=== PATIENT | female | born 1945 | race Caucasian/White ===

== ENCOUNTER → 2016-11-04 | Outpatient (REF) | payer OTHER, MEDICAID ==
[~2016-11-04] MED LIST: /ADVA50050; /GLYB5TA; /MOXI40TA; /TIOT18INH; ADV500INH INH; ALBU83IN; ALBU83IN INH; ALLO300T; ATOR40TA PO; CEFT250T; DIOV80TA3 PO; DOCU100C PO; DRISDOL; FERR324T5; FLAG500T PO; FLON0.05; FURO40TA2 PO; GABA-282 PO; GLIP5TAB PO; GLYBURIDE/METFORMIN; IMIP25TA2 PO; INCR1INH INH; INSUDET SC; INSULANT; LASI80TA; LASI80TA PO; LEVO500T32 PO; LIPI20TA; LORT5TAB PO; METF500T4; MILKSUS; MONT10TA2 PO; NYST50SS SS; NYSTATIN ORAL; OMEP40CA2 PO; PRED20TA; PRED5TAB; PRIL20CA; PROV90AE; SENN8.6T10 PO; SENO8.6T5; SING10TA31; SYNT125T; SYNT175T2 PO; TOFR50TA; TRIAMCINOLONE 0.1%; VALS80CA; VICT18IN SC; VITA50003 PO; VITAMIN D50000 UNT; XANA0.5T; XANA0.5T PO; ZOLO100T; ZYLO300T4 PO
== END ==
LOC: M SFHCPLAZ 08:24
PROVIDERS: ATTEND Internal Medicine
DX: N18.3 Chronic kidney disease, stage 3 (moderate) (principal); E78.00 Pure hypercholesterolemia, unspecified; E03.9 Hypothyroidism, unspecified; Z79.899 Other long term (current) drug therapy

== ENCOUNTER → 2017-03-02 | Outpatient (REF) | payer OTHER, MEDICAID ==
[~2017-03-02] MED LIST changes: -ATOR40TA PO; +ATOR40TA75 PO; -DOCU100C PO; +DOCU100C16 PO; -IMIP25TA2 PO; +IMIP25TA3 PO; +LEVO500T3 PO; -LEVO500T32 PO; +SENN1TAB10 PO; -SENN8.6T10 PO; +VITA1CAP40 PO; -VITA50003 PO
[2017-03-02 12:14] LABS: MEAN CORPUSCULAR HEMOGLOBIN 29.3 pg (27.0-33.0); MEAN CORPUSCULAR HGB CONC 32.3 g/dl (32.0-36.5); MEAN CORPUSCULAR VOLUME 90.8 fl (80.0-96.0); RED CELL DISTRIBUTION WIDTH 14.7 % (11.5-14.5); WHITE BLOOD COUNT 7.9 K/mm3 (4.0-10.0)
[2017-03-02 12:33] LABS: ALBUMIN/GLOBULIN RATIO 0.94 (1.00-1.93); BILIRUBIN,TOTAL 0.2 MG/DL (0.2-1.0); CALCIUM LEVEL 8.6 MG/DL (8.8-10.2); CREATININE FOR GFR 1.51 MG/DL (0.55-1.02); GLOMERULAR FILTRATION RATE 36.1 (>39); POTASSIUM SERUM 4.5 MEQ/L (3.5-5.1); TOTAL PROTEIN 6.2 GM/DL (6.4-8.2)
== END ==
LOC: M SFHCPLAZ 08:58
PROVIDERS: ATTEND Internal Medicine
DX: N18.3 Chronic kidney disease, stage 3 (moderate) (principal); D63.8 Anemia in other chronic diseases classified elsewhere; E11.21 Type 2 diabetes mellitus with diabetic nephropathy

== ENCOUNTER 2017-06-16 07:43 | Day surgery (SDC) | payer OTHER, MEDICAID ==
[~2017-06-16] VITALS: Ht 152.4 cm; Wt 105.6 kg
[~2017-06-16 07:43] MED LIST changes: +BSS with VANC/TOB/EPI for EYE CASES IR ONE; +CYCLOPENTOLATE 2% OPHTH SOLN 2ML BTL OS ONE; +LIDOCAINE 3.5 % 1ML OPHTH TOPICAL GEL OU ONE; +OFLOXACIN 0.3 % (OCUFLOX) OPTH SOL 5ML OS ONE; +PHENYLEPHRINE 2.5% OPHTH SOL 2ML OS ONE; +TROPICAMIDE 1% OPHTH SOLN 2ML OS ONE
[2017-06-16] MEDS ORDERED: POVIDONE-IODINE 5% OPHTH PREP SOL 30ML As Ordered ONE (10:03)
[2017-06-16] MEDS ORDERED: LIDOCAINE 1% SDV 5 ML VIAL As Ordered ONE (10:03)
[2017-06-16] MEDS ORDERED: TRIAMCINOLONE PRES FR 40 MG/ML 1ML(TRIESENCE)(OR EYE ONLY)(J3300 PER 1MG) As Ordered ONE (10:03)
[2017-06-16] MEDS ORDERED: HEALON DUET (HEALON 10MG/ML 0.55ML & HEALON ENDOCOAT 30MG/ML 0.85ML) As Ordered ONE (10:04)
[2017-06-16] MEDS ORDERED: MOXIFLOXACIN IN BSS 0.25MG/0.25ML INTRACAMERAL INJ (OR EYE ONLY)(J2280) As Ordered ONE (10:04)
[2017-06-16] MEDS ORDERED: MIDAZOLAM INJ 2 MG/2 ML VIAL (J2250) As Ordered ONE (10:23)
[2017-06-16] MEDS ORDERED: fentaNYL 100 MCG/2 ML INJECTION (J3010) As Ordered ONE (10:25)
[2017-06-16 11:00] VITALS: BP 119/59
--- NOTE | 2017-06-16 11:03 | RO ---
DATE OF PROCEDURE: 06/16/2017 PREPROCEDURE DIAGNOSES: Cataract left eye. Myosis left eye. POSTPROCEDURE DIAGNOSES: Cataract left eye. Myosis left eye. PROCEDURE: Phacoemulsification with intraocular lens implantation HOYA +2 24.5 and placement of Malyugin ring 7 mm. SURGEON: Dr. Gertrude Gold. CELLOPHANE WORKER: None. ANESTHESIA: COMPLICATION: None. DESCRIPTION OF PROCEDURE: The patient was brought to the operating room and laid in the supine position. The left eye was prepped and draped in a sterile fashion for ophthalmic surgery and a lid speculum was placed. A side-port incision was made and EndoCoat was injected into the anterior chamber. A temporal clear corneal incision was then made with a 2.5 mm keratome followed by capsulorrhexis. Prior to capsulorrhexis, a Malyugin ring 7 mm size was introduced into the anterior chamber to dilate the pupil. Hydrodissection was then carried out followed by phacoemulsification in a divide and conquer method within the capsular bag. This was followed by aspiration of the cortical material with irrigation and aspiration cannula. Healon was then placed into the capsular bag, intraocular lens inserted and Malyugin ring removed with the help of the introducer. Excess viscoelastic was aspirated. The wound hydrated and no leaks were noted. Intracameral moxifloxacin was given with triamcinolone. The lid speculum was removed. The patient returned to the recovery room in stable condition.
== END 2017-06-16 11:18 | disposition home or self-care (01) ==
LOC: M SDC 07:43
PROVIDERS: ATTEND Ophthalmology
DX: H25.012 Cortical age-related cataract, left eye (principal); H57.03 Miosis; I12.9 Hypertensive chronic kidney disease with stage 1 through stage 4 chronic kidney disease, or unspecified chronic kidney disease; N18.3 Chronic kidney disease, stage 3 (moderate); E78.00 Pure hypercholesterolemia, unspecified; E11.21 Type 2 diabetes mellitus with diabetic nephropathy; E03.9 Hypothyroidism, unspecified; K21.9 Gastro-esophageal reflux disease without esophagitis; D63.8 Anemia in other chronic diseases classified elsewhere; R06.02 Shortness of breath; M12.9 Arthropathy, unspecified; M10.9 Gout, unspecified; F34.1 Dysthymic disorder; M51.9 Unspecified thoracic, thoracolumbar and lumbosacral intervertebral disc disorder; J44.9 Chronic obstructive pulmonary disease, unspecified; R06.83 Snoring; G47.30 Sleep apnea, unspecified; Z88.0 Allergy status to penicillin; Z88.2 Allergy status to sulfonamides; Z88.8 Allergy status to other drugs, medicaments and biological substances; Z79.899 Other long term (current) drug therapy; Z79.4 Long term (current) use of insulin; Z90.710 Acquired absence of both cervix and uterus; Z78.0 Asymptomatic menopausal state; Z98.51 Tubal ligation status; Z96.612 Presence of left artificial shoulder joint; Z96.643 Presence of artificial hip joint, bilateral
CPT/HCPCS: 66982; J2250; J2280; J3010; J3300; V2632

== ENCOUNTER 2017-06-23 18:27 | Emergency (ER) | payer OTHER, MEDICAID ==
[~2017-06-23] VITALS: Ht 162.6 cm; Wt 104.5 kg
[~2017-06-23 18:27] MED LIST changes: -BSS with VANC/TOB/EPI for EYE CASES IR ONE; -CYCLOPENTOLATE 2% OPHTH SOLN 2ML BTL OS ONE; -LIDOCAINE 3.5 % 1ML OPHTH TOPICAL GEL OU ONE; -OFLOXACIN 0.3 % (OCUFLOX) OPTH SOL 5ML OS ONE; -PHENYLEPHRINE 2.5% OPHTH SOL 2ML OS ONE; -TROPICAMIDE 1% OPHTH SOLN 2ML OS ONE
[2017-06-23] MEDS ORDERED: ZOLO100T PO (18:43)
[2017-06-23] MEDS ORDERED: PERCOCET 5MG/325MG TAB PO ONE (19:30)
[2017-06-23] MEDS ORDERED: CYCLOBENZAPRINE 10 MG TAB PO ONE (19:30)
--- NOTE | 2017-06-23 20:17 | REP ---
Clinical: Neck pain. Technique: AP, lateral, flexion/extension, open-mouth, swimmer's and bilateral oblique views of the cervical spine. Comparison: 08/09/2001. Findings: Moderate to early advanced multilevel degenerative changes include osteophytosis, endplate sclerosis and disc space narrowing. Evidence for prior anterior fusion at the C5-6 level. Alignment is maintained. No acute fracture / compression injury or subluxation identified. Open mouth view demonstrates normal C1-C2 articulation and odontoid process. Oblique views demonstrate foraminal narrowing primarily at the C3-4 and C4-5 levels. Impression: Moderate/early advanced multilevel degenerative changes. Signed by Roland Graham MD 06/23/2017 08:09 P
[2017-06-23 20:55] VITALS: BP 138/67
[2017-06-23] MEDS ORDERED: PERC5TAB12 PO (21:04)
[2017-06-23] MEDS ORDERED: CYCL10TA PO (21:04)
== END 2017-06-23 21:40 | disposition home or self-care (01) ==
LOC: M ED 18:27
DX: M47.812 Spondylosis without myelopathy or radiculopathy, cervical region (principal); S13.4XXA Sprain of ligaments of cervical spine, initial encounter; X58.XXXA Exposure to other specified factors, initial encounter; Y92.89 Other specified places as the place of occurrence of the external cause; Y93.89 Activity, other specified; Y99.8 Other external cause status; E11.9 Type 2 diabetes mellitus without complications; I11.0 Hypertensive heart disease with heart failure; I50.9 Heart failure, unspecified; J45.909 Unspecified asthma, uncomplicated; G89.29 Other chronic pain; M54.9 Dorsalgia, unspecified; E78.5 Hyperlipidemia, unspecified; E03.9 Hypothyroidism, unspecified; F41.9 Anxiety disorder, unspecified; F33.9 Major depressive disorder, recurrent, unspecified; D64.9 Anemia, unspecified; G62.9 Polyneuropathy, unspecified; Z87.442 Personal history of urinary calculi; Z79.899 Other long term (current) drug therapy; Z79.4 Long term (current) use of insulin; Z79.51 Long term (current) use of inhaled steroids; Z88.0 Allergy status to penicillin; Z88.1 Allergy status to other antibiotic agents; Z88.2 Allergy status to sulfonamides; Z88.5 Allergy status to narcotic agent; Z88.8 Allergy status to other drugs, medicaments and biological substances; L23.1 Allergic contact dermatitis due to adhesives; Z87.891 Personal history of nicotine dependence

== ENCOUNTER → 2017-06-30 | Outpatient (CLI) | payer OTHER, MEDICAID ==
[~2017-06-30] MED LIST changes: +CYCL10TA PO; +PERC5TAB12 PO; +ZOLO100T PO
--- NOTE | 2017-06-30 10:49 | REPMRS ---
Patient History The patient states she had a clinical breast exam in 2016. Patient is postmenopausal. Family history of unknown cancer in son under age 50. Benign excisional biopsy of the left breast. Took unspecified hormones for 2 years. Digital Mammo Screening Bilat: June 30, 2017 - Exam #: [id number] Bilateral CC and MLO view(s) were taken. Technologist: Heidy Peter, Technologist Prior study comparison: June 29, 2016, bilateral digital mammo screening bilat performed at [facility]. June 15, 2014, bilateral bilat screen digital mammo, performed at [facility] ([facility]). FINDINGS: There are scattered fibroglandular densities. There has been no change in the appearance of the mammogram from the prior studies. There is a mild amount of scattered fibroglandular density which is fairly symmetric. There is no interval development of dominant mass, architectural distortion, or clustered microcalcification suggestive of malignancy. ASSESSMENT: BI-RADS/ACR category 1 mammogram. Negative. Recommendation Routine screening mammogram in 1 year (for women over age 40). This mammogram was interpreted with the aid of an FDA-approved computer-aided dectection system. Electronically Signed By: Froy Mohr MD 06/30/17 [id number]
== END ==
LOC: M RAD 10:11
PROVIDERS: ATTEND Obstetrics & Gynecology
DX: Z12.31 Encounter for screening mammogram for malignant neoplasm of breast (principal); Z78.0 Asymptomatic menopausal state; Z79.890 Hormone replacement therapy; Z80.9 Family history of malignant neoplasm, unspecified

== ENCOUNTER → 2017-08-13 | Outpatient (REF) | payer OTHER, MEDICAID ==
[2017-08-13 14:04] LABS: HEMATOCRIT 28.6 % (36.0-47.0); HEMOGLOBIN 8.9 g/dl (12.0-16.0); MEAN CORPUSCULAR HEMOGLOBIN 28.7 pg (27.0-33.0); MEAN CORPUSCULAR HGB CONC 31.1 g/dl (32.0-36.5); MEAN CORPUSCULAR VOLUME 92.3 fl (80.0-96.0); PLATELET COUNT, AUTOMATED 323 10^3/uL (150-450); RED CELL DISTRIBUTION WIDTH 15.1 % (11.5-14.5); WHITE BLOOD COUNT 11.8 10^3/uL (4.0-10.0)
[2017-08-13 14:40] LABS: ALBUMIN 3.5 GM/DL (3.2-5.2); ALBUMIN/GLOBULIN RATIO 1.06 (1.00-1.93); ALKALINE PHOSPHATASE 138 U/L (45-117); ALT/SGPT 15 U/L (12-78); ANION GAP 7 MEQ/L (8-16); AST/SGOT 15 U/L (7-37); BILIRUBIN,TOTAL 0.2 MG/DL (0.2-1.0); BLOOD UREA NITROGEN 39 MG/DL (7-18); CALCIUM LEVEL 8.9 MG/DL (8.8-10.2); CARBON DIOXIDE LEVEL 32 MEQ/L (21-32); CHLORIDE LEVEL 101 MEQ/L (98-107); CHOLESTEROL LEVEL 191 MG/DL (<200); CHOLESTEROL RISK RATIO 3.131 (<5); CREATININE FOR GFR 1.59 MG/DL (0.55-1.02); GLUCOSE, FASTING 146 MG/DL (83-110); HDL CHOLESTEROL 61 MG/DL (>40); LDL CHOLESTEROL 90.8 MG/DL (<100); NON-HDL-C 130 MG/DL; POTASSIUM SERUM 4.4 MEQ/L (3.5-5.1); SODIUM LEVEL 140 MEQ/L (136-145); TOTAL PROTEIN 6.8 GM/DL (6.4-8.2); TRIGLYCERIDES LEVEL 196 MG/DL (<150)
[2017-08-13 15:05] LABS: ESTIMATED AVERAGE GLUCOSE 148 MG/DL (60-110); HEMOGLOBIN A1c 6.8 %
[2017-08-13 16:39] LABS: TOTAL 25(OH) VITAMIN D 108.5 NG/ML (30.0-100.0)
[2017-08-13 16:40] LABS: PTH INTACT 157.2 PG/ML (14.0-72.0)
== END ==
LOC: M SFHCPLAZ 09:27
DX: N18.3 Chronic kidney disease, stage 3 (moderate) (principal); D63.1 Anemia in chronic kidney disease; E11.21 Type 2 diabetes mellitus with diabetic nephropathy; E78.00 Pure hypercholesterolemia, unspecified; E03.9 Hypothyroidism, unspecified; E55.9 Vitamin D deficiency, unspecified
CPT/HCPCS: 84443

== ENCOUNTER → 2017-11-01 | Outpatient (REF) | payer OTHER, MEDICAID ==
[2017-11-01 11:44] LABS: HEMATOCRIT 27.1 % (36.0-47.0); HEMOGLOBIN 8.3 g/dl (12.0-15.5); MEAN CORPUSCULAR HEMOGLOBIN 27.8 pg (27.0-33.0); MEAN CORPUSCULAR HGB CONC 30.6 g/dl (32.0-36.5); MEAN CORPUSCULAR VOLUME 90.6 fl (80.0-96.0); PLATELET COUNT, AUTOMATED 318 10^3/uL (150-450); RED BLOOD COUNT 2.99 10^6/uL (4.00-5.40); RED CELL DISTRIBUTION WIDTH 14.9 % (11.5-14.5); WHITE BLOOD COUNT 9.9 10^3/uL (4.0-10.0)
[2017-11-01 11:59] LABS: TOTAL 25(OH) VITAMIN D 74.4 NG/ML (30.0-100.0)
[2017-11-01 12:06] LABS: ESTIMATED AVERAGE GLUCOSE 174 MG/DL (60-110); HEMOGLOBIN A1c 7.7 %
[2017-11-01 12:59] LABS: ALBUMIN 2.8 GM/DL (3.2-5.2); ALBUMIN/GLOBULIN RATIO 0.82 (1.00-1.93); ALKALINE PHOSPHATASE 116 U/L (45-117); ALT/SGPT 11 U/L (12-78); ANION GAP 10 MEQ/L (8-16); AST/SGOT 10 U/L (7-37); BILIRUBIN,TOTAL 0.2 MG/DL (0.2-1.0); BLOOD UREA NITROGEN 23 MG/DL (7-18); CARBON DIOXIDE LEVEL 29 MEQ/L (21-32); CHLORIDE LEVEL 105 MEQ/L (98-107); CREATININE FOR GFR 1.23 MG/DL (0.55-1.30); GLOMERULAR FILTRATION RATE 45.6 (>39); GLUCOSE, FASTING 114 MG/DL (70-100); POTASSIUM SERUM 3.8 MEQ/L (3.5-5.1); SODIUM LEVEL 144 MEQ/L (136-145); THYROID STIMULATING HORMONE 0.167 uIU/ML (0.358-3.740); TOTAL PROTEIN 6.2 GM/DL (6.4-8.2); URIC ACID 5.4 MG/DL (2.6-6.0)
[2017-11-01 19:37] LABS: CREATININE, URINE 66.6 MG/DL; MALB URINE SIEMENS 99.4 MG/L; MAU/CREAT RATIO 149.2 MCG/MG (0.0-30.0)
== END ==
LOC: M SFHCPLAZ 09:04
DX: E03.9 Hypothyroidism, unspecified (principal); E11.21 Type 2 diabetes mellitus with diabetic nephropathy; N18.3 Chronic kidney disease, stage 3 (moderate); M10.9 Gout, unspecified; E55.9 Vitamin D deficiency, unspecified; D63.8 Anemia in other chronic diseases classified elsewhere
CPT/HCPCS: 84443

== ENCOUNTER 2018-02-20 12:21 | Emergency (ER) | payer OTHER, MEDICAID ==
[2018-02-20 16:02] LABS: HEMATOCRIT 29.8 % (36.0-47.0); HEMOGLOBIN 9.3 g/dl (12.0-15.5); MEAN CORPUSCULAR HEMOGLOBIN 27.4 pg (27.0-33.0); MEAN CORPUSCULAR HGB CONC 31.2 g/dl (32.0-36.5); MEAN CORPUSCULAR VOLUME 87.9 fl (80.0-96.0); PLATELET COUNT, AUTOMATED 327 10^3/uL (150-450); RED BLOOD COUNT 3.39 10^6/uL (4.00-5.40); RED CELL DISTRIBUTION WIDTH 16.1 % (11.5-14.5); WHITE BLOOD COUNT 10.9 10^3/uL (4.0-10.0)
[2018-02-20 16:20] LABS: ANION GAP 8 MEQ/L (8-16); BLOOD UREA NITROGEN 62 MG/DL (7-18); C REACTIVE PROTEIN QUANTITATIV 0.62 MG/DL (0.00-0.30); CARBON DIOXIDE LEVEL 32 MEQ/L (21-32); CHLORIDE LEVEL 101 MEQ/L (98-107); CREATININE FOR GFR 1.74 MG/DL (0.55-1.30); GLOMERULAR FILTRATION RATE 30.5 (>39); GLUCOSE, FASTING 75 MG/DL (70-100); POTASSIUM SERUM 3.9 MEQ/L (3.5-5.1); SODIUM LEVEL 141 MEQ/L (136-145)
[2018-02-20 16:21] LABS: ERYTHROCYTE SEDIMENTATION RATE 99 mm/hr (0-30)
== END 2018-02-20 17:04 | disposition home or self-care (01) ==
LOC: M ED 12:21
DX: L53.9 Erythematous condition, unspecified (principal); D50.9 Iron deficiency anemia, unspecified; E11.9 Type 2 diabetes mellitus without complications; J44.9 Chronic obstructive pulmonary disease, unspecified; E07.9 Disorder of thyroid, unspecified; M10.9 Gout, unspecified; F33.9 Major depressive disorder, recurrent, unspecified; F41.9 Anxiety disorder, unspecified; M51.9 Unspecified thoracic, thoracolumbar and lumbosacral intervertebral disc disorder; Z86.79 Personal history of other diseases of the circulatory system; Z86.39 Personal history of other endocrine, nutritional and metabolic disease; Z87.891 Personal history of nicotine dependence; Z79.899 Other long term (current) drug therapy; Z79.4 Long term (current) use of insulin; Z79.890 Hormone replacement therapy; Z86.19 Personal history of other infectious and parasitic diseases
CPT/HCPCS: 93970

== ENCOUNTER 2018-02-26 12:29 | Inpatient (IN) | payer OTHER, MEDICAID ==
[2018-02-26] MEDS: MORPHINE 2 MG/ML 1ML SYRINGE (J2270) IV ×2 (13:12→14:43)
[2018-02-26] MEDS: ONDANSETRON 4MG/2ML VIAL (J2405) IV (13:13)
[2018-02-26 13:18] LABS: BASO % 0.3 % (0.0-1.0); EOS # 0.2 10^3/uL (0.0-0.50); EOS % 1.2 % (0.0-3.0); HEMATOCRIT 30.7 % (36.0-47.0); HEMOGLOBIN 9.5 g/dl (12.0-15.5); IMMATURE GRANULOCYTE % 0.5 % (0-3.0); LYMPH # 1.8 10^3/uL (1.5-4.5); MEAN CORPUSCULAR HEMOGLOBIN 27.2 pg (27.0-33.0); MEAN CORPUSCULAR HGB CONC 30.9 g/dl (32.0-36.5); MONO # 0.8 10^3/uL (0.0-0.8); MONO % 5.3 % (0.0-5.0); NEUTROPHILS # 12.1 10^3/uL (1.8-7.7); NEUTROPHILS % 80.7 % (36.0-66.0); PLATELET COUNT, AUTOMATED 325 10^3/uL (150-450); RED BLOOD COUNT 3.49 10^6/uL (4.00-5.40); RED CELL DISTRIBUTION WIDTH 16.1 % (11.5-14.5)
[2018-02-26 13:55] LABS: ALBUMIN/GLOBULIN RATIO 0.86 (1.00-1.93); ALKALINE PHOSPHATASE 138 U/L (45-117); ALT/SGPT 13 U/L (12-78); ANION GAP 8 MEQ/L (8-16); AST/SGOT 11 U/L (7-37); BILIRUBIN,DIRECT < 0.1 MG/DL (0.0-0.2); BILIRUBIN,TOTAL 0.3 MG/DL (0.2-1.0); BLOOD UREA NITROGEN 55 MG/DL (7-18); C REACTIVE PROTEIN QUANTITATIV 2.44 MG/DL (0.00-0.30); CALCIUM LEVEL 8.9 MG/DL (8.8-10.2); CARBON DIOXIDE LEVEL 31 MEQ/L (21-32); CHLORIDE LEVEL 99 MEQ/L (98-107); CPK CREATINE PHOSPHOKINASE 33 U/L (26-192); CREATININE FOR GFR 1.77 MG/DL (0.55-1.30); FREE T4 1.23 NG/DL (0.76-1.46); GLOMERULAR FILTRATION RATE 29.9 (>39); GLUCOSE, FASTING 109 MG/DL (70-100); POTASSIUM SERUM 4.2 MEQ/L (3.5-5.1); SODIUM LEVEL 138 MEQ/L (136-145); THYROID STIMULATING HORMONE 0.361 uIU/ML (0.358-3.740); TOTAL PROTEIN 6.5 GM/DL (6.4-8.2)
[2018-02-26 14:02] LABS: ERYTHROCYTE SEDIMENTATION RATE 72 mm/hr (0-30)
[2018-02-26] MEDS ORDERED: IPRATROPIUM 0.5MG/ALBUTEROL 2.5MG INH SOL UD 3ML (DUONEB)(J7620) NEB (16:30)
[2018-02-26] MEDS ORDERED: GLUCOSE 4 GM CHEW TABLET PO (16:30)
[2018-02-26] MEDS ORDERED: ALBUTEROL SULFATE 2.5 MG/0.5 ML INH NEB SOLN INH (16:30)
[2018-02-26] MEDS ORDERED: GLUCAGON FOR INJ 1 MG VIAL (J1610) SC (16:30)
[2018-02-26] MEDS ORDERED: DEXTROSE 50% 50 ML SYRINGE IV (16:30)
[2018-02-26] MEDS ORDERED: ACETAMINOPHEN TAB 650MG DOSE (2X325MG) PO (16:45)
[2018-02-26 16:54] LABS: URIC ACID 4.2 MG/DL (2.6-6.0)
[2018-02-26] MEDS: MORPHINE 4 MG/ML 1ML VIAL/SYRINGE (J2270) IV ×2 (17:25→19:59)
[2018-02-26 17:40] LABS: BEDSIDE GLUCOSE 66 MG/DL (83-110)
[2018-02-26] MEDS: HumaLOG INSULIN (NovoLOG) PER UNIT SC ×2 (17:46→21:00)
[2018-02-26] MEDS ORDERED: LR 1,000 ML IV (18:00)
[2018-02-26] MEDS: LIDOCAINE 5% OINT 30 GM TOP (18:22)
[2018-02-26 18:32] LABS: BEDSIDE GLUCOSE 110 MG/DL (83-110)
[2018-02-26] MEDS: FEBUXOSTAT 40 MG TABLET (ULORIC) PO (18:45)
[2018-02-26] MEDS: NS 1,000 ML IV (19:10)
[2018-02-26] MEDS: PERCOCET 5MG/325MG TAB PO (19:25)
[2018-02-26] MEDS: ALPRAZolam 0.5 MG TAB PO (20:35)
[2018-02-26] MEDS: GABAPENTIN 300 MG CAP PO (20:35)
[2018-02-26] MEDS: OMEPRAZOLE 20 MG CAP PO (20:36)
[2018-02-26] MEDS: SENOKOT S TAB PO (20:36)
[2018-02-26] MEDS: ADVAIR HFA 230/21MCG INHALER INH (21:00)
[2018-02-26 21:50] LABS: BEDSIDE GLUCOSE 118 MG/DL (83-110)
[2018-02-26 21:57] LABS: SOURCE, BODY FLUID RT KNEE; SYNOVIAL FLUID COLOR PALE YELLOW (YELLOW)
[2018-02-26 21:58] LABS: APPEARANCE, BODY FLUID CLOUDY (CLEAR)
[2018-02-26 22:09] LABS: CRYSTALS, BODY FLUID CA PYROPHOSPHATE (NONE SEEN); SOURCE, BODY FLUID CRYSTALS RT KNEE
[2018-02-26 22:21] LABS: BF DIFF IF INDICATED? YES (NO); BF MONONUCLEAR CELL % 16.3 % (0-0); BF POLYMORPHONUCLEAR CELL % 83.7 % (0-0); RBC BODY FLUID < 2 10^3/uL (<2); WBC BODY FLUID 13430 /uL (0-10)
[2018-02-26 22:22] LABS: SOURCE, BODY FLUID GLUCOSE RT KNEE; SOURCE, BODY FLUID URIC ACID RT KNEE; URIC ACID, BODY FLUID 4.7 MG/DL (NOT ESTABLISHED)
[2018-02-26] MEDS: HEPARIN SOD (PORCINE) 5000 UNITS/ML VIAL SC (23:42)
[2018-02-26] MEDS: predniSONE 20 MG TAB PO (23:42)
[2018-02-27] MEDS: NYSTATIN 100,000 UNITS/GM TOPICAL PWD 15 GM TOP ×3 (00:16→21:54)
[2018-02-27] MEDS: BETAMETHASONE DIP 0.05% OINT 15 GM TOP ×2 (00:16→21:54)
[2018-02-27] MEDS: IMIPRAMINE 25 MG TAB PO ×3 (00:16→21:52)
[2018-02-27] MEDS: AQUAPHOR **100GM** OINT TOP ×2 (00:16→21:54)
[2018-02-27] MEDS: PERCOCET 5MG/325MG TAB PO ×3 (00:27→21:53)
[2018-02-27] MEDS: LEVOTHYROXINE 75MCG TABLET (0.075MG) PO (05:23)
[2018-02-27] MEDS: LEVOTHYROXINE 100MCG TABLET (0.1MG) PO (05:23)
[2018-02-27] MEDS: HEPARIN SOD (PORCINE) 5000 UNITS/ML VIAL SC ×3 (05:24→21:52)
[2018-02-27 06:27] LABS: HEMATOCRIT 27.5 % (36.0-47.0); HEMOGLOBIN 8.6 g/dl (12.0-15.5); MEAN CORPUSCULAR HEMOGLOBIN 27.7 pg (27.0-33.0); MEAN CORPUSCULAR HGB CONC 31.3 g/dl (32.0-36.5); MEAN CORPUSCULAR VOLUME 88.7 fl (80.0-96.0); PLATELET COUNT, AUTOMATED 247 10^3/uL (150-450); RED CELL DISTRIBUTION WIDTH 16.2 % (11.5-14.5); WHITE BLOOD COUNT 10.5 10^3/uL (4.0-10.0)
[2018-02-27 06:47] LABS: ANION GAP 7 MEQ/L (8-16); BLOOD UREA NITROGEN 52 MG/DL (7-18); C REACTIVE PROTEIN QUANTITATIV 4.69 MG/DL (0.00-0.30); CALCIUM LEVEL 8.5 MG/DL (8.8-10.2); CARBON DIOXIDE LEVEL 30 MEQ/L (21-32); CHLORIDE LEVEL 102 MEQ/L (98-107); CREATININE FOR GFR 1.82 MG/DL (0.55-1.30); GLUCOSE, FASTING 189 MG/DL (70-100); MAGNESIUM LEVEL 1.5 MG/DL (1.8-2.4); POTASSIUM SERUM 4.3 MEQ/L (3.5-5.1); SODIUM LEVEL 139 MEQ/L (136-145)
[2018-02-27] MEDS: HumaLOG INSULIN (NovoLOG) PER UNIT SC ×4 (07:30→21:00)
[2018-02-27] MEDS: ADVAIR HFA 230/21MCG INHALER INH ×2 (07:36→19:56)
[2018-02-27] MEDS: CALCITRIOL 0.25 MCG CAP (S0169) PO (08:15)
[2018-02-27] MEDS: ATORVASTATIN 20 MG TAB PO (08:15)
[2018-02-27] MEDS: MONTELUKAST 10 MG TAB PO (08:15)
[2018-02-27] MEDS: SERTRALINE HCL 25 MG TABLET PO (08:16)
[2018-02-27] MEDS: SERTRALINE HCL 50 MG TAB PO (08:16)
[2018-02-27] MEDS: predniSONE 20 MG TAB PO (08:16)
[2018-02-27] MEDS: GABAPENTIN 300 MG CAP PO ×3 (08:16→21:52)
[2018-02-27] MEDS: OMEPRAZOLE 20 MG CAP PO ×2 (08:16→21:53)
[2018-02-27] MEDS: SENOKOT S TAB PO ×2 (08:17→21:52)
[2018-02-27] MEDS: ALPRAZolam 0.5 MG TAB PO ×2 (08:17→21:52)
[2018-02-27] MEDS ORDERED: LEVEMIR (INSULIN DETEMIR) 1 UNITS/0.01ML SC (09:00)
[2018-02-27] MEDS: LIDOCAINE 5% OINT 30 GM TOP (09:00)
[2018-02-27] MEDS: NS 1,000 ML IV ×2 (10:35→22:50)
[2018-02-27] MEDS: MAG SULF 1GM/100ML (MAG RUN) 1 GM in APPROPRIATE DILUENT 1 EA IV (10:36)
[2018-02-27] MEDS: FEBUXOSTAT 40 MG TABLET (ULORIC) PO (10:38)
[2018-02-27 11:31] LABS: BEDSIDE GLUCOSE 324 MG/DL (83-110)
[2018-02-27 16:54] LABS: BEDSIDE GLUCOSE 202 MG/DL (83-110)
[2018-02-27 20:26] LABS: ANION GAP 8 MEQ/L (8-16); BLOOD UREA NITROGEN 61 MG/DL (7-18); CALCIUM LEVEL 8.1 MG/DL (8.8-10.2); CARBON DIOXIDE LEVEL 28 MEQ/L (21-32); CHLORIDE LEVEL 102 MEQ/L (98-107); CREATININE FOR GFR 2.08 MG/DL (0.55-1.30); GLOMERULAR FILTRATION RATE 24.8 (>39); GLUCOSE, FASTING 231 MG/DL (70-100); POTASSIUM SERUM 4.7 MEQ/L (3.5-5.1); SODIUM LEVEL 138 MEQ/L (136-145)
[2018-02-27 21:03] LABS: BEDSIDE GLUCOSE 186 MG/DL (83-110)
[2018-02-28 04:08] LABS: BODY FLUID RHEUMATOID SCREEN NEGATIVE (NEGATIVE)
[2018-02-28 04:09] LABS: MUCIN CLOT TEST 4+ (4+)
[2018-02-28] MEDS: LEVOTHYROXINE 75MCG TABLET (0.075MG) PO (05:29)
[2018-02-28] MEDS: HEPARIN SOD (PORCINE) 5000 UNITS/ML VIAL SC ×3 (05:29→22:12)
[2018-02-28] MEDS: LEVOTHYROXINE 100MCG TABLET (0.1MG) PO (05:29)
[2018-02-28 06:04] LABS: HEMATOCRIT 26.7 % (36.0-47.0); HEMOGLOBIN 8.3 g/dl (12.0-15.5); MEAN CORPUSCULAR HEMOGLOBIN 27.8 pg (27.0-33.0); MEAN CORPUSCULAR HGB CONC 31.1 g/dl (32.0-36.5); MEAN CORPUSCULAR VOLUME 89.3 fl (80.0-96.0); PLATELET COUNT, AUTOMATED 274 10^3/uL (150-450); RED BLOOD COUNT 2.99 10^6/uL (4.00-5.40); RED CELL DISTRIBUTION WIDTH 15.9 % (11.5-14.5)
[2018-02-28 06:18] LABS: ANION GAP 7 MEQ/L (8-16); BLOOD UREA NITROGEN 61 MG/DL (7-18); C REACTIVE PROTEIN QUANTITATIV 5.41 MG/DL (0.00-0.30); CALCIUM LEVEL 8.7 MG/DL (8.8-10.2); CARBON DIOXIDE LEVEL 30 MEQ/L (21-32); CHLORIDE LEVEL 102 MEQ/L (98-107); CREATININE FOR GFR 1.94 MG/DL (0.55-1.30); GLOMERULAR FILTRATION RATE 26.9 (>39); GLUCOSE, FASTING 160 MG/DL (70-100); MAGNESIUM LEVEL 1.8 MG/DL (1.8-2.4); POTASSIUM SERUM 4.4 MEQ/L (3.5-5.1); SODIUM LEVEL 139 MEQ/L (136-145)
[2018-02-28] MEDS: HumaLOG INSULIN (NovoLOG) PER UNIT SC ×4 (08:14→22:19)
[2018-02-28] MEDS: ADVAIR HFA 230/21MCG INHALER INH ×2 (08:36→21:13)
[2018-02-28] MEDS: INCRUSE ELLIPTA 62.5 MCG INH (09:00)
[2018-02-28] MEDS: LIDOCAINE 5% OINT 30 GM TOP (09:00)
[2018-02-28] MEDS: ALPRAZolam 0.5 MG TAB PO ×2 (11:09→22:12)
[2018-02-28] MEDS: MONTELUKAST 10 MG TAB PO (11:21)
[2018-02-28] MEDS: FEBUXOSTAT 40 MG TABLET (ULORIC) PO (11:21)
[2018-02-28] MEDS: CALCITRIOL 0.25 MCG CAP (S0169) PO (11:21)
[2018-02-28] MEDS: SENOKOT S TAB PO ×2 (11:22→22:12)
[2018-02-28] MEDS: IMIPRAMINE 25 MG TAB PO ×2 (11:22→22:12)
[2018-02-28] MEDS: ATORVASTATIN 20 MG TAB PO (11:22)
[2018-02-28] MEDS: SERTRALINE HCL 25 MG TABLET PO (11:22)
[2018-02-28] MEDS: GABAPENTIN 300 MG CAP PO ×3 (11:23→22:13)
[2018-02-28] MEDS: SERTRALINE HCL 50 MG TAB PO (11:23)
[2018-02-28] MEDS: OMEPRAZOLE 20 MG CAP PO ×2 (11:23→22:12)
[2018-02-28] MEDS: predniSONE 20 MG TAB PO (11:23)
[2018-02-28] MEDS: NYSTATIN 100,000 UNITS/GM TOPICAL PWD 15 GM TOP ×2 (11:24→22:14)
[2018-02-28 11:45] LABS: BEDSIDE GLUCOSE 149 MG/DL (83-110)
[2018-02-28] MEDS: NS 1,000 ML IV (13:09)
[2018-02-28] MEDS: PERCOCET 5MG/325MG TAB PO (15:19)
[2018-02-28 16:50] LABS: BEDSIDE GLUCOSE 274 MG/DL (83-110)
[2018-02-28 20:19] LABS: BEDSIDE GLUCOSE 350 MG/DL (83-110)
[2018-02-28] MEDS: BETAMETHASONE DIP 0.05% OINT 15 GM TOP (22:15)
[2018-02-28] MEDS: AQUAPHOR **100GM** OINT TOP (22:15)
[2018-02-28] MEDS: MIRALAX *UNIT DOSE* 17GM PACKET PO (22:56)
[2018-03-01] MEDS: LEVOTHYROXINE 75MCG TABLET (0.075MG) PO (05:17)
[2018-03-01] MEDS: HEPARIN SOD (PORCINE) 5000 UNITS/ML VIAL SC ×3 (05:17→22:00)
[2018-03-01] MEDS: LEVOTHYROXINE 100MCG TABLET (0.1MG) PO (05:17)
[2018-03-01 05:56] LABS: HEMATOCRIT 23.8 % (36.0-47.0); HEMOGLOBIN 7.6 g/dl (12.0-15.5); MEAN CORPUSCULAR HEMOGLOBIN 27.4 pg (27.0-33.0); MEAN CORPUSCULAR HGB CONC 31.9 g/dl (32.0-36.5); MEAN CORPUSCULAR VOLUME 85.9 fl (80.0-96.0); PLATELET COUNT, AUTOMATED 250 10^3/uL (150-450); RED BLOOD COUNT 2.77 10^6/uL (4.00-5.40); RED CELL DISTRIBUTION WIDTH 15.7 % (11.5-14.5); WHITE BLOOD COUNT 9.5 10^3/uL (4.0-10.0)
[2018-03-01 06:20] LABS: ANION GAP 8 MEQ/L (8-16); BLOOD UREA NITROGEN 53 MG/DL (7-18); C REACTIVE PROTEIN QUANTITATIV 2.42 MG/DL (0.00-0.30); CALCIUM LEVEL 8.4 MG/DL (8.8-10.2); CARBON DIOXIDE LEVEL 28 MEQ/L (21-32); CHLORIDE LEVEL 104 MEQ/L (98-107); CREATININE FOR GFR 1.54 MG/DL (0.55-1.30); GLOMERULAR FILTRATION RATE 35.2 (>39); GLUCOSE, FASTING 178 MG/DL (70-100); MAGNESIUM LEVEL 1.8 MG/DL (1.8-2.4); POTASSIUM SERUM 4.3 MEQ/L (3.5-5.1); SODIUM LEVEL 140 MEQ/L (136-145)
[2018-03-01] MEDS: ADVAIR HFA 230/21MCG INHALER INH ×2 (08:10→20:17)
[2018-03-01] MEDS: INCRUSE ELLIPTA 62.5 MCG INH (08:10)
[2018-03-01] MEDS: HumaLOG INSULIN (NovoLOG) PER UNIT SC ×4 (08:15→22:00)
[2018-03-01] MEDS: CALCITRIOL 0.25 MCG CAP (S0169) PO (08:16)
[2018-03-01] MEDS: ATORVASTATIN 20 MG TAB PO (08:16)
[2018-03-01] MEDS: ALPRAZolam 0.5 MG TAB PO ×2 (08:16→21:59)
[2018-03-01] MEDS: SENOKOT S TAB PO ×2 (08:16→21:59)
[2018-03-01] MEDS: GABAPENTIN 300 MG CAP PO ×3 (08:16→21:59)
[2018-03-01] MEDS: FEBUXOSTAT 40 MG TABLET (ULORIC) PO (08:16)
[2018-03-01] MEDS: IMIPRAMINE 25 MG TAB PO ×2 (08:16→21:59)
[2018-03-01] MEDS: OMEPRAZOLE 20 MG CAP PO ×2 (08:16→21:59)
[2018-03-01] MEDS: predniSONE 20 MG TAB PO (08:17)
[2018-03-01] MEDS: MONTELUKAST 10 MG TAB PO (08:17)
[2018-03-01] MEDS: SERTRALINE HCL 50 MG TAB PO (08:17)
[2018-03-01] MEDS: SERTRALINE HCL 25 MG TABLET PO (08:17)
[2018-03-01] MEDS: NYSTATIN 100,000 UNITS/GM TOPICAL PWD 15 GM TOP ×2 (08:18→22:01)
[2018-03-01] MEDS: LIDOCAINE 5% OINT 30 GM TOP (09:00)
[2018-03-01 11:38] LABS: BEDSIDE GLUCOSE 210 MG/DL (83-110)
[2018-03-01 15:13] LABS: HEMATOCRIT 24.4 % (36.0-47.0); HEMOGLOBIN 7.6 g/dl (12.0-15.5); MEAN CORPUSCULAR HGB CONC 31.1 g/dl (32.0-36.5); MEAN CORPUSCULAR VOLUME 86.8 fl (80.0-96.0); PLATELET COUNT, AUTOMATED 259 10^3/uL (150-450); RED BLOOD COUNT 2.81 10^6/uL (4.00-5.40); RED CELL DISTRIBUTION WIDTH 15.9 % (11.5-14.5); WHITE BLOOD COUNT 8.6 10^3/uL (4.0-10.0)
[2018-03-01 15:35] LABS: VITAMIN B12 LEVEL 285 PG/ML (247-911)
[2018-03-01 15:36] LABS: FOLATE 6.3 NG/ML (>5.4)
[2018-03-01 15:57] LABS: FERRITIN 63 NG/ML (8-252); IRON (FE) 45 UG/DL (50-170); PERCENT SATURATION 15.6 % (13.2-45.0); TOTAL IRON BINDING CAPACITY 289 UG/DL (250-450)
[2018-03-01 16:29] LABS: BEDSIDE GLUCOSE 307 MG/DL (83-110)
[2018-03-01 19:26] LABS: IMMEDIATE SPIN CROSSMATCH 1 1
[2018-03-01 21:14] LABS: BEDSIDE GLUCOSE 276 MG/DL (83-110)
[2018-03-01] MEDS: BETAMETHASONE DIP 0.05% OINT 15 GM TOP (22:01)
[2018-03-01] MEDS: AQUAPHOR **100GM** OINT TOP (22:01)
[2018-03-02 00:14] LABS: HERPES ZOSTER, VARICELLA IgG 1058 index (Immune >165)
[2018-03-02 00:14] LABS: HERPES ZOSTER, VARICELLA IgM <0.91 index (0.00-0.90)
[2018-03-02] MEDS: LEVOTHYROXINE 75MCG TABLET (0.075MG) PO (05:18)
[2018-03-02] MEDS: HEPARIN SOD (PORCINE) 5000 UNITS/ML VIAL SC ×2 (05:18→13:56)
[2018-03-02] MEDS: LEVOTHYROXINE 100MCG TABLET (0.1MG) PO (05:19)
[2018-03-02 06:27] LABS: HEMATOCRIT 28.1 % (36.0-47.0); HEMOGLOBIN 8.9 g/dl (12.0-15.5); MEAN CORPUSCULAR HGB CONC 31.7 g/dl (32.0-36.5); MEAN CORPUSCULAR VOLUME 88.4 fl (80.0-96.0); PLATELET COUNT, AUTOMATED 259 10^3/uL (150-450); RED BLOOD COUNT 3.18 10^6/uL (4.00-5.40); RED CELL DISTRIBUTION WIDTH 15.4 % (11.5-14.5); WHITE BLOOD COUNT 9.3 10^3/uL (4.0-10.0)
[2018-03-02 06:45] LABS: ANION GAP 6 MEQ/L (8-16); BLOOD UREA NITROGEN 42 MG/DL (7-18); C REACTIVE PROTEIN QUANTITATIV 1.11 MG/DL (0.00-0.30); CALCIUM LEVEL 8.7 MG/DL (8.8-10.2); CARBON DIOXIDE LEVEL 27 MEQ/L (21-32); CHLORIDE LEVEL 108 MEQ/L (98-107); CREATININE FOR GFR 1.36 MG/DL (0.55-1.30); GLOMERULAR FILTRATION RATE 40.6 (>39); GLUCOSE, FASTING 181 MG/DL (70-100); MAGNESIUM LEVEL 1.7 MG/DL (1.8-2.4); POTASSIUM SERUM 4.2 MEQ/L (3.5-5.1); SODIUM LEVEL 141 MEQ/L (136-145)
[2018-03-02] MEDS: INCRUSE ELLIPTA 62.5 MCG INH (07:07)
[2018-03-02] MEDS: ADVAIR HFA 230/21MCG INHALER INH (07:36)
[2018-03-02] MEDS: HumaLOG INSULIN (NovoLOG) PER UNIT SC ×2 (08:40→12:00)
[2018-03-02] MEDS: MAG SULF 1GM/100ML (MAG RUN) 1 GM in APPROPRIATE DILUENT 1 EA IV (08:40)
[2018-03-02] MEDS: IMIPRAMINE 25 MG TAB PO (08:41)
[2018-03-02] MEDS: CYANOCOBALAMIN 1,000 MCG/ML VIAL (J3420) IM (08:41)
[2018-03-02] MEDS: SERTRALINE HCL 50 MG TAB PO (08:41)
[2018-03-02] MEDS: FEBUXOSTAT 40 MG TABLET (ULORIC) PO (08:41)
[2018-03-02] MEDS: CALCITRIOL 0.25 MCG CAP (S0169) PO (08:41)
[2018-03-02] MEDS: OMEPRAZOLE 20 MG CAP PO (08:41)
[2018-03-02] MEDS: FOLIC ACID 1 MG TAB PO (08:42)
[2018-03-02] MEDS: SERTRALINE HCL 25 MG TABLET PO (08:42)
[2018-03-02] MEDS: FERROUS GLUCONATE 324 MG TAB PO (08:42)
[2018-03-02] MEDS: ATORVASTATIN 20 MG TAB PO (08:42)
[2018-03-02] MEDS: ALPRAZolam 0.5 MG TAB PO (08:43)
[2018-03-02] MEDS: MONTELUKAST 10 MG TAB PO (08:43)
[2018-03-02] MEDS: GABAPENTIN 300 MG CAP PO ×2 (08:43→16:00)
[2018-03-02] MEDS: SENOKOT S TAB PO (08:43)
[2018-03-02] MEDS: LIDOCAINE 5% OINT 30 GM TOP (09:00)
[2018-03-02] MEDS ORDERED: predniSONE 20 MG TAB PO (09:00)
[2018-03-02 11:20] LABS: BEDSIDE GLUCOSE 127 MG/DL (83-110)
[2018-03-02] MEDS: NYSTATIN 100,000 UNITS/GM TOPICAL PWD 15 GM TOP (12:01)
[2018-03-02 16:30] LABS: BEDSIDE GLUCOSE 188 MG/DL (83-110)
== END 2018-03-02 17:10 | disposition home or self-care (01) | DRG 552 ==
LOC: M ED 12:29 → M ED INP 17:47 → M MS5PR 22:50
PROC: 0S9C3ZX Drainage of Right Knee Joint, Percutaneous Approach, Diagnostic (ICD-10-PCS; principal; 2018-02-26)
PROC: 30233N1 Transfusion of Nonautologous Red Blood Cells into Peripheral Vein, Percutaneous Approach (ICD-10-PCS; 2018-03-01)
DX: M51.16 Intervertebral disc disorders with radiculopathy, lumbar region (principal); Z68.41 Body mass index [BMI] 40.0-44.9, adult; B02.29 Other postherpetic nervous system involvement; N17.9 Acute kidney failure, unspecified; M48.061 Spinal stenosis, lumbar region without neurogenic claudication; M11.261 Other chondrocalcinosis, right knee; E66.01 Morbid (severe) obesity due to excess calories; N18.3 Chronic kidney disease, stage 3 (moderate); E11.649 Type 2 diabetes mellitus with hypoglycemia without coma; E11.51 Type 2 diabetes mellitus with diabetic peripheral angiopathy without gangrene; I12.9 Hypertensive chronic kidney disease with stage 1 through stage 4 chronic kidney disease, or unspecified chronic kidney disease; F41.9 Anxiety disorder, unspecified; E11.22 Type 2 diabetes mellitus with diabetic chronic kidney disease; F32.9 Major depressive disorder, single episode, unspecified; E11.43 Type 2 diabetes mellitus with diabetic autonomic (poly)neuropathy; M17.11 Unilateral primary osteoarthritis, right knee; J44.9 Chronic obstructive pulmonary disease, unspecified; K21.9 Gastro-esophageal reflux disease without esophagitis; E78.5 Hyperlipidemia, unspecified; E03.9 Hypothyroidism, unspecified; D50.9 Iron deficiency anemia, unspecified; K59.09 Other constipation; E53.8 Deficiency of other specified B group vitamins; G47.33 Obstructive sleep apnea (adult) (pediatric); Z88.0 Allergy status to penicillin; Z88.2 Allergy status to sulfonamides; Z91.048 Other nonmedicinal substance allergy status; Z88.8 Allergy status to other drugs, medicaments and biological substances; Z88.5 Allergy status to narcotic agent; Z96.643 Presence of artificial hip joint, bilateral; Z98.51 Tubal ligation status; Z96.652 Presence of left artificial knee joint; Z90.710 Acquired absence of both cervix and uterus; Z90.49 Acquired absence of other specified parts of digestive tract; Z98.41 Cataract extraction status, right eye; Z98.42 Cataract extraction status, left eye; Z96.612 Presence of left artificial shoulder joint; Z87.891 Personal history of nicotine dependence; Z79.51 Long term (current) use of inhaled steroids; Z79.4 Long term (current) use of insulin; Z79.899 Other long term (current) drug therapy

== ENCOUNTER → 2018-04-06 | Outpatient (CLI) | payer OTHER, MEDICAID | LOC: M PAIN 10:15 | DX: M46.1 Sacroiliitis, not elsewhere classified (principal); G89.29 Other chronic pain; E11.21 Type 2 diabetes mellitus with diabetic nephropathy; E11.49 Type 2 diabetes mellitus with other diabetic neurological complication; E11.43 Type 2 diabetes mellitus with diabetic autonomic (poly)neuropathy; N18.3 Chronic kidney disease, stage 3 (moderate); E03.9 Hypothyroidism, unspecified; E78.00 Pure hypercholesterolemia, unspecified; D64.9 Anemia, unspecified; J44.9 Chronic obstructive pulmonary disease, unspecified; K21.9 Gastro-esophageal reflux disease without esophagitis; M19.041 Primary osteoarthritis, right hand; E53.8 Deficiency of other specified B group vitamins; E66.01 Morbid (severe) obesity due to excess calories; Z68.41 Body mass index [BMI] 40.0-44.9, adult; Z79.84 Long term (current) use of oral hypoglycemic drugs; Z79.51 Long term (current) use of inhaled steroids; Z88.0 Allergy status to penicillin; Z88.2 Allergy status to sulfonamides; Z88.5 Allergy status to narcotic agent; Z88.8 Allergy status to other drugs, medicaments and biological substances; Z96.652 Presence of left artificial knee joint; Z96.612 Presence of left artificial shoulder joint; Z87.39 Personal history of other diseases of the musculoskeletal system and connective tissue; Z87.891 Personal history of nicotine dependence | CPT/HCPCS: G0463 ==

== ENCOUNTER → 2018-05-17 | Outpatient (CLI) | payer OTHER, MEDICAID ==
[~2018-05-17] MED LIST changes: -/ADVA50050; -/GLYB5TA; -/MOXI40TA; -/TIOT18INH; -ADV500INH INH; -ALBU83IN; -ALBU83IN INH; -ALLO300T; -ATOR40TA75 PO; +BUPIVACAINE HCL 0.25% 30 ML VIAL As Ordered; -CEFT250T; -CYCL10TA PO; -DIOV80TA3 PO; -DOCU100C16 PO; -DRISDOL; -FERR324T5; -FLAG500T PO; -FLON0.05; -FURO40TA2 PO; -GABA-282 PO; -GLIP5TAB PO; -GLYBURIDE/METFORMIN; -IMIP25TA3 PO; -INCR1INH INH; -INSUDET SC; -INSULANT; +ISOVUE-M 300 61% 15ML VIAL (Q9967) As Ordered; -LASI80TA; -LASI80TA PO; -LEVO500T3 PO; +LIDOCAINE 1% SDV INJ 30 ML VIAL As Ordered; -LIPI20TA; -LORT5TAB PO; -METF500T4; -MILKSUS; -MONT10TA2 PO; -NYST50SS SS; -NYSTATIN ORAL; -OMEP40CA2 PO; -PERC5TAB12 PO; -PRED20TA; -PRED5TAB; -PRIL20CA; -PROV90AE; -SENN1TAB10 PO; -SENO8.6T5; -SING10TA31; -SYNT125T; -SYNT175T2 PO; -TOFR50TA; -TRIAMCINOLONE 0.1%; +TRIAMCINOLONE ACETONIDE SUSP 40 MG/ML VIAL (J3301) As Ordered; -VALS80CA; -VICT18IN SC; -VITA1CAP40 PO; -VITAMIN D50000 UNT; -XANA0.5T; -XANA0.5T PO; -ZOLO100T; -ZOLO100T PO; -ZYLO300T4 PO
== END ==
LOC: M PAIN 10:30
DX: M46.1 Sacroiliitis, not elsewhere classified (principal); E11.21 Type 2 diabetes mellitus with diabetic nephropathy; E11.22 Type 2 diabetes mellitus with diabetic chronic kidney disease; N18.3 Chronic kidney disease, stage 3 (moderate); E03.9 Hypothyroidism, unspecified; E78.00 Pure hypercholesterolemia, unspecified; D63.8 Anemia in other chronic diseases classified elsewhere; J44.9 Chronic obstructive pulmonary disease, unspecified; E11.43 Type 2 diabetes mellitus with diabetic autonomic (poly)neuropathy; R60.0 Localized edema; K21.9 Gastro-esophageal reflux disease without esophagitis; G47.30 Sleep apnea, unspecified; F34.1 Dysthymic disorder; M10.9 Gout, unspecified; E55.9 Vitamin D deficiency, unspecified; K31.84 Gastroparesis; M54.16 Radiculopathy, lumbar region; M19.042 Primary osteoarthritis, left hand; Z79.4 Long term (current) use of insulin; Z79.899 Other long term (current) drug therapy; Z87.891 Personal history of nicotine dependence; Z88.0 Allergy status to penicillin; Z88.5 Allergy status to narcotic agent; Z88.2 Allergy status to sulfonamides; Z88.8 Allergy status to other drugs, medicaments and biological substances
CPT/HCPCS: J3301

== ENCOUNTER → 2018-05-27 | Outpatient (CLI) | payer OTHER, MEDICAID | LOC: M RAD 10:08 | DX: M79.604 Pain in right leg (principal); M79.605 Pain in left leg; I77.1 Stricture of artery | CPT/HCPCS: 93925 ==

== ENCOUNTER → 2018-06-02 | Outpatient (CLI) | payer OTHER, MEDICAID | LOC: M PAIN 13:00 | DX: M46.1 Sacroiliitis, not elsewhere classified (principal); E11.22 Type 2 diabetes mellitus with diabetic chronic kidney disease; E11.43 Type 2 diabetes mellitus with diabetic autonomic (poly)neuropathy; N18.3 Chronic kidney disease, stage 3 (moderate); E03.9 Hypothyroidism, unspecified; E78.00 Pure hypercholesterolemia, unspecified; D63.8 Anemia in other chronic diseases classified elsewhere; J44.9 Chronic obstructive pulmonary disease, unspecified; K21.9 Gastro-esophageal reflux disease without esophagitis; G47.30 Sleep apnea, unspecified; F34.1 Dysthymic disorder; E55.9 Vitamin D deficiency, unspecified; M19.041 Primary osteoarthritis, right hand; M19.042 Primary osteoarthritis, left hand; Z79.51 Long term (current) use of inhaled steroids; Z79.84 Long term (current) use of oral hypoglycemic drugs; Z79.899 Other long term (current) drug therapy; Z88.0 Allergy status to penicillin; Z88.2 Allergy status to sulfonamides; Z88.5 Allergy status to narcotic agent; Z88.8 Allergy status to other drugs, medicaments and biological substances; Z87.39 Personal history of other diseases of the musculoskeletal system and connective tissue; Z96.652 Presence of left artificial knee joint; Z96.612 Presence of left artificial shoulder joint | CPT/HCPCS: G0463 ==

== ENCOUNTER → 2018-06-20 | Outpatient (REF) | payer OTHER, MEDICAID ==
[2018-06-20 12:17] LABS: HEMOGLOBIN 9.4 g/dl (12.0-15.5); MEAN CORPUSCULAR HEMOGLOBIN 29.5 pg (27.0-33.0); MEAN CORPUSCULAR HGB CONC 31.3 g/dl (32.0-36.5); PLATELET COUNT, AUTOMATED 322 10^3/uL (150-450); RED BLOOD COUNT 3.19 10^6/uL (4.00-5.40); RED CELL DISTRIBUTION WIDTH 14.2 % (11.5-14.5)
[2018-06-20 12:36] LABS: ALBUMIN 3.4 GM/DL (3.2-5.2); ALBUMIN/GLOBULIN RATIO 1.17 (1.00-1.93); ALKALINE PHOSPHATASE 114 U/L (45-117); ALT/SGPT 17 U/L (12-78); ANION GAP 8 MEQ/L (8-16); AST/SGOT 11 U/L (7-37); BILIRUBIN,TOTAL 0.2 MG/DL (0.2-1.0); BLOOD UREA NITROGEN 36 MG/DL (7-18); CALCIUM LEVEL 9.2 MG/DL (8.8-10.2); CARBON DIOXIDE LEVEL 32 MEQ/L (21-32); CHLORIDE LEVEL 101 MEQ/L (98-107); CHOLESTEROL LEVEL 186 MG/DL (<200); CREATININE FOR GFR 1.51 MG/DL (0.55-1.30); GLUCOSE, FASTING 88 MG/DL (70-100); HDL CHOLESTEROL 60 MG/DL (>40); LDL CHOLESTEROL 100 MG/DL (<100); NON-HDL-C 126 MG/DL; POTASSIUM SERUM 3.9 MEQ/L (3.5-5.1); PTH INTACT 69.7 PG/ML (18.5-88.0); SODIUM LEVEL 141 MEQ/L (136-145); TOTAL PROTEIN 6.3 GM/DL (6.4-8.2); TRIGLYCERIDES LEVEL 128 MG/DL (<150)
== END ==
LOC: M SFHCPLAZ 08:13
DX: N18.3 Chronic kidney disease, stage 3 (moderate) (principal); D63.8 Anemia in other chronic diseases classified elsewhere; E78.00 Pure hypercholesterolemia, unspecified; E03.9 Hypothyroidism, unspecified; B20 Human immunodeficiency virus [HIV] disease
CPT/HCPCS: 84443

== ENCOUNTER → 2018-06-27 | Outpatient (REF) | payer OTHER, MEDICAID ==
[2018-06-27 18:09] LABS: ESTIMATED AVERAGE GLUCOSE 137 MG/DL (60-110); HEMOGLOBIN A1c 6.4 %
== END ==
LOC: M SFHCPLAZ 14:58
DX: E11.21 Type 2 diabetes mellitus with diabetic nephropathy (principal); Z23 Encounter for immunization
CPT/HCPCS: 83036

== ENCOUNTER → 2018-10-13 | Outpatient (CLI) | payer MEDICARE, MEDICAID ==
[~2018-10-13] MED LIST changes: +/ADVA50050; +/GLYB5TA; +/MOXI40TA; +/TIOT18INH; +ADV500INH INH; +ALBU83IN; +ALBU83IN INH; +ALLO300T; +AQUAOIN2 TOP; +ATOR40TA75 PO; +BENA25CA4 PO; +BETA5OI TOP; -BUPIVACAINE HCL 0.25% 30 ML VIAL As Ordered; +CEFT250T; +CICL0.7739 TOP; +CYAN1000VL IM; +CYCL10TA PO; +DIOV80TA3 PO; +DOCU100C16 PO; +DRISDOL; +FERR324T5; +FERR32TA PO; +FLAG500T PO; +FLON0.05; +FOLI1TAB11 PO; +FURO40TA2 PO; +GABA-843 PO; +GLIP5TAB PO; +GLYBURIDE/METFORMIN; +IMIP25TA3 PO; +INCR1INH INH; +INSUDET SC; +INSULANT; -ISOVUE-M 300 61% 15ML VIAL (Q9967) As Ordered; +LASI80TA; +LASI80TA3 PO; +LEVO500T3 PO; +LIDO5OIN28 TOP; -LIDOCAINE 1% SDV INJ 30 ML VIAL As Ordered; +LIPI20TA; +LORT5TAB PO; +LOSA50TA88 PO; +METF500T4; +MILKSUS; +MONT10TA2 PO; +NYST1POW9 TOP; +NYST50SS SS; +NYSTATIN ORAL; +OMEP40CA2 PO; +PEG1POW PO; +PERC5TAB12 PO; +PERCOCET PO; +PRED20TA; +PRED5TAB; +PRIL20CA; +PROV90AE; +ROCA0.5C PO; +SENN-23 PO; +SENN1TAB10 PO; +SENO8.6T5; +SERT25TA88 PO; +SING10TA31; +SYNT125T; +SYNT175T2 PO; +TOFR50TA; +TRIAMCINOLONE 0.1%; -TRIAMCINOLONE ACETONIDE SUSP 40 MG/ML VIAL (J3301) As Ordered; +VALS80CA; +VICT18IN SC; +VITA50005 PO; +VITAMIN D50000 UNT; +XANA0.5T; +XANA0.5T PO; +ZOLO100T; +ZOLO100T PO; +ZYLO300T6 PO; +[UNRECOGNIZED DRUG - OTHER] PO
--- NOTE | 2018-10-13 15:04 | REPMRS ---
Patient History The patient states she had a clinical breast exam in 06/19 Patient is postmenopausal. Family history of unknown cancer under age 50 in son. Benign excisional biopsy of the left breast. Took unspecified hormones for 2 years. Digital Woman Screen Mammo: October 13, 2018 - Exam #: [id number] Bilateral MLO, CC, and XCCL view(s) were taken. Technologist: Shoshana Gray, Technologist Prior study comparison: June 30, 2017, bilateral digital mammo screening bilat, performed at [facility]. June 29, 2016, bilateral digital mammo screening bilat, performed at [facility]. FINDINGS: There are scattered fibroglandular densities. There has been no change in the appearance of the mammogram from the prior studies. There is a mild amount of residual fibroglandular tissue which is fairly symmetric. There is no interval development of dominant mass, architectural distortion, or clustered microcalcification suggestive of malignancy. There are benign arterial calcifications noted. Scattered lymph nodes are seen in the axillae. There are scattered, small, benign calcifications of doubtful clinical significance. There is a benign appearing intramammary node in the upper outer quadrant of the left breast. 3-D tomosynthesis shows no additional findings. No significant changes when compared with prior studies. Assessment: BI-RADS/ACR category 2 mammogram. Benign Findings. Recommendation Routine screening mammogram in 1 year (for women over age 40). This mammogram was interpreted with the aid of an FDA-approved computer-aided dectection system. A. Negative x-ray reports should not delay biopsy if a dominant or clinically suspicious mass is present. B. Four to eight percent of cancers are not identified by mammography. C. Adenosis and dense breast may obscure an underlying neoplasm. Electronically Signed By: Rohit Sharma MD 10/13/18 1824
== END ==
LOC: M WHC 10:19
PROVIDERS: ATTEND Obstetrics & Gynecology
DX: Z12.31 Encounter for screening mammogram for malignant neoplasm of breast (principal); Z78.0 Asymptomatic menopausal state; R59.0 Localized enlarged lymph nodes; R92.1 Mammographic calcification found on diagnostic imaging of breast; Z92.29 Personal history of other drug therapy; Z86.011 Personal history of benign neoplasm of the brain

== ENCOUNTER → 2018-10-13 | Outpatient (CLI) | payer MEDICARE, MEDICAID ==
--- NOTE | 2018-10-20 13:09 | DEXA ---
AP SPINE L1 - L4 1.391 1.6 3.3 LT RADIUS FOREARM 33% 0.874 -0.2 2.0 LT NECK RT FEMUR TOTAL RT NECK TOTAL BODY TOTAL OTHER COMMENTS: Normal bone densitometry of the spine. There is degenerative change in the spine which may artificially elevate the BMD. Normal bone densitometry of the left forearm The density of the spine is increased 18.0% since 05/24/2001. The increased density of the spine does represent a significant change since 05/24/2001. FOLLOW-UP: Recommendation for the next bone density exam: 5 years. MTDD
== END ==
LOC: M WHC 10:26
PROVIDERS: ATTEND Internal Medicine
DX: Z12.31 Encounter for screening mammogram for malignant neoplasm of breast (principal); Z78.0 Asymptomatic menopausal state; R59.0 Localized enlarged lymph nodes; R92.1 Mammographic calcification found on diagnostic imaging of breast; Z92.29 Personal history of other drug therapy; Z86.011 Personal history of benign neoplasm of the brain; Z13.820 Encounter for screening for osteoporosis

== ENCOUNTER → 2018-10-19 | Outpatient (REF) | payer MEDICARE, MEDICAID ==
[2018-10-19 10:22] LABS: HEMATOCRIT 29.2 % (36.0-47.0); HEMOGLOBIN 9.2 g/dl (12.0-15.5); MEAN CORPUSCULAR HEMOGLOBIN 28.5 pg (27.0-33.0); MEAN CORPUSCULAR HGB CONC 31.5 g/dl (32.0-36.5); MEAN CORPUSCULAR VOLUME 90.4 fl (80.0-96.0); PLATELET COUNT, AUTOMATED 336 10^3/uL (150-450); RED BLOOD COUNT 3.23 10^6/uL (4.00-5.40)
[2018-10-19 10:41] LABS: HEMOGLOBIN A1c 6.9 %
[2018-10-19 10:45] LABS: CREATININE, URINE 50.1 MG/DL; MAU/CREAT RATIO 159.6 MCG/MG (0.0-30.0)
[2018-10-19 10:49] LABS: ALBUMIN 3.3 GM/DL (3.2-5.2); BILIRUBIN,TOTAL 0.3 MG/DL (0.2-1.0); CALCIUM LEVEL 9.1 MG/DL (8.8-10.2); CREATININE FOR GFR 1.39 MG/DL (0.55-1.30); GLOMERULAR FILTRATION RATE 39.5 (>39); TOTAL PROTEIN 6.4 GM/DL (6.4-8.2)
[2018-10-19 10:53] LABS: PTH INTACT 35.3 PG/ML (18.5-88.0)
== END ==
LOC: M SFHCPLAZ 07:49
PROVIDERS: ATTEND Internal Medicine
DX: D64.9 Anemia, unspecified (principal); N18.3 Chronic kidney disease, stage 3 (moderate); E11.21 Type 2 diabetes mellitus with diabetic nephropathy

== ENCOUNTER → 2018-10-27 | Outpatient (CLI) | payer MEDICARE, MEDICAID ==
[~2018-10-27] MED LIST changes: -/ADVA50050; -/GLYB5TA; -/MOXI40TA; -/TIOT18INH; +ADVA1AER2; +AVEL1TAB2; +GLYB1TAB29; +SPIR1CAP
--- NOTE | 2018-11-09 01:59 | ECWPNPC ---
PATIENT NAME: YESICA JAKCSON : 1945 GENDER: FEMALE VISIT DATE: 10/27/2018 DISCHARGE DATE: 10/27/18 1402 VISIT LOCKED DATE TIME: PHYSICIAN: LCUAS LOZANO RESOURCE: LUCAS LOZANO REASON FOR APPOINTMENT 1. BACK HISTORY OF PRESENT ILLNESS HISTORY OF PRESENT ILLNESS: HERE FOR F/U OF CHRONIC LOW BACK PAIN.CHIEF AREA OF PAIN IS RIGHT LOW BACK.RATING PAIN VAS 6/10.HAS RESPONDED WELL TO SIJ INJECTIONS IN PAST. PAIN THE PATIENT DESCRIBES THE PAIN... FALL RISK SCREENING: SCREENING :NO FALLS REPORTED IN THE LAST YEAR CURRENT MEDICATIONS TAKING IMIPRAMINE HCL 25 MG TABLET 1 TABLET ORALLY DAILY TAPERING TO COME OFF OF 10/26/2018 TAKING XANAX 0.5 MG TABLET 1 TABLET ORALLY TWICE A DAY TAKING ZOLOFT 100 MG TABLET 1 AND 1/2 TABLET ORALLY ONCE A DAY WITH 1.5 TABS OF 100MG TO EQUAL 175MG TAKING CICLOPIROX OLAMINE 0.77 % CREAM 1 APPLICATION TO AFFECTED AREA EXTERNALLY TWICE A DAY NEEDED TAKING INCRUSE ELLIPTA 62.5 MCG/INH AEROSOL POWDER BREATH ACTIVATED 1 PUFF INHALATION ONCE A DAY TAKING LANCETS _ MISCELLANEOUS DIRECTED DX: E11.21 FOUR TIMES A DAY TAKING POISE PAD - PAD DIRECTED DX: N39.3 2-3 TIMES A DAY NEEDED TAKING ALBUTEROL SULFATE (2.5 MG/3ML) 0.083% NEBULIZATION SOLUTION 3 ML NEEDED INHALATION EVERY 4 HOURS NEEDED FOR SOB/COUGH/WHEEZE TAKING ADVAIR DISKUS 500-50 MCG/DOSE AEROSOL POWDER BREATH ACTIVATED 1 PUFF INHALATION TWICE A DAY TAKING LIDOCAINE HCL 5 % OINTMENT APPLY TO RIGHT KNEE AND THIGH EXTERNALLY 3-4 TIMES A DAY NEEDED FOR PAIN TAKING CYANOCOBALAMIN 1000 MCG TABLET 1 TABLET ORALLY ONCE A DAY TAKING FERROUS GLUCONATE 324 (38 FE) MG TABLET 1 TABLET ORALLY ONCE A DAY TAKING PEN NEEDLES 10/15" 31G X 5 MM MISCELLANEOUS BD ULTRA FINE SUBCUTANEOUSLY TWICE A DAY DX: E11.9 TAKING COLACE 100 MG CAPSULE 1 CAPSULE ORALLY ONCE A DAY TAKING CALCITRIOL 0.5 MCG CAPSULE 1 CAPSULE ORALLY ONCE A DAY TAKING CLINDAMYCIN HCL 300 MG CAPSULE DIRECTED ORALLY TAKE 1 CAPSULE TWICE A DAY FOR 5 DAYS AND ALSO TAKE 2 CAPS 1 HOUR PRIOR TO DENTAL WORK. TAKING VENTOLIN HFA 108 (90 BASE) MCG/ACT AEROSOL SOLUTION 2 PUFFS INHALATION EVERY 4 HOURS NEEDED FOR SOB, COUGH, WHEEZE TAKING SENNA S 8.6-50 MG TABLET 2 TABLET ORALLY TWICE A DAY TAKING LIPITOR 40 MG TABLET 1 TABLET ORALLY ONCE A DAY TAKING OMEPRAZOLE 40 MG CAPSULE DELAYED RELEASE 1 CAPSULE ORALLY TWICE A DAY TAKING ALLOPURINOL 300 MG TABLET 1 TABLET ORALLY ONCE A DAY TAKING BLOOD GLUCOSE TEST STRIP _ STRIP ONE TOUCH ULTRA 2 IN VITRO, DX: E11.21 FOUR TIMES A DAY TAKING GABAPENTIN 300 MG CAPSULE 1 CAPSULE ORALLY THREE TIMES DAILY TAKING NYSTATIN 295596 UNIT/GM POWDER 1 APPLICATION TO AREA UNDER BREAST EXTERNALLY TWICE A DAY TAKING MAY HAVE - - HAND RAIL BY TOILET _ DAILY. DX: M19.90 TAKING FOLIC ACID 1 MG TABLET 1 TABLET ORALLY ONCE A DAY TAKING LEVOTHYROXINE SODIUM 150 MCG TABLET 1 TABLET ON AN EMPTY STOMACH IN THE MORNING ORALLY ONCE A DAY TAKING SINGULAIR 10 MG TABLET 1 TABLET IN THE EVENING ORALLY ONCE A DAY TAKING LOSARTAN POTASSIUM 50 MG TABLET 1 TABLET ORALLY ONCE A DAY TAKING LASIX 40 MG TABLET 1 TAB ORALLY TWICE DAILY TAKING CLOTRIMAZOLE 10 MG LOZENGE 1 CLINT MOUTH/THROAT FIVE TIMES A DAY TAKING GLIPIZIDE-METFORMIN HCL 5-500 MG TABLET 1 TABLET WITH A MEAL ORALLY TWICE A DAY TAKING VICTOZA 18 MG/3ML SOLUTION PEN-INJECTOR 1.8MG SUBCUTANEOUS ONCE A DAY TAKING LEVEMIR FLEXTOUCH 100 UNIT/ML SOLUTION PEN-INJECTOR 18 UNITS SUBCUTANEOUS DAILY--TAKE IN THE AM NOT-TAKING POLYETHYLENE GLYCOL 3350 POWDER 1 PACKET ORALLY ONCE A DAY PRN CONSTIPATION MEDICATION LIST REVIEWED AND RECONCILED WITH THE PATIENT PAST MEDICAL HISTORY CONTROLLED 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 CHRONIC KIDNEY DISEASE, STAGE 3 (MODERATE) HYPOTHYROIDISM, UNSPECIFIED HYPERCHOLESTEROLEMIA ANEMIA IN OTHER CHRONIC DISEASES CLASSIFIED ELSEWHERE CHRONIC OBSTRUCTIVE PULMONARY DISEASE, UNSPECIFIED OTHER DIABETIC NEUROLOGICAL COMPLICATION ASSOCIATED WITH TYPE 2 DIABETES MELLITUS LOCALIZED EDEMA GASTRO-ESOPHAGEAL REFLUX DISEASE WITHOUT ESOPHAGITIS SLEEP APNEA, UNSPECIFIED DYSTHYMIC DISORDER GOUT, UNSPECIFIED VITAMIN D DEFICIENCY, UNSPECIFIED ESOPHAGEAL OBSTRUCTION GASTROPARESIS PSEUDOGOUT PRIMARY OSTEOARTHRITIS, RIGHT HAND B12 DEFICIENCY PRIMARY OSTEOARTHRITIS OF LEFT HAND RIGHT LUMBAR RADICULOPATHY ALLERGIES ACTOS: CHF - ALLERGY PENICILLIN (FOR ALLERGIES USE ONLY): RASH - ALLERGY BYETTA 10 MCG PEN: VERY SICK - ALLERGY TRAMADOL: ITCH - ALLERGY SULFA (FOR ALLERGY USE ONLY): ITCH - ALLERGY SURGICAL HISTORY BILATERAL HIP OPERATIONS ON SIX DIFFERENT OCCASIONS, INITIALLY STARTING AT AGE 10 WHEN SHE HAD SLIPPED CAPITAL FEMORAL EPIPHYSES AGE 10 TUBAL LIGATION IN THE 1969'S 06/22/1972 LEFT KNEE REPLACED 2000? C-SPINE DISCECTOMY AND DONOR GRAFT AT C5 2001 HYSTERECTOMY WITH BLADDER REPAIR FOR VAGINAL BLEEDING 2003 HERNIA REPAIR, REPAIR OF THREE DIFFERENT ABDOMINAL HERNIAS RIGHT CARPAL TUNNEL SURGERY AND RIGHT ULNAR NERVE TRANSPOSITION 2004 COLONOSCOPY 2008 LEFT NIPPLE BREAST BIOPSY 2008 COLONOSCOPY 2009 COLONOSCOPY 2012 LEFT SHOULDER REPLACEMENT 10/27/2013 LAPAROSCOPIC CHOLECYSTECTOMY 07/21/2016 BILATERAL CATARACT SURGERY-DR. GAMBOA 06/09 AND 06/16/2017 UPPER ENDOSCOPY WITH ESOPHAGEAL DILATION 10/2017 FAMILY HISTORY FATHER: 70 YRS MOTHER: 83 YRS FATHER OF CVA\\\\NMOTHER OF COMPLICATIONS OF DIABETES\\\\N4 SIBLINGS, AT LEAST 2 ARE DIABETIC. SOCIAL HISTORY GENERAL: TOBACCO USE ARE YOU A:FORMER SMOKER HOW LONG HAS IT BEEN SINCE YOU LAST SMOKED?> 10 YEARS LATEX QUESTIONNAIRE LATEX ALLERGY : HAVE YOU EVER DEVELOPED ANY TYPE OF REACTION AFTER HANDLING LATEX PRODUCTS SUCH RUBBER GLOVES, CONDOMS, DIAPHRAGMS, BALLOONS, SOCKS, OR UNDERWEAR?NO LATEX ALLERGY : HAVE YOU EVER DEVELOPED ANY TYPE OF REACTION DURING OR AFTER DENTAL APPOINTMENT, VAGINAL/RECTAL EXAMINATION, SURGICAL PROCEDURE, OR ANY OTHER EXPOSURE?NO LATEX RISK : HAVE YOU EVER HAD ANY DIFFICULTY BREATHING OR HIVES AFTER EATING OR HANDLING ANY FRUITS, OR VEGETABLES; SUCH KIWI, BANANAS, STONE FRUITS, OR CHESTNUTSNO LATEX RISK : DO YOU HAVE A PREVIOUS PERSONAL HISTORY OF MORE THAN NINE SURGERIES, SPINA BIFIDA, OR REPEATED CATHERTIZATIONS? NO LATEX RISK : ARE YOU FREQUENTLY EXPOSED TO LATEX PRODUCTS IN YOUR OCCUPATION?NO DATE ASKED : 10/27/2018 BMI CARE GOAL FOLLOW-UP ABOVE NORMAL BMI FOLLOW-UPDIETARY MANAGEMENT EDUCATION, GUIDANCE, AND COUNSELING ALCOHOL SCREENING DID YOU HAVE A DRINK CONTAINING ALCOHOL IN THE PAST YEAR?NO POINTS0 INTERPRETATIONNEGATIVE RECREATIONAL DRUG USE DRUG USE?NO CAFFEINE CAFFEINE USE?YES HOW OFTEN AND HOW MUCH? 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 DIET: REGULAR. EXERCISE: NO REGULAR EXERCISE. MARITAL STATUS: WITH 4 CHILDREN. PAIN CLINIC PFS, CLERGY, PUBLIC HEALTH REFERRALS WAS THE PROVIDER NOTIFIED OF ANY PERTINENT INFO?YES HAS THE PATIENT BEEN EDUCATED REGARDING HIS/HER PLAN OF CARE?YES HAS THE PATIENT BEEN EDUCATED REGARDING PAIN, THE RISK FOR PAIN, THE IMPORTANCE OF EFFECTIVE PAIN MANAGEMENT, AND THE PAIN ASSESSMENT PROCESS?YES HOUSING: RENTS APARTMENT. ADVANCE DIRECTIVE ADVANCE DIRECTIVE DISCUSSED WITH PATIENT:YES SPOUSE - LUIS JACKSON - [phone], SON - MAGUI JACKSON REVIEWED WITH PT -5-18 BV. HOSPITALIZATION/MAJOR DIAGNOSTIC PROCEDURE PANCREATITIS 12/12/2015 [facility] ER- CHOLECYSTITIS-CHRONIC 06/01/2016 CARE IN [place]-URI 07/2017 [facility] HOSPITAL-RIGHT LUMBAR RADICULOPATHY 02/26-03/02/2018 REVIEW OF SYSTEMS REVIEWED BY: PROVIDER: LUCAS BILLINGSLEY . CONSTITUTIONAL: ANY CHANGE IN YOUR MEDICAL CONDITION? NO . CHILLS NO . FEVER NO . INFECTION: DO YOU HAVE NEW INFECTIONS? NO . DO YOU HAVE HISTORY OF MRSA? NO . MUSCULOSKELETAL: ANY NEW PATTERNS OF PAIN OR NUMBNESS? NO . GASTROENTEROLOGY: ANY NEW CHANGE IN BOWEL CONTROL? NO . GENITOURINARY: ANY NEW CHANGE IN BLADDER CONTROL? NO . IS THERE A CHANCE YOU COULD BE ? NO . HEMATOLOGY/LYMPH: DO YOU TAKE ANY BLOOD THINNERS? (FOR EXAMPLE- COUMADIN, PLAVIX, AGGRENOX, PLATEL, PRADAXA, OR XARELTO) NO . WHEN WAS YOUR LAST DOSE? DATE: TIME: . NEUROLOGY: HAVE YOU FALLEN IN THE PAST 12 MONTHS? NO . ANY NEW EXTREMITY NUMBNESS OR WEAKNESS? NO . CARDIOLOGY: DO YOU HAVE A PACEMAKER OR DEFIBRILLATOR? NO . RESPIRATORY: HAVE YOU BEEN SICK IN THE PAST WEEK? NO . FEVER NO . FLU LIKE SYMPTOMS? NO . COUGH NO . INTEGUMENTARY: DO YOU HAVE ANY RASHES OR OPEN SORES? NO . ALLERGIC/IMMUNO: ARE YOU ALLERGIC TO IV DYE? NO . ANY NEW ALLERGIES? NO . PSYCHIATRIC: DO YOU HAVE THOUGHTS OF HURTING YOURSELF OR SOMEONE ELSE? NO . ARE YOU ABUSED, NEGLECTED, OR IN AN UNSAFE ENVIRONMENT? NO . ENDOCRINOLOGY: ARE YOU DIABETIC? YES, HBA1C 6.4 10/26/18 . OTHER: DO YOU NEED ANY PRESCRIPTIONS? NO . IF YES, PLEASE LIST: ____ . ANY NEW PROBLEMS WITH YOUR MEDICATIONS? NO . WHEN DID YOU LAST EAT? ____ . WHEN DID YOU LAST DRINK? ____ . WHAT DID YOU LAST DRINK? ____ . NAME OF PERSON DRIVING YOU HOME? ____ . DO YOU HAVE ANY OTHER QUESTIONS OR CONCERNS NO . VITAL SIGNS WT 216 LBS, HT 62 IN, BMI 39.50 INDEX, BP 117/59 MM HG, HR 100 /MIN, RR 18 /MIN, TEMP 95.1 F, OXYGEN SAT % 95%, SAFE IN ENV? (Y/N) Y, NA INITIALS AW 1314, REVIEWED BY: MARIAM. EXAMINATION GENERAL EXAMINATION: GENERAL APPEARANCE: ALERT,NO DISTRESS . PSYCH AFFECT NORMAL . LUNGS: LUNG SOUNDS ARE CLEAR . HEART: HEART RATE REGULAR . MUSCULOSKELETAL: MST 5/5 BILAT. LOWER EXTREMITIES . LUMBAR SACRAL SPINE TENDERNESS OVER RIGHT SIJ . DIAGNOSTIC TESTS REVIEWED CT L/S [id number] . 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 PROCEDURE CODES FA211 ESTABILISHED PATIENT [facility] CHARGE DISPOSITION & COMMUNICATION FOLLOW UP POST (REASON: RIGHT SIJ) ELECTRONICALLY SIGNED BY ANALILIA APONTE ON 11/07/2018 AT 02:36 PM EDT DISCLAIMER : THIS IS A VISIT SUMMARY EXTRACTED FROM THE [employer] CHART. IT IS NOT A COPY OF THE [employer] PROGRESS NOTE. MATHEW
== END ==
LOC: M PAIN 13:15
PROVIDERS: ATTEND Nurse Practitioner Family
DX: M46.1 Sacroiliitis, not elsewhere classified (principal); E11.21 Type 2 diabetes mellitus with diabetic nephropathy; E11.22 Type 2 diabetes mellitus with diabetic chronic kidney disease; N18.3 Chronic kidney disease, stage 3 (moderate); E03.9 Hypothyroidism, unspecified; E78.00 Pure hypercholesterolemia, unspecified; D63.8 Anemia in other chronic diseases classified elsewhere; J44.9 Chronic obstructive pulmonary disease, unspecified; E11.43 Type 2 diabetes mellitus with diabetic autonomic (poly)neuropathy; K21.9 Gastro-esophageal reflux disease without esophagitis; R60.0 Localized edema; G47.30 Sleep apnea, unspecified; F34.1 Dysthymic disorder; E55.9 Vitamin D deficiency, unspecified; K31.84 Gastroparesis; M19.041 Primary osteoarthritis, right hand; M19.042 Primary osteoarthritis, left hand; E53.8 Deficiency of other specified B group vitamins; Z96.652 Presence of left artificial knee joint; Z90.710 Acquired absence of both cervix and uterus; Z98.41 Cataract extraction status, right eye; Z98.42 Cataract extraction status, left eye; Z79.4 Long term (current) use of insulin; Z79.899 Other long term (current) drug therapy; Z87.891 Personal history of nicotine dependence; Z88.0 Allergy status to penicillin; Z88.2 Allergy status to sulfonamides; Z88.8 Allergy status to other drugs, medicaments and biological substances; Z88.5 Allergy status to narcotic agent

== ENCOUNTER → 2018-11-30 | Outpatient (CLI) | payer MEDICARE, MEDICAID ==
[~2018-11-30] MED LIST changes: +BUPIVACAINE HCL 0.25% 30 ML VIAL As Ordered ONE; +ISOVUE-M 300 61% 15ML VIAL (Q9967) As Ordered ONE; +LIDOCAINE 1% SDV INJ 30 ML VIAL As Ordered ONE; +TRIAMCINOLONE ACETONIDE SUSP 40 MG/ML VIAL (J3301) As Ordered ONE
--- NOTE | 2018-12-02 11:05 | REP ---
Fluoro guidance Images were reviewed with Dr. Baker. The portable C-arm was provided in the OR for Dr. Caden Donald for fluoroscopic guidance. Three intraoperative last image hold fluoro spot films were obtained for needle placement verification for right SI joint injection. The films are on the PACS system and are available for review. 19 seconds of fluoroscopy time was utilized for this procedure. Reviewed by ADRIANA Hill 11/30/2018 04:44 P Electronically Signed by Fahad Baker MD 12/02/2018 10:57 A
--- NOTE | 2018-12-18 23:38 | ECWPNPC ---
PATIENT NAME: YESICA JACKSON : 1945 GENDER: FEMALE VISIT DATE: 11/30/2018 DISCHARGE DATE: 11/30/18 1442 VISIT LOCKED DATE TIME: PHYSICIAN: DEAN DODSON MD RESOURCE: DEAN DODSON MD REASON FOR APPOINTMENT 1. RIGHT SIJ HISTORY OF PRESENT ILLNESS HISTORY OF PRESENT ILLNESS: PAIN THE PATIENT DESCRIBES THE PAIN... FALL RISK SCREENING: SCREENING :NO FALLS REPORTED IN THE LAST YEAR CURRENT MEDICATIONS TAKING XANAX 0.5 MG TABLET 1 TABLET ORALLY TWICE A DAY, NOTES: 11/30/18899 TAKING ZOLOFT 100 MG TABLET 1 AND 1/2 TABLET ORALLY ONCE A DAY WITH 1.5 TABS OF 100MG TO EQUAL 175MG, NOTES: 11/30/18899 TAKING CICLOPIROX OLAMINE 0.77 % CREAM 1 APPLICATION TO AFFECTED AREA EXTERNALLY TWICE A DAY NEEDED, NOTES: 11/30/18699 TAKING LANCETS _ MISCELLANEOUS DIRECTED DX: E11.21 FOUR TIMES A DAY TAKING POISE PAD - PAD DIRECTED DX: N39.3 2-3 TIMES A DAY NEEDED TAKING LIDOCAINE HCL 5 % OINTMENT APPLY TO RIGHT KNEE AND THIGH EXTERNALLY 3-4 TIMES A DAY NEEDED FOR PAIN, NOTES: > 4 MONTHS TAKING CYANOCOBALAMIN 1000 MCG TABLET 1 TABLET ORALLY ONCE A DAY, NOTES: 11/30/18899 TAKING FERROUS GLUCONATE 324 (38 FE) MG TABLET 1 TABLET ORALLY ONCE A DAY, NOTES: 11/30/18899 TAKING PEN NEEDLES 3/16" 31G X 5 MM MISCELLANEOUS BD ULTRA FINE SUBCUTANEOUSLY TWICE A DAY DX: E11.9 TAKING COLACE 100 MG CAPSULE 1 CAPSULE ORALLY ONCE A DAY, NOTES: 11/30/18899 TAKING CALCITRIOL 0.5 MCG CAPSULE 1 CAPSULE ORALLY ONCE A DAY, NOTES: 11/30/18899 TAKING VENTOLIN HFA 108 (90 BASE) MCG/ACT AEROSOL SOLUTION 2 PUFFS INHALATION EVERY 4 HOURS NEEDED FOR SOB, COUGH, WHEEZE, NOTES: > 1 WEEK TAKING SENNA S 8.6-50 MG TABLET 2 TABLET ORALLY TWICE A DAY, NOTES: 11/30/18899 TAKING LIPITOR 40 MG TABLET 1 TABLET ORALLY ONCE A DAY, NOTES: 11/29/18 2100 TAKING OMEPRAZOLE 40 MG CAPSULE DELAYED RELEASE 1 CAPSULE ORALLY TWICE A DAY, NOTES: 11/30/18899 TAKING ALLOPURINOL 300 MG TABLET 1 TABLET ORALLY ONCE A DAY, NOTES: 11/26/18899 TAKING BLOOD GLUCOSE TEST STRIP _ STRIP ONE TOUCH ULTRA 2 IN VITRO, DX: E11.21 FOUR TIMES A DAY TAKING GABAPENTIN 300 MG CAPSULE 1 CAPSULE ORALLY THREE TIMES DAILY, NOTES: 11/30/18899 TAKING NYSTATIN 800808 UNIT/GM POWDER 1 APPLICATION TO AREA UNDER BREAST EXTERNALLY TWICE A DAY, NOTES: 11/30/18799 TAKING MAY HAVE - - HAND RAIL BY TOILET _ DAILY. DX: M19.90 TAKING FOLIC ACID 1 MG TABLET 1 TABLET ORALLY ONCE A DAY, NOTES: 11/29/181699 TAKING LEVOTHYROXINE SODIUM 150 MCG TABLET 1 TABLET ON AN EMPTY STOMACH IN THE MORNING ORALLY ONCE A DAY, NOTES: 11/29/181699 TAKING SINGULAIR 10 MG TABLET 1 TABLET IN THE EVENING ORALLY ONCE A DAY, NOTES: 11/30/18899 TAKING LOSARTAN POTASSIUM 50 MG TABLET 1 TABLET ORALLY ONCE A DAY, NOTES: 11/30/18899 TAKING LASIX 40 MG TABLET 1 TAB ORALLY TWICE DAILY, NOTES: 11/30/18899 TAKING CLOTRIMAZOLE 10 MG LOZENGE 1 CLINT MOUTH/THROAT FIVE TIMES A DAY, NOTES: > 1 MONTH TAKING GLIPIZIDE-METFORMIN HCL 5-500 MG TABLET 1 TABLET WITH A MEAL ORALLY TWICE A DAY, NOTES: 11/29/181699 TAKING VICTOZA 18 MG/3ML SOLUTION PEN-INJECTOR 1.8MG SUBCUTANEOUS ONCE A DAY, NOTES: 11/29/182099 TAKING LEVEMIR FLEXTOUCH 100 UNIT/ML SOLUTION PEN-INJECTOR 18 UNITS SUBCUTANEOUS DAILY--TAKE IN THE AM, NOTES: 11/29/18799 TAKING DOXYCYCLINE MONOHYDRATE 100 MG CAPSULE 1 CAPSULE ORALLY EVERY 12 HRS TAKING INCRUSE ELLIPTA 62.5 MCG/INH AEROSOL POWDER BREATH ACTIVATED 1 PUFF INHALATION ONCE A DAY, NOTES: 11/30/18799 TAKING ALBUTEROL SULFATE (2.5 MG/3ML) 0.083% NEBULIZATION SOLUTION 3 ML NEEDED INHALATION EVERY 4 HOURS NEEDED FOR SOB/COUGH/WHEEZE, NOTES: > 4 MONTHS AGO TAKING ADVAIR DISKUS 500-50 MCG/DOSE AEROSOL POWDER BREATH ACTIVATED 1 PUFF INHALATION TWICE A DAY, NOTES: 5/1/19 0800 TAKING BUSPIRONE HCL 10 MG TABLET 1 TABLET ORALLY TWICE A DAY, NOTES: 11/29/18 2100 NOT-TAKING CLINDAMYCIN HCL 300 MG CAPSULE DIRECTED ORALLY TAKE 1 CAPSULE TWICE A DAY FOR 5 DAYS AND ALSO TAKE 2 CAPS 1 HOUR PRIOR TO DENTAL WORK. 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 CHRONIC KIDNEY DISEASE, STAGE 3 (MODERATE) HYPOTHYROIDISM, UNSPECIFIED HYPERCHOLESTEROLEMIA ANEMIA IN OTHER CHRONIC DISEASES CLASSIFIED ELSEWHERE CHRONIC OBSTRUCTIVE PULMONARY DISEASE, UNSPECIFIED OTHER DIABETIC NEUROLOGICAL COMPLICATION ASSOCIATED WITH TYPE 2 DIABETES MELLITUS LOCALIZED EDEMA GASTRO-ESOPHAGEAL REFLUX DISEASE WITHOUT ESOPHAGITIS SLEEP APNEA, UNSPECIFIED DYSTHYMIC DISORDER GOUT, UNSPECIFIED VITAMIN D DEFICIENCY, UNSPECIFIED ESOPHAGEAL OBSTRUCTION GASTROPARESIS PSEUDOGOUT PRIMARY OSTEOARTHRITIS, RIGHT HAND B12 DEFICIENCY PRIMARY OSTEOARTHRITIS OF LEFT HAND RIGHT LUMBAR RADICULOPATHY ALLERGIES ACTOS: CHF - ALLERGY PENICILLIN (FOR ALLERGIES USE ONLY): RASH - ALLERGY BYETTA 10 MCG PEN: VERY SICK - ALLERGY TRAMADOL: ITCH - ALLERGY SULFA (FOR ALLERGY USE ONLY): ITCH - ALLERGY SURGICAL HISTORY BILATERAL HIP OPERATIONS ON SIX DIFFERENT OCCASIONS, INITIALLY STARTING AT AGE 10 WHEN SHE HAD SLIPPED CAPITAL FEMORAL EPIPHYSES AGE 10 TUBAL LIGATION IN THE 1969'S 06/22/1972 LEFT KNEE REPLACED 2000? C-SPINE DISCECTOMY AND DONOR GRAFT AT C5 2001 HYSTERECTOMY WITH BLADDER REPAIR FOR VAGINAL BLEEDING 2004 HERNIA REPAIR, REPAIR OF THREE DIFFERENT ABDOMINAL HERNIAS RIGHT CARPAL TUNNEL SURGERY AND RIGHT ULNAR NERVE TRANSPOSITION 2004 COLONOSCOPY 2008 LEFT NIPPLE BREAST BIOPSY 2008 COLONOSCOPY 2009 COLONOSCOPY 2012 LEFT SHOULDER REPLACEMENT 10/27/2013 LAPAROSCOPIC CHOLECYSTECTOMY 07/21/2016 BILATERAL CATARACT SURGERY-DR. GAMBOA 06/09 AND 06/16/2017 UPPER ENDOSCOPY WITH ESOPHAGEAL DILATION 10/2017 FAMILY HISTORY FATHER: 70 YRS MOTHER: 83 YRS FATHER OF CVA\\\\\\\\\\\\\\\\NMOTHER OF COMPLICATIONS OF DIABETES\\\\\\\\\\\\\\\\N4 SIBLINGS, AT LEAST 2 ARE DIABETIC. SOCIAL HISTORY GENERAL: TOBACCO USE ARE YOU A:FORMER SMOKER HOW LONG HAS IT BEEN SINCE YOU LAST SMOKED?> 10 YEARS HIV / HEP-C SCREENING HIV TEST OFFERED TO PATIENT:YES DATE OFFERED:11/01/2017 TEST ACCEPTED:NO HEP-C TEST OFFERED TO PATIENT:YES DATE OFFERED:11/01/2017 REASON:PATIENT DECLINED TEST ACCEPTED:NO REASON:PATIENT DECLINED BROCHURE PROVIDED TO PATIENTYES HOUSING: RENTS APARTMENT. EDUCATION LEVEL OF EDUCATION:FINISHED HIGH SCHOOL DIET: REGULAR. LANGUAGE LANGUAGES SPOKEN:[place]HAL[place] DOMESTIC VIOLENCE DO YOU FEEL SAFE IN YOUR ENVIRONMENT?YES BMI CARE GOAL FOLLOW-UP ABOVE NORMAL BMI FOLLOW-UPDIETARY MANAGEMENT EDUCATION, GUIDANCE, AND COUNSELING RECREATIONAL DRUG USE DRUG USE?NO EXERCISE: NO REGULAR EXERCISE. 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 NEEDED?NO PAIN CLINIC PFS, CLERGY, PUBLIC HEALTH REFERRALS WAS THE PROVIDER NOTIFIED OF ANY PERTINENT INFO?YES HAS THE PATIENT BEEN EDUCATED REGARDING HIS/HER PLAN OF CARE?YES HAS THE PATIENT BEEN EDUCATED REGARDING PAIN, THE RISK FOR PAIN, THE IMPORTANCE OF EFFECTIVE PAIN MANAGEMENT, AND THE PAIN ASSESSMENT PROCESS?YES LATEX QUESTIONNAIRE LATEX ALLERGY : HAVE YOU EVER DEVELOPED ANY TYPE OF REACTION AFTER HANDLING LATEX PRODUCTS SUCH RUBBER GLOVES, CONDOMS, DIAPHRAGMS, BALLOONS, SOCKS, OR UNDERWEAR?NO LATEX ALLERGY : HAVE YOU EVER DEVELOPED ANY TYPE OF REACTION DURING OR AFTER DENTAL APPOINTMENT, VAGINAL/RECTAL EXAMINATION, SURGICAL PROCEDURE, OR ANY OTHER EXPOSURE?NO LATEX RISK : HAVE YOU EVER HAD ANY DIFFICULTY BREATHING OR HIVES AFTER EATING OR HANDLING ANY FRUITS, OR VEGETABLES; SUCH KIWI, BANANAS, STONE FRUITS, OR CHESTNUTSNO LATEX RISK : DO YOU HAVE A PREVIOUS PERSONAL HISTORY OF MORE THAN NINE SURGERIES, SPINA BIFIDA, OR REPEATED CATHERTIZATIONS? YES - PLEASE INDICATE : > 9 SURGERIES LATEX RISK : ARE YOU FREQUENTLY EXPOSED TO LATEX PRODUCTS IN YOUR OCCUPATION?NO DATE ASKED : 10/27/2018 CAFFEINE CAFFEINE USE?YES HOW OFTEN AND HOW MUCH? COFFEE ADVANCE DIRECTIVE ADVANCE DIRECTIVE DISCUSSED WITH PATIENT:YES SPOUSE - LUIS JACKSON - [phone], SON - MAGUI JACKSON MORAVIAN MORAVIAN NO SAMARITAN BELIEFS THAT WOULD IMPACT HEALTH CARE. MARITAL STATUS: WITH 4 CHILDREN. 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 SEXUAL HX HAD SEX IN THE LAST 12 MONTHS (VAGINAL, ORAL, OR ANAL)?NO HAVE YOU EVER HAD AN STD?NO REVIEWED WITH PT -5-18 BVREVIEWED WITH PT 11/30/18 1315 LAS. HOSPITALIZATION/MAJOR DIAGNOSTIC PROCEDURE PANCREATITIS 12/12/2015 [facility] ER- CHOLECYSTITIS-CHRONIC 06/01/2016 [facility] [place]-[facility] 07/2017 [facility] HOSPITAL-RIGHT LUMBAR RADICULOPATHY 02/26-03/02/2018 REVIEW OF SYSTEMS REVIEWED BY: PROVIDER: . CONSTITUTIONAL: ANY CHANGE IN YOUR MEDICAL CONDITION? NO . CHILLS NO . FEVER NO . INFECTION: DO YOU HAVE NEW INFECTIONS? NO . DO YOU HAVE HISTORY OF MRSA? NO . MUSCULOSKELETAL: ANY NEW PATTERNS OF PAIN OR NUMBNESS? NO . GASTROENTEROLOGY: ANY NEW CHANGE IN BOWEL CONTROL? NO . GENITOURINARY: ANY NEW CHANGE IN BLADDER CONTROL? NO . IS THERE A CHANCE YOU COULD BE ? NO . HEMATOLOGY/LYMPH: DO YOU TAKE ANY BLOOD THINNERS? (FOR EXAMPLE- COUMADIN, PLAVIX, AGGRENOX, PLATEL, PRADAXA, OR XARELTO) NO . WHEN WAS YOUR LAST DOSE? DATE: TIME: . NEUROLOGY: HAVE YOU FALLEN IN THE PAST 12 MONTHS? NO . ANY NEW EXTREMITY NUMBNESS OR WEAKNESS? NO . CARDIOLOGY: DO YOU HAVE A PACEMAKER OR DEFIBRILLATOR? NO . RESPIRATORY: HAVE YOU BEEN SICK IN THE PAST WEEK? NO . FEVER NO . FLU LIKE SYMPTOMS? NO . COUGH NO . INTEGUMENTARY: DO YOU HAVE ANY RASHES OR OPEN SORES? NO . ALLERGIC/IMMUNO: ARE YOU ALLERGIC TO IV DYE? NO . ANY NEW ALLERGIES? NO . PSYCHIATRIC: DO YOU HAVE THOUGHTS OF HURTING YOURSELF OR SOMEONE ELSE? NO . ARE YOU ABUSED, NEGLECTED, OR IN AN UNSAFE ENVIRONMENT? NO . ENDOCRINOLOGY: ARE YOU DIABETIC? YES . OTHER: DO YOU NEED ANY PRESCRIPTIONS? NO . IF YES, PLEASE LIST: ____ . ANY NEW PROBLEMS WITH YOUR MEDICATIONS? NO . WHEN DID YOU LAST EAT? ____11/29/18 1900 . WHEN DID YOU LAST DRINK? ____11/30/18 0900 . WHAT DID YOU LAST DRINK? ____WATER . NAME OF PERSON DRIVING YOU HOME? CHARLES____ . DO YOU HAVE ANY OTHER QUESTIONS OR CONCERNS NO . VITAL SIGNS WT 218 LBS, HT 62 IN, BMI 39.87 INDEX, BP 143/67 MM HG, HR 98 /MIN, RR 18 /MIN, TEMP 96.5 F, OXYGEN SAT % 95%, BLOOD GLUCOSE LEVEL FINGERSTICK 165 PER PT, SAFE IN ENV? (Y/N) YES, NA INITIALS AW 1203, REVIEWED BY: LAS. EDEN SACROILIITIS, NOT ELSEWHERE CLASSIFIED - M46.1 (PRIMARY) PROCEDURES PN SI PRE PROCEDURE DIAGNOSIS SACROILIITIS, SACROILIAC JOINT DYSFUNCTION POST PROCEDURE DIAGNOSIS SACROILIITIS, SACROILIAC JOINT DYSFUNCTION PROCEDURE RIGHT SACROILIAC JOINT BLOCK SURGEON DR. DEAN DODSON ROLLS MILL OPERATOR NONE ANESTHESIA LOCAL PRE PROCEDURE NOTE PATIENT WITH HISTORY OF CHRONIC LOW BACK PAIN. I EVALUATED THE PATIENT AND REVIEWED THE CHART. I WENT OVER THE RISKS, ALTERNATIVES, AND BENEFITS ASSOCIATED WITH THIS PROCEDURE. THE PATIENT WOULD LIKE TO PROCEED AND GAVE CONSENT TO PERFORM THE PROCEDURE. THE PATIENT DENIES UNEXPLAINABLE WEIGHT LOSS, FEVER, CHILLS, OR NEW CHANGES IN URINARY OR BOWEL CONTROL DESCRIPTION OF PROCEDURE THE PATIENT WAS BROUGHT TO THE PROCEDURE ROOM AND PLACED IN THE PRONE POSITION. THE LUMBOSACRAL AREA WAS CLEANED WITH CHLORAPREP SOLUTION AND DRAPED ASEPTICALLY. THE PROCEDURE WAS DONE UNDER STERILE CONDITIONS. I CHECKED LATERALITY AND THE LEVEL WHERE THE PROCEDURE WAS GOING TO BE PERFORMED WITH THE PATIENT AND THE SUPPORTING STAFF AT THE MOMENT OF THE TIME OUT IN THE PROCEDURE ROOM. UNDER FLUOROSCOPIC GUIDANCE, TARGET POINT WAS SELECTED AT THE LOWER BORDER OF THE RIGHT SACROILIAC JOINT. TARGET POINT WAS SELECTED AFTER MEDIAL ROTATION AND TILT OF THE MAGNIFIER OF THE C-ARM. LIDOCAINE WAS USED TO NUMB THE SKIN AND SUBCUTANEOUS TISSUE BELOW IT. A SPINAL NEEDLE, 22-GAUGE, WAS ADVANCED UNDER FLUOROSCOPIC GUIDANCE AND FOLLOWING PATIENT FEEDBACK UNTIL THE TARGET AREA WAS TOUCHED. THE POSITION OF THE NEEDLE WAS VERIFIED WITH AP AND LATERAL VIEWS. AFTER PROPER POSITION OF THE NEEDLE WAS ACHIEVED, ISOVUE M DYE 30%, 0.25 ML, WAS INJECTED SHOWING SPREAD OF THE DYE. THEN, A SOLUTION OF 20 MG OF KENALOG WAS INJECTED IN RIGHT JOINT WITH 3 ML OF BUPIVACAINE 0.125%. THERE WAS NO EVIDENCE OF BLOOD, PARESTHESIA OR CEREBROSPINAL FLUID DURING THE PROCEDURE. THE PATIENT WAS SENT TO THE RECOVERY ROOM. THE PATIENT WAS MOVING THE EXTREMITIES AND DOING WELL. THERE WAS NO COMPLICATION DURING THE PROCEDURE. FLUOROSCOPY TIME WAS 19 SECONDS POST PROCEDURE NOTE THE PATIENT WILL BE SEEN IN A FOLLOW UP IN THE NEXT FEW WEEKS. INSTRUCTIONS WERE GIVEN, QUESTIONS WERE ANSWERED, AND THE PATIENT EXPRESSED UNDERSTANDING AND AGREED WITH THE PLAN. I, KIT PEREZ, DOCUMENTED THE ABOVE INFORMATION ACTING A SCRIBE FOR DR. DODSON. I HAVE REVIEWED THE ABOVE DOCUMENT, WRITTEN BY KIT KAPOORIBQuique AND I VERIFY THAT IT IS ACCURATE. DIAGNOSTIC IMAGING [facility] FLUORO GUIDANCE (PAIN)[id number] PROCEDURE CODES 50007 INJECT SACROILIAC JOINT, MODIFIERS: RT 6045F RADXPS IN END [id number] PXD DISPOSITION & COMMUNICATION FOLLOW UP 3 WEEKS ELECTRONICALLY SIGNED BY DEAN DODSON MD, MD ON 12/18/2018 AT 07:20 PM EDT DISCLAIMER : THIS IS A VISIT SUMMARY EXTRACTED FROM THE [employer] CHART. IT IS NOT A COPY OF THE [employer] PROGRESS NOTE. MTDD
== END ==
LOC: M PAIN 11:45
PROVIDERS: ATTEND Anesthesiology
DX: G89.29 Other chronic pain (principal); M46.1 Sacroiliitis, not elsewhere classified; M53.88 Other specified dorsopathies, sacral and sacrococcygeal region; E11.21 Type 2 diabetes mellitus with diabetic nephropathy; E11.22 Type 2 diabetes mellitus with diabetic chronic kidney disease; N18.3 Chronic kidney disease, stage 3 (moderate); E03.9 Hypothyroidism, unspecified; E78.00 Pure hypercholesterolemia, unspecified; D63.8 Anemia in other chronic diseases classified elsewhere; K21.9 Gastro-esophageal reflux disease without esophagitis; G47.30 Sleep apnea, unspecified; E55.9 Vitamin D deficiency, unspecified; K31.84 Gastroparesis; M19.041 Primary osteoarthritis, right hand; M19.042 Primary osteoarthritis, left hand; Z79.899 Other long term (current) drug therapy; Z88.0 Allergy status to penicillin; Z88.2 Allergy status to sulfonamides; Z88.5 Allergy status to narcotic agent; Z88.8 Allergy status to other drugs, medicaments and biological substances; Z87.891 Personal history of nicotine dependence; Z87.39 Personal history of other diseases of the musculoskeletal system and connective tissue; Z96.652 Presence of left artificial knee joint; Z96.612 Presence of left artificial shoulder joint
CPT/HCPCS: G0260; J3301; Q9967

== ENCOUNTER → 2018-12-02 | Outpatient (CLI) | payer MEDICARE, MEDICAID ==
[~2018-12-02] MED LIST changes: -BUPIVACAINE HCL 0.25% 30 ML VIAL As Ordered ONE; -ISOVUE-M 300 61% 15ML VIAL (Q9967) As Ordered ONE; -LIDOCAINE 1% SDV INJ 30 ML VIAL As Ordered ONE; -TRIAMCINOLONE ACETONIDE SUSP 40 MG/ML VIAL (J3301) As Ordered ONE
--- NOTE | 2018-12-02 19:53 | REP ---
BILATERAL LOWER EXTREMITY DUPLEX DOPPLER ARTERIAL ULTRASOUND: Real-time ultrasound evaluation and duplex Doppler interrogation of the bilateral lower extremity arterial systems is performed. HUANG right is 1.14 and left 1.15. Mild to moderate plaquing and narrowing is seen diffusely bilaterally. Biphasic and triphasic waveforms are seen throughout both lower extremities. There appears to be stenosis of the proximal right anterior tibial artery. Right PSV Left PSV Common femoral artery 112.5 cm/s 94.3 cm/s Profunda 80.1 cm/s 89.6 cm/s Proximal SFA 68.2 cm/s 84.1 cm/s Mid SFA 91.4 cm/s 74.4 cm/s Distal SFA 65.2 cm/s 67.6 cm/s Popliteal 58.4 cm/s 58.2 cm/s Proximal MASHA 22.9 cm/s 60.1 cm/s Tibial peroneal trunk 53.2 cm/s 37.3 cm/s Proximal EXTRUDER 58.5 cm/s 36.3 cm/s Distal EXTRUDER 60.7 cm/s 87.6 cm/s Distal MASHA 33.5 cm/s 74.1 cm/s IMPRESSION: No change since prior study of 05/27/2018. There appears to be stenosis of the proximal right MASHA without other significant stenosis identified sonographically. Electronically Signed by Fahad Baker MD 12/03/2018 03:08 P
== END ==
LOC: M RAD 11:43
PROVIDERS: ATTEND Surgery Vascular Surgery
DX: I70.213 Atherosclerosis of native arteries of extremities with intermittent claudication, bilateral legs (principal)

== ENCOUNTER 2019-03-19 11:45 | Emergency (ER) | payer MEDICARE, MEDICAID ==
[~2019-03-19] VITALS: Ht 152.4 cm; Wt 97.7 kg
[~2019-03-19 11:45] MED LIST changes: -OMEP40CA2 PO; +OMEP40CA97 PO; +SERT25TA21 PO; -SERT25TA88 PO
[2019-03-19] MEDS ORDERED: RABIES VACCINE HUMAN 2.5 INTERNATIONAL UNITS/ML VIAL (90675) IM ONE (12:15)
[2019-03-19] MEDS ORDERED: CLOT10TR PO (12:26)
[2019-03-19] MEDS ORDERED: DOXY100C37 (12:26)
[2019-03-19] MEDS ORDERED: CLIN300C5 (12:26)
[2019-03-19] MEDS ORDERED: BUSP10TA PO (12:26)
[2019-03-19] MEDS ORDERED: LEVA1TAB2 PO (13:09)
[2019-03-19] MEDS ORDERED: LevoFLOXacin IV 500 MG in IV 1 EA IV ONE (13:15)
[2019-03-19] MEDS ORDERED: ACETAMINOPH W/CODEINE #3 TAB UD PO ONE (13:15)
[2019-03-19 13:25] LABS: BASO % 0.3 % (0.0-1.0); EOS # 0.2 10^3/uL (0.0-0.50); EOS % 1.5 % (0.0-3.0); HEMATOCRIT 26.7 % (36.0-47.0); HEMOGLOBIN 8.5 g/dl (12.0-15.5); LYMPH # 1.4 10^3/uL (1.5-4.5); LYMPH % 13.3 % (24.0-44.0); MEAN CORPUSCULAR HEMOGLOBIN 29.6 pg (27.0-33.0); MEAN CORPUSCULAR HGB CONC 31.8 g/dl (32.0-36.5); MONO % 8.8 % (0.0-5.0); NEUTROPHILS # 8.2 10^3/uL (1.8-7.7); NEUTROPHILS % 75.7 % (36.0-66.0); PLATELET COUNT, AUTOMATED 307 10^3/uL (150-450); RED BLOOD COUNT 2.87 10^6/uL (4.00-5.40); WHITE BLOOD COUNT 10.8 10^3/uL (4.0-10.0)
[2019-03-19 13:43] LABS: ERYTHROCYTE SEDIMENTATION RATE 107 mm/hr (0-30)
[2019-03-19 13:55] LABS: ALBUMIN 2.7 GM/DL (3.2-5.2); BILIRUBIN,TOTAL 0.4 MG/DL (0.2-1.0); C REACTIVE PROTEIN QUANTITATIV 7.04 MG/DL (0.00-0.30); CALCIUM LEVEL 9.1 MG/DL (8.8-10.2); CREATININE FOR GFR 1.38 MG/DL (0.55-1.30); GLOMERULAR FILTRATION RATE 39.8 (>39); POTASSIUM SERUM 3.8 MEQ/L (3.5-5.1); TOTAL PROTEIN 6.1 GM/DL (6.4-8.2)
[2019-03-19] MEDS ORDERED: TYLETAB14 PO (14:36)
[2019-03-19 14:40] VITALS: BP 135/60
== END 2019-03-19 14:47 | disposition home or self-care (01) ==
LOC: M ED 11:45
DX: L03.113 Cellulitis of right upper limb (principal); W55.01XA Bitten by cat, initial encounter; Y92.018 Other place in single-family (private) house as the place of occurrence of the external cause; I12.9 Hypertensive chronic kidney disease with stage 1 through stage 4 chronic kidney disease, or unspecified chronic kidney disease; N18.3 Chronic kidney disease, stage 3 (moderate); J44.9 Chronic obstructive pulmonary disease, unspecified; E11.9 Type 2 diabetes mellitus without complications; J45.909 Unspecified asthma, uncomplicated; E03.9 Hypothyroidism, unspecified; G62.9 Polyneuropathy, unspecified; K21.9 Gastro-esophageal reflux disease without esophagitis; F33.9 Major depressive disorder, recurrent, unspecified; F41.9 Anxiety disorder, unspecified; E78.00 Pure hypercholesterolemia, unspecified; Z88.0 Allergy status to penicillin; Z88.1 Allergy status to other antibiotic agents; Z88.2 Allergy status to sulfonamides; Z88.5 Allergy status to narcotic agent; Z88.8 Allergy status to other drugs, medicaments and biological substances; Z91.048 Other nonmedicinal substance allergy status
CPT/HCPCS: 36415; 80053; 85025; 85652; 86140; 87040; 96365; 99284; J1956

== ENCOUNTER → 2019-04-12 | Outpatient (CLI) | payer MEDICARE, MEDICAID ==
[~2019-04-12] MED LIST changes: +BACITAB PO; +BUPIVACAINE HCL 0.25% 30 ML VIAL As Ordered ONE; +BUSP10TA PO; +CLIN300C5; +CLOT10TR PO; +DOXY100C37; +FLON1SPR; +ISOVUE-M 300 61% 15ML VIAL (Q9967) As Ordered ONE; +LEVA1TAB2 PO; +LEVA750T7 PO; +LEVO150T42 PO; +LIDOCAINE 1% SDV INJ 30 ML VIAL As Ordered ONE; +PRED10TA2 PO; +TRIAMCINOLONE ACETONIDE SUSP 40 MG/ML VIAL (J3301) As Ordered ONE; +TYLETAB14 PO
--- NOTE | 2019-04-12 14:58 | REP ---
C-ARM VIEWS SACROILIAC JOINTS: CLINICAL HISTORY: Pain. Six views of bilateral sacroiliac joints performed during sacroiliac joint injection by Dr. Good. A needle is seen overlying each SI joint. 17 seconds of fluoroscopy time utilized. Electronically Signed by Fahad Baker MD 04/13/2019 10:45 A
--- NOTE | 2019-04-22 01:18 | ECWPNPC ---
PATIENT NAME: YESICA JACKSON : 1945 GENDER: FEMALE VISIT DATE: 04/12/2019 DISCHARGE DATE: 04/12/19 1402 VISIT LOCKED DATE TIME: PHYSICIAN: DEAN DODSON MD RESOURCE: DEAN DODSON MD REASON FOR APPOINTMENT 1. LAKHWINDER VALLES HISTORY OF PRESENT ILLNESS HISTORY OF PRESENT ILLNESS: PAIN THE PATIENT DESCRIBES THE PAIN... FALL RISK SCREENING: SCREENING :NO FALLS REPORTED IN THE LAST YEAR CURRENT MEDICATIONS TAKING XANAX 0.5 MG TABLET 1 TABLET ORALLY TWICE A DAY TAKING ZOLOFT 100 MG TABLET 1 AND 1/2 TABLET ORALLY ONCE A DAY TAKING CICLOPIROX OLAMINE 0.77 % CREAM 1 APPLICATION TO AFFECTED AREA EXTERNALLY TWICE A DAY NEEDED TAKING LIDOCAINE HCL 5 % OINTMENT APPLY TO RIGHT KNEE AND THIGH EXTERNALLY 3-4 TIMES A DAY NEEDED FOR PAIN TAKING CYANOCOBALAMIN 1000 MCG TABLET 1 TABLET ORALLY ONCE A DAY TAKING COLACE 100 MG CAPSULE 1 CAPSULE ORALLY ONCE A DAY TAKING CALCITRIOL 0.5 MCG CAPSULE 1 CAPSULE ORALLY ONCE A DAY TAKING VENTOLIN HFA 108 (90 BASE) MCG/ACT AEROSOL SOLUTION 2 PUFFS INHALATION EVERY 4 HOURS NEEDED FOR SOB, COUGH, WHEEZE TAKING LIPITOR 40 MG TABLET 1 TABLET ORALLY ONCE A DAY TAKING OMEPRAZOLE 40 MG CAPSULE DELAYED RELEASE 1 CAPSULE ORALLY TWICE A DAY TAKING ALLOPURINOL 300 MG TABLET 1 TABLET ORALLY ONCE A DAY, NOTES: 04/09/19 TAKING GABAPENTIN 300 MG CAPSULE 1 CAPSULE ORALLY THREE TIMES DAILY TAKING NYSTATIN [id number] UNIT/GM POWDER 1 APPLICATION TO AREA UNDER BREAST EXTERNALLY TWICE A DAY TAKING MAY HAVE - - HAND RAIL BY TOILET _ DAILY. DX: M19.90 TAKING FOLIC ACID 1 MG TABLET 1 TABLET ORALLY ONCE A DAY TAKING LEVOTHYROXINE SODIUM 150 MCG TABLET 1 TABLET ON AN EMPTY STOMACH IN THE MORNING ORALLY ONCE A DAY TAKING LASIX 40 MG TABLET 1 TAB ORALLY TWICE DAILY TAKING CLOTRIMAZOLE 10 MG LOZENGE 1 CLINT MOUTH/THROAT FIVE TIMES A DAY NEEDED TAKING VICTOZA 18 MG/3ML SOLUTION PEN-INJECTOR 1.8MG SUBCUTANEOUS ONCE A DAY, NOTES: 04/11 2100 TAKING LEVEMIR FLEXTOUCH 100 UNIT/ML SOLUTION PEN-INJECTOR 18 UNITS SUBCUTANEOUS DAILY--TAKE IN THE AM, NOTES: 04/11 0900 TAKING INCRUSE ELLIPTA 62.5 MCG/INH AEROSOL POWDER BREATH ACTIVATED 1 PUFF INHALATION ONCE A DAY TAKING ALBUTEROL SULFATE (2.5 MG/3ML) 0.083% NEBULIZATION SOLUTION 3 ML NEEDED INHALATION EVERY 4 HOURS NEEDED FOR SOB/COUGH/WHEEZE TAKING BUSPIRONE HCL 10 MG TABLET 1 TABLET ORALLY TWICE A DAY TAKING SINGULAIR 10 MG TABLET 1 TABLET IN THE EVENING ORALLY ONCE A DAY TAKING CLINDAMYCIN HCL 300 MG CAPSULE 2 CAPSULES ORALLY ONE HOUR PRIOR TO DENTAL WORK TAKING LOSARTAN POTASSIUM 50 MG TABLET 1 TABLET ORALLY ONCE A DAY TAKING LANCETS _ MISCELLANEOUS DIRECTED DX: E11.21 FOUR TIMES A DAY TAKING BLOOD GLUCOSE TEST STRIP _ STRIP ONE TOUCH ULTRA 2 IN VITRO, DX: E11.21 FOUR TIMES A DAY TAKING GLIPIZIDE-METFORMIN HCL 5-500 MG TABLET 1 TABLET ORALLY DAILY AT SUPPER TAKING FERROUS GLUCONATE 324 (38 FE) MG TABLET 1 TABLET ORALLY EVERY OTHER DAY TAKING SENNA S 8.6-50 MG TABLET 2 TABLET ORALLY TWICE A DAY TAKING PEN NEEDLES 10/15" 31G X 5 MM MISCELLANEOUS BD ULTRA FINE SUBCUTANEOUSLY TWICE A DAY DX: E11.9 TAKING ADVAIR DISKUS 500-50 MCG/DOSE AEROSOL POWDER BREATH ACTIVATED 1 PUFF INHALATION TWICE A DAY TAKING DEPEND PANT EXTRA LARGE 1 EA UNDERGARMENTS EXTRA LARGE. 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 CHRONIC KIDNEY DISEASE, STAGE 3 (MODERATE) HYPOTHYROIDISM, UNSPECIFIED HYPERCHOLESTEROLEMIA ANEMIA IN OTHER CHRONIC DISEASES CLASSIFIED ELSEWHERE CHRONIC OBSTRUCTIVE PULMONARY DISEASE, UNSPECIFIED OTHER DIABETIC NEUROLOGICAL COMPLICATION ASSOCIATED WITH TYPE 2 DIABETES MELLITUS LOCALIZED EDEMA GASTRO-ESOPHAGEAL REFLUX DISEASE WITHOUT ESOPHAGITIS SLEEP APNEA, UNSPECIFIED DYSTHYMIC DISORDER GOUT, UNSPECIFIED VITAMIN D DEFICIENCY, UNSPECIFIED ESOPHAGEAL OBSTRUCTION GASTROPARESIS PSEUDOGOUT PRIMARY OSTEOARTHRITIS, RIGHT HAND B12 DEFICIENCY PRIMARY OSTEOARTHRITIS OF LEFT HAND RIGHT LUMBAR RADICULOPATHY INFECTION RIGHT HAND FROM CAT BITE ALLERGIES ACTOS: CHF - ALLERGY PENICILLIN (FOR ALLERGIES USE ONLY): RASH - ALLERGY BYETTA 10 MCG PEN: VERY SICK - ALLERGY TRAMADOL: ITCH - ALLERGY SULFA (FOR ALLERGY USE ONLY): ITCH - ALLERGY SURGICAL HISTORY BILATERAL HIP OPERATIONS ON SIX DIFFERENT OCCASIONS, INITIALLY STARTING AT AGE 10 WHEN SHE HAD SLIPPED CAPITAL FEMORAL EPIPHYSES AGE 10 TUBAL LIGATION IN THE 1969'S 06/22/1972 LEFT KNEE REPLACED 2000? C-SPINE DISCECTOMY AND DONOR GRAFT AT C5 2001 HYSTERECTOMY WITH BLADDER REPAIR FOR VAGINAL BLEEDING 2003 HERNIA REPAIR, REPAIR OF THREE DIFFERENT ABDOMINAL HERNIAS RIGHT CARPAL TUNNEL SURGERY AND RIGHT ULNAR NERVE TRANSPOSITION 2004 COLONOSCOPY 2008 LEFT NIPPLE BREAST BIOPSY 2008 COLONOSCOPY 2009 COLONOSCOPY 2012 LEFT SHOULDER REPLACEMENT 10/27/2013 LAPAROSCOPIC CHOLECYSTECTOMY 07/21/2016 BILATERAL CATARACT SURGERY-DR. GAMBOA 06/09 AND 06/16/2017 UPPER ENDOSCOPY WITH ESOPHAGEAL DILATION 10/2017 FAMILY HISTORY FATHER: 70 YRS MOTHER: 83 YRS 3 SON(S) , 1 DAUGHTER(S) . FATHER OF CVA\\\\\\\\\\\\\\\\NMOTHER OF COMPLICATIONS OF DIABETES\\\\\\\\\\\\\\\\N4 SIBLINGS, AT LEAST 2 ARE DIABETIC1 SON ARTHRITIS, PACEMAKER1 SON LEUKEMIA THAT IS IN REMISSION1 SON BACK PROBLEMSDAUGHTER-NOT SURE OF HISTORY. SOCIAL HISTORY GENERAL: TOBACCO USE ARE YOU A:FORMER SMOKER ARE YOU A:FORMER SMOKER HOW LONG HAS IT BEEN SINCE YOU LAST SMOKED?> 10 YEARS HOW LONG HAS IT BEEN SINCE YOU LAST SMOKED?> 10 YEARS HIV / HEP-C SCREENING HIV TEST OFFERED TO PATIENT:YES HIV TEST OFFERED TO PATIENT:YES DATE OFFERED:11/01/2017 DATE OFFERED:11/01/2017 TEST ACCEPTED:NO TEST ACCEPTED:NO HEP-C TEST OFFERED TO PATIENT:YES HEP-C TEST OFFERED TO PATIENT:YES DATE OFFERED:11/01/2017 DATE OFFERED:11/01/2017 REASON:PATIENT DECLINED REASON:PATIENT DECLINED TEST ACCEPTED:NO TEST ACCEPTED:NO REASON:PATIENT DECLINED REASON:PATIENT DECLINED BROCHURE PROVIDED TO PATIENTYES BROCHURE PROVIDED TO PATIENTYES HOUSING: RENTS APARTMENT. EDUCATION LEVEL OF EDUCATION:FINISHED HIGH SCHOOL LEVEL OF EDUCATION:FINISHED HIGH SCHOOL DIET: REGULAR. LANGUAGE LANGUAGES SPOKEN:FAROESE LANGUAGES SPOKEN:FAROESE DOMESTIC VIOLENCE DO YOU FEEL SAFE IN YOUR ENVIRONMENT?YES DO YOU FEEL SAFE IN YOUR ENVIRONMENT?YES BMI CARE GOAL FOLLOW-UP ABOVE NORMAL BMI FOLLOW-UPDIETARY MANAGEMENT EDUCATION, GUIDANCE, AND COUNSELING ABOVE NORMAL BMI FOLLOW-UPDIETARY MANAGEMENT EDUCATION, GUIDANCE, AND COUNSELING RECREATIONAL DRUG USE DRUG USE?NO DRUG USE?NO EXERCISE: NO REGULAR EXERCISE. 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 NEEDED?NO PAIN CLINIC PFS, CLERGY, PUBLIC HEALTH REFERRALS HAS THE PATIENT BEEN EDUCATED REGARDING HIS/HER PLAN OF CARE?YES HAS THE PATIENT BEEN EDUCATED REGARDING PAIN, THE RISK FOR PAIN, THE IMPORTANCE OF EFFECTIVE PAIN MANAGEMENT, AND THE PAIN ASSESSMENT PROCESS?YES LATEX QUESTIONNAIRE LATEX ALLERGY : HAVE YOU EVER DEVELOPED ANY TYPE OF REACTION AFTER HANDLING LATEX PRODUCTS SUCH RUBBER GLOVES, CONDOMS, DIAPHRAGMS, BALLOONS, SOCKS, OR UNDERWEAR?NO LATEX ALLERGY : HAVE YOU EVER DEVELOPED ANY TYPE OF REACTION DURING OR AFTER DENTAL APPOINTMENT, VAGINAL/RECTAL EXAMINATION, SURGICAL PROCEDURE, OR ANY OTHER EXPOSURE?NO LATEX RISK : HAVE YOU EVER HAD ANY DIFFICULTY BREATHING OR HIVES AFTER EATING OR HANDLING ANY FRUITS, OR VEGETABLES; SUCH KIWI, BANANAS, STONE FRUITS, OR CHESTNUTSNO LATEX RISK : DO YOU HAVE A PREVIOUS PERSONAL HISTORY OF MORE THAN NINE SURGERIES, SPINA BIFIDA, OR REPEATED CATHERIZATIONS? YES - PLEASE INDICATE : > 9 SURGERIES LATEX RISK : ARE YOU FREQUENTLY EXPOSED TO LATEX PRODUCTS IN YOUR OCCUPATION?NO DATE ASKED : 04/12/2019 CAFFEINE CAFFEINE USE?YES CAFFEINE USE?YES HOW OFTEN AND HOW MUCH? COFFEE HOW OFTEN AND HOW MUCH? COFFEE ADVANCE DIRECTIVE ADVANCE DIRECTIVE DISCUSSED WITH PATIENT:YES HAS HCP-SPOUSE - LUIS RENETTA - [phone], SON - MAGUI JACKSON ALEVISM ALEVISM NO YARSANISM BELIEFS THAT WOULD IMPACT HEALTH CARE. ALEVISM NO YARSANISM BELIEFS THAT WOULD IMPACT HEALTH CARE. MARITAL STATUS: WITH 4 CHILDREN. 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 SEXUAL HX HAD SEX IN THE LAST 12 MONTHS (VAGINAL, ORAL, OR ANAL)?NO HAD SEX IN THE LAST 12 MONTHS (VAGINAL, ORAL, OR ANAL)?NO HAVE YOU EVER HAD AN STD?NO HAVE YOU EVER HAD AN STD?NO REVIEWED WITH PT -5-18 BVREVIEWED WITH PT 11/30/18 1315 LAS04/12/19 REVIEWED WITH PT. AD. HOSPITALIZATION/MAJOR DIAGNOSTIC PROCEDURE PANCREATITIS 12/12/2015 [facility] ER- CHOLECYSTITIS-CHRONIC 06/01/2016 [facility]ARE [facility]-URI 07/2017 [facility]-RIGHT LUMBAR RADICULOPATHY 02/26-03/02/2018 REVIEW OF SYSTEMS REVIEWED BY: PROVIDER: . CONSTITUTIONAL: ANY CHANGE IN YOUR MEDICAL CONDITION? NO . CHILLS NO . FEVER NO . INFECTION: DO YOU HAVE NEW INFECTIONS? YES, LAST MONTH HAD INFECTION RIGHT HAND FROM CAT BITE. TREATED WITH ANTIBIOTIC. . DO YOU HAVE HISTORY OF MRSA? NO . MUSCULOSKELETAL: ANY NEW PATTERNS OF PAIN OR NUMBNESS? NO . GASTROENTEROLOGY: ANY NEW CHANGE IN BOWEL CONTROL? NO . GENITOURINARY: ANY NEW CHANGE IN BLADDER CONTROL? NO . IS THERE A CHANCE YOU COULD BE ? NO . HEMATOLOGY/LYMPH: DO YOU TAKE ANY BLOOD THINNERS? (FOR EXAMPLE- COUMADIN, PLAVIX, AGGRENOX, PLATEL, PRADAXA, OR XARELTO) NO . WHEN WAS YOUR LAST DOSE? DATE: TIME: . NEUROLOGY: HAVE YOU FALLEN IN THE PAST 12 MONTHS? NO . ANY NEW EXTREMITY NUMBNESS OR WEAKNESS? YES, WEAKNESS RIGHT ARM AND LEG OVER PAST 3 MONTHS . CARDIOLOGY: DO YOU HAVE A PACEMAKER OR DEFIBRILLATOR? NO . RESPIRATORY: HAVE YOU BEEN SICK IN THE PAST WEEK? NO . FEVER NO . FLU LIKE SYMPTOMS? NO . COUGH NO . INTEGUMENTARY: DO YOU HAVE ANY RASHES OR OPEN SORES? NO . ALLERGIC/IMMUNO: ARE YOU ALLERGIC TO IV DYE? NO . ANY NEW ALLERGIES? NO . PSYCHIATRIC: DO YOU HAVE THOUGHTS OF HURTING YOURSELF OR SOMEONE ELSE? NO . ARE YOU ABUSED, NEGLECTED, OR IN AN UNSAFE ENVIRONMENT? NO . ENDOCRINOLOGY: ARE YOU DIABETIC? YES FSBS 160 AT HOME AT 0900 . OTHER: DO YOU NEED ANY PRESCRIPTIONS? NO . IF YES, PLEASE LIST: ____ . ANY NEW PROBLEMS WITH YOUR MEDICATIONS? NO . WHEN DID YOU LAST EAT? 04/11 2000 . WHEN DID YOU LAST DRINK? 04/11 12 MIDNIGHT . WHAT DID YOU LAST DRINK? GINGERALE . NAME OF PERSON DRIVING YOU HOME? LUIS JACKSON . DO YOU HAVE ANY OTHER QUESTIONS OR CONCERNS NO HAD TETANUS VACCINE APPROX 03/09/19 DUE TO CAT BITE. AD . VITAL SIGNS WT 220.2 LBS, HT 62 IN, BMI 40.27 INDEX, BP 137/65 MM HG, HR 90 /MIN, RR 16 /MIN, TEMP 97.7 F, OXYGEN SAT % 95%, SAFE IN ENV? (Y/N) Y, NA INITIALS AW 1110, REVIEWED BY: AD. ASSESSMENTS SACROILIITIS, NOT ELSEWHERE CLASSIFIED - M46.1 (PRIMARY) TREATMENT SACROILIITIS, NOT ELSEWHERE CLASSIFIED [facility] FLUORO GUIDANCE (PAIN)[id number] PROCEDURES PN SI PRE PROCEDURE DIAGNOSIS SACROILIITIS, SACROILIAC JOINT DYSFUNCTION POST PROCEDURE DIAGNOSIS SACROILIITIS, SACROILIAC JOINT DYSFUNCTION PROCEDURE BILATERAL SACROILIAC JOINT BLOCK SURGEON DR. DEAN DODSON WHITE SIDEWALL TIRE BUFFER NONE ANESTHESIA LOCAL PRE PROCEDURE NOTE PATIENT WITH HISTORY OF CHRONIC LOW BACK PAIN. I EVALUATED THE PATIENT AND REVIEWED THE CHART. I WENT OVER THE RISKS, ALTERNATIVES, AND BENEFITS ASSOCIATED WITH THIS PROCEDURE. THE PATIENT WOULD LIKE TO PROCEED AND GAVE CONSENT TO PERFORM THE PROCEDURE. THE PATIENT DENIES UNEXPLAINABLE WEIGHT LOSS, FEVER, CHILLS, OR NEW CHANGES IN URINARY OR BOWEL CONTROL DESCRIPTION OF PROCEDURE THE PATIENT WAS BROUGHT TO THE PROCEDURE ROOM AND PLACED IN THE PRONE POSITION. THE LUMBOSACRAL AREA WAS CLEANED WITH CHLORAPREP SOLUTION AND DRAPED ASEPTICALLY. THE PROCEDURE WAS DONE UNDER STERILE CONDITIONS. I CHECKED LATERALITY AND THE LEVEL WHERE THE PROCEDURE WAS GOING TO BE PERFORMED WITH THE PATIENT AND THE SUPPORTING STAFF AT THE MOMENT OF THE TIME OUT IN THE PROCEDURE ROOM. UNDER FLUOROSCOPIC GUIDANCE, TARGET POINT WAS SELECTED AT THE LOWER BORDER OF THE RIGHT AND LEFT SACROILIAC JOINT. TARGET POINT WAS SELECTED AFTER MEDIAL ROTATION AND TILT OF THE MAGNIFIER OF THE C-ARM. LIDOCAINE WAS USED TO NUMB THE SKIN AND SUBCUTANEOUS TISSUE BELOW IT. A SPINAL NEEDLE, 22-GAUGE, WAS ADVANCED UNDER FLUOROSCOPIC GUIDANCE AND FOLLOWING PATIENT FEEDBACK UNTIL THE TARGET AREA WAS TOUCHED. THE POSITION OF THE NEEDLE WAS VERIFIED WITH AP AND LATERAL VIEWS. AFTER PROPER POSITION OF THE NEEDLE WAS ACHIEVED, ISOVUE M DYE 30%, 0.25 ML, WAS INJECTED SHOWING SPREAD OF THE DYE. THEN, A SOLUTION OF 30 MG OF KENALOG WAS INJECTED IN RIGHT AND LEFT JOINT WITH 3 ML OF BUPIVACAINE 0.125%. THERE WAS NO EVIDENCE OF BLOOD, PARESTHESIA OR CEREBROSPINAL FLUID DURING THE PROCEDURE. THE PATIENT WAS SENT TO THE RECOVERY ROOM. THE PATIENT WAS MOVING THE EXTREMITIES AND DOING WELL. THERE WAS NO COMPLICATION DURING THE PROCEDURE. FLUOROSCOPY TIME WAS 13 SECONDS POST PROCEDURE NOTE THE PATIENT WILL BE SEEN IN A FOLLOW UP IN THE NEXT FEW WEEKS. INSTRUCTIONS WERE GIVEN, QUESTIONS WERE ANSWERED, AND THE PATIENT EXPRESSED UNDERSTANDING AND AGREED WITH THE PLAN. I, DEEPTHI COATS, DOCUMENTED THE ABOVE INFORMATION ACTING A SCRIBE FOR DR. DODSON. I HAVE REVIEWED THE ABOVE DOCUMENT, WRITTEN BY DEEPTHI KAPOORIBQuique AND I VERIFY THAT IT IS ACCURATE. PROCEDURE CODES 78476 INJECT SACROILIAC JOINT, MODIFIERS: 50 [id number] RADXPS IN END [id number] PXD DISPOSITION & COMMUNICATION FOLLOW UP 3 WEEKS ELECTRONICALLY SIGNED BY DEAN DODSON MD, MD ON 04/21/2019 AT 11:59 AM EDT DISCLAIMER : THIS IS A VISIT SUMMARY EXTRACTED FROM THE [employer] CHART. IT IS NOT A COPY OF THE [employer] PROGRESS NOTE. MTDD
== END ==
LOC: M PAIN 11:30
PROVIDERS: ATTEND Anesthesiology
DX: M46.1 Sacroiliitis, not elsewhere classified (principal); E11.21 Type 2 diabetes mellitus with diabetic nephropathy; E11.22 Type 2 diabetes mellitus with diabetic chronic kidney disease; N18.3 Chronic kidney disease, stage 3 (moderate); E03.9 Hypothyroidism, unspecified; E78.00 Pure hypercholesterolemia, unspecified; D63.8 Anemia in other chronic diseases classified elsewhere; J44.9 Chronic obstructive pulmonary disease, unspecified; E11.49 Type 2 diabetes mellitus with other diabetic neurological complication; R60.0 Localized edema; K21.9 Gastro-esophageal reflux disease without esophagitis; G47.30 Sleep apnea, unspecified; F34.1 Dysthymic disorder; M10.9 Gout, unspecified; E55.9 Vitamin D deficiency, unspecified; E11.43 Type 2 diabetes mellitus with diabetic autonomic (poly)neuropathy; K31.84 Gastroparesis; M19.041 Primary osteoarthritis, right hand; M19.042 Primary osteoarthritis, left hand; E53.8 Deficiency of other specified B group vitamins; M54.16 Radiculopathy, lumbar region; Z96.652 Presence of left artificial knee joint; Z96.612 Presence of left artificial shoulder joint; Z90.49 Acquired absence of other specified parts of digestive tract; Z98.41 Cataract extraction status, right eye; Z98.42 Cataract extraction status, left eye; Z87.891 Personal history of nicotine dependence; Z79.4 Long term (current) use of insulin; Z79.899 Other long term (current) drug therapy; Z88.0 Allergy status to penicillin; Z88.2 Allergy status to sulfonamides; Z88.5 Allergy status to narcotic agent; Z88.8 Allergy status to other drugs, medicaments and biological substances
CPT/HCPCS: G0260; J3301; Q9967

== ENCOUNTER → 2019-05-03 | Outpatient (CLI) | payer MEDICARE, MEDICAID ==
[~2019-05-03] MED LIST changes: -BACITAB PO; -BUPIVACAINE HCL 0.25% 30 ML VIAL As Ordered ONE; +BUSP10TA; -BUSP10TA PO; +CLOT10TR; -CLOT10TR PO; -FLON1SPR; -ISOVUE-M 300 61% 15ML VIAL (Q9967) As Ordered ONE; -LEVA750T7 PO; -LEVO150T42 PO; -LIDOCAINE 1% SDV INJ 30 ML VIAL As Ordered ONE; +OMEP40CA2 PO; -OMEP40CA97 PO; -PRED10TA2 PO; -SERT25TA21 PO; +SERT25TA88 PO; -TRIAMCINOLONE ACETONIDE SUSP 40 MG/ML VIAL (J3301) As Ordered ONE
== END ==
LOC: M PAIN 11:00
PROVIDERS: ATTEND Nurse Practitioner Family
DX: M46.1 Sacroiliitis, not elsewhere classified (principal); E11.21 Type 2 diabetes mellitus with diabetic nephropathy; E11.22 Type 2 diabetes mellitus with diabetic chronic kidney disease; N18.3 Chronic kidney disease, stage 3 (moderate); E03.9 Hypothyroidism, unspecified; E78.00 Pure hypercholesterolemia, unspecified; D63.8 Anemia in other chronic diseases classified elsewhere; J44.9 Chronic obstructive pulmonary disease, unspecified; E11.43 Type 2 diabetes mellitus with diabetic autonomic (poly)neuropathy; R60.0 Localized edema; K21.9 Gastro-esophageal reflux disease without esophagitis; G47.30 Sleep apnea, unspecified; F34.1 Dysthymic disorder; M10.9 Gout, unspecified; E55.9 Vitamin D deficiency, unspecified; K31.84 Gastroparesis; M19.041 Primary osteoarthritis, right hand; M19.042 Primary osteoarthritis, left hand; M54.16 Radiculopathy, lumbar region; E53.8 Deficiency of other specified B group vitamins; Z87.891 Personal history of nicotine dependence; Z96.612 Presence of left artificial shoulder joint; Z90.49 Acquired absence of other specified parts of digestive tract; Z98.41 Cataract extraction status, right eye; Z98.42 Cataract extraction status, left eye; Z79.84 Long term (current) use of oral hypoglycemic drugs; Z79.899 Other long term (current) drug therapy; Z88.0 Allergy status to penicillin; Z88.2 Allergy status to sulfonamides; Z88.5 Allergy status to narcotic agent; Z88.8 Allergy status to other drugs, medicaments and biological substances

== ENCOUNTER 2019-06-13 12:58 | Emergency (ER) | payer MEDICARE, MEDICAID ==
[~2019-06-13] VITALS: Ht 152.4 cm; Wt 99.5 kg
[~2019-06-13 12:58] MED LIST changes: -OMEP40CA2 PO; +OMEP40CA97 PO; +SERT25TA21 PO; -SERT25TA88 PO
[2019-06-13] MEDS ORDERED: NS 1,000 ML IV SCH (13:41)
--- NOTE | 2019-06-13 13:44 | REP ---
Two-view chest: 06/13/2019. Indication: Dyspnea. Comparison: 05/25/2016. Findings: The lungs are clear. There is no pleural effusion or pneumothorax. The cardiomediastinal silhouette is unremarkable. Postoperative sequelae of the lower cervical spine and left glenohumeral joint are noted. Impression: No acute cardiopulmonary process. Electronically Signed by Santosh Reese DO 06/13/2019 01:36 P
[2019-06-13] MEDS ORDERED: methylPREDNISolone INJ 125 MG/2 ML VIAL (J2930) IV ONE (13:45)
[2019-06-13 14:25] LABS: BASO # 0.1 10^3/uL (0.0-0.2); BASO % 0.6 % (0.0-1.0); EOS # 0.2 10^3/uL (0.0-0.5); HEMATOCRIT 31.4 % (36.0-47.0); HEMOGLOBIN 9.5 g/dl (12.0-15.5); LYMPH # 2.2 10^3/uL (1.5-5.0); MEAN CORPUSCULAR HGB CONC 30.3 g/dl (32.0-36.5); MEAN CORPUSCULAR VOLUME 92.6 fl (80.0-96.0); MONO # 0.7 10^3/uL (0.0-0.8); NEUTROPHILS # 5.8 10^3/uL (1.5-8.5); NEUTROPHILS % 65.2 % (36.0-66.0); PLATELET COUNT, AUTOMATED 284 10^3/uL (150-450); RED BLOOD COUNT 3.39 10^6/uL (4.00-5.40)
[2019-06-13 14:41] LABS: ALBUMIN 2.8 GM/DL (3.2-5.2); ALT/SGPT 12 U/L (12-78); BILIRUBIN,DIRECT < 0.1 MG/DL (0.0-0.2); BILIRUBIN,TOTAL 0.4 MG/DL (0.2-1.0); BLOOD UREA NITROGEN 33 MG/DL (7-18); CALCIUM LEVEL 8.4 MG/DL (8.8-10.2); CARBON DIOXIDE LEVEL 33 MEQ/L (21-32); CHLORIDE LEVEL 107 MEQ/L (98-107); CK-MB VALUE MASS 1.1 NG/ML (<3.6); CPK CREATINE PHOSPHOKINASE 55 U/L (26-192); GLOMERULAR FILTRATION RATE 36.1 (>39); GLUCOSE, FASTING 58 MG/DL (70-100); NT-PRO BNP 285 PG/ML (<125); POTASSIUM SERUM 3.3 MEQ/L (3.5-5.1); SODIUM LEVEL 145 MEQ/L (136-145); TOTAL PROTEIN 6.3 GM/DL (6.4-8.2); TROPONIN I < 0.02 NG/ML (< 0.10)
[2019-06-13 14:43] LABS: INR 1.11
[2019-06-13 14:53] LABS: INFLUENZA A AMPLIFICATION NEGATIVE (NEGATIVE); INFLUENZA B AMPLIFICATION NEGATIVE (NEGATIVE)
[2019-06-13] MEDS: IPRATROPIUM 0.5MG/ALBUTEROL 2.5MG INH SOL UD 3ML (DUONEB)(J7620) NEB PRN ×2 (14:57→15:10)
[2019-06-13 14:58] LABS: ABG BASE EXCESS 5.1 (-2.0-2.0); ABG HCO3 29.8 MEQ/L (22.0-26.0); ABG O2 SATURATION 92.1 % (95.0-99.0); ABG PARTIAL PRESSURE CO2 44.6 mmHg (35.0-45.0); ABG TOTAL CO2 31.2 MEQ/L (23.0-31.0); ABG pH (ARTERIAL) 7.443 UNITS (7.350-7.450)
[2019-06-13] MEDS ORDERED: PRED10TA2 PO (15:56)
[2019-06-13 16:59] VITALS: BP 170/81
--- NOTE | 2019-06-13 23:23 | ECGEPIP ---
[facility] - ED Test Date: 2019-06-13 Pat Name: YESICA JACKSON Department: Room: - Gender: Female Tractor Technician: ANNALEE : 1945 Requested By: ARDEN BILLINGSLEY Order Number: [id number] Reading MD: Porter Horton Measurements Intervals Ferdinand Rate: 81 P: 70 MD: 251 QRS: -90 QRSD: 144 T: 38 QT: 431 QTc: 502 Interpretive Statements SINUS RHYTHM WITH FIRST DEGREE AV BLOCK MARKED LEFT AXIS DEVIATION RIGHT BUNDLE BRANCH BLOCK SIMILAR TO SIMILAR TO 05/23/16 Electronically Signed on 06-13-2019 23:23:22 EST by Porter Horton
== END 2019-06-13 17:09 | disposition home or self-care (01) ==
LOC: M ED 12:58
DX: J45.901 Unspecified asthma with (acute) exacerbation (principal); I44.0 Atrioventricular block, first degree; I45.10 Unspecified right bundle-branch block; I51.9 Heart disease, unspecified; I10 Essential (primary) hypertension; E78.5 Hyperlipidemia, unspecified; N18.9 Chronic kidney disease, unspecified; Z82.49 Family history of ischemic heart disease and other diseases of the circulatory system; Z79.4 Long term (current) use of insulin; Z79.899 Other long term (current) drug therapy; Z88.0 Allergy status to penicillin; Z88.2 Allergy status to sulfonamides; Z88.8 Allergy status to other drugs, medicaments and biological substances; Z88.5 Allergy status to narcotic agent; Z91.89 Other specified personal risk factors, not elsewhere classified
CPT/HCPCS: 36600; 71046; 80048; 80076; 82550; 82553; 82803; 83605; 83880; 84484; 85025; 85610; 87040; 87502; 93005; 93041; 94640; 96374; 99284; J2930

== ENCOUNTER 2019-06-26 11:19 | Inpatient (IN) | payer MEDICARE, MEDICAID ==
[~2019-06-26] VITALS: Ht 152.4 cm; Wt 97.5 kg
[~2019-06-26 11:19] MED LIST changes: -BUSP10TA; +BUSP10TA PO; -CLOT10TR; +CLOT10TR PO; +PRED10TA2 PO
[2019-06-26 12:12] LABS: BASO % 0.1 % (0.0-1.0); EOS # 0.1 10^3/uL (0.0-0.5); EOS % 1.1 % (0.0-3.0); HEMATOCRIT 28.8 % (36.0-47.0); HEMOGLOBIN 8.9 g/dl (12.0-15.5); LYMPH # 1.2 10^3/uL (1.5-5.0); LYMPH % 11.5 % (24.0-44.0); MEAN CORPUSCULAR HEMOGLOBIN 28.5 pg (27.0-33.0); MEAN CORPUSCULAR HGB CONC 30.9 g/dl (32.0-36.5); MEAN CORPUSCULAR VOLUME 92.3 fl (80.0-96.0); MONO # 0.6 10^3/uL (0.0-0.8); MONO % 5.6 % (0.0-5.0); NEUTROPHILS # 8.7 10^3/uL (1.5-8.5); PLATELET COUNT, AUTOMATED 177 10^3/uL (150-450); RED BLOOD COUNT 3.12 10^6/uL (4.00-5.40); WHITE BLOOD COUNT 10.7 10^3/uL (4.0-10.0)
[2019-06-26 12:47] LABS: ALBUMIN 2.7 GM/DL (3.2-5.2); ALT/SGPT 17 U/L (12-78); BILIRUBIN,DIRECT < 0.1 MG/DL (0.0-0.2); BILIRUBIN,TOTAL 0.3 MG/DL (0.2-1.0); BLOOD UREA NITROGEN 23 MG/DL (7-18); CALCIUM LEVEL 8.2 MG/DL (8.8-10.2); CARBON DIOXIDE LEVEL 32 MEQ/L (21-32); CHLORIDE LEVEL 102 MEQ/L (98-107); CK-MB VALUE MASS 1.2 NG/ML (<3.6); CPK CREATINE PHOSPHOKINASE 52 U/L (26-192); CREATININE FOR GFR 1.34 MG/DL (0.55-1.30); GLOMERULAR FILTRATION RATE 41.2 (>39); GLUCOSE, FASTING 259 MG/DL (70-100); MB/CK RELATIVE INDEX 2.31 (< OR =4); SODIUM LEVEL 142 MEQ/L (136-145); THYROID STIMULATING HORMONE 0.819 uIU/ML (0.358-3.740); THYROXINE (T4) 6.7 UG/DL (4.5-12.0); TOTAL PROTEIN 5.7 GM/DL (6.4-8.2); TROPONIN I 0.02 NG/ML (< 0.10)
--- NOTE | 2019-06-26 13:15 | REP ---
Clinical: Cough and dyspnea. Technique: PA and lateral. Comparison: 06/13/2019. Findings: Subtle right basilar atelectasis/early infiltrate suggested. Remainder of lung marshall are clear. Mediastinum and cardiac silhouette are stable. Skeletal structures stable. Impression: Subtle right basilar atelectasis/early infiltrate. Electronically Signed by Roland Grahma MD 06/26/2019 01:06 P
[2019-06-26 13:47] LABS: NT-PRO BNP 645 PG/ML (<125)
[2019-06-26] MEDS ORDERED: FUROSEMIDE 40 MG/4 ML VIAL (J1940) IV ONE (14:15)
--- NOTE | 2019-06-26 15:10 | HPEPDOC ---
[facility] Medical History & Physical Date of Admission Jun 26, 2019 Date of Service: Jun 26, 2019 History and Physical CHIEF COMPLAINT: SOB HISTORY OF PRESENT ILLNESS: Patient is a 73-year-old female with past history of COPD, not dependent on oxygen, SAMUEL, not tolerating CPAP, morbid obesity with a BMI of 42.9, peripheral vascular disease, hyperlipidemia, DJD, OA, gout, diabetes type 2, dependent on insulin, iron deficiency anemia, hypothyroidism, anxiety, depression setting with worsening shortness of breath. She was recently treated for COPD on steroid taper on 06/13/2019, today is her last steroid dose state. She reports using her home inhalers with some relief initially, however 3 days ago, she reports worsening shortness of breath which was not alleviated with her inhalers. She reports walking to her bathroom approximately 10 feet with worsening shortness of breath. She lives at home with her and son, she does have a hospital bed at home. She denies any fevers, chills, cough, diaphoresis, chest pain, nausea, vomiting, abdominal pain, issues with voiding or stooling, any new rashes, myalgias or arthralgias. Review of echocardiogram in 2016, report is limited, reveals an EF of 70%, with mildly dilated left atrium, unable to determine diastolic dysfunction, first- degree heart block, rapid resting heart rate, elevated pulmonary vascular resistance. In the last year and a half, patient reports diagnosis of COPD exacerbation requiring steroid taper. In the emergency department, patients blood pressure was slightly elevated at 164/71, she was saturating well on room air, afebrile. Labs include white elevation in WBCs of 10.7, anemia, hemoglobin of 8.9, which is her baseline, pot assium of 3.0, creatinine of 1.34, which is also her baseline, CKD stage III, lactic acid of 2.4, proBNP of 645, TSH within normal limits of 0.819. Chest x- ray reveals subtle right basilar atelectasis versus early infiltrate. She was given lasix 40 mg IV 1 in the ED. I personally reviewed her EKG, sinus rhythm with a heart rate of 82, first-degree heart block with a NE interval of 226, no axis deviation, nonspecific ST changes, QTC of 462. ROS: see above PMH: See above. PSH: 30+ surgeries including but not limited to: Lateral hip replacement, tubal ligation, right knee replacement, cervical spine discectomy with graft, hysterectomy, bladder repair, hernia repair 3, right carpal tunnel repair, right ulnar nerve transposition, left breast biopsy, left shoulder replacement, cholecystectomy, bilateral cataracts Family history: heart disease and diabetes Social history: Quit smoking over 35 years ago, previously smoked 1.5 packs per day for 20 years, no alcohol Allergies: Penicillin, sulfa, exenatide, pioglitazone, tramadol, tape HOME MEDICATIONS: Please see below. PHYSICAL EXAMINATION: VITAL SIGNS: Please see below. GENERAL: Morbidly obese female in no acute distress, able to speak in full sentences, not tripoding HEENT: Normocephalic, atraumatic, moist mucous membranes NECK: Supple CARDIOVASCULAR EXAMINATION: S1, S2 RESPIRATORY EXAMINATION: CTAB , but diminished, difficult to auscultate due to body habitus ABDOMINAL EXAMINATION: Soft, nontender, nondistended, positive bowel sounds, + reducible ventral hernia EXTREMITIES: Trace edema SKIN: No rash, thin skin, positive bruising NEUROLOGICAL EXAMINATION: Alert and oriented 3, no focal deficits PSYCHIATRIC EXAMINATION: Calm and cooperative, appropriate affect, has capacity LABORATORY DATA: See below. IMAGING:. See above MICROBIOLOGY: Please see below. ASSESSMENT: Patient is a 73-year-old female with past history of COPD, not dependent on oxygen, SAMUEL, not tolerating CPAP, morbid obesity with a BMI of 42.9, peripheral vascular disease, hyperlipidemia, DJD, OA, gout, diabetes type 2, dependent on insulin, iron deficiency anemia, hypothyroidism, anxiety, d epression setting with worsening shortness of breath. #. Acute on chronic respiratory syndrome secondary to CHF exacerbation with underlying SAMUEL, obesity hypoventilation syndrome. Will continue home diuretic, was given IV Lasix in the ED, replace electrolyte abnormalities. PT eval. Order echo. Increase home dose of Lasix, monitor creatinine. Follow-up with pro-Kiran due to elevated lactic acid. #COPD: Will hold additional steroids at this time, Continue home montelukast, and Advair 500-50 twice a day, incruse ellipta daily. Obtain Mg. #SAMUEL: Is not able to tolerate CPAP, patient inquires about home oxygen at night, will perform nocturnal pulse oximetry #Morbid obesity with a BMI of 42.9: Patient will require weight loss, lifestyle changes #HLD: Continue home med. Atorvastatin #HTN: Continue home losartan #. Gout: Continue home med. Allopurinol #Diabetes type 2, dependent on insulin: Continue home insulin, hold by mouth medications, insulin sliding scale, and diabetes management #Hypothyroidism: Continue home medication #GERD: Continue home omeprazole #. Constipation: Continue home regimen #Anxiety and Depression: Continue home alprazolam home. Buspirone DVT prophylaxis: Heparin Code: full Dispo: dc home on increase diuretic dose 06/27 Vital Signs Vital Signs Date Time Temp Pulse Resp B/P (MAP) Pulse Ox O2 Delivery O2 Flow Rate FiO2 06/26/19 12:01 Room Air 06/26/19 12:01 06/26/19 11:19 97.0 88 18 96 Laboratory Data Labs 24H Laboratory Tests 2 06/26/19 11:59: Immature Granulocyte % (Auto) 0.7, Neutrophils (%) (Auto) 81.0H, Lymphocytes (%) (Auto) 11.5L, Monocytes (%) (Auto) 5.6H, Eosinophils (%) (Auto) 1.1, Basophils (%) (Auto) 0.1, Neutrophils # (Auto) 8.7H, Lymphocytes # (Auto) 1.2L, Monocytes # (Auto) 0.6, Eosinophils # (Auto) 0.1, Basophils # (Auto) 0.0, Nucleated Red Blood Cells % (auto) 0.0, Anion Gap 8, Glomerular Filtration Rate 41.2, Lactic Acid Level 2.4*H, Calcium Level 8.2L, Total Bilirubin 0.3, Direct Bilirubin < 0.1, Aspartate Amino Transf (AST/SGOT) 7, Alanine Aminotransferase (ALT/SGPT) 17, Alkaline Phosphatase 94, Total Creatine Kinase 52, Creatine Kinase MB 1.2, Creatine Kinase MB Relative Index 2.31, Troponin I 0.02, WW-Gyo-D-Type Natriuretic Peptide 645H, Total Protein 5.7L, Albumin 2.7L, Albumin/Globulin Ratio 0.90L, Thyroid Stimulating Hormone (TSH) 0.819, Thyroxine (T4) 6.7 CBC/BMP Laboratory Tests 06/26/19 11:59 Microbiology Microbiology 06/26/19 Blood Culture, Received Pending Home Medications Scheduled Allopurinol (Zyloprim) 300 Mg Tab, 300 MG PO QPM Alprazolam (Xanax) 0.5 Mg Tab, 0.5 MG PO BID PATIENT IS TO BEGIN TAPERING DOWN. USING UP THE REST OF THE 0.5MG SCRIPT, THEN IS GOING DOWN TO 0.25MG BID Atorvastatin Calcium (Atorvastatin Calcium) 40 Mg Tab, 40 MG PO QPM Buspirone HCl (Buspirone HCl) 10 Mg Tablet, 10 MG PO BID TAKES NOON AND BEDTIME Calcitriol (Rocaltrol) 0.5 Mcg Cap, 0.5 MCG PO DAILY Ciclopirox Olamine (Ciclopirox) 0.77 % Cre, 1 DOSE TOP BID APPLY TO FEET Docusate Sodium (Docusate Sodium) 100 Mg Cap, 100 MG PO DAILY Ferrous Gluconate (Ferrous Gluconate) 324 Mg Tablet, 324 MG PO DAILY Fluticasone Propionate (Flonase Allergy Relief) 9.9 Ml Kopperl.susp, 2 SPRAY NA DAILY Folic Acid (Folic Acid) 1 Mg Tablet, 1 MG PO QPM Furosemide (Furosemide) 40 Mg Tablet, 40 MG PO BID Gabapentin (Gabapentin) 300 Mg Capsule, 300 MG PO TID Glipizide/Metformin HCl (Glipizide-Metformin 5-500 mg) 1 Tab Tab, 1 TAB PO QPM Insulin Detemir (Levemir) 1 Units/0.01 Ml Susp, 18 UNITS SC DAILY Levothyroxine Sodium (Levoxyl) 150 Mcg Tablet, 150 MCG PO DAILY TAKES AT DINNERTIME Liraglutide (Victoza 2-Neel) 18 Mg/3 Ml Inj, 1.8 MG SC QHS Losartan Potassium (Losartan Potassium) 50 Mg Tab, 50 MG PO DAILY Montelukast Sodium (Montelukast Sodium) 10 Mg Tab, 10 MG PO DAILY Nystatin (Nystatin Powder) 15 Gm Powder, 1 DOSE TOP BID APPLY UNDER BREASTS AND FOLDS Omeprazole (Omeprazole) 40 Mg Cap, 40 MG PO BID Salmeterol/Fluticasone (Advair 500-50 Diskus) 28 Puff/Inhaler Aerp, 1 PUFF INH BID Sennosides/Docusate Sodium (Senna-S Tablet) 1 Tab Tab, 1 TAB PO BID Sertraline Hcl (Zoloft) 100 Mg Tab, 150 MG PO DAILY Umeclidinium Roy (Incruse Ellipta) 62.5 Mcg/Inh Inh, 62.5 MCG INH DAILY Scheduled PRN Albuterol Sulf (Albuterol Sulfate) 2.5 Mg/3 Ml Nebu, 2.5 MG INH QID PRN for SHORTNESS OF BREATH Clotrimazole (Clotrimazole) 10 Mg Taylor, 10 MG PO 5XD PRN for THRUSH Allergies Coded Allergies: Penicillins (Verified Allergy, Intermediate, rash/swelling, 03/19/19) Sulfa (Sulfonamide Antibiotics) (Verified Allergy, Mild, rash, 03/19/19) TAPE (Verified Allergy, Mild, rash/itching, 03/19/19) tramadol (Verified Allergy, Mild, rash, 03/19/19) pioglitazone (Verified Adverse Reaction, Severe, CHF, 03/19/19) exenatide (Verified Adverse Reaction, Mild, vomit, 03/19/19) A-FIB/CHADSVASC A-FIB History Current/History of A-Fib/PAF?: No BERNICE MERINO MD Jun 26, 2019 15:10
[2019-06-26] MEDS ORDERED: DOCUSATE SODIUM 100 MG CAP PO PRN (15:30)
[2019-06-26] MEDS ORDERED: MAG SULF 1GM/100ML (MAG RUN) 1 GM in IV 1 EA IV PRN ×2 (15:30→16:30)
[2019-06-26] MEDS ORDERED: MAALOX 30 ML SUSP *UDC PO PRN (15:30)
[2019-06-26] MEDS ORDERED: MOM 30ML SUSPENSION UDC PO PRN (15:30)
[2019-06-26] MEDS ORDERED: ACETAMINOPHEN TAB 650MG DOSE (2X325MG) PO PRN (15:30)
[2019-06-26] MEDS ORDERED: GABA-843 PO (15:43)
[2019-06-26] MEDS ORDERED: FURO40TA2 PO (15:43)
[2019-06-26] MEDS ORDERED: LEVO150T42 PO (15:43)
[2019-06-26] MEDS ORDERED: FOLI1TAB11 PO (15:43)
[2019-06-26] MEDS ORDERED: FERR32TA PO (15:43)
[2019-06-26] MEDS ORDERED: POTASSIUM CHLORIDE 10 MEQ SR TABLET PO ONE ×3 (16:00→18:00)
[2019-06-26] MEDS ORDERED: NYST1POW9 TOP (16:00)
[2019-06-26] MEDS ORDERED: GLUCAGON FOR INJ 1 MG VIAL (J1610) SC PRN (16:00)
[2019-06-26] MEDS ORDERED: FLON1SPR (16:00)
[2019-06-26] MEDS ORDERED: GLUCOSE 4 GM CHEW TABLET PO PRN (16:00)
[2019-06-26] MEDS ORDERED: DEXTROSE 50% 50 ML SYRINGE IV PRN (16:00)
[2019-06-26 16:44] VITALS: BP 143/61
[2019-06-26] MEDS: FUROSEMIDE 20 MG TAB PO SCH (17:57)
[2019-06-26] MEDS: HumaLOG INSULIN (NovoLOG) PER UNIT SC SCH (17:57)
--- NOTE | 2019-06-26 19:40 | ECGEPIP ---
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
[2019-06-26 19:43] LABS: MAGNESIUM LEVEL 1.3 MG/DL (1.8-2.4)
[2019-06-26] MEDS: ADVAIR HFA 230/21MCG INHALER INH SCH (20:00)
[2019-06-26] MEDS: ENOXAPARIN 40 MG/0.4 ML SYRINGE (J1650) SC SCH (20:42)
[2019-06-26] MEDS: FLUTICASONE PROP 0.05% NASAL SPRAY 16 GM (FLONASE) SCH (20:43)
[2019-06-26] MEDS: NYSTATIN 100,000 UNITS/GM TOPICAL PWD 15 GM TOP SCH (20:43)
[2019-06-26] MEDS: SENOKOT S TAB PO SCH (20:43)
[2019-06-26] MEDS: OMEPRAZOLE 20 MG CAP PO SCH (20:44)
[2019-06-26] MEDS: ALPRAZolam 0.5 MG TAB PO SCH (20:44)
[2019-06-26] MEDS: ALLOPURINOL 300 MG TAB PO SCH (20:44)
[2019-06-26] MEDS: busPIRone 10 MG TAB PO SCH (20:44)
[2019-06-26] MEDS: FOLIC ACID 1 MG TAB PO SCH (20:44)
[2019-06-26] MEDS: ATORVASTATIN 20 MG TAB PO SCH (20:44)
[2019-06-26 22:00] VITALS: BP 163/69
[2019-06-27] MEDS: ALBUTEROL SULFATE 2.5 MG/0.5 ML INH NEB SOLN INH PRN (00:04)
[2019-06-27 06:00] VITALS: BP 138/60
[2019-06-27] MEDS: LEVOTHYROXINE 150MCG TABLET (0.15MG) PO SCH (06:06)
[2019-06-27 06:27] LABS: HEMATOCRIT 28.5 % (36.0-47.0); HEMOGLOBIN 8.6 g/dl (12.0-15.5); MEAN CORPUSCULAR HEMOGLOBIN 27.8 pg (27.0-33.0); MEAN CORPUSCULAR HGB CONC 30.2 g/dl (32.0-36.5); MEAN CORPUSCULAR VOLUME 92.2 fl (80.0-96.0); PLATELET COUNT, AUTOMATED 182 10^3/uL (150-450); RED BLOOD COUNT 3.09 10^6/uL (4.00-5.40); WHITE BLOOD COUNT 11.4 10^3/uL (4.0-10.0)
[2019-06-27 06:45] LABS: CALCIUM LEVEL 8.8 MG/DL (8.8-10.2); CREATININE FOR GFR 1.31 MG/DL (0.55-1.30); GLOMERULAR FILTRATION RATE 42.3 (>39); POTASSIUM SERUM 3.4 MEQ/L (3.5-5.1)
[2019-06-27] MEDS: FUROSEMIDE 20 MG TAB PO SCH ×2 (08:30→17:09)
[2019-06-27] MEDS: FLUTICASONE PROP 0.05% NASAL SPRAY 16 GM (FLONASE) SCH (08:30)
[2019-06-27 08:31] VITALS: BP 167/74
[2019-06-27] MEDS: DOCUSATE SODIUM 100 MG CAP PO SCH (08:31)
[2019-06-27] MEDS: CALCITRIOL 0.25 MCG CAP (S0169) PO SCH (08:31)
[2019-06-27] MEDS: FERROUS GLUCONATE 324 MG TAB PO SCH (08:31)
[2019-06-27] MEDS: SENOKOT S TAB PO SCH ×2 (08:31→20:53)
[2019-06-27] MEDS: MONTELUKAST 10 MG TAB PO SCH (08:31)
[2019-06-27] MEDS: LOSARTAN 50 MG TAB PO SCH (08:31)
[2019-06-27] MEDS: SERTRALINE HCL 50 MG TAB PO SCH (08:31)
[2019-06-27] MEDS: ALPRAZolam 0.5 MG TAB PO SCH ×2 (08:31→20:54)
[2019-06-27] MEDS: busPIRone 10 MG TAB PO SCH ×2 (08:31→20:54)
[2019-06-27] MEDS: HumaLOG INSULIN (NovoLOG) PER UNIT SC SCH ×3 (08:32→17:09)
[2019-06-27] MEDS: GABAPENTIN 300 MG CAP PO SCH (08:32)
[2019-06-27] MEDS: OMEPRAZOLE 20 MG CAP PO SCH ×2 (08:32→20:54)
[2019-06-27] MEDS: LEVEMIR (INSULIN DETEMIR) 1 UNITS/0.01ML SC SCH (08:32)
[2019-06-27] MEDS: NYSTATIN 100,000 UNITS/GM TOPICAL PWD 15 GM TOP SCH ×2 (08:33→20:55)
[2019-06-27] MEDS ORDERED: LEVEMIR (INSULIN DETEMIR) 1 UNITS/0.01ML SC SCH (09:00)
[2019-06-27] MEDS ORDERED: POTASSIUM CHLORIDE 10 MEQ SR TABLET PO ONE (10:30)
[2019-06-27] MEDS ORDERED: MOXIFLOXACIN 400 MG TAB PO ONE (10:30)
[2019-06-27] MEDS: ADVAIR HFA 230/21MCG INHALER INH SCH ×2 (10:53→20:00)
[2019-06-27 14:00] VITALS: BP 139/53
[2019-06-27] MEDS: ALLOPURINOL 300 MG TAB PO SCH (20:53)
[2019-06-27] MEDS: FOLIC ACID 1 MG TAB PO SCH (20:53)
[2019-06-27] MEDS: ATORVASTATIN 20 MG TAB PO SCH (20:54)
[2019-06-27] MEDS: ENOXAPARIN 40 MG/0.4 ML SYRINGE (J1650) SC SCH (20:54)
[2019-06-27 22:00] VITALS: BP 137/74
--- NOTE | 2019-06-27 22:46 | IPN ---
DATE: 06/27/2019 The patient complains of dysphagia to solids and is often dilated by Dr. Triston Messer gastroenterology with history of aspiration. She was eating rice the other day and she choked on it and then developed some discomfort when she was trying to swallow it. The patient says that shortness of breath has subsequently occurred. She otherwise has had coughing fits. No fever or chills. Shortness of breath also ensued. The patient otherwise denies any weight gain. Denies any worsening lower extremity edema, paroxysmal nocturnal dyspnea or two-pillow orthopnea. The patient was being treated for congestive heart failure. Chest x-ray, however, dated 06/13, shows subtle right basilar atelectasis and early infiltrate. The patient has been started on Avelox, awaiting swallow evaluation to rule out recurrent aspiration due to history of dysphagia. Per the patient, she has not had any weight loss. Denies any hematemesis, bright red blood per rectum, melena or black tarry stools. She says that she can wait to make an appointment with Dr. Messer should dilation be required. She had been doing fairly decently at home despite choking on some rice. She remains afebrile and no complaints of chills. Complains of some chest discomfort when she eats, otherwise no sense of feeling of impending doom. VITAL SIGNS: Temperature 98, pulse 90, recovery room 19, blood pressure 138/60, 92% on room air. Generally, the patient is sitting at the bedside. Appears to be comfortable and no use of respiratory accessory muscles. Anicteric. No jaundice. No jugular venous distension or thyromegaly. No use of respiratory accessory muscles. Able to complete her sentences without conversational dyspnea. Lungs are clear to auscultation. Heart: S1, S2. Sinus rhythm. Abdomen is obese, soft, nontender, nondistended. Extremities: No cyanosis or clubbing with trace bilateral lower extremity edema. LABORATORY DATA: White count 11.4, hemoglobin 8.6, hematocrit 28.5, platelet count 182. Sodium 144, potassium 3.4, [id number], bicarbonate 34, BUN 22, creatinine 1.31, glucose of 160. Chest x-ray: Early infiltrates versus atelectasis in the right lower lobe. ASSESSMENT AND PLAN: This is a 73-year-old female with a history of chronic kidney disease, baseline creatinine of 1.5 to 1.8, congestive heart failure, diastolic dysfunction with preserved ejection fraction, chronic obstructive pulmonary disease (COPD) not on home oxygen, obstructive sleep apnea, refused CPAP, morbid obesity, peripheral arterial disease, dyslipidemia, gout, type 2 diabetes, iron deficiency anemia, hypothyroidism, anxiety and depression, osteoarthritis, gout, degenerative joint disease was treated for chronic obstructive pulmonary disease (COPD) exacerbation with tapering dose of steroids as outpatient and two cycles of antibiotics per the patient, presented with worsening shortness of breath. She also complains of dysphagia. Had previously been dilated in the past by Dr. Triston Messer and complains of choking on rice when she was eating and epigastric abdominal pain and feeling that she had choked on something. IMPRESSION: 1. Dysphagia, previous dilation by Dr. Messer. Obtain records from gastroenterology. The patient states that she has not had any weight loss. Denies any coffee ground emesis, hematemesis. Dysphagia is intermittent and usually to solid food. She would prefer outpatient followup. For now, we will obtain swallow evaluation rule out aspiration. 2. Right lower lobe pneumonia versus atelectasis. The patient does complain of cough without fever or chills. The patient had been started on Avelox, swallow evaluation to rule out aspiration. 3. Congestive heart failure with preserved ejection fraction. She does not appear to be volume overloaded. Appears to be euvolemic. She is currently on Lasix 60 mg twice a day. Hypertension on losartan. 4. Chronic iron deficiency anemia. Denies any overt gastrointestinal (GI) bleed, hematemesis, coffee ground emesis or bright red blood per rectum, melena or black tarry stools. Continue on ferrous gluconate. 5. Depression on chronic Zoloft. 6. Type 2 diabetes on Levemir insulin, sliding scale with coverage and consistent carbohydrate diet. 7. Hypothyroidism on chronic Synthroid. 8. Gout on allopurinol. 9. Anxiety on Xanax. 10. Dyslipidemia on chronic Lipitor. 11. Chronic constipation. Has a bowel regimen. 12. Chronic obstructive pulmonary disease (COPD), currently with clear lungs on as needed albuterol. 13. Allergic rhinitis, DISPOSITION: Await swallow evaluation and discharge in the morning if stable. [facility]
[2019-06-27 23:34] VITALS: O2SAT 89
[2019-06-28] MEDS: ALBUTEROL SULFATE 2.5 MG/0.5 ML INH NEB SOLN INH PRN (04:21)
[2019-06-28] MEDS: LEVOTHYROXINE 150MCG TABLET (0.15MG) PO SCH (05:39)
[2019-06-28 05:40] LABS: BASO % 0.1 % (0.0-1.0); EOS # 0.1 10^3/uL (0.0-0.5); HEMATOCRIT 27.7 % (36.0-47.0); HEMOGLOBIN 8.6 g/dl (12.0-15.5); LYMPH # 2.2 10^3/uL (1.5-5.0); MEAN CORPUSCULAR HEMOGLOBIN 28.5 pg (27.0-33.0); MEAN CORPUSCULAR VOLUME 91.7 fl (80.0-96.0); MONO # 0.8 10^3/uL (0.0-0.8); MONO % 7.7 % (0.0-5.0); NEUTROPHILS # 7.2 10^3/uL (1.5-8.5); NEUTROPHILS % 69.7 % (36.0-66.0); PLATELET COUNT, AUTOMATED 157 10^3/uL (150-450); RED BLOOD COUNT 3.02 10^6/uL (4.00-5.40); WHITE BLOOD COUNT 10.3 10^3/uL (4.0-10.0)
[2019-06-28 06:00] VITALS: BP 136/76
[2019-06-28] MEDS ORDERED: MOXIFLOXACIN 400 MG TAB PO SCH (06:00)
[2019-06-28 06:01] LABS: BLOOD UREA NITROGEN 25 MG/DL (7-18); CALCIUM LEVEL 8.7 MG/DL (8.8-10.2); CARBON DIOXIDE LEVEL 32 MEQ/L (21-32); CHLORIDE LEVEL 104 MEQ/L (98-107); CREATININE FOR GFR 1.43 MG/DL (0.55-1.30); GLOMERULAR FILTRATION RATE 38.2 (>39); GLUCOSE, FASTING 166 MG/DL (70-100); POTASSIUM SERUM 3.3 MEQ/L (3.5-5.1); SODIUM LEVEL 142 MEQ/L (136-145)
[2019-06-28] MEDS: HumaLOG INSULIN (NovoLOG) PER UNIT SC SCH ×2 (07:30→12:16)
[2019-06-28] MEDS: ADVAIR HFA 230/21MCG INHALER INH SCH (07:32)
[2019-06-28] MEDS: SENOKOT S TAB PO SCH (08:51)
[2019-06-28] MEDS: MONTELUKAST 10 MG TAB PO SCH (08:51)
[2019-06-28] MEDS: CALCITRIOL 0.25 MCG CAP (S0169) PO SCH (08:51)
[2019-06-28] MEDS: ALPRAZolam 0.5 MG TAB PO SCH (08:51)
[2019-06-28] MEDS: OMEPRAZOLE 20 MG CAP PO SCH (08:51)
[2019-06-28] MEDS: DOCUSATE SODIUM 100 MG CAP PO SCH (08:51)
[2019-06-28] MEDS: SERTRALINE HCL 50 MG TAB PO SCH (08:51)
[2019-06-28] MEDS: busPIRone 10 MG TAB PO SCH (08:52)
[2019-06-28] MEDS: LOSARTAN 50 MG TAB PO SCH (08:52)
[2019-06-28] MEDS: FERROUS GLUCONATE 324 MG TAB PO SCH (08:52)
[2019-06-28] MEDS: LEVEMIR (INSULIN DETEMIR) 1 UNITS/0.01ML SC SCH (08:53)
[2019-06-28] MEDS: NYSTATIN 100,000 UNITS/GM TOPICAL PWD 15 GM TOP SCH (08:53)
[2019-06-28] MEDS: FLUTICASONE PROP 0.05% NASAL SPRAY 16 GM (FLONASE) SCH (08:53)
[2019-06-28] MEDS: GABAPENTIN 300 MG CAP PO SCH (08:55)
[2019-06-28] MEDS: FUROSEMIDE 20 MG TAB PO SCH (08:56)
[2019-06-28 09:00] VITALS: O2SAT 94
[2019-06-28] MEDS ORDERED: POTASSIUM CHLORIDE 10 MEQ SR TABLET PO ONE (09:00)
--- NOTE | 2019-06-28 09:43 | NOCOX ---
DATE OF PROCEDURE: 06/26/2019 Study was performed on room air. Total valid sampling time was 9 hours and 5 minutes. The highest oxygen saturation was 100%. The lowest was 81%. The heart rate varied from a pulse of 105 to 74. The total time spent with oxygen saturation less than 88% was 5 minutes and 52 seconds. Graphically, there appeared to be mild heart rate variability with some few episodes of oxygen saturation variability. IMPRESSION: Abnormal nocturnal oximetry study. The patient qualifies for nocturnal supplemental oxygen. There were a few episodes of oxygen saturation variability. If there is clinical suspicion of sleep apnea, would refer patient for more formal sleep testing.
[2019-06-28] MEDS ORDERED: E-Z-PAQUE 96% w/w SUSP 176GM BTL As Ordered ONE (09:45)
[2019-06-28] MEDS ORDERED: E-Z-GAS II EFFERVESCENT PACKET (SODIUM BICARB./CITRIC ACID/SIMETHICONE) As Ordered ONE (09:45)
[2019-06-28] MEDS ORDERED: E-Z-HD 98% w/w 340GM SUSP BTL As Ordered ONE (09:45)
--- NOTE | 2019-06-28 09:48 | NOCOX ---
DATE OF PROCEDURE: 06/28/2019 Study was performed initially on room air. The patient was later placed on 1 liter nasal cannula towards the end of the study. The total valid sampling time was 4 hours and 44 minutes. The oxygen saturations ranged from a high of 100 to a low of 78%. The heart rate ranged from 113 to 82. Total time spent with an oxygen saturation less than 88% was 55 minutes. There was a desaturation event index of 15.9. Graphically, she was noted to have periods of oxygen saturation variability later on in the evening as well as some mild heart rate variability. IMPRESSION: Abnormal nocturnal oximetry study. The patient qualifies for supplemental oxygen at night. She did have increased oxygen saturation variability later on in the evening with some episodes of periodic desaturations. If there is a clinical suspicion for sleep apnea, would refer patient for more formal sleep testing.
[2019-06-28 09:50] LABS: CK-MB VALUE MASS < 1.0 NG/ML (<3.6); CPK CREATINE PHOSPHOKINASE 33 U/L (26-192); MB/CK RELATIVE INDEX 3.03 (< OR =4); NT-PRO BNP 372 PG/ML (<125); TROPONIN I < 0.02 NG/ML (< 0.10)
--- NOTE | 2019-06-28 12:16 | REP ---
Clinical: Shortness of breath. Technique: PA and lateral. Comparison: 06/26/2019. Findings: Right basilar atelectasis and small right pleural reaction may be slightly increased from prior examination. Remainder of lung marshall are well-aerated and clear. Mediastinum and cardiac silhouette within normal limits. Skeletal structures stable. Impression: Subtle right basilar atelectasis and small pleural reaction slightly increased from prior examination. Electronically Signed by Roland Graham MD 06/28/2019 10:00 A
[2019-06-28] MEDS ORDERED: LEVA750T7 PO (13:29)
[2019-06-28] MEDS ORDERED: BACITAB PO (13:29)
[2019-06-28 14:00] VITALS: BP 130/60
--- NOTE | 2019-06-28 22:23 | ECHO ---
DATE OF PROCEDURE: 06/28/2019 Date of : 1945 Age: 73 REFERRING PHYSICIAN: Jany Leigh MD PATIENT LOCATION: Room 4234 REASON FOR ECHOCARDIOGRAM: Shortness of breath. 2D MEASUREMENTS: IVS: 1.1 cm LV: 4.0 cm LVPW: 1.3 cm LA: 3.8 cm Aorta: 2.9 cm IVC: 1.8 cm DOPPLER MEASUREMENTS: Peak velocity across the aortic valve: 2.1 m/s Peak velocity across the LVOT: 0.9 m/s Mitral E: 1.0, Mitral A: 1.4, with a ratio of 0.8 Maximum tricuspid valve velocity: 3.0 m/s 2D COMMENTS: 1. Subjectively, mildly increased left ventricular wall thickness with normal left ventricular size and normal global left ventricular systolic function. The estimated left ventricular systolic ejection fraction is 60-65%. 2. Normal left atrium. Normal right atrium and right ventricle. 3. The atrial septum appeared to be normal without evidence of defect or shunt. 4. Normal aortic root. 5. No pericardial effusion seen. 6. Mildly to moderately calcified aortic valve with minimally restricted leaflet motion. There was an echogenic structure of about 0.8 x 0.5 cm on the aortic valve on the left ventricular side from unclear etiology. Mildly calcified mitral annulus and the tip of the anterior mitral valve leaflet is also calcified, but mobile. Normal tricuspid valve. The pulmonic valve and proximal pulmonary artery branches were not well visualized. 7. The inferior vena cava was normal in size, central venous pressure is most likely normal. DOPPLER: It detects mild mitral regurgitation and mild to moderate tricuspid regurgitation. The calculated pulmonary artery systolic pressure varies between 40-50 mmHg. Abnormal relaxation pattern was noted across the mitral valve leaflets as well as the mitral valve annulus consistent with features of grade 1 left ventricular diastolic dysfunction. IMPRESSION 1. Normal global left ventricular systolic function with probably mild concentric left ventricle hypertrophy. There is some features of grade 1 left ventricular diastolic dysfunction manifested by abnormal relaxation. 2. Aortic valve sclerosis with mild aortic stenosis but no aortic regurgitation. 3. Mitral annulus calcification with mild mitral regurgitation, but no mitral stenosis. The left atrium appeared to be normal in size. 4. Mild to moderate tricuspid regurgitation with probably moderate pulmonary hypertension. 5. Echogenic structure was noted on the left ventricular side of the aortic valve for unclear etiology. The patient might benefit from a transesophageal echocardiogram.
--- NOTE | 2019-06-29 20:24 | DSES ---
DATE OF ADMISSION: 06/27/2019 DATE OF DISCHARGE: 06/28/2019 PRIMARY DISCHARGE DIAGNOSES: 1. Right lower lobe pneumonia. 2. Persistent dysphagia to solids, currently on mechanical soft diet, level 3 with thin liquids. 3 Obstructive sleep apnea. 4. Chronic iron deficiency anemia. 5. Congestive heart failure with preserved ejection fraction. 6. Depression. 7. Type 2 diabetes. 8. Hypothyroidism. 9. Gout. 10. Anxiety. 11. Dyslipidemia. 12. Chronic constipation. 13. Chronic obstructive pulmonary disease. 14. Congestive heart failure exacerbation. 15. Diastolic dysfunction. 16. Chronic kidney disease, stage 3. DISCHARGE MEDICATIONS: - Levaquin 750 mg daily for 4 days - Bacid one tablet by mouth twice a day with meals for 4 days Patient may be resumed on all her home medications. - albuterol four times a day as needed - allopurinol 300 daily - Xanax 0.5 twice a day - atorvastatin 40 every evening - buspirone 10 mg twice a day - calcitriol 0.5 mcg daily - ciclopirox one dose topically twice a day - clotrimazole 10 mg 5 days as needed for thrush - Colace 100 daily - ferrous gluconate 324 daily - fluticasone two sprays daily - folic acid 1 mg daily - Lasix 40 mg twice a day - gabapentin 300 mg three times a day - glipizide/metformin one tablet every evening - Levemir insulin 18 units subcutaneous daily - Levoxyl 150 mcg daily - Victoza 1.8 mg at bedtime - losartan 50 daily - montelukast 10 mg daily - nystatin topically twice a day - Prilosec 40 twice a day - Advair one puff inhaled twice a day - Senokot one tablet twice a day - Zoloft 150 daily - Incruse Ellipta 62.5 mcg inhaled daily FOLLOWUP INSTRUCTIONS: 1. Patient is to have home oxygen at bedtime due to obstructive sleep apnea. 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 2. For dysphagia which is persistent, she is to call Dr. Messer for dilation and further evaluation with monometry as needed. 3. Congestive heart failure (CHF)/diastolic dysfunction. Fluid restriction, 2 liters daily, and daily weights. Call your doctor for more than 2 pounds weight gain at home. HOSPITAL COURSE: This is a 73-year-old female who presented to the emergency room with worsening shortness of breath and dysphagia. She was felt to have congestive heart failure exacerbation. Was given intravenous Lasix in the emergency room and increase in her dose of Lasix. Patient's admission weight was 99.55 kg. Discharge weight of 97.5 kg. Patient was diuresed. Chest x-ray on admission 06/26/2019 showed subtle right basilar atelectasis or early infiltrate, and she was started on Avelox 400 daily. Remained afebrile with improvement int he cough. White count was 11.4 and decreased to 10.3 on the day of discharge. She was also found to have anemic with low potassium level, which was further evaluated. She did receive potassium prior to discharge. Her anemia was chronic and did not require blood transfusion. Remained stable at 8.6 hemoglobin and hematocrit of 27-28.5. Patient complained of dysphagia. Evaluated with swallow therapist at the bedside, recommending mechanical soft diet, level 3, with thin liquids. Modified barium swallow was ordered prior to discharge. Patient says that she had dilation done by Dr. Messer in 2018 but had a negative esophagogastroduodenoscopy (EGD). Due to complaints of increased sleepiness, nocturnal oximetry was performed, which showed that the patient is eligible for nighttime oxygen. Patient did not want to be treated with CPAP previously with Dr. Barron's recommendations, and at that time she recalls having a conversation that untreated she will have more problems in the future. Patient is now open to oxygen at night. PHYSICAL EXAMINATION ON DISCHARGE: Temperature 98.5, pulse 94, respiratory rate 18, blood pressure 136/76, 93% on 0.5 liters of oxygen, 89% on room air. GENERAL: Awake, alert, oriented times three. No conversational dyspnea. She has faint expiratory wheezing. HEART: S1, S2, sinus rhythm. ABDOMEN: Soft, nontender, nondistended. EXTREMITIES: No cyanosis, clubbing. Trace bilateral lower extremity edema. LABORATORY DATA: White count 10.3, hemoglobin 8.6, hematocrit 27.7, platelets 157. Sodium 142, potassium 3.3, chloride 104, bicarbonate 32, BUN 25, creatinine 1.43, glucose 166. BNP is 372. Chest x-ray on 06/28/2019: Right basilar atelectasis. Remainder of the lung marshall are well aerated and clear. Mediastinum and cardiac silhouette within normal limits. Skeletal structures are stable. TIME SPENT ON HOSPITAL DISCHARGE: 30 minutes.
--- NOTE | 2019-06-30 08:44 | REP ---
Examination Requested: Esophagram Barium Swallow Reason For Exam/Comment: Dysphasia to solids Esophagram: The procedure was performed ADRIANA Goodwni, under the direct supervision of Dr. Graham. The images were reviewed with Dr. Graham. The two-view chest x-ray done directly prior to the exam was used as the refrigerating engineer film. Liquid barium and gas producing granules were given in the erect position as well as liquid barium in the prone oblique position, in order to perform a double contrast esophagram examination. Oral and pharyngeal stages of the examination demonstrated aspiration without a cough response. The exam was immediately aborted. Impression: 1. Aspiration with no cough response. 0.0 minutes of fluoroscopy time was utilized for this procedure. Some fluoroscopic images are performed with last image hold technology. These images require no additional radiation. Reviewed by ADRIANA Yuan 06/28/2019 11:37 A Electronically Signed by Roland Graham MD 06/30/2019 08:34 A
== END 2019-06-28 14:12 | disposition home or self-care (01) | DRG 291 ==
LOC: M ED 11:19 → M ED INP 11:20 → M MSPAV 16:44 → OBSVTOIN 06-27 10:23
PROVIDERS: ADMIT Family Medicine; ATTEND General Practice
DX: I13.0 Hypertensive heart and chronic kidney disease with heart failure and stage 1 through stage 4 chronic kidney disease, or unspecified chronic kidney disease (principal); J18.9 Pneumonia, unspecified organism; I50.33 Acute on chronic diastolic (congestive) heart failure; Z68.41 Body mass index [BMI] 40.0-44.9, adult; R13.10 Dysphagia, unspecified; G47.33 Obstructive sleep apnea (adult) (pediatric); D50.9 Iron deficiency anemia, unspecified; F32.9 Major depressive disorder, single episode, unspecified; E11.22 Type 2 diabetes mellitus with diabetic chronic kidney disease; E03.9 Hypothyroidism, unspecified; M10.9 Gout, unspecified; F41.9 Anxiety disorder, unspecified; E78.5 Hyperlipidemia, unspecified; K59.09 Other constipation; J44.9 Chronic obstructive pulmonary disease, unspecified; N18.3 Chronic kidney disease, stage 3 (moderate); E66.01 Morbid (severe) obesity due to excess calories; I73.9 Peripheral vascular disease, unspecified; M19.90 Unspecified osteoarthritis, unspecified site; J30.9 Allergic rhinitis, unspecified

== ENCOUNTER → 2019-07-10 | Outpatient (CLI) | payer MEDICARE, MEDICAID ==
[~2019-07-10] MED LIST changes: +BACITAB PO; +FLON1SPR; +LEVA750T7 PO; +LEVO150T42 PO
--- NOTE | 2019-07-10 14:30 | REP ---
BILATERAL LOWER EXTREMITY DUPLEX DOPPLER ARTERIAL ULTRASOUND: Real-time ultrasound evaluation and duplex Doppler interrogation of bilateral lower extremity arterial systems is performed and compared to prior study 12/02/2018. Moderate scattered plaquing is again seen bilaterally diffusely. There is again evidence of significant stenosis of the proximal right anterior tibial artery with elevated peak systolic velocity. There is elevated peak systolic velocity in the proximal left anterior tibial artery and stenosis at that location cannot be excluded. Diffuse biphasic and triphasic waveforms are seen bilaterally. PEAK SYSTOLIC VELOCITY RIGHT LEFT Common femoral artery 179.3 cm/s 174.2 cm/s Profunda 126.8 162.0 Proximal SFA 146.2 167.4 Superficial femoral artery mid 103.4 124.4 Superficial femoral artery distal 77.9 90.3 Popliteal 86.8 116.4 Proximal anterior tibial artery over 400.0 203.4 Tibioperoneal trunk 129.6 63.9 Proximal posterior tibial artery 84.8 68.3 Distal posterior tibial artery 128.8 93.1 Distal anterior tibial artery 215.0 153.4 IMPRESSION: Similar findings to prior exam. Moderate diffuse plaquing and narrowing. There is again evidence of stenosis proximal right MASHA. There is possible stenosis of the proximal left MASHA. Electronically Signed by Fahad Baker MD 07/10/2019 03:55 P
== END ==
LOC: M RAD 12:20
PROVIDERS: ATTEND Physician Assistant
DX: I70.213 Atherosclerosis of native arteries of extremities with intermittent claudication, bilateral legs (principal)

== ENCOUNTER → 2019-07-12 | Outpatient (CLI) | payer MEDICARE, MEDICAID ==
--- NOTE | 2019-07-28 02:22 | ECWPNPC ---
PATIENT NAME: YESICA JACKSON : 1945 GENDER: FEMALE VISIT DATE: 07/12/2019 DISCHARGE DATE: 07/12/19 1508 VISIT LOCKED DATE TIME: PHYSICIAN: LUCAS LOZANO RESOURCE: LUCAS LOZANO REASON FOR APPOINTMENT 1. 2 MONTHS HISTORY OF PRESENT ILLNESS HISTORY OF PRESENT ILLNESS: HERE FOR F/U OF CHRONIC LOW BACK PAIN.RATING PAIN VAS 0-6/10.RECENT HOSPITALIZATION FOR CHF /PNEUMONIA.WILL BE SEEING DR LOUIS Q6 MONTHS.DISCUSSED CONSERVATIVE TREATMENT FOR CHRONIC LOW BACK PAIN. PAIN THE PATIENT DESCRIBES THE PAIN... FALL RISK SCREENING: SCREENING :NO FALLS REPORTED IN THE LAST YEAR CURRENT MEDICATIONS TAKING XANAX 0.5 MG TABLET 1 TABLET ORALLY TWICE A DAY TAKING ZOLOFT 100 MG TABLET 1 AND 1/2 TABLET ORALLY ONCE A DAY TAKING CICLOPIROX OLAMINE 0.77 % CREAM 1 APPLICATION TO AFFECTED AREA EXTERNALLY TWICE A DAY NEEDED TAKING LIDOCAINE HCL 5 % OINTMENT APPLY TO RIGHT KNEE AND THIGH EXTERNALLY 3-4 TIMES A DAY NEEDED FOR PAIN TAKING CYANOCOBALAMIN 1000 MCG TABLET 1 TABLET ORALLY ONCE A DAY TAKING VENTOLIN HFA 108 (90 BASE) MCG/ACT AEROSOL SOLUTION 2 PUFFS INHALATION EVERY 4 HOURS NEEDED FOR SOB, COUGH, WHEEZE TAKING GABAPENTIN 300 MG CAPSULE 1 CAPSULE ORALLY THREE TIMES DAILY TAKING NYSTATIN 404151 UNIT/GM POWDER 1 APPLICATION TO AREA UNDER BREAST EXTERNALLY TWICE A DAY TAKING MAY HAVE - - HAND RAIL BY TOILET _ DAILY. DX: M19.90 TAKING LEVOTHYROXINE SODIUM 150 MCG TABLET 1 TABLET ON AN EMPTY STOMACH IN THE MORNING ORALLY ONCE A DAY TAKING LASIX 40 MG TABLET 1 TAB ORALLY TWICE DAILY TAKING CLOTRIMAZOLE 10 MG LOZENGE 1 CLINT MOUTH/THROAT FIVE TIMES A DAY NEEDED TAKING VICTOZA 18 MG/3ML SOLUTION PEN-INJECTOR 1.8MG SUBCUTANEOUS ONCE A DAY, NOTES: 04/11 2100 TAKING LEVEMIR FLEXTOUCH 100 UNIT/ML SOLUTION PEN-INJECTOR 18 UNITS SUBCUTANEOUS DAILY--TAKE IN THE AM, NOTES: 04/11 0900 TAKING INCRUSE ELLIPTA 62.5 MCG/INH AEROSOL POWDER BREATH ACTIVATED 1 PUFF INHALATION ONCE A DAY TAKING ALBUTEROL SULFATE (2.5 MG/3ML) 0.083% NEBULIZATION SOLUTION 3 ML NEEDED INHALATION EVERY 4 HOURS NEEDED FOR SOB/COUGH/WHEEZE TAKING BUSPIRONE HCL 10 MG TABLET 1 TABLET ORALLY TWICE A DAY TAKING SINGULAIR 10 MG TABLET 1 TABLET IN THE EVENING ORALLY ONCE A DAY TAKING LOSARTAN POTASSIUM 50 MG TABLET 1 TABLET ORALLY ONCE A DAY TAKING LANCETS _ MISCELLANEOUS DIRECTED DX: E11.21 FOUR TIMES A DAY TAKING BLOOD GLUCOSE TEST STRIP _ STRIP ONE TOUCH ULTRA 2 IN VITRO, DX: E11.21 FOUR TIMES A DAY TAKING GLIPIZIDE-METFORMIN HCL 5-500 MG TABLET 1 TABLET ORALLY DAILY AT SUPPER TAKING FERROUS GLUCONATE 324 (38 FE) MG TABLET 1 TABLET ORALLY EVERY OTHER DAY TAKING ADVAIR DISKUS 500-50 MCG/DOSE AEROSOL POWDER BREATH ACTIVATED 1 PUFF INHALATION TWICE A DAY TAKING COLACE 100 MG CAPSULE 1 CAPSULE ORALLY ONCE A DAY TAKING DEPEND PANT EXTRA LARGE 1 EA UNDERGARMENTS EXTRA LARGE. WEIGHT-217 POUNDS, HEIGHT 62 INCHES DX: R32 DAILY TAKING PEN NEEDLES 3/16" 31G X 5 MM MISCELLANEOUS BD ULTRA FINE SUBCUTANEOUSLY TWICE A DAY DX: E11.9 TAKING FLONASE 50 MCG/ACT SUSPENSION 2 SPRAYS IN EACH NOSTRIL NASALLY ONCE A DAY TAKING FOLIC ACID 1 MG TABLET 1 TABLET ORALLY ONCE A DAY TAKING ALLOPURINOL 300 MG TABLET 1 TABLET ORALLY ONCE A DAY, NOTES: 04/09/19 TAKING OMEPRAZOLE 40 MG CAPSULE DELAYED RELEASE 1 CAPSULE ORALLY TWICE A DAY TAKING LIPITOR 40 MG TABLET 1 TABLET ORALLY ONCE A DAY TAKING CALCITRIOL 0.5 MCG CAPSULE 1 CAPSULE ORALLY ONCE A DAY TAKING SENNA S 8.6-50 MG TABLET 2 TABLET ORALLY TWICE A DAY MEDICATION LIST REVIEWED AND RECONCILED WITH THE PATIENT PAST MEDICAL HISTORY CONTROLLED 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 CHRONIC KIDNEY DISEASE, STAGE 3 (MODERATE) HYPOTHYROIDISM, UNSPECIFIED HYPERCHOLESTEROLEMIA ANEMIA IN OTHER CHRONIC DISEASES CLASSIFIED ELSEWHERE CHRONIC OBSTRUCTIVE PULMONARY DISEASE, UNSPECIFIED OTHER DIABETIC NEUROLOGICAL COMPLICATION ASSOCIATED WITH TYPE 2 DIABETES MELLITUS LOCALIZED EDEMA GASTRO-ESOPHAGEAL REFLUX DISEASE WITHOUT ESOPHAGITIS SLEEP APNEA, UNSPECIFIED DYSTHYMIC DISORDER GOUT, UNSPECIFIED VITAMIN D DEFICIENCY, UNSPECIFIED ESOPHAGEAL OBSTRUCTION GASTROPARESIS PSEUDOGOUT PRIMARY OSTEOARTHRITIS, RIGHT HAND B12 DEFICIENCY PRIMARY OSTEOARTHRITIS OF LEFT HAND RIGHT LUMBAR RADICULOPATHY INFECTION RIGHT HAND FROM CAT BITE ALLERGIES ACTOS: CHF - ALLERGY PENICILLIN (FOR ALLERGIES USE ONLY): RASH - ALLERGY BYETTA 10 MCG PEN: VERY SICK - ALLERGY TRAMADOL: ITCH - ALLERGY SULFA (FOR ALLERGY USE ONLY): ITCH - ALLERGY SURGICAL HISTORY BILATERAL HIP OPERATIONS ON SIX DIFFERENT OCCASIONS, INITIALLY STARTING AT AGE 10 WHEN SHE HAD SLIPPED CAPITAL FEMORAL EPIPHYSES AGE 10 TUBAL LIGATION IN THE 1969'S 06/22/1972 LEFT KNEE REPLACED 2000? C-SPINE DISCECTOMY AND DONOR GRAFT AT C5 2001 HYSTERECTOMY WITH BLADDER REPAIR FOR VAGINAL BLEEDING 2003 HERNIA REPAIR, REPAIR OF THREE DIFFERENT ABDOMINAL HERNIAS RIGHT CARPAL TUNNEL SURGERY AND RIGHT ULNAR NERVE TRANSPOSITION 2004 COLONOSCOPY 2008 LEFT NIPPLE BREAST BIOPSY 2008 COLONOSCOPY 2009 COLONOSCOPY 2012 LEFT SHOULDER REPLACEMENT 10/27/2013 LAPAROSCOPIC CHOLECYSTECTOMY 07/21/2016 BILATERAL CATARACT SURGERY-DR. GAMBOA 06/09 AND 06/16/2017 UPPER ENDOSCOPY WITH ESOPHAGEAL DILATION 10/2017 FAMILY HISTORY FATHER: 70 YRS MOTHER: 83 YRS 3 SON(S) , 1 DAUGHTER(S) . FATHER OF CVA\\\\\\\\\\\\\\\\NMOTHER OF COMPLICATIONS OF DIABETES\\\\\\\\\\\\\\\\N4 SIBLINGS, AT LEAST 2 ARE DIABETIC1 SON ARTHRITIS, PACEMAKER1 SON LEUKEMIA THAT IS IN REMISSION1 SON BACK PROBLEMSDAUGHTER-NOT SURE OF HISTORY. SOCIAL HISTORY GENERAL: TOBACCO USE ARE YOU A:FORMER SMOKER HOW LONG HAS IT BEEN SINCE YOU LAST SMOKED?> 10 YEARS HIV / HEP-C SCREENING HIV TEST OFFERED TO PATIENT:YES DATE OFFERED:11/01/2017 TEST ACCEPTED:NO HEP-C TEST OFFERED TO PATIENT:YES DATE OFFERED:11/01/2017 REASON:PATIENT DECLINED TEST ACCEPTED:NO REASON:PATIENT DECLINED BROCHURE PROVIDED TO PATIENTYES HOUSING: RENTS APARTMENT. EDUCATION LEVEL OF EDUCATION:FINISHED HIGH SCHOOL DIET: REGULAR. LANGUAGE LANGUAGES SPOKEN:TAIWANESE DOMESTIC VIOLENCE DO YOU FEEL SAFE IN YOUR ENVIRONMENT?YES BMI CARE GOAL FOLLOW-UP ABOVE NORMAL BMI FOLLOW-UPDIETARY MANAGEMENT EDUCATION, GUIDANCE, AND COUNSELING RECREATIONAL DRUG USE DRUG USE?NO EXERCISE: NO REGULAR EXERCISE. LEARNING BARRIERS / SPECIAL NEEDS CHANGE FROM LAST VISIT?NO BARRIERS TO LEARNING?NO HEARING IMPAIRED?NO VISION IMPAIRED?YES COGNITIVELY IMPAIRED?NO :CORRECTIVE LENSES READINESS TO LEARN?YES LEARNING PREFERENCES?NO LEARNING CAPABILITIES PRESENT?YES EMOTIONAL BARRIERS?NO SPECIAL DEVICES?YES :CANE, WALKER, WHEELCHAIR TEAROOM HOST/HOSTESS NEEDED?NO PAIN CLINIC PFS, CLERGY, PUBLIC HEALTH REFERRALS WAS THE PROVIDER NOTIFIED OF ANY PERTINENT INFO?YES HAS THE PATIENT BEEN EDUCATED REGARDING HIS/HER PLAN OF CARE?YES HAS THE PATIENT BEEN EDUCATED REGARDING PAIN, THE RISK FOR PAIN, THE IMPORTANCE OF EFFECTIVE PAIN MANAGEMENT, AND THE PAIN ASSESSMENT PROCESS?YES LATEX QUESTIONNAIRE LATEX ALLERGY : HAVE YOU EVER DEVELOPED ANY TYPE OF REACTION AFTER HANDLING LATEX PRODUCTS SUCH RUBBER GLOVES, CONDOMS, DIAPHRAGMS, BALLOONS, SOCKS, OR UNDERWEAR?NO LATEX ALLERGY : HAVE YOU EVER DEVELOPED ANY TYPE OF REACTION DURING OR AFTER DENTAL APPOINTMENT, VAGINAL/RECTAL EXAMINATION, SURGICAL PROCEDURE, OR ANY OTHER EXPOSURE?NO LATEX RISK : HAVE YOU EVER HAD ANY DIFFICULTY BREATHING OR HIVES AFTER EATING OR HANDLING ANY FRUITS, OR VEGETABLES; SUCH KIWI, BANANAS, STONE FRUITS, OR CHESTNUTSNO LATEX RISK : DO YOU HAVE A PREVIOUS PERSONAL HISTORY OF MORE THAN NINE SURGERIES, SPINA BIFIDA, OR REPEATED CATHERIZATIONS? YES - PLEASE INDICATE : > 9 SURGERIES LATEX RISK : ARE YOU FREQUENTLY EXPOSED TO LATEX PRODUCTS IN YOUR OCCUPATION?NO DATE ASKED : 07/12/2019 CAFFEINE CAFFEINE USE?YES HOW OFTEN AND HOW MUCH? COFFEE ADVANCE DIRECTIVE ADVANCE DIRECTIVE DISCUSSED WITH PATIENT:YES HAS HCP-SPOUSE - LUIS YOUSSEFRATH - [phone], SON - MAGUI JACKSON RELIGIOUS RELIGIOUS NO CATHOLIC BELIEFS THAT WOULD IMPACT HEALTH CARE. MARITAL STATUS: WITH 4 CHILDREN. 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 SEXUAL HX HAD SEX IN THE LAST 12 MONTHS (VAGINAL, ORAL, OR ANAL)?NO HAVE YOU EVER HAD AN STD?NO REVIEWED WITH PT -- BVREVIEWED WITH PT 11/30/18 1315 LAS04/12/19 REVIEWED WITH PT. ADREVIEWED WITH PT 05/03/19 1129 NLJREVIEWED WITH PATIENT 07-12-19 DS. HOSPITALIZATION/MAJOR DIAGNOSTIC PROCEDURE PANCREATITIS 12/12/2015 [facility] ER- CHOLECYSTITIS-CHRONIC 06/01/2016 CARE IN [place]-URI 07/2017 [facility] HOSPITAL-RIGHT LUMBAR RADICULOPATHY 02/26-03/02/2018 [facility]-RLL PNEUMONIA, COPD 06/27-06/28/2019 REVIEW OF SYSTEMS REVIEWED BY: PROVIDER: LUCAS BILLINGSLEY . CONSTITUTIONAL: ANY CHANGE IN YOUR MEDICAL CONDITION? YES, PT WAS HOSPITALIZED AT [facility] FOR CHF AND PNEUMONIA, PT WAS DISCHARGED AFTER 3 DAYS, PT HAS AN APPT WITH CARDIOLOGY MD TO EVALUATE HEART STATUS. DS . CHILLS NO . FEVER NO . INFECTION: DO YOU HAVE NEW INFECTIONS? YES . DO YOU HAVE HISTORY OF MRSA? NO . MUSCULOSKELETAL: ANY NEW PATTERNS OF PAIN OR NUMBNESS? NO . GASTROENTEROLOGY: ANY NEW CHANGE IN BOWEL CONTROL? NO . GENITOURINARY: ANY NEW CHANGE IN BLADDER CONTROL? NO . IS THERE A CHANCE YOU COULD BE ? NO . HEMATOLOGY/LYMPH: DO YOU TAKE ANY BLOOD THINNERS? (FOR EXAMPLE- COUMADIN, PLAVIX, AGGRENOX, PLATEL, PRADAXA, OR XARELTO) NO . WHEN WAS YOUR LAST DOSE? DATE: TIME: . NEUROLOGY: HAVE YOU FALLEN IN THE PAST 12 MONTHS? NO . ANY NEW EXTREMITY NUMBNESS OR WEAKNESS? NO . CARDIOLOGY: DO YOU HAVE A PACEMAKER OR DEFIBRILLATOR? NO . RESPIRATORY: HAVE YOU BEEN SICK IN THE PAST WEEK? NO . FEVER NO . FLU LIKE SYMPTOMS? NO . COUGH NO . INTEGUMENTARY: DO YOU HAVE ANY RASHES OR OPEN SORES? NO . ALLERGIC/IMMUNO: ARE YOU ALLERGIC TO IV DYE? NO . ANY NEW ALLERGIES? NO . PSYCHIATRIC: DO YOU HAVE THOUGHTS OF HURTING YOURSELF OR SOMEONE ELSE? NO . ARE YOU ABUSED, NEGLECTED, OR IN AN UNSAFE ENVIRONMENT? NO . ENDOCRINOLOGY: ARE YOU DIABETIC? YES, FSBS 07/12 129 . OTHER: DO YOU NEED ANY PRESCRIPTIONS? NO . IF YES, PLEASE LIST: ____ . ANY NEW PROBLEMS WITH YOUR MEDICATIONS? NO . WHEN DID YOU LAST EAT? ____ . WHEN DID YOU LAST DRINK? ____ . WHAT DID YOU LAST DRINK? ____ . NAME OF PERSON DRIVING YOU HOME? ____ . DO YOU HAVE ANY OTHER QUESTIONS OR CONCERNS NO . VITAL SIGNS WT 222.6 LBS, HT 62 IN, BMI 40.71 INDEX, BP 147/67 MM HG, HR 88 /MIN, RR 18 /MIN, TEMP 96.6 F, OXYGEN SAT % 98%, BLOOD GLUCOSE LEVEL 126, SAFE IN ENV? (Y/N) Y, NA INITIALS AW 1425, REVIEWED BY: MARIAM. EXAMINATION GENERAL EXAMINATION: GENERALAWAKE,ALERT ,PLEAASANT . PSYCHAFFECT NORMAL . LUNGS:LUNG QUESADA ARE CLEAR TO AUSCULTATION BILATERALLY. GOOD MOVEMENT OF AIR . HEART:S1, S2 IN A REGULAR RATE AND RHYTHM. NO SIGNIFICANT MURMURS, RUBS OR GALLOPS NOTED . ASSESSMENTS SACROILIITIS, NOT ELSEWHERE CLASSIFIED - M46.1 (PRIMARY) TREATMENT SACROILIITIS, NOT ELSEWHERE CLASSIFIED NOTES: RECOMMEND TYLENOL 650MG 2 TAB AM AND PMWILL REEVALUATE FOR INJECTION THERAPY ONCE MEDICALLY STABILIZED. PREVENTIVE MEDICINE PAIN CLINIC TEACHING: MEDICATIONS DISCUSSED TYLENOL WITH PT AND DISTRIBUTED WRITTEN EDUCATION MATERIAL WITH, PT ACKNOWLEDGED UNDERSTANDING. DS. PROCEDURE CODES FA211 ESTABILISHED PATIENT [facility] CHARGE DISPOSITION & COMMUNICATION FOLLOW UP 2 MONTHS ELECTRONICALLY SIGNED BY ANALILIA APONTE ON 07/27/2019 AT 10:42 AM EST DISCLAIMER : THIS IS A VISIT SUMMARY EXTRACTED FROM THE [employer] CHART. IT IS NOT A COPY OF THE [employer] PROGRESS NOTE. MATHEW
== END ==
LOC: M PAIN 14:15
PROVIDERS: ATTEND Nurse Practitioner Family
DX: M46.1 Sacroiliitis, not elsewhere classified (principal); G89.29 Other chronic pain; E11.21 Type 2 diabetes mellitus with diabetic nephropathy; E03.9 Hypothyroidism, unspecified; E78.00 Pure hypercholesterolemia, unspecified; D50.9 Iron deficiency anemia, unspecified; K21.9 Gastro-esophageal reflux disease without esophagitis; G47.30 Sleep apnea, unspecified; Z96.652 Presence of left artificial knee joint; Z96.612 Presence of left artificial shoulder joint; Z87.891 Personal history of nicotine dependence; Z88.0 Allergy status to penicillin; Z88.2 Allergy status to sulfonamides; Z88.5 Allergy status to narcotic agent; Z88.8 Allergy status to other drugs, medicaments and biological substances; E66.01 Morbid (severe) obesity due to excess calories; Z68.41 Body mass index [BMI] 40.0-44.9, adult; Z79.51 Long term (current) use of inhaled steroids; Z79.84 Long term (current) use of oral hypoglycemic drugs; Z79.899 Other long term (current) drug therapy

== ENCOUNTER → 2019-07-19 | Outpatient (CLI) | payer MEDICARE, MEDICAID ==
[2019-07-19 11:37] LABS: HEMATOCRIT 29.1 % (36.0-47.0); HEMOGLOBIN 8.7 g/dl (12.0-15.5); MEAN CORPUSCULAR HEMOGLOBIN 28.1 pg (27.0-33.0); MEAN CORPUSCULAR HGB CONC 29.9 g/dl (32.0-36.5); MEAN CORPUSCULAR VOLUME 93.9 fl (80.0-96.0); PLATELET COUNT, AUTOMATED 292 10^3/uL (150-450); WHITE BLOOD COUNT 8.2 10^3/uL (4.0-10.0)
[2019-07-19 12:07] LABS: CALCIUM LEVEL 8.1 MG/DL (8.8-10.2); CREATININE FOR GFR 1.47 MG/DL (0.55-1.30); POTASSIUM SERUM 4.1 MEQ/L (3.5-5.1)
== END ==
LOC: M LAB 10:45
PROVIDERS: ATTEND Physician Assistant
DX: Z01.818 Encounter for other preprocedural examination (principal)

== ENCOUNTER → 2019-08-15 | Outpatient (CLI) | payer MEDICARE, MEDICAID ==
[~2019-08-15] MED LIST changes: +HEPARIN 1,000 UNITS/ML 10ML VIAL (FOR RADIOLOGY& DIALYSIS ONLY) As Ordered ONE; +ISOVUE-300 61% 50ML VIAL (Q9967) As Ordered ONE; +LIDOCAINE 1% MDV 20ML VIAL As Ordered ONE; +MIDAZOLAM INJ 2 MG/2 ML VIAL (J2250) As Ordered ONE; +ONDANSETRON 4MG/2ML VIAL (J2405) As Ordered ONE; +fentaNYL 100 MCG/2 ML INJECTION (J3010) As Ordered ONE
[2019-08-15 06:59] LABS: HEMATOCRIT 30.3 % (36.0-47.0); HEMOGLOBIN 9.3 g/dl (12.0-15.5); MEAN CORPUSCULAR HEMOGLOBIN 28.4 pg (27.0-33.0); MEAN CORPUSCULAR HGB CONC 30.7 g/dl (32.0-36.5); MEAN CORPUSCULAR VOLUME 92.4 fl (80.0-96.0); PLATELET COUNT, AUTOMATED 239 10^3/uL (150-450); RED BLOOD COUNT 3.28 10^6/uL (4.00-5.40)
[2019-08-15 07:31] LABS: ALBUMIN 3.1 GM/DL (3.2-5.2); BILIRUBIN,TOTAL 0.3 MG/DL (0.2-1.0); CREATININE FOR GFR 1.35 MG/DL (0.55-1.30); GLOMERULAR FILTRATION RATE 40.8 (>39); POTASSIUM SERUM 3.8 MEQ/L (3.5-5.1)
--- NOTE | 2019-08-15 09:24 | ROOPDOC ---
[facility] Report Of Operation Report of Operation DATE OF PROCEDURE: 08/15/19 PREPROCEDURE DIAGNOSES: 1. Atherosclerosis prairie band vessels with claudication. 2. Venous insufficiency POSTPROCEDURE DIAGNOSES: Same. PROCEDURE: 1. Ultrasound-guided access left common femoral artery 2. Aortoiliofemoral arteriogram and right lower extremity runoff from selection of right common femoral artery, right superficial femoral artery and right popliteal artery 3. Angioplasty right anterior tibial artery with 2.5 x 220 Mazin balloon and 3 x 100 Mazin balloon 4. Angioplasty right posterior tibial artery with 2.5 x 220 Mazin balloon 5. Completion arteriograms right lower extremity 6. Mynx closure left common femoral artery SURGEON: Mis Servin MD ANESTHESIA: Local anesthesia 8 mL lidocaine. Moderate intravenous conscious sedation was supervised by Dr. Servin. The patient was independently monitored by registered nurse assigned to the Department of radiology using automated blood pressure, EKG, and pulse oximetry. The detail sedation record is permanently stored in the hospital information system. The brief sedation record is as follows: Start time 07:49, stop time 08:57, heparin 6000 units IV, Versed 1.5 mg IV, fentanyl 75 g IV, Zofran 4 mg IV. CONTRAST: 46 mL Isovue-300 INDICATION FOR PROCEDURE: Ms. Paula is a very pleasant 73-year-old patient with peripheral vascular disease and venous insufficiency, and recent noninvasive arterial study reveals bilateral lower extremity tibial disease. The patient needs to be in compression for her venous insufficiency, but she cannot tolerate it due to arterial insufficiency. She also has claudication. Risks benefits and alternatives to an arteriogram of the right lower extremity with potential intervention were explained to the patient and she is agreeable to proceed. Informed consent was obtained. INTERPRETATION: 1. There is some tortuosity to her distal aorta proximal iliac segments, but the aortoiliac segments are widely patent including the common iliac artery, hypogastric, and external iliac arteries bilaterally. 2. The right common femoral artery profunda and superficial femoral artery are widely patent. The popliteal arteries widely patent on the right also. 3. The origin of all 3 tibial basals are widely patent, but the main runoff to the foot is through the peroneal artery which does not show any significant stenosis although it is mildly ectatic. The posterior tibial artery is patent in the proximal third of the calf and then nearly occludes in the mid calf, occludes near the ankle and reconstitutes at the ankle through collaterals. The anterior tibial artery is patent for a few centimeters proximally than has a near occlusion and several focal heavy stenoses in its midportion with thready runoff into the dorsal pedis artery. 4. After angioplasty of the anterior tibial artery, there is widely patent flow with less than 20% residual stenosis and no flow limitation. No dissection embolization or extravasation is noted. After angioplasty the posterior tibial artery, there is widely patent flow with no significant residual stenosis and no flow limitation. There is no dissection embolization or extravasation. Both vessels runoff into the pedal vessels with good rapid filling of the foot. REPORT OF OPERATION: The patient was brought to the angiographic suite in stable condition and placed supine on the fluoroscopic table. Her bilateral groins were prepped and draped in a sterile fashion. A timeout was performed. Sedation was administered without complication. Local anesthesia was administered to skin and subcutaneous tissue over the left common femoral artery and a microneedle was used to access the artery under ultrasound guidance. The wire was passed through this access under fluoroscopic guidance needle was removed and a micro-sheath was placed under fluoroscopic guidance. The inner cannula and wire was removed and a Glidewire was advanced through the sheath into the aorta under fluoroscopic guidance. The sheath was exchanged for 6 Beninese sheath and flushed with saline. Infusion catheter was placed over the wire into the distal aorta and the wire was removed. An aortoiliofemoral arteriogram was performed. Please see interpretation above. We went up and over the bifurcation with the infusion catheter and the Glidewire and selected the right common femoral artery. Arteriograms of the right femoral and popliteal system were performed. Please see interpretation above. We then selected the right superficial femoral artery with the Glidewire and advance the catheter into the mid superficial femoral artery and performed a runoff through the calf and foot. We then exchanged the sheath over the wire for a 90 cm 6 Beninese sheath which was advanced to select the distal popliteal artery just proximal to the tibials and we then flushed the sheath was saline. We exchange the wire for an O18 Glidewire advantage and utilizes wire in a glide cath to select the anterior tibial artery. We were able to navigate the Glidewire through the near occlusions in the anterior tibial artery to the dorsal pedis artery and advanced a 2.5 x 220 Mazin balloon over the wire and a three-minute inflation was done proximally and distally. There was still some mild flow limiting stenosis noted in the proximal and mid anteri or tibial artery on completion arteriograms, and we therefore exchange the balloon for 3 x 100 Mazin balloon and three-minute inflations were performed. Following this, there was widely patent inflow through the anterior tibial artery. Please see interpretation above. We then selected the posterior tibial artery and were able to navigate by mouth 18 wire down to the distal posterior tibial artery in the plantar vessel in the foot. We angioplasty with a 2.5 x 220 Mazin balloon for three-minute inflations along the length of the vessel and following this there is widely patent flow to the foot. Please see interpretation above. We then exchanged the wire for the O35 Glidewire and exchange the sheath for the short 6 Beninese sheath over the wire. The sheath was flushed with saline. We deployed a Mynx closure device in the left common femoral artery with good hemostasis. The patient was then taken to recovery in stable condition. She tolerated the procedure and the sedation well. ESTIMATED BLOOD LOSS: Approximately 5 mL. COMPLICATIONS: None. PLAN: Our plan is to see the patient back in a week to check her groin access and see how she is doing. We will discuss options for the left lower extremity as needed for tibial disease. Continue hydration on her bedrest due to mild renal insufficiency. We used minimal contrast today, but hydration is helpful. Okay to resume all home medications. MIS SERVIN MD Aug 15, 2019 09:24
[2019-08-15 14:30] VITALS: BP 182/82
== END ==
LOC: M IRPRO 06:20
PROVIDERS: ATTEND Surgery Vascular Surgery
DX: I70.211 Atherosclerosis of native arteries of extremities with intermittent claudication, right leg (principal); I87.2 Venous insufficiency (chronic) (peripheral)
CPT/HCPCS: 37228; 37232; 75710; 75774; 80053; 85027; 99152; 99153; C1725; C1729; C1760; C1769; C1887; C1894; J2250; J2405; J3010; Q9967

== ENCOUNTER → 2019-09-18 | Outpatient (REF) | payer MEDICARE, MEDICAID ==
[~2019-09-18] MED LIST changes: -HEPARIN 1,000 UNITS/ML 10ML VIAL (FOR RADIOLOGY& DIALYSIS ONLY) As Ordered ONE; -ISOVUE-300 61% 50ML VIAL (Q9967) As Ordered ONE; -LIDOCAINE 1% MDV 20ML VIAL As Ordered ONE; -MIDAZOLAM INJ 2 MG/2 ML VIAL (J2250) As Ordered ONE; -MONT10TA2 PO; +MONT10TA4 PO; -ONDANSETRON 4MG/2ML VIAL (J2405) As Ordered ONE; -fentaNYL 100 MCG/2 ML INJECTION (J3010) As Ordered ONE
[2019-09-18 12:13] LABS: HEMATOCRIT 28.8 % (36.0-47.0); HEMOGLOBIN 9.1 g/dl (12.0-15.5); MEAN CORPUSCULAR HGB CONC 31.6 g/dl (32.0-36.5); MEAN CORPUSCULAR VOLUME 91.7 fl (80.0-96.0); PLATELET COUNT, AUTOMATED 228 10^3/uL (150-450); RED BLOOD COUNT 3.14 10^6/uL (4.00-5.40); WHITE BLOOD COUNT 7.6 10^3/uL (4.0-10.0)
[2019-09-18 12:14] LABS: ALBUMIN 3.1 GM/DL (3.2-5.2); BILIRUBIN,TOTAL 0.3 MG/DL (0.2-1.0); CALCIUM LEVEL 8.9 MG/DL (8.8-10.2); CHOLESTEROL RISK RATIO 3.41 (<5); CREATININE FOR GFR 1.47 MG/DL (0.55-1.30); GLOMERULAR FILTRATION RATE 36.9 (>39); MAGNESIUM LEVEL 1.6 MG/DL (1.8-2.4); POTASSIUM SERUM 3.9 MEQ/L (3.5-5.1); TOTAL PROTEIN 6.1 GM/DL (6.4-8.2)
[2019-09-18 12:21] LABS: PTH INTACT 50.7 PG/ML (18.5-88.0)
[2019-09-18 12:23] LABS: HEMOGLOBIN A1c 5.2 %
[2019-09-18 12:43] LABS: MAU/CREAT RATIO 103.6 MCG/MG (0.0-30.0)
== END ==
LOC: M PLALAB 09:30 → M SFHCPLAZ 09:30
PROVIDERS: ATTEND Internal Medicine
DX: N18.3 Chronic kidney disease, stage 3 (moderate) (principal); E11.22 Type 2 diabetes mellitus with diabetic chronic kidney disease

== ENCOUNTER → 2019-09-20 | Outpatient (CLI) | payer MEDICARE, MEDICAID ==
--- NOTE | 2019-09-20 14:12 | REP ---
Bilateral lower extremity arterial Doppler ultrasound: History: Atherosclerosis of the lyt[place] arteries. Intermittent claudication bilateral legs. Findings: The ankle brachial indices could not be obtained on either side due to noncompressible vessels. Moderate plaquing is seen diffusely and bilaterally. Relatively normal triphasic and biphasic waveforms are observed bilaterally. No high-grade stenosis is seen. Mildly stenotic flow velocities are observed in the profunda femoral artery on the left. Right lower extremity arterial Doppler velocity chart: CF A 119 cm/S Profunda 116 Proximal SFA 115 Mid SFA 118 Distal SFA 65 Popliteal 66 Proximal AT A 66 Tibioperoneal trunk 50 Proximal LAMP SHADE MAKER 18 Distal LAMP SHADE MAKER 60 Distal AT A 68 Left lower extremity arterial Doppler velocity chart: CF A 115 cm/S Profunda 185 Proximal SFA 158 Mid SFA 114 Distal SFA 68 Popliteal 82 Proximal AT A 83 Tibioperoneal trunk 58 Proximal LAMP SHADE MAKER 53 Distal LAMP SHADE MAKER 43 Distal AT A 106 Electronically Signed by Daryl Mohr MD 09/20/2019 02:03 P
== END ==
LOC: M RAD 12:33
PROVIDERS: ATTEND Physician Assistant
DX: I70.213 Atherosclerosis of native arteries of extremities with intermittent claudication, bilateral legs (principal); I87.393 Chronic venous hypertension (idiopathic) with other complications of bilateral lower extremity

== ENCOUNTER → 2019-12-15 | Outpatient (CLI) | payer MEDICARE, MEDICAID ==
[~2019-12-15] MED LIST changes: +CYCL-707 PO; -CYCL10TA PO
--- NOTE | 2019-12-20 00:46 | ECWPNPC ---
PATIENT NAME: YESICA JACKSON : 1945 GENDER: FEMALE VISIT DATE: 12/15/2019 DISCHARGE DATE: 12/15/19 1152 VISIT LOCKED DATE TIME: PHYSICIAN: LUCAS LOZANO RESOURCE: LUCAS LOZANO REASON FOR APPOINTMENT 1. INCREASED BACK PAIN PAT DONE HISTORY OF PRESENT ILLNESS HISTORY OF PRESENT ILLNESS: HERE FOR FOLLOW-UP OF CHRONIC LOW BACK PAIN. PAIN HAS INCREASED OVER THE PAST FEW MONTHS. PAIN IS AGGRAVATED BY INCREASED ACTIVITY OR LAYING ON HER RIGHT SIDE. PAIN IS LOCATED ACROSS LOWER BACK. HAS RESPONDED WELL TO SIJ INJECTIONS IN THE PAST. REVIEWED MRI OF THE LS-SPINE AND DISCUSS TREATMENT OPTIONS. PAIN THE PATIENT DESCRIBES THE PAIN... FALL RISK SCREENING: SCREENING :NO FALLS REPORTED IN THE LAST YEAR CURRENT MEDICATIONS TAKING XANAX 0.25 MG TABLET 1 TABLET ORALLY TWICE A DAY TAKING ZOLOFT 100 MG TABLET 1 AND 1/2 TABLET ORALLY ONCE A DAY TAKING CYANOCOBALAMIN 1000 MCG TABLET 1 TABLET ORALLY ONCE A DAY TAKING MAY HAVE - - HAND RAIL BY TOILET _ DAILY. DX: M19.90 TAKING CLOTRIMAZOLE 10 MG LOZENGE 1 CLINT MOUTH/THROAT FIVE TIMES A DAY NEEDED TAKING INCRUSE ELLIPTA 62.5 MCG/INH AEROSOL POWDER BREATH ACTIVATED 1 PUFF INHALATION ONCE A DAY TAKING ALBUTEROL SULFATE (2.5 MG/3ML) 0.083% NEBULIZATION SOLUTION 3 ML NEEDED INHALATION EVERY 4 HOURS NEEDED FOR SOB/COUGH/WHEEZE TAKING BUSPIRONE HCL 15 MG TABLET 1 TABLET ORALLY TWICE A DAY TAKING SINGULAIR 10 MG TABLET 1 TABLET IN THE EVENING ORALLY ONCE A DAY TAKING LOSARTAN POTASSIUM 50 MG TABLET 1 TABLET ORALLY ONCE A DAY TAKING LANCETS _ MISCELLANEOUS DIRECTED DX: E11.21 FOUR TIMES A DAY TAKING BLOOD GLUCOSE TEST STRIP _ STRIP ONE TOUCH ULTRA 2 IN VITRO, DX: E11.21 FOUR TIMES A DAY TAKING ADVAIR DISKUS 500-50 MCG/DOSE AEROSOL POWDER BREATH ACTIVATED 1 PUFF INHALATION TWICE A DAY TAKING COLACE 100 MG CAPSULE 1 CAPSULE ORALLY ONCE A DAY TAKING DEPEND PANT EXTRA LARGE 1 EA UNDERGARMENTS EXTRA LARGE. WEIGHT-217 POUNDS, HEIGHT 62 INCHES DX: R32 DAILY TAKING PEN NEEDLES 10/15" 31G X 5 MM MISCELLANEOUS BD ULTRA FINE SUBCUTANEOUSLY TWICE A DAY DX: E11.9 TAKING FLONASE 50 MCG/ACT SUSPENSION 2 SPRAYS IN EACH NOSTRIL NASALLY ONCE A DAY TAKING CALCITRIOL 0.5 MCG CAPSULE 1 CAPSULE ORALLY ONCE A DAY TAKING SENNA S 8.6-50 MG TABLET 2 TABLET ORALLY TWICE A DAY TAKING LIPITOR 40 MG TABLET 1 TABLET ORALLY ONCE A DAY TAKING HOSPITAL BED DIRECTED WITH MATTRESS M54.16 TAKING VENTOLIN HFA 108 (90 BASE) MCG/ACT AEROSOL SOLUTION 2 PUFFS INHALATION EVERY 4 HOURS NEEDED FOR SOB, COUGH, WHEEZE TAKING NYSTATIN 164879 UNIT/GM POWDER 1 APPLICATION TO AREA UNDER BREAST EXTERNALLY TWICE A DAY TAKING LASIX 40 MG TABLET 1 TAB ORALLY TWICE DAILY TAKING ALLOPURINOL 300 MG TABLET 1 TABLET ORALLY ONCE A DAY, NOTES: 04/09/19 TAKING OMEPRAZOLE 40 MG CAPSULE DELAYED RELEASE 1 CAPSULE ORALLY TWICE A DAY TAKING FERROUS GLUCONATE 324 (38 FE) MG TABLET 1 TABLET ORALLY EVERY OTHER DAY TAKING GLIPIZIDE-METFORMIN HCL 5-500 MG TABLET 1 TABLET ORALLY DAILY AT SUPPER TAKING GABAPENTIN 300 MG CAPSULE 1 CAPSULE ORALLY THREE TIMES DAILY TAKING VICTOZA 18 MG/3ML SOLUTION PEN-INJECTOR 1.8MG SUBCUTANEOUS ONCE A DAY TAKING LEVEMIR FLEXTOUCH 100 UNIT/ML SOLUTION PEN-INJECTOR 14 UNITS SUBCUTANEOUS DAILY--TAKE IN THE AM TAKING LEVOTHYROXINE SODIUM 150 MCG TABLET 1 TABLET ON AN EMPTY STOMACH IN THE MORNING ORALLY ONCE A DAY TAKING FOLIC ACID 1 MG TABLET 1 TABLET ORALLY ONCE A DAY NOT-TAKING TOBRADEX 0.3-0.1 % SUSPENSION 1 DROP INTO LEFT EYE OPHTHALMIC TID MEDICATION LIST REVIEWED AND RECONCILED WITH THE PATIENT PAST MEDICAL HISTORY CONTROLLED 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 CHRONIC KIDNEY DISEASE, STAGE 3 (MODERATE) HYPOTHYROIDISM, UNSPECIFIED HYPERCHOLESTEROLEMIA ANEMIA IN OTHER CHRONIC DISEASES CLASSIFIED ELSEWHERE CHRONIC OBSTRUCTIVE PULMONARY DISEASE, UNSPECIFIED OTHER DIABETIC NEUROLOGICAL COMPLICATION ASSOCIATED WITH TYPE 2 DIABETES MELLITUS LOCALIZED EDEMA GASTRO-ESOPHAGEAL REFLUX DISEASE WITHOUT ESOPHAGITIS SLEEP APNEA, UNSPECIFIED DYSTHYMIC DISORDER GOUT, UNSPECIFIED VITAMIN D DEFICIENCY, UNSPECIFIED ESOPHAGEAL OBSTRUCTION GASTROPARESIS PSEUDOGOUT PRIMARY OSTEOARTHRITIS, RIGHT HAND B12 DEFICIENCY PRIMARY OSTEOARTHRITIS OF LEFT HAND RIGHT LUMBAR RADICULOPATHY INFECTION RIGHT HAND FROM CAT BITE ALLERGIES ACTOS: CHF - ALLERGY PENICILLIN (FOR ALLERGIES USE ONLY): RASH - ALLERGY BYETTA 10 MCG PEN: VERY SICK - ALLERGY TRAMADOL: ITCH - ALLERGY SULFA (FOR ALLERGY USE ONLY): ITCH - ALLERGY SURGICAL HISTORY BILATERAL HIP OPERATIONS ON SIX DIFFERENT OCCASIONS, INITIALLY STARTING AT AGE 10 WHEN SHE HAD SLIPPED CAPITAL FEMORAL EPIPHYSES AGE 10 TUBAL LIGATION IN THE 1970'S 06/22/1972 LEFT KNEE REPLACED 2000? C-SPINE DISCECTOMY AND DONOR GRAFT AT C5 2001 HYSTERECTOMY WITH BLADDER REPAIR FOR VAGINAL BLEEDING 2003 HERNIA REPAIR, REPAIR OF THREE DIFFERENT ABDOMINAL HERNIAS RIGHT CARPAL TUNNEL SURGERY AND RIGHT ULNAR NERVE TRANSPOSITION 2004 COLONOSCOPY 2008 LEFT NIPPLE BREAST BIOPSY 2008 COLONOSCOPY 2009 COLONOSCOPY 2012 LEFT SHOULDER REPLACEMENT 10/27/2013 LAPAROSCOPIC CHOLECYSTECTOMY 07/21/2016 BILATERAL CATARACT SURGERY-DR. GAMBOA 06/09 AND 06/16/2017 UPPER ENDOSCOPY WITH ESOPHAGEAL DILATION 10/2017 GALLBLADDER REMOVED 2017 FAMILY HISTORY FATHER: 70 YRS MOTHER: 83 YRS 3 SON(S) , 1 DAUGHTER(S) . FATHER OF CVA\\\\\\\\\\\\\\\\NMOTHER OF COMPLICATIONS OF DIABETES\\\\\\\\\\\\\\\\N4 SIBLINGS, AT LEAST 2 ARE DIABETIC1 SON ARTHRITIS, PACEMAKER1 SON LEUKEMIA THAT IS IN REMISSION1 SON BACK PROBLEMSDAUGHTER-NOT SURE OF HISTORY. SOCIAL HISTORY GENERAL: TOBACCO USE ARE YOU A:FORMER SMOKER HOW LONG HAS IT BEEN SINCE YOU LAST SMOKED?> 10 YEARS MALES, AGE 65-75 WITH 5 PACK SMOKING HISTORY (100 CIGARETTES LIFETIME) QUIT 40 YRS AGO LATEX QUESTIONNAIRE LATEX ALLERGY : HAVE YOU EVER DEVELOPED ANY TYPE OF REACTION AFTER HANDLING LATEX PRODUCTS SUCH RUBBER GLOVES, CONDOMS, DIAPHRAGMS, BALLOONS, SOCKS, OR UNDERWEAR?NO LATEX ALLERGY : HAVE YOU EVER DEVELOPED ANY TYPE OF REACTION DURING OR AFTER DENTAL APPOINTMENT, VAGINAL/RECTAL EXAMINATION, SURGICAL PROCEDURE, OR ANY OTHER EXPOSURE?NO LATEX RISK : HAVE YOU EVER HAD ANY DIFFICULTY BREATHING OR HIVES AFTER EATING OR HANDLING ANY FRUITS, OR VEGETABLES; SUCH KIWI, BANANAS, STONE FRUITS, OR CHESTNUTSNO LATEX RISK : DO YOU HAVE A PREVIOUS PERSONAL HISTORY OF MORE THAN NINE SURGERIES, SPINA BIFIDA, OR REPEATED CATHERIZATIONS? YES - PLEASE INDICATE : > 9 SURGERIES LATEX RISK : ARE YOU FREQUENTLY EXPOSED TO LATEX PRODUCTS IN YOUR OCCUPATION?NO DATE ASKED : 12/14/2019 BMI CARE GOAL FOLLOW-UP ABOVE NORMAL BMI FOLLOW-UPDIETARY MANAGEMENT EDUCATION, GUIDANCE, AND COUNSELING ALCOHOL SCREENING DID YOU HAVE A DRINK CONTAINING ALCOHOL IN THE PAST YEAR?NO POINTS0 INTERPRETATIONNEGATIVE RECREATIONAL DRUG USE DRUG USE?NO CAFFEINE CAFFEINE USE?YES HOW OFTEN AND HOW MUCH? COFFEE SEXUAL HX HAD SEX IN THE LAST 12 MONTHS (VAGINAL, ORAL, OR ANAL)?NO HAVE YOU EVER HAD AN STD?NO HIV / HEP-C SCREENING HIV TEST OFFERED TO PATIENT:YES DATE OFFERED:11/01/2017 TEST ACCEPTED:NO HEP-C TEST OFFERED TO PATIENT:YES DATE OFFERED:11/01/2017 REASON:PATIENT DECLINED TEST ACCEPTED:NO REASON:PATIENT DECLINED BROCHURE PROVIDED TO PATIENTYES YAZIDI YAZIDI NO SABIANISM BELIEFS THAT WOULD IMPACT HEALTH CARE. 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 DIET: REGULAR. EXERCISE: NO REGULAR EXERCISE. MARITAL STATUS: WITH 4 CHILDREN. NEW PATIENT PAIN DIARY TODAY'S VISIT 12/15/19 PATIENT DESCRIBES PAIN :ACHING, HAVE IT ALL THE TIME, IT COMES AND GOES FROM 0-10, WHAT LEVEL IS YOUR PAIN TODAY?7 PRECIPITATING FACTORS INCREASED ACTIVITY, LAYING DOWN ON RIGHT SIDE ALLEVIATING FACTORS TYLENOL, NIGEL IMPACT ON FUNCTION YES PAIN CLINIC PFS, CLERGY, PUBLIC HEALTH REFERRALS WAS THE PROVIDER NOTIFIED OF ANY PERTINENT INFO?YES HAS THE PATIENT BEEN EDUCATED REGARDING HIS/HER PLAN OF CARE?YES HAS THE PATIENT BEEN EDUCATED REGARDING PAIN, THE RISK FOR PAIN, THE IMPORTANCE OF EFFECTIVE PAIN MANAGEMENT, AND THE PAIN ASSESSMENT PROCESS?YES HOUSING: RENTS APARTMENT. ADVANCE DIRECTIVE ADVANCE DIRECTIVE DISCUSSED WITH PATIENT:YES HAS HCP-SPOUSE - LUIS YOUSSEFRATH - [phone], SON - MAGUI JACKSON REVIEWED WITH PT -12-17 BVREVIEWED WITH PT 11/30/18 1315 LAS04/12/19 REVIEWED WITH PT. ADREVIEWED WITH PT 05/03/19 1129 NLJREVIEWED WITH PATIENT 07-12-19 DS. HOSPITALIZATION/MAJOR DIAGNOSTIC PROCEDURE PANCREATITIS 12/12/2015 [facility] ER- CHOLECYSTITIS-CHRONIC 06/01/2016 CARE IN [place]-URI 07/2017 [facility]-RIGHT LUMBAR RADICULOPATHY 02/26-03/02/2018 [facility] PNEUMONIA, COPD 06/27-06/28/2019 PNEUMONIA, CHF 2020 RIGHT LEG ANGIO /2020 REVIEW OF SYSTEMS REVIEWED BY: PROVIDER: LUCAS BILLINGSLEY . CONSTITUTIONAL: ANY CHANGE IN YOUR MEDICAL CONDITION? NO . CHILLS NO . FEVER NO . INFECTION: DO YOU HAVE NEW INFECTIONS? NO . DO YOU HAVE HISTORY OF MRSA? NO . MUSCULOSKELETAL: ANY NEW PATTERNS OF PAIN OR NUMBNESS? NO . GASTROENTEROLOGY: ANY NEW CHANGE IN BOWEL CONTROL? NO . GENITOURINARY: ANY NEW CHANGE IN BLADDER CONTROL? NO . IS THERE A CHANCE YOU COULD BE ? NO . HEMATOLOGY/LYMPH: DO YOU TAKE ANY BLOOD THINNERS? (FOR EXAMPLE- COUMADIN, PLAVIX, AGGRENOX, PLATEL, PRADAXA, OR XARELTO) NO . WHEN WAS YOUR LAST DOSE? DATE: TIME: . NEUROLOGY: HAVE YOU FALLEN IN THE PAST 12 MONTHS? NO . ANY NEW EXTREMITY NUMBNESS OR WEAKNESS? NO . CARDIOLOGY: DO YOU HAVE A PACEMAKER OR DEFIBRILLATOR? NO . RESPIRATORY: HAVE YOU BEEN SICK IN THE PAST WEEK? NO . FEVER NO . FLU LIKE SYMPTOMS? NO . COUGH NO . INTEGUMENTARY: DO YOU HAVE ANY RASHES OR OPEN SORES? NO . ALLERGIC/IMMUNO: ARE YOU ALLERGIC TO IV DYE? NO . ANY NEW ALLERGIES? NO . PSYCHIATRIC: DO YOU HAVE THOUGHTS OF HURTING YOURSELF OR SOMEONE ELSE? NO . ARE YOU ABUSED, NEGLECTED, OR IN AN UNSAFE ENVIRONMENT? NO . ENDOCRINOLOGY: ARE YOU DIABETIC? YES . OTHER: DO YOU NEED ANY PRESCRIPTIONS? NO . IF YES, PLEASE LIST: ____ . ANY NEW PROBLEMS WITH YOUR MEDICATIONS? NO . WHEN DID YOU LAST EAT? ____ . WHEN DID YOU LAST DRINK? ____ . WHAT DID YOU LAST DRINK? ____ . NAME OF PERSON DRIVING YOU HOME? ____ . DO YOU HAVE ANY OTHER QUESTIONS OR CONCERNS NO . VITAL SIGNS WT 220.6 LBS, HT 62 IN, BMI 40.34 INDEX, BP 143/60 MM HG, HR 92 /MIN, RR 18 /MIN, TEMP 96.5 F, OXYGEN SAT % 96%, NA INITIALS AW 1108, REVIEWED BY: WILLIS. EXAMINATION GENERAL EXAMINATION: GENERAL ALERT,NO DISTRESS . PSYCH AFFECT NORMAL . LUNGS: LUNG SOUNDS ARE CLEAR . HEART: HEART RATE REGULAR . MUSCULOSKELETAL: MST 5/5 BILAT. LOWER EXTREMITIES . LUMBAR: TENDERNESS OVER BILATERAL SIJ . POSITIVE TIKI'S TESTING BILATERAL LOWER EXTREMITIES.. DIAGNOSTIC TESTS REVIEWED CT L/S [id number] . ASSESSMENTS SACROILIITIS, NOT ELSEWHERE CLASSIFIED - M46.1 (PRIMARY) TREATMENT SACROILIITIS, NOT ELSEWHERE CLASSIFIED NOTES: BILATERAL SIJ. PREVENTIVE MEDICINE PAIN CLINIC TEACHING: PROCEDURE TEACHING PRE-PROCEDURE INSTRUCTIONS REVIEWED WITH PT. VERBALIZED UNDERSTANDING.. PROCEDURE CODES FA211 ESTABILISHED PATIENT [facility] CHARGE DISPOSITION & COMMUNICATION FOLLOW UP POST (REASON: BILATERAL SIJ) ELECTRONICALLY SIGNED BY ANALILIA APONTE ON 12/19/2019 AT 03:22 PM EDT DISCLAIMER : THIS IS A VISIT SUMMARY EXTRACTED FROM THE [employer] CHART. IT IS NOT A COPY OF THE [employer] PROGRESS NOTE. MATHEW
== END ==
LOC: M PAIN 11:15
PROVIDERS: ATTEND Nurse Practitioner Family
DX: M46.1 Sacroiliitis, not elsewhere classified (principal); E11.9 Type 2 diabetes mellitus without complications; Z79.84 Long term (current) use of oral hypoglycemic drugs; Z79.899 Other long term (current) drug therapy

== ENCOUNTER → 2020-01-05 | Outpatient (CLI) | payer MEDICARE, MEDICAID | LOC: M LABSMTC 11:35 | PROVIDERS: ATTEND Anesthesiology | DX: Z01.818 Encounter for other preprocedural examination (principal); Z11.59 Encounter for screening for other viral diseases | CPT/HCPCS: C9803; U0003 ==

== ENCOUNTER → 2020-01-08 | Outpatient (CLI) | payer MEDICARE, MEDICAID ==
[~2020-01-08] MED LIST changes: +BUPIVACAINE HCL 0.25% 30ML VIAL As Ordered ONE; +ISOVUE-M 300 61% 15ML VIAL As Ordered ONE; +LIDOCAINE 1% SDV 30ML VIAL As Ordered ONE; +dexameTHASONE 10MG/1ML VIAL PRES.FREE (J1100 PER 1MG) As Ordered ONE
--- NOTE | 2020-01-09 01:20 | ECWPNPC ---
PATIENT NAME: YESICA JACKSON : 1945 GENDER: FEMALE VISIT DATE: 01/08/2020 DISCHARGE DATE: 01/08/20 1212 VISIT LOCKED DATE TIME: PHYSICIAN: DEAN DODSON MD RESOURCE: DEAN DODSON MD REASON FOR APPOINTMENT 1. LAKHWINDER VALLES HISTORY OF PRESENT ILLNESS PAIN CENTER INTAKE QUESTIONS: DO YOU HAVE A HISTORY OF MRSA? :NO DO YOU TAKE A BLOOD THINNERS? :NO DO YOU HAVE ANY BLEEDING DISORDERS? :NO ANY NEW NUMBNESS OR WEAKNESS IN YOUR LEGS OR ARMS? :NO ANY PACEMAKER,DEFIBRILLATOR, OR DORSAL COLUMN STIMULATOR? :NO DO YOU HAVE ANY RASHES OR OPEN SORES? :NO ARE YOU ALLERGIC TO IV DYE? :NO ARE YOU DIABETIC? :NO ANY NEW PROBLEMS WITH YOUR MEDICATIONS? :NO HAVE YOU RECEIVED A VACCINE IN THE PAST 30 DAYS? :NO DO YOU PLAN TO RECEIVE A VACCINE IN THE NEXT 21 DAYS? :NO ANY HISTORY OF SEIZURES? :NO ANY HISTORY OF CARDIAC ISSUES OR EVENTS? :NO DO YOU HAVE SLEEP APNEA? : NO. ANY RECENT HEAD INJURY? :NO DO YOU HAVE ANY NEW INFECTIONS? :NO WHEN DID YOU LAST EAT? : - WHEN DID YOU LAST DRINK? : - WHAT DID YOU LAST DRINK? : - NAME OF PERSON DRIVING YOU HOME? : - DO YOU HAVE ANY OTHER QUESTIONS OR CONCERNS? : - GENERAL: -. FALL RISK SCREENING: SCREENING :NO FALLS REPORTED IN THE LAST YEAR PAIN SCREENING: PATIENT HAS A COMPLAINT OF ACUTE OR CHRONIC PAIN :NO NURSING NOTE: -. CURRENT MEDICATIONS TAKING XANAX 0.25 MG TABLET 1 TABLET ORALLY TWICE A DAY, NOTES: 01-08-20699 TAKING ZOLOFT 100 MG TABLET 1 AND 1/2 TABLET ORALLY ONCE A DAY, NOTES: 01-08-20699 TAKING CYANOCOBALAMIN 1000 MCG TABLET 1 TABLET ORALLY ONCE A DAY, NOTES: 01-08-20799 TAKING MAY HAVE - - HAND RAIL BY TOILET _ DAILY. DX: M19.90 TAKING CLOTRIMAZOLE 10 MG LOZENGE 1 CLINT MOUTH/THROAT FIVE TIMES A DAY NEEDED, NOTES: NOT LATELY TAKING INCRUSE ELLIPTA 62.5 MCG/INH AEROSOL POWDER BREATH ACTIVATED 1 PUFF INHALATION ONCE A DAY, NOTES: 01-08-20699 TAKING ALBUTEROL SULFATE (2.5 MG/3ML) 0.083% NEBULIZATION SOLUTION 3 ML NEEDED INHALATION EVERY 4 HOURS NEEDED FOR SOB/COUGH/WHEEZE, NOTES: JUST NEEDED TAKING BUSPIRONE HCL 15 MG TABLET 1 TABLET ORALLY TWICE A DAY, NOTES: 01-07-202099 TAKING LOSARTAN POTASSIUM 50 MG TABLET 1 TABLET ORALLY ONCE A DAY, NOTES: 01-07-202099 TAKING LANCETS _ MISCELLANEOUS DIRECTED DX: E11.21 FOUR TIMES A DAY TAKING BLOOD GLUCOSE TEST STRIP _ STRIP ONE TOUCH ULTRA 2 IN VITRO, DX: E11.21 FOUR TIMES A DAY TAKING ADVAIR DISKUS 500-50 MCG/DOSE AEROSOL POWDER BREATH ACTIVATED 1 PUFF INHALATION TWICE A DAY, NOTES: 01-08-20699 TAKING COLACE 100 MG CAPSULE 1 CAPSULE ORALLY ONCE A DAY, NOTES: 01-08-20799 TAKING PEN NEEDLES 3/16" 31G X 5 MM MISCELLANEOUS BD ULTRA FINE SUBCUTANEOUSLY TWICE A DAY DX: E11.9 TAKING FLONASE 50 MCG/ACT SUSPENSION 2 SPRAYS IN EACH NOSTRIL NASALLY ONCE A DAY, NOTES: 01-07-202099 TAKING CALCITRIOL 0.5 MCG CAPSULE 1 CAPSULE ORALLY ONCE A DAY, NOTES: 01-08-20699 TAKING SENNA S 8.6-50 MG TABLET 2 TABLET ORALLY TWICE A DAY, NOTES: 01-08-20699 TAKING LIPITOR 40 MG TABLET 1 TABLET ORALLY ONCE A DAY, NOTES: 01-07-202099 TAKING HOSPITAL BED DIRECTED WITH MATTRESS M54.16 TAKING VENTOLIN HFA 108 (90 BASE) MCG/ACT AEROSOL SOLUTION 2 PUFFS INHALATION EVERY 4 HOURS NEEDED FOR SOB, COUGH, WHEEZE, NOTES: JUST NEEDED TAKING NYSTATIN 279228 UNIT/GM POWDER 1 APPLICATION TO AREA UNDER BREAST EXTERNALLY TWICE A DAY, NOTES: 01-08-20699 TAKING LASIX 40 MG TABLET 1 TAB ORALLY TWICE DAILY, NOTES: 01-08-20599 TAKING ALLOPURINOL 300 MG TABLET 1 TABLET ORALLY ONCE A DAY, NOTES: 01-05-20799 TAKING OMEPRAZOLE 40 MG CAPSULE DELAYED RELEASE 1 CAPSULE ORALLY TWICE A DAY, NOTES: 01-08-20699 TAKING FERROUS GLUCONATE 324 (38 FE) MG TABLET 1 TABLET ORALLY EVERY OTHER DAY, NOTES: 01-08-20699 TAKING GABAPENTIN 300 MG CAPSULE 1 CAPSULE ORALLY THREE TIMES DAILY, NOTES: 699 TAKING VICTOZA 18 MG/3ML SOLUTION PEN-INJECTOR 1.8MG SUBCUTANEOUS ONCE A DAY, NOTES: 01-07-20799 TAKING LEVEMIR FLEXTOUCH 100 UNIT/ML SOLUTION PEN-INJECTOR 14 UNITS SUBCUTANEOUS DAILY--TAKE IN THE AM, NOTES: 01-07-20699 TAKING LEVOTHYROXINE SODIUM 150 MCG TABLET 1 TABLET ON AN EMPTY STOMACH IN THE MORNING ORALLY ONCE A DAY, NOTES: 01-08-20699 TAKING FOLIC ACID 1 MG TABLET 1 TABLET ORALLY ONCE A DAY, NOTES: 01-07-20 1400 TAKING SINGULAIR 10 MG TABLET 1 TABLET IN THE EVENING ORALLY ONCE A DAY, NOTES: 01-08-20699 TAKING GLIPIZIDE-METFORMIN HCL 5-500 MG TABLET 1 TABLET ORALLY DAILY AT SUPPER, NOTES: 01-07-20899 TAKING DEPEND PANT EXTRA LARGE 1 EA UNDERGARMENTS EXTRA LARGE. 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 CHRONIC KIDNEY DISEASE, STAGE 3 (MODERATE) HYPOTHYROIDISM, UNSPECIFIED HYPERCHOLESTEROLEMIA ANEMIA IN OTHER CHRONIC DISEASES CLASSIFIED ELSEWHERE CHRONIC OBSTRUCTIVE PULMONARY DISEASE, UNSPECIFIED OTHER DIABETIC NEUROLOGICAL COMPLICATION ASSOCIATED WITH TYPE 2 DIABETES MELLITUS LOCALIZED EDEMA GASTRO-ESOPHAGEAL REFLUX DISEASE WITHOUT ESOPHAGITIS SLEEP APNEA, UNSPECIFIED DYSTHYMIC DISORDER GOUT, UNSPECIFIED VITAMIN D DEFICIENCY, UNSPECIFIED ESOPHAGEAL OBSTRUCTION GASTROPARESIS PSEUDOGOUT PRIMARY OSTEOARTHRITIS, RIGHT HAND B12 DEFICIENCY PRIMARY OSTEOARTHRITIS OF LEFT HAND RIGHT LUMBAR RADICULOPATHY INFECTION RIGHT HAND FROM CAT BITE ALLERGIES ACTOS: CHF - ALLERGY PENICILLIN (FOR ALLERGIES USE ONLY): RASH - ALLERGY BYETTA 10 MCG PEN: VERY SICK - ALLERGY TRAMADOL: ITCH - ALLERGY SULFA (FOR ALLERGY USE ONLY): ITCH - ALLERGY SURGICAL HISTORY BILATERAL HIP OPERATIONS ON SIX DIFFERENT OCCASIONS, INITIALLY STARTING AT AGE 10 WHEN SHE HAD SLIPPED CAPITAL FEMORAL EPIPHYSES AGE 10 TUBAL LIGATION IN THE 1970'S 06/22/1972 LEFT KNEE REPLACED 2000? C-SPINE DISCECTOMY AND DONOR GRAFT AT C5 2001 HYSTERECTOMY WITH BLADDER REPAIR FOR VAGINAL BLEEDING 2004 HERNIA REPAIR, REPAIR OF THREE DIFFERENT ABDOMINAL HERNIAS RIGHT CARPAL TUNNEL SURGERY AND RIGHT ULNAR NERVE TRANSPOSITION 2004 COLONOSCOPY 2008 LEFT NIPPLE BREAST BIOPSY 2009 COLONOSCOPY 2009 COLONOSCOPY 2012 LEFT SHOULDER REPLACEMENT 10/27/2013 LAPAROSCOPIC CHOLECYSTECTOMY 07/21/2016 BILATERAL CATARACT SURGERY-DR. GAMBOA 06/09 AND 06/16/2017 UPPER ENDOSCOPY WITH ESOPHAGEAL DILATION 10/2017 GALLBLADDER REMOVED 2017 FAMILY HISTORY FATHER: 70 YRS MOTHER: 83 YRS 3 SON(S) , 1 DAUGHTER(S) . FATHER OF CVA\\\\\\\\\\\\\\\\NMOTHER OF COMPLICATIONS OF DIABETES\\\\\\\\\\\\\\\\N4 SIBLINGS, AT LEAST 2 ARE DIABETIC1 SON ARTHRITIS, PACEMAKER1 SON LEUKEMIA THAT IS IN REMISSION1 SON BACK PROBLEMSDAUGHTER-NOT SURE OF HISTORY. SOCIAL HISTORY GENERAL: TOBACCO USE ARE YOU A:FORMER SMOKER HOW LONG HAS IT BEEN SINCE YOU LAST SMOKED?> 10 YEARS MALES, AGE 65-75 WITH 5 PACK SMOKING HISTORY (100 CIGARETTES LIFETIME) QUIT 40 YRS AGO LATEX QUESTIONNAIRE LATEX ALLERGY : HAVE YOU EVER DEVELOPED ANY TYPE OF REACTION AFTER HANDLING LATEX PRODUCTS SUCH RUBBER GLOVES, CONDOMS, DIAPHRAGMS, BALLOONS, SOCKS, OR UNDERWEAR?NO LATEX ALLERGY : HAVE YOU EVER DEVELOPED ANY TYPE OF REACTION DURING OR AFTER DENTAL APPOINTMENT, VAGINAL/RECTAL EXAMINATION, SURGICAL PROCEDURE, OR ANY OTHER EXPOSURE?NO LATEX RISK : HAVE YOU EVER HAD ANY DIFFICULTY BREATHING OR HIVES AFTER EATING OR HANDLING ANY FRUITS, OR VEGETABLES; SUCH KIWI, BANANAS, STONE FRUITS, OR CHESTNUTSNO LATEX RISK : DO YOU HAVE A PREVIOUS PERSONAL HISTORY OF MORE THAN NINE SURGERIES, SPINA BIFIDA, OR REPEATED CATHERIZATIONS? YES - PLEASE INDICATE : > 9 SURGERIES LATEX RISK : ARE YOU FREQUENTLY EXPOSED TO LATEX PRODUCTS IN YOUR OCCUPATION?NO DATE ASKED : 12/21/2019 BMI CARE GOAL FOLLOW-UP ABOVE NORMAL BMI FOLLOW-UPDIETARY MANAGEMENT EDUCATION, GUIDANCE, AND COUNSELING ALCOHOL SCREENING DID YOU HAVE A DRINK CONTAINING ALCOHOL IN THE PAST YEAR?NO POINTS0 INTERPRETATIONNEGATIVE RECREATIONAL DRUG USE DRUG USE?NO CAFFEINE CAFFEINE USE?YES HOW OFTEN AND HOW MUCH? COFFEE SEXUAL HX HAD SEX IN THE LAST 12 MONTHS (VAGINAL, ORAL, OR ANAL)?NO HAVE YOU EVER HAD AN STD?NO HIV / HEP-C SCREENING HIV TEST OFFERED TO PATIENT:YES DATE OFFERED:11/01/2017 TEST ACCEPTED:NO HEP-C TEST OFFERED TO PATIENT:YES DATE OFFERED:11/01/2017 REASON:PATIENT DECLINED TEST ACCEPTED:NO REASON:PATIENT DECLINED BROCHURE PROVIDED TO PATIENTYES NONDENOMINATIONAL NONDENOMINATIONAL NO HOLINESS BELIEFS THAT WOULD IMPACT HEALTH CARE. 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 DIET: REGULAR. EXERCISE: NO REGULAR EXERCISE. MARITAL STATUS: WITH 4 CHILDREN. NEW PATIENT PAIN DIARY TODAY'S VISIT 12/15/19 PATIENT DESCRIBES PAIN :ACHING, HAVE IT ALL THE TIME, IT COMES AND GOES FROM 0-10, WHAT LEVEL IS YOUR PAIN TODAY?7 PRECIPITATING FACTORS INCREASED ACTIVITY, LAYING DOWN ON RIGHT SIDE ALLEVIATING FACTORS TYLENOL, NIGEL IMPACT ON FUNCTION YES PAIN CLINIC PFS, CLERGY, PUBLIC HEALTH REFERRALS WAS THE PROVIDER NOTIFIED OF ANY PERTINENT INFO?YES HAS THE PATIENT BEEN EDUCATED REGARDING HIS/HER PLAN OF CARE?YES HAS THE PATIENT BEEN EDUCATED REGARDING PAIN, THE RISK FOR PAIN, THE IMPORTANCE OF EFFECTIVE PAIN MANAGEMENT, AND THE PAIN ASSESSMENT PROCESS?YES HOUSING: RENTS APARTMENT. ADVANCE DIRECTIVE ADVANCE DIRECTIVE DISCUSSED WITH PATIENT:YES HAS HCP-SPOUSE - LUIS JACKSON - [phone], SON - MAGUI JACKSON REVIEWED WITH PT -12-17 BVREVIEWED WITH PT 11/30/18 1315 LAS04/12/19 REVIEWED WITH PT. ADREVIEWED WITH PT 05/03/19 1129 NLJREVIEWED WITH PATIENT 07-12-19 DS. HOSPITALIZATION/MAJOR DIAGNOSTIC PROCEDURE PANCREATITIS 12/12/2015 [facility] ER- CHOLECYSTITIS-CHRONIC 06/01/2016 [facility]ARE [facility]-URI 07/2017 [facility] HOSPITAL-RIGHT LUMBAR RADICULOPATHY 02/26-03/02/2018 [facility]-RLL PNEUMONIA, COPD 06/27-06/28/2019 PNEUMONIA, CHF 2019 RIGHT LEG ANGIO /2019 VITAL SIGNS WT 218.6 LBS, HT 62 IN, BMI 39.98 INDEX, BP 165/72 MM HG, HR 82 /MIN, RR 18 /MIN, TEMP 97.4 F, OXYGEN SAT % 97%, SAFE IN ENV? (Y/N) Y, NA INITIALS SC 10:49. EXAMINATION GENERAL EXAMINATION: THE PATIENT IS ALERT, ORIENTED TIMES THREE AND COOPERATIVE. HEART SHOWS REGULAR RHYTHM, NO MURMURS AND NO GALLOPS. LUNGS ARE CLEAR TO AUSCULTATION. ASSESSMENTS SACROILIITIS, NOT ELSEWHERE CLASSIFIED - M46.1 (PRIMARY) SACROILIAC JOINT DYSFUNCTION - M53.3 TREATMENT SACROILIITIS, NOT ELSEWHERE CLASSIFIED [facility] FLUORO GUIDANCE (PAIN)[id number] PROCEDURES PAIN NURSING RECORD PRE-PROCEDURE IV SITE N/A, PRE-PROCEDURE ORAL MEDICATIONS NONE PROCEDURE IN ROOM 1135, PHYSICIAN IN ROOM 1147, START 1150, FINISH 1153, PHYSICIAN OUT OF ROOM 1156, OUT OF ROOM 1200, STEROID YES DEXOMETHASONE, O2 ROOM AIR, ECG NORMAL SINUS, PATIENT SHIELDED YES, SAFETY STRAP YES, PREP RNADA RN, DRESSING DR DODSON LOC: 1. ALERT, ORIENTED RESP: 1. REGULAR, NO DYSPNEA COLOR: 1. PINK SKIN: 3. OTHER POSITION: 2. SUPINE VITALS: 1135 168/76 80 18 99 % KGULLO RN 1150 170/81 84 18 99 % KGLADIO RN 1210 POST PROCEDURE VS 155/58 76 18 98 % KGULLO MARINE STRUCTURAL DESIGNER: POST PAIN 4, DRESSING SITE DRY AND INTACT, IV NA, GAIT WHEEL CHAIR, TEACHING COMPLETED, PATIENT ACKNOWLEDGES UNDERSTANDING WENT OVER ENTIRE DC, PATIENT DISCHARGED AT 1213 : 1.REGULAR, NO DYSPNEA PN SI PRE PROCEDURE DIAGNOSIS SACROILIITIS, SACROILIAC JOINT DYSFUNCTION POST PROCEDURE DIAGNOSIS SACROILIITIS, SACROILIAC JOINT DYSFUNCTION PROCEDURE BILATERAL SACROILIAC JOINT BLOCK SURGEON DR. DEAN DODSON SOLAR INSTALLATION CREW SUPERVISOR NONE ANESTHESIA LOCAL PRE PROCEDURE NOTE THE PATIENT WITH HISTORY OF CHRONIC LOW BACK PAIN. I EVALUATED THE PATIENT AND REVIEWED THE CHART. I WENT OVER THE RISKS, ALTERNATIVES, AND BENEFITS ASSOCIATED WITH THIS PROCEDURE. I DISCUSSED THAT THE USE OF STEROIDS MAY CONTRIBUTE TO IMMUNOSUPPRESSION OF THE PATIENT'S BODY AGAINST INFECTIONS SUCH THE PAREKH VIRUS, COVID-19. THE PATIENT IS AWARE OF THE POTENTIAL COMPLICATIONS ASSOCIATED WITH AN INFECTION OF THIS VIRUS INCLUDING . THE PATIENT WOULD LIKE TO PROCEED AND GAVE CONSENT TO PERFORM THE PROCEDURE. THE PATIENT DENIES UNEXPLAINABLE WEIGHT LOSS, FEVER, CHILLS, OR NEW CHANGES IN URINARY OR BOWEL CONTROL. THE PATIENT IS COVID-19 NEGATIVE DESCRIPTION OF PROCEDURE THE PATIENT WAS BROUGHT TO THE PROCEDURE ROOM AND PLACED IN THE PRONE POSITION. THE LUMBOSACRAL AREA WAS CLEANED WITH CHLORAPREP SOLUTION AND DRAPED ASEPTICALLY. THE PROCEDURE WAS DONE UNDER STERILE CONDITIONS. I CHECKED LATERALITY AND THE LEVEL WHERE THE PROCEDURE WAS GOING TO BE PERFORMED WITH THE PATIENT AND THE SUPPORTING STAFF AT THE MOMENT OF THE TIME OUT IN THE PROCEDURE ROOM. UNDER FLUOROSCOPIC GUIDANCE, TARGET POINT WAS SELECTED AT THE LOWER BORDER OF THE LEFT AND RIGHT SACROILIAC JOINT. TARGET POINT WAS SELECTED AFTER MEDIAL ROTATION AND TILT OF THE MAGNIFIER OF THE C-ARM. LIDOCAINE WAS USED TO NUMB THE SKIN AND SUBCUTANEOUS TISSUE BELOW IT. A SPINAL NEEDLE, 22-GAUGE, WAS ADVANCED UNDER FLUOROSCOPIC GUIDANCE AND FOLLOWING PATIENT FEEDBACK UNTIL THE TARGET AREA WAS TOUCHED. THE POSITION OF THE NEEDLE WAS VERIFIED WITH AP AND LATERAL VIEWS. AFTER PROPER POSITION OF THE NEEDLE WAS ACHIEVED, ISOVUE M DYE 30%, 0.25 ML, WAS INJECTED SHOWING SPREAD OF THE DYE. THEN, A SOLUTION OF 10 MG OF DEXAMETHASONE WAS INJECTED IN EACH JOINT WITH 3 ML OF BUPIVACAINE 0.125%. THERE WAS NO EVIDENCE OF BLOOD, PARESTHESIA OR CEREBROSPINAL FLUID DURING THE PROCEDURE. THE PATIENT WAS SENT TO THE RECOVERY ROOM. THE PATIENT WAS MOVING THE EXTREMITIES AND DOING WELL. THERE WAS NO COMPLICATION DURING THE PROCEDURE. EBL LESS THAN 5 ML. FLUOROSCOPY TIME WAS 13 SECONDS POST PROCEDURE NOTE THE PROCEDURE DONE WAS DISCUSSED WITH THE PATIENT. THE PATIENT WILL BE SEEN IN A FOLLOW UP IN THE NEXT FEW WEEKS. I AM LOOKING FOR LONG LASTING PAIN RELIEF FOR THE PATIENT WITH THIS INTERVENTION. INSTRUCTIONS WERE GIVEN, QUESTIONS WERE ANSWERED, AND THE PATIENT EXPRESSED UNDERSTANDING AND AGREES WITH THE PLAN. THE PATIENT IS AWARE TO STAY HOME FOR THE NET WEEK, IF POSSIBLE, DUE TO COVID-19. I, DARLIN HOFFMAN, DOCUMENTED THE ABOVE INFORMATION ACTING A SCRIBE FOR DR. DODSON. I HAVE REVIEWED THE ABOVE DOCUMENT, WRITTEN BY DARLIN HOFFMAN, WATER TAXI OPERATOR, AND I VERIFY THAT IT IS ACCURATE DR DODSON HAS REQUESTED A CLEARANCE FROM [facility] IN REGARDS TO BLEEDING. PT HAS NUMEROUS BRUISES ON HER ARMS. PROCEDURE CODES 23713 INJECT SACROILIAC JOINT, MODIFIERS: 50 DISPOSITION & COMMUNICATION FOLLOW UP F/UP WITH BUSINESS OFFICE TECHNICIAN (REASON: POST DESHAWN SIJ) ELECTRONICALLY SIGNED BY DEAN DODSON MD, MD ON 01/08/2020 AT 05:13 PM EDT DISCLAIMER : THIS IS A VISIT SUMMARY EXTRACTED FROM THE [facility] CHART. IT IS NOT A COPY OF THE [facility] PROGRESS NOTE. MTDD
--- NOTE | 2020-01-09 15:27 | REP ---
C-ARM VIEWS SACROILIAC JOINTS: Two C-arm views bilateral sacroiliac joints performed during injection by Dr. Good. A needle overlies each sacroiliac joint. 13 seconds of fluoroscopy time utilized. Electronically Signed by Fahad Baker MD 01/11/2020 12:44 A
== END ==
LOC: M PAIN 10:45
PROVIDERS: ATTEND Anesthesiology
DX: M46.1 Sacroiliitis, not elsewhere classified (principal); M53.3 Sacrococcygeal disorders, not elsewhere classified
CPT/HCPCS: G0260; J1100; Q9967

== ENCOUNTER → 2020-01-23 | Outpatient (CLI) | payer MEDICARE, MEDICAID ==
[~2020-01-23] MED LIST changes: -BUPIVACAINE HCL 0.25% 30ML VIAL As Ordered ONE; -ISOVUE-M 300 61% 15ML VIAL As Ordered ONE; -LIDOCAINE 1% SDV 30ML VIAL As Ordered ONE; -dexameTHASONE 10MG/1ML VIAL PRES.FREE (J1100 PER 1MG) As Ordered ONE
--- NOTE | 2020-01-27 02:36 | ECWPNPC ---
PATIENT NAME: YESICA JACKSON : 1945 GENDER: FEMALE VISIT DATE: 01/23/2020 DISCHARGE DATE: 01/23/20 1024 VISIT LOCKED DATE TIME: PHYSICIAN: LUCAS LOZANO RESOURCE: LUCAS LOZANO REASON FOR APPOINTMENT 1. POST [facility] HISTORY OF PRESENT ILLNESS GENERAL: -. FALL RISK SCREENING: SCREENING :NO FALLS REPORTED IN THE LAST YEAR PAIN SCREENING: PATIENT HAS A COMPLAINT OF ACUTE OR CHRONIC PAIN :YES LOCATION OF PAIN:LOW BACK INTENSITY OF PAIN (SCALE OF 1 TO 10):2 WHAT DOES YOUR PAIN FEEL LIKE:CONTINOUS, TENDER NURSING NOTE: -. PAIN CENTER INTAKE QUESTIONS: DO YOU HAVE A HISTORY OF MRSA? :NO DO YOU TAKE A BLOOD THINNERS? :NO DO YOU HAVE ANY BLEEDING DISORDERS? :NO ANY NEW NUMBNESS OR WEAKNESS IN YOUR LEGS OR ARMS? :NO ANY PACEMAKER,DEFIBRILLATOR, OR DORSAL COLUMN STIMULATOR? :NO DO YOU HAVE ANY RASHES OR OPEN SORES? :NO ARE YOU ALLERGIC TO IV DYE? :NO ARE YOU DIABETIC? :YES MANAGED WITH ORAL AND SUBQ MEDS ANY NEW PROBLEMS WITH YOUR MEDICATIONS? :NO HAVE YOU RECEIVED A VACCINE IN THE PAST 30 DAYS? :NO DO YOU PLAN TO RECEIVE A VACCINE IN THE NEXT 21 DAYS? :NO DO YOU NEED ANY PRESCRIPTION? :NO DO YOU TAKE ANY IMMUNOSUPPRESSIVE MEDICATIONS? :NO IS THERE A CHANCE YOU COULD BE ? :NO ARE YOU BREAST FEEDING? :NO HISTORY OF PRESENT ILLNESS: HERE FOR POST PROCEDURE F/U.HAD BILAT. [facility] ON 01/08/20.REPORTING >80% IMPROVEMENT IN PAIN THAT CONTINUES TODAY.RATING PAIN VAS 2/10. WORST AREA OF PAIN IS RIGHT UPPER LUMBAR PARASPINAL REGION. THIS BEGAN A FEW MONTHS AGO. DENIES PRECIPITATING EVENT. STATES PAIN IS AGGRAVATED WHEN SHE SITS DOWN INTO A CHAIR. WILL BE SEEING HER PRIMARY CARE PROVIDER TOMORROW. DISCUSSED THE POSSIBILITY THAT THIS COULD BE A TRIGGER POINT AREA THAT WE COULD INJECT AFTER PRIMARY CARE EVALUATES THIS. PAIN THE PATIENT DESCRIBES THE PAIN... CURRENT MEDICATIONS TAKING XANAX 0.25 MG TABLET 1 TABLET ORALLY TWICE A DAY TAKING ZOLOFT 100 MG TABLET 1 AND 1/2 TABLET ORALLY ONCE A DAY TAKING CYANOCOBALAMIN 1000 MCG TABLET 1 TABLET ORALLY ONCE A DAY TAKING MAY HAVE - - HAND RAIL BY TOILET _ DAILY. DX: M19.90 TAKING CLOTRIMAZOLE 10 MG LOZENGE 1 CLINT MOUTH/THROAT FIVE TIMES A DAY NEEDED TAKING INCRUSE ELLIPTA 62.5 MCG/INH AEROSOL POWDER BREATH ACTIVATED 1 PUFF INHALATION ONCE A DAY TAKING ALBUTEROL SULFATE (2.5 MG/3ML) 0.083% NEBULIZATION SOLUTION 3 ML NEEDED INHALATION EVERY 4 HOURS NEEDED FOR SOB/COUGH/WHEEZE TAKING BUSPIRONE HCL 15 MG TABLET 1 TABLET ORALLY TWICE A DAY TAKING LOSARTAN POTASSIUM 50 MG TABLET 1 TABLET ORALLY ONCE A DAY TAKING LANCETS MISC _ MISCELLANEOUS DIRECTED DX: E11.21 FOUR TIMES A DAY TAKING BLOOD GLUCOSE TEST STRIP _ STRIP ONE TOUCH ULTRA 2 IN VITRO, DX: E11.21 FOUR TIMES A DAY TAKING ADVAIR DISKUS 500-50 MCG/DOSE AEROSOL POWDER BREATH ACTIVATED 1 PUFF INHALATION TWICE A DAY TAKING PEN NEEDLES 10/15" 31G X 5 MM MISCELLANEOUS BD ULTRA FINE SUBCUTANEOUSLY TWICE A DAY DX: E11.9 TAKING FLONASE 50 MCG/ACT SUSPENSION 2 SPRAYS IN EACH NOSTRIL NASALLY ONCE A DAY TAKING CALCITRIOL 0.5 MCG CAPSULE 1 CAPSULE ORALLY ONCE A DAY TAKING SENNA S 8.6-50 MG TABLET 2 TABLET ORALLY TWICE A DAY TAKING LIPITOR 40 MG TABLET 1 TABLET ORALLY ONCE A DAY TAKING HOSPITAL BED DIRECTED WITH MATTRESS M54.16 TAKING VENTOLIN HFA 108 (90 BASE) MCG/ACT AEROSOL SOLUTION 2 PUFFS INHALATION EVERY 4 HOURS NEEDED FOR SOB, COUGH, WHEEZE TAKING NYSTATIN [id number] UNIT/GM POWDER 1 APPLICATION TO AREA UNDER BREAST EXTERNALLY TWICE A DAY TAKING LASIX 40 MG TABLET 1 TAB ORALLY TWICE DAILY TAKING ALLOPURINOL 300 MG TABLET 1 TABLET ORALLY ONCE A DAY TAKING OMEPRAZOLE 40 MG CAPSULE DELAYED RELEASE 1 CAPSULE ORALLY TWICE A DAY TAKING FERROUS GLUCONATE 324 (38 FE) MG TABLET 1 TABLET ORALLY EVERY OTHER DAY TAKING GABAPENTIN 300 MG CAPSULE 1 CAPSULE ORALLY THREE TIMES DAILY TAKING VICTOZA 18 MG/3ML SOLUTION PEN-INJECTOR 1.8MG SUBCUTANEOUS ONCE A DAY TAKING LEVEMIR FLEXTOUCH 100 UNIT/ML SOLUTION PEN-INJECTOR 14 UNITS SUBCUTANEOUS DAILY--TAKE IN THE AM TAKING LEVOTHYROXINE SODIUM 150 MCG TABLET 1 TABLET ON AN EMPTY STOMACH IN THE MORNING ORALLY ONCE A DAY TAKING FOLIC ACID 1 MG TABLET 1 TABLET ORALLY ONCE A DAY TAKING SINGULAIR 10 MG TABLET 1 TABLET IN THE EVENING ORALLY ONCE A DAY TAKING GLIPIZIDE-METFORMIN HCL 5-500 MG TABLET 1 TABLET ORALLY DAILY AT SUPPER TAKING DEPEND PANT EXTRA LARGE 1 EA UNDERGARMENTS EXTRA LARGE. 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 CHRONIC KIDNEY DISEASE, STAGE 3 (MODERATE) HYPOTHYROIDISM, UNSPECIFIED HYPERCHOLESTEROLEMIA ANEMIA IN OTHER CHRONIC DISEASES CLASSIFIED ELSEWHERE CHRONIC OBSTRUCTIVE PULMONARY DISEASE, UNSPECIFIED OTHER DIABETIC NEUROLOGICAL COMPLICATION ASSOCIATED WITH TYPE 2 DIABETES MELLITUS LOCALIZED EDEMA GASTRO-ESOPHAGEAL REFLUX DISEASE WITHOUT ESOPHAGITIS SLEEP APNEA, UNSPECIFIED DYSTHYMIC DISORDER GOUT, UNSPECIFIED VITAMIN D DEFICIENCY, UNSPECIFIED ESOPHAGEAL OBSTRUCTION GASTROPARESIS PSEUDOGOUT PRIMARY OSTEOARTHRITIS, RIGHT HAND B12 DEFICIENCY PRIMARY OSTEOARTHRITIS OF LEFT HAND RIGHT LUMBAR RADICULOPATHY INFECTION RIGHT HAND FROM CAT BITE ALLERGIES ACTOS: CHF - ALLERGY PENICILLIN (FOR ALLERGIES USE ONLY): RASH - ALLERGY BYETTA 10 MCG PEN: VERY SICK - ALLERGY TRAMADOL: ITCH - ALLERGY SULFA (FOR ALLERGY USE ONLY): ITCH - ALLERGY SURGICAL HISTORY BILATERAL HIP OPERATIONS ON SIX DIFFERENT OCCASIONS, INITIALLY STARTING AT AGE 10 WHEN SHE HAD SLIPPED CAPITAL FEMORAL EPIPHYSES AGE 10 TUBAL LIGATION IN THE 1969'S 06/22/1972 LEFT KNEE REPLACED 2000? C-SPINE DISCECTOMY AND DONOR GRAFT AT C5 2002 HYSTERECTOMY WITH BLADDER REPAIR FOR VAGINAL BLEEDING 2004 HERNIA REPAIR, REPAIR OF THREE DIFFERENT ABDOMINAL HERNIAS RIGHT CARPAL TUNNEL SURGERY AND RIGHT ULNAR NERVE TRANSPOSITION 2004 COLONOSCOPY 2008 LEFT NIPPLE BREAST BIOPSY 2008 COLONOSCOPY 2009 COLONOSCOPY 2012 LEFT SHOULDER REPLACEMENT 10/27/2013 LAPAROSCOPIC CHOLECYSTECTOMY 07/21/2016 BILATERAL CATARACT SURGERY-DR. GAMBOA 06/09 AND 06/16/2017 UPPER ENDOSCOPY WITH ESOPHAGEAL DILATION 10/2017 GALLBLADDER REMOVED 2018 FAMILY HISTORY FATHER: 70 YRS MOTHER: 83 YRS 3 SON(S) , 1 DAUGHTER(S) . FATHER OF CVA\\\\\\\\\\\\\\\\NMOTHER OF COMPLICATIONS OF DIABETES\\\\\\\\\\\\\\\\N4 SIBLINGS, AT LEAST 2 ARE DIABETIC1 SON ARTHRITIS, PACEMAKER1 SON LEUKEMIA THAT IS IN REMISSION1 SON BACK PROBLEMSDAUGHTER-NOT SURE OF HISTORY. SOCIAL HISTORY GENERAL: TOBACCO USE ARE YOU A:FORMER SMOKER HOW LONG HAS IT BEEN SINCE YOU LAST SMOKED?> 10 YEARS MALES, AGE 65-75 WITH 5 PACK SMOKING HISTORY (100 CIGARETTES LIFETIME) QUIT 40 YRS AGO LATEX QUESTIONNAIRE LATEX ALLERGY : HAVE YOU EVER DEVELOPED ANY TYPE OF REACTION AFTER HANDLING LATEX PRODUCTS SUCH RUBBER GLOVES, CONDOMS, DIAPHRAGMS, BALLOONS, SOCKS, OR UNDERWEAR?NO LATEX ALLERGY : HAVE YOU EVER DEVELOPED ANY TYPE OF REACTION DURING OR AFTER DENTAL APPOINTMENT, VAGINAL/RECTAL EXAMINATION, SURGICAL PROCEDURE, OR ANY OTHER EXPOSURE?NO LATEX RISK : HAVE YOU EVER HAD ANY DIFFICULTY BREATHING OR HIVES AFTER EATING OR HANDLING ANY FRUITS, OR VEGETABLES; SUCH KIWI, BANANAS, STONE FRUITS, OR CHESTNUTSNO LATEX RISK : DO YOU HAVE A PREVIOUS PERSONAL HISTORY OF MORE THAN NINE SURGERIES, SPINA BIFIDA, OR REPEATED CATHERIZATIONS? YES - PLEASE INDICATE : > 9 SURGERIES LATEX RISK : ARE YOU FREQUENTLY EXPOSED TO LATEX PRODUCTS IN YOUR OCCUPATION?NO DATE ASKED : 01/23/2020 BMI CARE GOAL FOLLOW-UP ABOVE NORMAL BMI FOLLOW-UPDIETARY MANAGEMENT EDUCATION, GUIDANCE, AND COUNSELING ALCOHOL SCREENING DID YOU HAVE A DRINK CONTAINING ALCOHOL IN THE PAST YEAR?NO POINTS0 INTERPRETATIONNEGATIVE RECREATIONAL DRUG USE DRUG USE?NO CAFFEINE CAFFEINE USE?YES HOW OFTEN AND HOW MUCH? COFFEE SEXUAL HX HAD SEX IN THE LAST 12 MONTHS (VAGINAL, ORAL, OR ANAL)?NO HAVE YOU EVER HAD AN STD?NO HIV / HEP-C SCREENING HIV TEST OFFERED TO PATIENT:YES DATE OFFERED:11/01/2017 TEST ACCEPTED:NO HEP-C TEST OFFERED TO PATIENT:YES DATE OFFERED:11/01/2017 REASON:PATIENT DECLINED TEST ACCEPTED:NO REASON:PATIENT DECLINED BROCHURE PROVIDED TO PATIENTYES ANGLICAN ANGLICAN NO RESTORATION BELIEFS THAT WOULD IMPACT HEALTH CARE. 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 DIET: REGULAR. EXERCISE: NO REGULAR EXERCISE. MARITAL STATUS: WITH 4 CHILDREN. PAIN CLINIC PFS, CLERGY, PUBLIC HEALTH REFERRALS WAS THE PROVIDER NOTIFIED OF ANY PERTINENT INFO?YES HAS THE PATIENT BEEN EDUCATED REGARDING HIS/HER PLAN OF CARE?YES HAS THE PATIENT BEEN EDUCATED REGARDING PAIN, THE RISK FOR PAIN, THE IMPORTANCE OF EFFECTIVE PAIN MANAGEMENT, AND THE PAIN ASSESSMENT PROCESS?YES HOUSING: RENTS APARTMENT. ADVANCE DIRECTIVE ADVANCE DIRECTIVE DISCUSSED WITH PATIENT:YES HAS HCP-SPOUSE - LUIS JACKSON - [phone], SON - MAGUI JACKSON HOSPITALIZATION/MAJOR DIAGNOSTIC PROCEDURE PANCREATITIS 12/12/2015 [facility] ER- CHOLECYSTITIS-CHRONIC 06/01/2016 CARE IN [place]-URI 07/2017 [facility] HOSPITAL-RIGHT LUMBAR RADICULOPATHY 02/26-03/02/2018 [facility] PNEUMONIA, COPD 06/27-06/28/2019 PNEUMONIA, CHF 2019 RIGHT LEG ANGIO /2019 REVIEW OF SYSTEMS CONSTITUTIONAL: ANY RECENT FEVER NO . CHILLS NO . WEIGHT CHANGE OF UNKNOWN REASONS NO . GASTROENTEROLOGY: NEW UNEXPLAINABLE CHANGES IN BOWEL CONTROL NO . CONSTIPATION NO . GENITOURINARY: ANY NEW CHANGE IN BLADDER CONTROL? NO . NEUROLOGY: NEW ONSET DIZZINESS OR NEUROLOGICAL CHANGES NOT MENTIONED NO . NEW NUMBNESS OR PAIN PATTERNS NOT MENTIONED AND PERTINENT TO TODAY'S VISIT NO . CARDIOLOGY: NEW CHEST PRESSURE NO . NEW CHEST PAIN NO . RESPIRATORY: UNEXPLAINABLE COUGH NO . NEW SHORTNESS OF BREATH NO . VITAL SIGNS WT 214.6 LBS, HT 62 IN, BMI 39.25 INDEX, BP 158/69 MM HG, HR 83 /MIN, RR 18 /MIN, TEMP 97.6 F, OXYGEN SAT % 96%, SAFE IN ENV? (Y/N) Y, NA INITIALS SC 10:05, REVIEWED BY: MARIAM. EXAMINATION GENERAL EXAMINATION: GENERAL AWAKE,ALERT ,PLEAASANT . PSYCH AFFECT NORMAL . LUNGS: LUNG QUESADA ARE CLEAR TO AUSCULTATION BILATERALLY. GOOD MOVEMENT OF AIR . HEART: S1, S2 IN A REGULAR RATE AND RHYTHM. NO SIGNIFICANT MURMURS, RUBS OR GALLOPS NOTED . MUSCULOSKELETAL: MUSCLE STRENGTH TESTING 4/5 BILATERAL LOWER EXTREMITIES. LUMBAR: TRIGGER POINTS:, ELICITED WITH PALPATION OVER RIGHT UPPER LUMBAR PARAVERTEBRAL MUSCLES.. ASSESSMENTS SACROILIITIS, NOT ELSEWHERE CLASSIFIED - M46.1 (PRIMARY) MYALGIA, OTHER SITE - M79.18 TREATMENT SACROILIITIS, NOT ELSEWHERE CLASSIFIED NOTES: PATIENT WILL HAVE RIGHT LUMBAR PARASPINAL TENDERNESS EVALUATED BY PRIMARY CARE TOMORROW. I WILL SEE HER BACK AT CLINIC IN 6-8 WEEKS TO EVALUATE AND POSSIBLY SCHEDULE TRIGGER POINT INJECTIONS. PREVENTIVE MEDICINE PAIN CLINIC TEACHING: THE PATIENT HAS BEEN EDUCATED REGARDING PAIN, THE RISK FOR PAIN, THE IMPORTANCE OF EFFECTIVE PAIN MANAGEMENT, AND THE PAIN ASSESSMENT PROCESS. : REVIEWED VERBAL DISCHARGE INSTRUCTIONS WITH PATIENT, PT ACKNOWLEDGED UNDERSTANDING,. DS PROCEDURE CODES FA211 ESTABILISHED PATIENT [facility] CHARGE DISPOSITION & COMMUNICATION FOLLOW UP 6-8 WEEKS (REASON: LOW BACK PAIN) ELECTRONICALLY SIGNED BY ANALILIA APONTE ON 01/26/2020 AT 09:02 AM EDT DISCLAIMER : THIS IS A VISIT SUMMARY EXTRACTED FROM THE ECLINICALWORKS CHART. IT IS NOT A COPY OF THE ECLINICALWORKS PROGRESS NOTE. MATHEW
== END ==
LOC: M PAIN 10:15
PROVIDERS: ATTEND Nurse Practitioner Family
DX: M46.1 Sacroiliitis, not elsewhere classified (principal); M79.18 Myalgia, other site

== ENCOUNTER → 2020-01-24 | Outpatient (REF) | payer MEDICARE, MEDICAID ==
[2020-01-24 18:03] LABS: APPEARANCE, URINE CLEAR (CLEAR); BACTERIA, URINE AUTO NEGATIVE (NEGATIVE); BILIRUBIN, URINE AUTO NEGATIVE (NEGATIVE); BLOOD, URINE BLOOD NEGATIVE (NEGATIVE); COLOR, URINE YELLOW (YELLOW); GLUCOSE, URINE (UA) AUTO NEGATIVE (NEGATIVE); KETONE, URINE AUTO NEGATIVE (NEGATIVE); LEUKOCYTE ESTERASE, URINE AUTO NEGATIVE (NEGATIVE); NITRITE, URINE AUTO NEGATIVE (NEGATIVE); PROTEIN, URINE AUTO NEGATIVE (NEGATIVE); RBC, URINE AUTO 0 /HPF (0-3); SQUAMOUS EPITHELIAL CELL UR AU 1 /HPF (0-6); UROBILINOGEN, URINE AUTO 0.2 mg/dL (0.0-2.0); WBC, URINE AUTO 0 /HPF (0-3)
== END ==
LOC: M LAB REF 16:51
PROVIDERS: ATTEND Internal Medicine
DX: R10.9 Unspecified abdominal pain (principal)
CPT/HCPCS: 81001; 87086; G0463

== ENCOUNTER → 2020-01-29 | Outpatient (CLI) | payer MEDICARE, MEDICAID ==
--- NOTE | 2020-01-29 15:03 | REP ---
Clinical: Right flank pain. Technique: Real time vaz scale and color evaluation using curved array transducer. Findings: The kidneys demonstrate increased parenchymal echotexture and increased central sinus fat consistent with chronic age-related renal disease. The right kidney measures 11.1 x 6.0 x 5.1 cm and includes multiple cysts including 1.2 cm upper pole, 1.1 cm mid pole, and 3.5 cm lower pole cysts. A 6 mm nonobstructing intrarenal calculus is suggested. No hydronephrosis. The left kidney measures 12.0 x 6.2 x 4.6 cm and includes 2.3 cm upper pole and lower pole cysts. No nephrolithiasis or hydronephrosis noted. Impression: 1. Age-related medical renal disease and bilateral renal cysts. 2. 6 mm nonobstructing right renal calculus. 3. No evidence for hydronephrosis.
== END ==
LOC: M WHC 12:55
PROVIDERS: ATTEND Internal Medicine
DX: N20.0 Calculus of kidney (principal); N18.9 Chronic kidney disease, unspecified; R10.9 Unspecified abdominal pain

== ENCOUNTER → 2020-01-29 | Outpatient (CLI) | payer MEDICARE, MEDICAID ==
--- NOTE | 2020-01-29 13:40 | REPMRS ---
Patient History The patient states she had a clinical breast exam in June 2019. Family history of unknown cancer under age 50 in son. Benign excisional biopsy of the left breast. Took unspecified hormones for 2 years. Diagnostic Bilateral Mammo: January 29, 2020 - Exam #: [id number] Bilateral CC and MLO view(s) were taken. Technologist: Heidy Peter, Technologist Prior study comparison: October 13, 2018, bilateral digital woman screen mammo performed at [facility]. June 30, 2017, bilateral digital mammo screening bilat, performed at [facility]. June 29, 2016, bilateral digital mammo screening bilat, performed at [facility]. FINDINGS: There are scattered fibroglandular densities. The Volpara volumetric breast density category is:B. There has been no change in the appearance of the mammogram from the prior studies. There is a mild amount of scattered fibroglandular density which is fairly symmetric. There is no interval development of dominant mass, architectural distortion, or grouped microcalcification suggestive of malignancy. 3-D tomosynthesis shows no additional findings. Assessment: BI-RADS/ACR category 1 mammogram. Negative Mammogram. Recommendation Routine screening mammogram of both breasts in 1 year (for women over age 40). This patient's Lifetime Breast Cancer Risk is estimated at 3.7 %. This mammogram was interpreted with the aid of an FDA-approved computer-aided dectection system. Electronically Signed By: Froy Mohr MD 01/29/20 2097
== END ==
LOC: M WHC 12:46
PROVIDERS: ATTEND Obstetrics & Gynecology
DX: N64.4 Mastodynia (principal)
CPT/HCPCS: 76775; 77066; G0279

== ENCOUNTER → 2020-03-14 | Outpatient (REF) | payer MEDICARE, MEDICAID ==
[2020-04-18 07:07] LABS: HEMATOCRIT 30.9 % (36.0-47.0); HEMOGLOBIN 9.5 g/dl (12.0-15.5); MEAN CORPUSCULAR HEMOGLOBIN 28.6 pg (27.0-33.0); MEAN CORPUSCULAR HGB CONC 30.7 g/dl (32.0-36.5); MEAN CORPUSCULAR VOLUME 93.1 fl (80.0-96.0); PLATELET COUNT, AUTOMATED 221 10^3/uL (150-450); RED BLOOD COUNT 3.32 10^6/uL (4.00-5.40); WHITE BLOOD COUNT 7.8 10^3/uL (4.0-10.0)
[2020-04-29 10:58] LABS: BILIRUBIN,TOTAL 0.2 MG/DL (0.2-1.0); CALCIUM LEVEL 9.3 MG/DL (8.8-10.2); CHOLESTEROL RISK RATIO 3.294 (<5); CREATININE FOR GFR 1.52 MG/DL (0.55-1.30); GLOMERULAR FILTRATION RATE 35.5 (>39); POTASSIUM SERUM 3.9 MEQ/L (3.5-5.1); PTH INTACT 24.9 PG/ML (18.5-88.0); THYROID STIMULATING HORMONE 0.454 uIU/ML (0.358-3.740); TOTAL PROTEIN 5.9 GM/DL (6.4-8.2); URIC ACID 4.9 MG/DL (2.6-6.0)
[2020-04-29 10:59] LABS: HEMOGLOBIN A1c 6.2 %; MALB URINE SIEMENS 52.6 MG/L
== END ==
LOC: M SFHCPLAZ 12:11
PROVIDERS: ATTEND Internal Medicine
DX: Z00.00 Encounter for general adult medical examination without abnormal findings (principal); E11.21 Type 2 diabetes mellitus with diabetic nephropathy; N18.3 Chronic kidney disease, stage 3 (moderate); D63.8 Anemia in other chronic diseases classified elsewhere; E03.9 Hypothyroidism, unspecified; M10.9 Gout, unspecified; E78.00 Pure hypercholesterolemia, unspecified

== ENCOUNTER → 2020-03-18 | Outpatient (CLI) | payer MEDICARE, MEDICAID ==
--- NOTE | 2020-04-25 11:35 | REP ---
BILATERAL ARTERIAL DOPPLER ULTRASOUND LOWER EXTREMITIES HISTORY: Claudication. FINDINGS: Ankle brachial indices could not be accomplished on either side due to noncompressible vessels. There is [id number] plaquing seen throughout the lower extremity arteries. Relatively normal biphasic and triphasic waveforms are noted throughout. No high-grade stenosis is seen. No evidence of occlusion. BILATERAL LOWER EXTREMITY ATERIAL DOPPLER VELOCITY CHART PSV RIGHT (cm/s) PSV LEFT (cm/s) CVA 110 113 Profunda 87 127 Proximal SFA 106 95 Mid-SFA 105 70 Distal SFA 64 46 Popliteal 84 71 Proximal MASHA 31 69 Tibioperoneal trunk 65 71 Proximal PLAN MANAGER 56 44 Distal PLAN MANAGER 108 42 Distal MASHA 18 65 MTDD
== END ==
LOC: M RAD 12:34
PROVIDERS: ATTEND Physician Assistant
DX: I70.213 Atherosclerosis of native arteries of extremities with intermittent claudication, bilateral legs (principal)

== ENCOUNTER → 2020-03-25 | Outpatient (CLI) | payer MEDICARE, MEDICAID | LOC: M PAIN 14:31 | PROVIDERS: ATTEND Nurse Practitioner Family | DX: M46.1 Sacroiliitis, not elsewhere classified (principal) ==

== ENCOUNTER → 2020-04-17 | Outpatient (CLI) | payer MEDICARE, MEDICAID | LOC: M LABSMTC 11:15 | PROVIDERS: ATTEND Anesthesiology | DX: Z20.828 Contact with and (suspected) exposure to other viral communicable diseases (principal) | CPT/HCPCS: C9803; U0003 ==

== ENCOUNTER → 2020-04-22 | Outpatient (CLI) | payer MEDICARE, MEDICAID ==
[~2020-04-22] MED LIST changes: +BUPIVACAINE HCL 0.25% 30ML VIAL As Ordered ONE; +ISOVUE-M 300 61% 15ML VIAL As Ordered ONE; +LIDOCAINE 1% SDV 30ML VIAL As Ordered ONE; +TRIAMCINOLONE ACETONIDE SUSP 40 MG/ML VIAL (J3301) As Ordered ONE
--- NOTE | 2020-05-02 09:43 | REP ---
FLUORO-GUIDED STUDY CLINICAL: Sacroiliac joint injection. TECHNIQUE: Intraoperative fluoroscopic imaging using portable C-arm technique. FINDINGS: Images demonstrate catheters overlying the bilateral sacroiliac joints. Total fluoroscopic time 43 seconds. IMPRESSION: Catheters overlying the bilateral sacroiliac joints in seemingly appropriate position. MTDD
== END ==
LOC: M PAIN 10:30
PROVIDERS: ATTEND Anesthesiology
DX: M46.1 Sacroiliitis, not elsewhere classified (principal)
CPT/HCPCS: 76000; G0260; G0463; J3301; Q9967

== ENCOUNTER → 2020-05-08 | Outpatient (CLI) | payer MEDICARE, MEDICAID ==
[~2020-05-08] MED LIST changes: -BUPIVACAINE HCL 0.25% 30ML VIAL As Ordered ONE; -ISOVUE-M 300 61% 15ML VIAL As Ordered ONE; -LIDOCAINE 1% SDV 30ML VIAL As Ordered ONE; -TRIAMCINOLONE ACETONIDE SUSP 40 MG/ML VIAL (J3301) As Ordered ONE
--- NOTE | 2020-05-14 14:04 | ECWPNPC ---
PATIENT NAME: YESICA JACKSON : 1945 GENDER: FEMALE VISIT DATE: 05/08/2020 DISCHARGE DATE: 05/08/20 1439 VISIT LOCKED DATE TIME: PHYSICIAN: LUCAS LOZANO PHYSICIAN PAGER NO: ACTIVE RESOURCE: LUCAS LOZANO REASON FOR APPOINTMENT 1. POST PROCEDURE HISTORY OF PRESENT ILLNESS PAIN CENTER INTAKE QUESTIONS: HERE FOR POST PROCEDURE FOLLOW-UP. HAD BILATERAL SIJ ON 04/03/2020. REPORTS 2 DAYS OF IMPROVEMENT AND THEN PAIN RETURNED TO BASELINE. PAIN HAS BEEN SEVERE LATELY. REPORTING NEW ONSET OF LEG WEAKNESS AND URINARY INCONTINENCE. RATING PAIN LEVEL /X VAS. REVIEWED MRI OF THE LS-SPINE AND DISCUSS TREATMENT OPTIONS. GENERAL: -. FALL RISK SCREENING: SCREENING :NO FALLS REPORTED IN THE LAST YEAR PAIN SCREENING: PATIENT HAS A COMPLAINT OF ACUTE OR CHRONIC PAIN :YES LOCATION OF PAIN:LOW BACK INTENSITY OF PAIN (SCALE OF 1 TO 10):6 WHAT DOES YOUR PAIN FEEL LIKE:SHARP, SHOOTING NURSING NOTE: -. CURRENT MEDICATIONS TAKING XANAX 0.25 MG TABLET 1 TABLET ORALLY DAILY TAKING ZOLOFT 100 MG TABLET 1 AND 1/2 TABLET ORALLY ONCE A DAY TAKING CYANOCOBALAMIN 1000 MCG TABLET 1 TABLET ORALLY ONCE A DAY TAKING MAY HAVE - - HAND RAIL BY TOILET _ DAILY. DX: M19.90 TAKING CLOTRIMAZOLE 10 MG LOZENGE 1 CLINT MOUTH/THROAT FIVE TIMES A DAY NEEDED TAKING INCRUSE ELLIPTA 62.5 MCG/INH AEROSOL POWDER BREATH ACTIVATED 1 PUFF INHALATION ONCE A DAY TAKING ALBUTEROL SULFATE (2.5 MG/3ML) 0.083% NEBULIZATION SOLUTION 3 ML NEEDED INHALATION EVERY 4 HOURS NEEDED FOR SOB/COUGH/WHEEZE TAKING BUSPIRONE HCL 15 MG TABLET 1 TABLET ORALLY TWICE A DAY TAKING LOSARTAN POTASSIUM 50 MG TABLET 1 TABLET ORALLY ONCE A DAY TAKING LANCETS _ MISCELLANEOUS DIRECTED DX: E11.21 FOUR TIMES A DAY TAKING BLOOD GLUCOSE TEST STRIP _ STRIP ONE TOUCH ULTRA 2 IN VITRO, DX: E11.21 FOUR TIMES A DAY TAKING ADVAIR DISKUS 500-50 MCG/DOSE AEROSOL POWDER BREATH ACTIVATED 1 PUFF INHALATION TWICE A DAY TAKING PEN NEEDLES 316" 31G X 5 MM MISCELLANEOUS BD ULTRA FINE SUBCUTANEOUSLY TWICE A DAY DX: E11.9 TAKING FLONASE 50 MCG/ACT SUSPENSION 2 SPRAYS IN EACH NOSTRIL NASALLY ONCE A DAY TAKING CALCITRIOL 0.5 MCG CAPSULE 1 CAPSULE ORALLY ONCE A DAY TAKING LIPITOR 40 MG TABLET 1 TABLET ORALLY ONCE A DAY TAKING HOSPITAL BED DIRECTED WITH MATTRECAROL M54.16 TAKING VENTOLIN HFA 108 (90 BASE) MCG/ACT AEROSOL SOLUTION 2 PUFFS INHALATION EVERY 4 HOURS NEEDED FOR SOB, COUGH, WHEEZE TAKING NYSTATIN 188577 UNIT/GM POWDER 1 APPLICATION TO AREA UNDER BREAST EXTERNALLY TWICE A DAY TAKING LASIX 40 MG TABLET 1 TAB ORALLY TWICE DAILY TAKING ALLOPURINOL 300 MG TABLET 1 TABLET ORALLY ONCE A DAY TAKING OMEPRAZOLE 40 MG CAPSULE DELAYED RELEASE 1 CAPSULE ORALLY TWICE A DAY TAKING FERROUS GLUCONATE 324 (38 FE) MG TABLET 1 TABLET ORALLY EVERY OTHER DAY TAKING GABAPENTIN 300 MG CAPSULE 1 CAPSULE ORALLY THREE TIMES DAILY TAKING LEVEMIR FLEXTOUCH 100 UNIT/ML SOLUTION PEN-INJECTOR 14 UNITS SUBCUTANEOUS DAILY--TAKE IN THE AM TAKING LEVOTHYROXINE SODIUM 150 MCG TABLET 1 TABLET ON AN EMPTY STOMACH IN THE MORNING ORALLY ONCE A DAY TAKING FOLIC ACID 1 MG TABLET 1 TABLET ORALLY ONCE A DAY TAKING SINGULAIR 10 MG TABLET 1 TABLET IN THE EVENING ORALLY ONCE A DAY TAKING GLIPIZIDE-METFORMIN HCL 5-500 MG TABLET 1 TABLET ORALLY DAILY AT SUPPER TAKING DEPEND PANT EXTRA LARGE 1 EA UNDERGARMENTS EXTRA LARGE. 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 CHRONIC KIDNEY DISEASE, STAGE 3 (MODERATE) HYPOTHYROIDISM, UNSPECIFIED HYPERCHOLESTEROLEMIA ANEMIA IN OTHER CHRONIC DISEASES CLASSIFIED ELSEWHERE CHRONIC OBSTRUCTIVE PULMONARY DISEASE, UNSPECIFIED OTHER DIABETIC NEUROLOGICAL COMPLICATION ASSOCIATED WITH TYPE 2 DIABETES MELLITUS LOCALIZED EDEMA GASTRO-ESOPHAGEAL REFLUX DISEASE WITHOUT ESOPHAGITIS SLEEP APNEA, UNSPECIFIED DYSTHYMIC DISORDER GOUT, UNSPECIFIED VITAMIN D DEFICIENCY, UNSPECIFIED ESOPHAGEAL OBSTRUCTION GASTROPARESIS PSEUDOGOUT PRIMARY OSTEOARTHRITIS, RIGHT HAND B12 DEFICIENCY PRIMARY OSTEOARTHRITIS OF LEFT HAND RIGHT LUMBAR RADICULOPATHY INFECTION RIGHT HAND FROM CAT BITE ALLERGIES ACTOS: CHF - ALLERGY PENICILLIN (FOR ALLERGIES USE ONLY): RASH - ALLERGY BYETTA 10 MCG PEN: VERY SICK - ALLERGY TRAMADOL: ITCH - ALLERGY SULFA (FOR ALLERGY USE ONLY): ITCH - ALLERGY SURGICAL HISTORY BILATERAL HIP OPERATIONS ON SIX DIFFERENT OCCASIONS, INITIALLY STARTING AT AGE 10 WHEN SHE HAD SLIPPED CAPITAL FEMORAL EPIPHYSES AGE 10 TUBAL LIGATION IN THE 1969'S 06/22/1972 LEFT KNEE REPLACED 2000? C-SPINE DISCECTOMY AND DONOR GRAFT AT C5 2001 HYSTERECTOMY WITH BLADDER REPAIR FOR VAGINAL BLEEDING 2004 HERNIA REPAIR, REPAIR OF THREE DIFFERENT ABDOMINAL HERNIAS RIGHT CARPAL TUNNEL SURGERY AND RIGHT ULNAR NERVE TRANSPOSITION 2004 COLONOSCOPY 2008 LEFT NIPPLE BREAST BIOPSY 2008 COLONOSCOPY 2009 COLONOSCOPY 2013 LEFT SHOULDER REPLACEMENT 10/27/2013 LAPAROSCOPIC CHOLECYSTECTOMY 07/21/2016 BILATERAL CATARACT SURGERY-DR. GAMBOA 06/09 AND 06/16/2017 UPPER ENDOSCOPY WITH ESOPHAGEAL DILATION 10/2017 GALLBLADDER REMOVED 2018 FAMILY HISTORY FATHER: 70 YRS MOTHER: 83 YRS 3 SON(S) , 1 DAUGHTER(S) . FATHER OF CVA\\\\\\\\\\\\\\\\NMOTHER OF COMPLICATIONS OF DIABETES\\\\\\\\\\\\\\\\N4 SIBLINGS, AT LEAST 2 ARE DIABETIC1 SON ARTHRITIS, PACEMAKER1 SON LEUKEMIA THAT IS IN REMISSION1 SON BACK PROBLEMSDAUGHTER-NOT SURE OF HISTORY. SOCIAL HISTORY GENERAL: TOBACCO USE ARE YOU A:FORMER SMOKER HOW LONG HAS IT BEEN SINCE YOU LAST SMOKED?> 10 YEARS MALES, AGE 65-75 WITH 5 PACK SMOKING HISTORY (100 CIGARETTES LIFETIME) QUIT 40 YRS AGO LATEX QUESTIONNAIRE LATEX ALLERGY : HAVE YOU EVER DEVELOPED ANY TYPE OF REACTION AFTER HANDLING LATEX PRODUCTS SUCH RUBBER GLOVES, CONDOMS, DIAPHRAGMS, BALLOONS, SOCKS, OR UNDERWEAR?NO LATEX ALLERGY : HAVE YOU EVER DEVELOPED ANY TYPE OF REACTION DURING OR AFTER DENTAL APPOINTMENT, VAGINAL/RECTAL EXAMINATION, SURGICAL PROCEDURE, OR ANY OTHER EXPOSURE?NO DATE ASKED : 01/23/2020 LATEX RISK : HAVE YOU EVER HAD ANY DIFFICULTY BREATHING OR HIVES AFTER EATING OR HANDLING ANY FRUITS, OR VEGETABLES; SUCH KIWI, BANANAS, STONE FRUITS, OR CHESTNUTSNO LATEX RISK : DO YOU HAVE A PREVIOUS PERSONAL HISTORY OF MORE THAN NINE SURGERIES, SPINA BIFIDA, OR REPEATED CATHERIZATIONS? YES - PLEASE INDICATE : > 9 SURGERIES LATEX RISK : ARE YOU FREQUENTLY EXPOSED TO LATEX PRODUCTS IN YOUR OCCUPATION?NO BMI CARE GOAL FOLLOW-UP ABOVE NORMAL BMI FOLLOW-UPDIETARY MANAGEMENT EDUCATION, GUIDANCE, AND COUNSELING ALCOHOL SCREENING DID YOU HAVE A DRINK CONTAINING ALCOHOL IN THE PAST YEAR?NO POINTS0 INTERPRETATIONNEGATIVE RECREATIONAL DRUG USE DRUG USE?NO CAFFEINE CAFFEINE USE?YES HOW OFTEN AND HOW MUCH? COFFEE SEXUAL HX HAD SEX IN THE LAST 12 MONTHS (VAGINAL, ORAL, OR ANAL)?NO HAVE YOU EVER HAD AN STD?NO HIV / HEP-C SCREENING HIV TEST OFFERED TO PATIENT:YES DATE OFFERED:11/01/2017 TEST ACCEPTED:NO HEP-C TEST OFFERED TO PATIENT:YES DATE OFFERED:11/01/2017 REASON:PATIENT DECLINED TEST ACCEPTED:NO REASON:PATIENT DECLINED BROCHURE PROVIDED TO PATIENTYES YARSANISM YARSANISM NO PRESYBETERIAN BELIEFS THAT WOULD IMPACT HEALTH CARE. 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 DIET: REGULAR. EXERCISE: NO REGULAR EXERCISE. MARITAL STATUS: WITH 4 CHILDREN. PAIN CLINIC PFS, CLERGY, PUBLIC HEALTH REFERRALS WAS THE PROVIDER NOTIFIED OF ANY PERTINENT INFO?YES HAS THE PATIENT BEEN EDUCATED REGARDING HIS/HER PLAN OF CARE?YES HAS THE PATIENT BEEN EDUCATED REGARDING PAIN, THE RISK FOR PAIN, THE IMPORTANCE OF EFFECTIVE PAIN MANAGEMENT, AND THE PAIN ASSESSMENT PROCESS?YES HOUSING: RENTS APARTMENT. ADVANCE DIRECTIVE ADVANCE DIRECTIVE DISCUSSED WITH PATIENT:YES HAS HCP-SPOUSE - LUIS YOUSSEFRATH - [phone], SON - MAGUI JACKSON HOSPITALIZATION/MAJOR DIAGNOSTIC PROCEDURE PANCREATITIS 12/12/2015 [facility]- CHOLECYSTITIS-CHRONIC 06/01/2016 [facility] [place] 07/2017 [facility]-RIGHT LUMBAR RADICULOPATHY 02/26-03/02/2018 [facility] PNEUMONIA, COPD 06/27-06/28/2019 PNEUMONIA, CHF 2019 RIGHT LEG ANGIO /2020 REVIEW OF SYSTEMS CONSTITUTIONAL: ANY RECENT FEVER NO . CHILLS NO . WEIGHT CHANGE OF UNKNOWN REASONS NO . GASTROENTEROLOGY: NEW UNEXPLAINABLE CHANGES IN BOWEL CONTROL NO . CONSTIPATION NO . GENITOURINARY: ANY NEW CHANGE IN BLADDER CONTROL? NEW-ONSET URINARY INCONTINENCE . NEUROLOGY: NEW ONSET DIZZINESS OR NEUROLOGICAL CHANGES NOT MENTIONED NO . NEW NUMBNESS OR PAIN PATTERNS NOT MENTIONED AND PERTINENT TO TODAY'S VISIT INCREASE IN LEG WEAKNESS . CARDIOLOGY: NEW CHEST PRESSURE NO . NEW CHEST PAIN NO . RESPIRATORY: UNEXPLAINABLE COUGH NO . NEW SHORTNESS OF BREATH NO . VITAL SIGNS WT 209.8 LBS, HT 62 IN, BMI 38.37 INDEX, BP 152/65 MM HG, HR 102 /MIN, RR 18 /MIN, TEMP 97.1 F, OXYGEN SAT % 97%, NA INITIALS AW 1350. EXAMINATION GENERAL EXAMINATION: GENERAL AWAKE,ALERT ,PLEAASANT . PSYCH AFFECT NORMAL . LUNGS: LUNG QUESADA ARE CLEAR TO AUSCULTATION BILATERALLY. GOOD MOVEMENT OF AIR . HEART: S1, S2 IN A REGULAR RATE AND RHYTHM. NO SIGNIFICANT MURMURS, RUBS OR GALLOPS NOTED . MUSCULOSKELETAL: MUSCLE STRENGTH TESTING 4/5 BILATERAL LOWER EXTREMITIES. LUMBAR: TRIGGER POINTS:, ELICITED WITH PALPATION OVER RIGHT UPPER LUMBAR PARAVERTEBRAL MUSCLES.. ASSESSMENTS DEGENERATIVE LUMBAR SPINAL STENOSIS - M48.061 (PRIMARY) LUMBOSACRAL RADICULOPATHY - M54.17 TREATMENT DEGENERATIVE LUMBAR SPINAL STENOSIS [facility] MRI LUMBAR W/O CONTRAST (CPT 21815)[id number] REFERRAL TO:[facility] REASON:SEVERE L/S SPINAL STENOSIS.NEW ONSET OF URINARY INCONTINENECE AND INCREASE IN LEFT LEG WEAKNESS LUMBOSACRAL RADICULOPATHY [facility] MRI LUMBAR W/O CONTRAST (CPT 91891)[id number] PROCEDURE CODES FA211 ESTABILISHED PATIENT [facility] FACILITY CHARGE DISPOSITION & COMMUNICATION FOLLOW UP 2 MONTHS (REASON: MRI EVAL/POST DELORIS BARRIOS) ELECTRONICALLY SIGNED BY ANALILIA APONTE ON 05/14/2020 AT 01:33 PM EDT DISCLAIMER : THIS IS A VISIT SUMMARY EXTRACTED FROM THE [employer] CHART. IT IS NOT A COPY OF THE [employer] PROGRESS NOTE. MATHEW
== END ==
LOC: M PAIN 13:45
PROVIDERS: ATTEND Nurse Practitioner Family
DX: M48.061 Spinal stenosis, lumbar region without neurogenic claudication (principal); M54.17 Radiculopathy, lumbosacral region; E11.22 Type 2 diabetes mellitus with diabetic chronic kidney disease; N18.30 Chronic kidney disease, stage 3 unspecified; E03.9 Hypothyroidism, unspecified; E78.00 Pure hypercholesterolemia, unspecified; J44.9 Chronic obstructive pulmonary disease, unspecified; K21.9 Gastro-esophageal reflux disease without esophagitis; G47.33 Obstructive sleep apnea (adult) (pediatric); F34.1 Dysthymic disorder; M10.9 Gout, unspecified; E55.9 Vitamin D deficiency, unspecified; M19.041 Primary osteoarthritis, right hand; Z87.891 Personal history of nicotine dependence; Z79.4 Long term (current) use of insulin; Z79.899 Other long term (current) drug therapy; Z88.0 Allergy status to penicillin; Z88.2 Allergy status to sulfonamides; Z88.5 Allergy status to narcotic agent; Z88.8 Allergy status to other drugs, medicaments and biological substances

== ENCOUNTER → 2020-05-22 | Outpatient (CLI) | payer MEDICARE, MEDICAID ==
--- NOTE | 2020-05-22 16:43 | REPVR ---
PROCEDURE INFORMATION: Exam: MR Lumbar Spine Without Contrast. Exam date and time: 05/22/2020 3:30 PM Age: 74 years old Clinical indication: Low back pain; Patient HX: Lbp; Additional info: Stenosis TECHNIQUE: Imaging protocol: Multiplanar magnetic resonance images of the lumbar spine without intravenous contrast. COMPARISON: MRI-Spine, L.S. without con 02/27/2018 3:36 PM FINDINGS: Vertebrae: No acute compression fracture is seen. There is straightening of the normal lumbar lordosis. 4 mm of anterolisthesis of L3 on L4 is present due to severe facet arthropathy. Spinal cord: The conus medullaris terminates at the L1-L2 level. L1-L2: There is disc dehydration, severe disc space narrowing, moderate diffuse circumferential disc bulging, and mild facet arthropathy. This is causing mild spinal canal stenosis, moderate right neural foraminal narrowing, and minimal left neural foraminal narrowing. L2-L3: There is minimal diffuse circumferential disc bulging, thickening of the ligamentum flavum, and mild facet arthropathy. There is no significant spinal canal or right neural foraminal stenosis. Minimal left neural foraminal narrowing is present. L3-L4: There is marked diffuse circumferential disc bulging, prominent posterior epidural fat, thickening of the ligamentum flavum, and severe facet arthropathy. This is causing severe spinal canal stenosis and mild bilateral neural foraminal narrowing. Spinal canal stenosis has increased since the prior exam. L4-L5: There is disc dehydration, moderate disc space narrowing, marked diffuse circumferential disc bulging, a central annular fissure, and a superimposed shallow central disc protrusion. Moderate facet arthropathy and thickening of the ligamentum flavum is also present. This is causing severe spinal canal stenosis and moderate bilateral neural foraminal narrowing. L5-S1: There is obliteration of the disc space with fusion across the disc. Circumferential osteophytic ridging and moderate facet arthropathy is noted. There is no significant spinal canal stenosis. Moderate bilateral neural foraminal narrowing is present. This is unchanged from the prior exam. Soft tissues: Subcutaneous edema is present in the lower back. IMPRESSION: Marked degenerative changes of the lumbar spine as discussed above. Electronically signed by: Ezio Ruth On 05/22/2020 16:43:37 PM
== END ==
LOC: M RAD 14:47
PROVIDERS: ATTEND Nurse Practitioner Family
DX: M48.061 Spinal stenosis, lumbar region without neurogenic claudication (principal); M54.17 Radiculopathy, lumbosacral region; M51.26 Other intervertebral disc displacement, lumbar region; M51.36 Other intervertebral disc degeneration, lumbar region; M25.78 Osteophyte, vertebrae

== ENCOUNTER 2020-09-15 12:58 | Emergency (ER) | payer MEDICARE, MEDICAID ==
[~2020-09-15] VITALS: Ht 152.4 cm; Wt 92.9 kg
[~2020-09-15 12:58] MED LIST changes: -CLIN300C5; +CLIN300C6; +GABA-282 PO; -GABA-843 PO; +MONT10TA10 PO; -MONT10TA4 PO
[2020-09-15] MEDS ORDERED: DOXY100T27 PO (13:25)
[2020-09-15] MEDS ORDERED: PRED20TA PO (13:25)
--- NOTE | 2020-09-15 13:55 | REP ---
INDICATION: nausea. COMPARISON: June 28, 2019.. TECHNIQUE: Semi-erect AP portable exam. FINDINGS: Monitoring electrodes are seen. The patient is status post lower cervical spine discectomy and fusion plating. A prosthetic left shoulder joint is seen. The lungs are well inflated and free of infiltrate. Pleural angles are sharp. Heart size is borderline. Pulmonary vasculature is not increased. No acute bony abnormality is seen. IMPRESSION: No active cardiopulmonary disease seen. Prosthetic left shoulder and cervical spine fusion hardware noted. <Electronically signed by Froy Mohr > 09/15/20 [id number]
[2020-09-15 14:08] LABS: BASO % 0.3 % (0.0-1.0); EOS # 0.2 10^3/uL (0.0-0.5); HEMATOCRIT 30.2 % (36.0-47.0); HEMOGLOBIN 9.4 g/dl (12.0-15.5); LYMPH # 1.9 10^3/uL (1.5-5.0); LYMPH % 18.2 % (24.0-44.0); MEAN CORPUSCULAR HEMOGLOBIN 28.6 pg (27.0-33.0); MEAN CORPUSCULAR HGB CONC 31.1 g/dl (32.0-36.5); MEAN CORPUSCULAR VOLUME 91.8 fl (80.0-96.0); MONO # 0.7 10^3/uL (0.0-0.8); MONO % 7.2 % (2.0-8.0); NEUTROPHILS # 7.3 10^3/uL (1.5-8.5); NEUTROPHILS % 71.9 % (36.0-66.0); PLATELET COUNT, AUTOMATED 231 10^3/uL (150-450); RED BLOOD COUNT 3.29 10^6/uL (4.00-5.40); WHITE BLOOD COUNT 10.2 10^3/uL (4.0-10.0)
--- OUTSIDE RECORDS SUMMARY | 2020-09-15 14:18 | CCD ---
Author Author [facility] Organization [facility] Address Unknown Phone Unavailable Care Team Providers Care Machine Clipper Name Role Phone Morteza Lopez Unavailable PROBLEMS Type Condition ICD9-CM Code YAZ00-IS Code Onset Dates Condition S tatus W/U Status Risk SNOMED Code Notes Problem Chronic heart failure with preserved ejection fraction I50.32 Active confirmed [id number] There was the castaneda spicion that she had decompensated CHF during her June 2019 hospital stay. She had an echocardiogram which showed a left ventricular ejection fraction of 60-65% in her IVC was normal but she had evidence for elevated pulmonary pressures. Her BNP level was only modestly elevated at 645 during the hospital stay. She remains on Lasix. She had a follow-up echocardiogram in September 2019. Problem Hypercholesterolemia E78.00 Active confirmed 19753453 Her lipids are borderline controlled as of 03/2020 on Lipitor 40 mg daily; TGs were elevated. Problem Gastroparesis K31.84 Active confirmed 575677 [id number] Gastroparesis was identified on upper endoscopy in April 2012. There is little therapy to offer because Reglan which causes parkinsonism. She declines this. Her condenser setter is assisting with this. He has recommended high-dose MiraLax therapy to her, and advises chronic PPI therapy (Dr. Messer). Problem Gout, unspecified M10.9 Active confirmed 90 329900 Uric acid controlled on medication (last uric acid level was 5.1 in 01/2019). Takes allopurinol since about April 2007. Problem Primary osteoarthritis of left hand M19.042 Acti ve confirmed [id number] Try Voltaren gel. 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 She sees a assembler 1st shift regularly. Problem Dysthymic disorder F34.1 Active confirmed 7 8241084 On Buspar instead of imipramine), Zoloft and Xanax (dose reduced in August 2019). Sees a mental health provider monthly and her Zoloft was increased to 100 mg daily in October 2011. TSH was normal in 01/2019. Problem Sleep apnea, unspecified G47.30 Active confirmed 48129688 Had sleep study in Summer 2012. She has been prescribed BiPAP but does not tolerate it. Her maths tutor is aware. Problem Hypothyroidism, unspecified E03.9 Active confirmed 40592305 Her current thyroid replacement dose is 175 mcg daily, skipping 1 dose a week. Her most recent TSH was 0.454 in 03/2020. Problem Vitamin D deficiency, unspecified E55.9 Active con firmed 25028149 Discovered 12/07. Last Vitamin D level was greater than 100 in August 2017. I stopped her weekly Drisdol and placed her on calcitriol because of an elevated PTH then. A follow-up vitamin D level in September 2018 was 37. Problem Localized edema R60.0 Active confirmed 4327 54869 Lasix 40 mg twice daily is now controlling edema. There has been a dose increase somehow over the course of Fall 2017 She was on 80 mg twice daily until her hospitalization in 05/2016. Support stockings encouraged, along with leg elevation. I increased her Lasix to 80 mg in the AM on Wed/Wed/Wed, 40 mg in the AM //Sat Sun, and maintained 40 mg in the afternoon, as of 11/01/2017; she had since been hospitalized in January 2018 and is now on 40 mg twice daily although her discharge summary indicates that she was only on 40 mg daily at discharge. Problem Anemia in other chronic diseases classified elsewhere D63.8 Active confirmed 513232711 Patient's anemia is chronic and likely relates to chronic disease, and she also has a prior history of iron deficiency. CBC had been stable, and most recently her hemoglobin was 9.1 in September 2019, 9.2 in September 2018, 8.1 in January 2019. She does not tolerate oral iron well but it was restarted in the hospital March 2018, and continues that every other day, although I did not find the serologies to be terribly impressive. She required a transfusion when she was ill in December 2015 and again in March 2018, in hospital. Colonoscopy was done May 2016. Because of a drop in hemoglobin she received IV iron therapy in November 2013. She is apparently tolerating her oral iron at present. 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 Most recent hemoglobin A1c was 6.2% in 03/2020, at 5.2% in September 2019, 5.9% in 01/2019, 6.9% in September 2018, 6.4% in June 2018, versus 7.7% in October 2017, 6.8% in August 2017, 6.9% in March 2017. Urine microalbumin was recently stable at 10 4 mcg/mg of creatinine in September 2019, versus 54 mcg/mg of creatinine in January 2019, 159 mcg/mg of creatinine in September 2018. She is on an ARB. She is seen about every 8 weeks by her assembler 1st shift. She sees an eye doctor regularly and had bilateral cataract extractions in June 2017, has nonproliferative retinopathy and some macular edema. I increased her Levemir from 15 up to 18 units daily as of September 2018, and I have reduced her glipizide and metformin therapy to 1 pill daily at suppertime as of January 2019 because of her low hemoglobin A1c; as of September 21 further reduced her basal insulin to 14 units daily. Problem Chronic kidney disease, stage 3 (moderate) N18.3 Active confirmed [id number] Baseline GFR has been declining over the years. Most recent GFRs were 34 in August 2017, 46 in October 2017, 36 in June 2018, 39 in September 2018, 36 in January 2019 with a creatinine of 1.5, and during her hospital stay in June 2019 her creatinine was in the 1.3 to 1.4 range; most recently her creatinine was 1.47 with a GFR 37 in September 2019. Intact PTH level was higher at 157 in August 2017 with a vitamin D level of 109. I stopped her Drisdol and started her on calcitriol 0.5 mcg daily in August 2017. Her repeat PTH level has been controlled, most recently 51 in September 2019. Problem Primary osteoarthritis, right hand M19.041 Activ e confirmed 420047527 Problem B12 deficiency E53.8 Active confirmed 13672 4004 A borderline low vitamin B12 level of 285 was identified when she was hospitalized in late January 2018. She was started on parenteral therapy at discharge but I switched her to oral therapy (this is actually standard of care) in March 2018. Her vitamin B- 12 level was 1800+ in January 2019. Problem Right lumbar radiculopathy M54.16 Active confirmed 243752030 Has been evaluated by orthopedics and had MRI in 10/2015. She I believe has had some physical therapy. She has ongoing discomforts. She was admitted with right leg pain consistent with a lumbar radiculopathy in January-March 2018, had another MRI which demonstrated progression of her spinal stenosis at L4-5 with a disc extrusion at that level. She has pain clinic follow-up periodically. She would benefit from a hospital bed due to poor mobility and need for chronic repositioning which she finds difficult due to her orthopedic complaints and multiple medical problems. Problem Peripheral vascular disease I73.9 Active confirmed 463945601 She had a vascular procedure on her right leg in August 2019 and will be undergoing a left leg procedure in the future. Problem Gastro-esophageal reflux disease without esophagitis K21.9 Active confirmed 858586020 On omeprazole 40 mg twice daily. The dose was increased by condenser setter from once daily apparently in early 2017. Her last EGD was October 2017 and she underwent esophageal dilation despite fairly unremarkable findings. Problem COPD with exacerbation J44.1 Active confirmed 679715580 Problem Esophageal obstruction K22.2 Active confirmed 03845292 She has had symptoms of an esophageal stricture in that she choked easily and sometimes vomited after meals. Upper endoscopy with dilation was done March 18, 2012 with improvement. PPI chronically advised by condenser setter in late 2011 (Dr. Messer). She was on chronic Dexilant therapy but this was switched to omeprazole again for insurance reasons in 2013. Her last EGD was October 2017 was unremark able but she underwent a dilation anyway. Sees Dr. Messer, who increased her omeprazole to twice daily in September 2017. She may have aspirated causing her admission in June 2019. Modified barium swallow during that hospital stay didn't demonstrate evidence for aspiration with no cough reflex. She may need follow-up with her condenser setter. Problem Chronic obstructive pulmonary disease, unspecified J44.9 Active confirmed 42747044 Her symptoms are gen erally controlled at present. Her maths tutor had her on Tudorza and this was stopped due to a dry mouth, although more likely this is from imipramine. No change in medications needed. She sees a maths tutor, most recently in every 2018. In May 2018 her FEV1 was 1.37 L with a ratio of 83%, consistent with restrictive physiology. She is on Advair, Incruse Ellipta and when necessary albuterol. She probably has a component of cor pulmonale. She is on Lasix, currently apparently 40 mg twice daily. Problem Pseudogout M11.20 Active confirmed 954357424 She had right knee arthropathy during her hospital stay in January-March 2018, and calcium pyrophosphate crystals were identified on aspiration. Because of ongoing discomfort, she had her right knee injected with Kenalog by ks 03/07/2018, and she has had 3 Euflexxa injections in Summer 2018. Problem Sacroiliac joint dysfunction M53.3 Active confirme d 991715913 Problem Sacroiliac inflammation M46.1 Active confirmed 474801640 Problem Sacroiliitis, not elsewhere classified M46.1 A ctive confirmed 93657994 ALLERGIES Allergen (clinical drug ingredient) Drug/Non Drug Allergy do cumented on EMR Reaction Allergy Type Onset Date Status Sulfa (for allergy use only) Itch Drug Allergy Active tramadol Tramadol(NDC Code:[address]-78) Itch Drug Allergy Active Penicillin (For Allergies Use Only) Rash Drug Allerg y Active exenatide Byetta 10 MCG Pen(NDC Code:[address]-90) Very sick Drug Allergy Active pioglitazone Actos(NDC Code:[address]-72) CHF Drug Allergy Active ENCOUNTERS from 1945 to 2020-09-02 Encounter Location Date Provider Diagnosis [address] [place] [address] Sep, Morteza John Gout, unspecified M10.9 and Hypercholest erolemia E78.00 IMMUNIZATIONS Vaccine Route Administration Date Status Influenza (High Dose 65 & up) IM Intramuscular May 06, 2017 A dministered Influenza (18 yrs & older) Flublok IM Intramuscular Jun 27, 2018 Administered Influenza (18 yrs & older) Flublok IM Intramuscular May 31, 2019 Administered Influenza (18 yrs & older) Flublok IM Intramuscular Jun 06, 2020 Administered Influenza (High Dose 65 & up) Unknown Apr 23, 2014 Ad ministered Influenza (High Dose 65 & up) IM Intramuscular May 10, 2015 A dministered Influenza (High Dose 65 & up) IM Intramuscular May 12, 2016 A dministered TD Adult 0.5mL (Tetanus) Unknown Aug 02, 2002 Adminis tered Influenza (High Dose 65 & up) Unknown Jun 08, 2013 Ad ministered Influenza (High Dose 65 & up) Unknown Apr 21, 2012 Ad ministered Influenza (High Dose 65 & up) Unknown Jun 22, 2011 Ad ministered Influenza (High Dose 65 & up) Unknown Apr 21, 2010 Ad ministered Zoster 0.65mL (Zostavax) Unknown Jun 02, 2012 Adminis tered Pneumococcal Adult 0.5mL (Pneumovax 23) Unknown Mar 10, 2005 Administered TDAP Unknown Jul 20, 2013 Administered Pneumococcal 0.5mL (Prevnar 13) IM Intramuscular May 10, 2015 Administered SOCIAL HISTORY Tobacco Use: Social History Observation Description Date Details (start date - stop date) Former Smoker Sex Assigned At : Social History Observation Description Sex Assigned At Unknown Education: Question Answer Notes Level of Education: Finished High School Audit Question Answer Notes Total Score: 0 Interpretation: Alcohol Education Language: Question Answer Notes Languages spoken: Wolof Jehovah'S Witness: Question Answer Notes Jehovah'S Witness No shinto beliefs that would impact health care. Sexual Hx: Question Answer Notes Had sex in the last 12 months (vaginal, oral, or anal)? No Have you ever had an STD? No Drug and Alcohol Question Answer Notes Total Score: 0 Interpretation: No problems reported Alcohol Screening: Question Answer Notes Did you have a drink containing alcohol in the past year? No Points 0 Interpretation Negative BMI Care Goal Follow-Up Question Answer Notes Above Normal BMI Follow-Up Dietary management educatio n, guidance, and counseling Tobacco Use: Question Answer Notes Are you a: former smoker How long has it been since you last smoked? > 10 years REASON FOR REFERRAL No Information VITAL SIGNS No information MEDICATIONS Medication SIG (Take, Route, Frequency, Duration) Notes Start Da te End Date Status Lasix 40 MG 1 tab Orally twice daily for 90 day(s) Active Advair Diskus 500-50 MCG/DOSE 1 puff Inhalation Twice a day for 90 Active Levothyroxine Sodium 150 MCG 1 tablet on an empty stom ach in the morning Orally Once a day for 90 days Active TobraDex 0.3-0.1 % 1 drop into left eye Ophthalmic tid Oct, Not-Taking Clotrimazole 10 MG 1 willy Mouth/Throat Five t imes a day as needed for 90 day(s) Sep, Active Blood Glucose Test Strip _ One Touch Ultra 2 In Vitro, DX: E11.21 Four times a day for 90 day(s) May, Active Ventolin HFA 108 (90 Base) MCG/ACT 2 puffs Inhalation Every 4 hours as needed for SOB, Cough, Wheeze for 90 day(s) Aug, Active Pen [place] 3/16" 31G X 5 MM BD ultra fine subcutaneou sly twice a day DX: E11.9 for 90 day(s) Active Singulair 10 MG 1 tablet in the evening Orally Once a day for 90 Active Calcitriol 0.5 MCG 1 capsule Orally Once a day for 90 days Aug, Active Senna 8.6 MG 2 tablets Orally twice daily for 90 day(s) Jan, Active Allopurinol 300 MG 1 tablet Orally Once a day for 90 days Active GlipiZIDE-Metformin HCl 5-500 MG 1 tablet Orally Daily at [facility] for 90 day(s) Active Colace 100 MG 1 capsule Orally Once a day for 90 day(s) Active PredniSONE 10 MG 3 tablets Orally Once a day for 5 days Jun, Active Lipitor 40 MG 1 tablet Orally Once a day for 90 days 2014 Active Victoza 18 MG/3ML 1.8mg Subcutaneous Once a day for 90 days November, Active Folic Acid 1 MG 1 tablet Orally Once a day for 90 day(s) Active Zofran ODT 4 MG 1 tablet on the tongue and a llow to dissolve Orally before meals and at bedtime (four times a day) for 14 days Dec, Active Losartan Potassium 50 MG 1 tablet Orally Once a day for 90 day(s ) Jan, Active BusPIRone HCl 15 MG 1 tablet Orally Twice a day Active November Have - hand rail by toilet _ Daily. Dx: M19.90 for 90 day(s) Sep, Active Hospital bed as directed With [facility] m54.16 for 2000 days Sep, Active Lancets _ as directed DX: E11.21 Four times a day for 90 day(s) Mar, Active Levemir FlexTouch 100 UNIT/ML 14 units Subcutaneous daily--take in th e AM Active Omeprazole 40 MG 1 capsule Orally Twice a day for 90 days Active Nystatin 930828 UNIT/GM 1 application to area under breast Externally Twice a day for 90 day(s) Active Ferrous Gluconate 324 (38 Fe) MG 1 tablet Orally Every other day for 90 days Active Depend Pant Extra Large 1 ea Extra Large. Weight-220.6 pounds, Height 62 inches DX: R32 Daily for 90 days Jan, Active Gabapentin 300 MG 1 capsule Orally three times daily Active Flonase 50 MCG/ACT 2 sprays in each nostril Nasally Once a day f or 30 day(s) Jun, Active Doxycycline Hyclate 100 MG 1 capsule Orally Twice a day for 7 da y(s) Jun, Active Albuterol Sulfate (2.5 MG/3ML) 0.083% 3 ml as needed I nhalation every 4 hours as needed for SOB/Cough/Wheeze Aug, Acti ve Xanax 0.25 MG 1 tablet Orally DAILY Active Incruse Ellipta 62.5 MCG/INH 1 puff Inhalation Once a day Jun, Active Cyanocobalamin 1000 MCG 1 tablet Orally Once a day for 100 day(s ) Mar, Active Zoloft 100 MG 1 and 1/2 tablet Orally Once a day Active PROCEDURES No Information RESULTS No Results REASON FOR VISIT refill-allopurinol, lipitor, folic acid MEDICAL (GENERAL) HISTORY Type Description Date Medical History Controlled type 2 diabetes m ellitus with microalbuminuric diabetic nephropathy Medical History Chronic kidney disease, stage 3 (moderat e) Medical History Hypothyroidism, unspecified Medical History Hypercholesterolemia Medical History Anemia in other chronic diseases classif ied elsewhere Medical History Chronic obstructive pulmonary disease, u nspecified Medical History Other diabetic neurological complication associated with type 2 diabetes mellitus Medical History Localized edema Medical History Gastro-esophageal reflux disease without esophagitis Medical History Sleep apnea, unspecified Medical History Dysthymic disorder Medical History Gout, unspecified Medical History Vitamin D deficiency, unspecified Medical History Esophageal obstruction Medical History Gastroparesis Medical History Pseudogout Medical History Primary osteoarthritis, right hand Medical History B12 deficiency Medical History Primary osteoarthritis of left hand Medical History Right lumbar radiculopathy Medical History Infection right hand from cat bite Surgical History bilateral hip operations on six different occasions, initially starting at age 10 when she had slipped capital femoral epiphyses age 10 Surgical History tubal ligation in the 1969's 06/22/1972 Surgical History Left knee replaced 2000? Surgical History C-spine discectomy and donor graft at C5 2001 Surgical History Hysterectomy with bladder repair for vag inal bleeding 2003 Surgical History Hernia repair, repair of three different abdominal hernias Surgical History Right carpal tunnel surgery and right ulnar nerve transposition 2004 Surgical History Colonoscopy 2008 Surgical History Left nipple breast biopsy 2008 Surgical History Colonoscopy 2009 Surgical History Colonoscopy 2012 Surgical History Left shoulder replacement 10/27/2013 Surgical History Laparoscopic cholecystectomy 07/21/2016 Surgical History Bilateral cataract surgery-Dr. Gold 06/09 and 06/16/2017 Surgical History Upper endoscopy with esophageal dilation 10/2017 Surgical History gallbladder removed 2017 Hospitalization History Pancreatitis 12/12/2015 Hospitalization History [facility] ER- Cholecystitis-Chronic 2015 Hospitalization History [facility] in [place]-URI Hospitalization History [facility] hospital-right lumbar radiculopa thy 02/26-03/02/2018 Hospitalization History [facility] Pneumonia, COPD 06/27-2018 Hospitalization History pneumonia, CHF 2019 Hospitalization History RIGHT LEG ANGIO Goals Section No Information Health Concerns No Information MEDICAL EQUIPMENT No Information MENTAL STATUS No Information FUNCTIONAL STATUS No Information ASSESSMENTS Encounter Date Diagnosis Assessment Notes Treatment Notes Treatm ent Clinical Notes Sep, Gout, unspecified (ICD-10 - M10.9) Sep, Hypercholesterolemia (ICD-10 - E78.00) PLAN OF TREATMENT Medication Medication Name Sig Start Date Stop Date Calcitriol 0.5 MCG 1 capsule Orally Once a day for 90 days 2017 Doxycycline Hyclate 100 MG 1 capsule Orally Twice a day for 7 day(s) Jun, Nystatin 008402 UNIT/GM 1 application to area under breast Externally Twice a day for 90 day(s) PredniSONE 10 MG 3 tablets Orally Once a day for 5 days Jun, Allopurinol 300 MG 1 tablet Orally Once a day for 90 days Lipitor 40 MG 1 tablet Orally Once a day for 90 days Oct, 015 Clotrimazole 10 MG 1 willy Mouth/Throat Five t imes a day as needed for 90 day(s) Sep, Blood Glucose Test Strip _ One Touch Ultra 2 In Vitro, DX: E11.21 Four times a day for 90 day(s) May, Folic Acid 1 MG 1 tablet Orally Once a day for 90 day(s) Next Appt Details Provider Name:Morteza Lopez, 2020-09-25 03 :30:00 PM, [address] [place], [address], Insurance Providers Payer Name Payer Address Payer Phone Insured Name Patient Relati onship to Insured Coverage Start Date Coverage End Date MEDICAID [employer] [address] [facility] [id number] YESICA JACKSON [facility] [address] [address] [facility] [id number] YESICA JACKSON self
--- OUTSIDE RECORDS SUMMARY | 2020-09-15 14:18 | CCD | Continuity of Care Document ---
Author Author Riya [facility]EL [facility]NAGER Organization Unknown Address [address] [place] [address] [place] [address] Phone [phone] Care Team Providers Care Radiochemical Technician Name Role Phone Morteza Lopez MD AUTM [phone] Problems Active Problems Provider Date Type 2 diabetes mellitus Onset: 02/20/20 15 Social History Type Date Description Comments Sex Unknown Tobacco Use Start: Unknown End: Unknown Quit 2 pp d x 25 years quit age 39 Smoking Status Reviewed: 03/16/19 Quit 2 ppd x 25 ye ars quit age 39 ETOH Use Denies alcohol use Allergies, Adverse Reactions, Alerts Active Allergies Reaction Severity Comments Date Penicillin 02/19/2015 Byetta 02/19/2015 Sulfa 02/19/2015 Actos 02/19/2015 Tramadol 02/19/2015 Medications Active Medications SIG Qnty Indications Ordering Provide r Date Doxycycline Monohydrate 100mg Tabl ets 1 tab by mouth twice a day x10 days 20tabs J44.1 Darrick silva JR., M.D. 09/05/2020 Prednisone 20mg Tablets 1 tab twice a day for 5 days 10tabs J44.1 Darrick Bloom JR., M.D. 10/2020 Buspirone HCL 10mg Tablets Unknown Losartan Potassium 50mg Tablets Unknown Incruse Ellipta 62.5mcg/Inh Aerosol Unknown Vitamin B 12 Unknown Ciclopirox Olamine 0.77% Cream Unknown Singulair 10mg Tablets 1hs - take one tablet by mouth at bedtime Unknown Senokot S 8.6-50mg Tablets Unknown Omeprazole 40mg Capsules DR 1 by mouth every day Unknown Gabapentin 300mg Capsules Unknown Glipizide-Metformin HCL 5-500mg Tablets Unknown Victoza 18mg/3ML Solution Pen-Inject Unknown Albuterol Sulfate Nebulizer Unknown Allopurinol 300mg Tablets 1 by mouth every day Unknown Tudorza Pressair 400mcg/Act Aerosol Unknown Diovan Tablets Unknown Lasix 80mg Tablets Unknown Imipramine HCL 25mg Tablets Unknown Zoloft 100mg Tablets 1 1\\2 by mouth every day Unknown Synthroid 175mcg Tablets take one (1) tab daily Unknown Levemir 100Unit/ML Solution Unknown Atorvastatin Calcium 40mg Tablets Unknown Advair Diskus 500-50mcg/Dose Aerosol Unknown Immunizations CPT Code Status Date Vaccine Reaction Lot # [id number] Given 03/16/2019 Tetanus (Td) Vaccine 7 Yrs> Pt tolerated well no reaction. [id number] Vital Signs Date Vital Result Comment 09/05/2020 3:23pm BP Systolic 130 mmHg BP Diastolic 78 mmHg Heart Rate 66 /min Respiratory Rate 16 /min O2 % BldC Oximetry 98 % Body Temperature 98.5 F Weight 205.00 lb Height 61 inches 5'1" BMI (Body Mass Index) 38.7 kg/m2 Pain Level 2 03/16/2019 6:56pm BP Systolic 122 mmHg BP Diastolic 70 mmHg Heart Rate 88 /min Respiratory Rate 17 /min O2 % BldC Oximetry 93 % Body Temperature 98.3 F Weight 230.00 lb Height 61 inches 5'1" BMI (Body Mass Index) 43.5 kg/m2 Pain Level 4 Results Description No Information Available Procedures Description No Information Available Medical Devices Description No Information Available Encounters Type Date Location Provider Dx Diagnosis Office Visit 09/05/2020 3:15p [facility] Noelle Kendall J44.1 Chronic obstructive pulmonary disease w (acute) exacerbation Z20.828 Contact w and exposure to ot h viral communicable diseases Assessments Date Code Description Provider 09/05/2020 J44.1 Chronic obstructive pulmonary disease with (acute) exacerbation Laurie Pepe NP 09/05/2020 Z20.828 Contact with and (castaneda spected) exposure to other viral communicable diseases Laurie Pepe NP Plan of Treatment No Information Available Functional Status Description No Information Available Mental Status Description No Information Available Referrals Description No Information Available
--- OUTSIDE RECORDS SUMMARY | 2020-09-15 14:19 | CCD ---
Author Author [facility] [employer] [facility] Organization [facility] ems Address Unknown Phone Unavailable Care Team Providers Care Vice Chancellor Name Role Phone Jessica Nguyen Unavailable PROBLEMS Type Condition ICD9-CM Code [id number] Code Onset Dates Condition S tatus SNOMED Code Notes Problem Chronic heart failure with preserved ejection fraction I50.32 Active [id number] There was the suspicion that she had decompensated CHF during her [...] in September 2019. Problem Hypercholesterolemia E78.00 Active 61309162 He r lipids are borderline controlled as of September 2019 on Lipitor 40 mg daily. Problem Gastroparesis K31.84 Active 329633701 Gastropa resis was identified on upper endoscopy in April 2012. There is little therapy to offer because Reglan which causes parkinsonism. She declines this. Her manpower development specialist is assisting with this. He has recommended high-dose MiraLax therapy to her, and advises chronic PPI therapy (Dr. Messer). Problem Gout, unspecified M10.9 Active 25958037 Uric acid controlled on medication (last uric acid level was 5.1 in 01/2019). Takes allopurinol since about April 2007. Problem Primary osteoarthritis of left hand M19.042 Acti ve 19898076 Try Voltaren gel. 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 She sees a environmental research scientist regularly. Problem Dysthymic disorder F34.1 Active 35695145 On B uspar instead of imipramine), Zoloft and Xanax (dose reduced in August 2019). Sees a mental health provider monthly and her Zoloft was increased to 100 mg daily in October 2011. TSH was normal in 01/2019. Problem Sleep apnea, unspecified G47.30 Active 8858266 6 Had sleep study in Summer 2012. She has been prescribed BiPAP but does not tolerate it. Her medical assembler is aware. Problem Hypothyroidism, unspecified E03.9 Active 9563 0008 Her current thyroid replacement dose is 175 mcg daily, skipping 1 dose a week. Her most recent TSH was 1.38 in 01/2019. Problem Vitamin D deficiency, unspecified E55.9 Active 48627766 Discovered 12/07. Last Vitamin D level was greater than 100 in August 2017. I stopped her weekly Drisdol and placed her on calcitriol because of an elevated PTH then. A follow-up vitamin D level in September 2018 was 37. 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 Most recent hemoglobin A1c was too low at 5.2% in September 2019, 5.9% in [...] seen about every 8 weeks by her environmental research scientist. She sees an eye doctor regularly and [...] kidney disease, stage 3 (moderate) N18.3 Active 040458557 Baseline GFR has been declining over the [...] Primary osteoarthritis, right hand M19.041 Activ e 352634243 Problem B12 deficiency E53.8 Active 475329768 A yo leggett low vitamin B12 level of 285 was identified when she was hospitalized in late January 2018. She was started on parenteral therapy at discharge but I switched her to oral therapy (this is actually standard of care) in March 2018. Her vitamin B-12 level was 1800+ in January 2019. Problem Right lumbar radiculopathy M54.16 Active 78651 6099 Has been evaluated by orthopedics and had [...] problems. Problem Peripheral vascular disease I73.9 Active 1919 50869 She had a vascular procedure on her right leg in August 2019 and will be undergoing a left leg procedure in the future. Problem Gastro-esophageal reflux disease without esophagitis K21.9 Active 569230953 On omeprazole 40 mg twice daily. The dos e was increased by manpower development specialist from once daily apparently in early 2017. Her last EGD was October 2017 and she underwent esophageal dilation despite fairly unremarkable findings. Problem COPD with exacerbation J44.1 Active 939351000 Problem Esophageal obstruction K22.2 Active 51330871 She has had symptoms of an esophageal stricture in that she choked easily and sometimes vomited after meals. Upper endoscopy with dilation was done March 18, 2012 with improvement. PPI chronically advised by manpower development specialist in late 2011 (Dr. Messer). She was on chronic Dexilant therapy but this was switched to omeprazole again for insurance reasons in 2013. Her last EGD was October 2017 was unremarkable but she underwent a dilation anyway. Sees Dr. Messer, who increased her omeprazole to twice daily in September 2017. She may have aspirated causing her admission in June 2019. Modified barium swallow during that hospital stay didn't demonstrate evidence for aspiration with no cough reflex. She may need follow-up with her manpower development specialist. Problem Chronic obstructive pulmonary disease, unspecified J44.9 Active 12030149 Her symptoms are generally controlled at present. Her medical assembler had her on Tudorza and this was stopped due to a dry mouth, although more likely this is from imipramine. No change in medications needed. She sees a medical assembler, most recently in every 2018. In May 2018 her FEV1 was 1.37 L with a ratio of 83%, consistent with restrictive physiology. She is on Advair, Incruse Ellipta and when necessary albuterol. She probably has a component of cor pulmonale. She is on Lasix, currently apparently 40 mg twice daily. Problem Pseudogout M11.20 Active 335203778 She had rig ht knee arthropathy during her hospital stay in January-March 2018, and calcium pyrophosphate crystals were identified on aspiration. Because of ongoing discomfort, she had her right knee injected with Kenalog by in 03/07/2018, and she has had 3 Euflexxa injections in Summer 2018. Problem Sacroiliac joint dysfunction M53.3 Active 202 033899 Problem Sacroiliac inflammation M46.1 Active 54410558 7 Problem Sacroiliitis, not elsewhere classified M46.1 A ctive 65375137 ALLERGIES Allergen (clinical drug ingredient) Drug/Non Drug Allergy do cumented on EMR Reaction Allergy Type Onset Date Status Sulfa (for allergy use only) Itch Drug Allergy Active tramadol Tramadol(NDC Code:[address]-77) Itch Drug Allergy Active Penicillin (For Allergies Use Only) Rash Drug Allerg y Active exenatide Byetta 10 MCG Pen(NDC Code:[address]-75) Very sick Drug Allergy Active pioglitazone Actos(NDC Code:[address]-95) CHF Drug Allergy Active ENCOUNTERS from 1945 to 2020-06-18 Encounter Location Date Provider Diagnosis [address] [address] Jun, Jessica Nguyen IMMUNIZATIONS Vaccine Route Administration Date Status Influenza [...] Education Language: Question Answer Notes Languages spoken: Malagasy Quaker: Question Answer Notes Quaker No amish beliefs that would impact health care. Sexual [...] Notes Start Da te End Date Status Flonase 50 MCG/ACT 2 sprays in each nostril Nasally Once a day f or 30 day(s) Jun, Active PredniSONE 10 MG 3 tablets Orally Once a day for 5 days Jun, Active Depend Pant Extra Large 1 ea Extra Large. Weight-220.6 pounds, Height 62 inches DX: R32 Daily for 90 days Jan, Active Hospital bed as directed With mattress m54.16 for 2000 days Sep, Active Nystatin 761799 UNIT/GM 1 application to area under breast Externally Twice a day for 90 Active GlipiZIDE-Metformin HCl 5-500 MG 1 tablet Orally Daily at castaneda pper for 90 day(s) Active Calcitriol 0.5 MCG 1 capsule Orally Once a day for 90 days Aug, Active Ferrous Gluconate 324 (38 Fe) MG 1 tablet Orally Every other day for 90 days Active Singulair 10 MG 1 tablet in the evening Orally Once a day for 90 Active Folic Acid 1 MG 1 tablet Orally Once a day for 90 day(s) Active Lancets _ as directed DX: E11.21 Four times a day for 90 day(s) Mar, Active Levothyroxine Sodium 150 MCG 1 tablet on an empty stom ach in the morning Orally Once a day for 90 days Active Advair Diskus 500-50 MCG/DOSE 1 puff Inhalation Twice a day for 90 Active Colace 100 MG 1 capsule Orally Once a day for 90 day(s) Active TobraDex 0.3-0.1 % 1 drop into left eye Ophthalmic tid Oct, Not-Taking Blood Glucose Test Strip _ One Touch Ultra 2 In Vitro, DX: E11.21 Four times a day for 90 day(s) May, Active Victoza 18 MG/3ML 1.8mg Subcutaneous Once a day for 90 days November, Active Senna 8.6 MG 2 tablets Orally twice daily for 90 day(s) Jan, Active Zofran ODT 4 MG 1 tablet on the tongue and a llow to dissolve Orally before meals and at bedtime (four times a day) for 14 days Dec, Active BusPIRone HCl 15 MG 1 tablet Orally Twice a day Active Doxycycline Hyclate 100 MG 1 capsule Orally Twice a day for 7 da y(s) Jun, Active November Have - hand rail by toilet _ Daily. Dx: M19.90 for 90 day(s) Sep, Active Omeprazole 40 MG 1 capsule Orally Twice a day for 90 days Active Allopurinol 300 MG 1 tablet Orally Once a day for 90 days Active Gabapentin 300 MG 1 capsule Orally three times daily Active Losartan Potassium 50 MG 1 tablet Orally Once a day for 90 day(s ) Jan, Active Lasix 40 MG 1 tab Orally twice daily for 90 day(s) Active Ventolin HFA 108 (90 Base) MCG/ACT 2 puffs Inhalation Every 4 hours as needed for SOB, Cough, Wheeze for 90 day(s) Aug, Active Pen Hamer /" 31G X 5 MM BD ultra fine subcutaneou sly twice a day DX: E11.9 for 90 day(s) Active Clotrimazole 10 MG 1 wlily Mouth/Throat Five times a day as nee ded Sep, Active Lipitor 40 MG 1 tablet Orally Once a day for 90 days 20 Ap , 2014 Active Levemir FlexTouch 100 UNIT/ML 14 units Subcutaneous daily--take in th e AM Active Albuterol Sulfate (2.5 MG/3ML) 0.083% 3 [...] Information RESULTS No Results REASON FOR VISIT cough MEDICAL (GENERAL) HISTORY Type Description Date Medical [...] 2017 Hospitalization History Pancreatitis 12/12/2015 Hospitalization History [facility] ER- Cholecystitis-Chronic 2015 Hospitalization History [facility] [place] Hospitalization History [facility] hospital-right lumbar radiculopa thy 02/26-03/02/2018 Hospitalization History [facility] Pneumonia, COPD 06/27-2018 Hospitalization History pneumonia, CHF 2019 Hospitalization History [facility] Goals Section No Information Health Concerns No Information MEDICAL EQUIPMENT No Information MENTAL STATUS No Information FUNCTIONAL STATUS No Information ASSESSMENTS No Information PLAN OF TREATMENT Medication Medication Name Sig Start Date Stop Date PredniSONE 10 MG 3 tablets Orally Once a day for 5 days Jun, Doxycycline Hyclate 100 MG 1 capsule Orally Twice a day for 7 day(s) Jun, Next Appt Details Provider Name:Bronwyn Segundo, 2020-07-08 01 :45:00 PM, [address] [place], [place], [address], Insurance Providers Payer Name Payer Address Payer Phone Insured Name Patient Relati onship to Insured Coverage Start Date Coverage End Date MEDICAID [employer] [address] [facility] [id number] YESICA JACKSON [employer] [address] [address] [facility] [id number] YESICA JACKSON self
--- OUTSIDE RECORDS SUMMARY | 2020-09-15 14:19 | CCD | Continuity of Care Document ---
Author Author Riya FRANCO Organization Unknown Address [address] [place] [address] Phone [phone] Problems Active Problems Provider Date Obesity Jhoan GEORGE Silveira Onset: 01/21/2012 Social History Type Date Description Comments Sex Unknown Tobacco Use Start: Unknown End: Unknown Quit Tobacco Use Start: Unknown Non-Smoker, Non-Drinker, Non-Charlie g User Smoking Status Reviewed: 07/01/20 Non-Smoker, Non-Drinker, Non- Drug User Tobacco Use Start: Unknown End: Unknown Patient is a former smoker quit 1980s Exercise Type/Frequency Does not exercise Allergies, Adverse Reactions, Alerts Active Allergies Reaction Severity Comments Date PCN 09/29/2006 Adhesives 09/29/2006 Sulfa 02/13/2010 actos 02/13/2010 Byetta 04/27/2016 Tramadol 04/27/2016 Medications Active Medications SIG Qnty Indications Ordering Provide r Date Allopurinol 300mg Tablets Sonam Franco MD 04/29/2011 Gabapentin 300mg Capsules tid Sonam Franco MD 04/29/2011 Nystatin 100,000Units/ML Suspension Sonam Franco MD 04/29/2011 Vitamin D 50,000Units Capsules Sonam Franco MD 04/29/2011 Ciclopirox 0.77% Cream Sonam Franco MD 04/29/2011 Victoza 18mg Inj Sonam Franco MD 04/29/2011 Albuterol Inhalation 90mcg/Dose Aerosol Sonam Franco MD 09/29/2006 Singulair 10mg Tablets Sonam Franco MD 09/29/2006 Diovan 80mg Tablets Sonam Franco MD 09/29/2006 Zoloft 50mg Tablets Sonam Franco MD 09/29/2006 Glucovance 5mg;500 mg Tablets 2 PO bid Sonam Franco MD 09/29/2006 Senokot 8.8mg Tablets Sonam Franco MD 09/29/2006 Advair Diskus 500mcg;50mcg Inhaler bid Sonam Franco MD 09/29/2006 Synthroid 175mcg Tablets Unknown Atorvastatin Calcium 40mg Tablets Unknown Levemir 100Unit/ML Solution Unknown Docqlace 100mg Capsules Unknown Omeprazole 40mg Capsules DR twice a day Unknown Lasix 40mg Tablets Unknown Incruse Ellipta 62.5mcg/Inh Aerosol Unknown Buspirone HCL 15mg Tablets bi d Unknown Immunizations Description No Information Available Vital Signs Date Vital Result Comment 07/01/2020 1:40pm BP Systolic 148 mmHg BP Diastolic 56 mmHg Height 58.5 inches 4'10.50" Weight 205.00 lb BMI (Body Mass Index) 42.1 kg/m2 BSA (Body Surface Area) 1.85 m2 06/21/2019 2:23pm BP Systolic 124 mmHg BP Diastolic 78 mmHg Results Description No Information Available Procedures Date Code Description Status 01/29/2020 [id number] Mammogram Completed 06/17/2015 [id number] Mammogram Completed 01/27/2006 [id number] Bone Mineral Density Test Comple PressBaby Description No Information Available Encounters Type Date Location Provider Dx Diagnosis Office Visit 07/01/2020 2:00p [facility] account retention representative Sonam Franco MD Z0 1.411 Encntr for crepe machine operator exam (general) (routine) w abnormal findings Z12.72 Encounter for screening for malignant neoplasm of vagina Z12.39 Encounter for oth screening for malignant neoplasm of breast Assessments Date Code Description Provider 07/01/2020 Z01.411 Encounter for gyneco logical examination (general) (routine) with abnormal findings Sonam Franco MD 07/01/2020 Z12.72 Encounter for screening for yvette gnant neoplasm of vagina Sonam Franco MD 07/01/2020 Z12.39 Encounter for other screening for malignant neoplasm of breast Sonam Franco MD Plan of Treatment Future Appointment(s):* 07/01/2022 2:00 pm - Sonam Franco MD at [facility] account retention representative 07/01/2020 - Sonam Franco MD* Z01.411 Encounter for gynecological examination (general) (routine) with abnormal findings * Z12.72 Encounter for screening for malignant neoplasm of vagina * Z12.39 Encounter for other screening for malignant neoplasm of breast Functional Status Description No Information Available Mental Status Description No Information Available Referrals Description No Information Available
--- OUTSIDE RECORDS SUMMARY | 2020-09-15 14:19 | CCD ---
Author Author [facility] [employer] Organization [facility] Address Unknown Phone Unavailable Care Team Providers Care Room Server Name Role Phone Jessica Nguyen Unavailable PROBLEMS Type Condition ICD9-CM Code [id number] Code Onset Dates Condition S tatus SNOMED Code Notes Problem Chronic heart failure with preserved ejection fraction I50.32 Active 777219271 There was the suspicion that she had [...] in September 2019. Problem Hypercholesterolemia E78.00 Active 59943478 He r lipids are borderline controlled as of September 2019 on Lipitor 40 mg daily. Problem Gastroparesis K31.84 Active 299495912 Gastropa resis was identified on upper endoscopy in April 2012. There is little therapy to offer because Reglan which causes parkinsonism. She declines this. Her councillor [employer] is assisting with this. He has recommended high-dose MiraLax therapy to her, and advises chronic PPI therapy (Dr. Messer). Problem Gout, unspecified M10.9 Active 06182235 Uric acid controlled on medication (last uric acid level was 5.1 in 01/2019). Takes allopurinol since about April 2007. Problem Primary osteoarthritis of left hand M19.042 Acti ve 97870213 Try Voltaren gel. 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 She sees a metal sorter regularly. Problem Dysthymic disorder F34.1 Active 00254148 On B uspar instead of imipramine), Zoloft and Xanax (dose reduced in August 2019). Sees a mental health provider monthly and her Zoloft was increased to 100 mg daily in October 2011. TSH was normal in 01/2019. Problem Sleep apnea, unspecified G47.30 Active 7015340 6 Had sleep study in Summer 2012. She has been prescribed BiPAP but does not tolerate it. Her science education professor is aware. Problem Hypothyroidism, unspecified E03.9 Active 7513 0008 Her current thyroid replacement dose is 175 mcg daily, skipping 1 dose a week. Her most recent TSH was 1.38 in 01/2019. Problem Vitamin D deficiency, unspecified E55.9 Active 53922930 Discovered 12/07. Last Vitamin D level was greater than 100 in August 2017. I stopped her weekly Drisdol and placed her on calcitriol because of an elevated PTH then. A follow-up vitamin D level in September 2018 was 37. 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 She sees an eye doctor regularly and [...] kidney disease, stage 3 (moderate) N18.3 Active 164700825 Baseline GFR has been declining over the [...] Primary osteoarthritis, right hand M19.041 Activ e 315587114 Problem B12 deficiency E53.8 Active 470039489 A yo leggett low vitamin B12 level of 285 was identified when she was hospitalized in late January 2018. She was started on parenteral therapy at discharge but I switched her to oral therapy (this is actually standard of care) in March 2018. Her vitamin B-12 level was 1800+ in January 2019. Problem Right lumbar radiculopathy M54.16 Active 80265 6013 Has been evaluated by orthopedics and had [...] problems. Problem Peripheral vascular disease I73.9 Active 3055 48791 She had a vascular procedure on her right leg in August 2019 and will be undergoing a left leg procedure in the future. Problem Gastro-esophageal reflux disease without esophagitis K21.9 Active 180637910 On omeprazole 40 mg twice daily. The dos e was increased by councillor [employer] from once daily apparently in early 2017. Her last EGD was October 2017 and she underwent esophageal dilation despite fairly unremarkable findings. Problem COPD with exacerbation J44.1 Active 050380568 Problem Esophageal obstruction K22.2 Active 83804739 She has had symptoms of an esophageal stricture in that she choked easily and sometimes vomited after meals. Upper endoscopy with dilation was done March 18, 2012 with improvement. PPI chronically advised by councillor [employer] in late 2011 (Dr. Messer). She was [...] reflex. She may need follow-up with her councillor [employer]. Problem Chronic obstructive pulmonary disease, unspecified J44.9 Active 10771306 Her symptoms are generally controlled at present. Her science education professor had her on Tudorza and this was stopped due to a dry mouth, although more likely this is from imipramine. No change in medications needed. She sees a science education professor, most recently in every 2018. In May 2018 her FEV1 was 1.37 L with a ratio of 83%, consistent with restrictive physiology. She is on Advair, Incruse Ellipta and when necessary albuterol. She probably has a component of cor pulmonale. She is on Lasix, currently apparently 40 mg twice daily. Problem Pseudogout M11.20 Active 337194846 She had rig ht knee arthropathy during her hospital stay in January-March 2018, and calcium pyrophosphate crystals were identified on aspiration. Because of ongoing discomfort, she had her right knee injected with Kenalog by mt 03/07/2018, and she has had 3 Euflexxa injections in Summer 2018. Problem Sacroiliac joint dysfunction M53.3 Active 202 274554 Problem Sacroiliac inflammation M46.1 Active 23351095 7 Problem Sacroiliitis, not elsewhere classified M46.1 A ctive 81588352 ALLERGIES Allergen (clinical drug ingredient) Drug/Non Drug Allergy do cumented on EMR Reaction Allergy Type Onset Date Status Sulfa (for allergy use only) Itch Drug Allergy Active tramadol Tramadol(NDC Code:[address]-97) Itch Drug Allergy Active Penicillin (For Allergies Use Only) Rash Drug Allerg y Active exenatide Byetta 10 MCG Pen(NDC Code:[address]-56) Very sick Drug Allergy Active pioglitazone Actos(NDC Code:[address]-21) CHF Drug Allergy Active ENCOUNTERS from 1945 to 2020-06-21 Encounter Location Date Provider Diagnosis [address] [address] Jun, Jessica Nguyen COPD with exacerbation J44.1 IMMUNIZATIONS Vaccine Route Administration Date Status Influenza [...] Education Language: Question Answer Notes Languages spoken: Macedonian Caodaism: Question Answer Notes Caodaism No islam beliefs that would impact health care. Sexual [...] REASON FOR REFERRAL No Information VITAL SIGNS Weight 209 lbs Jun, Height 62 in Jun, BMI 38.22 kg/m2 Jun, Heart Rate 94 /min Jun, Respiratory Rate 18 /min Jun, Temperature 97 degrees Fahrenheit Jun, Oximetry 98 Jun, Blood pressure systolic 128 mm Hg Jun, Blood pressure diastolic 58 mm Hg Jun, MEDICATIONS Medication SIG (Take, Route, Frequency, Duration) [...] Jan, Active Hospital bed as directed With ashish m54.16 for 2000 days Sep, Active Nystatin 560863 UNIT/GM 1 application to area under breast Externally Twice a day for 90 Active GlipiZIDE-Metformin HCl 5-500 MG 1 tablet Orally Daily at [facility] for 90 day(s) Active Calcitriol 0.5 MCG [...] Wheeze for 90 day(s) Aug, Active Pen Ballantine 316" 31G X 5 MM BD ultra fine subcutaneou sly twice a day DX: E11.9 for 90 day(s) Active Clotrimazole 10 MG 1 willy Mouth/Throat Five times a day as nee ded Sep, Active Lipitor 40 MG 1 tablet Orally Once a day for 90 days 2014 Active Levemir FlexTouch 100 UNIT/ML 14 [...] 11 Surgical History tubal ligation in the 1970's 06/22/1972 Surgical History Left knee replaced 2000? [...] 2017 Hospitalization History Pancreatitis 12/12/2015 Hospitalization History [facility] ER- Cholecystitis-Chronic 2015 Hospitalization History [facility] in [place]-URI Hospitalization History [facility] hospital-right lumbar radiculopa thy 02/26-03/02/2018 Hospitalization History [facility] Pneumonia, COPD 06/27-2018 Hospitalization History pneumonia, CHF 2019 Hospitalization History RIGHT LEG ANGIO Goals Section No Information Health Concerns No Information MEDICAL EQUIPMENT No Information MENTAL STATUS No Information FUNCTIONAL STATUS No Information ASSESSMENTS Encounter Date Diagnosis Assessment Notes Treatment Notes Treatm ent Clinical Notes Jun, COPD with exacerbation (ICD-10 - J44.1) Will start with the Doxy. Prednisone sent in the event her sxs are not significantly improved in the next few days. Pt agrees with plan and will closely monitor her blood glucose levels while on the Prednisone. Rest, fluids. Pt to monitor for increased work of breathing, fever or CP. F/U in 5-7 days if sxs not improved. PLAN OF TREATMENT Medication Medication Name Sig Start Date Stop Date PredniSONE 10 MG 3 tablets Orally Once a day for 5 days Jun, Doxycycline Hyclate 100 MG 1 capsule Orally Twice a day for 7 day(s) Jun, Treatment Notes Assessment Notes Clinical Notes COPD with exacerbation Will start with the Doxy. Pr ednisone sent in the event her sxs are not significantly improved in the next few days. Pt agrees with plan and will closely monitor her blood glucose levels while on the Prednisone. Rest, fluids. Pt to monitor for increased work of breathing, fever or CP. F/U in 5-7 days if sxs not improved. Next Appt Details Provider Name:Bronwyn Segundo, 2020-07-08 01 :45:00 PM, [address] [place], [address], Insurance Providers Payer Name Payer Address Payer Phone Insured Name Patient Relati onship to Insured Coverage Start Date Coverage End Date [facility] [employer] [address] [address] [facility] [phone] YESICA JACKSON self MEDICAID [facility] [address] [facility] [id number] YESICA JACKSON self
--- OUTSIDE RECORDS SUMMARY | 2020-09-15 14:19 | CCD | Continuity of Care Document ---
Author Author Riya AQUINO Organization Unknown Address [address] [place] [address] Phone [phone] Care Team Providers Care Rn Heart Name Role Phone [facility] Problems Active Problems Provider Date Anemia BERT Wong Onset: 07/22/2020 Anxiety BERT Wong Onset: 07/22/2020 Arthritis BERT Wong Onset: 07/22/2020 Asthma BERT Wong Onset: 07/22/2020 Low back pain BERT Wong Onset: 07/22/2020 Transfusion of blood product BERT Wong Onset: 07/03 Chronic bronchitis BERT Wong Onset: 07/22/2020 Cataract BERT Wong Onset: 07/22/2020 Congestive heart failure BERT Wong Onset: 07/22/20 20 Mild depression BERT Wong Onset: 07/22/2020 Diabetes mellitus BERT Wong Onset: 07/22/2020 Gastroesophageal reflux disease BERT Wong Onset: 1 09/22/2019 Gout BERT Wong Onset: 07/22/2020 Essential hypertension BERT Wong Onset: 07/22/2020 Kidney disease BERT Wong Onset: 07/22/2020 FH: Thyroid disorder BERT Wong Onset: 07/22/2020 Social History Type Date Description Comments Sex Unknown Tobacco Use Start: Unknown End: Unknown Patient is a former smoker Smoking Status Reviewed: 07/22/20 Patient is a former smoker Allergies, Adverse Reactions, Alerts Active Allergies Reaction Severity Comments Date Amoxicillin Hives, rash Moderate 07/22/2020 Sulfa rash Moderate 07/22/2020 Tramadol rash Moderate 07/22/2020 Byetta sick Moderate 07/22/2020 Pioglitazone Congestive heart failure Severe Medications Active Medications SIG Qnty Indications Ordering Provide r Date Vitamin B12 take 1 tablet once daily Unknown Montelukast Sodium 10mg Tablets 1 by mouth every day Unknown Atorvastatin Calcium 40mg Tablets 1 by mouth every day Unknown Onetouch Ultra Strips Test Four Times A Day Unknown Glipizide/Metformin Hydrochloride 5-500mg Tablets Take One Tablet By Mouth Every Day AT Supper Unknown Nystatin 969878Dcnp/GM Powder Apply To Affected Area S Under Breast Two Times A Day Un known Clotrimazole 10mg Taylor Dissolve 1 Taylor 5 Times Daily as Needed Unknown 00 Doxycycline Hyclate 100mg Capsules Jessica Nguyen, Prednisone 10mg Tablets Jessica Nguyen, Unifine Pentips Plus 31G X 5 mm Mi sc Use Two Times A Day as Directed Unknown Levothyroxine Sodium 150mcg Tablet s Take One Tablet By Mouth Every Morning On Empty Stomach Unknown Alprazolam 0.25mg Tablets Unknown Rhona-Radha 8.6mg Tablets Take Two Tablets By Mouth Two Times A Day Unknown Cephalexin 500mg Capsules Unknown Ondansetron 4mg Tablets Dispers Morteza Lopez Tobramycin-Dexamethasone 0.3-0.1% Suspension Morteza Lopez Buspirone HCL 10mg Tablets Shoshana Walters Albuterol Sulfate HFA 108(90Base) mcg/Act Aerosol Inhale Two Puffs By Mouth Every 4 Hours as Needed For Shortness Of Breath Cough Wheeze Unknown Advair Diskus 500-50mcg/Dose Aeros ol 1 puff twice a day Unknown Omeprazole 40mg Capsules DR 1 by mouth every day Unknown Senna 8.6mg Capsules 2 caps by mouth at bedtime Unknown Calcitriol 0.25mcg Capsules take 0.5 once daily Unknown Levothyroxine Sodium 175mcg Tablet s 1 by mouth every day Unknown Buspirone HCL 15mg Tablets 1 tab by mouth twice a day Unknown Furosemide 40mg Tablets 1 by mouth every day Unknown Sertraline HCL 100mg Tablets take 1.5 tablets once daily Unknown Losartan Potassium 50mg Tablets 1 by mouth every day Unknown Gabapentin 300mg Capsules take 1 tablet three times daily Unknown Ferrous Gluconate 324(38Fe) mg Tab lets 1 by mouth every day Unknown Folic Acid 1mg Tablets 1 by mouth every day Unknown Docusate Sodium 100mg Capsules 1 cap by mouth once a day Unknown Allopurinol 300mg Tablets 1 by mouth every day Unknown Glipizide-Metformin 5-500mg once daily Unknown Levemir 100Unit/ML Solution 14 units sq am Unknown Victoza 18mg/3ML Solution Pen-Inject Unknown Incruse Ellipta 62.5mcg/Inh Aeroso l 1 inhalation once daily Unknown Albuterol Nebulizer 0.25 as needed Unknown 0 Immunizations Description No Information Available Vital Signs Date Vital Result Comment 07/22/2020 10:30am BP Systolic 127 mmHg BP Diastolic 68 mmHg Heart Rate 84 /min Respiratory Rate 20 /min O2 % BldC Oximetry 94 % Results Description No Information Available Procedures Description No Information Available Medical Devices Description No Information Available Encounters Description No Information Available Assessments Date Code Description Provider 07/22/2020 M48.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
--- OUTSIDE RECORDS SUMMARY | 2020-09-15 14:19 | CCD ---
Author Author [facility] Organization [facility] Address Unknown Phone Unavailable Care Team Providers Care Registered Pharmacy Technician Name Role Phone Morteza Lopez Unavailable PROBLEMS Type Condition ICD9-CM Code DXT94-AJ Code Onset Dates Condition S tatus SNOMED Code Notes Problem Chronic heart failure with preserved ejection fraction I50.32 Active 002320185 There was the suspicion that she had [...] in September 2019. Problem Hypercholesterolemia E78.00 Active 30006289 He r lipids are borderline controlled as of September 2019 on Lipitor 40 mg daily. Problem Gastroparesis K31.84 Active 880376102 Gastropa resis was identified on upper endoscopy in April 2012. There is little therapy to offer because Reglan which causes parkinsonism. She declines this. Her diesel maintenance technician is assisting with this. He has recommended high-dose MiraLax therapy to her, and advises chronic PPI therapy (Dr. Messer). Problem Gout, unspecified M10.9 Active 44295111 Uric acid controlled on medication (last uric acid level was 5.1 in 01/2019). Takes allopurinol since about April 2007. Problem Primary osteoarthritis of left hand M19.042 Acti ve 33147513 Try Voltaren gel. 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 She sees a instrument maker apprentice regularly. Problem Dysthymic disorder F34.1 Active 86535148 On B uspar instead of imipramine), Zoloft and Xanax (dose reduced in August 2019). Sees a mental health provider monthly and her Zoloft was increased to 100 mg daily in October 2011. TSH was normal in 01/2019. Problem Sleep apnea, unspecified G47.30 Active 3717790 6 Had sleep study in Summer 2012. She has been prescribed BiPAP but does not tolerate it. Her compressor station engineer chief is aware. Problem Hypothyroidism, unspecified E03.9 Active 7113 0008 Her current thyroid replacement dose is 175 mcg daily, skipping 1 dose a week. Her most recent TSH was 1.38 in 01/2019. Problem Vitamin D deficiency, unspecified E55.9 Active 41168344 Discovered 12/07. Last Vitamin D level was greater than 100 in August 2017. I stopped her weekly Drisdol and placed her on calcitriol because of an elevated PTH then. A follow-up vitamin D level in September 2018 was 37. 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 She sees an eye doctor regularly and [...] kidney disease, stage 3 (moderate) N18.3 Active 453395221 Baseline GFR has been declining over the [...] Primary osteoarthritis, right hand M19.041 Activ e 330736847 Problem B12 deficiency E53.8 Active 047505340 A yo leggett low vitamin B12 level of 285 was identified when she was hospitalized in late January 2018. She was started on parenteral therapy at discharge but I switched her to oral therapy (this is actually standard of care) in March 2018. Her vitamin B-12 level was 1800+ in January 2019. Problem Right lumbar radiculopathy M54.16 Active 63883 6877 Has been evaluated by orthopedics and had [...] problems. Problem Peripheral vascular disease I73.9 Active 8907 18014 She had a vascular procedure on her right leg in August 2019 and will be undergoing a left leg procedure in the future. Problem Gastro-esophageal reflux disease without esophagitis K21.9 Active 826362423 On omeprazole 40 mg twice daily. The dos e was increased by diesel maintenance technician from once daily apparently in early 2017. Her last EGD was October 2017 and she underwent esophageal dilation despite fairly unremarkable findings. Problem COPD with exacerbation J44.1 Active 067110232 Problem Esophageal obstruction K22.2 Active 03520552 She has had symptoms of an esophageal stricture in that she choked easily and sometimes vomited after meals. Upper endoscopy with dilation was done March 18, 2012 with improvement. PPI chronically advised by diesel maintenance technician in late 2011 (Dr. Messer). She was [...] reflex. She may need follow-up with her diesel maintenance technician. Problem Chronic obstructive pulmonary disease, unspecified J44.9 Active 05380412 Her symptoms are generally controlled at present. Her compressor station engineer chief had her on Tudorza and this was stopped due to a dry mouth, although more likely this is from imipramine. No change in medications needed. She sees a compressor station engineer chief, most recently in every 2018. In May 2018 her FEV1 was 1.37 L with a ratio of 83%, consistent with restrictive physiology. She is on Advair, Incruse Ellipta and when necessary albuterol. She probably has a component of cor pulmonale. She is on Lasix, currently apparently 40 mg twice daily. Problem Pseudogout M11.20 Active 879569076 She had rig ht knee arthropathy during her hospital stay in January-March 2018, and calcium pyrophosphate crystals were identified on aspiration. Because of ongoing discomfort, she had her right knee injected with Kenalog by [place] 03/07/2018, and she has had 3 Euflexxa injections in Summer 2018. Problem Sacroiliac joint dysfunction M53.3 Active 202 223235 Problem Sacroiliac inflammation M46.1 Active 49174405 7 Problem Sacroiliitis, not elsewhere classified M46.1 A ctive 28790718 ALLERGIES Allergen (clinical drug ingredient) Drug/Non Drug Allergy do cumented on EMR Reaction Allergy Type Onset Date Status Sulfa (for allergy use only) Itch Drug Allergy Active tramadol Tramadol(NDC Code:[address]-03) Itch Drug Allergy Active Penicillin (For Allergies Use Only) Rash Drug Allerg y Active exenatide Byetta 10 MCG Pen(NDC Code:[address]-53) Very sick Drug Allergy Active pioglitazone Actos(NDC Code:[address]-86) CHF Drug Allergy Active ENCOUNTERS from 1945 to 2020-06-25 Encounter Location Date Provider Diagnosis [address] [address] Jun, [facility] Vaccine Route Administration Date Status Influenza (High [...] Education Language: Question Answer Notes Languages spoken: Cypriot Hinduism: Question Answer Notes Hinduism No druze beliefs that would impact health care. Sexual [...] Notes Start Da te End Date Status Folic Acid 1 MG 1 tablet Orally Once a day for 90 day(s) Active Lancets _ as directed DX: E11.21 Four times a day for 90 day(s) Mar, Active Depend Pant Extra Large 1 ea Extra Large. Weight-220.6 pounds, Height 62 inches DX: R32 Daily for 90 days Jan, Active Flonase 50 MCG/ACT 2 sprays in each nostril Nasally Once a day f or 30 day(s) Jun, Active Nystatin 267870 UNIT/GM 1 application to area under breast Externally Twice a day for 90 day(s) Active GlipiZIDE-Metformin HCl 5-500 MG 1 tablet Orally Daily at castaneda pper for 90 day(s) Active TobraDex 0.3-0.1 % 1 drop into left eye Ophthalmic tid Oct, Not-Taking Clotrimazole 10 MG 1 willy Mouth/Throat Five t imes a day as needed for 90 day(s) Sep, Active Singulair 10 MG 1 tablet in the evening Orally Once a day for 90 Active Calcitriol 0.5 MCG 1 capsule Orally Once a day for 90 days Aug, Active Ferrous Gluconate 324 (38 Fe) MG 1 tablet Orally Every other day for 90 days Active Levothyroxine Sodium 150 MCG 1 tablet on an empty stom ach in the morning Orally Once a day for 90 days Active Advair Diskus 500-50 MCG/DOSE 1 puff Inhalation Twice a day for 90 Active Colace 100 MG 1 capsule Orally Once a day for 90 day(s) Active Lasix 40 MG 1 tab Orally twice daily for 90 day(s) Active Blood Glucose Test Strip _ One [...] Dx: M19.90 for 90 day(s) Sep, Active Lipitor 40 MG 1 tablet Orally Once a day for 90 days 2014 Active Ventolin HFA 108 (90 Base) MCG/ACT 2 puffs Inhalation Every 4 hours as needed for SOB, Cough, Wheeze for 90 day(s) Aug, Active Levemir FlexTouch 100 UNIT/ML 14 units Subcutaneous daily--take in th e AM Active Omeprazole 40 MG 1 capsule Orally Twice a day for 90 days Active Allopurinol 300 MG 1 tablet Orally Once a day for 90 days Active PredniSONE 10 MG 3 tablets Orally Once a day for 5 days Jun, Active Pen Taylor 10/15" 31G X 5 MM BD ultra fine subcutaneou sly twice a day DX: E11.9 for 90 day(s) Active Gabapentin 300 MG 1 capsule Orally three times daily Active Hospital bed as directed With mattress m54.16 for 2000 days Sep, Active Doxycycline Hyclate 100 MG 1 capsule [...] Information RESULTS No Results REASON FOR VISIT refill-nystatin and clotrimazole MEDICAL (GENERAL) HISTORY Type Description Date Medical [...] 2017 Hospitalization History Pancreatitis 12/12/2015 Hospitalization History [facility] ER- Cholecystitis-Chronic 2015 Hospitalization History [place] in [place]-[facility] Hospitalization History [facility] hospital-right lumbar radiculopa thy 02/26-03/02/2018 Hospitalization History [facility] Pneumonia, COPD 06/27-2018 Hospitalization History pneumonia, CHF 2019 Hospitalization History RIGHT LEG ANGIO /2019 Goals Section No Information Health Concerns No Information MEDICAL EQUIPMENT No Information MENTAL STATUS No Information FUNCTIONAL STATUS No Information ASSESSMENTS No Information PLAN OF TREATMENT Medication Medication Name Sig Start Date Stop Date PredniSONE 10 MG 3 tablets Orally Once a day for 5 days Jun, Doxycycline Hyclate 100 MG 1 capsule Orally Twice a day for 7 day(s) Jun, Clotrimazole 10 MG 1 willy Mouth/Throat Five t imes a day as needed for 90 day(s) Sep, Nystatin 394895 UNIT/GM 1 application to area under breast Externally Twice a day for 90 day(s) Next Appt Details Provider Name:Bronwyn Segundo 2020-07-08 01 :45:00 PM, [address] [place], [address], Insurance Providers Payer Name Payer Address Payer Phone Insured Name Patient Relati onship to Insured Coverage Start Date Coverage End Date MEDICAID [employer] [address] [facility] [id number] YESICA JACKSON [employer] [address] [address] [facility] [phone] YESICA JACKSON self
--- OUTSIDE RECORDS SUMMARY | 2020-09-15 14:19 | CCD ---
Author Author Selena Riyatate Anna Organization Unknown Address [address] [address] Phone Care Team Providers Care Traffic Representative Name Role Phone Shoshana Walters PCP Allergies, Adverse Reactions, Alerts Concept Allergy Name Reaction Severity Onset Date Status Documentation Date Phone Number Npid Taxonomy Code Taxonomy Desc Author Last Name Author Fi rst Name Concept Type 863386 Byetta (exenatide) unspecified Active 10/29/2014 RXNORM 595378 penicillin v potassium unspecified Inactive 10/29/2014 RXNORM Problem List Concept Problem Description Status Start Date Created Date Resolv ed Date Snomed Code F41.9 Unspecified Anxiety Disorder Active 08/05/2015 08/05/2015 F33.0 Major Depressive Disorder, Recurrent episode, Mild Act drew 08/05/2015 08/05/2015 Medications Rx Norm Medication Route Route Concept Start Date Stop Date Dosage Hieu quency Duration Formula Strength Dosage Form Dosage Form Code Dosage Description Medication Id Account Npid Author First Name Author Last Name Taxonomy Code Taxonomy Desc Phone Number [id number] sertraline 06/15/2018 once a day 100 mg tablet as directed [id number] [id number] Shoshana Walters [id number] Psychiatric/Mental Health [phone] [id number] buspirone by mouth I16450 11/15/2019 twice a day 15 [place] [id number] Shoshana Walters [id number] Psychiatric/Mental Health [id number] Social History Social History Element Description Concept Effective Date Smoking Status Unknown if ever smoked [id number] Immunizations No Data in Section Vital Signs Encounter Date Height Ins Weight Lbs Bmi Bp Systolic Bp Diastoli c Oxygen Saturation Respiration Rate Pulse Rate Body Temp Head Circumference Heigh t Lying 07/24/2020 0.00 0.00 0.00 0 0 0.00 0 0 0.00 0.0 0.0 0 Procedures Date Concept Id Description Targeted Site Concept Targeted Site Concept Type 07/24/2020 59153 E/M Level 3 - Established Patient CPT Patient has no history of implantable de vices Encounters Encounter Start Date End Date Encounter Type Description Diagnosis Di agnosis Desc Location Author First Name Author Last Name Npid Taxonomy Cod e Taxonomy Desc Phone Number Location Addr1 Location Addr2 Location [facility] Location Sta te Location Zip [id number] 07/24/2020 07/24/2020 58853 E/M Level 3 - Established [place] b[place]arda F41.9 Anxiety Disorder, Unspecified [facility] [phone] [id number] Psychiatric/Mental Health [phone] [address] [place], [place] [address] [facility] [address] Plan of Treatment No Data in Section Lab Results No Data in Section Instructions No Data in Section Functional Cognitive Status No Data in Section Insurance Providers Insurance Id Policy Effective Date Policy Thru Date ZuzuChe N marco [id number] 2018 [employer] Managed Medicare [id number] 2011 MEDICAID
--- OUTSIDE RECORDS SUMMARY | 2020-09-15 14:19 | CCD | Continuity of Care Document ---
Author Author Riya FRANCO Organization Unknown Address [address] [place] [address] Phone [phone] Problems Active Problems Provider Date Obesity Jhoan GEORGE Silveira Onset: 01/21/2012 Social History Type Date Description Comments Sex Unknown Tobacco Use Start: Unknown End: Unknown Quit Tobacco Use Start: Unknown Non-Smoker, Non-Drinker, Non-Charlie g User Smoking Status Reviewed: 06/21/19 Non-Smoker, Non-Drinker, Non- Drug User Tobacco Use [...] Available Procedures Date Code Description Status 01/29/2020 [id number] Mammogram Completed 06/17/2015 07895180 Mammogram Completed 01/27/2006 162547462 Bone Mineral Density Test Comple [place] Description No Information Available Encounters Description No Information Available Assessments Description No Information Available Plan of Treatment Future Appointment(s):* 07/01/2022 2:00 pm - Sonam Franco MD at [facility] oceanographer geological Functional Status Description No Information Available Mental Status Description No Information Available Referrals Description No Information Available
--- OUTSIDE RECORDS SUMMARY | 2020-09-15 14:19 | CCD ---
Author Author [facility] [employer] [facility] Organization [facility] Address Unknown Phone Unavailable Care Team Providers Care Health Information Administrator Name Role Phone Morteza Lopez Unavailable PROBLEMS Type Condition ICD9-CM Code [id number] Code Onset Dates Condition S tatus SNOMED Code Notes Problem Chronic heart failure with preserved ejection fraction I50.32 Active 549721691 There was the suspicion that she had [...] in September 2019. Problem Hypercholesterolemia E78.00 Active 36937938 He r lipids are borderline controlled as of 03/2020 on Lipitor 40 mg daily; TGs were elevated. Problem Gastroparesis K31.84 Active 208720016 Gastropa resis was identified on upper endoscopy in April 2012. There is little therapy to offer because Reglan which causes parkinsonism. She declines this. Her detective investigator is assisting with this. He has recommended high-dose MiraLax therapy to her, and advises chronic PPI therapy (Dr. Messer). Problem Gout, unspecified M10.9 Active 00918274 Uric acid controlled on medication (last uric acid level was 5.1 in 01/2019). Takes allopurinol since about April 2007. Problem Primary osteoarthritis of left hand M19.042 Acti ve 60213650 Try Voltaren gel. 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 She sees a automatic head sawyer regularly. Problem Dysthymic disorder F34.1 Active 09263910 On B uspar instead of imipramine), Zoloft and Xanax (dose reduced in August 2019). Sees a mental health provider monthly and her Zoloft was increased to 100 mg daily in October 2011. TSH was normal in 01/2019. Problem Sleep apnea, unspecified G47.30 Active 1131147 6 Had sleep study in Summer 2012. She has been prescribed BiPAP but does not tolerate it. Her pantograph i engraver is aware. Problem Hypothyroidism, unspecified E03.9 Active 9273 0008 Her current thyroid replacement dose is 175 mcg daily, skipping 1 dose a week. Her most recent TSH was 0.454 in 03/2020. Problem Vitamin D deficiency, unspecified E55.9 Active 21189963 Discovered 12/07. Last Vitamin D level was greater than 100 in August 2017. I stopped her weekly Drisdol and placed her on calcitriol because of an elevated PTH then. A follow-up vitamin D level in September 2018 was 37. 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 She sees an eye doctor regularly and [...] kidney disease, stage 3 (moderate) N18.3 Active 483259944 Baseline GFR has been declining over the [...] Primary osteoarthritis, right hand M19.041 Activ e 744946660 Problem B12 deficiency E53.8 Active 715373728 A yo leggett low vitamin B12 level of 285 was identified when she was hospitalized in late January 2018. She was started on parenteral therapy at discharge but I switched her to oral therapy (this is actually standard of care) in March 2018. Her vitamin B-12 level was 1800+ in January 2019. Problem Right lumbar radiculopathy M54.16 Active 57137 9256 Has been evaluated by orthopedics and had [...] problems. Problem Peripheral vascular disease I73.9 Active 5901 26409 She had a vascular procedure on her right leg in August 2019 and will be undergoing a left leg procedure in the future. Problem Gastro-esophageal reflux disease without esophagitis K21.9 Active 019461677 On omeprazole 40 mg twice daily. The dos e was increased by detective investigator from once daily apparently in early 2017. Her last EGD was October 2017 and she underwent esophageal dilation despite fairly unremarkable findings. Problem COPD with exacerbation J44.1 Active 694338731 Problem Esophageal obstruction K22.2 Active 94472236 She has had symptoms of an esophageal stricture in that she choked easily and sometimes vomited after meals. Upper endoscopy with dilation was done March 18, 2012 with improvement. PPI chronically advised by detective investigator in late 2011 (Dr. Messer). She was [...] reflex. She may need follow-up with her detective investigator. Problem Chronic obstructive pulmonary disease, unspecified J44.9 Active 24073574 Her symptoms are generally controlled at present. Her pantograph i engraver had her on Tudorza and this was stopped due to a dry mouth, although more likely this is from imipramine. No change in medications needed. She sees a pantograph i engraver, most recently in every 2018. In May 2018 her FEV1 was 1.37 L with a ratio of 83%, consistent with restrictive physiology. She is on Advair, Incruse Ellipta and when necessary albuterol. She probably has a component of cor pulmonale. She is on Lasix, currently apparently 40 mg twice daily. Problem Pseudogout M11.20 Active 004840555 She had rig ht knee arthropathy during her hospital stay in January-March 2018, and calcium pyrophosphate crystals were identified on aspiration. Because of ongoing discomfort, she had her right knee injected with Kenalog by [place] 03/07/2018, and she has had 3 Euflexxa injections in Summer 2018. Problem Sacroiliac joint dysfunction M53.3 Active 202 304793 Problem Sacroiliac inflammation M46.1 Active 89215500 7 Problem Sacroiliitis, not elsewhere classified M46.1 A ctive 30648571 ALLERGIES Allergen (clinical drug ingredient) Drug/Non Drug Allergy do cumented on EMR Reaction Allergy Type Onset Date Status Sulfa (for allergy use only) Itch Drug Allergy Active tramadol Tramadol(NDC Code:[address]-84) Itch Drug Allergy Active Penicillin (For Allergies Use Only) Rash Drug Allerg y Active exenatide Byetta 10 MCG Pen(NDC Code:[address]-30) Very sick Drug Allergy Active pioglitazone Actos(ND Code:[address]-81) CHF Drug Allergy Active ENCOUNTERS from 1944 to 2020-08-19 Encounter Location Date Provider Diagnosis [address] [address] Aug, Morteza Lopez 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 Sexual [...] a day for 90 day(s) Mar, Active Blood Glucose Test Strip _ One Touch Ultra 2 In Vitro, DX: E11.21 Four times a day for 90 day(s) May, Active Flonase 50 MCG/ACT 2 sprays in each nostril Nasally Once a day f or 30 day(s) Jun, Active Nystatin 872830 UNIT/GM 1 application to area under breast Externally Twice a day for 90 day(s) Active Depend Pant Extra Large 1 ea Extra Large. Weight-220.6 pounds, Height 62 inches DX: R32 Daily for 90 days Jan, Active Lasix 40 MG 1 tab Orally twice daily for 90 day(s) Active Clotrimazole 10 MG 1 willy Mouth/Throat Five t imes a day as needed for 90 day(s) Sep, Active Singulair 10 MG 1 tablet in the evening Orally Once a day for 90 Active TobraDex 0.3-0.1 % 1 drop into left eye Ophthalmic tid Oct, Not-Taking Ferrous Gluconate 324 (38 Fe) MG 1 tablet Orally Every other day for 90 days Active Levothyroxine Sodium 150 MCG 1 tablet on an empty stom ach in the morning Orally Once a day for 90 days Active Senna 8.6 MG 2 tablets Orally twice daily for 90 day(s) Jan, Active Colace 100 MG 1 capsule Orally Once a day for 90 day(s) Active Calcitriol 0.5 MCG 1 capsule Orally Once a day for 90 days Aug, Active Advair Diskus 500-50 MCG/DOSE 1 puff Inhalation Twice a day for 90 Active Victoza 18 MG/3ML 1.8mg Subcutaneous Once a day for 90 days November, Active Pen [place] 10/15" 31G X 5 MM BD ultra fine subcutaneou sly twice a day DX: E11.9 for 90 day(s) Active Zofran ODT 4 MG 1 tablet on the tongue and a llow to dissolve Orally before meals and at bedtime (four times a day) for 14 days Dec, Active Losartan Potassium 50 MG 1 tablet Orally Once a day for 90 day(s ) Jan, Active BusPIRone HCl 15 MG 1 tablet Orally Twice a day Active May Have - hand rail by toilet _ [...] a day for 5 days Jun, Active GlipiZIDE-Metformin HCl 5-500 MG 1 tablet Orally Daily at pper for 90 day(s) Active Gabapentin 300 MG [...] Information RESULTS No Results REASON FOR VISIT Labs for 09/25/2020 appt MEDICAL (GENERAL) HISTORY Type Description Date Medical [...] 2017 Hospitalization History Pancreatitis 12/12/2015 Hospitalization History [facility] ER- Cholecystitis-Chronic 2015 Hospitalization History [facility] [place]-URI Hospitalization History [facility] hospital-right lumbar radiculopa thy 02/26-03/02/2018 Hospitalization History [facility] Pneumonia, COPD 06/27-2018 Hospitalization History pneumonia, CHF 2019 Hospitalization History RIGHT LEG [facility] Goals Section No Information Health Concerns No Information MEDICAL EQUIPMENT No Information MENTAL STATUS No Information FUNCTIONAL STATUS No Information ASSESSMENTS Encounter Date Diagnosis Assessment Notes Treatment Notes Treatm ent Clinical Notes Aug, Controlled type 2 diabetes shayy singh with microalbuminuric diabetic nephropathy (ICD-10 - E11.21) On Levemir insulin (18 units daily), glipizide/metformin, and Victoza [...] seen about every 8 weeks by her automatic head sawyer. She sees an eye doctor regularly and [...] her basal insulin to 14 units daily. Aug, Chronic kidney disease, stage 3 (moderat e) (ICD-10 - N18.3) Baseline GFR has been declining over the [...] controlled, most recently 51 in September 2019. Aug, Hypothyroidism, unspecified (ICD-10 - E0 3.9) Her current thyroid replacement dose is 175 mcg daily, skipping 1 dose a week. Her most recent TSH was 0.454 in 03/2020. Aug, Hypercholesterolemia (ICD-10 - E78.00) H er lipids are borderline controlled as of 03/2020 on Lipitor 40 mg daily; TGs were elevated. Aug, Anemia in other chronic dise ases classified elsewhere (ICD-10 - D63.8) Patient's anemia is chronic and likely r [...] apparently tolerating her oral iron at present. PLAN OF TREATMENT Medication Medication Name Sig Start Date Stop Date Calcitriol 0.5 MCG 1 capsule Orally Once a day for 90 days 2017 Doxycycline Hyclate 100 MG 1 capsule Orally Twice a day for 7 day(s) Jun, Nystatin 853955 UNIT/GM 1 application to area under breast Externally Twice a day for 90 day(s) PredniSONE 10 MG 3 tablets Orally Once a day for 5 days Jun, Blood Glucose Test Strip _ One Touch Ultra 2 In Vitro, DX: E11.21 Four times a day for 90 day(s) May, Clotrimazole 10 MG 1 willy Mouth/Throat Five t imes a day as needed for 90 day(s) Sep, Future Test Test Name Order Date Comprehensive Metabolic Profile (CMP) [id number] HEMOGLOBIN A1c [id number] PTH INTACT [id number] MICROALBUMIN RANDOM [id number] TSH [id number] LIPID PANEL (CARDIAC RISK) [id number] CBC with Differential [id number] VITAMIN D 25-HYDROXY [id number] Next Appt Details Provider Name:Morteza Lopez, 2020-09-25 03 :30:00 PM, [address] [place], [address], Insurance Providers Payer Name Payer Address Payer Phone Insured Name Patient Relati onship to Insured Coverage Start Date Coverage End Date MEDICAID [employer] [address] [facility] [id number] YESICA JACKSON [employer] [address] [address] [facility] [phone] YESICA JACKSON self
--- OUTSIDE RECORDS SUMMARY | 2020-09-15 14:19 | CCD ---
Author Author [email or web address] Organization [email or web address] Address Unknown Phone Unavailable Care Team Providers Care Kitchen And Counter Worker Name Role Phone Morteza Lopez Unavailable PROBLEMS Type Condition ICD9-CM Code [id number] Code Onset Dates Condition S tatus SNOMED Code Notes Problem Chronic heart failure with preserved ejection fraction I50.32 Active 686543646 There was the suspicion that she had [...] in September 2019. Problem Hypercholesterolemia E78.00 Active 44779188 He r lipids are borderline controlled as of September 2019 on Lipitor 40 mg daily. Problem Gastroparesis K31.84 Active 264688703 Gastropa resis was identified on upper endoscopy in April 2012. There is little therapy to offer because Reglan which causes parkinsonism. She declines this. Her chief cook is assisting with this. He has recommended high-dose MiraLax therapy to her, and advises chronic PPI therapy (Dr. Messer). Problem Gout, unspecified M10.9 Active 49399131 Uric acid controlled on medication (last uric acid level was 5.1 in 01/2019). Takes allopurinol since about April 2007. Problem Primary osteoarthritis of left hand M19.042 Acti ve 38006333 Try Voltaren gel. 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 She sees a lead section supervisor regularly. Problem Dysthymic disorder F34.1 Active 74522539 On B uspar instead of imipramine), Zoloft and Xanax (dose reduced in August 2019). Sees a mental health provider monthly and her Zoloft was increased to 100 mg daily in October 2011. TSH was normal in 01/2019. Problem Sleep apnea, unspecified G47.30 Active 6593214 6 Had sleep study in Summer 2012. She has been prescribed BiPAP but does not tolerate it. Her ore buyer is aware. Problem Hypothyroidism, unspecified E03.9 Active 4793 0008 Her current thyroid replacement dose is 175 mcg daily, skipping 1 dose a week. Her most recent TSH was 1.38 in 01/2019. Problem Vitamin D deficiency, unspecified E55.9 Active 70163181 Discovered 12/07. Last Vitamin D level was greater than 100 in August 2017. I stopped her weekly Drisdol and placed her on calcitriol because of an elevated PTH then. A follow-up vitamin D level in September 2018 was 37. 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 She sees an eye doctor regularly and [...] kidney disease, stage 3 (moderate) N18.3 Active 980869841 Baseline GFR has been declining over the [...] Primary osteoarthritis, right hand M19.041 Activ e 651982867 Problem B12 deficiency E53.8 Active 841501871 A yo leggett low vitamin B12 level of 285 was identified when she was hospitalized in late January 2018. She was started on parenteral therapy at discharge but I switched her to oral therapy (this is actually standard of care) in March 2018. Her vitamin B-12 level was 1800+ in January 2019. Problem Right lumbar radiculopathy M54.16 Active 33064 7200 Has been evaluated by orthopedics and had [...] problems. Problem Peripheral vascular disease I73.9 Active 9425 75697 She had a vascular procedure on her right leg in August 2019 and will be undergoing a left leg procedure in the future. Problem Gastro-esophageal reflux disease without esophagitis K21.9 Active 544315392 On omeprazole 40 mg twice daily. The dos e was increased by chief cook from once daily apparently in early 2017. Her last EGD was October 2017 and she underwent esophageal dilation despite fairly unremarkable findings. Problem COPD with exacerbation J44.1 Active 892676144 Problem Esophageal obstruction K22.2 Active 46492320 She has had symptoms of an esophageal stricture in that she choked easily and sometimes vomited after meals. Upper endoscopy with dilation was done March 18, 2012 with improvement. PPI chronically advised by chief cook in late 2011 (Dr. Messer). She was [...] reflex. She may need follow-up with her chief cook. Problem Chronic obstructive pulmonary disease, unspecified J44.9 Active 64950822 Her symptoms are generally controlled at present. Her ore buyer had her on Tudorza and this was stopped due to a dry mouth, although more likely this is from imipramine. No change in medications needed. She sees a ore buyer, most recently in every 2018. In May 2018 her FEV1 was 1.37 L with a ratio of 83%, consistent with restrictive physiology. She is on Advair, Incruse Ellipta and when necessary albuterol. She probably has a component of cor pulmonale. She is on Lasix, currently apparently 40 mg twice daily. Problem Pseudogout M11.20 Active 998559578 She had rig ht knee arthropathy during her hospital stay in January-March 2018, and calcium pyrophosphate crystals were identified on aspiration. Because of ongoing discomfort, she had her right knee injected with Kenalog by [place] 03/07/2018, and she has had 3 Euflexxa injections in Summer 2018. Problem Sacroiliac joint dysfunction M53.3 Active 202 445323 Problem Sacroiliac inflammation M46.1 Active 58702583 7 Problem Sacroiliitis, not elsewhere classified M46.1 A ctive 61317142 ALLERGIES Allergen (clinical drug ingredient) Drug/Non Drug Allergy do cumented on EMR Reaction Allergy Type Onset Date Status Sulfa (for allergy use only) Itch Drug Allergy Active tramadol Tramadol(NDC Code:[address]-83) Itch Drug Allergy Active Penicillin (For Allergies Use Only) Rash Drug Allerg y Active exenatide Byetta 10 MCG Pen(NDC Code:[address]-49) Very sick Drug Allergy Active pioglitazone Actos(NDC Code:[address]-83) CHF Drug Allergy Active ENCOUNTERS from 1944 to 2020-07-30 Encounter Location Date Provider Diagnosis [facility] Resident [address] [place] [address] Jul, Morteza Lopez Chronic kidney disease, stag e 3 (moderate) N18.3 IMMUNIZATIONS Vaccine Route Administration Date Status Influenza [...] Education Language: Question Answer Notes Languages spoken: French Nondenominational: Question Answer Notes Nondenominational No mormon beliefs that would impact health care. Sexual [...] f or 30 day(s) Jun, Active Nystatin 886181 UNIT/GM 1 application to area under breast [...] day for 90 days November, Active Pen [place] 3/16" 31G X 5 MM BD ultra [...] at castaneda pper for 90 day(s) Active Gabapentin 300 [...] Information RESULTS No Results REASON FOR VISIT refill-calcitriol MEDICAL (GENERAL) HISTORY Type Description Date Medical [...] 11 Surgical History tubal ligation in the 1970s 06/22/1972 Surgical History Left knee replaced 2000? [...] 2017 Hospitalization History Pancreatitis 12/12/2015 Hospitalization History [facility] ER- Cholecystitis-Chronic 2015 Hospitalization History [facility] [place]-URI Hospitalization History [facility] hospital-right lumbar radiculopa thy 02/26-03/02/2018 Hospitalization History [facility] Pneumonia, COPD 06/27-2018 Hospitalization History pneumonia, CHF 2019 Hospitalization History RIGHT LEG /2019 Goals Section No Information Health Concerns No Information MEDICAL EQUIPMENT No Information MENTAL STATUS No Information FUNCTIONAL STATUS No Information ASSESSMENTS Encounter Date Diagnosis Assessment Notes Treatment Notes Treatm ent Clinical Notes Jul, Chronic kidney disease, stage 3 (moderate) (ICD- 10 - N18.3) PLAN OF TREATMENT Medication Medication Name Sig Start Date Stop Date Calcitriol 0.5 MCG 1 capsule Orally Once a day for 90 days 2017 Doxycycline Hyclate 100 MG 1 capsule Orally Twice a day for 7 day(s) Jun, Nystatin 727739 UNIT/GM 1 application to area under breast [...] day as needed for 90 day(s) Sep, Insurance Providers Payer Name Payer Address Payer Phone Insured Name Patient Relati onship to Insured Coverage Start Date Coverage End Date MEDICAID [employer] [address] [facility] [id number] YESICA JACKSON [employer] [address] [address] [facility] [id number] YESICA JACKSON
--- OUTSIDE RECORDS SUMMARY | 2020-09-15 14:19 | CCD ---
Author Author [facility] Organization [facility] Address Unknown Phone Unavailable Care Team Providers Care Shipping Receiving Clerk Name Role Phone Morteza Lopez Unavailable PROBLEMS Type Condition ICD9-CM Code [id number] Code Onset Dates Condition S tatus SNOMED Code Notes Problem Chronic heart failure with preserved ejection fraction I50.32 Active 338985406 There was the suspicion that she had [...] in September 2019. Problem Hypercholesterolemia E78.00 Active 99746680 He r lipids are borderline controlled as of September 2019 on Lipitor 40 mg daily. Problem Gastroparesis K31.84 Active 379728946 Gastropa resis was identified on upper endoscopy in April 2012. There is little therapy to offer because Reglan which causes parkinsonism. She declines this. Her machine shop worker is assisting with this. He has recommended high-dose MiraLax therapy to her, and advises chronic PPI therapy (Dr. Messer). Problem Gout, unspecified M10.9 Active 58265838 Uric acid controlled on medication (last uric acid level was 5.1 in 01/2019). Takes allopurinol since about April 2007. Problem Primary osteoarthritis of left hand M19.042 Acti ve 45043408 Try Voltaren gel. 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 She sees a climatologist regularly. Problem Dysthymic disorder F34.1 Active 93278001 On B uspar instead of imipramine), Zoloft and Xanax (dose reduced in August 2019). Sees a mental health provider monthly and her Zoloft was increased to 100 mg daily in October 2011. TSH was normal in 01/2019. Problem Sleep apnea, unspecified G47.30 Active 1541294 6 Had sleep study in Summer 2012. She has been prescribed BiPAP but does not tolerate it. Her lead nitrate processor is aware. Problem Hypothyroidism, unspecified E03.9 Active 5033 0008 Her current thyroid replacement dose is 175 mcg daily, skipping 1 dose a week. Her most recent TSH was 1.38 in 01/2019. Problem Vitamin D deficiency, unspecified E55.9 Active 64038539 Discovered 12/07. Last Vitamin D level was greater than 100 in August 2017. I stopped her weekly Drisdol and placed her on calcitriol because of an elevated PTH then. A follow-up vitamin D level in September 2018 was 37. 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 She sees an eye doctor regularly and [...] kidney disease, stage 3 (moderate) N18.3 Active 164700615 Baseline GFR has been declining over the [...] Primary osteoarthritis, right hand M19.041 Activ e 853982892 Problem B12 deficiency E53.8 Active 624454563 A yo leggett low vitamin B12 level of 285 was identified when she was hospitalized in late January 2018. She was started on parenteral therapy at discharge but I switched her to oral therapy (this is actually standard of care) in March 2018. Her vitamin B-12 level was 1800+ in January 2019. Problem Right lumbar radiculopathy M54.16 Active 72571 6418 Has been evaluated by orthopedics and had [...] problems. Problem Peripheral vascular disease I73.9 Active 1850 23821 She had a vascular procedure on her right leg in August 2019 and will be undergoing a left leg procedure in the future. Problem Gastro-esophageal reflux disease without esophagitis K21.9 Active 056237155 On omeprazole 40 mg twice daily. The dos e was increased by machine shop worker from once daily apparently in early 2017. Her last EGD was October 2017 and she underwent esophageal dilation despite fairly unremarkable findings. Problem COPD with exacerbation J44.1 Active 129691511 Problem Esophageal obstruction K22.2 Active 61180086 She has had symptoms of an esophageal stricture in that she choked easily and sometimes vomited after meals. Upper endoscopy with dilation was done March 18, 2012 with improvement. PPI chronically advised by machine shop worker in late 2011 (Dr. Messer). She was [...] reflex. She may need follow-up with her machine shop worker. Problem Chronic obstructive pulmonary disease, unspecified J44.9 Active 64256243 Her symptoms are generally controlled at present. Her lead nitrate processor had her on Tudorza and this was stopped due to a dry mouth, although more likely this is from imipramine. No change in medications needed. She sees a lead nitrate processor, most recently in every 2018. In May 2018 her FEV1 was 1.37 L with a ratio of 83%, consistent with restrictive physiology. She is on Advair, Incruse Ellipta and when necessary albuterol. She probably has a component of cor pulmonale. She is on Lasix, currently apparently 40 mg twice daily. Problem Pseudogout M11.20 Active 344590862 She had rig ht knee arthropathy during her hospital stay in January-March 2018, and calcium pyrophosphate crystals were identified on aspiration. Because of ongoing discomfort, she had her right knee injected with Kenalog by tx 03/07/2018, and she has had 3 Euflexxa injections in Summer 2018. Problem Sacroiliac joint dysfunction M53.3 Active 202 177509 Problem Sacroiliac inflammation M46.1 Active 64059575 7 Problem Sacroiliitis, not elsewhere classified M46.1 A ctive 10129123 ALLERGIES Allergen (clinical drug ingredient) Drug/Non Drug Allergy do cumented on EMR Reaction Allergy Type Onset Date Status Sulfa (for allergy use only) Itch Drug Allergy Active tramadol Tramadol(NDC Code:[address]-19) Itch Drug Allergy Active Penicillin (For Allergies Use Only) Rash Drug Allerg y Active exenatide Byetta 10 MCG Pen(NDC Code:[address]-80) Very sick Drug Allergy Active pioglitazone Actos(NDC Code:[address]-14) CHF Drug Allergy Active ENCOUNTERS from 1944 to 2020-07-04 Encounter Location Date Provider Diagnosis [address] [address] Jul, Morteza Lopez 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 Sexual [...] f or 30 day(s) Jun, Active Nystatin 366897 UNIT/GM 1 application to area under breast Externally Twice a day for 90 day(s) Active Depend Pant Extra Large 1 ea Extra Large. Weight-220.6 pounds, Height 62 inches DX: R32 Daily for 90 days Jan, Active TobraDex 0.3-0.1 % 1 drop into [...] day for 90 days November, Active Pen Molt 3/16" 31G X 5 MM BD ultra [...] Information RESULTS No Results REASON FOR VISIT test strips MEDICAL (GENERAL) HISTORY Type Description Date Medical [...] 2017 Hospitalization History Pancreatitis 12/12/2015 Hospitalization History [facility] ER- Cholecystitis-Chronic 2015 Hospitalization History [facility] Hospitalization History [facility] hospital-right lumbar radiculopa thy 02/26-03/02/2018 Hospitalization History [facility] Pneumonia, COPD 06/27-2018 Hospitalization History pneumonia, CHF 2019 Hospitalization History RIGHT LEG Goals Section No Information Health Concerns No Information MEDICAL EQUIPMENT No Information MENTAL STATUS No Information FUNCTIONAL STATUS No Information ASSESSMENTS Encounter Date Diagnosis Assessment Notes Treatment Notes Treatm ent Clinical Notes Jul, Controlled type 2 diabetes m ellitus with microalbuminuric diabetic nephropathy (ICD-10 - E11.21) PLAN OF TREATMENT Medication Medication Name Sig Start Date Stop Date PredniSONE 10 MG 3 tablets Orally Once a day for 5 days Jun, Doxycycline Hyclate 100 MG 1 capsule Orally Twice a day for 7 day(s) Jun, Clotrimazole 10 MG 1 willy Mouth/Throat Five t imes a day as needed for 90 day(s) Sep, Nystatin 117002 UNIT/GM 1 application to area under breast Externally Twice a day for 90 day(s) Blood Glucose Test Strip _ One Touch Ultra 2 In Vitro, DX: E11.21 Four times a day for 90 day(s) May, Next Appt Details Provider Name:Bronwyn Phillipsestuardo 2020-07-08 01 :45:00 PM, [address] [place], [address], Insurance Providers Payer Name Payer Address Payer Phone Insured Name Patient Relati onship to Insured Coverage Start Date Coverage End Date [employer] PLANS [address] [address] [facility] [phone] YESICA JACKSON [facility] MEDICAID [employer] [address] [facility] [id number] YESICA JACKSON self
--- OUTSIDE RECORDS SUMMARY | 2020-09-15 14:19 | CCD ---
Author Author [facility] Organization [facility] Address Unknown Phone Unavailable Care Team Providers Care Core Stacker Name Role Phone Bronwyn Segundo Unavailable PROBLEMS Type Condition ICD9-CM Code [id number] Code Onset Dates Condition S tatus SNOMED Code Notes Problem Chronic heart failure with preserved ejection fraction I50.32 Active 156252482 There was the suspicion that she had [...] in September 2019. Problem Hypercholesterolemia E78.00 Active 92965101 He r lipids are borderline controlled as of September 2019 on Lipitor 40 mg daily. Problem Gastroparesis K31.84 Active 606937114 Gastropa resis was identified on upper endoscopy in April 2012. There is little therapy to offer because Reglan which causes parkinsonism. She declines this. Her upholstery bundler is assisting with this. He has recommended high-dose MiraLax therapy to her, and advises chronic PPI therapy (Dr. Messer). Problem Gout, unspecified M10.9 Active 46939802 Uric acid controlled on medication (last uric acid level was 5.1 in 01/2019). Takes allopurinol since about April 2007. Problem Primary osteoarthritis of left hand M19.042 Acti ve 50097768 Try Voltaren gel. 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 She sees a food consultant regularly. Problem Dysthymic disorder F34.1 Active 03210532 On B uspar instead of imipramine), Zoloft and Xanax (dose reduced in August 2019). Sees a mental health provider monthly and her Zoloft was increased to 100 mg daily in October 2011. TSH was normal in 01/2019. Problem Sleep apnea, unspecified G47.30 Active 6378644 6 Had sleep study in Summer 2012. She has been prescribed BiPAP but does not tolerate it. Her hard rock miner blasting is aware. Problem Hypothyroidism, unspecified E03.9 Active 0203 0008 Her current thyroid replacement dose is 175 mcg daily, skipping 1 dose a week. Her most recent TSH was 1.38 in 01/2019. Problem Vitamin D deficiency, unspecified E55.9 Active 40543771 Discovered 12/07. Last Vitamin D level was greater than 100 in August 2017. I stopped her weekly Drisdol and placed her on calcitriol because of an elevated PTH then. A follow-up vitamin D level in September 2018 was 37. 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 She sees an eye doctor regularly and [...] kidney disease, stage 3 (moderate) N18.3 Active 325329637 Baseline GFR has been declining over the [...] Primary osteoarthritis, right hand M19.041 Activ e 041832247 Problem B12 deficiency E53.8 Active 812714462 A yo leggett low vitamin B12 level of 285 was identified when she was hospitalized in late January 2018. She was started on parenteral therapy at discharge but I switched her to oral therapy (this is actually standard of care) in March 2018. Her vitamin B-12 level was 1800+ in January 2019. Problem Right lumbar radiculopathy M54.16 Active 73959 8329 Has been evaluated by orthopedics and had [...] problems. Problem Peripheral vascular disease I73.9 Active 1389 87902 She had a vascular procedure on her right leg in August 2019 and will be undergoing a left leg procedure in the future. Problem Gastro-esophageal reflux disease without esophagitis K21.9 Active 461396888 On omeprazole 40 mg twice daily. The dos e was increased by upholstery bundler from once daily apparently in early 2017. Her last EGD was October 2017 and she underwent esophageal dilation despite fairly unremarkable findings. Problem COPD with exacerbation J44.1 Active 459410275 Problem Esophageal obstruction K22.2 Active 56837899 She has had symptoms of an esophageal stricture in that she choked easily and sometimes vomited after meals. Upper endoscopy with dilation was done March 18, 2012 with improvement. PPI chronically advised by upholstery bundler in late 2011 (Dr. Messer). She was [...] reflex. She may need follow-up with her upholstery bundler. Problem Chronic obstructive pulmonary disease, unspecified J44.9 Active 02735773 Her symptoms are generally controlled at present. Her hard rock miner blasting had her on Tudorza and this was stopped due to a dry mouth, although more likely this is from imipramine. No change in medications needed. She sees a hard rock miner blasting, most recently in every 2018. In May 2018 her FEV1 was 1.37 L with a ratio of 83%, consistent with restrictive physiology. She is on Advair, Incruse Ellipta and when necessary albuterol. She probably has a component of cor pulmonale. She is on Lasix, currently apparently 40 mg twice daily. Problem Pseudogout M11.20 Active 321077839 She had rig ht knee arthropathy during her hospital stay in January-March 2018, and calcium pyrophosphate crystals were identified on aspiration. Because of ongoing discomfort, she had her right knee injected with Kenalog by [place] 03/07/2018, and she has had 3 Euflexxa injections in Summer 2018. Problem Sacroiliac joint dysfunction M53.3 Active 202 571692 Problem Sacroiliac inflammation M46.1 Active 06040918 7 Problem Sacroiliitis, not elsewhere classified M46.1 A ctive 62229407 ALLERGIES Allergen (clinical drug ingredient) Drug/Non Drug Allergy do cumented on EMR Reaction Allergy Type Onset Date Status Sulfa (for allergy use only) Itch Drug Allergy Active tramadol Tramadol(NDC Code:[address]-01) Itch Drug Allergy Active Penicillin (For Allergies Use Only) Rash Drug Allerg y Active exenatide Byetta 10 MCG Pen(ND Code:[address]-08) Very sick Drug Allergy Active pioglitazone Actos(NDC Code:[address]-22) CHF Drug Allergy Active ENCOUNTERS from 1944 to 2020-07-30 Encounter Location Date Provider Diagnosis [facility] [address] [place] [id number] Jul, Bronwyn Segundo IMMUNIZATIONS Vaccine Route Administration Date Status Influenza [...] Education Language: Question Answer Notes Languages spoken: Khmer Judaism: Question Answer Notes Judaism No shinto beliefs that would impact health [...] f or 30 day(s) Jun, Active Nystatin 456647 UNIT/GM 1 application to area under breast [...] day for 90 days November, Active Pen Clarissa 3/16" 31G X 5 MM BD ultra [...] Information RESULTS No Results REASON FOR VISIT Referral to Neurosurgery MEDICAL (GENERAL) HISTORY Type Description Date Medical [...] 11 Surgical History tubal ligation in the s 06/22/1972 Surgical History Left knee replaced 2000? [...] 2017 Hospitalization History Pancreatitis 12/12/2015 Hospitalization History [facility] ER- Cholecystitis-Chronic 2015 Hospitalization History [facility] [place] Hospitalization History [facility] hospital-right lumbar radiculopa thy 02/26-03/02/2018 Hospitalization History [facility] Pneumonia, COPD 06/27-2018 Hospitalization History [...] a day for 7 day(s) Jun, Nystatin 906173 UNIT/GM 1 application to area under breast [...] Insured Coverage Start Date Coverage End Date [employer] PLANS [address] [address] [facility] [phone] [phone] YESICA JACKSON self MEDICAID [employer] [address] [facility] [id number] YESICA JACKSON self
--- OUTSIDE RECORDS SUMMARY | 2020-09-15 14:20 | CCD ---
Author Author [facility] Organization [facility] Address Unknown Phone Unavailable Care Team Providers Care Valet Service Attendant Name Role Phone Sharlene Chen Unavailable PROBLEMS Type Condition ICD9-CM Code [id number] Code Onset Dates Condition S tatus SNOMED Code Notes Problem Chronic heart failure with preserved ejection fraction I50.32 Active 012705680 There was the suspicion that she had [...] in September 2019. Problem Hypercholesterolemia E78.00 Active 68784429 He r lipids are borderline controlled as of September 2019 on Lipitor 40 mg daily. Problem Gastroparesis K31.84 Active 672817732 Gastropa resis was identified on upper endoscopy in April 2012. There is little therapy to offer because Reglan which causes parkinsonism. She declines this. Her sweatband cutting machine operator is assisting with this. He has recommended high-dose MiraLax therapy to her, and advises chronic PPI therapy (Dr. Messer). Problem Gout, unspecified M10.9 Active 66275356 Uric acid controlled on medication (last uric acid level was 5.1 in 01/2019). Takes allopurinol since about April 2007. Problem Primary osteoarthritis of left hand M19.042 Acti ve 88119005 Try Voltaren gel. 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 She sees a practicing urologist regularly. Problem Dysthymic disorder F34.1 Active 96715597 On B uspar instead of imipramine), Zoloft and Xanax (dose reduced in August 2019). Sees a mental health provider monthly and her Zoloft was increased to 100 mg daily in October 2011. TSH was normal in 01/2019. Problem Sleep apnea, unspecified G47.30 Active 9923392 6 Had sleep study in Summer 2012. She has been prescribed BiPAP but does not tolerate it. Her brilliandeer looper is aware. Problem Hypothyroidism, unspecified E03.9 Active 7923 0008 Her current thyroid replacement dose is 175 mcg daily, skipping 1 dose a week. Her most recent TSH was 1.38 in 01/2019. Problem Vitamin D deficiency, unspecified E55.9 Active 23146631 Discovered 12/07. Last Vitamin D level was greater than 100 in August 2017. I stopped her weekly Drisdol and placed her on calcitriol because of an elevated PTH then. A follow-up vitamin D level in September 2018 was 37. 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 She sees an eye doctor regularly and [...] kidney disease, stage 3 (moderate) N18.3 Active 392558233 Baseline GFR has been declining over the [...] Primary osteoarthritis, right hand M19.041 Activ e 393552826 Problem B12 deficiency E53.8 Active 503041998 A yo leggett low vitamin B12 level of 285 was identified when she was hospitalized in late January 2018. She was started on parenteral therapy at discharge but I switched her to oral therapy (this is actually standard of care) in March 2018. Her vitamin B-12 level was 1800+ in January 2019. Problem Right lumbar radiculopathy M54.16 Active 40862 1057 Has been evaluated by orthopedics and had [...] problems. Problem Peripheral vascular disease I73.9 Active 8823 29389 She had a vascular procedure on her right leg in August 2019 and will be undergoing a left leg procedure in the future. Problem Gastro-esophageal reflux disease without esophagitis K21.9 Active 080114055 On omeprazole 40 mg twice daily. The dos e was increased by sweatband cutting machine operator from once daily apparently in early 2017. Her last EGD was October 2017 and she underwent esophageal dilation despite fairly unremarkable findings. Problem COPD with exacerbation J44.1 Active 478943141 Problem Esophageal obstruction K22.2 Active 36715905 She has had symptoms of an esophageal stricture in that she choked easily and sometimes vomited after meals. Upper endoscopy with dilation was done March 18, 2012 with improvement. PPI chronically advised by sweatband cutting machine operator in late 2011 (Dr. Messer). She was [...] reflex. She may need follow-up with her sweatband cutting machine operator. Problem Chronic obstructive pulmonary disease, unspecified J44.9 Active 56198596 Her symptoms are generally controlled at present. Her brilliandeer looper had her on Tudorza and this was stopped due to a dry mouth, although more likely this is from imipramine. No change in medications needed. She sees a brilliandeer looper, most recently in every 2018. In May 2018 her FEV1 was 1.37 L with a ratio of 83%, consistent with restrictive physiology. She is on Advair, Incruse Ellipta and when necessary albuterol. She probably has a component of cor pulmonale. She is on Lasix, currently apparently 40 mg twice daily. Problem Pseudogout M11.20 Active 910246626 She had rig ht knee arthropathy during her hospital stay in January-March 2018, and calcium pyrophosphate crystals were identified on aspiration. Because of ongoing discomfort, she had her right knee injected with Kenalog by [place] 03/07/2018, and she has had 3 Euflexxa injections in Summer 2018. Problem Sacroiliac joint dysfunction M53.3 Active 202 991731 Problem Sacroiliac inflammation M46.1 Active 83717670 7 Problem Sacroiliitis, not elsewhere classified M46.1 A ctive 76410316 ALLERGIES Allergen (clinical drug ingredient) Drug/Non Drug Allergy do cumented on EMR Reaction Allergy Type Onset Date Status Sulfa (for allergy use only) Itch Drug Allergy Active tramadol Tramadol(NDC Code:[address]-17) Itch Drug Allergy Active Penicillin (For Allergies Use Only) Rash Drug Allerg y Active exenatide Byetta 10 MCG Pen(NDC Code:[address]-26) Very sick Drug Allergy Active pioglitazone Actos(NDC Code:[address]-23) CHF Drug Allergy Active ENCOUNTERS from 1944 to 2020-06-18 Encounter Location Date Provider Diagnosis [address] [address] Jun, Sharlene Chen IMMUNIZATIONS Vaccine Route Administration Date Status Influenza [...] Education Language: Question Answer Notes Languages spoken: Portuguese Druze: Question Answer Notes Druze No restoration beliefs that would impact health care. Sexual [...] m54.16 for 2000 days Sep, Active Nystatin 615262 UNIT/GM 1 application to area under breast [...] Wheeze for 90 day(s) Aug, Active Pen De Berry 10/15" 31G X 5 MM BD ultra [...] Information RESULTS No Results REASON FOR VISIT folic acid MEDICAL (GENERAL) HISTORY Type Description [...] 2017 Hospitalization History Pancreatitis 12/12/2015 Hospitalization History [facility] ER- Cholecystitis-Chronic 2015 Hospitalization History [facility] [place] Hospitalization History [facility] hospital-right lumbar radiculopa thy 02/26-03/02/2018 Hospitalization History [facility] Pneumonia, COPD 06/27-2018 Hospitalization History pneumonia, [...] Name:Bronwyn Segundo, 2020-07-08 01 :45:00 PM, [address] [place], [address], Insurance Providers Payer Name Payer Address Payer Phone Insured Name Patient Relati onship to Insured Coverage Start Date Coverage End Date [facility] [employer] [address] [address] [facility] [phone] YESICA JACKSON self MEDICAID [facility] [address] [facility] [id number] YESICA JACKSON self
--- OUTSIDE RECORDS SUMMARY | 2020-09-15 14:21 | CCD ---
Author Author [facility] Organization [facility] Address Unknown Phone Unavailable Care Team Providers Care Relief Pharmacist Name Role Phone MCELHERAN, ALEX PA Unavailable Unavailable MCELHERAN, ALEX PA Unavailable Unavailable MCELHERAN, ALEX PA Unavailable Unavailable MCELHERAN, ALEX PA Unavailable Unavailable MCELHERAN, ALEX PA Unavailable Unavailable MCELHERAN, ALEX PA Unavailable Unavailable MCELHERAN, ALEX PA Unavailable Unavailable MCELHERAN, ALEX PA Unavailable Unavailable MCELHERAN, ALEX PA Unavailable Unavailable MCELHERAN, ALEX PA Unavailable Unavailable MCELHERAN, ALEX PA Unavailable Unavailable MCELHERAN, ALEX PA Unavailable Unavailable MCELHERAN, ALEX PA Unavailable Unavailable MCELHERAN, ALEX PA Unavailable Unavailable MCELHERAN, ALEX PA Unavailable Unavailable MCELHERAN, ALEX PA Unavailable Unavailable MCELHERAN, ALEX PA Unavailable Unavailable MCELAN, ALEX PA Unavailable Unavailable MCELHERAN, ALEX PA Unavailable Unavailable [facility] Unavailable Unavailable MCELHERAN, ALEX PA Unavailable Unavailable MCELHERAN, ALEX PA Unavailable Unavailable MCELHERAN, ALEX PA Unavailable Unavailable MCELHERAN, ALEX PA Unavailable Unavailable MCELHERAN, ALEX PA Unavailable Unavailable MCELHERAN, ALEX PA Unavailable Unavailable MCELHERAN, ALEX PA Unavailable Unavailable MCELHERAN, ALEX PA Unavailable Unavailable MarksRamsey Kalpana RPA Unavailable Unavailable Marks, L Kalpana RPA Unavailable Unavailable Marks, L Kalpana RPA Unavailable Unavailable Marks, L Kalpana RPA Unavailable Unavailable Marks, L Kalpana RPA Unavailable Unavailable Marks, L Kalpana RPA Unavailable Unavailable Marks, L Kalpana RPA Unavailable Unavailable Marks, L Kalpana RPA Unavailable Unavailable Marks, L Kalpana RPA Unavailable Unavailable Marks, L Kalpana RPA Unavailable Unavailable Marks, L Kalpana RPA Unavailable Unavailable Marks, L Kalpana RPA Unavailable Unavailable Marks, L Kalpana RPA Unavailable Unavailable Marks, L Kalpana RPA Unavailable Unavailable Marks, L Klapana RPA Unavailable Unavailable Marks, L Kalpana RPA Unavailable Unavailable Marks, L Kalpana RPA Unavailable Unavailable Marks, L Kalpana RPA Unavailable Unavailable Marks, L Kalpana RPA Unavailable Unavailable Marks, L Kalpana RPA Unavailable Unavailable Marks, L Kalpana RPA Unavailable Unavailable Marks, L Kalpana RPA Unavailable Unavailable Marks, L Kalpana RPA Unavailable Unavailable Marks, L Kalpana RPA Unavailable Unavailable Marks, L Kalpana RPA Unavailable Unavailable Marks, L Kalpana RPA Unavailable Unavailable Marks, L Kalpana RPA Unavailable Unavailable Marks, L Kalpana RPA Unavailable Unavailable Marks, L Kalpana RPA Unavailable Unavailable Marks, L Kalpana RPA Unavailable Unavailable Marks, L Kalpana RPA Unavailable Unavailable Marks, L Kalpana RPA Unavailable Unavailable Fish, Robbie Franklin MD Unavailable Unavailable Fish, Robbie Franklin MD Unavailable Unavailable Fish, Robbie Franklin MD Unavailable Unavailable Fish, Robbie Franklin MD Unavailable Unavailable Fish, Robbie Franklin MD Unavailable Unavailable Fish, Robbie Franklin MD Unavailable Unavailable Fish, Robbie Franklin MD Unavailable Unavailable Fish, Robbie Franklin MD Unavailable Unavailable Fish, Robbie Franklin MD Unavailable Unavailable Fish, Robbie Franklin MD Unavailable Unavailable Fish, Robbie Franklin MD Unavailable Unavailable Fish, Robbie Franklin MD Unavailable Unavailable Fish, Robbie Franklin MD Unavailable Unavailable Fish, Robbie Franklin MD Unavailable Unavailable Fish, Robbie Franklin MD Unavailable Unavailable Fish, Robbie Franklin MD Unavailable Unavailable Fish, Robbie Franklin MD Unavailable Unavailable Fish, Robbie Franklin MD Unavailable Unavailable Fish, Robbie Franklin MD Unavailable Unavailable Fish, Robbie Franklin MD Unavailable Unavailable Fish, Robbie Franklin MD Unavailable Unavailable Fish, Robbie Franklin MD Unavailable Unavailable Fish, Robbie Franklin MD Unavailable Unavailable Fish, Robbie Franklin MD Unavailable Unavailable Fish, Robbie Franklin MD Unavailable Unavailable Fish, Robbie Franklin MD Unavailable Unavailable Fish, Robbie Franklin MD Unavailable Unavailable Fish, Robbie Franklin MD Unavailable Unavailable Fish, Robbie Franklin MD Unavailable Unavailable Fish, Robbie Franklin MD Unavailable Unavailable Fish, B Rigoberto GODINEZ Unavailable Unavailable Fish, B Rigoberto GODINEZ Unavailable Unavailable Fish, B Rigoberto GODINEZ Unavailable Unavailable Fish, B Rigoberto GODINEZ Unavailable Unavailable Fish, B Rigoberto GODINEZ Unavailable Unavailable Fish, B Rigoberto GODINEZ Unavailable Unavailable Fish, B Rigoberto GODINEZ Unavailable Unavailable Fish, B Rigoberto GODINEZ Unavailable Unavailable Fish, B Rigoberto GODINEZ Unavailable Unavailable Fish, B Rigoberto GODINEZ Unavailable Unavailable Fish, B Rigoberto GODINEZ Unavailable Unavailable Fish, B Rigoberto GODINEZ Unavailable Unavailable Fish, B Rigoberto GODINEZ Unavailable Unavailable Fish, B Rigoberto GODINEZ Unavailable Unavailable Fish, B Rigoberto GODINEZ Unavailable Unavailable Fish, B Rigoberto GODINEZ Unavailable Unavailable Fish, B Rigoberto GODINEZ Unavailable Unavailable Fish, B Rigoberto GODINEZ Unavailable Unavailable Fish, B Rigoberto GODINEZ Unavailable Unavailable Fish, B Rigoberto GODINEZ Unavailable Unavailable Fish, B Rigoberto GODINEZ Unavailable Unavailable Fish, B Rigoberto GODINEZ Unavailable Unavailable Fish, B Rigoberto GODINEZ Unavailable Unavailable FRANCO, Ramsey LUNA MD Unavailable Unavailable FRANCO, Ramsey LUNA MD Unavailable Unavailable FRANCO, Ramsey LUNA MD Unavailable Unavailable FRANCO, L JEREMY GODINEZ Unavailable Unavailable FRANCO, L JEREMY GODINEZ Unavailable Unavailable FRANCO, Ramsey LUNA MD Unavailable Unavailable FRANCO, L JEREMY GODINEZ Unavailable Unavailable FRANCO, L JEREMY GODINEZ Unavailable Unavailable FRANCO, L JEREMY GODINEZ Unavailable Unavailable FRANCO, L JEREMY GODINEZ Unavailable Unavailable FRANCO, L JEREMY GODINEZ Unavailable Unavailable FRANCO, L JEREMY GODINEZ Unavailable Unavailable FRANCO, Ramsey LUNA MD Unavailable Unavailable FRANCO, Ramsey LUNA MD Unavailable Unavailable FRANCO, Ramsey LUNA MD Unavailable Unavailable FRANCO, L JEREMY GODINEZ Unavailable Unavailable FRANCO, Ramsey LUNA MD Unavailable Unavailable FRANCO, L JEREMY GODINEZ Unavailable Unavailable FRANCO, Ramsey LUNA MD Unavailable Unavailable FRANCO, Ramsey LUNA MD Unavailable Unavailable FRANCO, Ramsey LUNA MD Unavailable Unavailable FRANCO, Ramsey LUNA MD Unavailable Unavailable FRANCO, L JEREMY GODINEZ Unavailable Unavailable FRANCO, Ramsey LUNA MD Unavailable Unavailable FRANCO, Ramsey LUNA MD Unavailable Unavailable FRANCO, L JEREMY GODINEZ Unavailable Unavailable FRANCO, Ramsey LUNA MD Unavailable Unavailable FRANCO, Ramsey LUNA MD Unavailable Unavailable FRANCO, Ramsey LUNA MD Unavailable Unavailable FRANCO, Ramsey LUNA MD Unavailable Unavailable FRANCO, Ramsey LUNA MD Unavailable Unavailable FRANCO, Ramsey LUNA MD Unavailable Unavailable FRANCO, L JEREMY GODINEZ Unavailable Unavailable FRANCO, Ramsey LUNA MD Unavailable Unavailable FRANCO, L JEREMY MD Unavailable Unavailable FRANCO, Ramsey LUNA MD Unavailable Unavailable FRANCO, Ramsey LUNA MD Unavailable Unavailable FRANCO, Ramsey LUNA MD Unavailable Unavailable JOAN, Ramsey LUNA MD Unavailable Unavailable FRANCO, Ramsey LUNA MD Unavailable Unavailable JOAN, Ramsey LUNA MD Unavailable Unavailable JOAN, Ramsey LUNA MD Unavailable Unavailable FRANCO, Ramsey LUNA MD Unavailable Unavailable Fragoso, M Daryl PA Unavailable Unavailable Fragoso, M Daryl PA Unavailable Unavailable Fragoso, M Daryl PA Unavailable Unavailable Fragoso, M Daryl PA Unavailable Unavailable Fragoso, M Daryl PA Unavailable Unavailable Fragoso, M Daryl PA Unavailable Unavailable Fragoso, M Daryl PA Unavailable Unavailable Fragoso, M Daryl PA Unavailable Unavailable Fragoso, M Daryl PA Unavailable Unavailable Fragoso, M Daryl PA Unavailable Unavailable Fragoso, M Daryl PA Unavailable Unavailable Fragoso, M Daryl PA Unavailable Unavailable Fragoso, M Daryl PA Unavailable Unavailable Fragoso, M Daryl PA Unavailable Unavailable Fragoso, M Daryl PA Unavailable Unavailable Fragoso, M Daryl PA Unavailable Unavailable Fragoso, M Daryl PA Unavailable Unavailable Fragoso, M Daryl PA Unavailable Unavailable Fragoso, M Daryl PA Unavailable Unavailable Fragoso, M Daryl PA Unavailable Unavailable Fragoso, M Daryl PA Unavailable Unavailable Fragoso, M Daryl PA Unavailable Unavailable Fragoso, M Daryl PA Unavailable Unavailable Fragoso, M Daryl PA Unavailable Unavailable Fragoso, M Daryl PA Unavailable Unavailable Fragoso, M Daryl PA Unavailable Unavailable Fragoso, M Daryl PA Unavailable Unavailable Fragoso, M Daryl PA Unavailable Unavailable Fragoso, M Daryl PA Unavailable Unavailable Fragoso, M Daryl PA Unavailable Unavailable Fragoso, M Daryl PA Unavailable Unavailable Fragoso, M Daryl PA Unavailable Unavailable Fragoso, M Daryl PA Unavailable Unavailable Fragoso, M Daryl PA Unavailable Unavailable Fragoso, M Daryl PA Unavailable Unavailable Fragoso, M Daryl PA Unavailable Unavailable Fragoso, M Daryl PA Unavailable Unavailable Fragoso, M Daryl PA Unavailable Unavailable Fragoso, M Daryl PA Unavailable Unavailable Fragoso, M Daryl PA Unavailable Unavailable Fragoso, M Daryl PA Unavailable Unavailable Fragoso, M Daryl PA Unavailable Unavailable Fragoso, M Daryl PA Unavailable Unavailable Fragoso, M Daryl PA Unavailable Unavailable Fragoso, M Daryl PA Unavailable Unavailable Fragoso, M Daryl PA Unavailable Unavailable Fragoso, M Daryl PA Unavailable Unavailable Servage, L Sharlene RV SERVICER Unavailable Unavailable Servage, L Sharlene RV SERVICER Unavailable Unavailable Servage, L Sharlene RV SERVICER Unavailable Unavailable Servage, L Sharlene RV SERVICER Unavailable Unavailable Servage, L Sharlene RV SERVICER Unavailable Unavailable Servage, L Sharlene RV SERVICER Unavailable Unavailable Servage, L Sharlene RV SERVICER Unavailable Unavailable Servage, L Sharlene RV SERVICER Unavailable Unavailable Servage, L Sharlene RV SERVICER Unavailable Unavailable Servage, L Sharlene RV SERVICER Unavailable Unavailable Servage, L Sharlene RV SERVICER Unavailable Unavailable Servage, L Sharlene RV SERVICER Unavailable Unavailable Servage, L Sharlene RV SERVICER Unavailable Unavailable Servage, L Sharlene RV SERVICER Unavailable Unavailable Servage, L Sharlene RV SERVICER Unavailable Unavailable Servage, L Sharlene RV SERVICER Unavailable Unavailable Servage, L Sharlene RV SERVICER Unavailable Unavailable Servage, L Sharlene RV SERVICER Unavailable Unavailable Servage, L Sharlene RV SERVICER Unavailable Unavailable Servage, L Sharlene RV SERVICER Unavailable Unavailable Servage, L Sharlene RV SERVICER Unavailable Unavailable Servage, L Sharlene RV SERVICER Unavailable Unavailable Servage, L Sharlene RV SERVICER Unavailable Unavailable Servage, L Sharlene RV SERVICER Unavailable Unavailable Servage, L Sharlene RV SERVICER Unavailable Unavailable Servage, L Sharlene RV SERVICER Unavailable Unavailable Servage, L Sharlene RV SERVICER Unavailable Unavailable Servage, L Sharlene RV SERVICER Unavailable Unavailable Servage, L Sharlene RV SERVICER Unavailable Unavailable Servage, L Sharlene RV SERVICER Unavailable Unavailable Servage, L Sharlene RV SERVICER Unavailable Unavailable Servage, L Sharlene RV SERVICER Unavailable Unavailable Servage, L Sharlene RV SERVICER Unavailable Unavailable Servage, L Sharlene RV SERVICER Unavailable Unavailable Servage, L Sharlene RV SERVICER Unavailable Unavailable Servage, L Sharlene RV SERVICER Unavailable Unavailable Servage, L Sharlene RV SERVICER Unavailable Unavailable Servage, L Sharlene RV SERVICER Unavailable Unavailable Servage, L Sharlene RV SERVICER Unavailable Unavailable Servage, L Sharlene RV SERVICER Unavailable Unavailable Servage, L Sharlene RV SERVICER Unavailable Unavailable Servage, L Sharlene RV SERVICER Unavailable Unavailable Servage, L Sharlene RV SERVICER Unavailable Unavailable Servage, L Sharlene RV SERVICER Unavailable Unavailable Servage, L Sharlene RV SERVICER Unavailable Unavailable Servage, L Sharlene RV SERVICER Unavailable Unavailable Servage, L Sharlene RV SERVICER Unavailable Unavailable Servage, L Sharlene RV SERVICER Unavailable Unavailable Servage, L Sharlene RV SERVICER Unavailable Unavailable Servage, L Sharlene RV SERVICER Unavailable Unavailable Servage, L Sharlene RV SERVICER Unavailable Unavailable Servage, L Sharlene RV SERVICER Unavailable Unavailable Servage, L Sharlene RV SERVICER Unavailable Unavailable Servage, L Sharlene RV SERVICER Unavailable Unavailable Servage, L Sharlene RV SERVICER Unavailable Unavailable Servage, L Sharlene RV SERVICER Unavailable Unavailable Pepe, Laurie RV SERVICER Unavailable Unavailable Pepe, Laurie RV SERVICER Unavailable Unavailable Pepe, Laurie RV SERVICER Unavailable Unavailable Pepe, Laurie RV SERVICER Unavailable Unavailable Pepe, Laurie RV SERVICER Unavailable Unavailable Pepe, Laurie RV SERVICER Unavailable Unavailable Pepe, Laurie RV SERVICER Unavailable Unavailable Pepe, Laurie RV SERVICER Unavailable Unavailable Pepe, Laurie RV SERVICER Unavailable Unavailable Pepe, Laurie RV SERVICER Unavailable Unavailable Pepe, Laurie RV SERVICER Unavailable Unavailable MACQUEEN, SHOSHANA RV SERVICER Unavailable Unavailable MACQUEEN, SHOSHANA RV SERVICER Unavailable Unavailable MACQUEEN, SHOSHANA RV SERVICER Unavailable Unavailable MACQUEEN, SHOSHANA RV SERVICER Unavailable Unavailable MACQUEEN, SHOSHANA RV SERVICER Unavailable Unavailable MACQUEEN, SHOSHANA RV SERVICER Unavailable Unavailable MACQUEEN, SHOSHANA RV SERVICER Unavailable Unavailable MACQUEEN, SHOSHANA RV SERVICER Unavailable Unavailable MACQUEEN, SHOSHANA RV SERVICER Unavailable Unavailable MACQUEEN, SHOSHANA RV SERVICER Unavailable Unavailable MACQUEEN, SHOSHANA RV SERVICER Unavailable Unavailable Higinio Barron MD Unavailable Unavailable Higinio Barron MD Unavailable Unavailable Higinio Barron MD Unavailable Unavailable Higinio Barron MD Unavailable Unavailable Higinio Barron MD Unavailable Unavailable Higinio Barron MD Unavailable Unavailable Higinio Barron MD Unavailable Unavailable Higinio Barron MD Unavailable Unavailable Higinio Barron MD Unavailable Unavailable Higinio Barron MD Unavailable Unavailable Higinio Barron MD Unavailable Unavailable Higinio Barron MD Unavailable Unavailable Higinio Barron MD Unavailable Unavailable Higinio Barron MD Unavailable Unavailable Higinio Barron MD Unavailable Unavailable Higinio Barron MD Unavailable Unavailable Higinio Barron MD Unavailable Unavailable Higinio Barron MD Unavailable Unavailable Higinio Barron MD Unavailable Unavailable Higinio Barron MD Unavailable Unavailable Higinio Barron MD Unavailable Unavailable Higinio Barron MD Unavailable Unavailable Higinio Barron MD Unavailable Unavailable Higinio Barron MD Unavailable Unavailable Higinio Barron MD Unavailable Unavailable Higinio Barron MD Unavailable Unavailable Higinio Barron MD Unavailable Unavailable Higinio Barron MD Unavailable Unavailable Higinio Barron MD Unavailable Unavailable Higinio Barron MD Unavailable Unavailable Higinio Barron MD Unavailable Unavailable Higinio Barron MD Unavailable Unavailable Higinio Barron MD Unavailable Unavailable Higinio Barron MD Unavailable Unavailable Higinio Barron MD Unavailable Unavailable Higinio Barron MD Unavailable Unavailable Higinio Barron MD Unavailable Unavailable Higinio Barron MD Unavailable Unavailable Barron, Higinio Tk MD Unavailable Unavailable Barron, Higinio Tk MD Unavailable Unavailable Barron, Higinio Frey MD Unavailable Unavailable Barron, Higinio Frey MD Unavailable Unavailable Braron, Higinio Frey MD Unavailable Unavailable Barron, Higinio Frey MD Unavailable Unavailable Barron, Higinio Frey MD Unavailable Unavailable Barron, Higinio Frey MD Unavailable Unavailable Barron, Higinio Frey MD Unavailable Unavailable Barron, Higinio Frey MD Unavailable Unavailable Barron, Higinio Frey MD Unavailable Unavailable Barron, Higinio Frey MD Unavailable Unavailable Barron, Higinio Frey MD Unavailable Unavailable Re-disclosure Warning The records that you are about to access may contain information from federally-assisted alcohol or drug abuse programs. If such information is present, then the following federally mandated warning applies: This information has been disclosed to you from records protected by federal confidentiality rules (42 CFR part 2). The federal rules prohibit you from making any further disclosure of this information unless further disclosure is expressly permitted by the written consent of the person to whom it pertains or as otherwise permitted by 42 CFR part 2. A general authorization for the release of medical or other information is NOT sufficient for this purpose. The Federal rules restrict any use of the information to criminally investigate or prosecute any alcohol or drug abuse patient.The records that you are about to access may contain highly sensitive health information, the redisclosure of which is protected by Article 27-F of the [facility] Public Health law. If you continue you may have access to information: Regarding HIV / AIDS; Provided by facilities licensed or operated by the [facility] Office of Mental Health; or Provided by the [facility] Office for People With Developmental Disabilities. If such information is present, then the following [facility] mandated warning applies: This information has been disclosed to you from confidential records which are protected by state law. State law prohibits you from making any further disclosure of this information without the specific written consent of the person to whom it pertains, or as otherwise permitted by law. Any unauthorized further disclosure in violation of state law may result in a fine or intermediate sentence or both. A general authorization for the release of medical or other information is NOT sufficient authorization for further disc losure. Allergies and Adverse Reactions Type Description Substance Reaction Status Data Source(s ) Propensity to adverse reactions to substance penicillin v po tassium Penicillin V Potassium 250 MG [facility]t [facility] Propensity to adverse reactions to substance Byetta (exenati de) 60 ACTUAT exenatide 0.005 MG/ACTUAT Pen Injector [Byetta] Active [facility] ([facility]) Drug allergy Actos pioglitazone CHF Active eCW1 ([facility]) Drug allergy Tramadol Tramadol Itch Active eCW1 ([facility]) Family History Family Member Name Family Member Gender Family Member Status Date o f Status Description Data Source(s) Unknown Male Problem [facility] ([facility]) Unknown Unknown Problem [facility] ([facility]) Unknown Unknown Problem [facility] ([facility]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) Unknown Female Problem [facility] ([facility]) Unknown Female Problem [facility] ([facility]) Unknown Unknown Encounters Encounter Providers Location Date Indications Data Source(s ) Office Visit Attender: Laurie flaherty 09/05/2020 02:15:00 PM EST [facility] ([facility] [place] [address] [facility] [facility] [address] [place] [address] 09/02/2020 12:00:00 AM EST eCW1 ([facility]) [place] [address] [facility] [facility] [place] [address] 08/18/2020 12:00:00 AM EST eCW1 ([facility]) [place] [address] [facility] [place] [address] 07/30/2020 12:00:00 AM EST eCW1 ([facility]) Unknown [address] [facility] [place] [address] 07/30/2020 12:00:00 AM EST eCW1 ([facility]) Outpatient Attender: SHOSHANA WORTHY NP [facility] 07/24/2020 02:00:00 AM EST - 07/24/2020 02:00:00 AM EST [facility] ([facility]) Attender: SHOSHANA WORTHY NP 07/24/2020 12:00:00 AM EST [facility] ([facility]) Outpatient Attender: Daryl NOEL 07/22 10:24:00 AM EST - 07/22/2020 10:24:00 AM EST [facility] Unknown [address] [facility] [place] [address] 07/03/2020 12:00:00 AM EST eCW1 ([facility]) 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 Office Visit, Est Pt., Level 3 PC [address] [place] [address] 06/18/2020 12:00:00 AM EST eCW1 ([facility]) Unknown [address] [facility] [address] 06/18/2020 12:00:00 AM EST eCW1 ([facility]) Unknown [address] [facility] [address] 06/18/2020 12:00:00 AM EST eCW1 ([facility]) Unknown [address] [facility] [place] [address] 06/03/2020 12:00:00 AM EST eCW1 ([facility]) Outpatient Attender: SHOSHANA WORTHY NP [facility] 05/15/2020 02:00:00 AM EDT - 05/15/2020 02:00:00 AM EDT [facility] Attender: SHOSHANA WORTHY NP 05/15/2020 12:00:00 AM EDT [facility] ([facility]) Outpatient [address] [facility] [address] 05/08/2020 12:00:00 AM EDT eCW1 ([facility]) Unknown [address] [facility] [address] 05/06/2020 12:00:00 AM EDT eCW1 ([facility]) [facility] [address] [facility] [address] 03/20/2020 12:00:00 AM EDT eCW1 ([facility]) Unknown [address] [facility] [place] [address] 02/21/2020 12:00:00 AM EDT eCW1 ([facility]) Unknown [address] [facility] [place] [address] 02/19/2020 12:00:00 AM EDT eCW1 ([facility]) Unknown [address] [facility] [place] [address] 02/15/2020 12:00:00 AM EDT eCW1 ([facility]) Unknown [address] [facility] [place] [address] 01/23/2020 12:00:00 AM EDT eCW1 ([facility]) [facility] [address] [place] [address] 01/23/2020 12:00:00 AM EDT eCW1 ([facility]) Unknown [address] [facility] [place] [address] 01/19/2020 12:00:00 AM EDT eCW1 ([facility]) Outpatient Attender: Rigoberto Vo MD Physical Therapy 01/17/2020 1 1:15:00 AM EDT [facility] ([facility]) Outpatient Attender: SHOSHANA WORTHY NP [facility] 01/11/2020 03:00:00 AM EDT - 01/11/2020 03:00:00 AM EDT [facility] ([facility]) Attender: SHOSHANA WORTHY NP 01/11/2020 12:00:00 AM EDT [facility] ([facility]) Outpatient [address] [facility] [place] [address] 01/08/2020 12:00:00 AM EDT eCW1 ([facility]) Unknown [address] [facility] [place] [address] 01/03/2020 12:00:00 AM EDT eCW1 [facility] [facility]) Outpatient Attender: Tk Rodas/Hubert/James/Jyoti leyva 12/28/2019 01:15:00 PM EDT MEDENT ([facility]) [address] [phone] 12/26/2019 12:00:00 AM EDT eCW1 ([facility]) [address] [address] 12/26/2019 12:00:00 AM EDT eCW1 ([facility]) [facility] [address] [place] [phone] 12/22/2019 12:00:00 AM EDT eCW1 ([facility]) [facility] [address] [place] [phone] 12/22/2019 12:00:00 AM EDT eCW1 ([facility]) [address] [address] 12/17/2019 12:00:00 AM EDT eCW1 ([facility]) [facility] [address] [place] [phone] 12/15/2019 12:00:00 AM EDT eCW1 ([facility]) [address] [address] 12/11/2019 12:00:00 AM EDT eCW1 ([facility]) [address] [place] [address] 12/04/2019 12:00:00 AM EDT eCW1 ([facility]) Outpatient Attender: SHOSHANA WORTHY NP [facility] 11/15/2019 01:00:00 AM EDT - 11/15/2019 01:00:00 AM EDT [facility] ([facility]) [address] [phone] 11/15/2019 12:00:00 AM EDT eCW1 ([facility]) Attender: SHOSHANA WORTHY NP 11/15/2019 12:00:00 AM EDT [facility] ([facility]) [address] [phone] 11/10/2019 12:00:00 AM EDT eCW1 ([facility]) [address] [phone] 11/06/2019 12:00:00 AM EDT eCW1 ([facility]) Outpatient Attender: SHOSHANA WORTHY NP [facility] 10/05/2019 03:00:00 AM EST - 10/05/2019 03:00:00 AM EST [facility] ([facility]) Attender: SHOSHANA WORTHY NP 10/05/2019 12:00:00 AM EST [facility] ([facility]) Outpatient Attender: ALEX NOEL Physical Therapy 10/03/2019 12:45:00 PM EST MEDENT ([facility]) [facility] [address] [place] [phone] 09/29/2019 12:00:00 AM EST eCW1 ([facility]) Outpatient Referrer: Sharlene Chen NP 09/28/2019 12:10:00 PM EST [facility] Outpatient Attender: Kalpana Rodas/Hubert/James/Jyoti leyva 09/27/2019 08:15:00 AM EST MEDENT ([facility]) [address] [phone] 09/25/2019 12:00:00 AM EST eCW1 ([facility]) [address] [phone] 09/19/2019 12:00:00 AM EST eCW1 ([facility]) [facility] [address] [place] [phone] 09/12/2019 12:00:00 AM EST eCW1 ([facility]) Outpatient Attender: Rigoberto Vo MD Physical Therapy 09/06/2019 0 9:45:00 AM EST [facility] ([facility] ) [address] [address] 08/28/2019 12:00:00 AM EST eCW1 ([facility]) Outpatient Attender: Kalpana Marks RPA Adrianna/Milroy/James/R eindl 08/22/2019 08:15:00 AM EST MEDENT ([facility]) Outpatient Referrer: Sharlene Chen NP 08/18/2019 06:07:[address] [facility] Outpatient Attender: SHOSHANA WORTHY NP [facility] 08/10/2019 02:30:00 AM EST - 08/10/2019 02:30:00 AM EST [facility] ([facility]) Attender: SHOSHANA WORTHY NP 08/10/2019 12:00:00 AM EST [facility] ([facility]) Outpatient Attender: Kalpana Marks RPA Adrianna/Milroy/James/R eindl 07/19/2019 09:00:00 AM EST MEDENT ([facility]) Functional Status Immunizations Vaccine Date Status Description Data Source(s) COVID-19 VACCINE, [id number], LNP-S (MODERNA)/PF 08/27/2020 1 2:00:00 AM EST completed [facility] influenza, recombinant, quadrIvalent,injectable, prese rvative free 06/06/2020 04:36:00 PM EST completed eCW1 ([facility]) influenza, recombinant, quadrIvalent,injectable, prese rvative free 06/06/2020 04:36:00 PM EST completed eCW1 ([facility]) influenza, recombinant, quadrIvalent,injectable, prese rvative free 06/06/2020 04:36:00 PM EST completed eCW1 ([facility]) influenza, recombinant, quadrIvalent,injectable, prese rvative free 06/06/2020 04:36:00 PM EST completed eCW1 ([facility]) influenza, recombinant, quadrIvalent,injectable, prese rvative free 06/06/2020 04:36:00 PM EST completed eCW1 ([facility]) influenza, recombinant, quadrIvalent,injectable, prese rvative free 06/06/2020 04:36:00 PM EST completed eCW1 ([facility]) influenza, recombinant, quadrIvalent,injectable, prese rvative free 06/06/2020 04:36:00 PM EST completed eCW1 ([facility]) influenza, recombinant, quadrIvalent,injectable, prese rvative free 06/06/2020 04:36:00 PM EST completed eCW1 ([facility]) influenza, recombinant, quadrIvalent,injectable, prese rvative free 06/06/2020 04:36:00 PM EST completed eCW1 ([facility]) Medications Medication Brand Name Start Date Product Form Dose Route Admi nistrative Instructions Pharmacy Instructions Status Indications Reaction Description Data Source(s) Prednisone 20 MG Oral Tablet Prednisone 09/05/2020 12:00:00 AM EST active MEDENT ([facility]) Doxycycline Monohydrate 100 MG Oral Tablet Doxycycline Monoh ydrate 09/05/2020 12:00:00 AM EST ORAL active M EDENT ([facility]) 100 mg 09/05/2020 12:00:00 AM EST tablet 20 TAKE ONE TABLET BY MOUTH TWICE A DAY FOR 10 DAYS TAKE ONE TABLET BY MOUTH TWICE A DAY FOR 10 DAYS SOLD: 09/05/2020 [facility] 20 mg 09/05/2020 12:00:00 AM EST tablet 10 TAKE ONE TABLET BY MOUTH TWICE A DAY FOR 5 DAYS TAKE ONE TABLET BY MOUTH TWICE A DAY FOR 5 DAYS SOLD: 2020 [facility] 1 mg 09/04/2020 12:00:00 AM EST tablet 90 TAKE ONE TABLET BY MOUTH EVERY DAY TAKE ONE TABLET BY MOUTH EVERY DAY SOLD: 09/04/2020 [facility] atorvastatin 40 MG Oral Tablet ATORVASTATIN CALCIUM 2020 1 2:00:00 AM EST tablet 90 TAKE ONE TABLET BY MOUTH EVERY D AY TAKE ONE TABLET BY MOUTH EVERY DAY SOLD: 09/04/2020 [facility] 300 mg 09/02/2020 12:00:00 AM EST tablet 90 TAKE ONE TABLET BY MOUTH EVERY DAY TAKE ONE TABLET BY MOUTH EVERY DAY SOLD: 2020 [facility] 100 mg 08/05/2020 12:00:00 AM EST tablet 45 TAKE 1 1/2 TABLETS BY MOUTH ONCE DAILY DIRECTED TAKE 1 1/2 TABLETS BY MOUTH ONCE DAILY DIRECTED KANG [facility] 100 mg 08/05/2020 12:00:00 AM EST tablet 45 TAKE 1 1/2 TABLETS BY MOUTH ONCE DAILY DIRECTED TAKE 1 1/2 TABLETS BY MOUTH ONCE DAILY DIRECTED KANG [facility] Calcitriol 0.0005 MG Oral Capsule 0.5 mcg CALCITRIOL 2019 12:00:00 AM EST capsule 90 TAKE ONE CAPSULE BY MOUTH EVERY DAY TAKE ONE CAPSULE BY MOUTH EVERY DAY SOLD: 08/03/2020 [facility] BLOOD SUGAR DIAGNOSTIC 07/04/2020 12:00:00 AM EST strip 350 TEST FOUR TIMES A DAY TEST FOUR TIMES A DAY SOLD: 07/07/2020 [facility] 100,000 unit/gram 06/26/2020 12:00:00 AM EST powder 180 APPLY TO AFFECTED AREA(S) UNDER BREAST TWO TIMES A DAY APPLY TO AFFECTED AREA(S) UNDER BREAST T WO TIMES A DAY SOLD: 06/29/2020 [facility] buspirone hydrochloride 15 MG Oral Tablet BUSPIRONE HCL 06/26/2020 12:00:00 AM EST tablet 60 TAKE ONE TABLET BY MOUTH TWI CE A DAY TAKE ONE TABLET BY MOUTH TWICE A DAY SOLD: 06/29/2020 [facility] buspirone hydrochloride 15 MG Oral Tablet BUSPIRONE HCL 06/26/2020 12:00:00 AM EST tablet 60 TAKE ONE TABLET BY MOUTH TWI CE A DAY TAKE ONE TABLET BY MOUTH TWICE A DAY SOLD: 08/03/2020 [facility] buspirone hydrochloride 15 MG Oral Tablet BUSPIRONE HCL 06/26/2020 12:00:00 AM EST tablet 60 TAKE ONE TABLET BY MOUTH TWI CE A DAY TAKE ONE TABLET BY MOUTH TWICE A DAY SOLD: 08/28/2020 [facility] 10 mg 06/26/2020 12:00:00 AM EST willy 450 DISSOLVE 1 WILLY 5 TIMES DAILY NEEDED DISSOLVE 1 WILLY 5 TIMES DAILY NEEDED SOLD: 06/29/2020 [facility] doxycycline hyclate 100 MG Oral Capsule Doxycycline Hy clate 100 MG Doxycycline Hyclate 100 MG 06/18/2020 12:00:00 AM EST 1.0 {capsule} active Doxycycline Hyclate 100 MG eCW1 ([facility]) doxycycline hyclate 100 MG Oral Capsule Doxycycline Hy clate 100 MG Doxycycline Hyclate 100 MG 06/18/2020 12:00:00 AM EST 1.0 {capsule} active Doxycycline Hyclate 100 MG eCW1 ([facility]) doxycycline hyclate 100 MG Oral Capsule Doxycycline Hy clate 100 MG Doxycycline Hyclate 100 MG 06/18/2020 12:00:00 AM EST 1.0 {capsule} active Doxycycline Hyclate 100 MG eCW1 ([facility]) doxycycline hyclate 100 MG Oral Capsule DOXYCYCLINE HYCLATE 06/18/2020 12:00:00 AM EST capsule 14 TAKE ONE CAPSULE BY MOUTH TW ICE A DAY FOR 7 DAYS TAKE ONE CAPSULE BY MOUTH TWICE A DAY FOR 7 DAYS SOLD: 06/18/2020 [facility] 10 mg 06/18/2020 12:00:00 AM EST tablet 15 TAKE THREE TABLETS BY MOUTH EVERY DAY FOR 5 DAYS TAKE THREE TABLETS BY MOUTH EVERY DAY FOR 5 DAYS SOLD: 06/18/2020 [facility] Prednisone 10 MG Oral Tablet PredniSONE 10 MG PredniSONE 10 MG 06/18/2020 12:00:00 AM EST 3.0 {tablets} active P redniSONE 10 MG eCW1 ([facility]) Prednisone 10 MG Oral Tablet PredniSONE 10 MG PredniSONE 10 MG 06/18/2020 12:00:00 AM EST 3.0 {tablets} active P redniSONE 10 MG eCW1 ([facility]) Prednisone 10 MG Oral Tablet PredniSONE 10 MG PredniSONE 10 MG 06/18/2020 12:00:00 AM EST 3.0 {tablets} active P redniSONE 10 MG eCW1 ([facility]) Prednisone 10 MG Oral Tablet PredniSONE 10 MG PredniSONE 10 MG 06/18/2020 12:00:00 AM EST 3.0 {tablets} active P redniSONE 10 MG eCW1 ([facility]) Prednisone 10 MG Oral Tablet PredniSONE 10 MG PredniSONE 10 MG 06/18/2020 12:00:00 AM EST 3.0 {tablets} active P redniSONE 10 MG eCW1 ([facility]) doxycycline hyclate 100 MG Oral Capsule Doxycycline Hy clate 100 MG Doxycycline Hyclate 100 MG 06/18/2020 12:00:00 AM EST 1.0 {capsule} active Doxycycline Hyclate 100 MG eCW1 ([facility]) Prednisone 10 MG Oral Tablet PredniSONE 10 MG PredniSONE 10 MG 06/18/2020 12:00:00 AM EST 3.0 {tablets} active P redniSONE 10 MG eCW1 ([facility]) doxycycline hyclate 100 MG Oral Capsule Doxycycline Hy clate 100 MG Doxycycline Hyclate 100 MG 06/18/2020 12:00:00 AM EST 1.0 {capsule} active Doxycycline Hyclate 100 MG eCW1 ([facility]) 1 mg 06/18/2020 12:00:00 AM EST tablet 90 TAKE ONE TABLET BY MOUTH EVERY DAY TAKE ONE TABLET BY MOUTH EVERY DAY SOLD: 06/19/2020 [facility] Prednisone 10 MG Oral Tablet PredniSONE 10 MG PredniSONE 10 MG 06/18/2020 12:00:00 AM EST 3.0 {tablets} active P redniSONE 10 MG eCW1 ([facility]) Prednisone 10 MG Oral Tablet PredniSONE 10 MG PredniSONE 10 MG 06/18/2020 12:00:00 AM EST 3.0 {tablets} active P redniSONE 10 MG eCW1 ([facility]) doxycycline hyclate 100 MG Oral Capsule Doxycycline Hy clate 100 MG Doxycycline Hyclate 100 MG 06/18/2020 12:00:00 AM EST 1.0 {capsule} active Doxycycline Hyclate 100 MG eCW1 ([facility]) doxycycline hyclate 100 MG Oral Capsule Doxycycline Hy clate 100 MG Doxycycline Hyclate 100 MG 06/18/2020 12:00:00 AM EST 1.0 {capsule} active Doxycycline Hyclate 100 MG eCW1 ([facility]) Prednisone 10 MG Oral Tablet PredniSONE 10 MG PredniSONE 10 MG 06/18/2020 12:00:00 AM EST 3.0 {tablets} active P redniSONE 10 MG eCW1 ([facility]) doxycycline hyclate 100 MG Oral Capsule Doxycycline Hy clate 100 MG Doxycycline Hyclate 100 MG 06/18/2020 12:00:00 AM EST 1.0 {capsule} active Doxycycline Hyclate 100 MG eCW1 ([facility]) doxycycline hyclate 100 MG Oral Capsule Doxycycline Hy clate 100 MG Doxycycline Hyclate 100 MG 06/18/2020 12:00:00 AM EST 1.0 {capsule} active Doxycycline Hyclate 100 MG eCW1 ([facility]) 324 mg (38 mg iron) 06/07/2020 12:00:00 AM EST tablet 45 TAKE ONE TABLET BY MOUTH EVERY OTHER DAY TAKE ONE TABLET BY MOUTH EVERY OTHER DAY SOLD: 06/09/2020 [facility] 31 gauge x 3/16" 06/04/2020 12:00:00 AM EST needle 180 USE TWO TIMES A DAY DIRECTED USE TWO TIMES A DAY DIRECTED SOLD: 06/05/2020 [facility] 31 gauge x 3/16" 06/04/2020 12:00:00 AM EST needle 180 USE TWO TIMES A DAY DIRECTED USE TWO TIMES A DAY DIRECTED SOLD: 2020 [facility] 500-50 mcg/dose 06/04/2020 12:00:00 AM EST blister with galindo ce 180 INHALE ONE PUFF BY MOUTH TWICE A DAY INHALE ONE PUFF BY MOUTH TWICE A DAY SOLD: 06/05/2020 [facility] 62.5 mcg/actuation 04/30/2020 12:00:00 AM EDT blister with d evice 30 INHALE ONE PUFF BY MOUTH EVERY DAY INHALE ONE PUFF BY MOUTH EVERY DAY SOLD: 05/01/2020 [facility] 62.5 mcg/actuation 04/30/2020 12:00:00 AM EDT blister with d evice 30 INHALE ONE PUFF BY MOUTH EVERY DAY INHALE ONE PUFF BY MOUTH EVERY DAY SOLD: 05/30/2020 [facility] 62.5 mcg/actuation 04/30/2020 12:00:00 AM EDT blister with d evice 30 INHALE ONE PUFF BY MOUTH EVERY DAY INHALE ONE PUFF BY MOUTH EVERY DAY SOLD: 2020 [facility] 62.5 mcg/actuation 04/30/2020 12:00:00 AM EDT blister with d evice 30 INHALE ONE PUFF BY MOUTH EVERY DAY INHALE ONE PUFF BY MOUTH EVERY DAY SOLD: 08/06/2020 [facility] 62.5 mcg/actuation 04/30/2020 12:00:00 AM EDT blister with d evice 30 INHALE ONE PUFF BY MOUTH EVERY DAY INHALE ONE PUFF BY MOUTH EVERY DAY SOLD: 07/01/2020 [facility] Alprazolam 0.25 MG Oral Tablet ALPRAZOLAM 04/27/2020 12:00:00 AM EDT tablet 60 TAKE ONE TABLET BY MOUTH TWICE A DAY NEEDED * MAXIM UM DAILY DOSE = 2 TAKE ONE TABLET BY MOUTH TWICE A DAY NEEDED * MAXIMUM DAILY DOSE = 2 SOLD: 04/27/2020 [facility] 100 mg 04/24/2020 12:00:00 AM EDT tablet 45 TAKE 1 & 1/2 TABLETS BY MOUTH ONCE DAILY DIRECTED TAKE 1 & 1/2 TABLETS BY MOUTH ONCE DAILY DIRECTED SOLD: 05/25/2020 [facility] 100 mg 04/24/2020 12:00:00 AM EDT tablet 45 TAKE 1 & 1/2 TABLETS BY MOUTH ONCE DAILY DIRECTED TAKE 1 & 1/2 TABLETS BY MOUTH ONCE DAILY DIRECTED SOLD: 06/25/2020 [facility] 100 mg 04/24/2020 12:00:00 AM EDT tablet 45 TAKE 1 & 1/2 TABLETS BY MOUTH ONCE DAILY DIRECTED TAKE 1 & 1/2 TABLETS BY MOUTH ONCE DAILY DIRECTED SOLD: 04/27/2020 [facility] 50 mg 03/27/2020 12:00:00 AM EDT tablet 90 TAKE ONE TABLET BY MOUTH EVERY DAY TAKE ONE TABLET BY MOUTH EVERY DAY SOLD: 03/28/2020 [facility] 50 mg 03/27/2020 12:00:00 AM EDT tablet 90 TAKE ONE TABLET BY MOUTH EVERY DAY TAKE ONE TABLET BY MOUTH EVERY DAY SOLD: 06/25/2020 [facility] Alprazolam 0.25 MG Oral Tablet ALPRAZOLAM 03/27/2020 12:00:00 AM EDT tablet 60 TAKE ONE TABLET BY MOUTH TWICE A DAY NEEDED MAXIMUM DAILY DOSE = 2 TABLETS TAKE ONE TABLET BY MOUTH TWICE A DAY NEEDED MAXIMUM DAILY DOSE = 2 TABLETS SOLD: 03/28/2020 [facility] Alprazolam 0.25 MG Oral Tablet alprazolam 03/26/2020 12:00:00 AM EDT 0.25 mg by mouth completed [id number] alprazolam by mouth [id number] 05/22/2020 twice a day 30 0.25 mg tablet as needed [id number] Alessia Beck [id number] Nurse Practitioner [facility] ([facility]) Alprazolam 0.25 MG Oral Tablet alprazolam 03/26/2020 12:00:00 AM EDT 0.25 mg by mouth completed [id number] alprazolam by mouth [id number] 05/22/2020 twice a day 30 0.25 mg tablet as needed [id number] Alessia Beck [id number] Nurse Practitioner [facility] ([facility]) buspirone hydrochloride 15 MG Oral Tablet BUSPIRONE HCL 03/15/2020 12:00:00 AM EDT tablet 60 TAKE ONE TABLET BY MOUTH TWI CE A DAY TAKE ONE TABLET BY MOUTH TWICE A DAY SOLD: 03/17/2020 [facility] buspirone hydrochloride 15 MG Oral Tablet BUSPIRONE HCL 03/15/2020 12:00:00 AM EDT tablet 60 TAKE ONE TABLET BY MOUTH TWI CE A DAY TAKE ONE TABLET BY MOUTH TWICE A DAY SOLD: 05/01/2020 [facility] buspirone hydrochloride 15 MG Oral Tablet BUSPIRONE HCL 03/15/2020 12:00:00 AM EDT tablet 60 TAKE ONE TABLET BY MOUTH TWI CE A DAY TAKE ONE TABLET BY MOUTH TWICE A DAY SOLD: 05/30/2020 [facility] 0.6 mg/0.1 mL (18 mg/3 mL) 03/13/2020 12:00:00 AM EDT pen in jector 27 INJECT 1.8MG UNDER THE SKIN ONCE DAILY INJECT 1.8MG UNDER THE SKIN ONCE DAILY SOLD: 03/14/2020 [facility] 0.6 mg/0.1 mL (18 mg/3 mL) 03/13/2020 12:00:00 AM EDT pen in jector 27 INJECT 1.8MG UNDER THE SKIN ONCE DAILY INJECT 1.8MG UNDER THE SKIN ONCE DAILY SOLD: 06/11/2020 [facility] 100 unit/mL (3 mL) 03/13/2020 12:00:00 AM EDT insulin pen 15 INJECT 14 UNITS UNDER THE SKIN ONCE DAILY INJECT 14 UNITS UNDER THE SKIN ONCE DAILY SOLD: 03/14/2020 [facility] 0.6 mg/0.1 mL (18 mg/3 mL) 03/13/2020 12:00:00 AM EDT pen in jector 27 INJECT 1.8MG UNDER THE SKIN ONCE DAILY INJECT 1.8MG UNDER THE SKIN ONCE DAILY SOLD: 09/08/2020 [facility] 100 unit/mL (3 mL) 03/13/2020 12:00:00 AM EDT insulin pen 15 INJECT 14 UNITS UNDER THE SKIN ONCE DAILY INJECT 14 UNITS UNDER THE SKIN ONCE DAILY SOLD: 07/18/2020 [facility] Senna 8.6 MG Senna 8.6 MG 02/21/2020 12:00:00 AM EDT 2.0 {tablet s} active Senna 8.6 MG eCW1 ([facility]) Senna 8.6 MG Senna 8.6 MG 02/21/2020 12:00:00 AM EDT 2.0 {tablet s} active Senna 8.6 MG eCW1 ([facility]) 8.6 mg 02/21/2020 12:00:00 AM EDT tablet 180 TAKE TWO TABLETS BY MOUTH TWO TIMES A DAY TAKE TWO TABLETS BY MOUTH TWO TIMES A DAY SOLD: 02/27/2020 [facility] Alprazolam 0.25 MG Oral Tablet ALPRAZOLAM 02/21/2020 12:00:00 AM EDT tablet 60 TAKE ONE TABLET BY MOUTH TWICE A DAY NEEDED MAXIMUM DAILY DOSE = 2 TAKE ONE TABLET BY MOUTH TWICE A DAY NEEDED MAXIMUM DAILY DOSE = 2 SOLD: 02/22/2020 [facility] Senna 8.6 MG Senna 8.6 MG 02/21/2020 12:00:00 AM EDT 2.0 {tablet s} active Senna 8.6 MG eCW1 ([facility]) Senna 8.6 MG Senna 8.6 MG 02/21/2020 12:00:00 AM EDT 2.0 {tablet s} active Senna 8.6 MG eCW1 ([facility]) Senna 8.6 MG Senna 8.6 MG 02/21/2020 12:00:00 AM EDT 2.0 {tablet s} active Senna 8.6 MG eCW1 ([facility]) Senna 8.6 MG Senna 8.6 MG 02/21/2020 12:00:00 AM EDT 2.0 {tablet s} active Senna 8.6 MG eCW1 ([facility]) Senna 8.6 MG Senna 8.6 MG 02/21/2020 12:00:00 AM EDT 2.0 {tablet s} active Senna 8.6 MG eCW1 ([facility]) Senna 8.6 MG Senna 8.6 MG 02/21/2020 12:00:00 AM EDT 2.0 {tablet s} active Senna 8.6 MG eCW1 ([facility]) Senna 8.6 MG Senna 8.6 MG 02/21/2020 12:00:00 AM EDT 2.0 {tablet s} active Senna 8.6 MG eCW1 ([facility]) Senna 8.6 MG Senna 8.6 MG 02/21/2020 12:00:00 AM EDT 2.0 {tablet s} active Senna 8.6 MG eCW1 ([facility]) Senna 8.6 MG Senna 8.6 MG 02/21/2020 12:00:00 AM EDT 2.0 {tablet s} active Senna 8.6 MG eCW1 ([facility]) Senna 8.6 MG Senna 8.6 MG 02/21/2020 12:00:00 AM EDT 2.0 {tablet s} active Senna 8.6 MG eCW1 ([facility]) Senna 8.6 MG Senna 8.6 MG 02/21/2020 12:00:00 AM EDT 2.0 {tablet s} active Senna 8.6 MG eCW1 ([facility]) 0.6 mg/0.1 mL (18 mg/3 mL) 02/16/2020 12:00:00 AM EDT pen in jector 9 INJECT 1.8MG UNDER THE SKIN ONCE DAILY INJECT 1.8MG UNDER THE SKIN ONCE DAILY SOLD: 02/17/2020 [facility] 500 mg 01/28/2020 12:00:00 AM EDT capsule 14 TAKE ONE CAPSULE BY MOUTH EVERY 12 HOURS TAKE ONE CAPSULE BY MOUTH EVERY 12 HOURS SOLD: 01/28/2020 [facility] Zofran ODT 4 MG UNK 01/24/2020 12:00:00 AM EDT 1.0 {tablet_on_the_tongue_and_allow_to_dissolve} active Zofran ODT 4 MG eCW1 ([facility]) Zofran ODT 4 MG K 01/24/2020 12:00:00 AM EDT 1.0 {tablet_on_the_tongue_and_allow_to_dissolve} active Zofran ODT 4 MG eCW1 ([facility]) Zofran ODT 4 MG K 01/24/2020 12:00:00 AM EDT 1.0 {tablet_on_the_tongue_and_allow_to_dissolve} active Zofran ODT 4 MG eCW1 ([facility]) Zofran ODT 4 MG K 01/24/2020 12:00:00 AM EDT 1.0 {tablet_on_the_tongue_and_allow_to_dissolve} active Zofran ODT 4 MG eCW1 ([facility]) Zofran ODT 4 MG K 01/24/2020 12:00:00 AM EDT 1.0 {tablet_on_the_tongue_and_allow_to_dissolve} active Zofran ODT 4 MG eCW1 ([facility]) Zofran ODT 4 MG K 01/24/2020 12:00:00 AM EDT 1.0 {tablet_on_the_tongue_and_allow_to_dissolve} active Zofran ODT 4 MG eCW1 ([facility]) Zofran ODT 4 MG K 01/24/2020 12:00:00 AM EDT 1.0 {tablet_on_the_tongue_and_allow_to_dissolve} active Zofran ODT 4 MG eCW1 ([facility]) Zofran ODT 4 MG K 01/24/2020 12:00:00 AM EDT 1.0 {tablet_on_the_tongue_and_allow_to_dissolve} active Zofran ODT 4 MG eCW1 ([facility]) 4 mg 01/24/2020 12:00:00 AM EDT tablet,disintegrating 5 6 DISSOLVE 1 TABLET BY MOUTH BEFORE MEALS AND AT BEDTIME FOR 14 DAYS DISSOLVE 1 TABLET BY MOUTH BEFORE MEALS AND AT BEDTIME FOR 14 DAYS SOLD: 01/24/2020 [facility] Zofran ODT 4 MG [facility] 01/24/2020 12:00:00 AM EDT 1.0 {tablet_on_the_tongue_and_allow_to_dissolve} active Zofran ODT 4 MG eCW1 ([facility]) Zofran ODT 4 MG K 01/24/2020 12:00:00 AM EDT 1.0 {tablet_on_the_tongue_and_allow_to_dissolve} active Zofran ODT 4 MG eCW1 ([facility]) Zofran ODT 4 MG K 01/24/2020 12:00:00 AM EDT 1.0 {tablet_on_the_tongue_and_allow_to_dissolve} active Zofran ODT 4 MG eCW1 ([facility]) Zofran ODT 4 MG [facility] 01/24/2020 12:00:00 AM EDT 1.0 {tablet_on_the_tongue_and_allow_to_dissolve} active Zofran ODT 4 MG eCW1 ([facility]) Zofran ODT 4 MG K 01/24/2020 12:00:00 AM EDT 1.0 {tablet_on_the_tongue_and_allow_to_dissolve} active Zofran ODT 4 MG eCW1 ([facility]) Zofran ODT 4 MG K 01/24/2020 12:00:00 AM EDT 1.0 {tablet_on_the_tongue_and_allow_to_dissolve} active Zofran ODT 4 MG eCW1 ([facility]) Zofran ODT 4 MG K 01/24/2020 12:00:00 AM EDT 1.0 {tablet_on_the_tongue_and_allow_to_dissolve} active Zofran ODT 4 MG eCW1 ([facility]) Alprazolam 0.25 MG Oral Tablet ALPRAZOLAM 01/23/2020 12:00:00 AM EDT tablet 60 TAKE ONE TABLET BY MOUTH TWICE A DAY NEEDED MAXIMUM DAILY DOSE = 2 TABLETS TAKE ONE TABLET BY MOUTH TWICE A DAY NEEDED MAXIMUM DAILY DOSE = 2 TABLETS SOLD: 01/23/2020 [facility] Alprazolam 0.25 MG Oral Tablet alprazolam 01/22/2020 12:00:00 AM EDT 0.25 mg by mouth completed [id number] alprazolam by mouth [id number] 03/14/2020 twice a day 30 0.25 mg tablet as needed [id number] Amanda Caraballo [id number] [facility] 100 mg 01/19/2020 12:00:00 AM EDT capsule 90 TAKE ONE CAPSULE BY MOUTH EVERY DAY TAKE ONE CAPSULE BY MOUTH EVERY DAY SOLD: 07/18/2020 [facility] 100 mg 01/19/2020 12:00:00 AM EDT capsule 90 TAKE ONE CAPSULE BY MOUTH EVERY DAY TAKE ONE CAPSULE BY MOUTH EVERY DAY SOLD: 01/20/2020 [facility] 100 mg 01/19/2020 12:00:00 AM EDT capsule 90 TAKE ONE CAPSULE BY MOUTH EVERY DAY TAKE ONE CAPSULE BY MOUTH EVERY DAY SOLD: 04/12/2020 [facility] 100 mg 01/15/2020 12:00:00 AM EDT tablet 45 TAKE 1 AND 1/2 TABLET BY MOUTH ONCE DAILY TAKE 1 AND 1/2 TABLET BY MOUTH ONCE DAILY SOLD: 01/16/2020 [facility] 100 mg 01/15/2020 12:00:00 AM EDT tablet 45 TAKE 1 AND 1/2 TABLET BY MOUTH ONCE DAILY TAKE 1 AND 1/2 TABLET BY MOUTH ONCE DAILY SOLD: 03/05/2020 [facility] 100 mg 01/15/2020 12:00:00 AM EDT tablet 45 TAKE 1 AND 1/2 TABLET BY MOUTH ONCE DAILY TAKE 1 AND 1/2 TABLET BY MOUTH ONCE DAILY SOLD: 04/02/2020 [facility] buspirone hydrochloride 15 MG Oral Tablet BUSPIRONE HCL 01/12/2020 12:00:00 AM EDT tablet 60 TAKE ONE TABLET BY MOUTH TWI CE A DAY TAKE ONE TABLET BY MOUTH TWICE A DAY SOLD: 02/20/2020 [facility] buspirone hydrochloride 15 MG Oral Tablet BUSPIRONE HCL 01/12/2020 12:00:00 AM EDT tablet 60 TAKE ONE TABLET BY MOUTH TWI CE A DAY TAKE ONE TABLET BY MOUTH TWICE A DAY SOLD: 01/14/2020 [facility] 5-500 mg 12/27/2019 12:00:00 AM EDT tablet 90 TAKE ONE TABLET BY MOUTH EVERY DAY AT SUPPER TAKE ONE TABLET BY MOUTH EVERY DAY AT SUPPER SOLD: 03/27/2020 [facility] 5-500 mg 12/27/2019 12:00:00 AM EDT tablet 90 TAKE ONE TABLET BY MOUTH EVERY DAY AT SUPPER TAKE ONE TABLET BY MOUTH EVERY DAY AT SUPPER SOLD: 07/02/2020 [facility] 5-500 mg 12/27/2019 12:00:00 AM EDT tablet 90 TAKE ONE TABLET BY MOUTH EVERY DAY AT SUPPER TAKE ONE TABLET BY MOUTH EVERY DAY AT SUPPER SOLD: 12/28/2019 [facility] Alprazolam 0.25 MG Oral Tablet ALPRAZOLAM 12/22/2019 12:00:00 AM EDT tablet 60 TAKE ONE TABLET BY MOUTH TWICE A DAY MAXIMUM DAILY DOS E = 2 TAKE ONE TABLET BY MOUTH TWICE A DAY MAXIMUM DAILY DOSE = 2 SOLD: 12/24/2019 [facility] Alprazolam 0.25 MG Oral Tablet alprazolam 12/21/2019 12:00:00 AM EDT 0.25 mg by mouth completed [id number] alprazolam by mouth [id number] 01/17/2020 twice a day 30 0.25 mg tablet [id number] Shoshana Worthy [id number] Psychiatric/Mental Health [facility] ([facility]) montelukast 10 MG Oral Tablet MONTELUKAST SODIUM 12/18/2019 12:0 0:00 AM EDT tablet 90 TAKE ONE TABLET BY MOUTH EVERY E VENING TAKE ONE TABLET BY MOUTH EVERY EVENING SOLD: 12/19/2019 [facility] montelukast 10 MG Oral Tablet MONTELUKAST SODIUM 12/18/2019 12:0 0:00 AM EDT tablet 90 TAKE ONE TABLET BY MOUTH EVERY E VENING TAKE ONE TABLET BY MOUTH EVERY EVENING SOLD: 03/20/2020 [facility] montelukast 10 MG Oral Tablet MONTELUKAST SODIUM 12/18/2019 12:0 0:00 AM EDT tablet 90 TAKE ONE TABLET BY MOUTH EVERY E VENING TAKE ONE TABLET BY MOUTH EVERY EVENING SOLD: 06/18/2020 [facility] 1 mg 12/11/2019 12:00:00 AM EDT tablet 90 TAKE ONE TABLET BY MOUTH EVERY DAY TAKE ONE TABLET BY MOUTH EVERY DAY SOLD: 03/20/2020 [facility] 1 mg 12/11/2019 12:00:00 AM EDT tablet 90 TAKE ONE TABLET BY MOUTH EVERY DAY TAKE ONE TABLET BY MOUTH EVERY DAY SOLD: 12/12/2019 [facility] 150 mcg 12/04/2019 12:00:00 AM EDT tablet 90 TAKE ONE TABLET BY MOUTH EVERY MORNING ON EMPTY STOMACH TAKE ONE TABLET BY MOUTH EVERY MORNING O N EMPTY STOMACH SOLD: 06/03/2020 [facility] 150 mcg 12/04/2019 12:00:00 AM EDT tablet 90 TAKE ONE TABLET BY MOUTH EVERY MORNING ON EMPTY STOMACH TAKE ONE TABLET BY MOUTH EVERY MORNING O N EMPTY STOMACH SOLD: 03/05/2020 [facility] 150 mcg 12/04/2019 12:00:00 AM EDT tablet 90 TAKE ONE TABLET BY MOUTH EVERY MORNING ON EMPTY STOMACH TAKE ONE TABLET BY MOUTH EVERY MORNING O N EMPTY STOMACH SOLD: 12/07/2019 [facility] 150 mcg 12/04/2019 12:00:00 AM EDT tablet 90 TAKE ONE TABLET BY MOUTH EVERY MORNING ON EMPTY STOMACH TAKE ONE TABLET BY MOUTH EVERY MORNING O N EMPTY STOMACH SOLD: 2020 [facility] Alprazolam 0.25 MG Oral Tablet ALPRAZOLAM 11/23/2019 12:00:00 AM EDT tablet 60 TAKE ONE TABLET BY MOUTH TWICE A DAY NEEDED, MAXIMU M DAILY DOSE = 2 TABLETS TAKE ONE TABLET BY MOUTH TWICE A DAY NEEDED, MAXIMUM DAILY DOSE = 2 TABLETS SOLD: 11/23/2019 [facility] 100 mg 11/16/2019 12:00:00 AM EDT tablet 45 TAKE ONE AND ONE-HALF TABLETS BY MOUTH EVERY DAY TAKE ONE AND ONE-HALF TABLETS BY MOUTH EVERY DAY SOLD: 11/18/2019 [facility] buspirone hydrochloride 15 MG Oral Tablet BUSPIRONE HCL 11/16/2019 12:00:00 AM EDT tablet 60 TAKE ONE TABLET BY MOUTH TWI CE A DAY TAKE ONE TABLET BY MOUTH TWICE A DAY SOLD: 12/18/2019 [facility] 100 mg 11/16/2019 12:00:00 AM EDT tablet 45 TAKE ONE AND ONE-HALF TABLETS BY MOUTH EVERY DAY TAKE ONE AND ONE-HALF TABLETS BY MOUTH EVERY DAY SOLD: 12/27/2019 [facility] buspirone hydrochloride 15 MG Oral Tablet BUSPIRONE HCL 11/16/2019 12:00:00 AM EDT tablet 60 TAKE ONE TABLET BY MOUTH TWI CE A DAY TAKE ONE TABLET BY MOUTH TWICE A DAY SOLD: 11/18/2019 [facility] Dexamethasone 1 MG/ML / Tobramycin 3 MG/ ML Ophthalmic Suspension [Tobradex] TobraDex 0.3-0.1 % TobraDex 0.3-0.1 % 11/15/2019 12:00:00 AM EDT suspended 1 drop into left eye eCW1 ([facility]) Dexamethasone 1 MG/ML / Tobramycin 3 MG/ ML Ophthalmic Suspension [Tobradex] TobraDex 0.3-0.1 % TobraDex 0.3-0.1 % 11/15/2019 12:00:00 AM EDT suspended TobraDex 0.3-0.1 % eCW1 ([facility]) buspirone hydrochloride 15 MG Oral Tablet buspirone 2019 12:00:00 AM EDT 15 mg by mouth completed [id number] buspirone by mouth [id number] 11/15/2019 twice a day 15 mg tablet [id number] Shoshana Tyler [id number] Psychiatric/Mental [facility] ([facility]) Dexamethasone 1 MG/ML / Tobramycin 3 MG/ ML Ophthalmic Suspension [Tobradex] TobraDex 0.3-0.1 % TobraDex 0.3-0.1 % 11/15/2019 12:00:00 AM EDT suspended TobraDex 0.3-0.1 % eCW1 ([facility]) Dexamethasone 1 MG/ML / Tobramycin 3 MG/ ML Ophthalmic Suspension [Tobradex] TobraDex 0.3-0.1 % TobraDex 0.3-0.1 % 11/15/2019 12:00:00 AM EDT suspended TobraDex 0.3-0.1 % eCW1 ([facility]) 0.3-0.1 % 11/15/2019 12:00:00 AM EDT drops,suspension 5 INSERT 1 DROP INTO LEFT EYE THREE TIMES A DAY INSERT 1 DROP INTO LEFT EYE THREE TIMES A DAY SOLD: 11/15/2019 [facility] Dexamethasone 1 MG/ML / Tobramycin 3 MG/ ML Ophthalmic Suspension [Tobradex] TobraDex 0.3-0.1 % TobraDex 0.3-0.1 % 11/15/2019 12:00:00 AM EDT suspended TobraDex 0.3-0.1 % eCW1 ([facility]) Dexamethasone 1 MG/ML / Tobramycin 3 MG/ ML Ophthalmic Suspension [Tobradex] TobraDex 0.3-0.1 % TobraDex 0.3-0.1 % 11/15/2019 12:00:00 AM EDT suspended TobraDex 0.3-0.1 % eCW1 ([facility]) Dexamethasone 1 MG/ML / Tobramycin 3 MG/ ML Ophthalmic Suspension [Tobradex] TobraDex 0.3-0.1 % TobraDex 0.3-0.1 % 11/15/2019 12:00:00 AM EDT suspended TobraDex 0.3-0.1 % eCW1 ([facility]) Dexamethasone 1 MG/ML / Tobramycin 3 MG/ ML Ophthalmic Suspension [Tobradex] TobraDex 0.3-0.1 % TobraDex 0.3-0.1 % 11/15/2019 12:00:00 AM EDT suspended TobraDex 0.3-0.1 % eCW1 ([facility]) Dexamethasone 1 MG/ML / Tobramycin 3 MG/ ML Ophthalmic Suspension [Tobradex] TobraDex 0.3-0.1 % TobraDex 0.3-0.1 % 11/15/2019 12:00:00 AM EDT suspended TobraDex 0.3-0.1 % eCW1 ([facility]) Dexamethasone 1 MG/ML / Tobramycin 3 MG/ ML Ophthalmic Suspension [Tobradex] TobraDex 0.3-0.1 % TobraDex 0.3-0.1 % 11/15/2019 12:00:00 AM EDT suspended TobraDex 0.3-0.1 % eCW1 ([facility]) Dexamethasone 1 MG/ML / Tobramycin 3 MG/ ML Ophthalmic Suspension [Tobradex] TobraDex 0.3-0.1 % TobraDex 0.3-0.1 % 11/15/2019 12:00:00 AM EDT suspended TobraDex 0.3-0.1 % eCW1 ([facility]) Dexamethasone 1 MG/ML / Tobramycin 3 MG/ ML Ophthalmic Suspension [Tobradex] TobraDex 0.3-0.1 % TobraDex 0.3-0.1 % 11/15/2019 12:00:00 AM EDT suspended TobraDex 0.3-0.1 % eCW1 ([facility]) Dexamethasone 1 MG/ML / Tobramycin 3 MG/ ML Ophthalmic Suspension [Tobradex] TobraDex 0.3-0.1 % TobraDex 0.3-0.1 % 11/15/2019 12:00:00 AM EDT suspended TobraDex 0.3-0.1 % eCW1 ([facility]) Dexamethasone 1 MG/ML / Tobramycin 3 MG/ ML Ophthalmic Suspension [Tobradex] TobraDex 0.3-0.1 % TobraDex 0.3-0.1 % 11/15/2019 12:00:00 AM EDT suspended TobraDex 0.3-0.1 % eCW1 ([facility]) Dexamethasone 1 MG/ML / Tobramycin 3 MG/ ML Ophthalmic Suspension [Tobradex] TobraDex 0.3-0.1 % TobraDex 0.3-0.1 % 11/15/2019 12:00:00 AM EDT suspended TobraDex 0.3-0.1 % eCW1 ([facility]) Dexamethasone 1 MG/ML / Tobramycin 3 MG/ ML Ophthalmic Suspension [Tobradex] TobraDex 0.3-0.1 % TobraDex 0.3-0.1 % 11/15/2019 12:00:00 AM EDT suspended TobraDex 0.3-0.1 % eCW1 ([facility]) Dexamethasone 1 MG/ML / Tobramycin 3 MG/ ML Ophthalmic Suspension [Tobradex] TobraDex 0.3-0.1 % TobraDex 0.3-0.1 % 11/15/2019 12:00:00 AM EDT suspended TobraDex 0.3-0.1 % eCW1 ([facility]) Dexamethasone 1 MG/ML / Tobramycin 3 MG/ ML Ophthalmic Suspension [Tobradex] TobraDex 0.3-0.1 % TobraDex 0.3-0.1 % 11/15/2019 12:00:00 AM EDT suspended TobraDex 0.3-0.1 % eCW1 ([facility]) Dexamethasone 1 MG/ML / Tobramycin 3 MG/ ML Ophthalmic Suspension [Tobradex] TobraDex 0.3-0.1 % TobraDex 0.3-0.1 % 11/15/2019 12:00:00 AM EDT suspended TobraDex 0.3-0.1 % eCW1 ([facility]) 40 mg 11/13/2019 12:00:00 AM EDT tablet 180 TAKE ONE TABLET BY MOUTH TWICE A DAY TAKE ONE TABLET BY MOUTH TWICE A DAY SOLD: 08/06/2020 [facility] 40 mg 11/13/2019 12:00:00 AM EDT tablet 180 TAKE ONE TABLET BY MOUTH TWICE A DAY TAKE ONE TABLET BY MOUTH TWICE A DAY SOLD: 02/07/2020 [facility] 40 mg 11/13/2019 12:00:00 AM EDT tablet 180 TAKE ONE TABLET BY MOUTH TWICE A DAY TAKE ONE TABLET BY MOUTH TWICE A DAY SOLD: 11/14/2019 [facility] 40 mg 11/13/2019 12:00:00 AM EDT tablet 180 TAKE ONE TABLET BY MOUTH TWICE A DAY TAKE ONE TABLET BY MOUTH TWICE A DAY SOLD: 05/08/2020 [facility] 0.6 mg/0.1 mL (18 mg/3 mL) 11/11/2019 12:00:00 AM EDT pen in jector 9 INJECT 1.8ML ONCE DAILY INJECT 1.8ML ONCE DAILY SOLD: 11/11/2019 [facility] 0.6 mg/0.1 mL (18 mg/3 mL) 11/11/2019 12:00:00 AM EDT pen in jector 9 INJECT 1.8ML ONCE DAILY INJECT 1.8ML ONCE DAILY SOLD: 01/14/2020 [facility] 0.6 mg/0.1 mL (18 mg/3 mL) 11/11/2019 12:00:00 AM EDT pen in jector 9 INJECT 1.8ML ONCE DAILY INJECT 1.8ML ONCE DAILY SOLD: 12/12/2019 [facility] 100 unit/mL (3 mL) 11/10/2019 12:00:00 AM EDT insulin pen 15 INJECT 14 UNITS EVERY MORNING INJECT 14 UNITS EVERY MORNING SOLD: 11/11/2019 [facility] 300 mg 11/06/2019 12:00:00 AM EDT capsule 270 TAKE ONE CAPSULE BY MOUTH THREE TIMES A DAY TAKE ONE CAPSULE BY MOUTH THREE TIMES A DAY SOLD: 11/07/2019 [facility] 300 mg 11/06/2019 12:00:00 AM EDT capsule 270 TAKE ONE CAPSULE BY MOUTH THREE TIMES A DAY TAKE ONE CAPSULE BY MOUTH THREE TIMES A DAY SOLD: 08/06/2020 [facility] 300 mg 11/06/2019 12:00:00 AM EDT capsule 270 TAKE ONE CAPSULE BY MOUTH THREE TIMES A DAY TAKE ONE CAPSULE BY MOUTH THREE TIMES A DAY SOLD: 05/08/2020 [facility] 300 mg 11/06/2019 12:00:00 AM EDT capsule 270 TAKE ONE CAPSULE BY MOUTH THREE TIMES A DAY TAKE ONE CAPSULE BY MOUTH THREE TIMES A DAY SOLD: 02/07/2020 [facility] Alprazolam 0.25 MG Oral Tablet ALPRAZOLAM 10/24/2019 12:00:00 AM EDT tablet 60 TAKE ONE TABLET BY MOUTH TWICE A DAY NEEDED MAXIMUM DAILY DOSE = 2 TAKE ONE TABLET BY MOUTH TWICE A DAY NEEDED MAXIMUM DAILY DOSE = 2 SOLD: 10/24/2019 [facility] 62.5 mcg/actuation 10/18/2019 12:00:00 AM EDT blister with d evice 30 INHALE ONE PUFF BY MOUTH EVERY DAY INHALE ONE PUFF BY MOUTH EVERY DAY SOLD: 10/20/2019 [facility] 62.5 mcg/actuation 10/18/2019 12:00:00 AM EDT blister with d evice 30 INHALE ONE PUFF BY MOUTH EVERY DAY INHALE ONE PUFF BY MOUTH EVERY DAY SOLD: 02/22/2020 [facility] 62.5 mcg/actuation 10/18/2019 12:00:00 AM EDT blister with d evice 30 INHALE ONE PUFF BY MOUTH EVERY DAY INHALE ONE PUFF BY MOUTH EVERY DAY SOLD: 01/24/2020 [facility] 62.5 mcg/actuation 10/18/2019 12:00:00 AM EDT blister with d evice 30 INHALE ONE PUFF BY MOUTH EVERY DAY INHALE ONE PUFF BY MOUTH EVERY DAY SOLD: 11/26/2019 [facility] 62.5 mcg/actuation 10/18/2019 12:00:00 AM EDT blister with d evice 30 INHALE ONE PUFF BY MOUTH EVERY DAY INHALE ONE PUFF BY MOUTH EVERY DAY SOLD: 12/27/2019 [facility] 62.5 mcg/actuation 10/18/2019 12:00:00 AM EDT blister with d evice 30 INHALE ONE PUFF BY MOUTH EVERY DAY INHALE ONE PUFF BY MOUTH EVERY DAY SOLD: 03/27/2020 [facility] 324 mg (38 mg iron) 09/25/2019 12:00:00 AM EST tablet 45 TAKE ONE TABLET BY MOUTH EVERY OTHER DAY TAKE ONE TABLET BY MOUTH EVERY OTHER DAY SOLD: 12/18/2019 [facility] Alprazolam 0.25 MG Oral Tablet ALPRAZOLAM 09/25/2019 12:00:00 AM EST tablet 60 TAKE ONE TABLET BY MOUTH TWICE A DAY NEEDED MAXIMUM DAILY DOSE = 2 TAKE ONE TABLET BY MOUTH TWICE A DAY NEEDED MAXIMUM DAILY DOSE = 2 SOLD: 09/25/2019 [facility] 324 mg (38 mg iron) 09/25/2019 12:00:00 AM EST tablet 45 TAKE ONE TABLET BY MOUTH EVERY OTHER DAY TAKE ONE TABLET BY MOUTH EVERY OTHER DAY SOLD: 09/27/2019 [facility] Alprazolam 0.25 MG Oral Tablet [Xanax] Xanax 09/25/2019 12:0 0:00 AM EST 0.25 mg by mouth completed [id number] Xanax by mouth [id number] 11/17/2019 twice a day 30 0.25 mg tablet as needed [id number] Amanda Caraballo [id number] Psychiatric/Mental Health [facility] ([facility]) 324 mg (38 mg iron) 09/25/2019 12:00:00 AM EST tablet 45 TAKE ONE TABLET BY MOUTH EVERY OTHER DAY TAKE ONE TABLET BY MOUTH EVERY OTHER DAY SOLD: 03/14/2020 [facility] 100,000 unit/gram 09/21/2019 12:00:00 AM EST powder 180 APPLY 1 APPLICATION TO AREA UNDER BREAST TWO TIMES A DAY APPLY 1 APPLICATION TO AREA UNDER BREAST TWO TIMES A DAY SOLD: 09/23/2019 [facility] 100,000 unit/gram 09/21/2019 12:00:00 AM EST powder 180 APPLY 1 APPLICATION TO AREA UNDER BREAST TWO TIMES A DAY APPLY 1 APPLICATION TO AREA UNDER BREAST TWO TIMES A DAY SOLD: 02/14/2020 [facility] 40 mg 09/20/2019 12:00:00 AM EST capsule,delayed release (DR/EC) 180 TAKE ONE CAPSULE BY MOUTH TWICE A DAY TAKE ONE CAPSULE BY MOUTH TWICE A DAY SOLD: 03/27/2020 [facility] 300 mg 09/20/2019 12:00:00 AM EST tablet 90 TAKE ONE TABLET BY MOUTH EVERY DAY TAKE ONE TABLET BY MOUTH EVERY DAY SOLD: 06/25/2020 [facility] 40 mg 09/20/2019 12:00:00 AM EST capsule,delayed release (DR/EC) 180 TAKE ONE CAPSULE BY MOUTH TWICE A DAY TAKE ONE CAPSULE BY MOUTH TWICE A DAY SOLD: 06/25/2020 [facility] 90 mcg/actuation 09/20/2019 12:00:00 AM EST HFA aerosol inha ler 54 INHALE TWO PUFFS BY MOUTH EVERY 4 HOURS NEEDED FOR SHORTNESS OF BREATH ,COUGH, WHEEZE INHALE TWO PUFFS BY MOUTH EVERY 4 HOURS NEEDED FOR SHORTNESS OF BREATH ,COUGH, WHEEZE SOLD: 09/08/2020 [facility] 40 mg 09/20/2019 12:00:00 AM EST capsule,delayed release (DR/EC) 180 TAKE ONE CAPSULE BY MOUTH TWICE A DAY TAKE ONE CAPSULE BY MOUTH TWICE A DAY SOLD: 09/23/2019 [facility] 300 mg 09/20/2019 12:00:00 AM EST tablet 90 TAKE ONE TABLET BY MOUTH EVERY DAY TAKE ONE TABLET BY MOUTH EVERY DAY SOLD: 03/27/2020 [facility] 40 mg 09/20/2019 12:00:00 AM EST capsule,delayed release (DR/EC) 180 TAKE ONE CAPSULE BY MOUTH TWICE A DAY TAKE ONE CAPSULE BY MOUTH TWICE A DAY SOLD: 12/27/2019 [facility] 300 mg 09/20/2019 12:00:00 AM EST tablet 90 TAKE ONE TABLET BY MOUTH EVERY DAY TAKE ONE TABLET BY MOUTH EVERY DAY SOLD: 12/27/2019 [facility] 90 mcg/actuation 09/20/2019 12:00:00 AM EST HFA aerosol inha ler 54 INHALE TWO PUFFS BY MOUTH EVERY 4 HOURS NEEDED FOR SHORTNESS OF BREATH ,COUGH, WHEEZE INHALE TWO PUFFS BY MOUTH EVERY 4 HOURS NEEDED FOR SHORTNESS OF BREATH ,COUGH, WHEEZE SOLD: 09/23/2019 [facility] 300 mg 09/20/2019 12:00:00 AM EST tablet 90 TAKE ONE TABLET BY MOUTH EVERY DAY TAKE ONE TABLET BY MOUTH EVERY DAY SOLD: 09/23/2019 [facility] Hospital bed K 09/19/2019 12:00:00 AM EST activ e Hospital bed eCW1 ([facility]) Hospital bed UNK 09/19/2019 12:00:00 AM EST activ e Hospital bed eCW1 ([facility]) Hospital bed UNK 09/19/2019 12:00:00 AM EST activ e Hospital bed eCW1 ([facility]) Hospital bed UNK 09/19/2019 12:00:00 AM EST activ e Hospital bed eCW1 ([facility]) Hospital bed UNK 09/19/2019 12:00:00 AM EST activ e Hospital bed eCW1 ([facility]) Hospital bed UNK 09/19/2019 12:00:00 AM EST activ e Hospital bed eCW1 ([facility]) 100 mg 09/19/2019 12:00:00 AM EST tablet 45 TAKE ONE AND ONE-HALF TABLETS BY MOUTH EVERY DAY DIRECTED TAKE ONE AND ONE-HALF TABLETS BY MOUTH E VERY DAY DIRECTED SOLD: 10/24/2019 [facility] 09/19/2019 12:00:00 AM EST activ e Hospital bed eCW1 ([facility]) Hospital bed UNK 09/19/2019 12:00:00 AM EST activ e Hospital bed eCW1 ([facility]) 100 mg 09/19/2019 12:00:00 AM EST tablet 45 TAKE ONE AND ONE-HALF TABLETS BY MOUTH EVERY DAY DIRECTED TAKE ONE AND ONE-HALF TABLETS BY MOUTH E VERY DAY DIRECTED SOLD: 09/23/2019 [facility] bed UNK 09/19/2019 12:00:00 AM EST activ e Hospital bed eCW1 ([facility]) Hospital bed UNK 09/19/2019 12:00:00 AM EST activ e Hospital bed eCW1 ([facility]) Hospital bed UNK 09/19/2019 12:00:00 AM EST activ e as directed eCW1 ([facility]) Hospital bed UNK 09/19/2019 12:00:00 AM EST activ e Hospital bed eCW1 ([facility]) Hospital bed UNK 09/19/2019 12:00:00 AM EST activ e Hospital bed eCW1 ([facility]) Hospital bed UNK 09/19/2019 12:00:00 AM EST activ e Hospital bed eCW1 ([facility]) Hospital bed UNK 09/19/2019 12:00:00 AM EST activ e as directed eCW1 ([facility]) buspirone hydrochloride 10 MG Oral Tablet BUSPIRONE HCL 09/19/2019 12:00:00 AM EST tablet 60 TAKE ONE TABLET BY MOUTH TWI CE A DAY TAKE ONE TABLET BY MOUTH TWICE A DAY SOLD: 09/23/2019 [facility] Hospital bed UNK 09/19/2019 12:00:00 AM EST activ e Hospital bed eCW1 ([facility]) Hospital bed UNK 09/19/2019 12:00:00 AM EST activ e Hospital bed eCW1 ([facility]) buspirone hydrochloride 10 MG Oral Tablet BUSPIRONE HCL 09/19/2019 12:00:00 AM EST tablet 60 TAKE ONE TABLET BY MOUTH TWI CE A DAY TAKE ONE TABLET BY MOUTH TWICE A DAY SOLD: 10/24/2019 [facility] Hospital bed UNK 09/19/2019 12:00:00 AM EST activ e Hospital bed eCW1 ([facility]) Hospital bed UNK 09/19/2019 12:00:00 AM EST activ e Hospital bed eCW1 ([facility]) Hospital bed UNK 09/19/2019 12:00:00 AM EST activ e Hospital bed eCW1 ([facility]) Alprazolam 0.25 MG Oral Tablet ALPRAZOLAM 09/07/2019 12:00:00 AM EST tablet 30 TAKE ONE TABLET BY MOUTH TWICE A DAY NEEDED, TANG M DAILY DOSE = 2 TABLETS TAKE ONE TABLET BY MOUTH TWICE A DAY NEEDED, MAXIMUM DAILY DOSE = 2 TABLETS SOLD: 09/08/2019 [facility] atorvastatin 40 MG Oral Tablet ATORVASTATIN CALCIUM 08/28/2019 1 2:00:00 AM EST tablet 90 TAKE ONE TABLET BY MOUTH EVERY D AY TAKE ONE TABLET BY MOUTH EVERY DAY SOLD: 06/03/2020 [facility] 40 mg 08/28/2019 12:00:00 AM EST tablet 90 TAKE ONE TABLET BY MOUTH EVERY DAY TAKE ONE TABLET BY MOUTH EVERY DAY SOLD: 03/05/2020 [facility] 40 mg 08/28/2019 12:00:00 AM EST tablet 90 TAKE ONE TABLET BY MOUTH EVERY DAY TAKE ONE TABLET BY MOUTH EVERY DAY SOLD: 08/30/2019 [facility] 40 mg 08/28/2019 12:00:00 AM EST tablet 90 TAKE ONE TABLET BY MOUTH EVERY DAY TAKE ONE TABLET BY MOUTH EVERY DAY SOLD: 12/07/2019 [facility] Alprazolam 0.25 MG Oral Tablet ALPRAZOLAM 08/24/2019 12:00:00 AM EST tablet 30 TAKE ONE TABLET BY MOUTH TWO TIMES A DAY NEEDED MAXIMUM DAILY DOSE = 2 TABLETS TAKE ONE TABLET BY MOUTH TWO TIMES A DAY NEEDED MAXIMUM DAILY DOSE = 2 TABLETS SOLD: 08/24/2019 [facility] 8.6 mg 08/22/2019 12:00:00 AM EST tablet 360 TAKE TWO TABLETS BY MOUTH TWICE A DAY TAKE TWO TABLETS BY MOUTH TWICE A DAY SOLD: 08/22/2019 [facility] Alprazolam 0.25 MG Oral Tablet ALPRAZOLAM 08/10/2019 12:00:00 AM EST tablet 30 TAKE ONE TABLET BY MOUTH TWICE A DAY NEEDED, TANG Aggarwal DAILY DOSE = 2 TABLETS TAKE ONE TABLET BY MOUTH TWICE A DAY NEEDED, MAXIMUM DAILY DOSE = 2 TABLETS SOLD: 08/10/2019 [facility] 0.25 mg 07/21/2019 12:00:00 AM EST tablet 50 TAKE ONE TABLET BY MOUTH TWICE A DAY NEEDED. MAY TAKE AN ADDITIONAL TABLET EVERY DAY FOR ANXIETY IF NEEDED. MAXIMUM DAILY DOSE = 3 TABLETS TAKE ONE TABLET BY MOUTH TWICE A DAY NEEDED. MAY TAKE AN ADDITIONAL TABLET EVERY DAY FOR ANXIETY IF NEEDED. MAXIMUM DAILY DOSE = 3 TABLETS SOLD: 07/22/2019 [facility] Albuterol 0.83 MG/ML Inhalant Solution Albuterol Sulfate 1 09/20/2018 12:00:00 AM EST active [facility] ([facility]) Clotrimazole 10 MG Oral Lozenge Clotrimazole 07/20/2019 12:00:00 AM EST active [facility] ([facility]) 3 ML liraglutide 6 MG/ML Pen Injector [Victoza] Victoza 07/20/2019 12:00:00 AM EST active [facility] ([facility]) 7 ACTUAT umeclidinium 0.0625 MG/ACTUAT Dry Powder Inha ler [Incruse] Incruse Ellipta 07/20/2019 12:00:00 AM EST RESPIRATORY active [facility] ([facility]) montelukast 10 MG Oral Tablet Montelukast Sodium 07/20/2019 12:00:00 AM EST ORAL active [facility] ([facility]) atorvastatin 40 MG Oral Tablet Atorvastatin Calcium 07/20/2019 1 2:00:00 AM EST ORAL active [facility] ( [facility]) ciclopirox 7.7 MG/ML Topical Cream Ciclopirox Olamine 07/20 12:00:00 AM EST active [facility] ([facility]) Vitamin B 12 0.5 MG Oral Tablet Vitamin B-12 07/20/2019 12:00:[address] ORAL active [facility] ([facility]) insulin detemir 100 UNT/ML Injectable Solution [Levemir] Lev reginald 07/20/2019 12:00:00 AM EST SUBCUTANEOUS active [facility] ([facility]) Alprazolam 0.5 MG Oral Tablet Alprazolam 07/20/2019 12:00:00 AM EST ORAL active [facility] ([facility]) Glipizide 5 MG / Metformin hydrochloride 500 MG Oral T ablet Glipizide/Metformin Hydrochloride 07/20/2019 12:00:00 AM EST ORAL active [facility] ([facility]) buspirone hydrochloride 10 MG Oral Tablet Buspirone HCL 07/20/2019 12:00:00 AM EST ORAL active [facility] Levothyroxine Sodium 0.175 MG Oral Tablet Levothyroxine Sodi um 07/20/2019 12:00:00 AM EST ORAL active [facility] ([facility]) Furosemide 40 MG Oral Tablet Furosemide 07/20/2019 12:00:00 AM EST ORAL active [facility] ([facility]) Omeprazole 40 MG Delayed Release Oral Capsule Omeprazole 07/20/2019 12:00:00 AM EST ORAL active [facility] ([facility]) 60 ACTUAT Fluticasone propionate 0.5 MG/ ACTUAT / salmeterol 0.05 MG/ACTUAT Dry Powder Inhaler [Advair] Advair Diskus 07/20/2019 12:00:00 AM EST RESPIRATORY active [facility] ([facility]) Calcitriol 0.0005 MG Oral Capsule Calcitriol 07/20/2019 12:00:[address] ORAL active [facility] ([facility]) sennosides, ASSISTED 8.6 MG Oral Tablet Senna 07/20/2019 12:00:00 AM EST ORAL active [facility] ([facility]) sennosides, ASSISTED 8.6 MG Oral Tablet Senna 07/20/2019 12:00:00 AM EST ORAL active [facility] ([facility]) Omeprazole 40 MG Delayed Release Oral Capsule Omeprazole 07/20/2019 12:00:00 AM EST ORAL active [facility] ([facility]) 60 ACTUAT Fluticasone propionate 0.5 MG/ ACTUAT / salmeterol 0.05 MG/ACTUAT Dry Powder Inhaler [Advair] Advair Diskus 07/20/2019 12:00:00 AM EST RESPIRATORY active [facility] ([facility]) montelukast 10 MG Oral Tablet Montelukast Sodium 07/20/2019 12:00:00 AM EST ORAL active [facility] ([facility]) Vitamin B 12 0.5 MG Oral Tablet Vitamin B 12 07/20/2019 12:00:[address] ORAL active [facility] ([facility]) atorvastatin 40 MG Oral Tablet Atorvastatin Calcium 07/20/2019 1 2:00:00 AM EST ORAL active [facility] ( [facility]) 3 ML liraglutide 6 MG/ML Pen Injector [Victoza] Victoza 07/20/2019 12:00:00 AM EST active [facility] ([facility]) Albuterol 0.83 MG/ML Inhalant Solution Albuterol Sulfate 1 09/20/2018 12:00:00 AM EST active [facility] ([facility]) 7 ACTUAT umeclidinium 0.0625 MG/ACTUAT Dry Powder Inha ler [Incruse] Incruse Ellipta 07/20/2019 12:00:00 AM EST RESPIRATORY active [facility] ([facility]) ciclopirox 7.7 MG/ML Topical Cream Ciclopirox Olamine 07/20 12:00:00 AM EST active [facility] ([facility] Clotrimazole 10 MG Oral Lozenge Clotrimazole 07/20/2019 12:00:00 AM EST active [facility] ([facility]) Folic Acid 1 MG Oral Tablet Folic Acid 07/20/2019 12:00:00 AM EST ORAL active [facility] ([facility]) ferrous gluconate 324 MG Oral Tablet Ferrous Gluconate 12:00:00 AM EST ORAL active [facility] ([facility]) Allopurinol 300 MG Oral Tablet Allopurinol 07/20/2019 12:00:00 AM EST ORAL active [facility] ([facility]) Docusate Sodium 100 MG Oral Capsule Docusate Sodium 07/20/2019 1 2:00:00 AM EST ORAL active [facility] ( [facility]) Sertraline 100 MG Oral Tablet Sertraline HCL 07/20/2019 12:00:[address] ORAL completed [facility] ([facility]) gabapentin 300 MG Oral Capsule Gabapentin 07/20/2019 12:00:00 AM EST ORAL active [facility] ([facility]) Losartan Potassium 50 MG Oral Tablet Losartan Potassium 12:00:00 AM EST ORAL active [facility] ([facility]) Glipizide 5 MG / Metformin hydrochloride 500 MG Oral T ablet Glipizide/Metformin Hydrochloride 07/20/2019 12:00:00 AM EST ORAL active [facility] ([facility]) Allopurinol 300 MG Oral Tablet Allopurinol 07/20/2019 12:00:00 AM EST ORAL active [facility] ([facility]) Docusate Sodium 100 MG Oral Capsule Docusate Sodium 07/20/2019 1 2:00:00 AM EST ORAL active [facility] ( [facility]) Folic Acid 1 MG Oral Tablet Folic Acid 07/20/2019 12:00:00 AM EST ORAL active [facility] ([facility]) insulin detemir 100 UNT/ML Injectable Solution [Levemir] Lev reginald 07/20/2019 12:00:00 AM EST SUBCUTANEOUS active [facility] ([facility]) Alprazolam 0.5 MG Oral Tablet Alprazolam 07/20/2019 12:00:00 AM EST ORAL active [facility] ([facility]) ferrous gluconate 324 MG Oral Tablet Ferrous Gluconate 12:00:00 AM EST ORAL active [facility] ([facility] Calcitriol 0.0005 MG Oral Capsule Calcitriol 07/20/2019 12:00:[address] ORAL active [facility] ([facility]) gabapentin 300 MG Oral Capsule Gabapentin 07/20/2019 12:00:00 AM EST ORAL active [facility] ([facility]) Levothyroxine Sodium 0.175 MG Oral Tablet Levothyroxine Sodi um 07/20/2019 12:00:00 AM EST ORAL active M [facility] ([facility]) Losartan Potassium 50 MG Oral Tablet Losartan Potassium 12:00:00 AM EST ORAL active [facility] ([facility] buspirone hydrochloride 10 MG Oral Tablet Buspirone HCL 07/20/2019 12:00:00 AM EST ORAL active [facility] ([facility]) Sertraline 100 MG Oral Tablet Sertraline HCL 07/20/2019 12:00:[address] ORAL active [facility] ([facility] Furosemide 40 MG Oral Tablet Furosemide 07/20/2019 12:00:00 AM EST ORAL active [facility] ([facility]) 0.5 mcg 07/14/2019 12:00:00 AM EST capsule 90 TAKE ONE CAPSULE BY MOUTH EVERY DAY TAKE ONE CAPSULE BY MOUTH EVERY DAY SOLD: 05/08/2020 [facility] 0.5 mcg 07/14/2019 12:00:00 AM EST capsule 90 TAKE ONE CAPSULE BY MOUTH EVERY DAY TAKE ONE CAPSULE BY MOUTH EVERY DAY SOLD: 11/14/2019 [facility] 0.5 mcg 07/14/2019 12:00:00 AM EST capsule 90 TAKE ONE CAPSULE BY MOUTH EVERY DAY TAKE ONE CAPSULE BY MOUTH EVERY DAY SOLD: 02/14/2020 [facility] buspirone hydrochloride 10 MG Oral Tablet BUSPIRONE HCL 06/22/2019 12:00:00 AM EST tablet 60 TAKE ONE TABLET BY MOUTH TWI CE A DAY TAKE ONE TABLET BY MOUTH TWICE A DAY SOLD: 08/22/2019 [facility] buspirone hydrochloride 10 MG Oral Tablet BUSPIRONE HCL 06/22/2019 12:00:00 AM EST tablet 60 TAKE ONE TABLET BY MOUTH TWI CE A DAY TAKE ONE TABLET BY MOUTH TWICE A DAY SOLD: 07/27/2019 [facility] 100 mg 06/22/2019 12:00:00 AM EST tablet 45 TAKE 1 AND 1/2 TABLET BY MOUTH ONCE DAILY TAKE 1 AND 1/2 TABLET BY MOUTH ONCE DAILY SOLD: 07/27/2019 [facility] 100 mg 06/22/2019 12:00:00 AM EST tablet 45 TAKE 1 AND 1/2 TABLET BY MOUTH ONCE DAILY TAKE 1 AND 1/2 TABLET BY MOUTH ONCE DAILY SOLD: 08/22/2019 [facility] 1 mg 06/17/2019 12:00:00 AM EST tablet 90 TAKE ONE TABLET BY MOUTH EVERY DAY TAKE ONE TABLET BY MOUTH EVERY DAY SOLD: 09/23/2019 [facility] 100 unit/mL (3 mL) 06/07/2019 12:00:00 AM EST insulin pen 15 INJECT 18 UNITS EVERY MORNING INJECT 18 UNITS EVERY MORNING SOLD: 08/22/2019 [facility] 31 gauge x 3/16" 05/06/2019 12:00:00 AM EDT needle 100 USE TWO TIMES A DAY USE TWO TIMES A DAY SOLD: 03/05/2020 [facility] 31 gauge x 3/16" 05/06/2019 12:00:00 AM EDT needle 100 USE TWO TIMES A DAY USE TWO TIMES A DAY SOLD: 01/14/2020 [facility] 31 gauge x 3/16" 05/06/2019 12:00:00 AM EDT needle 100 USE TWO TIMES A DAY USE TWO TIMES A DAY SOLD: 04/24/2020 [facility] 31 gauge x 3/16" 05/06/2019 12:00:00 AM EDT needle 100 USE TWO TIMES A DAY USE TWO TIMES A DAY SOLD: 11/26/2019 [facility] 31 gauge x 3/16" 05/06/2019 12:00:00 AM EDT needle 100 USE TWO TIMES A DAY USE TWO TIMES A DAY SOLD: 08/22/2019 [facility] 31 gauge x 3/16" 05/06/2019 12:00:00 AM EDT needle 100 USE TWO TIMES A DAY USE TWO TIMES A DAY SOLD: 10/04/2019 [facility] 100 mg 04/25/2019 12:00:00 AM EDT capsule 90 TAKE ONE CAPSULE BY MOUTH EVERY DAY TAKE ONE CAPSULE BY MOUTH EVERY DAY SOLD: 07/27/2019 [facility] 100 mg 04/25/2019 12:00:00 AM EDT capsule 90 TAKE ONE CAPSULE BY MOUTH EVERY DAY TAKE ONE CAPSULE BY MOUTH EVERY DAY SOLD: 10/18/2019 [facility] 62.5 mcg/actuation 04/19/2019 12:00:00 AM EDT blister with d evice 30 INHALE ONE PUFF ONCE DAILY INHALE ONE PUFF ONCE DAILY SOLD: 09/23/2019 [facility] 62.5 mcg/actuation 04/19/2019 12:00:00 AM EDT blister with d evice 30 INHALE ONE PUFF ONCE DAILY INHALE ONE PUFF ONCE DAILY SOLD: 08/22/2019 [facility] 62.5 mcg/actuation 04/19/2019 12:00:00 AM EDT blister with d evice 30 INHALE ONE PUFF ONCE DAILY INHALE ONE PUFF ONCE DAILY SOLD: 07/28/2019 [facility] 500-50 mcg/dose 03/17/2019 12:00:00 AM EDT blister with galindo ce 180 INHALE ONE PUFF BY MOUTH TWICE A DAY INHALE ONE PUFF BY MOUTH TWICE A DAY SOLD: 02/27/2020 [facility] 500-50 mcg/dose 03/17/2019 12:00:00 AM EDT blister with galindo ce 180 INHALE ONE PUFF BY MOUTH TWICE A DAY INHALE ONE PUFF BY MOUTH TWICE A DAY SOLD: 09/14/2019 [facility] Losartan Potassium 50 MG Oral Tablet LOSARTAN POTASSIUM 12:00:00 AM EDT tablet 90 TAKE ONE TABLET BY MOUTH VINCENZO RY DAY TAKE ONE TABLET BY MOUTH EVERY DAY SOLD: 10/04/2019 [facility] 50 mg 03/01/2019 12:00:00 AM EDT tablet 90 TAKE ONE TABLET BY MOUTH EVERY DAY TAKE ONE TABLET BY MOUTH EVERY DAY SOLD: 12/27/2019 [facility] BLOOD SUGAR DIAGNOSTIC 03/01/2019 12:00:00 AM EDT strip 350 TEST FOUR TIMES A DAY TEST FOUR TIMES A DAY SOLD: 01/05/2020 [facility] montelukast 10 MG Oral Tablet MONTELUKAST SODIUM 12/17/2018 12:0 0:00 AM EDT tablet 90 TAKE ONE TABLET BY MOUTH EVERY E VENING TAKE ONE TABLET BY MOUTH EVERY EVENING SOLD: 09/27/2019 [facility] 150 mcg 10/27/2018 12:00:00 AM EDT tablet 90 TAKE ONE TABLET BY MOUTH EVERY MORNING ON EMPTY STOMACH TAKE ONE TABLET BY MOUTH EVERY MORNING O N EMPTY STOMACH SOLD: 09/14/2019 [facility] 0.6 mg/0.1 mL (18 mg/3 mL) 10/27/2018 12:00:00 AM EDT pen in jector 27 INJECT 1.8MG UNDER THE SKIN ONCE DAILY INJECT 1.8MG UNDER THE SKIN ONCE DAILY SOLD: 08/16/2019 [facility] 40 mg 10/27/2018 12:00:00 AM EDT tablet 180 TAKE ONE TABLET BY MOUTH TWICE A DAY TAKE ONE TABLET BY MOUTH TWICE A DAY SOLD: 08/08/2019 [facility] 300 mg 10/05/2018 12:00:00 AM EST capsule 270 TAKE ONE CAPSULE BY MOUTH THREE TIMES A DAY TAKE ONE CAPSULE BY MOUTH THREE TIMES A DAY SOLD: 08/08/2019 [facility] Insurance Providers Payer name Policy type / Coverage type Policy ID Covered green party ID Covered green party's relationship to kraft Policy Kraft Plan Information EMEDNY [id number] SP [id number] WELLCARE [id number] SP [id number] WELLCARE [id number] SP [id number] MEDICAID [id number] [place] [id number] 18 [id number] WELLCARE MEDICARE HMO G [id number] Self [id number] MEDICAID M [id number] Self [id number] MEDICARE A [id number] Self [id number] WELLCARE O [id number] S [id number] MEDICAID M [id number] S [id number] MEDICAID [id number] SP [id number] MEDICARE [id number] SP [id number] WELLCARE [id number] SP [id number] WELLCARE O [id number] S [id number] TODAYS OPTIONS [id number] SP [id number] ANS-Health Maintenance Organization ( O) [id number] ANSI-Medicaid [id number] ANSI-Medicaid [id number] [facility] [id number] ANSI-Medicaid [id number] [facility] ( [facility]) [id number] [place] [id number] Self [id number] Wellcare Commercial [id number] Self [id number] Todays Options Medigap Part B [id number] Self [id number] [place] [id number] Self [id number] [place] Medig[place] Part B [id number] Self [id number] Wellcare Commercial [id number] Self [id number] Wellcare Commercial [id number] Self [id number] [place] [id number] Self [id number] Medicare [place] Medicare Primary [id number] Self [id number] Today's Option Commercial [id number] Self [id number] ANSI-Medicaid [id number] ANSI-Health Maintenance Organization ( O) [id number] ANSI-Health Maintenance Organization ( O) [id number] ANSI-Medicaid [id number] Medicare [facility] Part B [id number] Self [id number] Wellcare Commercial [id number] Self [id number] WELLCARE [id number] SP [id number] Medicare [facility] Part B [id number] Self [id number] Wellcare Commercial [id number] Self [id number] ANSI-Medicaid [id number] ANSI-Health Maintenance Organization ( O) [id number] ANSI-Medicaid [id number] ANSI-Health Maintenance Organization ( O) [id number] ANSI-Medicaid [id number] ANSI-Health Maintenance Organization ( O) [id number] ANSI-Health Maintenance Organization ( O) [id number] ANSI-Medicaid [id number] ANSI-Health Maintenance Organization ( O) [id number] ANSI-Medicaid [id number] [place] [id number] Self [id number] [place] Medicare Primary [id number] Self [id number] [place] [id number] Self [id number] Today's Options Medicare Commercial [id number] Self [id number] [place] [id number] Self [id number] [place] [facility] Commercial [id number] Self [id number] [employer] Choice Health Maintenance Organization (HMO) [id number] Family Dependent [id number] [facility] Medicaid [id number] Self [id number] ANSI-Medicaid [id number] ANSI-Medicare Part B [id number] [facility]-Health Maintenance Organization ( O) [id number] ANSI-Medicaid [id number] ANSI-Medicare Part B [id number] [facility]-Health Maintenance Organization ( O) [id number] ANSI-Medicare Part B [id number] [facility]-Health Maintenance Organization ( O) [id number] ANSI-Medicaid [id number] ANSI-Medicaid [id number] ANSI-Medicare Part B [id number] ANSI-Health Maintenance Organization ( O) [id number] ANSI-Medicare Part B [id number] ANSI-Medicaid [id number] ANSI-Health Maintenance Organization ( O) [id number] ANSI-Health Maintenance Organization ( O) [id number] ANSI-Medicaid [id number] ANSI-Medicare Part B [id number] ANSI-Health Maintenance Organization ( O) [id number] ANSI-Medicare Part B [id number] ANSI-Medicaid [id number] ANSI-Health Maintenance Organization ( O) [id number] ANSI-Medicaid [id number] ANSI-Medicare Part B [id number] ANSI-Medicaid [id number] ANSI-Medicare Part B [id number] ANSI-Health Maintenance Organization ( O) [id number] [facility] O [id number] O [id number] TODAYS OPTIONS/SUDANESE O [id number] O [id number] ANSI-Health Maintenance Organization ( O) [id number] ANSI-Medicare Part B [id number] ANSI-Medicaid [id number] ANSI-Medicaid [id number] ANSI-Health Maintenance Organization ( O) [id number] ANSI-Medicare Part B [id number] ANSI-Health Maintenance Organization ( O) [id number] ANSI-Medicaid [id number] ANSI-Medicare Part B [id number] ANSI-Medicaid [id number] ANSI-Medicare Part B [id number] [facility] Commercial [id number] Self [id number] Today's Options Commercial [id number] Self [id number] ANSI-Medicare Part B [id number] ANSI-Medicaid [id number] ANSI-Medicaid [id number] ANSI-Medicare Part B [id number] ANSI-Medicaid [id number] ANSI-Medicare Part B [id number] TODAYS [facility] [id number] ANSI-Medicare Part B [id number] ANSI-Medicaid [id number] ANSI-Medicare Part B [id number] ANSI-Medicaid [id number] [place] [id number] Self [id number] [place] [id number] Self [id number] Medicare [place]/[facility] Medicare Primary [id number] Self [id number] [place] [id number] Self [id number] Today's Options Medicare Commercial [id number] Self [id number] ANSI-Medicaid [id number] ANSI-Medicare Part B [id number] ANSI-Medicare Part B [id number] ANSI-Medicaid [id number] ANSI-Medicare Part B [id number] ANSI-Medicaid [id number] ANSI-Medicaid [id number] ANSI-Medicare Part B [id number] [place] Med[place] Part B [id number] Self [id number] Todays [employer] Commercial [id number] Self [id number] [place] Med[place] Part B [id number] Self [id number] [place] Part B [id number] Self [id number] [place] [id number] Self [id number] [place] [id number] Self [id number] Medicaid [place] Medigap Part B [id number] Self [id number] Medicare [place] Medicare Primary [id number] Self [id number] [place] [id number] Self [id number] [place] [facility] [place] [id number] Self [id number] Today's Options Medicare Commercial [id number] Self [id number] TODAYS OPTIONS [id number] SP [id number] MEDICARE [id number] SP [id number] A [place] [id number] SP [id number] Medicare [place] Medigap Part B [id number] Self [id number] Medicare [place] Medigap Part B [id number] Self [id number] Medicare [place] Medigap Part B [id number] Self [id number] Medicare [place] Medigap Part B [id number] Self [id number] Medicare [place] Medigap Part B [id number] Self [id number] TODAYS OPTIONS [id number] SP [id number] MEDICAID [id number] SP [id number] Todays Options Commercial Self Medicare [place] Medigap Part B Self [facility] Commercial Hmo Self Hmo [place] Medig[place] Part [place] Self Medicare [place] Medigap Part B Self [employer]ays Options Commercial Self TODAYS OPTIONS [id number] SP [id number] [place] Self [place] [facility] [place] Medicaid Self Medicare [place] Medicare Primary Self [place] B Self Today's Options Medicare Commercial Self AMER PROG TODAYS OPTIONS G [id number] Self [id number] MEDICARE UNAVAILABLE SP UNAVAILA BLE [place] MEDICARE [id number] SP [id number] [facility] F [id number] SELF [id number] Todays Options Medicare F [id number] SELF [id number] [place] Medigap Part B Self Today's Option Medicare Commercial Self TODAYS OPTIONS [id number] SP [id number] MEDICARE [id number] SP [id number] B SELFPAY 5 UNAVAILABLE 1 UNAVAILA BLE MEDICAID 3 [id number] 1 [id number] MEDICARE 4 [id number] 1 [id number] B MEDICARE P [id number] S [id number] B MEDICAID REF AMBULAT W UNAVAILABLE UNAVAILABLE [id number] B [id number] W UNAVAILABLE UNAVAILA BLE Problems, Conditions, and Diagnoses Code Display Name Description Problem Type Effective Dates Data Source(s) F33.0 Major depressive disorder, recurrent, mi ld Major Depressive Disorder, Recurrent episode, Mild Condition 07/24/2020 12:00:00 AM EST [facility] ([facility]) F41.9 Anxiety disorder, unspecified Unspecified Anxiety Diso rder Condition 07/24/2020 12:00:00 AM EST [facility] ([facility]) [id number] FH: Thyroid disorder FH: Thyroid disorder Problem 07/22/2020 12:00:00 AM EST [facility] ([facility]) 62877978 Kidney disease Kidney disease Problem 07/22/2020 12:00: 00 AM EST [facility] ([facility]) 79458051 Essential hypertension Essential hypertension Problem 07/22/2020 12:00:00 AM EST [facility] ([facility]) 89819472 Gout Gout Problem 07/22/2020 12:00:00 AM ES T [facility] ([facility]) 082385042 Gastroesophageal reflux disease Gastroesophageal reflux disease Problem 07/22/2020 12:00:00 AM EST [facility] ([facility]) 46040579 Diabetes mellitus Diabetes mellitus Problem 07/22/2020 12:00:00 AM EST [facility] ([facility]) 061891698 Mild depression Mild depression Problem 07/22/2020 12:0 0:00 AM EST [facility] ([facility]) 17110548 Congestive heart failure Congestive heart failure Prob ashvin 07/22/2020 12:00:00 AM EST [facility] ([facility]) 359409182 Cataract Cataract Problem 07/22/2020 12:00:00 AM ES T [facility] ([facility]) 56990181 Chronic bronchitis Chronic bronchitis Problem 12:00:00 AM EST [facility] ([facility]) 263342341 Transfusion of blood product Transfusion of blood prod uct Problem 07/22/2020 12:00:00 AM EST [facility] ([facility]) 758090975 Low back pain Low back pain Problem 07/22/2020 12:00:00 AM EST [facility] ([facility]) 078550168 Asthma Asthma Problem 07/22/2020 12:00:00 AM ES T [facility] ([facility]) 9110956 Arthritis Arthritis Problem 07/22/2020 12:00:00 AM ES T [facility] ([facility]) 45688267 Anxiety Anxiety Problem 07/22/2020 12:00:00 AM ES T [facility] ([facility]) 931859964 Anemia Anemia Problem 07/22/2020 12:00:00 AM ES T [facility] ([facility]) J44.1 960501940 COPD with exacerbation Problem 06/18/2020 12 :00:00 AM EST [facility]CW1 ([facility]) I73.9 163958536 Peripheral vascular disease Problem 09/19/19 12:00:00 AM EST eCW1 ([facility]) I73.9 049824379 Peripheral vascular disease Problem 09/19/19 12:00:00 AM EST eCW1 ([facility]) 52786512 Trifascicular block Trifascicular block Problem 1 09/21/2018 12:00:00 AM EST [facility] ([facility] ) 521869629 Electrocardiogram abnormal Electrocardiogram abnormal Problem 07/21/2019 12:00:00 AM EST [facility] ([facility] ) 8448008 Aortic valve disorder Aortic valve disorder Problem 07/21/2019 12:00:00 AM EST [facility] ([facility] ) 654994972 Abnormal findings diagnostic imaging hea rt+coronary circulat Abnormal findings diagnostic imaging heart+coronary circulat Problem 12:00:00 AM EST [facility] [facility] ) [id number] Electrocardiogram abnormal Electrocardiogram abnormal Problem 07/21/2019 12:00:00 AM EST MEDENT ([facility]) [id number] Trifascicular block Trifascicular block Problem 1 09/21/2018 12:00:00 AM EST MED[facility] ([facility]) [id number] Aortic valve disorder Aortic valve disorder Problem 07/21/2019 12:00:00 AM EST [facility] ([facility]) [id number] Abnormal findings diagnostic imaging hea rt+coronary circulat Abnormal findings diagnostic imaging heart+coronary circulat Problem 12:00:00 AM EST [facility] ([facility]) Surgeries/Procedures Procedure Description Date Indications Data Source(s) OFFICE OUTPATIENT VISIT 15 MINUTES 07/24 12:00:00 AM EST - 07/24/2020 12:00:00 AM EST [facility] ([facility]) OFFICE OUTPATIENT VISIT 15 MINUTES 07/24/2020 12:00:00 AM EST [facility] ([facility]) MHC Telemed E/M Lvl 3--Est pt 05/15/2020 12:00:00 AM EDT - 05/15/2020 12:00:00 AM EDT [facility] ([facility]) MHC Telemed E/M Lvl 3--Est pt 05/15/2020 12:00:00 AM E DT [facility] ([facility]) Mammogram 01/29/2020 12:00:00 AM EDT M EDENT ([facility]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) ARTHROCENTESIS ASPIR&/INJECTION MAJOR JT/BURSA 12:00:00 AM EDT MEDENT ([facility]) X-Ray Hip Unilateral With Pelvis 2-3 Views 01/17/2020 12:00:00 AM EDT MED[facility] ([facility]) MHC Telemed E/M Lvl 3--Est pt 01/11/2020 12:00:00 AM EDT - 01/11/2020 12:00:00 AM EDT [facility] ([facility]) Telemed A/O 30" 01/11/2020 12:00:00 AM EDT [facility] ([facility]) MHC Telemed E/M Lvl 3--Est pt 01/11/2020 12:00:00 AM E DT [facility] ([facility]) Spirometry 12/28/2019 12:00:00 AM EDT M EDENT ([facility]) ESTABILISHED PATIENT [facility] CHARGE 12:00:00 AM EDT eCW1 ([facility]) MHC Telemed E/M Lvl 3--Est pt 11/15/2019 12:00:00 AM EDT - 11/15/2019 12:00:00 AM EDT [facility] ([facility]) MHC Telemed E/M Lvl 3--Est pt 11/15/2019 12:00:00 AM E DT [facility] ([facility]) OFFICE OUTPATIENT VISIT 15 MINUTES 10/04 12:00:00 AM EST - 10/05/2019 12:00:00 AM EST [facility] ([facility]) OFFICE OUTPATIENT VISIT 15 MINUTES 10/05/2019 12:00:00 AM EST [facility] ([facility]) ARTHROCENTESIS ASPIR&/INJECTION MAJOR JT/BURSA 12:00:00 AM EST MED[facility] ([facility] ) Annual wellness visit, includes a person alized prevention plan of service (pps), subsequent visit 09/19/2019 12:00:00 AM EST eCW 1 ([facility]) Office Visit, Est Pt., Level 4 PC 09/19/2019 12:00:00 AM EST eCW1 ([facility]) Office Visit, Est Pt., Level 2 FC 09/19/2019 12:00:00 AM EST eCW1 ([facility]) INJECTION 1 TENDON SHEATH/LIGAMENT APONEUROSIS 12:00:00 AM EST MED[facility] ([facility] ) PARING/CUTTING BENIGN HYPERKERATOTIC LESION 2-4 2019 12:00:00 AM EST [facility] ([facility] DEBRIDEMENT NAIL ANY METHOD 6/> 08/21/2019 12:00:00 AM EST [facility] ([facility]) REVSC OPN/PRQ TIB/SHANEKA W/ANGIOPLASTY UNI 08/15/2019 12 :00:00 AM EST MEDENT ([facility], ) REVSC OPN/PRQ TIB/SHANEKA W/ANGIOPLASTY UNI EA VSL 2019 12:00:00 AM EST MEDENT ([facility], ) Angiography Extremity Unilateral 08/15/2019 12:00:00 A M EST MEDENT ([facility], ) Angiography Selective, Each Addtl Vessel Studied After Exam 08/15/2019 12:00:00 AM EST MEDENT ([facility], ) Moderate Sedation Services; Same Phys Intl 15 Mins; PT >= 5 Years 08/15/2019 12:00:00 AM EST MED[facility] ([facility]) OFFICE OUTPATIENT VISIT 15 MINUTES 08/10 12:00:00 AM EST - 08/10/2019 12:00:00 AM EST [facility] ([facility]) OFFICE OUTPATIENT VISIT 15 MINUTES 08/10/2019 12:00:00 AM EST [facility] ([facility]) ECG ROUTINE ECG W/LEAST 12 LDS W/I&R 07/21/2019 12:00: 00 AM EST [facility] ([facility]) Arterial Pressure Waveform Analysis For Assessment Of Centra l Art 07/21/2019 12:00:00 AM EST [facility] ([facility]) Results ID Date Data Source [id number] 09/05/2020 12:00:00 AM EST [facility] Name Value Range Interpretation Code Description Data Britney rce(s) Supporting Document(s) SARS-CoV2 Rapid Antigen Negative [facility] This lab was reported by [facility] re. ID Date Data Source [id number] 04/17/2020 12:00:00 PM EDT [facility] Name Value Range Interpretation Code Description Data Britney rce(s) Supporting Document(s) SARS coronavirus 2 RNA [facility] This lab was ordered by [facility] and reported by [facility]. ID Date Data Source [id number] 01/05/2020 11:10:00 AM EDT [facility] Name Value Range Interpretation Code Description Data Britney rce(s) Supporting Document(s) SARS CORONAVIRUS 2 RNA [facility] This lab was ordered by [facility] and reported by [facility]. ID Date Data Source [id number] 12/28/2019 01:13:00 PM EDT MEDENT ([facility], ) Name Value Range Interpretation Code Description Data Britney rce(s) Supporting Document(s) PDFReport Laboratory test result MEDENT ([facility], ) FVC-Pred 2.34 L MEDENT ([facility], ) FVC-Pre 1.70 L MED[facility] ([facility], ) Fev1-Pred 1.74 L MED[facility] ([facility], ) FVC-LLN 1.73 L MED[facility] ([facility], ) FVC-%Pred-Pre 72 L MEDENT ([facility], ) Fev1-Pre 1.37 L MED[facility] ([facility]) Fev1-LLN 1.23 L [facility] ([facility]) Fev1-%Pred-Pre 78 L [facility] ([facility], ) Fev6-Pre 1.70 L MED[facility] ([facility], ) Fev6-Pred 2.21 L [facility] ([facility]) Fev6-%Pred-Pre 76 L MEDENT ([facility]) Rsx7hcq-Eqwp 75 % MED[facility] ([facility]) Fev6-LLN 1.62 L [facility] ([facility]) Hxo6cbw-Www 81 % [facility] ([facility]) Ztr6msz-XFX 65 % [facility] ([facility]) Lgk2cms-%Pred-Pre 107 % MED[facility] ([facility]) Bed9uaw-Hgth 95 % [facility] ([facility]) Hag6hsu-Atw 100 % [facility] ([facility]) FEFMax-Pred 4.65 L/E/sec MED[facility] ([facility]) Lev1zvz-%Pred-Pre 105 % [facility] ([facility]) FEFMax-%Pred-Pre 82 L/E/sec MED[facility] ([facility]) FEFMax-Pre 3.82 L/E/sec [facility]) FEFMax-LLN 3.14 L/E/sec [facility] ([facility]) Pvx3905-Jgdr 1.44 L/E/sec MED[facility] ([facility]) Hwh0216-Fup 1.38 L/E/sec MED[facility] ([facility]) Fve6339-%Pred-Pre 96 L/E/sec MEDENT ([facility]) ExpTime-Pre 6.20 sec MED[facility] ([facility]) Jys9634-FAC 0.35 L/E/sec MED[facility] ([facility], ) Jcd6lxu1-Fnjz 78 % [facility] ([facility]) Pdq8rux7-Vmr 81 % [facility] ([facility]) Bmq8jke0-RDL 70 % [facility] ([facility]) Dmk7owr2-%Pred-Pre 102 % [facility] ([facility]) ID Date Data Source [id number] 12/19/2019 09:30:00 AM EDT [facility] Name Value Range Interpretation Code Description Data Britney rce(s) Supporting Document(s) SARS CORONAVIRUS 2 RNA [facility] This lab was ordered by [facility] and reported by [facility]. ID Date Data Source [id number] 08/15/2019 06:45:00 AM EST MED[facility] ([facility]) Name Value Range Interpretation Code Description Data Britney rce(s) Supporting Document(s) Glucose, Fasting 119 mg/dL 70-100 Above high normal M EDENT ([facility]) Creatinine For GFR 1.35 mg/dL 0.55-1.30 Above high normal MED[facility] ([facility]) Glomerular Filtration Rate 40.8 Normal (applies to n on-numeric results) [facility] ([facility]) <content>Units are mL/min/1.73 m2</content>
<content></content>
<content>Chronic Kidney Disease Staging per NKF:</content>
<content></content>
<content>Stage I & II GFR >=60 Normal to Mildly Decreased</content>
<content>Stage III GFR 30- 59 Moderately Decreased</content>
<content>Stage IV GFR 15-29 Severely Decreased</content>
<content>Stage V GFR <15 Very Little GFR Left</content>
<content>ESRD GFR <15 on [employer]</content>
<content></content> Blood Urea Nitrogen 25 mg/dL 7-18 Above high normal MED[facility] ([facility]) Potassium Serum 3.8 meq/L 3.5-5.1 Normal (applies to non-numeric results) [facility] Sodium Level 143 meq/L 136-145 Normal (applies to non-numeric res ults) [facility] ([facility]) Carbon Dioxide Level 30 meq/L 21-32 Normal (applies to non-num vaishali results) [facility] Chloride Level 105 meq/L 98-107 Normal (applies to non-numeric r esults) [facility] Anion Gap 8 meq/L 8-16 Normal (applies to non-numeric resul ts) [facility]) Calcium Level 9.0 mg/dL 8.8-10.2 Normal (applies to non-numeric re sults) [facility] ([facility]) Ast/Sgot 9 U/L 7-37 Normal (applies to non-numeric resul ts) [facility] ([facility]) Alt/SGPT 8 U/L 12-78 Below low normal [facility] ([facility]) Alkaline Phosphatase 103 U/L 45-117 Normal (applies to non-num vaishali results) [facility] ([facility]) Total Protein 6.0 GM/DL 6.4-8.2 Below low normal MEDEN T ([facility]) Bilirubin,Total 0.3 mg/dL 0.2-1.0 Normal (applies to non-numeric results) [facility] ([facility]) Albumin/Globulin Ratio 1.07 1.00-1.93 Normal (applies to non-numeric results) [facility] ([facility]) Albumin 3.1 GM/DL 3.2-5.2 Below low normal [facility] ( [facility]) ID Date Data Source [id number] 08/15/2019 06:45:00 AM EST [facility] ([facility]) Name Value Range Interpretation Code Description Data Britney rce(s) Supporting Document(s) White Blood Count 10.0 10 4.0-10.0 Normal (applies to non-numeri c results) [facility] ([facility]) Red Blood Count 3.28 10 4.00-5.40 Below low normal [facility] ([facility]) Hematocrit 30.3 % 36.0-47.0 Below low normal [facility] ( [facility]) Hemoglobin 9.3 g/dL 12.0-15.5 Below low normal [facility] ( [facility]) Mean Corpuscular HGB Conc 30.7 g/dL 32.0-36.5 Below low normal [facility] ([facility]) Mean Corpuscular Hemoglobin 28.4 pg 27.0-33.0 Norm al (applies to non-numeric results) [facility] ([facility]) Mean Corpuscular Volume 92.4 fl 80.0-96.0 Normal ( applies to non-numeric results) [facility] ([facility]) Red Cell Distribution Width 14.2 % 11.5-14.5 Norm al (applies to non-numeric results) [facility] ([facility]) Platelet Count, Automated 239 10 150-450 Normal (applies to non-numeric results) [facility] ([facility]) Nucleated Red Blood Cell % 0.0 % 0-0 Normal (applies to n on-numeric results) [facility] ([facility]) ID Date Data Source [id number] 07/19/2019 03:46:00 PM EST [facility] ([facility]) Name Value Range Interpretation Code Description Data Britney rce(s) Supporting Document(s) Glucose 153 70-100 [facility] ([facility]) Blood Urea Nitrogen 22 7-18 [facility] ([facility]) Creatinine 1.47 0.55-1.30 [facility] ([facility]) Sodium 142 136-145 [facility] Potassium 4.1 3.5-5.1 [facility] ([facility] Carbon Dioxide 30 21-32 [facility] ([facility]) Chloride 105 98-107 [facility] ([facility]) Glomerular filtration rate/1.73 sq M.pre dicted [Volume Rate/Area] in Serum or Plasma by Creatinine-based formula (MDRD) 37.0 MED[facility] ([facility]) Calcium 8.1 8.8-10.2 [facility] ([facility] ID Date Data Source [id number] 07/19/2019 03:46:00 PM EST [facility] ([facility]) Name Value Range Interpretation Code Description Data Britney rce(s) Supporting Document(s) White Blood Count 8.2 4.0-10.0 [facility] ([facility]) Hematocrit 29.1 MED[facility] ([facility]) Red Blood Count 3.10 4.00-5.40 [facility] ([facility]) Platelets 292 150-450 [facility] Hemoglobin 8.7 [facility] ([facility]) ID Date Data Source [id number] 07/19/2019 10:58:00 AM EST MED[facility] ([facility]) Name Value Range Interpretation Code Description Data Britney rce(s) Supporting Document(s) Red Blood Count 3.10 10 4.00-5.40 Below low normal [facility] ([facility]) White Blood Count 8.2 10 4.0-10.0 Normal (applies to non-numeri c results) [facility] ([facility]) Hematocrit 29.1 % 36.0-47.0 Below low normal [facility] ( [facility]) Mean Corpuscular Volume 93.9 fl 80.0-96.0 Normal ( applies to non-numeric results) [facility] ([facility]) Hemoglobin 8.7 g/dL 12.0-15.5 Below low normal [facility] ( [facility]) Mean Corpuscular Hemoglobin 28.1 pg 27.0-33.0 Norm al (applies to non-numeric results) [facility] ([facility]) Red Cell Distribution Width 14.9 % 11.5-14.5 Above high normal [facility]) Mean Corpuscular HGB Conc 29.9 g/dL 32.0-36.5 Below low normal [facility]) Platelet Count, Automated 292 10 150-450 Normal (applies to non-numeric results) [facility] ([facility]) Nucleated Red Blood Cell % 0.0 % 0-0 Normal (applies to n on-numeric results) [facility] ([facility]) ID Date Data Source [id number] 07/19/2019 10:58:00 AM EST [facility] ([facility]) Name Value Range Interpretation Code Description Data Britney rce(s) Supporting Document(s) Glucose, Fasting 153 mg/dL 70-100 Above high normal [facility] Blood Urea Nitrogen 22 mg/dL 7-18 Above high normal [facility] ([facility]) Creatinine For GFR 1.47 mg/dL 0.55-1.30 Above high normal [facility] ([facility]) Glomerular Filtration Rate 37.0 Below low normal [facility] ([facility]) <content>Units are mL/min/1.73 m2</content>
<content></content>
<content>Chronic Kidney Disease Staging per NKF:</content>
<content></content>
<content>Stage I & II GFR >=60 Normal to Mildly Decreased</content>
<content>Stage III GFR 30-59 Moderately Decreased</content>
<content>Stage IV GFR 15-29 Severely Decreased</content>
<content>Stage V GFR <15 Very Little GFR Left</content>
<content>ESRD GFR <15 on [employer]</content>
<content></content> Sodium Level 142 meq/L 136-145 Normal (applies to non-numeric res ults) [facility] ([facility]) Chloride Level 105 meq/L 98-107 Normal (applies to non-numeric r esults) [facility] ([facility]) Potassium Serum 4.1 meq/L 3.5-5.1 Normal (applies to non-numeric results) [facility] ([facility]) Carbon Dioxide Level 30 meq/L 21-32 Normal (applies to non-num vaishali results) [facility] ([facility] ) Anion Gap 7 meq/L 8-16 Below low normal [facility] ( [facility]) Calcium Level 8.1 mg/dL 8.8-10.2 Below low normal MEDEN T ([facility]) Procedure Social History Code Duration Value Status Description Data Source(s ) Smoking 08/18/2020 12:00:00 AM EST Former Smoker completed Former Smoker eCW1 ([facility]) Smoking 08/18/2020 12:00:00 AM EST Former Smoker completed Former Smoker eCW1 ([facility]) Smoking 07/24/2020 12:00:00 AM EST Unknown if ever smoked comp leted Unknown if ever smoked [facility] ([facility]) Smoking 07/22/2020 12:00:00 AM EST Patient is a former smoker completed Patient is a former smoker MEDENT ([facility]) Smoking 07/01/2020 12:00:00 AM EST Non-Smoker, Non-Drink er, Non-Drug User completed Non-Smoker, Non-Drinker, Non-Drug User 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) Smoking 06/18/2020 12:00:00 AM EST Former Smoker completed Former Smoker eCW1 ([facility]) Smoking 06/18/2020 12:00:00 AM EST Former Smoker completed Former Smoker eCW1 ([facility]) Smoking 06/18/2020 12:00:00 AM EST Former Smoker completed Former Smoker eCW1 ([facility]) Smoking 06/18/2020 12:00:00 AM EST Former Smoker completed Former Smoker eCW1 ([facility]) Smoking 06/18/2020 12:00:00 AM EST Former Smoker completed Former Smoker eCW1 ([facility]) Smoking 06/18/2020 12:00:00 AM EST Former Smoker completed Former Smoker eCW1 ([facility]) Smoking 06/18/2020 12:00:00 AM EST Former Smoker completed Former Smoker eCW1 ([facility]) Smoking 05/15/2020 12:00:00 AM EDT Unknown if ever smoked comp leted Unknown if ever smoked [facility] ([facility]) Smoking 05/08/2020 12:00:00 AM EDT Former Smoker completed Former Smoker eCW1 ([facility]) Smoking 05/08/2020 12:00:00 AM EDT Former Smoker completed Former Smoker eCW1 ([facility]) Smoking 05/08/2020 12:00:00 AM EDT Former Smoker completed Former Smoker eCW1 ([facility]) Smoking 04/01/2020 12:00:00 AM EDT Patient is a former smoker completed Patient is a former smoker MED[facility] ([facility], ) Smoking 01/24/2020 12:00:00 AM EDT Former Smoker completed Former Smoker eCW1 ([facility]) Smoking 01/24/2020 12:00:00 AM EDT Former Smoker completed Former Smoker eCW1 ([facility]) Smoking 01/24/2020 12:00:00 AM EDT Former Smoker completed Former Smoker eCW1 ([facility]) Smoking 01/23/2020 12:00:00 AM EDT Former Smoker completed Former Smoker eCW1 ([facility]) Smoking 01/11/2020 12:00:00 AM EDT Unknown if ever smoked comp leted Unknown if ever smoked [facility] ([facility]) Smoking 01/08/2020 12:00:00 AM EDT Former Smoker completed Former Smoker eCW1 ([facility]) Smoking 01/08/2020 12:00:00 AM EDT Former Smoker completed Former Smoker eCW1 ([facility]) Smoking 11/15/2019 12:00:00 AM EDT Unknown if ever smoked comp leted Unknown if ever smoked [facility] ([facility]) Smoking 10/05/2019 12:00:00 AM EST Unknown if ever smoked comp leted Unknown if ever smoked [facility] ([facility]) Smoking 08/10/2019 12:00:00 AM EST Unknown if ever smoked comp leted Unknown if ever smoked [facility] ([facility]) Vital Signs ID Date Data Source UNK Name Value Range Interpretation Code Description Data Source(s) Body mass index (BMI) [Ratio] 38.7 kg/m2 38.7 k g/m2 MEDENT ([facility], [facility]) Body height 61 [in_i] 61 [in_i] MEDENT ([facility], [facility]) 5'1" Body weight 205.00 [lb_av] 205.00 [lb_av] MEDEN T ([facility], [facility]) Body temperature 98.5 [degF] 98.5 [degF] MEDENT ([facility], [facility]) Oxygen saturation in Arterial blood by Pulse oximetry 98 % 98 % MEDENT ([facility], [facility]) Respiratory rate 16 /min 16 /min MEDENT ( [facility], [facility]) Heart rate 66 /min 66 /min MEDENT ([facility], [facility]) Diastolic blood pressure 78 mm[Hg] 78 mm[Hg] [facility], [facility]) Systolic blood pressure 130 mm[Hg] 130 mm[Hg] [facility], [facility]) Diastolic blood pressure 0 mm[Hg] Normal (applies to non-numeric results) 0 [facility]Hg] [facility] Systolic blood pressure 0 mm[Hg] Normal (applies t o non-numeric results) 0 mm[Hg] [facility] ([facility]) Body mass index (BMI) [Ratio] 0.00 kg/m2 No rmal (applies to non-numeric results) 0.00 kg/m2 [facility] ([facility]) Body weight Measured 0.00 lbs Normal (applies to n on-numeric results) 0.00 lbs [facility] ([facility]) Body height 0.00 in Normal (applies to non-numeric resu lts) 0.00 in [facility] ([facility]) Oxygen saturation in Arterial blood by Pulse oximetry 94 % 94 % MED[facility] ([facility]) Respiratory rate 20 /min 20 /min MED[facility] ( [facility]) Heart rate 84 /min 84 /min [facility] ([facility]) Diastolic blood pressure 68 mm[Hg] 68 mm[Hg] MED[facility] ([facility]) Systolic blood pressure 127 mm[Hg] 127 mm[Hg] M ED[facility] ([facility]) Body surface area Derived from formula 1.85 m2 1.85 m2 MED[facility] ([facility]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) Body mass index (BMI) [Ratio] 42.1 kg/m2 42.1 k g/m2 [facility] ([facility]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) Body weight 205.00 [lb_av] 205.00 [lb_av] MED[facility] T ([facility]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) Body height 58.5 [in_i] 58.5 [in_i] [facility] ([facility]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) 4'10.50" Diastolic blood pressure 56 mm[Hg] 56 mm[Hg] MEDENT (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) Systolic blood pressure 148 mm[Hg] 148 mm[Hg] M EDENT (Frank 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) Diastolic blood pressure 58 mm[Hg] 58 mm[Hg] eCW1 ([facility]) Systolic blood pressure 128 mm[Hg] 128 mm[Hg] e CW1 ([facility]) Body temperature 97 [degF] 97 [degF] eCW1 ([facility]) Respiratory rate 18 /min 18 /min eCW1 ([facility]) Heart rate 94 /min 94 /min eCW1 ([facility]) Body mass index (BMI) [Ratio] 38.22 kg/m2 38.22 kg/m2 W1 ([facility]) Body height 62 [in_i] 62 [in_i] eCW1 ([facility]) Body weight 209 [lb_av] 209 [lb_av] eCW1 ([facility]) Diastolic blood pressure 0 mm[Hg] Normal (applies to non-numeric results) 0 mm[Hg] Accumedic ([facility]) Systolic blood pressure 0 mm[Hg] Normal (applies t o non-numeric results) 0 mm[Hg] Accumedic ([facility]) Body mass index (BMI) [Ratio] 0.00 kg/m2 No rmal (applies to non-numeric results) 0.00 kg/m2 Accumedic ([facility]) Body weight Measured 0.00 lbs Normal (applies to n on-numeric results) 0.00 lbs Accumedic ([facility]) Body height 0.00 in Normal (applies to non-numeric resu lts) 0.00 in Accumedic ([facility]) Diastolic blood pressure 65 mm[Hg] 65 mm[Hg] eCW1 ([facility]) Systolic blood pressure 152 mm[Hg] 152 mm[Hg] e CW1 ([facility]) Body temperature 97.1 [degF] 97.1 [degF] eCW1 ( [facility]) Respiratory rate 18 /min 18 /min eCW1 ([facility]) Heart rate 102 /min 102 /min eCW1 ([facility]) Body mass index (BMI) [Ratio] 38.37 kg/m2 38.37 kg/m2 W1 ([facility]) Body height 62 [in_i] 62 [in_i] eCW1 ([facility]) Body weight 209.8 [lb_av] 209.8 [lb_av] eCW1 ([facility]) Body weight 96.163 kg 96.163 kg MEDENT ([facility], ) Body mass index (BMI) [Ratio] 41.4 kg/m2 41.4 k g/m2 [facility] ([facility], ) Body weight 212.00 [lb_av] 212.00 [lb_av] MEDEN T ([facility], ) Body height 60 [in_i] 60 [in_i] MEDENT ([facility], ) 5'0" Diastolic blood pressure 60 mm[Hg] 60 mm[Hg] MEDENT ([facility], ) Systolic blood pressure 104 mm[Hg] 104 mm[Hg] M EDENT ([facility], ) Diastolic blood pressure 0 mm[Hg] Normal (applies to non-numeric results) 0 mm[Hg] Accumedic ([facility]) Systolic blood pressure 0 mm[Hg] Normal (applies t o non-numeric results) 0 mm[Hg] [facility]umedic ([facility]) Body mass index (BMI) [Ratio] 0.00 kg/m2 No rmal (applies to non-numeric results) 0.00 kg/m2 Accumed[facility] ([facility]) Body weight Measured 0.00 lbs Normal (applies to n on-numeric results) 0.00 lbs Accumed[facility] ([facility]) Body height 0.00 in Normal (applies to non-numeric resu lts) 0.00 in [facility] ([facility]) Diastolic blood pressure 72 mm[Hg] 72 mm[Hg] eCW1 ([facility]) Systolic blood pressure 165 mm[Hg] 165 mm[Hg] e CW1 ([facility]) Body temperature 97.4 [degF] 97.4 [degF] eCW1 ( [facility]) Respiratory rate 18 /min 18 /min eCW1 ([facility]) Heart rate 82 /min 82 /min eCW1 ([facility]) Body mass index (BMI) [Ratio] 39.98 kg/m2 39.98 kg/m2 W1 ([facility]) Body height 62 [in_i] 62 [in_i] eCW1 ([facility]) Body weight 218.6 [lb_av] 218.6 [lb_av] eCW1 ([facility]) Systolic blood pressure 114 mm[Hg] 114 mm[Hg] M EDENT ([facility], ) Body weight 98.431 kg 98.431 kg [facility] ([facility]) Body mass index (BMI) [Ratio] 42.4 kg/m2 42.4 k g/m2 [facility] ([facility]) Body weight 217.00 [lb_av] 217.00 [lb_av] MEDEN T ([facility]) Body height 60 [in_i] 60 [in_i] [facility] ([facility]) 5'0" Body temperature 99.1 [degF] 99.1 [degF] [facility] ([facility]) Oxygen saturation in Arterial blood by Pulse oximetry 92 % 92 % [facility] ([facility], ) Room Air Heart rate 104 /min 104 /min [facility] ([facility]) Diastolic blood pressure 68 mm[Hg] 68 mm[Hg] MEDENT ([facility]) Diastolic blood pressure 60 mm[Hg] 60 mm[Hg] eCW1 ([facility]) Systolic blood pressure 143 mm[Hg] 143 mm[Hg] e CW1 ([facility]) Body temperature 96.5 [degF] 96.5 [degF] eCW1 ( [facility]) Respiratory rate 18 /min 18 /min eCW1 ([facility]) Heart rate 92 /min 92 /min eCW1 ([facility]) Body mass index (BMI) [Ratio] 40.34 kg/m2 40.34 kg/m2 eCW1 ([facility]) Body height 62 [in_us] 62 [in_us] eCW1 ([facility]) Body weight Measured 220.6 [lb_av] 220.6 [lb_av ] eCW1 ([facility]) Diastolic blood pressure 0 mm[Hg] Normal (applies to non-numeric results) 0 mm[Hg] Accumedic ([facility]) Systolic blood pressure 0 mm[Hg] Normal (applies t o non-numeric results) 0 mm[Hg] [facility] ([facility]) Body mass index (BMI) [Ratio] 0.00 kg/m2 No rmal (applies to non-numeric results) 0.00 kg/m2 [facility] Body weight Measured 0.00 lbs Normal (applies to n on-numeric results) 0.00 lbs [facility] ([facility]) Body height 0.00 in Normal (applies to non-numeric resu lts) 0.00 in [facility] ([facility]) Diastolic blood pressure 0 mm[Hg] Normal (applies to non-numeric results) 0 mm[Hg] [facility] ([facility]) Systolic blood pressure 0 mm[Hg] Normal (applies t o non-numeric results) 0 mm[Hg] [facility] Body mass index (BMI) [Ratio] 0.00 kg/m2 No rmal (applies to non-numeric results) 0.00 kg/m2 [facility] ([facility]) Body weight Measured 212.00 lbs Normal (applies to n on-numeric results) 212.00 lbs [facility] ([facility]) Body height 0.00 in Normal (applies to non-numeric resu lts) 0.00 in [facility]umed[facility] ([facility]) Body weight 97.070 kg 97.070 kg [facility] ([facility], ) Body mass index (BMI) [Ratio] 41.8 kg/m2 41.8 k g/m2 [facility] ([facility], ) Body weight 214.00 [lb_av] 214.00 [lb_av] MEDEN T ([facility], ) Body height 60 [in_i] 60 [in_i] [facility] ([facility], ) 5'0" Diastolic blood pressure 62 mm[Hg] 62 mm[Hg] [facility] ([facility], ) Systolic blood pressure 122 mm[Hg] 122 mm[Hg] M EDENT ([facility], ) Diastolic blood pressure 64 mm[Hg] 64 mm[Hg] eCW1 ([facility]) Systolic blood pressure 116 mm[Hg] 116 mm[Hg] e CW1 ([facility]) Body temperature 97.5 [degF] 97.5 [degF] eCW1 ( [facility]) Respiratory rate 18 /min 18 /min eCW1 ([facility]) Heart rate 85 /min 85 /min eCW1 ([facility]) Body mass index (BMI) [Ratio] 39.06 kg/m2 39.06 kg/m2 eCW1 ([facility]) Body height 62 [in_us] 62 [in_us] eCW1 ([facility]) Body weight Measured 213.6 [lb_av] 213.6 [lb_av ] eCW1 ([facility]) Body mass index (BMI) [Ratio] 42.0 kg/m2 42.0 k g/m2 [facility] Body weight 215.00 [lb_av] 215.00 [lb_av] MEDEN T ([facility]) Body height 60 [in_i] 60 [in_i] MEDENT ([facility] ) 5'0" Body temperature 97.9 [degF] 97.9 [degF] MEDENT ([facility]) Diastolic blood pressure 0 mm[Hg] Normal (applies to non-numeric results) 0 mm[Hg] [facility]umed[facility] ([facility]) Systolic blood pressure 0 mm[Hg] Normal (applies t o non-numeric results) 0 mm[Hg] [facility] ([facility]) Body mass index (BMI) [Ratio] 0.00 kg/m2 No rmal (applies to non-numeric results) 0.00 kg/m2 [facility] ([facility]) Body weight Measured 0.00 lbs Normal (applies to n on-numeric results) 0.00 lbs [facility] ([facility]) Body height 0.00 in Normal (applies to non-numeric resu lts) 0.00 in [facility] ([facility]) Diastolic blood pressure--sitting 81 mm[Hg] 81 mm[Hg] MEDENT ([facility]) CBP adult cuff, Ra Systolic blood pressure--sitting 154 mm[Hg] 154 mm[Hg] MEDENT ([facility]) CBP adult cuff, Ra Heart rate 80 /min 80 /min [facility] ([facility] Body mass index (BMI) [Ratio] 42.6 kg/m2 42.6 k g/m2 MEDENT ([facility]) Body height 60 [in_i] 60 [in_i] MED[facility] ([facility] 5'0" Body weight 218.00 [lb_av] 218.00 [lb_av] MEDEN T ([facility]) Patient Treatment Plan of Care Planned Activity Planned Date Details Description Data Source (s) doxycycline hyclate 100 MG Oral Capsule 06/18/2020 12:00:00 AM EST eCW1 ([facility]) Prednisone 10 MG Oral Tablet 06/18/2020 12:00:00 AM EST eCW1 ([facility]) doxycycline hyclate 100 MG Oral Capsule 06/18/2020 12:00:00 AM EST eCW1 ([facility]) Prednisone 10 MG Oral Tablet 06/18/2020 12:00:00 AM EST eCW1 ([facility]) doxycycline hyclate 100 MG Oral Capsule 06/18/2020 12:00:00 AM EST eCW1 ([facility]) Prednisone 10 MG Oral Tablet 06/18/2020 12:00:00 AM EST eCW1 ([facility]) doxycycline hyclate 100 MG Oral Capsule 06/18/2020 12:00:00 AM EST eCW1 ([facility]) doxycycline hyclate 100 MG Oral Capsule 06/18/2020 12:00:00 AM EST eCW1 ([facility]) Prednisone 10 MG Oral Tablet 06/18/2020 12:00:00 AM EST eCW1 ([facility]) doxycycline hyclate 100 MG Oral Capsule 06/18/2020 12:00:00 AM EST eCW1 ([facility]) Prednisone 10 MG Oral Tablet 06/18/2020 12:00:00 AM EST eCW1 ([facility]) Prednisone 10 MG Oral Tablet 06/18/2020 12:00:00 AM EST eCW1 ([facility]) Prednisone 10 MG Oral Tablet 06/18/2020 12:00:00 AM EST eCW1 ([facility]) doxycycline hyclate 100 MG Oral Capsule 06/18/2020 12:00:00 AM EST eCW1 ([facility]) Prednisone 10 MG Oral Tablet 06/18/2020 12:00:00 AM EST eCW1 ([facility]) doxycycline hyclate 100 MG Oral Capsule 06/18/2020 12:00:00 AM EST eCW1 ([facility]) Prednisone 10 MG Oral Tablet 06/18/2020 12:00:00 AM EST eCW1 ([facility]) doxycycline hyclate 100 MG Oral Capsule 06/18/2020 12:00:00 AM EST eCW1 ([facility]) Senna 8.6 MG 02/21/2020 12:00:00 AM EDT e CW1 ([facility]) Senna 8.6 MG 02/21/2020 12:00:00 AM EDT e CW1 ([facility]) Zofran ODT 4 MG 01/24/2020 12:00:00 AM EDT eCW1 ([facility]) Zofran ODT 4 MG 01/24/2020 12:00:00 AM EDT eCW1 ([facility]) Zofran ODT 4 MG 01/24/2020 12:00:00 AM EDT eCW1 ([facility]) Hospital bed 09/19/2019 12:00:00 AM EST e CW1 ([facility])
[2020-09-15 14:47] LABS: ALBUMIN 2.7 GM/DL (3.2-5.2); ALT/SGPT 12 U/L (12-78); BILIRUBIN,DIRECT < 0.1 MG/DL (0.0-0.2); BILIRUBIN,TOTAL 0.4 MG/DL (0.2-1.0); BLOOD UREA NITROGEN 30 MG/DL (7-18); CALCIUM LEVEL 8.8 MG/DL (8.8-10.2); CARBON DIOXIDE LEVEL 32 MEQ/L (21-32); CHLORIDE LEVEL 104 MEQ/L (98-107); CK-MB VALUE MASS < 1.0 NG/ML (<3.6); CPK CREATINE PHOSPHOKINASE 118 U/L (26-192); CREATININE FOR GFR 1.34 MG/DL (0.55-1.30); GLOMERULAR FILTRATION RATE 40.9 (>39); GLUCOSE, FASTING 86 MG/DL (70-100); LIPASE 313 U/L (73-393); MB/CK RELATIVE INDEX 0.85 (< OR =4); POTASSIUM SERUM 4.1 MEQ/L (3.5-5.1); SODIUM LEVEL 142 MEQ/L (136-145); TOTAL PROTEIN 5.9 GM/DL (6.4-8.2); TROPONIN I < 0.02 NG/ML (< 0.10)
[2020-09-15] MEDS: GASTROGRAFIN SOLUTION 30ML PO SCH ×2 (15:27→15:56)
[2020-09-15] MEDS ORDERED: ISOVUE-370 76% 100ML VIAL As Ordered ONE (16:51)
--- NOTE | 2020-09-15 17:18 | REP ---
INDICATION: r/o SBO. COMPARISON: Comparison CT study May 23, 2016.. TECHNIQUE: Oral contrast was administered. 100 mL of intravenous Isovue 370 is given and helical scanning is acquired. 3 mm axial images are generated. Coronal and sagittal MPR images are provided. FINDINGS: Preliminary digital paste worker radiograph demonstrates prosthetic hips bilaterally and clips in the right upper quadrant. Bowel gas pattern is unremarkable. The uppermost a slice in the imaging field of view demonstrates an ill-defined incompletely visualized opacity in the left lower lobe. It is unclear whether this is an infiltrate or a nodular opacity. It is approximately 1.8 cm. I suspect an infiltrate as there are subtle peribronchovascular changes just below it. Lung bases are otherwise clear. The liver and the spleen are normal in size homogeneous in texture. No adrenal lesion is seen. No abnormality is noted in the pancreas. The gallbladder is surgically absent. Common bile duct is not dilated. No intrahepatic ductal dilation is observed. There are scattered cortical cysts on each kidney. The largest on the left is at the upper pole measuring 2.1 cm. There is a peripheral cyst in the lower pole the right kidney measuring 3.3 cm. This appears slightly larger than on the prior study but otherwise unchanged. No hydronephrosis is seen. No retroperitoneal mass or adenopathy is seen. Normal caliber aorta. Urinary bladder appears intact. There is some spray artifact across the pelvis from the hip prostheses. There is diverticulosis affecting the sigmoid colon without CT evidence of diverticulitis. Normal appendix is noted in the right lower abdomen. No pelvic mass or adenopathy is seen. No evidence of gastrointestinal tract obstruction. No abdominal wall defect is seen. Small and large bowel loops are normal in caliber. There are 2 or 3 calcifications in the right ovary no mass or cyst is observed. Left ovary is unremarkable. The uterus is surgically absent. IMPRESSION: 1. Status post cholecystectomy and hysterectomy. 2. Left colonic diverticulosis without CT evidence of diverticulitis. 3. Bilateral renal cysts. 4. Subtle opacity at the top of the imaging field of view in the left lower lobe of the lung, incompletely included in the scan range. Suspect infiltrate. 5. No evidence of bowel obstruction. Normal appendix. <Electronically signed by Froy Mohr > 09/15/20 [id number]
--- NOTE | 2020-09-15 18:24 | REPVR ---
PROCEDURE INFORMATION: Exam: CT Chest Without Contrast; Diagnostic Exam date and time: 09/15/2020 6:12 PM Age: 75 years old Clinical indication: Abnormal findings; Abnormal radiologic exam of lung or chest; Additional info: ? Left pneumonia on CT abd TECHNIQUE: Imaging protocol: Diagnostic computed tomography of the chest without contrast. 3D rendering (Not supervised by radiologist): MIP and/or 3D reconstructed images were created by the technologist. Radiation optimization: All CT scans at this facility use at least one of these dose optimization techniques: automated exposure control; mA and/or kV adjustment per patient size (includes targeted exams where dose is matched to clinical indication); or iterative reconstruction. COMPARISON: OK Chest, 1 view 09/15/2020 1:49 PM FINDINGS: Lungs: 1 x 1.4 x 1.5 cm stellate opacity in the superior segment of the left lower lobe surrounded by patchy ground-glass densities. Pleural spaces: Unremarkable. No pneumothorax. No pleural effusion. Heart: There is moderate atherosclerotic calcification of the coronary arteries. Calcifications in the mitral valve annulus. Aorta: There is mild atherosclerosis in the thoracic aorta. Lymph nodes: Unremarkable. No enlarged lymph nodes. Liver: There is enlargement of the left and caudate lobes of the liver as well as a lobular surface contour of the liver. Findings may indicate the presence of cirrhosis in this patient with no reported history of chronic liver disease. No focal abnormality demonstrated. Gallbladder and bile ducts: There has been a cholecystectomy. Kidneys and ureters: 8 mm left renal calculus. 2.5 cm simple cyst left kidney. Bones/joints: Status post left shoulder arthroplasty. The spine demonstrates mild degenerative changes. Osteoporosis. Soft tissues: Unremarkable. IMPRESSION: 1. 1 x 1.4 x 1.5 cm stellate opacity in the superior segment of the left lower lobe surrounded by patchy ground-glass densities. Neoplasm is not excluded. Highly suspicious nodule(s). Consider PET/CT, or tissue sampling.(Reference: Yang) References: Nichojohn H, et al. Guidelines for Management of Incidental Pulmonary Nodules Detected on CT Images: From the Fleischner Society 2017. Radiology. 2017;284(1):228-243. 2. There is enlargement of the left and caudate lobes of the liver as well as a lobular surface contour of the liver. Findings may indicate the presence of cirrhosis in this patient with no reported history of chronic liver disease. No focal abnormality demonstrated. 3. There has been a cholecystectomy. Electronically signed by: Lacho Worrell On 09/15/2020 18:24:42 PM
[2020-09-15 18:30] VITALS: BP 134/61
[2020-09-15] MEDS ORDERED: LEVO750T13 PO (18:58)
--- NOTE | 2020-09-15 20:51 | ECGEPIP ---
[facility] - ED Test Date: 2020-09-15 Pat Name: YESICA JACKSON Department: Room: - Gender: Female [employer]: kai : [id number] Requested By: Porter Torrez Order Number: [id number] Reading MD: Janiya Stuart Measurements Intervals [place] Rate: 81 P: 54 VT: 251 QRS: 251 QRSD: 163 T: 0 QT: 399 QTc: 463 Interpretive Statements SINUS RHYTHM WITH FIRST DEGREE AV BLOCK MARKED RIGHT AXIS DEVIATION RIGHT BUNDLE BRANCH BLOCK SIMILAR 06/26/19 Electronically Signed on 09-15-2020 20:51:22 EST by Janiya Stuart
== END 2020-09-15 19:06 | disposition home or self-care (01) ==
LOC: EDBD 12:58 → M ED 12:58
DX: R91.1 Solitary pulmonary nodule (principal); J18.1 Lobar pneumonia, unspecified organism; I44.0 Atrioventricular block, first degree; I45.10 Unspecified right bundle-branch block; E11.21 Type 2 diabetes mellitus with diabetic nephropathy; E78.5 Hyperlipidemia, unspecified; J44.9 Chronic obstructive pulmonary disease, unspecified; K21.9 Gastro-esophageal reflux disease without esophagitis; G47.33 Obstructive sleep apnea (adult) (pediatric); N18.30 Chronic kidney disease, stage 3 unspecified; F41.9 Anxiety disorder, unspecified; M54.16 Radiculopathy, lumbar region; K31.84 Gastroparesis; Z87.891 Personal history of nicotine dependence; K57.30 Diverticulosis of large intestine without perforation or abscess without bleeding; N28.1 Cyst of kidney, acquired; Z96.612 Presence of left artificial shoulder joint; Z79.4 Long term (current) use of insulin; Z79.899 Other long term (current) drug therapy; Z88.0 Allergy status to penicillin; Z88.2 Allergy status to sulfonamides; Z88.8 Allergy status to other drugs, medicaments and biological substances; Z88.5 Allergy status to narcotic agent; Z91.89 Other specified personal risk factors, not elsewhere classified
CPT/HCPCS: 71045; 71250; 74177; 80048; 80076; 82550; 82553; 83605; 83690; 84484; 85025; 93005; 93041; 99285; Q9963; Q9967

== ENCOUNTER 2020-09-20 14:26 | Emergency (ER) | payer MEDICARE, MEDICAID ==
[~2020-09-20] VITALS: Ht 149.9 cm; Wt 90.9 kg
[~2020-09-20 14:26] MED LIST changes: +DOXY100T27 PO; +LEVO750T13 PO; +PRED20TA PO
[2020-09-20] MEDS ORDERED: IPRATROPIUM 0.5MG/ALBUTEROL 2.5MG INH SOL UD 3ML (DUONEB) NEB ONE (14:45)
[2020-09-20] MEDS ORDERED: ASPIRIN 81 MG CHEW TABLET PO ONE (14:45)
--- NOTE | 2020-09-20 15:16 | REP ---
INDICATION: DYSPNEA/COUGH. COMPARISON: Comparison study 15 September 2020. TECHNIQUE: Portable upright AP chest radiograph. FINDINGS: Monitoring electrodes are seen. The lungs are symmetrically aerated and free of infiltrate. Heart size is borderline unchanged. Aorta is calcific and tortuous. There is a prosthetic left shoulder and the patient is status post lower cervical spine fusion. Pulmonary vasculature is not increased.. No acute bony abnormality is seen. IMPRESSION: Borderline heart size. No active cardiopulmonary disease.. <Electronically signed by Froy Mohr > 09/20/20 [id number]
[2020-09-20 15:28] LABS: ABG BASE EXCESS 0.8 (-2.0-2.0); ABG HCO3 25.2 MEQ/L (22.0-26.0); ABG O2 SATURATION 95.9 % (95.0-99.0); ABG PARTIAL PRESSURE O2 83.4 mmHg (75.0-100.0); ABG STANDARD HCO3 25.2 MEQ/L (22.0-26.0); ABG TOTAL CO2 26.4 MEQ/L (23.0-31.0); ABG pH (ARTERIAL) 7.428 UNITS (7.350-7.450)
--- OUTSIDE RECORDS SUMMARY | 2020-09-20 15:43 | CCD ---
Author Author [facility] Organization [facility] Address Unknown Phone Unavailable Care Team Providers Care Hosiery Pairer Name Role Phone MCELHERAN, ALEX PA Unavailable [...] Unavailable Unavailable MCELHERAN, ALEX PA Unavailable Unavailable [facility] Unavailable Unavailable MCELHERAN, ALEX PA [...] L JEREMY GODINEZ Unavailable Unavailable FRANCO, L JEERMY GODINEZ Unavailable Unavailable FRANCO, L JEREMY GODINEZ [...] LUNA MD Unavailable Unavailable FRANCO, L JEREMY GOIDNEZ Unavailable Unavailable FRANCO, Ramsey LUNA MD Unavailable [...] Daryl PA Unavailable Unavailable Servage, L Sharlene APPRAISAL MANAGER Unavailable Unavailable Servage, L Sharlene APPRAISAL MANAGER Unavailable Unavailable Servage, L Sharlene APPRAISAL MANAGER Unavailable Unavailable Servage, L Sharlene APPRAISAL MANAGER Unavailable Unavailable Servage, L Sharlene APPRAISAL MANAGER Unavailable Unavailable Servage, L Sharlene APPRAISAL MANAGER Unavailable Unavailable Servage, L Sharlene APPRAISAL MANAGER Unavailable Unavailable Servage, L Sharlene APPRAISAL MANAGER Unavailable Unavailable Servage, L Sharlene APPRAISAL MANAGER Unavailable Unavailable Servage, L Sharlene APPRAISAL MANAGER Unavailable Unavailable Servage, L Sharlene APPRAISAL MANAGER Unavailable Unavailable Servage, L Sharlene APPRAISAL MANAGER Unavailable Unavailable Servage, L Sharlene APPRAISAL MANAGER Unavailable Unavailable Servage, L Sharlene APPRAISAL MANAGER Unavailable Unavailable Servage, L Sharlene APPRAISAL MANAGER Unavailable Unavailable Servage, L Sharlene APPRAISAL MANAGER Unavailable Unavailable Servage, L Sharlene APPRAISAL MANAGER Unavailable Unavailable Servage, L Sharlene APPRAISAL MANAGER Unavailable Unavailable Servage, L Sharlene APPRAISAL MANAGER Unavailable Unavailable Servage, L Sharlene APPRAISAL MANAGER Unavailable Unavailable Servage, L Sharlene APPRAISAL MANAGER Unavailable Unavailable Servage, L Sharlene APPRAISAL MANAGER Unavailable Unavailable Servage, L Sharlene APPRAISAL MANAGER Unavailable Unavailable Servage, L Sharlene APPRAISAL MANAGER Unavailable Unavailable Servage, L Sharlene APPRAISAL MANAGER Unavailable Unavailable Servage, L Sharlene APPRAISAL MANAGER Unavailable Unavailable Servage, L Sharlene APPRAISAL MANAGER Unavailable Unavailable Servage, L Sharlene APPRAISAL MANAGER Unavailable Unavailable Servage, L Sharlene APPRAISAL MANAGER Unavailable Unavailable Servage, L Sharlene APPRAISAL MANAGER Unavailable Unavailable Servage, L Sharlene APPRAISAL MANAGER Unavailable Unavailable Servage, L Sharlene APPRAISAL MANAGER Unavailable Unavailable Servage, L Sharlene APPRAISAL MANAGER Unavailable Unavailable Servage, L Sharlene APPRAISAL MANAGER Unavailable Unavailable Servage, L Sharlene APPRAISAL MANAGER Unavailable Unavailable Servage, L Sharlene APPRAISAL MANAGER Unavailable Unavailable Servage, L Sharlene APPRAISAL MANAGER Unavailable Unavailable Servage, L Sharlene APPRAISAL MANAGER Unavailable Unavailable Servage, L Sharlene APPRAISAL MANAGER Unavailable Unavailable Servage, L Sharlene APPRAISAL MANAGER Unavailable Unavailable Servage, L Sharlene APPRAISAL MANAGER Unavailable Unavailable Servage, L Sharlene APPRAISAL MANAGER Unavailable Unavailable Servage, L Sharlene APPRAISAL MANAGER Unavailable Unavailable Servage, L Sharlene APPRAISAL MANAGER Unavailable Unavailable Servage, L Sharlene APPRAISAL MANAGER Unavailable Unavailable Servage, L Sharlene APPRAISAL MANAGER Unavailable Unavailable Servage, L Sharlene APPRAISAL MANAGER Unavailable Unavailable Servage, L Sharlene APPRAISAL MANAGER Unavailable Unavailable Servage, L Sharlene APPRAISAL MANAGER Unavailable Unavailable Servage, L Sharlene APPRAISAL MANAGER Unavailable Unavailable Servage, L Sharlene APPRAISAL MANAGER Unavailable Unavailable Servage, L Sharlene APPRAISAL MANAGER Unavailable Unavailable Servage, L Sharlene APPRAISAL MANAGER Unavailable Unavailable Servage, L Sharlene APPRAISAL MANAGER Unavailable Unavailable Servage, L Sharlene APPRAISAL MANAGER Unavailable Unavailable Servage, L Sharlene APPRAISAL MANAGER Unavailable Unavailable Pepe, Laurie APPRAISAL MANAGER Unavailable Unavailable Pepe, Laurie APPRAISAL MANAGER Unavailable Unavailable Pepe, Laurie APPRAISAL MANAGER Unavailable Unavailable Pepe, Laurie APPRAISAL MANAGER Unavailable Unavailable Pepe, Laurie APPRAISAL MANAGER Unavailable Unavailable Pepe, Laurie APPRAISAL MANAGER Unavailable Unavailable Pepe, Laurie APPRAISAL MANAGER Unavailable Unavailable Pepe, Laurie APPRAISAL MANAGER Unavailable Unavailable Pepe, Laurie APPRAISAL MANAGER Unavailable Unavailable Pepe, Laurie APPRAISAL MANAGER Unavailable Unavailable Pepe, Laurie APPRAISAL MANAGER Unavailable Unavailable MACQUEEN, SHOSHANA APPRAISAL MANAGER Unavailable Unavailable MACQUEEN, SHOSHANA APPRAISAL MANAGER Unavailable Unavailable MACQUEEN, SHOSHANA APPRAISAL MANAGER Unavailable Unavailable MACQUEEN, SHOSHANA APPRAISAL MANAGER Unavailable Unavailable MACQUEEN, SHOSHANA APPRAISAL MANAGER Unavailable Unavailable MACQUEEN, SHOSHANA APPRAISAL MANAGER Unavailable Unavailable MACQUEEN, SHOSHANA APPRAISAL MANAGER Unavailable Unavailable MACQUEEN, SHOSHANA APPRAISAL MANAGER Unavailable Unavailable MACQUEEN, SHOSHANA APPRAISAL MANAGER Unavailable Unavailable MACQUEEN, SHOSHANA APPRAISAL MANAGER Unavailable Unavailable MACQUEEN, SHOSHANA APPRAISAL MANAGER Unavailable Unavailable Higinio Barron MD Unavailable Unavailable [...] is protected by Article 27-F of the [place] Public [employer] law. If you continue you may have access to information: Regarding HIV / AIDS; Provided by facilities licensed or operated by the [place] Office of Mental Health; or Provided by the [place] Office for People With Developmental Disabilities. If such information is present, then the following [place] mandated warning applies: This information has been [...] law may result in a fine or long term sentence or both. A general authorization for the release of medical or other information is NOT sufficient authorization for further disc losure. Allergies and Adverse Reactions Type Description Substance Reaction Status Data Source(s ) Propensity to adverse reactions to substance penicillin v po tassium Penicillin V Potassium 250 MG Oral Tablet [facility] Propensity to adverse reactions to substance Byetta (exenati de) 60 ACTUAT exenatide 0.005 MG/ACTUAT Pen Injector [Byetta] Active [facility] ([facility]) Drug allergy Actos pioglitazone CHF [facility] Drug allergy Tramadol Tramadol Itch Active eCW1 ([facility]) Family History Family Member Name Family Member Gender Family Member Status Date o f Status Description Data Source(s) Unknown Male Problem [facility]ENT ([facility]) Unknown Unknown Problem MEDENT ([facility]) Unknown Unknown Problem MEDENT ([facility] [employer] PRO[employer] COORDINATOR) Unknown Female Problem MEDENT ([facility]) Unknown Female Problem MEDENT ([facility]) Unknown Unknown Encounters Encounter Providers Location Date Indications Data Source(s ) Outpatient Attender: Laurie flaherty 09/05/2020 02:15:00 PM EST [facility] ([facility] Unknown [address] [facility] [place] [address] 09/02/2020 12:00:00 AM EST eCW1 ([facility]) Unknown [address] [facility] [place] [address] 08/18/2020 12:00:00 AM EST eCW1 ([facility]) Unknown [address] [facility] [place] [address] 07/30/2020 12:00:00 AM EST eCW1 ([facility]) Unknown [address] [facility] [place] [address] 07/30/2020 12:00:00 AM EST eCW1 ([facility]) Outpatient Attender: SHOSHANA WORTHY NP [facility] 07/24/2020 02:00:00 AM EST - 07/24/2020 02:00:00 AM EST [facility] ([facility]) Attender: SHOSHANA WORTHY NP 07/24/2020 12:00:00 AM EST [facility] ([facility]) Outpatient Attender: Daryl NOEL 07/22 10:24:00 AM EST - 07/22/2020 10:24:00 AM EST [facility] Unknown [address] [facility] [address] 07/03/2020 12:00:00 AM EST eCW1 ([facility]) 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 [address] 06/18/2020 12:00:00 AM EST eCW1 ([facility] Unknown [address] [facility] Y [address] 06/03/2020 12:00:00 AM EST eCW1 [facility]) Outpatient Attender: SHOSHANA WORTHY NP [facility] 05/15/2020 02:00:00 AM EDT - 05/15/2020 02:00:00 AM EDT [facility] ([facility]) Attender: SHOSHANA WORTHY NP 05/15/2020 12:00:00 AM EDT [facility] ([facility]) Outpatient [address] [facility] [address] 05/08/2020 12:00:00 AM EDT eCW1 ([facility]) Unknown [address] [facility] [address] 05/06/2020 12:00:00 AM EDT eCW1 ([facility]) [facility] [place] [address] [facility] [address] 03/20/2020 12:00:00 AM EDT eCW1 ([facility]) Unknown [address] [facility] [place] [address] 02/21/2020 12:00:00 AM EDT eCW1 ([facility] Unknown [address] [facility], [place] [address] 02/19/2020 12:00:00 AM EDT eCW1 ([facility]) Unknown [address] [facility], [place] [address] 02/15/2020 12:00:00 AM EDT eCW1 ([facility]) Unknown [address] [facility], Y [address] 01/23/2020 12:00:00 AM EDT eCW1 ([facility]) [facility] [address] [place] [address] 01/23/2020 12:00:00 AM EDT eCW1 ([facility]) Unknown [address] [facility], [place] [address] 01/19/2020 12:00:00 AM EDT eCW1 ([facility]) Outpatient Attender: Rigoberto Vo MD Physical Therapy 01/17/2020 1 1:15:00 AM EDT [facility] ([facility] ) Outpatient Attender: SHOSHANA WORTHY NP [facility] 01/11/2020 03:00:00 AM EDT - 01/11/2020 03:00:00 AM EDT [facility] ([facility] Attender: SHOSHANA WORTHY NP 01/11/2020 12:00:00 AM EDT [facility] ([facility]) Outpatient [address] [facility], [place] [address] 01/08/2020 12:00:00 AM EDT eCW1 ([facility]) Unknown [address] [facility], [place] [address] 01/03/2020 12:00:00 AM EDT eCW1 ([facility]) Outpatient Attender: Tk Rodas/Hubert/James/Jyoti leyva 12/28/2019 01:15:00 PM EDT [facility] ([facility] [address] [address] 12/26/2019 12:00:00 AM EDT eCW1 ([facility]) [address] [address] 12/26/2019 12:00:00 AM EDT eCW1 ([facility]) [facility] [address] [place] [address] 12/22/2019 12:00:00 AM EDT eCW1 ([facility]) [facility] [address] [place] [address] 12/22/2019 12:00:00 AM EDT eCW1 ([facility]) [address] [address] 12/17/2019 12:00:00 AM EDT eCW1 ([facility]) [facility] [address] [place] [address] 12/15/2019 12:00:00 AM EDT eCW1 ([facility]) [address] Y [address] 12/11/2019 12:00:00 AM EDT eCW1 ([facility]) [address] [place] [address] 12/04/2019 12:00:00 AM EDT eCW1 ([facility]) Outpatient Attender: SHOSHANA WORTHY NP [facility] 11/15/2019 01:00:00 AM EDT - 11/15/2019 01:00:00 AM EDT [facility] ([facility]) [address] [place] [address] 11/15/2019 12:00:00 AM EDT [facility] Attender: SHOSHANA WORTHY NP 11/15/2019 12:00:00 AM EDT [facility] ([facility]) [address] [address] 11/10/2019 12:00:00 AM EDT eCW1 ([facility]) [address] [place] [address] 11/06/2019 12:00:00 AM EDT eCW1 ([facility]) Outpatient Attender: SHOSHANA WORTHY NP [facility] 10/05/2019 03:00:00 AM EST - 10/05/2019 03:00:00 AM EST [facility] ([facility]) Attender: SHOSHANA WORTHY NP 10/05/2019 12:00:00 AM EST [facility] ([facility]) Outpatient Attender: ALEX NOEL Physical Therapy 10/03/2019 12:45:00 PM EST MED[facility] ([facility]) [facility] [address] [place] [phone] 09/29/2019 12:00:00 AM EST eCW1 ([facility]) Outpatient Referrer: Sharlene Chen NP 09/28/2019 12:10:00 PM EST [facility] Outpatient Attender: Kalpana Rodas/Hubert/James/Jyoti leyva 09/27/2019 08:15:00 AM EST [facility] ([facility]) [address] [address] 09/25/2019 12:00:00 AM EST eCW1 ([facility]) [address] [address] 09/19/2019 12:00:00 AM EST eCW1 ([facility]) [facility] [address] [place] [address] 09/12/2019 12:00:00 AM EST eCW1 ([facility]) Outpatient Attender: Rigoberto Vo MD Physical Therapy 09/06/2019 0 9:45:00 AM EST [facility] ([facility]) [address] [address] 08/28/2019 12:00:00 AM EST eCW1 ([facility]) Outpatient Attender: Kalpana Rodas/Hubert/James/R eindl 08/22/2019 08:15:00 AM EST [facility] ([facility]) Outpatient Referrer: Sharlene Chen NP 08/18/2019 06:07:00 AM EST [facility] Outpatient Attender: SHOSHANA WORTHY NP [facility] 08/10/2019 02:30:00 AM EST - 08/10/2019 02:30:00 AM EST [facility] ([facility]) Attender: SHOSHANA WORTHY NP 08/10/2019 12:00:00 AM EST [facility] ([facility]) Functional Status Immunizations Vaccine Date Status Description Data Source(s) COVID-19 VACCINE, MRNA-1273, LNP-S (MODERNA)/PF 08/27/2020 1 2:00:00 AM EST completed [facility] influenza, recombinant, quadrIvalent,injectable, prese rvative free 06/06/2020 04:36:00 PM EST completed eCW1 (Counts include 234 beds at the [facility]) influenza, recombinant, quadrIvalent,injectable, prese rvative free 06/06/2020 04:36:00 PM EST completed eCW1 (Counts include 234 beds at the [facility]) influenza, recombinant, quadrIvalent,injectable, prese rvative free 06/06/2020 04:36:00 PM EST completed eCW1 (Counts include 234 beds at the [facility]) influenza, recombinant, quadrIvalent,injectable, prese rvative free 06/06/2020 04:36:00 PM EST completed eCW1 (Counts include 234 beds at the [facility]) influenza, recombinant, quadrIvalent,injectable, prese rvative free 06/06/2020 04:36:00 PM EST completed eCW1 (Counts include 234 beds at the [facility]) influenza, recombinant, quadrIvalent,injectable, prese rvative free 06/06/2020 04:36:00 PM EST completed eCW1 (Counts include 234 beds at the [facility]) influenza, recombinant, quadrIvalent,injectable, prese rvative free 06/06/2020 04:36:00 PM EST completed eCW1 (Counts include 234 beds at the [facility]) influenza, recombinant, quadrIvalent,injectable, prese rvative free 06/06/2020 04:36:00 PM EST completed eCW1 (Counts include 234 beds at the [facility]) influenza, recombinant, quadrIvalent,injectable, prese rvative free 06/06/2020 04:36:00 PM EST completed eCW1 (Counts include 234 beds at the [facility]) Medications Medication Brand Name Start Date Product Form Dose Route Admi nistrative Instructions Pharmacy Instructions Status Indications Reaction Description Data Source(s) 750 mg 09/16/2020 12:00:00 AM EST tablet 5 TAKE ONE TABLET BY MOUTH EVERY DAY TAKE ONE TABLET BY MOUTH EVERY DAY SOLD: 09/16/2020 Ariella Del Cid Prednisone 20 MG Oral Tablet Prednisone 09/05/2020 12:00:00 AM EST active MED[facility] ([facility]) Doxycycline Monohydrate 100 MG Oral Tablet Doxycycline Monoh ydrate 09/05/2020 12:00:00 AM EST ORAL active M EDENT ([facility]) 100 mg 09/05/2020 12:00:00 AM EST tablet [...] {capsule} active Doxycycline Hyclate 100 MG eCW1 ([facility]) doxycycline hyclate 100 MG Oral Capsule Doxycycline Hy clate 100 MG Doxycycline Hyclate 100 MG 06/18/2020 12:00:00 AM EST 1.0 {capsule} active Doxycycline Hyclate 100 MG eCW1 ([facility]) doxycycline hyclate 100 MG Oral Capsule Doxycycline Hy clate 100 MG Doxycycline Hyclate 100 MG 06/18/2020 12:00:00 AM EST 1.0 {capsule} active Doxycycline Hyclate 100 MG eCW1 ([facility]) doxycycline hyclate 100 MG Oral Capsule DOXYCYCLINE [...] {tablets} active P redniSONE 10 MG eCW1 ([facility]) Prednisone 10 MG Oral Tablet PredniSONE 10 MG PredniSONE 10 MG 06/18/2020 12:00:00 AM EST 3.0 {tablets} active P redniSONE 10 MG eCW1 ([facility]) Prednisone 10 MG Oral Tablet PredniSONE 10 MG PredniSONE 10 MG 06/18/2020 12:00:00 AM EST 3.0 {tablets} active P redniSONE 10 MG eCW1 ([facility]) Prednisone 10 MG Oral Tablet PredniSONE 10 MG PredniSONE 10 MG 06/18/2020 12:00:00 AM EST 3.0 {tablets} active P redniSONE 10 MG eCW1 ([facility]) Prednisone 10 MG Oral Tablet PredniSONE 10 MG PredniSONE 10 MG 06/18/2020 12:00:00 AM EST 3.0 {tablets} active P redniSONE 10 MG eCW1 ([facility]) doxycycline hyclate 100 MG Oral Capsule Doxycycline Hy clate 100 MG Doxycycline Hyclate 100 MG 06/18/2020 12:00:00 AM EST 1.0 {capsule} active Doxycycline Hyclate 100 MG eCW1 ([facility]) Prednisone 10 MG Oral Tablet PredniSONE 10 MG PredniSONE 10 MG 06/18/2020 12:00:00 AM EST 3.0 {tablets} active P redniSONE 10 MG eCW1 ([facility]) doxycycline hyclate 100 MG Oral Capsule Doxycycline Hy clate 100 MG Doxycycline Hyclate 100 MG 06/18/2020 12:00:00 AM EST 1.0 {capsule} active Doxycycline Hyclate 100 MG eCW1 ([facility]) 1 mg 06/18/2020 12:00:00 AM EST tablet 90 TAKE ONE TABLET BY MOUTH EVERY DAY TAKE ONE TABLET BY MOUTH EVERY DAY SOLD: 06/19/2020 [facility] Prednisone 10 MG Oral Tablet PredniSONE 10 MG PredniSONE 10 MG 06/18/2020 12:00:00 AM EST 3.0 {tablets} active P redniSONE 10 MG eCW1 ([facility]) Prednisone 10 MG Oral Tablet PredniSONE 10 MG PredniSONE 10 MG 06/18/2020 12:00:00 AM EST 3.0 {tablets} active P redniSONE 10 MG eCW1 ([facility]) doxycycline hyclate 100 MG Oral Capsule Doxycycline Hy clate 100 MG Doxycycline Hyclate 100 MG 06/18/2020 12:00:00 AM EST 1.0 {capsule} active Doxycycline Hyclate 100 MG eCW1 ([facility]) doxycycline hyclate 100 MG Oral Capsule Doxycycline Hy clate 100 MG Doxycycline Hyclate 100 MG 06/18/2020 12:00:00 AM EST 1.0 {capsule} active Doxycycline Hyclate 100 MG eCW1 ([facility]) Prednisone 10 MG Oral Tablet PredniSONE 10 MG PredniSONE 10 MG 06/18/2020 12:00:00 AM EST 3.0 {tablets} active P redniSONE 10 MG eCW1 ([facility]) doxycycline hyclate 100 MG Oral Capsule Doxycycline Hy clate 100 MG Doxycycline Hyclate 100 MG 06/18/2020 12:00:00 AM EST 1.0 {capsule} active Doxycycline Hyclate 100 MG eCW1 ([facility]) doxycycline hyclate 100 MG Oral Capsule Doxycycline Hy clate 100 MG Doxycycline Hyclate 100 MG 06/18/2020 12:00:00 AM EST 1.0 {capsule} active Doxycycline Hyclate 100 MG eCW1 ([facility]) 324 mg (38 mg iron) 06/07/2020 12:00:00 [...] AM EDT 0.25 mg by mouth completed [id number] alprazolam by mouth [id number] 05/22/2020 twice a day 30 0.25 mg tablet as needed [id number] Alessia Beck [id number] Nurse Practitioner [facility] ([facility]) Alprazolam 0.25 MG Oral Tablet alprazolam 03/26/2020 12:00:00 AM EDT 0.25 mg by mouth completed [id number] alprazolam by mouth [id number] 05/22/2020 twice a day 30 0.25 mg tablet as needed [id number] Alessia Beck [id number] Nurse Practitioner [facility] ([facility]) buspirone hydrochloride 15 MG Oral Tablet BUSPIRONE [...] {tablet s} active Senna 8.6 MG eCW1 ([facility]) Senna 8.6 MG Senna 8.6 MG 02/21/2020 12:00:00 AM EDT 2.0 {tablet s} active Senna 8.6 MG eCW1 ([facility]) 8.6 mg 02/21/2020 12:00:00 AM EDT tablet [...] {tablet s} active Senna 8.6 MG eCW1 ([facility]) Senna 8.6 MG Senna 8.6 MG 02/21/2020 12:00:00 AM EDT 2.0 {tablet s} active Senna 8.6 MG eCW1 ([facility]) Senna 8.6 MG Senna 8.6 MG 02/21/2020 12:00:00 AM EDT 2.0 {tablet s} active Senna 8.6 MG eCW1 ([facility]) Senna 8.6 MG Senna 8.6 MG 02/21/2020 12:00:00 AM EDT 2.0 {tablet s} active Senna 8.6 MG eCW1 ([facility]) Senna 8.6 MG Senna 8.6 MG 02/21/2020 12:00:00 AM EDT 2.0 {tablet s} active Senna 8.6 MG eCW1 ([facility]) Senna 8.6 MG Senna 8.6 MG 02/21/2020 12:00:00 AM EDT 2.0 {tablet s} active Senna 8.6 MG eCW1 ([facility]) Senna 8.6 MG Senna 8.6 MG 02/21/2020 12:00:00 AM EDT 2.0 {tablet s} active Senna 8.6 MG eCW1 ([facility]) Senna 8.6 MG Senna 8.6 MG 02/21/2020 12:00:00 AM EDT 2.0 {tablet s} active Senna 8.6 MG eCW1 ([facility]) Senna 8.6 MG Senna 8.6 MG 02/21/2020 12:00:00 AM EDT 2.0 {tablet s} active Senna 8.6 MG eCW1 ([facility]) Senna 8.6 MG Senna 8.6 MG 02/21/2020 12:00:00 AM EDT 2.0 {tablet s} active Senna 8.6 MG eCW1 ([facility]) Senna 8.6 MG Senna 8.6 MG 02/21/2020 12:00:00 AM EDT 2.0 {tablet s} active Senna 8.6 MG eCW1 ([facility]) 0.6 mg/0.1 mL (18 mg/3 mL) 02/16/2020 [...] {tablet_on_the_tongue_and_allow_to_dissolve} active Zofran ODT 4 MG eCW1 ([facility]) Zofran ODT 4 MG UNK 01/24/2020 12:00:00 AM EDT 1.0 {tablet_on_the_tongue_and_allow_to_dissolve} active Zofran ODT 4 MG eCW1 ([facility]) Zofran ODT 4 MG UNK 01/24/2020 12:00:00 AM EDT 1.0 {tablet_on_the_tongue_and_allow_to_dissolve} active Zofran ODT 4 MG eCW1 ([facility]) Zofran ODT 4 MG K 01/24/2020 12:00:00 AM EDT 1.0 {tablet_on_the_tongue_and_allow_to_dissolve} active Zofran ODT 4 MG eCW1 ([facility]) Zofran ODT 4 MG UNK 01/24/2020 12:00:00 AM EDT 1.0 {tablet_on_the_tongue_and_allow_to_dissolve} active Zofran ODT 4 MG eCW1 ([facility]) Zofran ODT 4 MG K 01/24/2020 12:00:00 AM EDT 1.0 {tablet_on_the_tongue_and_allow_to_dissolve} active Zofran ODT 4 MG eCW1 ([facility]) Zofran ODT 4 MG UNK 01/24/2020 12:00:00 AM EDT 1.0 {tablet_on_the_tongue_and_allow_to_dissolve} active Zofran ODT 4 MG eCW1 ([facility]) Zofran ODT 4 MG UNK 01/24/2020 12:00:00 AM EDT 1.0 {tablet_on_the_tongue_and_allow_to_dissolve} active Zofran ODT 4 MG eCW1 ([facility]) 4 mg 01/24/2020 12:00:00 AM EDT tablet,disintegrating 5 6 DISSOLVE 1 TABLET BY MOUTH BEFORE MEALS AND AT BEDTIME FOR 14 DAYS DISSOLVE 1 TABLET BY MOUTH BEFORE MEALS AND AT BEDTIME FOR 14 DAYS SOLD: 01/24/2020 [facility] Zofran ODT 4 MG UNK 01/24/2020 12:00:00 AM EDT 1.0 {tablet_on_the_tongue_and_allow_to_dissolve} active Zofran ODT 4 MG eCW1 ([facility]) Zofran ODT 4 MG UNK 01/24/2020 12:00:00 AM EDT 1.0 {tablet_on_the_tongue_and_allow_to_dissolve} active Zofran ODT 4 MG eCW1 ([facility]) Zofran ODT 4 MG UNK 01/24/2020 12:00:00 AM EDT 1.0 {tablet_on_the_tongue_and_allow_to_dissolve} active Zofran ODT 4 MG eCW1 ([facility]) Zofran ODT 4 MG UNK 01/24/2020 12:00:00 AM EDT 1.0 {tablet_on_the_tongue_and_allow_to_dissolve} active Zofran ODT 4 MG eCW1 ([facility]) Zofran ODT 4 MG UNK 01/24/2020 12:00:00 AM EDT 1.0 {tablet_on_the_tongue_and_allow_to_dissolve} active Zofran ODT 4 MG eCW1 ([facility]) Zofran ODT 4 MG UNK 01/24/2020 12:00:00 AM EDT 1.0 {tablet_on_the_tongue_and_allow_to_dissolve} active Zofran ODT 4 MG eCW1 ([facility]) Zofran ODT 4 MG UNK 01/24/2020 12:00:00 AM EDT 1.0 {tablet_on_the_tongue_and_allow_to_dissolve} active Zofran ODT 4 MG eCW1 ([facility]) Alprazolam 0.25 MG Oral Tablet ALPRAZOLAM 01/23/2020 12:00:00 AM EDT tablet 60 TAKE ONE TABLET BY MOUTH TWICE A DAY NEEDED MAXIMUM DAILY DOSE = 2 TABLETS TAKE ONE TABLET BY MOUTH TWICE A DAY NEEDED MAXIMUM DAILY DOSE = 2 TABLETS SOLD: 01/23/2020 [facility] Alprazolam 0.25 MG Oral Tablet alprazolam 01/22/2020 12:00:00 AM EDT 0.25 mg by mouth completed [id number] alprazolam by mouth [id number] 03/14/2020 twice a day 30 0.25 mg tablet as needed [id number] Amanda Caraballo [id number] Psychiatric/Mental Health [facility] ([facility]) 100 mg 01/19/2020 12:00:00 AM EDT capsule [...] BY MOUTH TWICE A DAY SOLD: 02/20/2020 [facility] buspirone hydrochloride 15 MG Oral [...] MOUTH EVERY DAY AT SUPPER SOLD: 03/27/2020 [facility] 5-500 mg 12/27/2019 12:00:00 AM [...] AM EDT 0.25 mg by mouth completed [id number] alprazolam by mouth [id number] 01/17/2020 twice a day 30 0.25 mg tablet [id number] Shoshana Worthy [id number] Psychiatric/Mental Health [facility] ([facility]) montelukast 10 MG Oral Tablet MONTELUKAST SODIUM 12/18/2019 12:0 0:00 AM EDT tablet 90 TAKE ONE TABLET BY MOUTH EVERY E VENING TAKE ONE TABLET BY MOUTH EVERY EVENING SOLD: 12/19/2019 [facility] montelukast 10 MG Oral Tablet MONTELUKAST SODIUM [...] TABLETS BY MOUTH EVERY DAY SOLD: 12/27/2019 [facility] buspirone hydrochloride 15 MG Oral [...] suspended 1 drop into left eye eCW1 ([facility]) Dexamethasone 1 MG/ML / Tobramycin 3 MG/ ML Ophthalmic Suspension [Tobradex] TobraDex 0.3-0.1 % TobraDex 0.3-0.1 % 11/15/2019 12:00:00 AM EDT suspended TobraDex 0.3-0.1 % eCW1 ([facility]) buspirone hydrochloride 15 MG Oral Tablet buspirone 2019 12:00:00 AM EDT 15 mg by mouth completed [id number] buspirone by mouth [id number] 11/15/2019 twice a day 15 mg tablet [id number] Shoshana Tyler [id number] Psychiatric/Mental Health [facility] ([facility]) Dexamethasone 1 MG/ML / Tobramycin 3 MG/ ML Ophthalmic Suspension [Tobradex] TobraDex 0.3-0.1 % TobraDex 0.3-0.1 % 11/15/2019 12:00:00 AM EDT suspended TobraDex 0.3-0.1 % eCW1 ([facility]) Dexamethasone 1 MG/ML / Tobramycin 3 MG/ ML Ophthalmic Suspension [Tobradex] TobraDex 0.3-0.1 % TobraDex 0.3-0.1 % 11/15/2019 12:00:00 AM EDT suspended TobraDex 0.3-0.1 % eCW1 ([facility]) 0.3-0.1 % 11/15/2019 12:00:00 AM EDT drops,suspension 5 INSERT 1 DROP INTO LEFT EYE THREE TIMES A DAY INSERT 1 DROP INTO LEFT EYE THREE TIMES A DAY SOLD: 11/15/2019 [facility] Dexamethasone 1 MG/ML / Tobramycin 3 MG/ ML Ophthalmic Suspension [Tobradex] TobraDex 0.3-0.1 % TobraDex 0.3-0.1 % 11/15/2019 12:00:00 AM EDT suspended TobraDex 0.3-0.1 % eCW1 ([facility]) Dexamethasone 1 MG/ML / Tobramycin 3 MG/ ML Ophthalmic Suspension [Tobradex] TobraDex 0.3-0.1 % TobraDex 0.3-0.1 % 11/15/2019 12:00:00 AM EDT suspended TobraDex 0.3-0.1 % eCW1 ([facility]) Dexamethasone 1 MG/ML / Tobramycin 3 MG/ ML Ophthalmic Suspension [Tobradex] TobraDex 0.3-0.1 % TobraDex 0.3-0.1 % 11/15/2019 12:00:00 AM EDT suspended TobraDex 0.3-0.1 % eCW1 ([facility]) Dexamethasone 1 MG/ML / Tobramycin 3 MG/ ML Ophthalmic Suspension [Tobradex] TobraDex 0.3-0.1 % TobraDex 0.3-0.1 % 11/15/2019 12:00:00 AM EDT suspended TobraDex 0.3-0.1 % eCW1 ([facility]) Dexamethasone 1 MG/ML / Tobramycin 3 MG/ ML Ophthalmic Suspension [Tobradex] TobraDex 0.3-0.1 % TobraDex 0.3-0.1 % 11/15/2019 12:00:00 AM EDT suspended TobraDex 0.3-0.1 % eCW1 ([facility]) Dexamethasone 1 MG/ML / Tobramycin 3 MG/ ML Ophthalmic Suspension [Tobradex] TobraDex 0.3-0.1 % TobraDex 0.3-0.1 % 11/15/2019 12:00:00 AM EDT suspended TobraDex 0.3-0.1 % eCW1 ([facility]) Dexamethasone 1 MG/ML / Tobramycin 3 MG/ ML Ophthalmic Suspension [Tobradex] TobraDex 0.3-0.1 % TobraDex 0.3-0.1 % 11/15/2019 12:00:00 AM EDT suspended TobraDex 0.3-0.1 % eCW1 ([facility]) Dexamethasone 1 MG/ML / Tobramycin 3 MG/ ML Ophthalmic Suspension [Tobradex] TobraDex 0.3-0.1 % TobraDex 0.3-0.1 % 11/15/2019 12:00:00 AM EDT suspended TobraDex 0.3-0.1 % eCW1 ([facility]) Dexamethasone 1 MG/ML / Tobramycin 3 MG/ ML Ophthalmic Suspension [Tobradex] TobraDex 0.3-0.1 % TobraDex 0.3-0.1 % 11/15/2019 12:00:00 AM EDT suspended TobraDex 0.3-0.1 % eCW1 ([facility]) Dexamethasone 1 MG/ML / Tobramycin 3 MG/ ML Ophthalmic Suspension [Tobradex] TobraDex 0.3-0.1 % TobraDex 0.3-0.1 % 11/15/2019 12:00:00 AM EDT suspended TobraDex 0.3-0.1 % eCW1 ([facility]) Dexamethasone 1 MG/ML / Tobramycin 3 MG/ ML Ophthalmic Suspension [Tobradex] TobraDex 0.3-0.1 % TobraDex 0.3-0.1 % 11/15/2019 12:00:00 AM EDT suspended TobraDex 0.3-0.1 % eCW1 ([facility]) Dexamethasone 1 MG/ML / Tobramycin 3 MG/ ML Ophthalmic Suspension [Tobradex] TobraDex 0.3-0.1 % TobraDex 0.3-0.1 % 11/15/2019 12:00:00 AM EDT suspended TobraDex 0.3-0.1 % eCW1 ([facility]) Dexamethasone 1 MG/ML / Tobramycin 3 MG/ ML Ophthalmic Suspension [Tobradex] TobraDex 0.3-0.1 % TobraDex 0.3-0.1 % 11/15/2019 12:00:00 AM EDT suspended TobraDex 0.3-0.1 % eCW1 ([facility]) Dexamethasone 1 MG/ML / Tobramycin 3 MG/ ML Ophthalmic Suspension [Tobradex] TobraDex 0.3-0.1 % TobraDex 0.3-0.1 % 11/15/2019 12:00:00 AM EDT suspended TobraDex 0.3-0.1 % eCW1 ([facility]) Dexamethasone 1 MG/ML / Tobramycin 3 MG/ ML Ophthalmic Suspension [Tobradex] TobraDex 0.3-0.1 % TobraDex 0.3-0.1 % 11/15/2019 12:00:00 AM EDT suspended TobraDex 0.3-0.1 % eCW1 ([facility]) 40 mg 11/13/2019 12:00:00 AM EDT tablet [...] AM EST 0.25 mg by mouth completed [id number] Xanax by mouth [id number] 11/17/2019 twice a day 30 0.25 mg tablet as needed [id number] Amanda Caraballo [id number] Psychiatric/Mental Health [facility] ([facility]) 324 mg (38 mg iron) 09/25/2019 12:00:00 [...] DAY SOLD: 09/23/2019 [facility] Hospital bed UNK 09/19/2019 12:00:00 AM EST activ e Hospital bed eCW1 ([facility]) Hospital bed UNK 09/19/2019 12:00:00 AM EST activ e Hospital bed eCW1 ([facility]) Hospital bed UNK 09/19/2019 12:00:00 AM EST activ e Hospital bed eCW1 ([facility]) Hospital bed UNK 09/19/2019 12:00:00 AM EST activ e Hospital bed eCW1 ([facility]) Hospital bed UNK 09/19/2019 12:00:00 AM EST activ e Hospital bed eCW1 ([facility]) Hospital bed UNK 09/19/2019 12:00:00 AM EST activ e Hospital bed eCW1 ([facility]) 100 mg 09/19/2019 12:00:00 AM EST tablet 45 TAKE ONE AND ONE-HALF TABLETS BY MOUTH EVERY DAY DIRECTED TAKE ONE AND ONE-HALF TABLETS BY MOUTH E VERY DAY DIRECTED SOLD: 10/24/2019 [facility] Hospital bed UNK 09/19/2019 12:00:00 AM EST activ e Hospital bed eCW1 ([facility]) Hospital bed UNK 09/19/2019 12:00:00 AM EST activ e Hospital bed eCW1 ([facility]) 100 mg 09/19/2019 12:00:00 AM EST tablet 45 TAKE ONE AND ONE-HALF TABLETS BY MOUTH EVERY DAY DIRECTED TAKE ONE AND ONE-HALF TABLETS BY MOUTH E VERY DAY DIRECTED SOLD: 09/23/2019 [facility] Hospital bed UNK 09/19/2019 12:00:00 AM EST activ e Hospital bed eCW1 ([facility]) Hospital bed UNK 09/19/2019 12:00:00 AM EST activ e Hospital bed eCW1 ([facility]) Hospital bed UNK 09/19/2019 12:00:00 AM EST activ e as directed eCW1 ([facility]) Hospital bed UNK 09/19/2019 12:00:00 AM EST activ e Hospital bed eCW1 ([facility]) Hospital bed UNK 09/19/2019 12:00:00 AM EST activ e Hospital bed eCW1 ([facility]) Hospital bed UNK 09/19/2019 12:00:00 AM EST activ e Hospital bed eCW1 ([facility]) Hospital bed UNK 09/19/2019 12:00:00 AM EST activ e as directed eCW1 ([facility]) buspirone hydrochloride 10 MG Oral Tablet BUSPIRONE HCL 09/19/2019 12:00:00 AM EST tablet 60 TAKE ONE TABLET BY MOUTH TWI CE A DAY TAKE ONE TABLET BY MOUTH TWICE A DAY SOLD: 09/23/2019 [facility] Hospital bed UNK 09/19/2019 12:00:00 AM EST activ e Hospital bed eCW1 ([facility]) Hospital bed UNK 09/19/2019 12:00:00 AM EST activ e Hospital bed eCW1 ([facility]) buspirone hydrochloride 10 MG Oral Tablet BUSPIRONE HCL 09/19/2019 12:00:00 AM EST tablet 60 TAKE ONE TABLET BY MOUTH TWI CE A DAY TAKE ONE TABLET BY MOUTH TWICE A DAY SOLD: 10/24/2019 [facility] Hospital bed UNK 09/19/2019 12:00:00 AM EST activ e Hospital bed eCW1 ([facility]) Hospital bed UNK 09/19/2019 12:00:00 AM EST activ e Hospital bed eCW1 ([facility]) Hospital bed UNK 09/19/2019 12:00:00 AM EST activ e Hospital bed eCW1 ([facility]) Alprazolam 0.25 MG Oral Tablet ALPRAZOLAM 09/07/2019 [...] DAILY DOSE = 3 TABLETS SOLD: 07/22/2019 [facility] 100 MG Oral Tablet Sertraline HCL 07/20/2019 12:00:[address] ORAL completed [facility] ([facility]) 0.5 mcg 07/14/2019 12:00:00 AM [...] 90 TAKE ONE TABLET BY MOUTH [place] DAY TAKE ONE TABLET BY MOUTH EVERY DAY SOLD: 10/04/2019 [facility] 50 mg 03/01/2019 12:00:00 AM EDT tablet 90 TAKE ONE TABLET BY MOUTH EVERY DAY TAKE ONE TABLET BY MOUTH EVERY DAY SOLD: 12/27/2019 [facility] BLOOD SUGAR DIAGNOSTIC 03/01/2019 12:00:00 AM EDT strip 350 TEST FOUR TIMES A DAY TEST FOUR TIMES A DAY SOLD: 01/05/2020 [facility] montelukast 10 MG Oral Tablet MONTELUKAST SODIUM [...] MORNING O N EMPTY STOMACH SOLD: 09/14/2019 [facility] 0.6 mg/0.1 mL (18 mg/3 mL) 10/27/2018 12:00:00 AM EDT pen in jector 27 INJECT 1.8MG UNDER THE SKIN ONCE DAILY INJECT 1.8MG UNDER THE SKIN ONCE DAILY SOLD: 08/16/2019 [facility] 40 mg 10/27/2018 12:00:00 AM EDT tablet 180 TAKE ONE TABLET BY MOUTH TWICE A DAY TAKE ONE TABLET BY MOUTH TWICE A DAY SOLD: 08/08/2019 [facility] 300 mg 10/05/2018 12:00:00 AM EST capsule 270 TAKE ONE CAPSULE BY MOUTH THREE TIMES A DAY TAKE ONE CAPSULE BY MOUTH THREE TIMES A DAY SOLD: 08/08/2019 [facility] Insurance Providers Payer name Policy type / Coverage type Policy ID Covered libertarian ID Covered libertarian's relationship to kraft Policy Kraft Plan Information EMEDNY [id number] SP [id number] WELLCARE [id number] SP [id number] WELLCARE [id number] SP [id number] MEDICAID [id number] 18 [id number] [facility] [id number] 18 [id number] WELLCARE MEDICARE HMO G [id number] Self [id number] MEDICAID M [id number] Self [id number] MEDICARE A [id number] Self [id number] B WELLCARE O [id number] S [id number] MEDICAID M [id number] S [id number] MEDICAID [id number] SP [id number] MEDICARE [id number] SP [id number] WELLCARE [id number] SP [id number] WELLCARE O [id number] S [id number] TODAYS OPTIONS [id number] SP [id number] ANSI-Health Maintenance Organization (HM O) [id number] ANSI-Medicaid [id number] ANSI-Medicaid [id number] ANSI-Health Maintenance Organization (HM O) [id number] ANSI-Medicaid [id number] ANSI-Health Maintenance Organization (HM O) [id number] [place] Med[place] B [id number] Self [id number] Wellcare Commercial [id number] Self [id number] Todays Options Medigap Part B [id number] Self [id number] [place] [id number] Self [id number] [place] Medigap Part B [id number] Self [id number] Wellcare Commercial [id number] Self [id number] Wellcare Commercial [id number] Self [id number] [place] [id number] Self [id number] [place] Medicare Primary [id number] Self [id number] Today's Option Commercial [id number] Self [id number] ANSI-Medicaid [id number] ANSI-Health Maintenance Organization (HM O) [id number] ANSI-Health Maintenance Organization (HM O) [id number] ANSI-Medicaid [id number] [place] Medigap Part B [id number] Self [id number] Wellcare Commercial [id number] Self [id number] WELLCARE [id number] SP [id number] [place] Medigap Part B [id number] Self [id number] Wellcare Commercial [id number] Self [id number] ANSI-Medicaid [id number] ANSI-Health Maintenance Organization ( O) [id number] ANSI-Medicaid [id number] ANSI-Health Maintenance Organization ( O) [id number] ANSI-Medicaid [id number] ANSI-Health Maintenance Organization ( O) [id number] ANSI-Health Maintenance Organization ( O) [id number] ANSI-Medicaid [id number] ANSI-Health Maintenance Organization ( O) [id number] ANSI-Medicaid [id number] [place] [id number] Self [id number] Medicare [place]/[facility] Medicare Primary [id number] Self [id number] [place] [id number] Self [id number] Today's Options Medicare Commercial [id number] Self [id number] Medicaid [place] Med[place] Part B [id number] Self [id number] [facility] Commercial [id number] Self [id number] Blue Choice Health Maintenance Organization (HMO) [id number] Family Dependent [id number] [facility] [place] Medicaid [id number] [facility] [id number] ANSI-Medicaid [id number] ANSI-Medicare Part B [id number] ANSI-Health Maintenance Organization ( O) [id number] ANSI-Medicaid [id number] ANSI-Medicare Part B [id number] ANSI-Health Maintenance Organization ( O) [id number] ANSI-Medicare Part B [id number] ANSI-Health Maintenance Organization ( O) [id number] ANSI-Medicaid [id number] ANSI-Medicaid [id number] ANSI-Medicare Part B [id number] ANSI-Health Maintenance Organization ( O) [id number] ANSI-Medicare Part B [id number] ANSI-Medicaid [id number] [facility]-Health Maintenance Organization ( O) [id number] [facility]-Health Maintenance Organization ( O) [id number] ANSI-Medicaid [id number] ANSI-Medicare Part B [id number] [facility]-Health Maintenance Organization ( O) [id number] ANSI-Medicare Part B [id number] ANSI-Medicaid [id number] ANSI-Health Maintenance Organization ( O) [id number] ANSI-Medicaid [id number] ANSI-Medicare Part B [id number] ANSI-Medicaid [id number] ANSI-Medicare Part B [id number] ANSI-Health Maintenance Organization ( O) [id number] [employer] O [id number] O [id number] [employer] OPTIONS/[employer] [place] O [id number] O [id number] ANSI-Health Maintenance Organization (HM O) [id number] ANSI-Medicare Part B [id number] ANSI-Medicaid [id number] ANSI-Medicaid [id number] ANSI-Health Maintenance Organization ( O) [id number] ANSI-Medicare Part B [id number] [facility] [id number] ANSI-Medicaid [id number] ANSI-Medicare Part B [id number] ANSI-Medicaid [id number] ANSI-Medicare Part B [id number] [facility] Commercial [id number] Self [id number] Today's Options Commercial [id number] Self [id number] ANSI-Medicare Part B [id number] ANSI-Medicaid [id number] ANSI-Medicaid [id number] ANSI-Medicare Part B [id number] ANSI-Medicaid [id number] ANSI-Medicare Part B [id number] TODAYS OPTIONS [id number] SP [id number] ANSI-Medicare Part B [id number] ANSI-Medicaid [id number] ANSI-Medicare Part B [id number] ANSI-Medicaid [id number] [place] Med[place] [id number] Self [id number] [place] [id number] Self [id number] Medicare [facility] Medicare Primary [id number] Self [id number] [place] [id number] Self [id number] Today's Options Medicare Commercial [id number] Self [id number] ANSI-Medicaid [id number] ANSI-Medicare Part B [id number] ANSI-Medicare Part B [id number] ANSI-Medicaid [id number] ANSI-Medicare Part B [id number] ANSI-Medicaid [id number] ANSI-Medicaid [id number] ANSI-Medicare Part B [id number] Medicare [facility] Medigap Part B [id number] Self [id number] Todays Options Commercial [id number] Self [id number] Medicare [facility] Medigap Part B [id number] Self [id number] Medicare [facility] Medigap Part B [id number] Self [id number] Medicare [facility] Medigap Part B [id number] Self [id number] Medicare [facility] Medigap Part B [id number] Self [id number] [place] B [id number] Self [id number] Medicare [facility] Medicare Primary [id number] Self [id number] [place] [id number] Self [id number] [place] [facility] [place] [id number] Self [id number] Today's Options Medicare Commercial [id number] Self [id number] TODAYS OPTIONS [id number] SP [id number] MEDICARE [id number] SP [id number] A [place] [id number] SP [id number] [place] Part B [id number] Self [id number] [place] Hospicegap Part B [id number] Self [id number] [place] Hosp[place] Part B [id number] Self [id number] [place] Hospicegap Part B [id number] Self [id number] Medicare [facility] Medigap Part B [id number] Self [id number] TODAYS OPTIONS [id number] SP [id number] MEDICAID [id number] SP [id number] Todays Options Commercial Self [place] Med[place] Part B Self [facility] ([facility] Commercial Hmo [place]ig[place] B Self Medicare [facility] Medigap Part B Self Todays Options Commercial Self TODAYS OPTIONS [id number] SP [id number] [place] Med[place] B Self [facility] [place] Self Medicare [facility] Medicare Primary [place] Med[place] B Self Today's Options Medicare Commercial Self AMER PROG TODAYS OPTIONS G [id number] Self [id number] MEDICARE UNAVAILABLE SP UNAVAILA BLE [place] MEDICARE [id number] SP [id number] [place] [facility] F [id number] SELF [id number] Todays Options Medicare F [id number] SELF [id number] [place] Medicaid/CHP/FHP Medigap Part B Self Today's Option Medicare Commercial Self TODAYS OPTIONS [id number] SP [id number] MEDICARE [id number] SP [id number] B SELFPAY 5 UNAVAILABLE 1 UNAVAILA BLE MEDICAID 3 [id number] 1 [id number] MEDICARE 4 [id number] 1 [id number] B MEDICARE P [id number] S [id number] B MEDICAID REF AMBULAT W UNAVAILABLE UNAVAILABLE [id number] W UNAVAILABLE UNAVAILA BLE Problems, Conditions, and Diagnoses Code Display Name Description Problem Type Effective Dates Data Source(s) F33.0 Major depressive disorder, recurrent, mi ld Major Depressive Disorder, Recurrent episode, Mild Condition 07/24/2020 12:00:00 AM EST [facility] ([facility]) F41.9 Anxiety disorder, unspecified Unspecified Anxiety Diso rder Condition 07/24/2020 12:00:00 AM EST [facility] ([facility]) [id number] FH: Thyroid disorder FH: Thyroid disorder Problem 07/22/2020 12:00:00 AM EST MED[facility] ([facility]) 93091743 Kidney disease Kidney disease Problem 07/22/2020 12:00: 00 AM EST MEDENT ([facility]) [id number] Essential hypertension Essential hypertension Problem 07/22/2020 12:00:00 AM EST MEDENT ([facility]) [id number] Gout Gout Problem 07/22/2020 12:00:00 AM ES T MEDENT ([facility]) [id number] Gastroesophageal reflux disease Gastroesophageal reflux disease Problem 07/22/2020 12:00:00 AM EST MEDENT ([facility]) 83180900 Diabetes mellitus Diabetes mellitus Problem 07/22/2020 12:00:00 AM EST MEDENT ([facility]) [id number] Mild depression Mild depression Problem 07/22/2020 12:0 0:00 AM EST MEDENT ([facility]) [id number] Congestive heart failure Congestive heart failure Prob ashvin 07/22/2020 12:00:00 AM EST MEDENT ([facility]) 101734358 Cataract Cataract Problem 07/22/2020 12:00:00 AM ES T MEDENT ([facility]) 12786060 Chronic bronchitis Chronic bronchitis Problem 12:00:00 AM EST MEDENT ([facility]) [id number] Transfusion of blood product Transfusion of blood prod uct Problem 07/22/2020 12:00:00 AM EST MEDENT ([facility]) [id number] Low back pain Low back pain Problem 07/22/2020 12:00:00 AM EST MEDENT ([facility]) [id number] Asthma Asthma Problem 07/22/2020 12:00:00 AM ES T MEDENT ([facility]) 0418642 Arthritis Arthritis Problem 07/22/2020 12:00:00 AM ES T MED[facility] ([facility]) 37796573 Anxiety Anxiety Problem 07/22/2020 12:00:00 AM ES T MED[facility] ([facility]) [id number] Anemia Anemia Problem 07/22/2020 12:00:00 AM ES T MEDENT ([facility]) J44.1 [id number] COPD with exacerbation Problem 06/18/2020 12 :00:00 AM EST eCW1 ([facility]) I73.9 [id number] Peripheral vascular disease Problem 09/19/19 12:00:00 AM EST eCW1 ([facility]) I73.9 [id number] Peripheral vascular disease Problem 09/19/19 12:00:00 AM EST eCW1 ([facility]) Surgeries/Procedures Procedure Description Date Indications Data Source(s) OFFICE OUTPATIENT VISIT 15 MINUTES 07/24 12:00:00 AM EST - 07/24/2020 12:00:00 AM EST [facility] ([facility]) OFFICE OUTPATIENT VISIT 15 MINUTES 07/24/2020 12:00:00 AM EST [facility] ([facility]) [facility] Telemed E/M Lvl 3--Est pt 05/15/2020 12:00:00 AM EDT - 05/15/2020 12:00:00 AM EDT [facility] ([facility]) [facility] Telemed E/M Lvl 3--Est pt 05/15/2020 12:00:00 AM E DT [facility] ([facility]) Mammogram 01/29/2020 12:00:00 AM EDT M EDENT ([facility] [employer] [employer] [facility]) ARTHROCENTESIS ASPIR&/INJECTION MAJOR JT/BURSA 12:00:00 AM EDT MEDENT ([facility]) X-Ray Hip Unilateral With Pelvis 2-3 Views 01/17/2020 12:00:00 AM EDT MEDENT ([facility]) [facility] Telemed E/M Lvl 3--Est pt 01/11/2020 12:00:00 AM EDT - 01/11/2020 12:00:00 AM EDT [facility] ([facility]) Telemed A/O 30" 01/11/2020 12:00:00 AM EDT [facility] ([facility]) [facility] Telemed E/M Lvl 3--Est pt 01/11/2020 12:00:00 AM E DT [facility] ([facility]) Spirometry 12/28/2019 12:00:00 AM EDT M BRITTANY ([facility]) ESTABILISHED PATIENT [facility] FAC[facility] CHARGE 12:00:00 AM EDT eCW1 ([facility]) [facility] Telemed E/M Lvl 3--Est pt 11/15/2019 12:00:00 AM EDT - 11/15/2019 12:00:00 AM EDT [facility] ([facility]) [facility] Telemed E/M Lvl 3--Est pt 11/15/2019 12:00:00 AM E DT [facility] ([facility]) OFFICE OUTPATIENT VISIT 15 MINUTES 10/04 12:00:00 AM EST - 10/05/2019 12:00:00 AM EST [facility] ([facility]) OFFICE OUTPATIENT VISIT 15 MINUTES 10/05/2019 12:00:00 AM EST [facility] ([facility]) ARTHROCENTESIS ASPIR&/INJECTION MAJOR JT/BURSA 12:00:00 AM EST MEDENT ([facility]) Annual wellness visit, includes a person alized prevention plan of service (pps), subsequent visit 09/19/2019 12:00:00 AM EST eCW 1 ([facility]) Office Visit, Est Pt., Level 4 PC 09/19/2019 12:00:00 AM EST eCW1 ([facility]) Office Visit, Est Pt., Level 2 FC 09/19/2019 12:00:00 AM EST eCW1 ([facility]) INJECTION 1 TENDON SHEATH/LIGAMENT APONEUROSIS 020 12:00:00 AM EST MED[facility] ([facility] ) PARING/CUTTING BENIGN HYPERKERATOTIC LESION 2-4 2019 12:00:00 AM EST [facility] ([facility] DEBRIDEMENT NAIL ANY METHOD 6/> 08/21/2019 12:00:00 AM EST [facility] ([facility] REVSC OPN/PRQ TIB/SHANEKA W/ANGIOPLASTY UNI 08/15/2019 12 :00:00 AM EST MEDENT ([facility], ) REVSC OPN/PRQ TIB/SHANEKA W/ANGIOPLASTY UNI EA VSL 2019 12:00:00 AM EST MEDENT ([facility], ) Angiography Extremity Unilateral 08/15/2019 12:00:00 A M EST MEDENT ([facility], ) Angiography Selective, Each Addtl Vessel Studied After Exam 08/15/2019 12:00:00 AM EST MED[facility] ([facility], ) Moderate Sedation Services; Same Phys Intl 15 Mins; PT >= 5 Years 08/15/2019 12:00:00 AM EST MED[facility] ([facility], ) OFFICE OUTPATIENT VISIT 15 MINUTES 08/10 12:00:00 AM EST - 08/10/2019 12:00:00 AM EST [facility] ([facility]) OFFICE OUTPATIENT VISIT 15 MINUTES 08/10/2019 12:00:00 AM EST [facility] ([facility]) Results ID Date Data Source [id number] 09/05/2020 12:00:00 AM EST [facility] Name Value Range Interpretation Code Description Data Britney rce(s) Supporting Document(s) SARS-CoV2 Rapid Antigen Negative [facility] This lab was reported by Jose R mar. ID Date Data Source [id number] 04/17/2020 12:00:00 PM EDT [facility] Name Value Range Interpretation Code Description Data Britney rce(s) Supporting Document(s) SARS coronavirus 2 RNA [facility] This lab was ordered by [facility] and reported by [facility]. ID Date Data Source [id number] 01/05/2020 11:10:00 AM EDT [facility] Name Value Range Interpretation Code Description Data Britney rce(s) Supporting Document(s) SARS CORONAVIRUS 2 RNA [facility] This lab was ordered by [facility] and reported by [facility]. ID Date Data Source [id number] 12/28/2019 01:13:00 PM EDT MED[facility] ([facility]) Name Value Range Interpretation Code Description Data Britney rce(s) Supporting Document(s) PDFReport Laboratory test result MEDENT ([facility]) FVC-Pred 2.34 L MED[facility] ([facility]) FVC-Pre 1.70 L [facility] ([facility]) Fev1-Pred 1.74 L [facility] ([facility]) FVC-LLN 1.73 L [facility] ([facility]) FVC-%Pred-Pre 72 L MED[facility] ([facility]) Fev1-Pre 1.37 L [facility] ([facility]) Fev1-LLN 1.23 L [facility] ([facility]) Fev1-%Pred-Pre 78 L [facility] ([facility]) Fev6-Pre 1.70 L [facility] ([facility]) Fev6-Pred 2.21 L [facility] ([facility]) Fev6-%Pred-Pre 76 L [facility] ([facility]) Dta3duu-Zynr 75 % [facility] ([facility]) Fev6-LLN 1.62 L [facility] ([facility]) Giq8zpe-Jff 81 % [facility] ([facility]) Lqi3dqx-LWJ 65 % [facility] ([facility]) Bmy3tnm-%Pred-Pre 107 % MED[facility] ([facility]) Bso0nqc-Zfai 95 % [facility] ([facility]) Zln2mhw-Ztk 100 % [facility] ([facility]) FEFMax-Pred 4.65 L/E/sec MED[facility] ([facility]) Exb6vrw-%Pred-Pre 105 % [facility] ([facility]) FEFMax-%Pred-Pre 82 L/E/sec [facility] ([facility]) FEFMax-Pre 3.82 L/E/sec [facility] ([facility]) FEFMax-LLN 3.14 L/E/sec [facility] ([facility]) Nbc7499-Hgel 1.44 L/E/sec MED[facility] ([facility]) Ahq6965-Dbo 1.38 L/E/sec [facility] ([facility]) Hyc0850-%Pred-Pre 96 L/E/sec MED[facility] ([facility]) ExpTime-Pre 6.20 sec MED[facility] ([facility]) Ixs4909-JAA 0.35 L/E/sec [facility] ([facility]) Fnc1kvy4-Fuvo 78 % [facility] ([facility]) Vdd9ovh1-Dny 81 % [facility] ([facility]) Ybn4ngh3-BVL 70 % [facility] ([facility]) Tyc0bsk8-%Pred-Pre 102 % [facility] ([facility]) ID Date Data Source [id number] 12/19/2019 09:30:00 AM EDT [facility] Name Value Range Interpretation Code Description Data Britney rce(s) Supporting Document(s) SARS CORONAVIRUS 2 RNA [facility] This lab was ordered by [facility] and reported by [facility]. ID Date Data Source [id number] 08/15/2019 06:45:00 AM EST [facility] ([facility]) Name Value Range Interpretation Code Description Data Britney rce(s) Supporting Document(s) Glucose, Fasting 119 mg/dL 70-100 Above high normal M EDENT ([facility]) Creatinine For GFR 1.35 mg/dL 0.55-1.30 Above high normal [facility]) Glomerular Filtration Rate 40.8 Normal (applies to n on-numeric results) [facility] ([facility], ) <content>Units are mL/min/1.73 m2</content>
<content></content>
<content>Chronic Kidney Disease Staging per NKF:</content>
<content></content>
<content>Stage I & II GFR >=60 Normal to Mildly Decreased</content>
<content>Stage III GFR 30- 59 Moderately Decreased</content>
<content>Stage IV GFR 15-29 Severely Decreased</content>
<content>Stage V GFR <15 Very Little GFR Left</content>
<content>ESRD GFR <15 on CARDIAC MONITOR TECHNICIAN</content>
<content></content> Blood Urea Nitrogen 25 mg/dL 7-18 Above high normal [facility] ([facility], ) Potassium Serum 3.8 meq/L 3.5-5.1 Normal (applies to non-numeric results) [facility] ([facility], ) Sodium Level 143 meq/L 136-145 Normal (applies to non-numeric res ults) [facility] ([facility]) Carbon Dioxide Level 30 meq/L 21-32 Normal (applies to non-num vaishali results) [facility] ([facility]) Chloride Level 105 meq/L 98-107 Normal (applies to non-numeric r esults) [facility] ([facility]) Anion Gap 8 meq/L 8-16 Normal (applies to non-numeric resul ts) [facility]) Calcium Level 9.0 mg/dL 8.8-10.2 Normal (applies to non-numeric re sults) [facility] ([facility]) Ast/Sgot 9 U/L 7-37 Normal (applies to non-numeric resul ts) [facility] ([facility]) Alt/SGPT 8 U/L 12-78 Below low normal [facility] ([facility]) Alkaline Phosphatase 103 U/L 45-117 Normal (applies to non-num vaishali results) [facility] ([facility]) Total Protein 6.0 GM/DL 6.4-8.2 Below low normal MEDEN T ([facility]) Bilirubin,Total 0.3 mg/dL 0.2-1.0 Normal (applies to non-numeric results) [facility] ([facility]) Albumin/Globulin Ratio 1.07 1.00-1.93 Normal (applies to non-numeric results) [facility] ([facility]) Albumin 3.1 GM/DL 3.2-5.2 Below low normal [facility] ( [facility]) ID Date Data Source [id number] 08/15/2019 06:45:00 AM EST [facility] ([facility]) Name Value Range Interpretation Code Description Data Britney rce(s) Supporting Document(s) White Blood Count 10.0 10 4.0-10.0 Normal (applies to non-numeri c results) [facility] ([facility]) Red Blood Count 3.28 10 4.00-5.40 Below low normal [facility] ([facility]) Hematocrit 30.3 % 36.0-47.0 Below low normal [facility] ( [facility]) Hemoglobin 9.3 g/dL 12.0-15.5 Below low normal [facility] ( [facility]) Mean Corpuscular HGB Conc 30.7 g/dL 32.0-36.5 Below low normal [facility] ([facility]) Mean Corpuscular Hemoglobin 28.4 pg 27.0-33.0 Norm al (applies to non-numeric results) [facility] ([facility]) Mean Corpuscular Volume 92.4 fl 80.0-96.0 Normal ( applies to non-numeric results) [facility]) Red Cell Distribution Width 14.2 % 11.5-14.5 Norm al (applies to non-numeric results) [facility] ([facility]) Platelet Count, Automated 239 10 150-450 Normal (applies to non-numeric results) [facility] ([facility], ) Nucleated Red Blood Cell % 0.0 % 0-0 Normal (applies to n on-numeric results) [facility] ([facility], ) Procedure Social History Code Duration Value Status Description Data Source(s ) Smoking 08/18/2020 12:00:00 AM EST Former Smoker completed Former Smoker eCW1 ([facility]) Smoking 08/18/2020 12:00:00 AM EST Former Smoker completed Former Smoker eCW1 ([facility]) Smoking 07/24/2020 12:00:00 AM EST Unknown if ever smoked comp leted Unknown if ever smoked [facility] ([facility]) Smoking 07/22/2020 12:00:00 AM EST Patient is a former smoker completed Patient is a former smoker [facility] ([facility]) Smoking 07/01/2020 12:00:00 AM EST Non-Smoker, Non-Drink er, Non-Drug User completed Non-Smoker, Non-Drinker, Non-Drug User [facility] ([facility] [employer]) Smoking 06/18/2020 12:00:00 AM EST Former Smoker completed Former Smoker eCW1 ([facility]) Smoking 06/18/2020 12:00:00 AM EST Former Smoker completed Former Smoker eCW1 ([facility]) Smoking 06/18/2020 12:00:00 AM EST Former Smoker completed Former Smoker eCW1 ([facility]) Smoking 06/18/2020 12:00:00 AM EST Former Smoker completed Former Smoker eCW1 ([facility]) Smoking 06/18/2020 12:00:00 AM EST Former Smoker completed Former Smoker eCW1 ([facility]) Smoking 06/18/2020 12:00:00 AM EST Former Smoker completed Former Smoker eCW1 ([facility]) Smoking 06/18/2020 12:00:00 AM EST Former Smoker completed Former Smoker eCW1 ([facility]) Smoking 05/15/2020 12:00:00 AM EDT Unknown if ever smoked comp leted Unknown if ever smoked [facility] ([facility]) Smoking 05/08/2020 12:00:00 AM EDT Former Smoker completed Former Smoker eCW1 ([facility]) Smoking 05/08/2020 12:00:00 AM EDT Former Smoker completed Former Smoker eCW1 ([facility]) Smoking 05/08/2020 12:00:00 AM EDT Former Smoker completed Former Smoker eCW1 ([facility]) Smoking 04/01/2020 12:00:00 AM EDT Patient is a former smoker completed Patient is a former smoker MED[facility] ([facility], ) Smoking 01/24/2020 12:00:00 AM EDT Former Smoker completed Former Smoker eCW1 ([facility]) Smoking 01/24/2020 12:00:00 AM EDT Former Smoker completed Former Smoker eCW1 ([facility]) Smoking 01/24/2020 12:00:00 AM EDT Former Smoker completed Former Smoker eCW1 ([facility]) Smoking 01/23/2020 12:00:00 AM EDT Former Smoker completed Former Smoker eCW1 ([facility]) Smoking 01/11/2020 12:00:00 AM EDT Unknown if ever smoked comp leted Unknown if ever smoked [facility] ([facility]) Smoking 01/08/2020 12:00:00 AM EDT Former Smoker completed Former Smoker eCW1 ([facility]) Smoking 01/08/2020 12:00:00 AM EDT Former Smoker completed Former Smoker eCW1 ([facility]) Smoking 11/15/2019 12:00:00 AM EDT Unknown if ever smoked comp leted Unknown if ever smoked [facility] ([facility]) Smoking 10/05/2019 12:00:00 AM EST Unknown if ever smoked comp leted Unknown if ever smoked [facility] ([facility]) Smoking 08/10/2019 12:00:00 AM EST Unknown if ever smoked comp leted Unknown if ever smoked [facility] ([facility]) Vital Signs ID Date Data Source UNK Name Value Range Interpretation Code Description Data Source(s) Body mass index (BMI) [Ratio] 38.7 kg/m2 38.7 k g/m2 MED[facility] ([facility]) Body height 61 [in_i] 61 [in_i] MED[facility] ([facility]) 5'1" Body weight 205.00 [lb_av] 205.00 [lb_av] MEDEN T ([facility]) Body temperature 98.5 [degF] 98.5 [degF] MEDENT ([facility]) Oxygen saturation in Arterial blood by Pulse oximetry 98 % 98 % MED[facility] ([facility]) Respiratory rate 16 /min 16 /min MED[facility] ( [facility]) Heart rate 66 /min 66 /min MED[facility] ([facility]) Diastolic blood pressure 78 mm[Hg] 78 mm[Hg] MED[facility] ([facility]) Systolic blood pressure 130 mm[Hg] 130 mm[Hg] M EDENT ([facility]) Diastolic blood pressure 0 mm[Hg] Normal (applies to non-numeric results) 0 mm[Hg] [facility] ([facility]) Systolic blood pressure 0 mm[Hg] Normal (applies t o non-numeric results) 0 mm[Hg] [facility] ([facility]) Body mass index (BMI) [Ratio] 0.00 kg/m2 No rmal (applies to non-numeric results) 0.00 kg/m2 [facility] Body weight Measured 0.00 lbs Normal (applies to n on-numeric results) 0.00 lbs [facility] ([facility]) Body height 0.00 in Normal (applies to non-numeric resu lts) 0.00 in [facility] ([facility]) Oxygen saturation in Arterial blood by Pulse oximetry 94 % 94 % MEDENT ([facility]) Respiratory rate 20 /min 20 /min MED[facility] ( [facility]) Heart rate 84 /min 84 /min MEDENT ([facility]) Diastolic blood pressure 68 mm[Hg] 68 mm[Hg] MED[facility] ([facility]) Systolic blood pressure 127 mm[Hg] 127 mm[Hg] M EDENT ([facility]) Body surface area Derived from formula 1.85 m2 1.85 m2 MED[facility] ([facility] [employer] [employer] [facility]) Body mass index (BMI) [Ratio] 42.1 kg/m2 42.1 k g/m2 [facility] ([facility] [employer] [employer] [facility] [facility]) Body weight 205.00 [lb_av] 205.00 [lb_av] MEDEN T ([facility] [employer] [employer]) Body height 58.5 [in_i] 58.5 [in_i] MEDENT ([facility] [employer]ORDIN[employer]) 4'10.50" Diastolic blood pressure 56 mm[Hg] 56 mm[Hg] [facility] ([facility] [employer] [employer]) Systolic blood pressure 148 mm[Hg] 148 mm[Hg] M EDENT ([facility] [employer]) Diastolic blood pressure 58 mm[Hg] 58 mm[Hg] eCW1 ([facility]) Systolic blood pressure 128 mm[Hg] 128 mm[Hg] e CW1 ([facility]) Body temperature 97 [degF] 97 [degF] eCW1 ([facility]) Respiratory rate 18 /min 18 /min eCW1 ([facility]) Heart rate 94 /min 94 /min eCW1 ([facility]) Body mass index (BMI) [Ratio] 38.22 kg/m2 38.22 kg/m2 W1 ([facility]) Body height 62 [in_i] 62 [in_i] eCW1 ([facility]) Body weight 209 [lb_av] 209 [lb_av] eCW1 ([facility]) Diastolic blood pressure 0 mm[Hg] Normal (applies to non-numeric results) 0 mm[Hg] [facility] ([facility]) Systolic blood pressure 0 mm[Hg] Normal (applies t o non-numeric results) 0 mm[Hg] [facility] ([facility]) Body mass index (BMI) [Ratio] 0.00 kg/m2 No rmal (applies to non-numeric results) 0.00 kg/m2 [facility] ([facility]) Body weight Measured 0.00 lbs Normal (applies to n on-numeric results) 0.00 lbs [facility] ([facility]) Body height 0.00 in Normal (applies to non-numeric resu lts) 0.00 in [facility] ([facility]) Diastolic blood pressure 65 mm[Hg] 65 mm[Hg] eCW1 ([facility]) Systolic blood pressure 152 mm[Hg] 152 mm[Hg] e CW1 ([facility]) Body temperature 97.1 [degF] 97.1 [degF] eCW1 ( [facility]) Respiratory rate 18 /min 18 /min eCW1 ([facility]) Heart rate 102 /min 102 /min eCW1 ([facility]) Body mass index (BMI) [Ratio] 38.37 kg/m2 38.37 kg/m2 eCW1 ([facility]) Body height 62 [in_i] 62 [in_i] eCW1 ([facility]) Body weight 209.8 [lb_av] 209.8 [lb_av] eCW1 ([facility]) Body weight 96.163 kg 96.163 kg MEDENT ([facility], ) Body mass index (BMI) [Ratio] 41.4 kg/m2 41.4 k g/m2 MEDENT ([facility], ) Body weight 212.00 [lb_av] 212.00 [lb_av] MEDEN T ([facility], ) Body height 60 [in_i] 60 [in_i] [facility], [facility] 5'0" Diastolic blood pressure 60 mm[Hg] 60 mm[Hg] MEDENT ([facility], ) Systolic blood pressure 104 mm[Hg] 104 mm[Hg] M EDENT ([facility], ) Diastolic blood pressure 0 mm[Hg] Normal (applies to non-numeric results) 0 mm[Hg] Accumedic ([facility]) Systolic blood pressure 0 mm[Hg] Normal (applies t o non-numeric results) 0 mm[Hg] [facility] ([facility]) Body mass index (BMI) [Ratio] 0.00 kg/m2 No rmal (applies to non-numeric results) 0.00 kg/m2 Accumedic ([facility]) Body weight Measured 0.00 lbs Normal (applies to n on-numeric results) 0.00 lbs [facility] ([facility]) Body height 0.00 in Normal (applies to non-numeric resu lts) 0.00 in [facility] ([facility]) Diastolic blood pressure 72 mm[Hg] 72 mm[Hg] eCW1 ([facility]) Systolic blood pressure 165 mm[Hg] 165 mm[Hg] e CW1 ([facility]) Body temperature 97.4 [degF] 97.4 [degF] eCW1 ( [facility]) Respiratory rate 18 /min 18 /min eCW1 ([facility]) Heart rate 82 /min 82 /min eCW1 ([facility]) Body mass index (BMI) [Ratio] 39.98 kg/m2 39.98 kg/m2 eCW1 ([facility]) Body height 62 [in_i] 62 [in_i] eCW1 ([facility]) Body weight 218.6 [lb_av] 218.6 [lb_av] eCW1 ([facility]) Systolic blood pressure 114 mm[Hg] 114 mm[Hg] M EDENT ([facility], ) Body weight 98.431 kg 98.431 kg [facility] Body mass index (BMI) [Ratio] 42.4 kg/m2 42.4 k g/m2 MEDENT ([facility], ) Body weight 217.00 [lb_av] 217.00 [lb_av] MEDEN T ([facility], ) Body height 60 [in_i] 60 [in_i] [facility], [facility] 5'0" Body temperature 99.1 [degF] 99.1 [degF] [facility] ([facility], ) Oxygen saturation in Arterial blood by Pulse oximetry 92 % 92 % [facility] ([facility], ) Room Air Heart rate 104 /min 104 /min [facility] ([facility]) Diastolic blood pressure 68 mm[Hg] 68 mm[Hg] MEDENT ([facility]) Diastolic blood pressure 60 mm[Hg] 60 mm[Hg] eCW1 ([facility]) Systolic blood pressure 143 mm[Hg] 143 mm[Hg] e CW1 ([facility]) Body temperature 96.5 [degF] 96.5 [degF] eCW1 ( [facility]) Respiratory rate 18 /min 18 /min eCW1 ([facility]) Heart rate 92 /min 92 /min eCW1 ([facility]) Body mass index (BMI) [Ratio] 40.34 kg/m2 40.34 kg/m2 eCW1 ([facility]) Body height 62 [in_us] 62 [in_us] eCW1 ([facility]) Body weight Measured 220.6 [lb_av] 220.6 [lb_av ] eCW1 ([facility]) Diastolic blood pressure 0 mm[Hg] Normal (applies to non-numeric results) 0 mm[Hg] [facility] ([facility]) Systolic blood pressure 0 mm[Hg] Normal (applies t o non-numeric results) 0 mm[Hg] [facility] ([facility]) Body mass index (BMI) [Ratio] 0.00 kg/m2 No rmal (applies to non-numeric results) 0.00 kg/m2 [facility] ([facility]) Body weight Measured 0.00 lbs Normal (applies to n on-numeric results) 0.00 lbs [facility] ([facility]) Body height 0.00 in Normal (applies to non-numeric resu lts) 0.00 in [facility] ([facility]) Diastolic blood pressure 0 mm[Hg] Normal (applies to non-numeric results) 0 mm[Hg] [facility] ([facility]) Systolic blood pressure 0 mm[Hg] Normal (applies t o non-numeric results) 0 mm[Hg] [facility] Body mass index (BMI) [Ratio] 0.00 kg/m2 No rmal (applies to non-numeric results) 0.00 kg/m2 [facility] ([facility]) Body weight Measured 212.00 lbs Normal (applies to n on-numeric results) 212.00 lbs [facility] ([facility]) Body height 0.00 in Normal (applies to non-numeric resu lts) 0.00 [facility]) Body weight 97.070 kg 97.070 kg [facility] ([facility], ) Body mass index (BMI) [Ratio] 41.8 kg/m2 41.8 k g/m2 [facility] ([facility], ) Body weight 214.00 [lb_av] 214.00 [lb_av] MEDEN T ([facility], ) Body height 60 [in_i] 60 [in_i] [facility] ([facility], ) 5'0" Diastolic blood pressure 62 mm[Hg] 62 mm[Hg] [facility], ) Systolic blood pressure 122 mm[Hg] 122 mm[Hg] M EDENT ([facility]) Diastolic blood pressure 64 mm[Hg] 64 mm[Hg] eCW1 ([facility]) Systolic blood pressure 116 mm[Hg] 116 mm[Hg] e CW1 ([facility]) Body temperature 97.5 [degF] 97.5 [degF] eCW1 ( [facility]) Respiratory rate 18 /min 18 /min eCW1 ([facility]) Heart rate 85 /min 85 /min eCW1 ([facility]) Body mass index (BMI) [Ratio] 39.06 kg/m2 39.06 kg/m2 W1 ([facility]) Body height 62 [in_us] 62 [in_us] eCW1 ([facility]) Body weight Measured 213.6 [lb_av] 213.6 [lb_av ] eCW1 ([facility]) Body mass index (BMI) [Ratio] 42.0 kg/m2 42.0 k g/m2 MEDENT ([facility]) Body weight 215.00 [lb_av] 215.00 [lb_av] MEDEN T ([facility]) Body height 60 [in_i] 60 [in_i] MEDENT ([facility]) 5'0" Body temperature 97.9 [degF] 97.9 [degF] MEDENT ([facility]) Diastolic blood pressure 0 mm[Hg] Normal (applies to non-numeric results) 0 mm[Hg] [facility]umed[facility] ([facility]) Systolic blood pressure 0 mm[Hg] Normal (applies t o non-numeric results) 0 mm[Hg] [facility] ([facility]) Body mass index (BMI) [Ratio] 0.00 kg/m2 No rmal (applies to non-numeric results) 0.00 kg/m2 [facility] ([facility]) Body weight Measured 0.00 lbs Normal (applies to n on-numeric results) 0.00 lbs [facility] ([facility]) Body height 0.00 in Normal (applies to non-numeric resu lts) 0.00 in [facility] ([facility]) Patient Treatment Plan of Care Planned Activity Planned Date Details Description Data Source (s) doxycycline hyclate 100 MG Oral Capsule 06/18/2020 12:00:00 AM EST eCW1 ([facility]) Prednisone 10 MG Oral Tablet 06/18/2020 12:00:00 AM EST eCW1 ([facility]) doxycycline hyclate 100 MG Oral Capsule 06/18/2020 12:00:00 AM EST eCW1 ([facility]) Prednisone 10 MG Oral Tablet 06/18/2020 12:00:00 AM EST eCW1 ([facility]) doxycycline hyclate 100 MG Oral Capsule 06/18/2020 12:00:00 AM EST eCW1 ([facility]) Prednisone 10 MG Oral Tablet 06/18/2020 12:00:00 AM EST eCW1 ([facility]) doxycycline hyclate 100 MG Oral Capsule 06/18/2020 12:00:00 AM EST eCW1 ([facility]) doxycycline hyclate 100 MG Oral Capsule 06/18/2020 12:00:00 AM EST eCW1 ([facility]) Prednisone 10 MG Oral Tablet 06/18/2020 12:00:00 AM EST eCW1 ([facility]) doxycycline hyclate 100 MG Oral Capsule 06/18/2020 12:00:00 AM EST eCW1 ([facility]) Prednisone 10 MG Oral Tablet 06/18/2020 12:00:00 AM EST eCW1 ([facility]) Prednisone 10 MG Oral Tablet 06/18/2020 12:00:00 AM EST eCW1 ([facility]) Prednisone 10 MG Oral Tablet 06/18/2020 12:00:00 AM EST eCW1 ([facility]) doxycycline hyclate 100 MG Oral Capsule 06/18/2020 12:00:00 AM EST eCW1 ([facility]) Prednisone 10 MG Oral Tablet 06/18/2020 12:00:00 AM EST eCW1 ([facility]) doxycycline hyclate 100 MG Oral Capsule 06/18/2020 12:00:00 AM EST eCW1 ([facility]) Prednisone 10 MG Oral Tablet 06/18/2020 12:00:00 AM EST eCW1 ([facility]) doxycycline hyclate 100 MG Oral Capsule 06/18/2020 12:00:00 AM EST eCW1 ([facility]) Senna 8.6 MG 02/21/2020 12:00:00 AM EDT e CW1 ([facility]) Senna 8.6 MG 02/21/2020 12:00:00 AM EDT e CW1 ([facility]) Zofran ODT 4 MG 01/24/2020 12:00:00 AM EDT eCW1 ([facility]) Zofran ODT 4 MG 01/24/2020 12:00:00 AM EDT eCW1 ([facility]) Zofran ODT 4 MG 01/24/2020 12:00:00 AM EDT eCW1 ([facility]) Hospital bed 09/19/2019 12:00:00 AM EST e CW1 ([facility])
[2020-09-20 15:47] LABS: BASO % 0.1 % (0.0-1.0); EOS # 0.1 10^3/uL (0.0-0.5); EOS % 1.9 % (0.0-3.0); HEMOGLOBIN 8.6 g/dl (12.0-15.5); LYMPH # 1.5 10^3/uL (1.5-5.0); LYMPH % 19.4 % (24.0-44.0); MEAN CORPUSCULAR HEMOGLOBIN 29.5 pg (27.0-33.0); MEAN CORPUSCULAR HGB CONC 31.9 g/dl (32.0-36.5); MEAN CORPUSCULAR VOLUME 92.5 fl (80.0-96.0); MONO # 0.6 10^3/uL (0.0-0.8); MONO % 7.5 % (2.0-8.0); NEUTROPHILS # 5.3 10^3/uL (1.5-8.5); NEUTROPHILS % 70.6 % (36.0-66.0); PLATELET COUNT, AUTOMATED 180 10^3/uL (150-450); RED BLOOD COUNT 2.92 10^6/uL (4.00-5.40); WHITE BLOOD COUNT 7.5 10^3/uL (4.0-10.0)
[2020-09-20 15:57] LABS: INR 1.03; PROTHROMBIN TIME 13.7 SECONDS (12.5-14.3)
[2020-09-20 16:17] LABS: ALBUMIN 2.5 GM/DL (3.2-5.2); ALT/SGPT 10 U/L (12-78); BILIRUBIN,DIRECT < 0.1 MG/DL (0.0-0.2); BILIRUBIN,TOTAL 0.2 MG/DL (0.2-1.0); BLOOD UREA NITROGEN 36 MG/DL (7-18); CALCIUM LEVEL 8.3 MG/DL (8.8-10.2); CARBON DIOXIDE LEVEL 31 MEQ/L (21-32); CHLORIDE LEVEL 105 MEQ/L (98-107); CK-MB VALUE MASS 1.2 NG/ML (<3.6); CPK CREATINE PHOSPHOKINASE 68 U/L (26-192); CREATININE FOR GFR 1.77 MG/DL (0.55-1.30); GLOMERULAR FILTRATION RATE 29.7 (>39); GLUCOSE, FASTING 97 MG/DL (70-100); MB/CK RELATIVE INDEX 1.76 (< OR =4); NT-PRO BNP 593 PG/ML (<450); POTASSIUM SERUM 3.5 MEQ/L (3.5-5.1); SODIUM LEVEL 142 MEQ/L (136-145); TOTAL PROTEIN 5.5 GM/DL (6.4-8.2); TROPONIN I < 0.02 NG/ML (< 0.10)
[2020-09-20 16:59] VITALS: BP 149/69
--- NOTE | 2020-09-21 20:44 | ECGEPIP ---
[facility] - ED Test Date: 2020-09-20 Pat Name: YESICA JACKSON Department: Room: - Gender: Female Supervisor Landscape: : 1945 Requested By: ARDEN BILLINGSLEY Order Number: [id number] Reading MD: Janiya Stuart Measurements Intervals [place] Rate: 83 P: 79 [place]: 240 QRS: 256 QRSD: 112 T: -11 QT: 408 QTc: 479 Interpretive Statements Sinus rhythm with 1st degree AV block baseline artifact may affect interpretation Right bundle branch block similar 09/15/20 Electronically Signed on 09-21-2020 20:44:48 EST by Janiya Stuart
== END 2020-09-20 17:08 | disposition home or self-care (01) ==
LOC: EDBD 14:26 → M ED 14:26
DX: B34.9 Viral infection, unspecified (principal); I44.0 Atrioventricular block, first degree; I45.10 Unspecified right bundle-branch block; J44.9 Chronic obstructive pulmonary disease, unspecified; E66.01 Morbid (severe) obesity due to excess calories; Z79.4 Long term (current) use of insulin; Z79.899 Other long term (current) drug therapy; Z88.0 Allergy status to penicillin; Z88.2 Allergy status to sulfonamides; Z88.5 Allergy status to narcotic agent; Z88.8 Allergy status to other drugs, medicaments and biological substances; Z91.89 Other specified personal risk factors, not elsewhere classified

== ENCOUNTER → 2020-09-23 | Outpatient (REF) | payer MEDICARE, MEDICAID ==
[2020-09-23 14:05] LABS: BASO % 0.4 % (0.0-1.0); EOS # 0.2 10^3/uL (0.0-0.5); EOS % 2.6 % (0.0-3.0); HEMOGLOBIN 8.5 g/dl (12.0-15.5); LYMPH # 1.5 10^3/uL (1.5-5.0); LYMPH % 22.2 % (24.0-44.0); MEAN CORPUSCULAR HEMOGLOBIN 28.9 pg (27.0-33.0); MEAN CORPUSCULAR HGB CONC 31.5 g/dl (32.0-36.5); MEAN CORPUSCULAR VOLUME 91.8 fl (80.0-96.0); MONO # 0.5 10^3/uL (0.0-0.8); MONO % 6.6 % (2.0-8.0); NEUTROPHILS # 4.7 10^3/uL (1.5-8.5); NEUTROPHILS % 67.8 % (36.0-66.0); PLATELET COUNT, AUTOMATED 179 10^3/uL (150-450); RED BLOOD COUNT 2.94 10^6/uL (4.00-5.40)
[2020-09-23 14:29] LABS: HEMOGLOBIN A1c 6.3 %
[2020-09-23 14:48] LABS: CREATININE, URINE 80.1 MG/DL; MALB URINE SIEMENS 20.9 MG/L
[2020-09-23 14:56] LABS: ALBUMIN 2.6 GM/DL (3.2-5.2); BILIRUBIN,TOTAL 0.3 MG/DL (0.2-1.0); CALCIUM LEVEL 8.5 MG/DL (8.8-10.2); CHOLESTEROL RISK RATIO 2.672 (<5); CREATININE FOR GFR 1.73 MG/DL (0.55-1.30); GLOMERULAR FILTRATION RATE 30.5 (>39); POTASSIUM SERUM 3.7 MEQ/L (3.5-5.1); PTH INTACT 40.9 PG/ML (18.5-88.0); THYROID STIMULATING HORMONE 0.07 uIU/ML (0.358-3.740); TOTAL 25(OH) VITAMIN D 32.6 NG/ML (30.0-100.0); TOTAL PROTEIN 5.6 GM/DL (6.4-8.2)
== END ==
LOC: M PLALAB 09:35
PROVIDERS: ATTEND Internal Medicine
DX: N18.31 Chronic kidney disease, stage 3a (principal); D63.8 Anemia in other chronic diseases classified elsewhere; E11.21 Type 2 diabetes mellitus with diabetic nephropathy; E78.00 Pure hypercholesterolemia, unspecified; E03.9 Hypothyroidism, unspecified

== ENCOUNTER → 2020-10-22 | Outpatient (CLI) | payer MEDICARE, MEDICAID ==
[~2020-10-22] MED LIST changes: -PEG1POW PO; +POLY17PO18 PO
--- NOTE | 2020-10-22 16:43 | REP ---
INDICATION: DESHAWN LEG CLAUDICATION W/ ATHSCL OF ART. COMPARISON: Comparison study March 18, 2020.. TECHNIQUE: Bilateral lower extremity arterial Doppler ultrasound. FINDINGS: Ankle brachial indices could not be accomplished on either side due to noncompressible vessels. This was the case previously. Moderate to severe plaquing is observed bilaterally. Decreased flow and monophasic waveforms are seen in the right distal posterior tibial artery. There is a 3-1 velocity ratio stenosis in the right anterior tibial artery. Monophasic waveforms are noted in the left posterior tibial artery proximally. No occlusion or other significant stenosis is appreciated. 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 Monophasic waveform in the posterior tibial artery on the left. <Electronically signed by Froy Mohr > 10/22/20 1163
== END ==
LOC: M RAD 12:47
PROVIDERS: ATTEND Physician Assistant
DX: I70.213 Atherosclerosis of native arteries of extremities with intermittent claudication, bilateral legs (principal)

== ENCOUNTER → 2020-11-27 | Outpatient (CLI) | payer MEDICARE, MEDICAID ==
--- NOTE | 2020-11-27 11:31 | REP ---
INDICATION: RLQ PAIN / MULTIPLE HERNIA REPAIR/ ? HERNIA. COMPARISON: Comparison CT study abdomen pelvis September 15, 2020.. TECHNIQUE: Transabdominal right lower quadrant scanning. FINDINGS: Scanning of the right lower quadrant in the area of pain is performed. No abdominal wall defect is seen to suggest hernia. There is some subcutaneous edema in the region. No fluid collection or mass is seen. A normal appendix is seen beneath the peritoneal lining. No inflammatory changes. IMPRESSION: No evidence of hernia, mass, adenopathy or abnormal fluid collection. Mild subcutaneous edema. Normal appendix seen.. <Electronically signed by Froy Mohr > 11/27/20 1129
== END ==
LOC: M RAD 10:35
PROVIDERS: ATTEND Physician Assistant
DX: R10.31 Right lower quadrant pain (principal); K44.9 Diaphragmatic hernia without obstruction or gangrene; Z87.19 Personal history of other diseases of the digestive system

== ENCOUNTER 2020-12-15 23:32 | Inpatient (IN) | payer MEDICARE, MEDICAID ==
[~2020-12-15] VITALS: Ht 149.9 cm; Wt 94.2 kg
[2020-12-16] MEDS ORDERED: FAMOTIDINE INJ 20MG/2ML VIAL (S0028 PER 1) IVP ONE (00:35)
[2020-12-16] MEDS ORDERED: NS 1,000 ML IV ONE (00:35)
[2020-12-16] MEDS ORDERED: ONDANSETRON 4MG/2ML VIAL IV ONE (00:35)
[2020-12-16 00:45] LABS: BASO # 0.1 10^3/uL (0.0-0.2); BASO % 0.3 % (0.0-1.0); EOS # 0.2 10^3/uL (0.0-0.5); HEMATOCRIT 32.4 % (36.0-47.0); HEMOGLOBIN 10.1 g/dl (12.0-15.5); LYMPH % 10.5 % (24.0-44.0); MEAN CORPUSCULAR HEMOGLOBIN 29.2 pg (27.0-33.0); MEAN CORPUSCULAR HGB CONC 31.2 g/dl (32.0-36.5); MEAN CORPUSCULAR VOLUME 93.6 fl (80.0-96.0); MONO # 1.2 10^3/uL (0.0-0.8); MONO % 6.3 % (2.0-8.0); NEUTROPHILS # 15.4 10^3/uL (1.5-8.5); NEUTROPHILS % 81.4 % (36.0-66.0); PLATELET COUNT, AUTOMATED 288 10^3/uL (150-450); RED BLOOD COUNT 3.46 10^6/uL (4.00-5.40); WHITE BLOOD COUNT 18.9 10^3/uL (4.0-10.0)
[2020-12-16 00:59] LABS: ALBUMIN 3.6 GM/DL (3.2-5.2); ALT/SGPT 15 U/L (12-78); BILIRUBIN,DIRECT < 0.1 MG/DL (0.0-0.2); BILIRUBIN,TOTAL 0.2 MG/DL (0.2-1.0); BLOOD UREA NITROGEN 52 MG/DL (7-18); CALCIUM LEVEL 10.3 MG/DL (8.8-10.2); CARBON DIOXIDE LEVEL 28 MEQ/L (21-32); CHLORIDE LEVEL 105 MEQ/L (98-107); CPK CREATINE PHOSPHOKINASE 143 U/L (26-192); CREATININE FOR GFR 2.24 MG/DL (0.55-1.30); GLOMERULAR FILTRATION RATE 22.6 (>39); GLUCOSE, FASTING 130 MG/DL (70-100); LIPASE 594 U/L (73-393); POTASSIUM SERUM 3.5 MEQ/L (3.5-5.1); SODIUM LEVEL 142 MEQ/L (136-145); TOTAL PROTEIN 6.9 GM/DL (6.4-8.2); TROPONIN I < 0.02 NG/ML (< 0.10)
--- NOTE | 2020-12-16 01:25 | REPVR ---
PROCEDURE INFORMATION: Exam: XR Complete Acute Abdomen Series Exam date and time: 12/16/2020 1:09 AM Age: 75 years old Clinical indication: Abdominal pain; Acute TECHNIQUE: Imaging protocol: XR complete acute abdomen series, including 2 or more views of the abdomen and a single view chest. COMPARISON: HI PORTABLE CHEST X-RAY 09/20/2020 2:58 PM FINDINGS: Tubes, catheters and devices: Prosthetic left shoulder. Lungs: There are no interval infiltrates. Pleural spaces: Normal. No pleural effusions. No pneumothorax. Heart/Mediastinum: The heart and mediastinum are unchanged. Gastrointestinal tract: Normal. No bowel dilation. Intraperitoneal space: Normal. No free air. Bones/joints: Status post lower cervical fusion. Soft tissues: Normal. IMPRESSION: Essentially stable chest since 09/20/2020. No acute interval process is identified. Electronically signed by: Christophe Jones On 12/16/2020 01:24:30 AM
[2020-12-16 01:36] LABS: INR 0.94; PROTHROMBIN TIME 12.8 SECONDS (12.5-14.3)
[2020-12-16 01:37] LABS: PARTIAL THROMBOPLASTIN TIME 23.5 SECONDS (24.2-38.5)
[2020-12-16] MEDS ORDERED: metroNIDAZOLE 500 MG in IV 1 EA IV ONE (03:50)
[2020-12-16] MEDS ORDERED: CIPROFLOXACIN 400 MG in IV 1 EA IV ONE (03:50)
[2020-12-16] MEDS ORDERED: GLUCOSE 4GM CHEW TABLET PO PRN (03:55)
[2020-12-16] MEDS ORDERED: GLUCAGON INJ 1MG VIAL SC PRN (03:55)
[2020-12-16] MEDS ORDERED: DEXTROSE 50% 50 ML SYRINGE IV PRN (03:55)
[2020-12-16] MEDS ORDERED: MOM 30ML SUSPENSION UDC PO PRN (03:55)
[2020-12-16] MEDS ORDERED: MAALOX 30 ML SUSP *UDC PO PRN (03:55)
--- NOTE | 2020-12-16 04:02 | HPEPDOC ---
[facility] Medical History & Physical Date of Admission December 16, 2020 Date of Service: December 16, 2020 Primary Care Physician: CINDY ALFARO PA-C Attending Physician: CAMERON OLIVIER MD History and Physical TIME OF SERVICE: 445am CHIEF COMPLAINT: black diarrhea HISTORY OF PRESENT ILLNESS: This 75 yr old F presented w c/o black diarrhea and vomiting. The diarrhea was proceeded by abdominal cramps but she denies having overt abdominal pain, fever or chills prior to the episode. She has not eaten much all day; after the episode she checked her sugar which was 40. Per stool guaiac was positive. REVIEW OF SYSTEMS: 12-point review of systems negative except as listed in HPI PAST MEDICAL/ SURGICAL HISTORY: COPD, SAMUEL not tolerating CPAP, morbid obesity, PVD, DLP, DJD, gout, IDDM 2 w nephropathy / retinopathy, NANETTE, CKD3, hypothyroidism, anxiety, depression, OA, bilateral hip surgeries, tubal ligation, hysterectomy, ventral hernias, carpal tunnel surgery, lap za SOCIAL HISTORY: former smoker FAMILY HISTORY: DM, CVA, leukemia ALLERGIES: Please see below. HOME MEDICATIONS: Please see below. PHYSICAL EXAMINATION: Vital Signs Date Time Temp Pulse Resp B/P (MAP) Pulse Ox O2 Delivery O2 Flow Rate FiO2 12/15/20 23:58 147/65 (92) 12/16/20 00:02 79 93 12/16/20 00:06 97.0 16 Room Air GENERAL APPEARANCE: well-nourished and developed /NAD HEENT: EOMI CARDIOVASCULAR: RRR/NMRG LUNGS: CTAB on RA ABDOMEN: contour obese / soft & NT w palpation MUSCULOSKELETAL: NCAT INTEGUMENT: has generalized pallor / is not flushed or diaphoretic NEUROLOGICAL: CN 2-12 intact speech not dysarthric PSYCHIATRIC: A&Ox 3 / able to understand and follow all commands LABORATORY DATA: Immature Granulocyte % (Auto) 0.5, Neutrophils (%) (Auto) 81.4H, Lymphocytes (%) (Auto) 10.5L, Monocytes (%) (Auto) 6.3, Eosinophils (%) (Auto) 1.0, Basophils (%) (Auto) 0.3, Neutrophils # (Auto) 15.4H, Lymphocytes # (Auto) 2.0, Monocytes # (Auto) 1.2H, Eosinophils # (Auto) 0.2, Basophils # (Auto) 0.1, Nucleated Red Blood Cells % (auto) 0.1H, Anion Gap 9, Glomerular Filtration Rate 22.6L, Calcium Level 10.3H, Total Bilirubin 0.2, Direct Bilirubin < 0.1, Aspartate Amino Transf (AST/SGOT) 16, Alanine Aminotransferase (ALT/SGPT) 15, Alkaline Phosphatase 107, Total Creatine Kinase 143, Creatine Kinase MB 4.0H, Creatine Kinase MB Relative Index 2.80, Troponin I < 0.02, Total Protein 6.9, Albumin 3.6, Albumin/Globulin Ratio 1.1L, Lipase 594H 12/16/20 00:03: Bedside Glucose (Misc Panel) 137H 12/16/20 01:14: Prothrombin Time 12.8, Prothromb Time International Ratio 0.94, Activated Partial Thromboplast Time 23.5L, Lactic Acid Level 1.5 12/16/20 01:33: Urine Color YELLOW, Urine Appearance HAZY, Urine pH 5.0, Urine Specific [place] 1.016, Urine Protein 1+H, Urine Glucose (UA) NEGATIVE, Urine Ketones NEGATIVE, Urine Blood NEGATIVE, Urine Nitrite NEGATIVE, Urine Bilirubin NEGATIVE, Urine Urobilinogen 0.2, Urine Leukocyte Esterase TRACEH, Urine WBC (Auto) 5H, Urine RBC (Auto) 3, Urine Hyaline Casts (Auto) 5, Urine Bacteria (Auto) 1+H, Urine Squamous Epithelial Cells 4, Urine Mucus (Auto) SMALL, Urine Sperm (Auto) IMAGING: Abdominal xray IMPRESSION: Essentially stable chest since 09/20/2020. No acute interval process is identified. MICROBIOLOGY: UCx pending ASSESSMENT: is a 75 yr old w COPD, SAMUEL, morbid obesity, PVD, DLP, DJD, OA, gout, IDDM 2 w nephropathy / retinopathy, NANETTE, CKD3, hypothyroidism, anxiety & depression who presented w c/o black diarrhea and will be admitted for evaluation of LGIB & ONEL. PLAN: 1 LGIB Possibly infectious colitis vs diverticular bleed vs angiodysplasia (most common cause of small-bowel bleeding inolderpatients) vs polyps vs colorectal cancer Plan: admit to medical floor / ask RNs to place 2 large bore IVs & check orthostats / CLD w IVF pending GI consult / f/u add on type & screen & iron studies / f/u Hg Q6H and keep Hg >7 / the day time team may consult Gen surg for EGD +/-c-scope / c/w flagyl for possible infectious colitis bc of elevated WBC # (hold oral iron until WBC # normalizes) 2 NN Anemia She has a hx of NANETTE Hg elevated above baseline possibly due to hemo-concetration after vomiting and diarrhea Plan: hold oral iron until WBC # normalizes (infection has been r/o) / see above 3 ONEL on CKD3 Plan: monitor UOP / IVF / f/u renal panel, Ulytes for FENa or FEUrea / renal US / hold nephrotoxic drugs (allopurinol, Lasix, losartan, omeprazole) / Calcitriol / 4 Hypercalcemia 2/2 dehydration Plan: IVF / f/u repeat Ca+ 5 Asymptomatic UTI Plan: no need to treat 6 IDDM w nephropathy / retinopathy Plan f/u accuchecks / hypoglycemia protocol / sliding scale insulin / hold oral anti-glycemic / f/u A1C (target A1C is 7.1 to 8.5% bc she is elderly) / reduce long acting insulin from 14 units daily to 5 units daily while on CLD / Gabapentin 7 COPD Plan: Montelukast, budesonide w formoterol 8 PVD, DLP Plan: Atorvastatin 9 Gout Plan: Allopurinol is on hold 10 Hypothyroidism Plan Levothyroxine 11 Anxiety & depression Plan Buspirone, Sertraline 12 Class 3 obesity Complicates care DVT Px w SCDs bc of LGIB dispo: home after more than 2 midnight's stay Home Medications Scheduled Allopurinol (Zyloprim) 300 Mg Tab, 300 MG PO QPM Atorvastatin Calcium (Atorvastatin Calcium) 40 Mg Tab, 40 MG PO QPM Buspirone HCl (Buspirone HCl) 15 Mg Tablet, 15 MG PO BID NOON AND BEDTIME Calcitriol (Rocaltrol) 0.5 Mcg Cap, 0.5 MCG PO DAILY Ciclopirox Olamine (Ciclopirox) 0.77 % Cre, 1 DOSE TOP BID APPLY TO FEET Cyanocobalamin (Vitamin B-12) (Vitamin B-12) 1,000 Mcg Capsule, 1,000 MCG PO DAILY Docusate Sodium (Docusate Sodium) 100 Mg Cap, 100 MG PO DAILY Ferrous Gluconate (Ferrous Gluconate) 324 Mg Tablet, 324 MG PO DAILY Folic Acid (Folic Acid) 1 Mg Tablet, 1 MG PO QPM Furosemide (Furosemide) 40 Mg Tablet, 40 MG PO BID Gabapentin (Gabapentin) 300 Mg Capsule, 300 MG PO TID Glipizide/Metformin HCl (Glipizide-Metformin 5-500 mg) 1 Tab Tab, 1 TAB PO QPM Insulin Detemir (Levemir) 1 Units/0.01 Ml Susp, 14 UNITS SC DAILY Levothyroxine Sodium (Levothyroxine Sodium) 175 Mcg Tablet, 175 MCG PO QPM Liraglutide (Victoza 2-Neel) 18 Mg/3 Ml Inj, 1.8 MG SC QHS Losartan Potassium (Losartan Potassium) 50 Mg Tab, 50 MG PO DAILY Montelukast Sodium (Montelukast Sodium) 10 Mg Tab, 10 MG PO DAILY Nystatin (Nystatin Powder) 15 Gm Powder, 1 DOSE TOP BID UNDER BREAST Omeprazole (Omeprazole) 40 Mg Cap, 40 MG PO BID Salmeterol/Fluticasone (Advair 500-50 Diskus) 28 Puff/Inhaler Aerp, 1 PUFF INH BID Sennosides/Docusate Sodium (Senna-S Tablet) 1 Tab Tab, 1 TAB PO BID Sertraline Hcl (Zoloft) 100 Mg Tab, 150 MG PO DAILY Umeclidinium [place] (Incruse Ellipta) 62.5 Mcg/Inh Inh, 62.5 MCG INH DAILY Scheduled PRN Albuterol Sulf (Albuterol Sulfate) 2.5 Mg/3 Ml Nebu, 2.5 MG INH QID PRN for SHORTNESS OF BREATH Allergies Coded Allergies: Penicillins (Verified Allergy, Intermediate, rash/swelling, 03/19/19) Sulfa (Sulfonamide Antibiotics) (Verified Allergy, Mild, rash, 03/19/19) TAPE (Verified Allergy, Mild, rash/itching, 03/19/19) tramadol (Verified Allergy, Mild, rash, 03/19/19) pioglitazone (Verified Adverse Reaction, Severe, CHF, 03/19/19) exenatide (Verified Adverse Reaction, Mild, vomit, 03/19/19) A-FIB/CHADSVASC A-FIB History Current/History of A-Fib/PAF?: No Current PO Anticoag Therapy: No CAMERON OLIVIER MD December 16, 2020 04:02
[2020-12-16] MEDS ORDERED: LEVO175T2 PO (04:10)
[2020-12-16] MEDS ORDERED: BUSP15TA47 PO (04:10)
[2020-12-16] MEDS ORDERED: NYST1POW9 TOP (04:11)
[2020-12-16] MEDS ORDERED: B-12100010 PO (04:12)
[2020-12-16] MEDS ORDERED: ALBUTEROL SULFATE 2.5 MG/0.5 ML INH NEB SOLN INH PRN (05:25)
[2020-12-16] MEDS: HumaLOG INSULIN (NovoLOG) PER UNIT SC SCH ×3 (07:18→17:02)
[2020-12-16 07:25] LABS: HEMATOCRIT 25.5 % (36.0-47.0); MEAN CORPUSCULAR HEMOGLOBIN 29.1 pg (27.0-33.0); MEAN CORPUSCULAR HGB CONC 31.4 g/dl (32.0-36.5); MEAN CORPUSCULAR VOLUME 92.7 fl (80.0-96.0); PLATELET COUNT, AUTOMATED 188 10^3/uL (150-450); RED BLOOD COUNT 2.75 10^6/uL (4.00-5.40); WHITE BLOOD COUNT 9.9 10^3/uL (4.0-10.0)
[2020-12-16 07:49] LABS: BLOOD UREA NITROGEN 51 MG/DL (7-18); CALCIUM LEVEL 8.5 MG/DL (8.8-10.2); CARBON DIOXIDE LEVEL 29 MEQ/L (21-32); CHLORIDE LEVEL 110 MEQ/L (98-107); CREATININE FOR GFR 1.94 MG/DL (0.55-1.30); FERRITIN 48 NG/ML (8-252); GLOMERULAR FILTRATION RATE 26.7 (>39); GLUCOSE, FASTING 96 MG/DL (70-100); IRON (FE) 33 UG/DL (50-170); PERCENT SATURATION 11.1 % (13.2-45.0); POTASSIUM SERUM 3.7 MEQ/L (3.5-5.1); SODIUM LEVEL 144 MEQ/L (136-145); TOTAL IRON BINDING CAPACITY 296 UG/DL (250-450)
--- NOTE | 2020-12-16 08:07 | REP ---
INDICATION: devang. COMPARISON: Comparison study January 29, 2020.. TECHNIQUE: Urinary tract sonography. FINDINGS: Scanning at the level of the urinary bladder shows no abnormality. Renal cortical echogenicity pattern is increased bilaterally consistent with chronic medical renal disease. There is no evidence of hydronephrosis on either side. There are multiple cysts a visible in each kidney. The largest on the right measures 2.5 x 3.3 x 2.2 cm, in the lower pole. The largest cyst on the left measures 3.7 x 2.4 x 1.8 cm, upper pole. There is no evidence of renal mass or perirenal fluid. No calculus is appreciated.. . The right kidney measures 10.6 x 4.7 x 5.1 cm. Left renal dimensions are 11.3 x 5.0 x 6.3 cm. IMPRESSION: Increased renal cortical echogenicity pattern consistent with chronic medical renal disease. Bilateral renal cysts.. <Electronically signed by Froy Mohr > 12/16/20 0803
[2020-12-16] MEDS: LEVOTHYROXINE 150MCG TABLET (0.15MG) PO SCH (08:19)
[2020-12-16] MEDS: LEVOTHYROXINE 25MCG TABLET (0.025MG) PO SCH (08:20)
[2020-12-16 08:30] VITALS: BP_SYST 140; BP_SYST 141; BP_SYST 142; BP_DIAS 69; BP_DIAS 71; BP_DIAS 72
[2020-12-16 08:45] LABS: CREATININE,RANDOM URINE 70.1 MG/DL
[2020-12-16] MEDS: SENOKOT S TAB PO SCH ×2 (09:00→21:02)
[2020-12-16] MEDS: DOCUSATE SODIUM 100MG CAPSULE PO SCH (09:00)
[2020-12-16] MEDS: NYSTATIN 100,000 UNITS/GM TOPICAL PWD 15 GM TOP SCH ×2 (09:00→21:00)
[2020-12-16] MEDS: LR 1,000 ML IV SCH ×2 (09:52→21:03)
[2020-12-16] MEDS: GABAPENTIN 300 MG CAP PO SCH ×3 (09:53→21:03)
[2020-12-16] MEDS: SERTRALINE HCL 50 MG TAB PO SCH (09:53)
[2020-12-16] MEDS: MONTELUKAST 10 MG TAB PO SCH (09:53)
[2020-12-16] MEDS: CALCITRIOL 0.25 MCG CAP (S0169) PO SCH (09:53)
[2020-12-16] MEDS: CYANOCOBALAMIN 500 MCG TAB PO SCH (09:54)
[2020-12-16] MEDS: LEVEMIR (INSULIN DETEMIR) 1 UNITS/0.01ML SC SCH (09:54)
[2020-12-16 10:25] LABS: FOLATE > 24.0 NG/ML (>5.4)
[2020-12-16 10:28] LABS: HEMOGLOBIN A1c 6.2 %
[2020-12-16] MEDS: SYMBICORT 160/4.5MCG INHALER 6GM INH SCH ×2 (11:34→20:12)
[2020-12-16 11:55] LABS: VITAMIN B12 LEVEL 1423 PG/ML (247-911)
[2020-12-16] MEDS: busPIRone 5 MG TAB PO SCH ×2 (12:25→21:03)
[2020-12-16] MEDS: metroNIDAZOLE 500 MG in IV 1 EA IV SCH ×2 (12:25→21:04)
[2020-12-16 14:00] VITALS: BP 142/70
--- NOTE | 2020-12-16 15:06 | REP ---
INDICATION: wbc 18 anemic COMPARISON: 09/15/2020 TECHNIQUE: Axial noncontrast images from the lung bases to the pubic symphysis with coronal and sagittal reformations. This CT examination was performed using the following dose reduction techniques: Automated exposure control, adjustment of mA and/or kv according to the patient's size, and use of iterative reconstruction technique. FINDINGS: Lung bases demonstrate trace dependent changes. Liver, spleen, pancreas, and bilateral adrenal glands are normal. Evidence for prior cholecystectomy. Kidneys demonstrate chronic appearing perinephric stranding along with bilateral hypodense and isodense lesions likely representing simple and complex cysts. No hydroureteronephrosis or nephroureterolithiasis. The enteric system is without obstruction or acute inflammatory process. Normal terminal ileum and appendix identified in the right lower quadrant. Colonic and primarily sigmoid diverticulosis noted without acute diverticulitis. Pelvis demonstrates normal bladder and prior hysterectomy. Further evaluation of the pelvis is limited by beam hardening artifact from bilateral hip prosthesis. No ascites. No free air. No obvious adenopathy. Atherosclerotic changes to the aorta and vasculature without aneurysm. Musculoskeletal structures demonstrate degenerative changes without acute osseous abnormality.. IMPRESSION: 1. No obvious acute abdominopelvic pathology. No ascites, no focal inflammatory stranding, or adenopathy. 2. Diverticulosis without acute diverticulitis. 3. Chronic appearing bilateral perinephric stranding and stable renal lesions likely representing simple and complex cysts. <Electronically signed by Roland Graham > 12/16/20 [id number]
[2020-12-16] MEDS: ACETAMINOPHEN TAB 650MG DOSE (2X325MG) PO PRN ×2 (15:41→21:04)
[2020-12-16] MEDS: CIPROFLOXACIN 400 MG in IV 1 EA IV SCH (16:31)
[2020-12-16 20:31] VITALS: BP 140/68
[2020-12-16] MEDS: FOLIC ACID 1 MG TAB PO SCH (21:02)
[2020-12-16] MEDS: ATORVASTATIN 20 MG TAB PO SCH (21:03)
[2020-12-17] MEDS: CIPROFLOXACIN 400 MG in IV 1 EA IV SCH ×2 (05:01→16:32)
[2020-12-17] MEDS: HumaLOG INSULIN (NovoLOG) PER UNIT SC SCH ×4 (05:46→16:36)
[2020-12-17 05:54] VITALS: BP 142/68
[2020-12-17] MEDS: LEVOTHYROXINE 25MCG TABLET (0.025MG) PO SCH (06:19)
[2020-12-17] MEDS: metroNIDAZOLE 500 MG in IV 1 EA IV SCH ×2 (06:19→12:07)
[2020-12-17] MEDS: LEVOTHYROXINE 150MCG TABLET (0.15MG) PO SCH (06:19)
[2020-12-17] MEDS: ACETAMINOPHEN TAB 650MG DOSE (2X325MG) PO PRN ×3 (06:20→21:02)
[2020-12-17 06:26] LABS: HEMATOCRIT 24.5 % (36.0-47.0); HEMOGLOBIN 7.5 g/dl (12.0-15.5); MEAN CORPUSCULAR HEMOGLOBIN 28.6 pg (27.0-33.0); MEAN CORPUSCULAR HGB CONC 30.6 g/dl (32.0-36.5); MEAN CORPUSCULAR VOLUME 93.5 fl (80.0-96.0); PLATELET COUNT, AUTOMATED 167 10^3/uL (150-450); RED BLOOD COUNT 2.62 10^6/uL (4.00-5.40); WHITE BLOOD COUNT 5.6 10^3/uL (4.0-10.0)
[2020-12-17 06:39] LABS: INR 1.02; PROTHROMBIN TIME 13.6 SECONDS (12.5-14.3)
[2020-12-17 06:56] LABS: CALCIUM LEVEL 8.1 MG/DL (8.8-10.2); CREATININE FOR GFR 1.42 MG/DL (0.55-1.30); GLOMERULAR FILTRATION RATE 38.3 (>39); POTASSIUM SERUM 3.5 MEQ/L (3.5-5.1)
[2020-12-17] MEDS: SYMBICORT 160/4.5MCG INHALER 6GM INH SCH ×2 (07:45→20:07)
[2020-12-17] MEDS: NYSTATIN 100,000 UNITS/GM TOPICAL PWD 15 GM TOP SCH ×2 (08:53→21:01)
[2020-12-17] MEDS: SENOKOT S TAB PO SCH ×2 (08:53→21:02)
[2020-12-17] MEDS: DOCUSATE SODIUM 100MG CAPSULE PO SCH (08:53)
[2020-12-17] MEDS: CYANOCOBALAMIN 500 MCG TAB PO SCH (08:54)
[2020-12-17] MEDS: GABAPENTIN 300 MG CAP PO SCH ×3 (08:54→21:02)
[2020-12-17] MEDS: CALCITRIOL 0.25 MCG CAP (S0169) PO SCH (08:54)
[2020-12-17] MEDS: MONTELUKAST 10 MG TAB PO SCH (08:54)
[2020-12-17] MEDS: SERTRALINE HCL 50 MG TAB PO SCH (08:55)
[2020-12-17] MEDS: LEVEMIR (INSULIN DETEMIR) 1 UNITS/0.01ML SC SCH (08:55)
[2020-12-17] MEDS: busPIRone 5 MG TAB PO SCH ×2 (12:07→21:02)
[2020-12-17 14:00] VITALS: BP 141/60
[2020-12-17] MEDS: LR 1,000 ML IV SCH (16:31)
[2020-12-17 19:02] LABS: HEMATOCRIT 24.6 % (36.0-47.0); HEMOGLOBIN 7.6 g/dl (12.0-15.5); MEAN CORPUSCULAR HEMOGLOBIN 28.8 pg (27.0-33.0); MEAN CORPUSCULAR HGB CONC 30.9 g/dl (32.0-36.5); MEAN CORPUSCULAR VOLUME 93.2 fl (80.0-96.0); PLATELET COUNT, AUTOMATED 165 10^3/uL (150-450); RED BLOOD COUNT 2.64 10^6/uL (4.00-5.40); WHITE BLOOD COUNT 6.5 10^3/uL (4.0-10.0)
--- NOTE | 2020-12-17 19:37 | IPNPDOC ---
Date Seen The patient was seen on 12/17/20. Progress Note SUBJECTIVE: H/H remained low at 7.5/24. Consulted surgery: started regular diet, as history obtained stated that this bleeding happens every few months and then she doesn't bleed again. Occult blood neg from study obtained in afternoon-did not see results until later in evening. Further workup can be done as o/p if needed. Denies abdominal pain, fevers, chills, n/v. OBJECTIVE: PHYSICAL EXAMINATION: Vital Signs: Please see below GENERAL APPEARANCE: well-nourished and developed /NAD HEENT: EOMI CARDIOVASCULAR: RRR/NMRG LUNGS: CTAB on RA ABDOMEN: contour obese / soft & NT w palpation MUSCULOSKELETAL: NCAT INTEGUMENT: has generalized pallor / is not flushed or diaphoretic NEUROLOGICAL: CN 2-12 intact speech not dysarthric PSYCHIATRIC: A&Ox 3 / able to understand and follow all commands LABORATORY DATA:Please see below IMAGING: Abdominal xray: Essentially stable chest since 09/20/2020. No acute interval process is identified. CT abd/pelvis: 1. No obvious acute abdominopelvic pathology. No ascites, no focal inflammatory stranding, or adenopathy. 2. Diverticulosis without acute diverticulitis. 3. Chronic appearing bilateral perinephric stranding and stable renal lesions likely representing simple and complex cysts. MICROBIOLOGY: UCx pending ASSESSMENT: is a 75 yr old w COPD, SAMUEL, morbid obesity, PVD, DLP, DJD, OA, gout, IDDM 2 w nephropathy / retinopathy, NANETTE, CKD3, hypothyroidism, anxiety & depression who presented w c/o black diarrhea and will be admitted for evaluation of LGIB & ONEL. PLAN: Dark stools, suspicious for GI bleed (perhaps intermittent and chronic?) vs. 2/2 to home iron -H/H 7.5/24, decreased from admission. No s/s of further bleeding and no dark stools noted here, no abd pain -Baseline Hgb 8-9 since 2018 -Occult blood done afternoon of 12/17/20 NEGATIVE, results not given until later in evening. -CT abd/pelvis above -Per surgery, can w/u as o/p at this time. Has happened in the past -Advanced diet to regular, see how tolerates -Stopped abx as no infectious source suspected -CBC Q12 H, if drops consider transfusion. -Can consider transfusion if Hgb remains <8 by 12/18/20 then d/c home to f/u with PCP, GI or surgery as o/p for scope NANETTE, chronic -Iron low at 33, h/H slightly lower than baseline (see above) - could be dilutional component as all cell lines dropped -If Hgb <8 can transfuse and give Injectafer x 1 dose. -Needs o/p w/u by GI or surgery ONEL on CKD3 - resolved -S/p IVFs -Cr at baseline -Daily labs -Hold nephrotoxic drugs (allopurinol, Lasix, losartan, omeprazole) Hypercalcemia 2/2 dehydration -S/p IVF / f/u repeat Ca+ Asymptomatic UTI -no need to treat IDDM w nephropathy / retinopathy -C/w current treatment plan COPD -Stable on RA -Montelukast, budesonide w formoterol PVD, DLP -Atorvastatin Gout -Allopurinol is on hold Hypothyroidism -Levothyroxine Anxiety & depression -Buspirone, Sertraline Class 3 obesity -Complicates care DVT Px -SCD DISPOSITION: Depending on H/H trend and need for transfusion will determine d/c for 12/18/20. Plan is home at discharge. VS, I&O, 24H, Fishbone Vital Signs/I&O Vital Signs Date Time Temp Pulse Resp B/P (MAP) Pulse Ox O2 Delivery O2 Flow Rate FiO2 12/17/20 14:00 97.7 78 18 141/60 (87) 96 Room Air I&O- Last 24 Hours up to 6 AM 12/17/20 06:00 Intake Total 1570 ml Output Total 1300 ml Balance 270 ml Laboratory Data 24H LABS Laboratory Tests 2 12/17/20 00:29: Bedside Glucose (Misc Panel) 99 12/17/20 05:37: Bedside Glucose (Misc Panel) 140H 12/17/20 05:57: Nucleated Red Blood Cells % (auto) 0.0, Prothrombin Time 13.6, Prothromb Time International Ratio 1.02, Anion Gap 5L, Glomerular Filtration Rate 38.3L, Calcium Level 8.1L 12/17/20 11:45: Bedside Glucose (Misc Panel) 131H 12/17/20 16:20: Bedside Glucose (Misc Panel) 155H 12/17/20 18:14: Nucleated Red Blood Cells % (auto) 0.0 CBC/BMP Laboratory Tests 12/17/20 05:57 12/17/20 18:14 Microbiology Microbiology 12/17/20 Stool Occult Blood (SIVAN) - Final, Complete 12/16/20 Respiratory Virus Panel (PCR) (SIVAN) - Final, Complete 12/16/20 Urine Culture, Received Pending Ashley Burnham MD December 17, 2020 19:37
[2020-12-17] MEDS: ATORVASTATIN 20 MG TAB PO SCH (21:02)
[2020-12-17] MEDS: FOLIC ACID 1 MG TAB PO SCH (21:02)
[2020-12-17 22:00] VITALS: BP 160/60
[2020-12-18 06:00] VITALS: BP 150/72
[2020-12-18] MEDS: HumaLOG INSULIN (NovoLOG) PER UNIT SC SCH ×4 (06:00→16:40)
[2020-12-18] MEDS: LEVOTHYROXINE 150MCG TABLET (0.15MG) PO SCH (06:30)
[2020-12-18] MEDS: LEVOTHYROXINE 25MCG TABLET (0.025MG) PO SCH (06:30)
[2020-12-18 06:31] LABS: HEMATOCRIT 24.6 % (36.0-47.0); HEMOGLOBIN 7.7 g/dl (12.0-15.5); MEAN CORPUSCULAR HEMOGLOBIN 28.8 pg (27.0-33.0); MEAN CORPUSCULAR HGB CONC 31.3 g/dl (32.0-36.5); MEAN CORPUSCULAR VOLUME 92.1 fl (80.0-96.0); PLATELET COUNT, AUTOMATED 181 10^3/uL (150-450); RED BLOOD COUNT 2.67 10^6/uL (4.00-5.40); WHITE BLOOD COUNT 7.5 10^3/uL (4.0-10.0)
[2020-12-18 07:06] LABS: ALBUMIN 2.7 GM/DL (3.2-5.2); BILIRUBIN,TOTAL 0.2 MG/DL (0.2-1.0); CREATININE FOR GFR 1.23 MG/DL (0.55-1.30); GLOMERULAR FILTRATION RATE 45.2 (>39); POTASSIUM SERUM 3.8 MEQ/L (3.5-5.1); TOTAL PROTEIN 5.1 GM/DL (6.4-8.2)
[2020-12-18] MEDS: SYMBICORT 160/4.5MCG INHALER 6GM INH SCH (07:38)
[2020-12-18] MEDS ORDERED: ADVAIR HFA 230/21MCG INHALER INH SCH (08:00)
[2020-12-18] MEDS ORDERED: OMEPRAZOLE 20 MG CAP PO SCH (09:00)
[2020-12-18] MEDS ORDERED: FERROUS GLUCONATE 324 MG TAB PO SCH (09:00)
[2020-12-18] MEDS: SENOKOT S TAB PO SCH (09:00)
[2020-12-18] MEDS: MONTELUKAST 10 MG TAB PO SCH (09:37)
[2020-12-18] MEDS: SERTRALINE HCL 50 MG TAB PO SCH (09:37)
[2020-12-18] MEDS: DOCUSATE SODIUM 100MG CAPSULE PO SCH (09:37)
[2020-12-18] MEDS: LEVEMIR (INSULIN DETEMIR) 1 UNITS/0.01ML SC SCH (09:37)
[2020-12-18] MEDS: GABAPENTIN 300 MG CAP PO SCH ×2 (09:37→16:56)
[2020-12-18] MEDS: CALCITRIOL 0.25 MCG CAP (S0169) PO SCH (09:37)
[2020-12-18] MEDS: CYANOCOBALAMIN 500 MCG TAB PO SCH (09:37)
[2020-12-18] MEDS: NYSTATIN 100,000 UNITS/GM TOPICAL PWD 15 GM TOP SCH (09:50)
[2020-12-18] MEDS: ACETAMINOPHEN TAB 650MG DOSE (2X325MG) PO PRN ×2 (09:50→16:56)
[2020-12-18 11:05] VITALS: BP 120/70
[2020-12-18 11:22] VITALS: BP 136/62
[2020-12-18 12:07] VITALS: BP 138/70
[2020-12-18] MEDS: busPIRone 5 MG TAB PO SCH (12:09)
[2020-12-18 13:28] VITALS: BP 130/68
[2020-12-18 15:00] VITALS: BP 142/82
[2020-12-18 15:11] LABS: HEMATOCRIT 28.3 % (36.0-47.0); HEMOGLOBIN 8.8 g/dl (12.0-15.5); MEAN CORPUSCULAR HEMOGLOBIN 28.8 pg (27.0-33.0); MEAN CORPUSCULAR HGB CONC 31.1 g/dl (32.0-36.5); MEAN CORPUSCULAR VOLUME 92.5 fl (80.0-96.0); PLATELET COUNT, AUTOMATED 186 10^3/uL (150-450); RED BLOOD COUNT 3.06 10^6/uL (4.00-5.40)
[2020-12-18] MEDS ORDERED: FURO40TA2 PO (16:35)
--- NOTE | 2020-12-18 18:56 | DS.PDOC ---
Discharge Summary General Date of Admission December 16, 2020 at 03:55 Date of Discharge 12/18/20 Attending Physician: Ashley Burnham MD Discharge Summary HISTORY OF PRESENT ILLNESS: Pt is a 75 yr old F presented w c/o black diarrhea and vomiting. The diarrhea was proceeded by abdominal cramps but she denies having overt abdominal pain, fever or chills prior to the episode. She has not eaten much all day; after the episode she checked her sugar which was 40. Per Dr. Miguel stool guaiac was positive. Patient was admitted for further evaluation of GI bleed. HOSPITAL COURSE: H/H remained low at 7.5/24 after 24 H, no s/s of bleeding sen.Surgery was consulted and a regular diet was started, which she tolerated well. History obtained stated that this bleeding happens every few months and then she doesn't bleed again. Occult blood NEGATIVE from study obtained in afternoon after a dmission, different from admission. Per surgery, further workup like endoscopy/colonoscopy can be done as o/p if needed. On 12/18/20, H/H remained low at 7.7/24 and 1 unit of PRBC was given. Iron was noted to be low. She is on daily iron and stated that she could not tolerated BID as o/p previously. Post- transfusion Hgb 8.8 and patient remained stable. Cr was wnl. Decision was made to d/c home with follow up with surgical clinic after discharge to discuss further plans for investigating GI bleed (i.e. colonoscopy or EGD). It was recommended she also be followed closely by your PCP with your blood levels (CBC) and iron. She would benefit from iron infusions after discharge. She is advised to call PCP office and request a hospital discharge follow up appointment for within 1-2 weeks. At time of discharge she denied dysuria, fever, chills, lightheadedness, dizziness, headache, n/v. PAST MEDICAL/ SURGICAL HISTORY: COPD, SAMUEL not tolerating CPAP, morbid obesity, PVD, DLP, DJD, gout, IDDM 2 w nephropathy / retinopathy, NANETTE, CKD3, hypothyroidism, anxiety, depression, OA, bilateral hip surgeries, tubal ligation, hysterectomy, ventral hernias, carpal tunnel surgery, lap za SOCIAL HISTORY: former smoker FAMILY HISTORY: DM, CVA, leukemia DISCHARGE MEDS: Please see below PHYSICAL EXAMINATION: Vital Signs: Please see below GENERAL APPEARANCE: well-nourished and developed /NAD HEENT: EOMI CARDIOVASCULAR: RRR/NMRG LUNGS: CTAB on RA ABDOMEN: contour obese / soft & NT w palpation MUSCULOSKELETAL: NCAT INTEGUMENT: has generalized pallor / is not flushed or diaphoretic NEUROLOGICAL: CN 2-12 intact speech not dysarthric PSYCHIATRIC: A&Ox 3 / able to understand and follow all commands LABORATORY DATA:Please see below IMAGING: Abdominal xray: Essentially stable chest since 09/20/2020. No acute interval process is identified. CT abd/pelvis: 1. No obvious acute abdominopelvic pathology. No ascites, no focal inflammatory stranding, or adenopathy. 2. Diverticulosis without acute diverticulitis. 3. Chronic appearing bilateral perinephric stranding and stable renal lesions likely representing simple and complex cysts. MICROBIOLOGY: UCx pending ASSESSMENT: is a 75 yr old w COPD, SAMUEL, morbid obesity, PVD, DLP, DJD, OA, gout, IDDM 2 w nephropathy / retinopathy, NANETTE, CKD3, hypothyroidism, anxiety & depression who presented w c/o black diarrhea and will be admitted for evaluation of LGIB & ONEL. PLAN: Dark stools, suspicious for GI bleed (perhaps intermittent and chronic?) -Hgb after 1 unit PRBC 8.8. No s/s of further bleeding and no dark stools noted here, no abd pain -Baseline Hgb 8-9 since 2018 -Occult blood done afternoon of 12/17/20 NEGATIVE -CT abd/pelvis above -Per surgery, can w/u as o/p at this time. She can f/u with their clinic after d/c -c/w regular diet NANETTE, chronic and possibly 2/2 to chronic GI bleed above -Iron low at 33, H/H now improved -Needs o/p w/u by surgery, f/u with PCP -would advise close f/u of CBC, recommend o/p iron infusion ONEL on CKD3 - resolved -S/p IVFs -Cr at baseline -Resumed home meds with decreased lasix dose, c/w allopurinol, losartan, omeprazole Hypercalcemia 2/2 dehydration -S/p IVF / Asymptomatic UTI -no need to treat IDDM w nephropathy / retinopathy -C/w current treatment plan COPD -Stable on RA -Montelukast, budesonide w formoterol PVD, DLP -Atorvastatin Gout -Allopurinol is on hold Hypothyroidism -Levothyroxine Anxiety & depression -Buspirone, Sertraline Class 3 obesity -Complicates care DISPOSITION: D/c home with f/u with surgery clinic, to call PCP office after d/c. TIME SPENT ON DISCHARGE:35 minutes. Vital Signs/I&Os Vital Signs Date Time Temp Pulse Resp B/P (MAP) Pulse Ox O2 Delivery O2 Flow Rate FiO2 12/18/20 15:00 98.6 87 17 142/82 95 Room Air I&O- Last 24 Hours up to 6 AM 12/18/20 06:00 Intake Total 1840 ml Output Total 700 ml Balance 1140 ml Laboratory Data Labs 24H Laboratory Tests 2 12/17/20 20:19: Bedside Glucose (Misc Panel) 128H 12/18/20 00:50: Bedside Glucose (Misc Panel) 124H 12/18/20 05:39: Nucleated Red Blood Cells % (auto) 0.0, Anion Gap 4L, Glomerular Filtration Rate 45.2, Calcium Level 9.0, Total Bilirubin 0.2, Aspartate Amino Transf (AST/SGOT) 12, Alanine Aminotransferase (ALT/SGPT) 12, Alkaline Phosphatase 78, Total Protein 5.1#L, Albumin 2.7#L, Albumin/Globulin Ratio 1.1L 12/18/20 11:31: Bedside Glucose (Misc Panel) 129H 12/18/20 14:53: Nucleated Red Blood Cells % (auto) 0.0 12/18/20 16:30: Bedside Glucose (Misc Panel) 118H CBC/BMP Laboratory Tests 12/18/20 05:39 12/18/20 14:53 FSBS Laboratory Tests Test 12/17/20 20:19 12/18/20 00:50 12/18/20 11:31 12/18/20 16:30 Range/Units Bedside Glucose (Misc Panel) 128 124 129 118 83-110 MG/DL Microbiology Microbiology 12/17/20 Stool Occult Blood (SIVAN) - Final, Complete 12/16/20 Respiratory Virus Panel (PCR) (SIVAN) - Final, Complete 12/16/20 Urine Culture - Final, Complete Escherichia Coli Discharge Medications Scheduled Allopurinol (Zyloprim) 300 Mg Tab, 300 MG PO QPM, (Reported) Atorvastatin Calcium (Atorvastatin Calcium) 40 Mg Tab, 40 MG PO QPM, (Reported) Buspirone HCl (Buspirone HCl) 15 Mg Tablet, 15 MG PO BID, (Reported) NOON AND BEDTIME Calcitriol (Rocaltrol) 0.5 Mcg Cap, 0.5 MCG PO DAILY, (Reported) Ciclopirox Olamine (Ciclopirox) 0.77 % Cre, 1 DOSE TOP BID, (Reported) APPLY TO FEET Cyanocobalamin (Vitamin B-12) (Vitamin B-12) 1,000 Mcg Capsule, 1,000 MCG PO DAILY, (Reported) Docusate Sodium (Docusate Sodium) 100 Mg Cap, 100 MG PO DAILY, (Reported) Ferrous Gluconate (Ferrous Gluconate) 324 Mg Tablet, 324 MG PO DAILY, (Reported) Folic Acid (Folic Acid) 1 Mg Tablet, 1 MG PO QPM, (Reported) Furosemide (Furosemide) 40 Mg Tablet, 40 MG PO DAILY Gabapentin (Gabapentin) 300 Mg Capsule, 300 MG PO TID, (Reported) Glipizide/Metformin HCl (Glipizide-Metformin 5-500 mg) 1 Tab Tab, 1 TAB PO QPM, (Reported) Insulin Detemir (Levemir) 1 Units/0.01 Ml Susp, 14 UNITS SC DAILY, (Reported) Levothyroxine Sodium (Levothyroxine Sodium) 175 Mcg Tablet, 175 MCG PO QPM, (Reported) Liraglutide (Victoza 2-Neel) 18 Mg/3 Ml Inj, 1.8 MG SC QHS, (Reported) Losartan Potassium (Losartan Potassium) 50 Mg Tab, 50 MG PO DAILY, (Reported) Montelukast Sodium (Montelukast Sodium) 10 Mg Tab, 10 MG PO DAILY, (Reported) Nystatin (Nystatin Powder) 15 Gm Powder, 1 DOSE TOP BID, (Reported) UNDER BREAST Omeprazole (Omeprazole) 40 Mg Cap, 40 MG PO BID, (Reported) Salmeterol/Fluticasone (Advair 500-50 Diskus) 28 Puff/Inhaler Aerp, 1 PUFF INH BID, (Reported) Sennosides/Docusate Sodium (Senna-S Tablet) 1 Tab Tab, 1 TAB PO BID, (Reported) Sertraline Hcl (Zoloft) 100 Mg Tab, 150 MG PO DAILY, (Reported) Umeclidinium [place] (Incruse Ellipta) 62.5 Mcg/Inh Inh, 62.5 MCG INH DAILY, (Reported) Scheduled PRN Albuterol Sulf (Albuterol Sulfate) 2.5 Mg/3 Ml Nebu, 2.5 MG INH QID PRN for SHORTNESS OF BREATH, (Reported) Allergies Coded Allergies: Penicillins (Verified Allergy, Intermediate, rash/swelling, 03/19/19) Sulfa (Sulfonamide Antibiotics) (Verified Allergy, Mild, rash, 03/19/19) TAPE (Verified Allergy, Mild, rash/itching, 03/19/19) tramadol (Verified Allergy, Mild, rash, 03/19/19) pioglitazone (Verified Adverse Reaction, Severe, CHF, 03/19/19) exenatide (Verified Adverse Reaction, Mild, vomit, 03/19/19) Ashley Burnham MD December 18, 2020 18:56
[2020-12-18] MEDS ORDERED: HumaLOG INSULIN (NovoLOG) PER UNIT SC SCH (21:00)
== END 2020-12-18 17:00 | disposition home or self-care (01) | DRG 378 ==
LOC: M ED 23:32 → M ED INP 12-16 03:55 → ENRESERV 12-16 06:29 → M MS5PR 12-16 08:35
PROVIDERS: ADMIT Internal Medicine; ATTEND Internal Medicine
PROC: 30233N1 Transfusion of Nonautologous Red Blood Cells into Peripheral Vein, Percutaneous Approach (ICD-10-PCS; principal; 2020-12-18)
DX: K92.2 Gastrointestinal hemorrhage, unspecified (principal); N17.9 Acute kidney failure, unspecified; Z68.41 Body mass index [BMI] 40.0-44.9, adult; N18.30 Chronic kidney disease, stage 3 unspecified; E66.01 Morbid (severe) obesity due to excess calories; J44.9 Chronic obstructive pulmonary disease, unspecified; G47.33 Obstructive sleep apnea (adult) (pediatric); M19.90 Unspecified osteoarthritis, unspecified site; M10.9 Gout, unspecified; E11.51 Type 2 diabetes mellitus with diabetic peripheral angiopathy without gangrene; E11.21 Type 2 diabetes mellitus with diabetic nephropathy; D50.0 Iron deficiency anemia secondary to blood loss (chronic); E03.9 Hypothyroidism, unspecified; E11.319 Type 2 diabetes mellitus with unspecified diabetic retinopathy without macular edema; K57.30 Diverticulosis of large intestine without perforation or abscess without bleeding; F41.9 Anxiety disorder, unspecified; F32.9 Major depressive disorder, single episode, unspecified; E83.51 Hypocalcemia; Z79.899 Other long term (current) drug therapy; Z88.0 Allergy status to penicillin; Z88.2 Allergy status to sulfonamides; Z88.8 Allergy status to other drugs, medicaments and biological substances

== ENCOUNTER → 2020-12-25 | Outpatient (REF) | payer MEDICARE, MEDICAID ==
[~2020-12-25] MED LIST changes: +B-12100010 PO; +BUSP15TA47 PO; +LEVO175T2 PO
[2020-12-25 15:35] LABS: BASO % 0.5 % (0.0-1.0); EOS # 0.2 10^3/uL (0.0-0.5); EOS % 2.6 % (0.0-3.0); HEMATOCRIT 29.2 % (36.0-47.0); HEMOGLOBIN 9.1 g/dl (12.0-15.5); LYMPH # 1.4 10^3/uL (1.5-5.0); LYMPH % 21.8 % (24.0-44.0); MEAN CORPUSCULAR HEMOGLOBIN 28.4 pg (27.0-33.0); MEAN CORPUSCULAR HGB CONC 31.2 g/dl (32.0-36.5); MEAN CORPUSCULAR VOLUME 91.3 fl (80.0-96.0); MONO # 0.5 10^3/uL (0.0-0.8); MONO % 7.5 % (2.0-8.0); NEUTROPHILS # 4.4 10^3/uL (1.5-8.5); NEUTROPHILS % 67.1 % (36.0-66.0); PLATELET COUNT, AUTOMATED 280 10^3/uL (150-450); WHITE BLOOD COUNT 6.6 10^3/uL (4.0-10.0)
[2020-12-25 16:04] LABS: PERCENT SATURATION 21.4 % (13.2-45.0)
== END ==
LOC: M SFHCPLAZ 13:51
PROVIDERS: ATTEND Internal Medicine
DX: K21.9 Gastro-esophageal reflux disease without esophagitis (principal); D63.8 Anemia in other chronic diseases classified elsewhere
CPT/HCPCS: 36415; 82728; 83550; 85025; 99495; G0463

== ENCOUNTER → 2021-01-20 | Outpatient (REF) | payer MEDICARE, MEDICAID ==
[~2021-01-20] MED LIST changes: -DOXY100C37; +DOXY1CAP62; +OMEP40CA4 PO; -OMEP40CA97 PO
[2021-01-20 15:02] LABS: BASO % 0.4 % (0.0-1.0); EOS # 0.2 10^3/uL (0.0-0.5); EOS % 2.2 % (0.0-3.0); HEMATOCRIT 29.1 % (36.0-47.0); HEMOGLOBIN 9.2 g/dl (12.0-15.5); LYMPH # 2.1 10^3/uL (1.5-5.0); LYMPH % 24.5 % (24.0-44.0); MEAN CORPUSCULAR HEMOGLOBIN 29.2 pg (27.0-33.0); MEAN CORPUSCULAR HGB CONC 31.6 g/dl (32.0-36.5); MEAN CORPUSCULAR VOLUME 92.4 fl (80.0-96.0); MONO # 0.5 10^3/uL (0.0-0.8); MONO % 6.2 % (2.0-8.0); NEUTROPHILS # 5.7 10^3/uL (1.5-8.5); NEUTROPHILS % 66.2 % (36.0-66.0); PLATELET COUNT, AUTOMATED 215 10^3/uL (150-450); RED BLOOD COUNT 3.15 10^6/uL (4.00-5.40); WHITE BLOOD COUNT 8.6 10^3/uL (4.0-10.0)
[2021-01-20 15:15] LABS: BILIRUBIN,TOTAL 0.3 MG/DL (0.2-1.0); CALCIUM LEVEL 9.1 MG/DL (8.8-10.2); CREATININE FOR GFR 1.48 MG/DL (0.55-1.30); GLOMERULAR FILTRATION RATE 36.5 (>39); MAGNESIUM LEVEL 1.4 MG/DL (1.8-2.4); POTASSIUM SERUM 3.6 MEQ/L (3.5-5.1); PTH INTACT 19.6 PG/ML (18.5-88.0); THYROID STIMULATING HORMONE 0.919 uIU/ML (0.358-3.740); TOTAL PROTEIN 5.8 GM/DL (6.4-8.2)
== END ==
LOC: M PLALAB 09:21
PROVIDERS: ATTEND Internal Medicine
DX: E11.22 Type 2 diabetes mellitus with diabetic chronic kidney disease (principal); D63.8 Anemia in other chronic diseases classified elsewhere; N18.30 Chronic kidney disease, stage 3 unspecified; E03.9 Hypothyroidism, unspecified

== ENCOUNTER → 2021-02-17 | Outpatient (CLI) | payer MEDICARE, MEDICAID ==
[~2021-02-17] MED LIST changes: +ALBU8.5H INH; +ALLO100T PO; +CHEL100T4 PO
[2021-02-17 13:31] LABS: BASO % 0.4 % (0.0-1.0); EOS # 0.2 10^3/uL (0.0-0.5); EOS % 2.6 % (0.0-3.0); HEMATOCRIT 28.1 % (36.0-47.0); HEMOGLOBIN 8.8 g/dl (12.0-15.5); LYMPH # 1.6 10^3/uL (1.5-5.0); LYMPH % 21.8 % (24.0-44.0); MEAN CORPUSCULAR HEMOGLOBIN 29.3 pg (27.0-33.0); MEAN CORPUSCULAR HGB CONC 31.3 g/dl (32.0-36.5); MEAN CORPUSCULAR VOLUME 93.7 fl (80.0-96.0); MONO # 0.5 10^3/uL (0.0-0.8); NEUTROPHILS # 4.9 10^3/uL (1.5-8.5); NEUTROPHILS % 67.9 % (36.0-66.0); PLATELET COUNT, AUTOMATED 221 10^3/uL (150-450); WHITE BLOOD COUNT 7.3 10^3/uL (4.0-10.0)
[2021-02-17 14:15] LABS: ALBUMIN 3.2 GM/DL (3.2-5.2); BILIRUBIN,TOTAL 0.3 MG/DL (0.2-1.0); CALCIUM LEVEL 9.5 MG/DL (8.8-10.2); CHOLESTEROL RISK RATIO 4.113 (<5); CREATININE FOR GFR 1.42 MG/DL (0.55-1.30); GLOMERULAR FILTRATION RATE 38.3 (>39); MAGNESIUM LEVEL 1.8 MG/DL (1.8-2.4); POTASSIUM SERUM 4.3 MEQ/L (3.5-5.1); PTH INTACT 32.2 PG/ML (18.5-88.0); URIC ACID 4.7 MG/DL (2.6-6.0)
[2021-02-17 14:32] LABS: HEMOGLOBIN A1c 6.3 %
== END ==
LOC: M PLALAB 12:22
PROVIDERS: ATTEND Internal Medicine
DX: E11.22 Type 2 diabetes mellitus with diabetic chronic kidney disease (principal); D63.8 Anemia in other chronic diseases classified elsewhere; E78.00 Pure hypercholesterolemia, unspecified; N18.30 Chronic kidney disease, stage 3 unspecified; M10.9 Gout, unspecified

== ENCOUNTER → 2021-02-24 | Outpatient (CLI) | payer MEDICARE, MEDICAID | LOC: M LABSMTC 11:05 | PROVIDERS: ATTEND Anesthesiology | DX: Z01.812 Encounter for preprocedural laboratory examination (principal); Z20.822 Contact with and (suspected) exposure to COVID-19 ==

== ENCOUNTER 2021-02-28 06:30 | Day surgery (SDC) | payer MEDICARE, MEDICAID ==
[~2021-02-28] VITALS: Ht 152.4 cm; Wt 89.3 kg
[~2021-02-28 06:30] MED LIST changes: +NS 1,000 ML IV ONE
[2021-02-28] MEDS ORDERED: propofoL 200 MG/20 ML VIAL As Ordered ONE (07:05)
[2021-02-28] MEDS ORDERED: LIDOCAINE 2% 100MG/5ML SDV (FOR ANES.) As Ordered ONE (07:06)
--- NOTE | 2021-02-28 08:19 | ROOR ---
Patient Name: Riya Carrasquillo Procedure Date: 02/28/2021 8:05 AM Date of : 1945 Age: 75 Room: [id number] Gender: Female Note Status: Finalized Procedure: Upper GI endoscopy Indications: Melena Providers: Triston Messer MD Referring MD: Morteza Lopez MD Requesting Provider: Medicines: Monitored Anesthesia Care Complications: No immediate complications. Procedure: Pre-Anesthesia Assessment: - The heart rate, respiratory rate, oxygen saturations, blood pressure, adequacy of pulmonary ventilation, and response to care were monitored throughout the procedure. The Endoscope was introduced through the mouth, and advanced to the second part of duodenum. The upper GI endoscopy was accomplished without difficulty. The patient tolerated the procedure well. Findings: Diffuse, white plaques were found in the entire esophagus. Very small (insignificant) Hiatal Hernia. The exam was otherwise without abnormality. Impression: - Esophageal plaques were found, suspicious for mild candidiasis. - Very small (insignificant) Hiatal Hernia. - The examination was otherwise normal. - No specimens collected. Recommendation: - Nystatin suspension 100,000 units PO QID for 10 days. - (the script was sent to your pharmacy on file) Procedure Code(s): --- Professional --- 66827, Esophagogastroduodenoscopy, flexible, transoral; diagnostic, including collection of specimen(s) by brushing or washing, when performed (separate procedure) Diagnosis Code(s): --- Professional --- K22.9, Disease of esophagus, unspecified K92.1, Melena (includes Hematochezia) CPT copyright 2019 [employer]. All rights reserved. The codes documented in this report are preliminary and upon inpatient coder review may be revised to meet current compliance requirements. Triston Messer MD Triston Messer MD 02/28/2021 8:18:27 AM Electronically signed by Triston Messer MD Number of Addenda: 0 Note Initiated On: 02/28/2021 8:05 AM Estimated Blood Loss: Estimated blood loss: none.
--- NOTE | 2021-02-28 08:39 | ROOR ---
Patient Name: Riya Carrasquillo Procedure Date: 02/28/2021 8:05 AM Date of : 1945 Age: 75 Room: [id number] Gender: Female Note Status: Finalized Procedure: Colonoscopy Indications: Melena Providers: Triston Messer MD Referring MD: Morteza Lopez MD Requesting Provider: Medicines: Monitored Anesthesia Care Complications: No immediate complications. Procedure: Pre-Anesthesia Assessment: - The heart rate, respiratory rate, oxygen saturations, blood pressure, adequacy of pulmonary ventilation, and response to care were monitored throughout the procedure. The Colonoscope was introduced through the anus and advanced to 5 cm into the ileum. The colonoscopy was performed without difficulty. The patient tolerated the procedure well. The quality of the bowel preparation was good. Findings: The perianal and digital rectal examinations were normal. Mild sigmoid diverticulosis and small internal hemorrhoids. The exam was otherwise without abnormality on direct and retroflexion views. Impression: - Mild sigmoid diverticulosis and small internal hemorrhoids. - The examination was otherwise normal on direct and retroflexion views. - No specimens collected. Recommendation: - Repeat colonoscopy PRN. Procedure Code(s): --- Professional --- 14089, Colonoscopy, flexible; diagnostic, including collection of specimen(s) by brushing or washing, when performed (separate procedure) Diagnosis Code(s): --- Professional --- K92.1, Melena (includes Hematochezia) CPT copyright 2019 [employer]. All rights reserved. The codes documented in this report are preliminary and upon etl lead review may be revised to meet current compliance requirements. Triston Messer MD Triston Messer MD 02/28/2021 8:39:35 AM Electronically signed by Triston Messer MD Number of Addenda: 0 Note Initiated On: 02/28/2021 8:05 AM Estimated Blood Loss: Estimated blood loss: none.
[2021-02-28 09:01] VITALS: BP 143/61
== END 2021-02-28 09:10 | disposition home or self-care (01) ==
LOC: M OPP 06:30
PROVIDERS: ATTEND Internal Medicine Gastroenterology
DX: K57.30 Diverticulosis of large intestine without perforation or abscess without bleeding (principal); K64.8 Other hemorrhoids; D64.9 Anemia, unspecified; K92.1 Melena; K22.9 Disease of esophagus, unspecified; Z79.899 Other long term (current) drug therapy; Z88.0 Allergy status to penicillin; Z88.1 Allergy status to other antibiotic agents; Z88.2 Allergy status to sulfonamides; Z88.5 Allergy status to narcotic agent; Z91.048 Other nonmedicinal substance allergy status; Z87.19 Personal history of other diseases of the digestive system; Z87.891 Personal history of nicotine dependence

== ENCOUNTER → 2021-03-06 | Outpatient (CLI) | payer MEDICARE, MEDICAID ==
[~2021-03-06] MED LIST changes: -NS 1,000 ML IV ONE
--- NOTE | 2021-03-06 14:58 | REPMRS ---
Patient History The patient states she has not had a clinical breast exam in over a year. Family history of unknown cancer under age 50 in son. Benign excisional biopsy of the left breast. Took unspecified hormones for 2 years. Patient states no breast complaints today. Patient has signed MRS History Sheet. Digital Woman Screen Mammo: March 06, 2021 - Exam #: [id number] Bilateral CC and MLO view(s) were taken. Technologist: Heidy Peter, Technologist Prior study comparison: January 29, 2020, diagnostic bilateral mammo performed at [facility]. October 13, 2018, bilateral digital woman screen mammo performed at [facility]. FINDINGS: There are scattered fibroglandular densities. Screening. Digital screening (2D) mammography was performed bilaterally in the CC and MLO projections. Additionally, breast tomosynthesis (3D mammography) was performed bilaterally in the CC and MLO projections. Todays exam was compared to the prior exam/exams. By history, the patient has no complaints of a palpable breast abnormality or other significant breast complaints. The breasts are unchanged in size and shape. There are no nicole-soft tissue densities or spiculated masses. There is no internal architectural distortion. There are no suspicious nicole-calcific clusters. There are stable, benign, vascular calcifications in both breasts. Skin thickening or nipple retraction is not present. IMPRESSION: BI-RADS Category 2- Benign Findings. There is no evidence of malignant alteration of the breasts. Followup examination recommended in one year. The Volpara volumetric breast density category is B, there are scattered areas of fibroglandular densities. This mammogram was read with the assistance of [facility] [employer],an FDA approved computer aided detection system for mammography. The lifetime Tyrer-Cuzick score is 3.4 % Negative x-ray reports should not delay surgical consultation if a dominant or clinically suspicious mass is present. Not all breast cancers can be identified by mammography. Therefore, we recommend that you continue to perform regular breast self-examination and physical examination and then promptly contact your physician of any concerns or changes. Adenosis and dense breasts may obscure an underlying neoplasm. Assessment: BI-RADS/ACR category 2 mammogram. Benign Findings. Recommendation Routine screening mammogram of both breasts in 1 year. Electronically Signed By: Jay Ellis MD 03/06/21 [id number]
== END ==
LOC: M WHC 13:44
PROVIDERS: ATTEND Obstetrics & Gynecology
DX: Z12.31 Encounter for screening mammogram for malignant neoplasm of breast (principal); R92.2 Inconclusive mammogram

== ENCOUNTER → 2021-03-25 | Outpatient (CLI) | payer MEDICARE, MEDICAID ==
--- NOTE | 2021-03-25 14:26 | REP ---
INDICATION: ATHEROSCLEROSIS COMPARISON: None. TECHNIQUE: Bilateral lower extremity arterial ultrasound with Doppler FINDINGS: All numeric values represent peak systolic velocity in cm/S EC On the right: The ankle brachial index was unobtainable. PURSE FRAMER: 166 biphasic Profunda: 123 biphasic SFA proximal: 118 biphasic SFA mid: 115 biphasic SFA distal: 118 biphasic Popliteal: 90 biphasic MASHA proximal: 48 biphasic Tibioperoneal trunk: 91 biphasic BURIAL AGENT proximal: 42 biphasic BURIAL AGENT distal: 107 biphasic MASHA distal: 40 biphasic On the left: The ankle brachial index is unobtainable PURSE FRAMER: 123 biphasic Profunda: 165 biphasic SFA proximal: 76 biphasic SFA mid: 92 biphasic SFA distal: 96 biphasic Popliteal: 94 biphasic MASHA proximal: 91 biphasic Tibioperoneal trunk: 62 biphasic BURIAL AGENT proximal: 25 biphasic BURIAL AGENT distal: 81 biphasic MASHA distal: 78 biphasic Moderate to severe plaque was seen bilaterally throughout. No significant stenosis was seen bilaterally at this time. IMPRESSION: As above <Electronically signed by Danie Law > 03/25/21 [id number]
== END ==
LOC: M RAD 12:52
PROVIDERS: ATTEND Surgery Vascular Surgery
DX: I70.213 Atherosclerosis of native arteries of extremities with intermittent claudication, bilateral legs (principal)

== ENCOUNTER → 2021-04-08 | Outpatient (CLI) | payer MEDICARE, MEDICAID ==
--- NOTE | 2021-04-08 16:32 | REP ---
INDICATION: SHORTNESS OF BREATH. COMPARISON: 12/16/2020 a frontal view of the chest TECHNIQUE: PA and lateral FINDINGS: Cardiomediastinal silhouette lung marshall are unchanged. No acute patchy parenchymal opacities or pleural effusions have developed. There is no change in the osseous structures. IMPRESSION: There is no evidence of acute cardiopulmonary disease or significant change compared to the prior exam. <Electronically signed by Danie Law > 04/08/21 [id number]
[2021-04-08 18:13] LABS: BASO % 0.2 % (0.0-1.0); EOS # 0.2 10^3/uL (0.0-0.5); EOS % 1.7 % (0.0-3.0); HEMATOCRIT 31.6 % (36.0-47.0); HEMOGLOBIN 9.8 g/dl (12.0-15.5); LYMPH # 2.4 10^3/uL (1.5-5.0); LYMPH % 19.1 % (24.0-44.0); MEAN CORPUSCULAR HEMOGLOBIN 29.5 pg (27.0-33.0); MEAN CORPUSCULAR VOLUME 95.2 fl (80.0-96.0); MONO # 0.8 10^3/uL (0.0-0.8); MONO % 6.4 % (2.0-8.0); NEUTROPHILS # 9.1 10^3/uL (1.5-8.5); NEUTROPHILS % 72.2 % (36.0-66.0); PLATELET COUNT, AUTOMATED 285 10^3/uL (150-450); RED BLOOD COUNT 3.32 10^6/uL (4.00-5.40); WHITE BLOOD COUNT 12.6 10^3/uL (4.0-10.0)
[2021-04-08 18:33] LABS: INR 0.95; PROTHROMBIN TIME 13.1 SECONDS (12.7-14.5)
[2021-04-08 18:34] LABS: PARTIAL THROMBOPLASTIN TIME 27.5 SECONDS (25.9-37.0)
[2021-04-08 18:58] LABS: ALBUMIN 3.3 GM/DL (3.2-5.2); BILIRUBIN,TOTAL 0.2 MG/DL (0.2-1.0); CALCIUM LEVEL 9.5 MG/DL (8.8-10.2); CREATININE FOR GFR 1.4 MG/DL (0.55-1.30); GLOMERULAR FILTRATION RATE 38.9 (>39); MAGNESIUM LEVEL 1.8 MG/DL (1.8-2.4); TOTAL PROTEIN 6.3 GM/DL (6.4-8.2)
== END ==
LOC: M PLAIMG 15:50
PROVIDERS: ATTEND Physician Assistant
DX: R06.02 Shortness of breath (principal); R05 Cough; R06.2 Wheezing; Z86.79 Personal history of other diseases of the circulatory system; T14.8XXA Other injury of unspecified body region, initial encounter
CPT/HCPCS: 36415; 71046; 80053; 83735; 83880; 85025; 85610; 85730; 87426; G0463; U0003

== ENCOUNTER → 2021-06-24 | Outpatient (REF) | payer MEDICARE, MEDICAID ==
[~2021-06-24] MED LIST changes: +CLIN-250; -CLIN300C6; +DOXY-443; -DOXY1CAP62
[2021-06-24 13:48] LABS: BASO # 0.1 10^3/uL (0.0-0.2); BASO % 0.7 % (0.0-1.0); EOS # 0.3 10^3/uL (0.0-0.5); EOS % 3.6 % (0.0-3.0); HEMATOCRIT 29.2 % (36.0-47.0); HEMOGLOBIN 8.8 g/dl (12.0-15.5); LYMPH # 2.4 10^3/uL (1.5-5.0); LYMPH % 32.2 % (24.0-44.0); MEAN CORPUSCULAR HEMOGLOBIN 29.1 pg (27.0-33.0); MEAN CORPUSCULAR HGB CONC 30.1 g/dl (32.0-36.5); MEAN CORPUSCULAR VOLUME 96.7 fl (80.0-96.0); MONO # 0.7 10^3/uL (0.0-0.8); MONO % 9.7 % (2.0-8.0); NEUTROPHILS % 53.5 % (36.0-66.0); PLATELET COUNT, AUTOMATED 200 10^3/uL (150-450); RED BLOOD COUNT 3.02 10^6/uL (4.00-5.40); WHITE BLOOD COUNT 7.5 10^3/uL (4.0-10.0)
[2021-06-24 14:09] LABS: ALBUMIN 3.2 GM/DL (3.2-5.2); BILIRUBIN,TOTAL 0.3 MG/DL (0.2-1.0); CALCIUM LEVEL 9.9 MG/DL (8.8-10.2); CREATININE FOR GFR 1.89 MG/DL (0.55-1.30); GLOMERULAR FILTRATION RATE 27.5 (>39); MAGNESIUM LEVEL 2.2 MG/DL (1.8-2.4); POTASSIUM SERUM 4.7 MEQ/L (3.5-5.1); TOTAL PROTEIN 5.9 GM/DL (6.4-8.2); URIC ACID 4.7 MG/DL (2.6-6.0)
[2021-06-24 14:26] LABS: PTH INTACT 29.4 PG/ML (18.5-88.0)
[2021-06-24 14:32] LABS: HEMOGLOBIN A1c 6.1 %
== END ==
LOC: M SFHCADAM 10:00
PROVIDERS: ATTEND Internal Medicine
DX: E11.21 Type 2 diabetes mellitus with diabetic nephropathy (principal); D63.8 Anemia in other chronic diseases classified elsewhere; E78.00 Pure hypercholesterolemia, unspecified; N18.30 Chronic kidney disease, stage 3 unspecified; M10.9 Gout, unspecified

== ENCOUNTER → 2021-10-29 | Outpatient (REF) | payer MEDICARE, MEDICAID ==
[~2021-10-29] MED LIST changes: -LEVO500T3 PO; +LEVO500T4 PO; +LOSA50TA28 PO; -LOSA50TA88 PO; -MONT10TA10 PO; +MONT10TA97 PO
[2021-10-29 17:00] LABS: BASO % 0.4 % (0.0-1.0); EOS # 0.2 10^3/uL (0.0-0.5); EOS % 2.2 % (0.0-3.0); HEMATOCRIT 27.4 % (36.0-47.0); HEMOGLOBIN 8.5 g/dl (12.0-15.5); LYMPH # 1.7 10^3/uL (1.5-5.0); LYMPH % 20.5 % (24.0-44.0); MEAN CORPUSCULAR HEMOGLOBIN 29.1 pg (27.0-33.0); MEAN CORPUSCULAR VOLUME 93.8 fl (80.0-96.0); MONO # 0.5 10^3/uL (0.0-0.8); MONO % 6.4 % (2.0-8.0); NEUTROPHILS # 5.7 10^3/uL (1.5-8.5); PLATELET COUNT, AUTOMATED 224 10^3/uL (150-450); RED BLOOD COUNT 2.92 10^6/uL (4.00-5.40); WHITE BLOOD COUNT 8.2 10^3/uL (4.0-10.0)
[2021-10-29 17:29] LABS: ALBUMIN 3.2 GM/DL (3.2-5.2); BILIRUBIN,TOTAL 0.2 MG/DL (0.2-1.0); CALCIUM LEVEL 9.4 MG/DL (8.8-10.2); CREATININE FOR GFR 1.7 MG/DL (0.55-1.30); THYROID STIMULATING HORMONE 0.252 uIU/ML (0.358-3.740)
[2021-10-29 18:28] LABS: PTH INTACT 32.4 PG/ML (18.5-88.0)
== END ==
LOC: M SFHCADAM 13:15
PROVIDERS: ATTEND Internal Medicine
DX: E11.21 Type 2 diabetes mellitus with diabetic nephropathy (principal); N18.30 Chronic kidney disease, stage 3 unspecified; E03.9 Hypothyroidism, unspecified; D63.8 Anemia in other chronic diseases classified elsewhere

== ENCOUNTER → 2021-11-05 | Outpatient (REF) | payer MEDICARE, MEDICAID ==
[2021-11-05 14:14] LABS: CREATININE, URINE 44.1 MG/DL; MALB URINE SIEMENS 17.1 MG/L; MAU/CREAT RATIO 38.7 MCG/MG (0.0-30.0)
== END ==
LOC: M SFHCADAM 13:08
PROVIDERS: ATTEND Internal Medicine
DX: E11.21 Type 2 diabetes mellitus with diabetic nephropathy (principal)

== ENCOUNTER → 2021-12-31 | Outpatient (CLI) | payer MEDICAID, MEDICARE ==
[~2021-12-31] MED LIST changes: +ALBU2.5V10 INH; -ALBU83IN INH
[2021-12-31 13:10] LABS: BASO % 0.3 % (0.0-1.0); EOS # 0.2 10^3/uL (0.0-0.5); EOS % 2.3 % (0.0-3.0); HEMATOCRIT 28.1 % (36.0-47.0); HEMOGLOBIN 8.8 g/dl (12.0-15.5); LYMPH # 1.6 10^3/uL (1.5-5.0); LYMPH % 21.2 % (24.0-44.0); MEAN CORPUSCULAR HEMOGLOBIN 29.3 pg (27.0-33.0); MEAN CORPUSCULAR HGB CONC 31.3 g/dl (32.0-36.5); MEAN CORPUSCULAR VOLUME 93.7 fl (80.0-96.0); MONO # 0.7 10^3/uL (0.0-0.8); MONO % 8.7 % (2.0-8.0); NEUTROPHILS # 5.1 10^3/uL (1.5-8.5); NEUTROPHILS % 67.2 % (36.0-66.0); PLATELET COUNT, AUTOMATED 215 10^3/uL (150-450); WHITE BLOOD COUNT 7.5 10^3/uL (4.0-10.0)
[2021-12-31 13:32] LABS: ALBUMIN 3.1 GM/DL (3.2-5.2); BILIRUBIN,TOTAL 0.3 MG/DL (0.2-1.0); CALCIUM LEVEL 9.7 MG/DL (8.8-10.2); CREATININE FOR GFR 1.85 MG/DL (0.55-1.30); GLOMERULAR FILTRATION RATE 28.1 (>39); POTASSIUM SERUM 3.8 MEQ/L (3.5-5.1); TOTAL PROTEIN 6.1 GM/DL (6.4-8.2)
== END ==
LOC: M PLAIMG 10:15
PROVIDERS: ATTEND Physician Assistant
DX: R19.7 Diarrhea, unspecified (principal); N18.30 Chronic kidney disease, stage 3 unspecified; R68.83 Chills (without fever); Z90.49 Acquired absence of other specified parts of digestive tract

== ENCOUNTER → 2022-01-01 | Outpatient (CLI) | payer MEDICARE ==
[2022-01-01 15:39] LABS: ALBUMIN 2.9 GM/DL (3.2-5.2); CREATININE FOR GFR 1.82 MG/DL (0.55-1.30); GLOMERULAR FILTRATION RATE 28.7 (>39)
== END ==
LOC: M PLALAB 11:26
PROVIDERS: ATTEND Physician Assistant
DX: N18.4 Chronic kidney disease, stage 4 (severe) (principal); R74.8 Abnormal levels of other serum enzymes; R19.7 Diarrhea, unspecified

== ENCOUNTER 2022-02-25 10:59 | Emergency (ER) | payer MEDICAID, MEDICARE, OTHER ==
[~2022-02-25] VITALS: Ht 152.4 cm; Wt 95.5 kg
[2022-02-25 12:07] LABS: VENOUS BASE EXCESS 7.7 (-2.0-2.0); VENOUS HCO3 33.7 MEQ/L (23.0-27.0); VENOUS O2 SATURATION 89.4 % (60.0-80.0); VENOUS PARTIAL PRESSURE CO2 55.3 mmHg (38.0-50.0); VENOUS PARTIAL PRESSURE O2 57.7 mmHg (30.0-50.0); VENOUS PH 7.403 UNITS (7.330-7.430); VENOUS STANDARD HCO3 31.4 MEQ/L; VENOUS TOTAL CO2 35.4 MEQ/L (24.0-28.0)
[2022-02-25 12:16] LABS: BASO % 0.3 % (0.0-1.0); EOS # 0.2 10^3/uL (0.0-0.5); HEMATOCRIT 28.3 % (36.0-47.0); HEMOGLOBIN 8.9 g/dl (12.0-15.5); LYMPH # 1.6 10^3/uL (1.5-5.0); LYMPH % 17.5 % (24.0-44.0); MEAN CORPUSCULAR HEMOGLOBIN 29.3 pg (27.0-33.0); MEAN CORPUSCULAR HGB CONC 31.4 g/dl (32.0-36.5); MEAN CORPUSCULAR VOLUME 93.1 fl (80.0-96.0); MONO # 0.6 10^3/uL (0.0-0.8); MONO % 7.1 % (2.0-8.0); NEUTROPHILS # 6.6 10^3/uL (1.5-8.5); NEUTROPHILS % 72.9 % (36.0-66.0); PLATELET COUNT, AUTOMATED 257 10^3/uL (150-450); RED BLOOD COUNT 3.04 10^6/uL (4.00-5.40)
[2022-02-25] MEDS ORDERED: CLOT10TR PO (12:25)
[2022-02-25] MEDS ORDERED: B-121CAP PO (12:25)
[2022-02-25 12:49] LABS: ALBUMIN 3.1 GM/DL (3.2-5.2); ALT/SGPT 8 U/L (12-78); BILIRUBIN,DIRECT < 0.1 MG/DL (0.0-0.2); BILIRUBIN,TOTAL 0.3 MG/DL (0.2-1.0); BLOOD UREA NITROGEN 33 MG/DL (7-18); CALCIUM LEVEL 9.6 MG/DL (8.8-10.2); CARBON DIOXIDE LEVEL 32 MEQ/L (21-32); CHLORIDE LEVEL 102 MEQ/L (98-107); CREATININE FOR GFR 1.75 MG/DL (0.55-1.30); GLUCOSE, FASTING 129 MG/DL (70-100); NT-PRO BNP 530 PG/ML (<450); POTASSIUM SERUM 4.2 MEQ/L (3.5-5.1); SODIUM LEVEL 141 MEQ/L (136-145); THYROID STIMULATING HORMONE 0.583 uIU/ML (0.358-3.740); THYROXINE (T4) 9.2 UG/DL (4.5-12.0); TOTAL PROTEIN 6.1 GM/DL (6.4-8.2)
[2022-02-25] MEDS ORDERED: IPRATROPIUM 0.5MG/ALBUTEROL 2.5MG INH SOL UD 3ML (DUONEB) NEB ONE (13:20)
[2022-02-25] MEDS ORDERED: methylPREDNISolone 125MG 2ML VIAL IV ONE (13:20)
[2022-02-25] MEDS ORDERED: ALBUTEROL SULFATE 2.5 MG/0.5 ML INH NEB SOLN NEB ONE (13:20)
[2022-02-25] MEDS ORDERED: ISOVUE-370 76% 100ML VIAL As Ordered ONE (14:48)
[2022-02-25 16:30] VITALS: BP 144/67
[2022-02-25] MEDS ORDERED: PRED10TA2 PO (17:01)
[2022-02-25 17:18] VITALS: O2SAT 92
== END 2022-02-25 17:18 | disposition home or self-care (01) ==
LOC: M ED 10:59
DX: J44.1 Chronic obstructive pulmonary disease with (acute) exacerbation (principal); I45.2 Bifascicular block; I50.9 Heart failure, unspecified; E11.9 Type 2 diabetes mellitus without complications; I10 Essential (primary) hypertension; J45.909 Unspecified asthma, uncomplicated; J44.9 Chronic obstructive pulmonary disease, unspecified; E78.5 Hyperlipidemia, unspecified; K21.9 Gastro-esophageal reflux disease without esophagitis; N18.30 Chronic kidney disease, stage 3 unspecified; Z79.4 Long term (current) use of insulin; Z79.84 Long term (current) use of oral hypoglycemic drugs; Z79.890 Hormone replacement therapy; Z79.899 Other long term (current) drug therapy; Z88.0 Allergy status to penicillin; Z88.2 Allergy status to sulfonamides; Z88.5 Allergy status to narcotic agent; Z88.8 Allergy status to other drugs, medicaments and biological substances; Z91.89 Other specified personal risk factors, not elsewhere classified
CPT/HCPCS: 71045; 71275; 80048; 80076; 82803; 83605; 83880; 84436; 84443; 84484; 85025; 85379; 87040; 87486; 87581; 87633; 87798; 93005; 93041; 94640; 94760; 96374; 99285; J2930; Q9967

== ENCOUNTER 2022-03-25 10:46 | Emergency (ER) | payer MEDICARE ==
[~2022-03-25] VITALS: Ht 152.4 cm; Wt 93.2 kg
[~2022-03-25 10:46] MED LIST changes: +B-121CAP PO; +LEVO1TAB39 PO; +LEVO1TAB40 PO; -LEVO500T4 PO; -LEVO750T13 PO
[2022-03-25] MEDS ORDERED: CEPH500C PO (13:24)
[2022-03-25 14:37] VITALS: BP 151/77
== END 2022-03-25 14:37 | disposition home or self-care (01) ==
LOC: M ED 10:46
DX: L03.115 Cellulitis of right lower limb (principal); E11.9 Type 2 diabetes mellitus without complications; I50.9 Heart failure, unspecified; I10 Essential (primary) hypertension; N18.9 Chronic kidney disease, unspecified; Z79.4 Long term (current) use of insulin; Z79.84 Long term (current) use of oral hypoglycemic drugs; Z79.890 Hormone replacement therapy; Z79.899 Other long term (current) drug therapy; Z88.0 Allergy status to penicillin; Z88.2 Allergy status to sulfonamides; Z88.5 Allergy status to narcotic agent; Z88.8 Allergy status to other drugs, medicaments and biological substances; Z91.89 Other specified personal risk factors, not elsewhere classified

== ENCOUNTER → 2022-04-10 | Outpatient (CLI) | payer MEDICARE, MEDICAID ==
[~2022-04-10] MED LIST changes: +CEPH500C PO
[2022-04-10 12:52] LABS: HEMATOCRIT 27.9 % (36.0-47.0); HEMOGLOBIN 8.5 g/dl (12.0-15.5); MEAN CORPUSCULAR HEMOGLOBIN 28.2 pg (27.0-33.0); MEAN CORPUSCULAR HGB CONC 30.5 g/dl (32.0-36.5); MEAN CORPUSCULAR VOLUME 92.7 fl (80.0-96.0); PLATELET COUNT, AUTOMATED 252 10^3/uL (150-450); RED BLOOD COUNT 3.01 10^6/uL (4.00-5.40); WHITE BLOOD COUNT 7.8 10^3/uL (4.0-10.0)
[2022-04-10 13:38] LABS: CREATININE, URINE 40.2 MG/DL; MALB URINE SIEMENS 18.5 MG/L
[2022-04-10 13:40] LABS: ALBUMIN 2.7 GM/DL (3.2-5.2); BILIRUBIN,TOTAL 0.2 MG/DL (0.2-1.0); C REACTIVE PROTEIN QUANTITATIV 0.3 MG/DL (0.00-0.30); CHOLESTEROL RISK RATIO 2.5 (<5); CREATININE FOR GFR 1.94 MG/DL (0.55-1.30); FREE T4 0.88 NG/DL (0.76-1.46); GLOMERULAR FILTRATION RATE 26.6 (>39); POTASSIUM SERUM 4.4 MEQ/L (3.5-5.1); THYROID STIMULATING HORMONE 0.403 uIU/ML (0.358-3.740); TOTAL PROTEIN 5.5 GM/DL (6.4-8.2)
[2022-04-10 13:49] LABS: HEMOGLOBIN A1c 6.4 %
[2022-04-10 14:17] LABS: TOTAL 25(OH) VITAMIN D 28.1 NG/ML (30.0-100.0)
== END ==
LOC: M ADAMS 10:54
PROVIDERS: ATTEND Internal Medicine Hematology
DX: E11.3553 Type 2 diabetes mellitus with stable proliferative diabetic retinopathy, bilateral (principal); Z79.899 Other long term (current) drug therapy

== ENCOUNTER → 2022-04-13 | Outpatient (CLI) | payer MEDICARE, MEDICAID ==
[2022-04-13 17:45] LABS: HEMATOCRIT 26.9 % (36.0-47.0); HEMOGLOBIN 8.1 g/dl (12.0-15.5); MEAN CORPUSCULAR HEMOGLOBIN 28.7 pg (27.0-33.0); MEAN CORPUSCULAR HGB CONC 30.1 g/dl (32.0-36.5); MEAN CORPUSCULAR VOLUME 95.4 fl (80.0-96.0); PLATELET COUNT, AUTOMATED 225 10^3/uL (150-450); RED BLOOD COUNT 2.82 10^6/uL (4.00-5.40); WHITE BLOOD COUNT 8.8 10^3/uL (4.0-10.0)
[2022-04-13 19:01] LABS: PERCENT SATURATION 13.7 % (13.2-45.0)
== END ==
LOC: M PLALAB 15:37
PROVIDERS: ATTEND Internal Medicine Hematology
DX: E11.21 Type 2 diabetes mellitus with diabetic nephropathy (principal)

== ENCOUNTER → 2022-05-05 | Outpatient (CLI) | payer MEDICARE, MEDICAID | LOC: M RAD 11:59 | PROVIDERS: ATTEND Physician Assistant | DX: I83.811 Varicose veins of right lower extremity with pain (principal); I87.2 Venous insufficiency (chronic) (peripheral) ==

== ENCOUNTER 2022-05-12 10:06 | Outpatient (CLI) | payer MEDICARE, MEDICAID ==
[~2022-05-12] VITALS: Ht 157.5 cm; Wt 91.2 kg
[~2022-05-12 10:06] MED LIST changes: +ALBUTEROL SULFATE 2.5 MG/0.5 ML INH NEB SOLN INH PRN; +EPINEPHrine INJ 1 MG/ML 1ML AMP IM PRN; +diphenhydrAMINE 50MG/ML VIAL (J1200) IV PRN; +methylPREDNISolone 125MG 2ML VIAL IV PRN
[2022-05-12 10:24] VITALS: BP 190/86
[2022-05-12] MEDS ORDERED: FERRIC CARBOXYMALTOSE INJ 750 MG in NS 250 ML IV ONE (10:30)
[2022-05-12] MEDS ORDERED: NS 1,000 ML IV SCH (10:30)
== END 2022-05-12 11:35 | disposition home or self-care (01) ==
LOC: M INFU 10:06
PROVIDERS: ATTEND Internal Medicine Hematology
DX: D64.9 Anemia, unspecified (principal); Z88.0 Allergy status to penicillin; Z88.2 Allergy status to sulfonamides; Z88.5 Allergy status to narcotic agent; Z88.8 Allergy status to other drugs, medicaments and biological substances
CPT/HCPCS: 96365; J1439

== ENCOUNTER → 2022-07-08 | Outpatient (CLI) | payer MEDICAID, MEDICARE ==
[~2022-07-08] MED LIST changes: -ALBUTEROL SULFATE 2.5 MG/0.5 ML INH NEB SOLN INH PRN; -EPINEPHrine INJ 1 MG/ML 1ML AMP IM PRN; +NYST-38 SS; -NYST50SS SS; -diphenhydrAMINE 50MG/ML VIAL (J1200) IV PRN; -methylPREDNISolone 125MG 2ML VIAL IV PRN
[2022-07-08 17:28] LABS: HEMATOCRIT 29.8 % (36.0-47.0); HEMOGLOBIN 9.3 g/dl (12.0-15.5); MEAN CORPUSCULAR HEMOGLOBIN 30.6 pg (27.0-33.0); MEAN CORPUSCULAR HGB CONC 31.2 g/dl (32.0-36.5); PLATELET COUNT, AUTOMATED 184 10^3/uL (150-450); RED BLOOD COUNT 3.04 10^6/uL (4.00-5.40); WHITE BLOOD COUNT 6.4 10^3/uL (4.0-10.0)
[2022-07-08 19:27] LABS: CREATININE, URINE 21.6 MG/DL
[2022-07-08 19:28] LABS: C REACTIVE PROTEIN QUANTITATIV 0.7 MG/DL (<1.0)
[2022-07-08 19:30] LABS: ALBUMIN 3.2 G/DL (3.2-5.2); BILIRUBIN,TOTAL 0.3 MG/DL (0.3-1.2); CALCIUM LEVEL 9.2 MG/DL (8.3-10.6); CHOLESTEROL RISK RATIO 2.99 (<5); CREATININE FOR GFR 1.97 MG/DL (0.55-1.30); GLOMERULAR FILTRATION RATE 26.2 (>39); HDL CHOLESTEROL 61.8 MG/DL (>40); LDL CHOLESTEROL 89.8 MG/DL (<100); POTASSIUM SERUM 4.9 MMOL/L (3.5-5.1); THYROID STIMULATING HORMONE 2.506 uIU/ML (0.55-4.78); TOTAL PROTEIN 5.9 G/DL (5.7-8.2)
[2022-07-08 19:31] LABS: FERRITIN 142.4 NG/ML (7.3-270.7); FREE T4 1.02 NG/DL (0.89-1.76); TOTAL 25(OH) VITAMIN D 24.1 NG/ML (20.0-100.0)
[2022-07-08 23:34] LABS: HEMOGLOBIN A1c 5.4 % (4.0-6.0)
== END ==
LOC: M PLALAB 15:22
PROVIDERS: ATTEND Internal Medicine Hematology
DX: M89.8X8 Other specified disorders of bone, other site (principal); E11.21 Type 2 diabetes mellitus with diabetic nephropathy; D63.8 Anemia in other chronic diseases classified elsewhere; Z96.643 Presence of artificial hip joint, bilateral

== ENCOUNTER → 2022-08-13 | Outpatient (CLI) | payer MEDICARE | LOC: M LABSMTC 11:13 | PROVIDERS: ATTEND Surgery Vascular Surgery | DX: Z01.812 Encounter for preprocedural laboratory examination (principal); Z20.822 Contact with and (suspected) exposure to COVID-19 ==

== ENCOUNTER → 2022-10-07 | Outpatient (REF) | payer MEDICARE, MEDICAID ==
[2022-10-07 18:35] LABS: POTASSIUM SERUM 4.3 MMOL/L (3.5-5.1)
== END ==
LOC: M LAB REF 17:46
PROVIDERS: ATTEND Internal Medicine Nephrology
DX: I10 Essential (primary) hypertension (principal); N18.4 Chronic kidney disease, stage 4 (severe)

== ENCOUNTER → 2022-10-15 | Outpatient (CLI) | payer MEDICARE, MEDICAID ==
[2022-10-15 14:46] LABS: HEMATOCRIT 30.5 % (36.0-47.0); HEMOGLOBIN 9.4 g/dl (12.0-15.5); MEAN CORPUSCULAR HEMOGLOBIN 30.3 pg (27.0-33.0); MEAN CORPUSCULAR HGB CONC 30.8 g/dl (32.0-36.5); MEAN CORPUSCULAR VOLUME 98.4 fl (80.0-96.0); PLATELET COUNT, AUTOMATED 213 10^3/uL (150-450); WHITE BLOOD COUNT 6.7 10^3/uL (4.0-10.0)
[2022-10-15 15:13] LABS: CREATININE, URINE 39.5 MG/DL; MAU/CREAT RATIO 68.3 MCG/MG (0.0-30.0)
[2022-10-15 15:20] LABS: HEMOGLOBIN A1c 5.6 % (4.0-6.0)
[2022-10-15 15:35] LABS: FREE T4 0.94 NG/DL (0.89-1.76); THYROID STIMULATING HORMONE 3.911 uIU/ML (0.55-4.78)
[2022-10-15 16:24] LABS: C REACTIVE PROTEIN QUANTITATIV 0.7 MG/DL (<1.0)
[2022-10-15 16:26] LABS: ALBUMIN 3.2 G/DL (3.2-5.2); BILIRUBIN,TOTAL 0.3 MG/DL (0.3-1.2); CHOLESTEROL RISK RATIO 2.86 (<5); CREATININE FOR GFR 2.07 MG/DL (0.55-1.30); GLOMERULAR FILTRATION RATE 24.7 (>39); HDL CHOLESTEROL 62.9 MG/DL (>40); LDL CHOLESTEROL 91.5 MG/DL (<100); NON-HDL-C 117.1 MG/DL; POTASSIUM SERUM 4.7 MMOL/L (3.5-5.1); TOTAL PROTEIN 5.8 G/DL (5.7-8.2)
== END ==
LOC: M LABDRWAD 10:57
PROVIDERS: ATTEND Internal Medicine Hematology
DX: E11.21 Type 2 diabetes mellitus with diabetic nephropathy (principal)

== ENCOUNTER 2022-12-14 12:40 | Emergency (ER) | payer MEDICARE, MEDICAID ==
[~2022-12-14] VITALS: Ht 149.9 cm; Wt 95.5 kg
[2022-12-14] MEDS ORDERED: PROC20004 SC (13:57)
[2022-12-14] MEDS ORDERED: GLIP5TAB8 PO (13:57)
[2022-12-14] MEDS ORDERED: FURO40TA2 PO (13:57)
[2022-12-14 14:35] LABS: BASO % 0.3 % (0.0-1.0); EOS # 0.1 10^3/uL (0.0-0.5); EOS % 1.8 % (0.0-3.0); LYMPH % 15.6 % (24.0-44.0); MEAN CORPUSCULAR HEMOGLOBIN 29.6 pg (27.0-33.0); MEAN CORPUSCULAR VOLUME 95.4 fl (80.0-96.0); MONO # 0.5 10^3/uL (0.0-0.8); MONO % 6.9 % (2.0-8.0); NEUTROPHILS % 75.1 % (36.0-66.0); PLATELET COUNT, AUTOMATED 231 10^3/uL (150-450); RED BLOOD COUNT 3.04 10^6/uL (4.00-5.40); WHITE BLOOD COUNT 6.7 10^3/uL (4.0-10.0)
[2022-12-14 15:03] LABS: ALBUMIN 3.4 G/DL (3.2-5.2); ALKALINE PHOSPHATASE 115 U/L (46-116); ALT/SGPT 12 U/L (7.0-40); AST/SGOT 17 U/L (<34); BILIRUBIN,DIRECT < 0.1 MG/DL (<0.4); BILIRUBIN,TOTAL 0.2 MG/DL (0.3-1.2); BLOOD UREA NITROGEN 47 MG/DL (9-23); CALCIUM LEVEL 8.4 MG/DL (8.3-10.6); CARBON DIOXIDE LEVEL 29 MMOL/L (20-31); CHLORIDE LEVEL 102 MMOL/L (98-107); CK-MB VALUE MASS 1.8 NG/ML (<3.6); CPK CREATINE PHOSPHOKINASE 91 U/L (34-145); CREATININE FOR GFR 1.64 MG/DL (0.55-1.30); GLOMERULAR FILTRATION RATE 32.3 (>39); GLUCOSE, FASTING 102 MG/DL (74-106); MB/CK RELATIVE INDEX 1.97 (< OR =4); POTASSIUM SERUM 4.3 MMOL/L (3.5-5.1); SODIUM LEVEL 138 MMOL/L (136-145); TOTAL PROTEIN 6.1 G/DL (5.7-8.2)
[2022-12-14] MEDS ORDERED: ISOVUE-370 76% 100ML VIAL As Ordered ONE (15:21)
[2022-12-14] MEDS ORDERED: IPRATROPIUM 0.5MG/ALBUTEROL 2.5MG INH SOL UD 3ML (DUONEB) NEB ONE (15:50)
[2022-12-14] MEDS ORDERED: methylPREDNISolone 125MG 2ML VIAL IV ONE (15:50)
[2022-12-14 17:11] VITALS: O2SAT 95
[2022-12-14] MEDS ORDERED: PRED20TA PO (17:18)
[2022-12-14] MEDS ORDERED: DOXY-443 PO (17:18)
[2022-12-14 17:28] VITALS: BP 153/72
== END 2022-12-14 17:30 | disposition home or self-care (01) ==
LOC: M ED 12:40
DX: J44.1 Chronic obstructive pulmonary disease with (acute) exacerbation (principal); I50.9 Heart failure, unspecified; E11.9 Type 2 diabetes mellitus without complications; E78.5 Hyperlipidemia, unspecified; I10 Essential (primary) hypertension; J45.909 Unspecified asthma, uncomplicated; Z87.01 Personal history of pneumonia (recurrent); N18.4 Chronic kidney disease, stage 4 (severe); K21.9 Gastro-esophageal reflux disease without esophagitis; G47.33 Obstructive sleep apnea (adult) (pediatric); Z79.4 Long term (current) use of insulin; Z79.899 Other long term (current) drug therapy; Z88.0 Allergy status to penicillin; Z88.2 Allergy status to sulfonamides; Z88.5 Allergy status to narcotic agent; Z88.8 Allergy status to other drugs, medicaments and biological substances; Z91.89 Other specified personal risk factors, not elsewhere classified
CPT/HCPCS: 71046; 71275; 80048; 80076; 82550; 82553; 84484; 85025; 87486; 87581; 87633; 87798; 93005; 94640; 96374; 99284; J2930; Q9967

== ENCOUNTER → 2022-12-24 | Outpatient (CLI) | payer MEDICARE, MEDICAID ==
[~2022-12-24] MED LIST changes: +DOXY-443 PO; +GLIP5TAB8 PO; +PROC20004 SC
== END ==
LOC: M RAD 10:02
PROVIDERS: ATTEND Surgery Vascular Surgery
DX: I87.2 Venous insufficiency (chronic) (peripheral) (principal)

== ENCOUNTER → 2022-12-31 | Outpatient (REF) | payer MEDICARE, MEDICAID ==
[2022-12-31 14:12] LABS: HEMATOCRIT 28.2 % (36.0-47.0); HEMOGLOBIN 8.8 g/dl (12.0-15.5); MEAN CORPUSCULAR HGB CONC 31.2 g/dl (32.0-36.5); MEAN CORPUSCULAR VOLUME 96.2 fl (80.0-96.0); PLATELET COUNT, AUTOMATED 181 10^3/uL (150-450); RED BLOOD COUNT 2.93 10^6/uL (4.00-5.40); WHITE BLOOD COUNT 9.3 10^3/uL (4.0-10.0)
== END ==
LOC: M LABDRWAD 13:12
PROVIDERS: ATTEND Internal Medicine Hematology
DX: E11.21 Type 2 diabetes mellitus with diabetic nephropathy (principal); D63.1 Anemia in chronic kidney disease

== ENCOUNTER → 2023-01-14 | Outpatient (CLI) | payer MEDICARE, MEDICAID ==
[2023-01-14 14:55] LABS: HEMATOCRIT 31.7 % (36.0-47.0); HEMOGLOBIN 9.9 g/dl (12.0-15.5); MEAN CORPUSCULAR HEMOGLOBIN 29.9 pg (27.0-33.0); MEAN CORPUSCULAR HGB CONC 31.2 g/dl (32.0-36.5); MEAN CORPUSCULAR VOLUME 95.8 fl (80.0-96.0); PLATELET COUNT, AUTOMATED 228 10^3/uL (150-450); RED BLOOD COUNT 3.31 10^6/uL (4.00-5.40); WHITE BLOOD COUNT 7.8 10^3/uL (4.0-10.0)
[2023-01-14 15:29] LABS: CREATININE, URINE 21.6 MG/DL; MAU/CREAT RATIO 23.1 MCG/MG (0.0-30.0)
[2023-01-14 15:30] LABS: C REACTIVE PROTEIN QUANTITATIV 5.1 MG/DL (<1.0)
[2023-01-14 15:31] LABS: BILIRUBIN,TOTAL 0.5 MG/DL (0.3-1.2); CALCIUM LEVEL 9.8 MG/DL (8.3-10.6); CHOLESTEROL RISK RATIO 3.17 (<5); CREATININE FOR GFR 1.93 MG/DL (0.55-1.30); GLOMERULAR FILTRATION RATE 26.7 (>39); HDL CHOLESTEROL 58.6 MG/DL (>40); LDL CHOLESTEROL 103.4 MG/DL (<100); NON-HDL-C 127.4 MG/DL; PERCENT SATURATION 14.1 % (13.2-45.0); POTASSIUM SERUM 5.1 MMOL/L (3.5-5.1); TOTAL PROTEIN 5.8 G/DL (5.7-8.2)
[2023-01-14 15:32] LABS: FREE T4 1.07 NG/DL (0.89-1.76); THYROID STIMULATING HORMONE 1.104 uIU/ML (0.55-4.78)
[2023-01-14 15:33] LABS: FERRITIN 180.2 NG/ML (7.3-270.7)
[2023-01-14 15:36] LABS: HEMOGLOBIN A1c 6.1 % (4.0-6.0)
[2023-01-14 15:51] LABS: TOTAL 25(OH) VITAMIN D 24.8 NG/ML (20.0-100.0)
[2023-01-16 07:08] LABS: INSULIN LEVEL 7.4 uIU/mL (2.6-24.9)
== END ==
LOC: M LABDRWAD 13:50
PROVIDERS: ATTEND Internal Medicine Hematology
DX: E03.9 Hypothyroidism, unspecified (principal); D63.8 Anemia in other chronic diseases classified elsewhere; E11.22 Type 2 diabetes mellitus with diabetic chronic kidney disease; N18.4 Chronic kidney disease, stage 4 (severe); E55.9 Vitamin D deficiency, unspecified; E78.00 Pure hypercholesterolemia, unspecified

== ENCOUNTER → 2023-01-14 | Outpatient (REF) | payer MEDICARE, MEDICAID | LOC: M SFHCPLAZ 13:39 | PROVIDERS: ATTEND Internal Medicine Hematology | DX: Z53.9 Procedure and treatment not carried out, unspecified reason (principal); E03.9 Hypothyroidism, unspecified ==

== ENCOUNTER 2023-01-27 10:48 | Outpatient (CLI) | payer MEDICARE, MEDICAID ==
[~2023-01-27 10:48] MED LIST changes: +ALBUTEROL SULFATE 2.5MG/0.5ML INH NEB SOLN INH PRN; +EPINEPHrine INJ 1 MG/ML 1ML AMP IM PRN; +diphenhydrAMINE 50MG/ML VIAL IV PRN; +methylPREDNISolone 125MG 2ML VIAL IV PRN
[2023-01-27 11:00] VITALS: BP 139/63; O2SAT 94
[2023-01-27] MEDS ORDERED: IRON SUCROSE 200 MG in NS 100 ML OVER 1 HR IV ONE (11:30)
[2023-01-27 12:16] VITALS: BP 142/63; O2SAT 96
== END 2023-01-27 12:20 ==
LOC: M INFU 10:48
PROVIDERS: ATTEND Internal Medicine Hematology
DX: D50.9 Iron deficiency anemia, unspecified (principal); Z88.0 Allergy status to penicillin; Z88.2 Allergy status to sulfonamides; Z88.5 Allergy status to narcotic agent; Z88.8 Allergy status to other drugs, medicaments and biological substances
CPT/HCPCS: 96365; J1756

== ENCOUNTER 2023-02-04 11:35 | Outpatient (CLI) | payer MEDICAID, MEDICARE, OTHER ==
[~2023-02-04] VITALS: Ht 157.5 cm; Wt 94.0 kg
[~2023-02-04 11:35] MED LIST changes: +IRON SUCROSE 200 MG in NS 100 ML OVER 1 HR IV ONE
[2023-02-04 12:02] VITALS: BP 186/83; O2SAT 94
[2023-02-04 13:00] VITALS: BP 156/74; O2SAT 95
== END 2023-02-04 13:05 ==
LOC: M INFU 11:35
PROVIDERS: ATTEND Internal Medicine Hematology
DX: D50.9 Iron deficiency anemia, unspecified (principal); Z88.0 Allergy status to penicillin; Z88.2 Allergy status to sulfonamides; Z88.5 Allergy status to narcotic agent; Z88.8 Allergy status to other drugs, medicaments and biological substances
CPT/HCPCS: 96365; J1756

== ENCOUNTER 2023-02-11 11:30 | Outpatient (CLI) | payer MEDICAID, MEDICARE, OTHER ==
[~2023-02-11] VITALS: Ht 157.5 cm; Wt 94.3 kg
[2023-02-11 11:26] VITALS: BP 147/70; O2SAT 96
[~2023-02-11 11:30] MED LIST changes: +NS 1,000 ML IV SCH
[2023-02-11 12:52] VITALS: BP 136/77; O2SAT 98
== END 2023-02-11 12:50 | disposition home or self-care (01) ==
LOC: M INFU 11:30
PROVIDERS: ATTEND Internal Medicine Hematology
DX: D50.9 Iron deficiency anemia, unspecified (principal); Z88.0 Allergy status to penicillin; Z88.2 Allergy status to sulfonamides; Z88.5 Allergy status to narcotic agent; Z88.8 Allergy status to other drugs, medicaments and biological substances
CPT/HCPCS: 96365; J1756

== ENCOUNTER 2023-02-18 11:20 | Outpatient (CLI) | payer MEDICARE, MEDICAID ==
[~2023-02-18] VITALS: Ht 157.5 cm; Wt 94.3 kg
[~2023-02-18 11:20] MED LIST changes: -IRON SUCROSE 200 MG in NS 100 ML OVER 1 HR IV ONE; -NS 1,000 ML IV SCH
[2023-02-18] MEDS ORDERED: IRON SUCROSE 200 MG in NS 100 ML OVER 1 HR IV ONE (11:30)
[2023-02-18] MEDS ORDERED: NS 1,000 ML IV SCH (11:30)
[2023-02-18 13:00] VITALS: BP 116/56; O2SAT 96
== END 2023-02-18 13:00 | disposition home or self-care (01) ==
LOC: M INFU 11:20
PROVIDERS: ATTEND Internal Medicine Hematology
DX: D50.9 Iron deficiency anemia, unspecified (principal); Z88.0 Allergy status to penicillin; Z88.2 Allergy status to sulfonamides; Z88.5 Allergy status to narcotic agent; Z88.8 Allergy status to other drugs, medicaments and biological substances
CPT/HCPCS: 96365; J1756

== ENCOUNTER 2023-02-25 11:30 | Outpatient (CLI) | payer MEDICARE, MEDICAID ==
[~2023-02-25] VITALS: Ht 157.5 cm; Wt 94.3 kg
[~2023-02-25 11:30] MED LIST changes: +IRON SUCROSE 200 MG in NS 100 ML OVER 1 HR IV ONE; +NS 1,000 ML IV SCH
[2023-02-25 11:36] VITALS: BP 158/71; O2SAT 96
[2023-02-25 13:15] VITALS: BP 155/66; O2SAT 96
== END 2023-02-25 13:15 | disposition home or self-care (01) ==
LOC: M INFU 11:30
PROVIDERS: ATTEND Internal Medicine Hematology
DX: D50.9 Iron deficiency anemia, unspecified (principal); Z88.0 Allergy status to penicillin; Z88.2 Allergy status to sulfonamides; Z88.5 Allergy status to narcotic agent; Z88.8 Allergy status to other drugs, medicaments and biological substances
CPT/HCPCS: 96365; J1756

== ENCOUNTER 2023-03-15 14:12 | Emergency (ER) | payer MEDICAID, MEDICARE ==
[~2023-03-15] VITALS: Ht 152.4 cm; Wt 95.0 kg
[~2023-03-15 14:12] MED LIST changes: -ALBUTEROL SULFATE 2.5MG/0.5ML INH NEB SOLN INH PRN; -EPINEPHrine INJ 1 MG/ML 1ML AMP IM PRN; -IRON SUCROSE 200 MG in NS 100 ML OVER 1 HR IV ONE; -NS 1,000 ML IV SCH; -diphenhydrAMINE 50MG/ML VIAL IV PRN; -methylPREDNISolone 125MG 2ML VIAL IV PRN
[2023-03-15 14:13] VITALS: BP 174/76; TEMP 97.1; O2SAT 95
[2023-03-15 17:20] LABS: BASO % 0.4 % (0.0-1.0); EOS # 0.2 10^3/uL (0.0-0.5); EOS % 3.1 % (0.0-3.0); HEMATOCRIT 37.9 % (36.0-47.0); HEMOGLOBIN 11.6 g/dl (12.0-15.5); LYMPH # 1.1 10^3/uL (1.5-5.0); LYMPH % 16.7 % (24.0-44.0); MEAN CORPUSCULAR HEMOGLOBIN 29.2 pg (27.0-33.0); MEAN CORPUSCULAR HGB CONC 30.6 g/dl (32.0-36.5); MEAN CORPUSCULAR VOLUME 95.5 fl (80.0-96.0); MONO # 0.4 10^3/uL (0.0-0.8); MONO % 6.3 % (2.0-8.0); NEUTROPHILS % 73.2 % (36.0-66.0); PLATELET COUNT, AUTOMATED 245 10^3/uL (150-450); RED BLOOD COUNT 3.97 10^6/uL (4.00-5.40); WHITE BLOOD COUNT 6.8 10^3/uL (4.0-10.0)
[2023-03-15 17:36] LABS: C REACTIVE PROTEIN QUANTITATIV 0.6 MG/DL (<1.0)
[2023-03-15 17:38] LABS: CALCIUM LEVEL 9.2 MG/DL (8.3-10.6); CREATININE FOR GFR 1.27 MG/DL (0.55-1.30); GLOMERULAR FILTRATION RATE 43.3 (>39); POTASSIUM SERUM 4.4 MMOL/L (3.5-5.1)
[2023-03-15 17:51] LABS: ERYTHROCYTE SEDIMENTATION RATE 112 mm/hr (0-30)
[2023-03-15] MEDS ORDERED: DOXY-443 PO (20:44)
[2023-03-15] MEDS ORDERED: DOXYCYCLINE HYCLATE 100MG TABLET PO ONE (20:45)
== END 2023-03-15 21:09 | disposition home or self-care (01) ==
LOC: M ED 14:12
DX: L03.115 Cellulitis of right lower limb (principal); L03.116 Cellulitis of left lower limb; I10 Essential (primary) hypertension; E78.5 Hyperlipidemia, unspecified; J45.909 Unspecified asthma, uncomplicated; K21.9 Gastro-esophageal reflux disease without esophagitis; H35.00 Unspecified background retinopathy; Z88.0 Allergy status to penicillin; Z88.2 Allergy status to sulfonamides; Z88.8 Allergy status to other drugs, medicaments and biological substances; Z79.899 Other long term (current) drug therapy; Z79.4 Long term (current) use of insulin; Z79.52 Long term (current) use of systemic steroids; Z79.51 Long term (current) use of inhaled steroids

== ENCOUNTER → 2023-04-15 | Outpatient (REF) | payer MEDICARE, MEDICAID ==
[2023-04-15 18:39] LABS: BASO # 0.1 10^3/uL (0.0-0.2); BASO % 0.7 % (0.0-1.0); EOS # 0.3 10^3/uL (0.0-0.5); EOS % 4.3 % (0.0-3.0); HEMATOCRIT 36.4 % (36.0-47.0); HEMOGLOBIN 11.1 g/dl (12.0-15.5); LYMPH # 1.4 10^3/uL (1.5-5.0); LYMPH % 19.2 % (24.0-44.0); MEAN CORPUSCULAR HEMOGLOBIN 29.4 pg (27.0-33.0); MEAN CORPUSCULAR HGB CONC 30.5 g/dl (32.0-36.5); MEAN CORPUSCULAR VOLUME 96.6 fl (80.0-96.0); MONO # 0.6 10^3/uL (0.0-0.8); MONO % 7.6 % (2.0-8.0); NEUTROPHILS # 4.9 10^3/uL (1.5-8.5); NEUTROPHILS % 67.6 % (36.0-66.0); PLATELET COUNT, AUTOMATED 218 10^3/uL (150-450); RED BLOOD COUNT 3.77 10^6/uL (4.00-5.40); WHITE BLOOD COUNT 7.2 10^3/uL (4.0-10.0)
[2023-04-15 19:02] LABS: CALCIUM LEVEL 9.4 MG/DL (8.3-10.6); CREATININE FOR GFR 1.54 MG/DL (0.55-1.30); GLOMERULAR FILTRATION RATE 34.7 (>39); POTASSIUM SERUM 4.6 MMOL/L (3.5-5.1)
[2023-04-15 19:03] LABS: PERCENT SATURATION 28.1 % (13.2-45.0)
== END ==
LOC: M SFHCADAM 13:38
PROVIDERS: ATTEND Internal Medicine Hematology
DX: E03.9 Hypothyroidism, unspecified (principal); I50.42 Chronic combined systolic (congestive) and diastolic (congestive) heart failure

== ENCOUNTER 2023-05-03 11:32 | Emergency (ER) | payer MEDICARE, MEDICAID ==
[~2023-05-03] VITALS: Ht 152.4 cm; Wt 93.2 kg
[2023-05-03] MEDS ORDERED: ONDANSETRON 4MG 2ML VIAL IV ONE (14:20)
[2023-05-03] MEDS ORDERED: PANTOPRAZOLE 40MG VIAL IV ONE (14:20)
[2023-05-03] MEDS ORDERED: NS 1,000 ML IV ONE (14:20)
[2023-05-03 14:22] LABS: BASO % 0.4 % (0.0-1.0); EOS # 0.3 10^3/uL (0.0-0.5); EOS % 3.3 % (0.0-3.0); HEMATOCRIT 35.9 % (36.0-47.0); HEMOGLOBIN 11.2 g/dl (12.0-15.5); LYMPH # 1.3 10^3/uL (1.5-5.0); MEAN CORPUSCULAR HEMOGLOBIN 29.5 pg (27.0-33.0); MEAN CORPUSCULAR HGB CONC 31.2 g/dl (32.0-36.5); MEAN CORPUSCULAR VOLUME 94.5 fl (80.0-96.0); MONO # 0.5 10^3/uL (0.0-0.8); MONO % 6.7 % (2.0-8.0); NEUTROPHILS # 5.5 10^3/uL (1.5-8.5); NEUTROPHILS % 72.3 % (36.0-66.0); PLATELET COUNT, AUTOMATED 199 10^3/uL (150-450); WHITE BLOOD COUNT 7.6 10^3/uL (4.0-10.0)
[2023-05-03 14:46] LABS: CK-MB VALUE MASS 1.2 NG/ML (<3.6)
[2023-05-03 14:48] LABS: BLOOD UREA NITROGEN 51 MG/DL (9-23); CALCIUM LEVEL 8.9 MG/DL (8.3-10.6); CARBON DIOXIDE LEVEL 34 MMOL/L (20-31); CHLORIDE LEVEL 101 MMOL/L (98-107); CREATININE FOR GFR 1.91 MG/DL (0.55-1.30); GLOMERULAR FILTRATION RATE 27.1 (>39); GLUCOSE, FASTING 102 MG/DL (74-106); POTASSIUM SERUM 4.2 MMOL/L (3.5-5.1); SODIUM LEVEL 140 MMOL/L (136-145)
[2023-05-03 15:02] LABS: LIPASE 112 U/L (12-53)
[2023-05-03 15:03] LABS: ALBUMIN 3.5 G/DL (3.2-5.2); ALKALINE PHOSPHATASE 117 U/L (46-116); ALT/SGPT 13 U/L (7.0-40); AST/SGOT 20 U/L (<34); BILIRUBIN,DIRECT < 0.1 MG/DL (<0.4); BILIRUBIN,TOTAL 0.4 MG/DL (0.3-1.2); TOTAL PROTEIN 6.3 G/DL (5.7-8.2)
[2023-05-03 15:16] LABS: CPK CREATINE PHOSPHOKINASE 99 U/L (34-145); MB/CK RELATIVE INDEX 1.21 (< OR =4)
[2023-05-03 15:23] LABS: INR 0.94; PROTHROMBIN TIME 12.3 SECONDS (12.5-14.5)
[2023-05-03 15:24] LABS: PARTIAL THROMBOPLASTIN TIME 26.6 SECONDS (24.8-34.2)
[2023-05-03 15:43] LABS: RSV AMPLIFICATION NEGATIVE (NEGATIVE)
[2023-05-03 16:02] LABS: CK-MB VALUE MASS 1.1 NG/ML (<3.6)
[2023-05-03 16:12] LABS: MB/CK RELATIVE INDEX 1.15 (< OR =4)
[2023-05-03 18:33] VITALS: BP 159/70; TEMP 96.3; O2SAT 94
== END 2023-05-03 18:46 | disposition home or self-care (01) ==
LOC: M ED 11:32
DX: R07.9 Chest pain, unspecified (principal); J91.8 Pleural effusion in other conditions classified elsewhere; I44.0 Atrioventricular block, first degree; I45.10 Unspecified right bundle-branch block; I44.4 Left anterior fascicular block; E11.9 Type 2 diabetes mellitus without complications; I10 Essential (primary) hypertension; E78.5 Hyperlipidemia, unspecified; J44.9 Chronic obstructive pulmonary disease, unspecified; G47.33 Obstructive sleep apnea (adult) (pediatric); K21.9 Gastro-esophageal reflux disease without esophagitis; Z88.0 Allergy status to penicillin; Z88.1 Allergy status to other antibiotic agents; Z88.2 Allergy status to sulfonamides; Z88.5 Allergy status to narcotic agent; Z91.048 Other nonmedicinal substance allergy status; Z79.52 Long term (current) use of systemic steroids; Z79.4 Long term (current) use of insulin; Z79.83 Long term (current) use of bisphosphonates; Z79.811 Long term (current) use of aromatase inhibitors; Z79.899 Other long term (current) drug therapy
CPT/HCPCS: 71046; 74176; 80048; 80076; 81001; 82550; 82553; 83605; 83690; 84484; 85025; 85610; 85730; 87040; 87631; 93005; 96361; 96374; 96375; 99285; C9113; J2405

== ENCOUNTER → 2023-05-10 | Outpatient (CLI) | payer MEDICARE, MEDICAID ==
[~2023-05-10] MED LIST changes: +GLIP5TAB17 PO; -GLIP5TAB8 PO
[2023-05-10 17:30] LABS: BASO % 0.4 % (0.0-1.0); EOS # 0.3 10^3/uL (0.0-0.5); EOS % 3.2 % (0.0-3.0); HEMATOCRIT 33.5 % (36.0-47.0); HEMOGLOBIN 10.6 g/dl (12.0-15.5); LYMPH # 1.6 10^3/uL (1.5-5.0); LYMPH % 20.4 % (24.0-44.0); MEAN CORPUSCULAR HGB CONC 31.6 g/dl (32.0-36.5); MEAN CORPUSCULAR VOLUME 94.9 fl (80.0-96.0); MONO # 0.6 10^3/uL (0.0-0.8); MONO % 7.9 % (2.0-8.0); NEUTROPHILS # 5.3 10^3/uL (1.5-8.5); NEUTROPHILS % 67.8 % (36.0-66.0); PLATELET COUNT, AUTOMATED 203 10^3/uL (150-450); RED BLOOD COUNT 3.53 10^6/uL (4.00-5.40); WHITE BLOOD COUNT 7.9 10^3/uL (4.0-10.0)
[2023-05-10 17:57] LABS: ALBUMIN 3.4 G/DL (3.2-5.2); BILIRUBIN,TOTAL 0.3 MG/DL (0.3-1.2); CALCIUM LEVEL 9.1 MG/DL (8.3-10.6); CREATININE FOR GFR 1.52 MG/DL (0.55-1.30); GLOMERULAR FILTRATION RATE 35.2 (>39); TOTAL PROTEIN 5.9 G/DL (5.7-8.2)
[2023-05-10 17:59] LABS: FERRITIN 356.8 NG/ML (7.3-270.7)
== END ==
LOC: M PLAIMG 15:32
PROVIDERS: ATTEND Physician Assistant Medical
DX: J90 Pleural effusion, not elsewhere classified (principal); K64.4 Residual hemorrhoidal skin tags; K92.1 Melena; I50.32 Chronic diastolic (congestive) heart failure

== ENCOUNTER 2023-05-30 03:02 | Inpatient (IN) | payer MEDICARE, MEDICAID ==
[~2023-05-30] VITALS: Ht 152.4 cm; Wt 94.7 kg
[2023-05-30 04:03] LABS: BASO % 0.3 % (0.0-1.0); EOS # 0.3 10^3/uL (0.0-0.5); EOS % 3.2 % (0.0-3.0); HEMATOCRIT 36.9 % (36.0-47.0); HEMOGLOBIN 11.8 g/dl (12.0-15.5); LYMPH # 1.1 10^3/uL (1.5-5.0); LYMPH % 10.6 % (24.0-44.0); MEAN CORPUSCULAR HEMOGLOBIN 30.2 pg (27.0-33.0); MEAN CORPUSCULAR VOLUME 94.4 fl (80.0-96.0); MONO # 0.8 10^3/uL (0.0-0.8); MONO % 7.8 % (2.0-8.0); NEUTROPHILS # 7.7 10^3/uL (1.5-8.5); NEUTROPHILS % 77.8 % (36.0-66.0); PLATELET COUNT, AUTOMATED 229 10^3/uL (150-450); RED BLOOD COUNT 3.91 10^6/uL (4.00-5.40); WHITE BLOOD COUNT 9.9 10^3/uL (4.0-10.0)
[2023-05-30 04:18] LABS: LIPASE 77 U/L (12-53)
[2023-05-30 04:21] LABS: ALBUMIN 3.6 G/DL (3.2-5.2); ALKALINE PHOSPHATASE 121 U/L (46-116); ALT/SGPT < 9 U/L (7.0-40); AST/SGOT 20 U/L (<34); BILIRUBIN,TOTAL 0.4 MG/DL (0.3-1.2); BLOOD UREA NITROGEN 38 MG/DL (9-23); CALCIUM LEVEL 9.6 MG/DL (8.3-10.6); CARBON DIOXIDE LEVEL 31 MMOL/L (20-31); CHLORIDE LEVEL 99 MMOL/L (98-107); CREATININE FOR GFR 1.65 MG/DL (0.55-1.30); GLUCOSE, FASTING 140 MG/DL (74-106); POTASSIUM SERUM 4.3 MMOL/L (3.5-5.1); SODIUM LEVEL 141 MMOL/L (136-145); TOTAL PROTEIN 6.6 G/DL (5.7-8.2)
[2023-05-30] MEDS: GASTROGRAFIN SOLUTION 30ML PO SCH ×3 (06:26→07:56)
[2023-05-30] MEDS ORDERED: ONDANSETRON 4MG 2ML VIAL IV ONE (07:15)
[2023-05-30] MEDS ORDERED: METOCLOPRAMIDE INJ 10MG/2ML VIAL IV ONE (07:45)
[2023-05-30] MEDS ORDERED: MED REC IN PROGRESS XX SCH (09:05)
[2023-05-30] MEDS ORDERED: MED REC CURRENTLY UNOBTAINABLE XX SCH (10:20)
[2023-05-30] MEDS ORDERED: ATOR40TA75 PO (11:00)
[2023-05-30] MEDS ORDERED: ZOLO100T PO (11:00)
[2023-05-30] MEDS ORDERED: LEVO150T7 PO (11:00)
[2023-05-30] MEDS ORDERED: GABA600T4 PO (11:00)
[2023-05-30] MEDS ORDERED: [UNRECOGNIZED DRUG - CODE] SC (11:00)
[2023-05-30] MEDS ORDERED: ALLO300T2 PO (11:00)
[2023-05-30] MEDS ORDERED: SENN-186 PO (11:00)
[2023-05-30] MEDS ORDERED: HOME MED LIST COMPLETE! XX SCH (11:10)
[2023-05-30 12:40] VITALS: TEMP 98.1; O2SAT 95
[2023-05-30 12:58] VITALS: BP 150/60
[2023-05-30] MEDS ORDERED: ALBUTEROL SULFATE 2.5MG/0.5ML INH NEB SOLN INH PRN (13:35)
[2023-05-30] MEDS ORDERED: GLUCOSE 4GM CHEW TABLET PO PRN (13:35)
[2023-05-30] MEDS ORDERED: DEXTROSE 50% 50ML SYRINGE IV PRN (13:35)
[2023-05-30] MEDS ORDERED: GLUCAGON INJ 1MG VIAL SC PRN (13:35)
[2023-05-30] MEDS ORDERED: ONDANSETRON 4MG 2ML VIAL IV PRN (13:40)
[2023-05-30] MEDS: NS 1,000 ML IV SCH (13:52)
[2023-05-30] MEDS: INSULIN LISPRO (NovoLOG) PER UNIT SC SCH ×2 (13:52→18:00)
[2023-05-30] MEDS: busPIRone 5 MG TAB PO SCH ×2 (14:06→21:28)
[2023-05-30] MEDS ORDERED: B-121CAP PO (15:04)
[2023-05-30] MEDS ORDERED: MAGN400T2 PO (15:04)
[2023-05-30] MEDS ORDERED: INSU100I48 SC (15:04)
[2023-05-30] MEDS: GABAPENTIN 300 MG CAP PO SCH ×2 (16:19→21:27)
[2023-05-30 16:20] VITALS: BP 130/50
[2023-05-30] MEDS: FUROSEMIDE 40 MG TAB PO SCH (16:20)
[2023-05-30 19:50] VITALS: BP 127/58; TEMP 97.7; O2SAT 97
[2023-05-30] MEDS: ADVAIR HFA 230/21MCG INHALER INH SCH (20:22)
[2023-05-30] MEDS: OMEPRAZOLE 20MG CAP PO SCH (21:28)
[2023-05-30] MEDS: HEPARIN SOD (PORCINE) 5000UNITS/ML 1ML VIAL/SYRINGE SC SCH (21:28)
[2023-05-31] VITALS (9 sets, daily range): BP systolic 107–128; BP diastolic 41–52; TEMP 97.7–98.1; O2SAT 83–98
[2023-05-31] MEDS: NS 1,000 ML IV SCH ×2 (03:10→17:13)
[2023-05-31] MEDS ORDERED: LEVOTHYROXINE 150MCG TABLET (0.15MG) PO SCH (06:00)
[2023-05-31] MEDS: HEPARIN SOD (PORCINE) 5000UNITS/ML 1ML VIAL/SYRINGE SC SCH ×3 (06:16→20:58)
[2023-05-31] MEDS: LEVOTHYROXINE 150MCG TABLET (0.15MG) PO SCH (06:16)
[2023-05-31] MEDS: INSULIN LISPRO (NovoLOG) PER UNIT SC SCH ×5 (06:17→23:38)
[2023-05-31 06:23] LABS: BASO % 0.3 % (0.0-1.0); EOS # 0.2 10^3/uL (0.0-0.5); EOS % 2.4 % (0.0-3.0); HEMATOCRIT 31.9 % (36.0-47.0); HEMOGLOBIN 9.9 g/dl (12.0-15.5); LYMPH # 1.2 10^3/uL (1.5-5.0); MEAN CORPUSCULAR HEMOGLOBIN 30.3 pg (27.0-33.0); MEAN CORPUSCULAR VOLUME 97.6 fl (80.0-96.0); MONO # 0.8 10^3/uL (0.0-0.8); MONO % 9.4 % (2.0-8.0); NEUTROPHILS # 5.8 10^3/uL (1.5-8.5); NEUTROPHILS % 72.6 % (36.0-66.0); PLATELET COUNT, AUTOMATED 167 10^3/uL (150-450); RED BLOOD COUNT 3.27 10^6/uL (4.00-5.40)
[2023-05-31 06:54] LABS: CALCIUM LEVEL 8.3 MG/DL (8.3-10.6); CREATININE FOR GFR 2.05 MG/DL (0.55-1.30); GLOMERULAR FILTRATION RATE 24.9 (>39); MAGNESIUM LEVEL 1.6 MG/DL (1.8-2.4); POTASSIUM SERUM 4.3 MMOL/L (3.5-5.1)
[2023-05-31] MEDS: ADVAIR HFA 230/21MCG INHALER INH SCH ×2 (07:50→20:17)
[2023-05-31] MEDS: FUROSEMIDE 40 MG TAB PO SCH ×2 (09:00→17:16)
[2023-05-31] MEDS: LOSARTAN 50MG TABLET PO SCH (09:00)
[2023-05-31] MEDS: ATORVASTATIN 20 MG TAB PO SCH (09:59)
[2023-05-31] MEDS: OMEPRAZOLE 20MG CAP PO SCH ×2 (09:59→19:45)
[2023-05-31] MEDS: allopurinoL 300 MG TAB PO SCH (09:59)
[2023-05-31] MEDS: GABAPENTIN 300 MG CAP PO SCH ×3 (09:59→19:45)
[2023-05-31] MEDS: SERTRALINE HCL 50 MG TAB PO SCH (09:59)
[2023-05-31] MEDS ORDERED: MAG SULF 1GM/100ML (MAG RUN) 1 GM in IV 1 EA IV ONE (12:00)
[2023-05-31] MEDS: busPIRone 5 MG TAB PO SCH ×2 (12:00→19:45)
[2023-06-01] VITALS (7 sets, daily range): BP systolic 125–142; BP diastolic 53–90; TEMP 97.9–98.2; O2SAT 89–96
[2023-06-01] MEDS: HEPARIN SOD (PORCINE) 5000UNITS/ML 1ML VIAL/SYRINGE SC SCH ×3 (05:07→21:00)
[2023-06-01] MEDS: INSULIN LISPRO (NovoLOG) PER UNIT SC SCH ×4 (05:07→23:54)
[2023-06-01] MEDS: LEVOTHYROXINE 150MCG TABLET (0.15MG) PO SCH (05:07)
[2023-06-01] MEDS: NS 1,000 ML IV SCH ×2 (05:10→18:27)
[2023-06-01 06:11] LABS: BASO % 0.3 % (0.0-1.0); EOS # 0.2 10^3/uL (0.0-0.5); EOS % 2.5 % (0.0-3.0); HEMATOCRIT 31.6 % (36.0-47.0); HEMOGLOBIN 9.7 g/dl (12.0-15.5); LYMPH % 15.9 % (24.0-44.0); MEAN CORPUSCULAR HEMOGLOBIN 29.9 pg (27.0-33.0); MEAN CORPUSCULAR HGB CONC 30.7 g/dl (32.0-36.5); MEAN CORPUSCULAR VOLUME 97.5 fl (80.0-96.0); MONO # 0.5 10^3/uL (0.0-0.8); MONO % 7.7 % (2.0-8.0); NEUTROPHILS # 4.6 10^3/uL (1.5-8.5); NEUTROPHILS % 73.3 % (36.0-66.0); PLATELET COUNT, AUTOMATED 165 10^3/uL (150-450); RED BLOOD COUNT 3.24 10^6/uL (4.00-5.40); WHITE BLOOD COUNT 6.3 10^3/uL (4.0-10.0)
[2023-06-01 06:35] LABS: CALCIUM LEVEL 8.2 MG/DL (8.3-10.6); CREATININE FOR GFR 1.85 MG/DL (0.55-1.30); GLOMERULAR FILTRATION RATE 28.1 (>39); MAGNESIUM LEVEL 1.8 MG/DL (1.8-2.4); POTASSIUM SERUM 3.7 MMOL/L (3.5-5.1)
[2023-06-01] MEDS: ADVAIR HFA 230/21MCG INHALER INH SCH ×2 (07:18→20:11)
[2023-06-01] MEDS: LOSARTAN 50MG TABLET PO SCH (10:00)
[2023-06-01] MEDS: FUROSEMIDE 40 MG TAB PO SCH ×2 (10:01→16:21)
[2023-06-01] MEDS: ATORVASTATIN 20 MG TAB PO SCH (10:02)
[2023-06-01] MEDS: GABAPENTIN 300 MG CAP PO SCH ×3 (10:02→19:58)
[2023-06-01] MEDS: OMEPRAZOLE 20MG CAP PO SCH ×2 (10:02→19:58)
[2023-06-01] MEDS: allopurinoL 300 MG TAB PO SCH (10:03)
[2023-06-01] MEDS: SERTRALINE HCL 50 MG TAB PO SCH (10:11)
[2023-06-01] MEDS: busPIRone 5 MG TAB PO SCH ×2 (12:28→19:58)
[2023-06-01] MEDS: TIOTROPIUM INHALER/CAPSULE (SPIRIVA) INH SCH (16:21)
[2023-06-02] MEDS: HEPARIN SOD (PORCINE) 5000UNITS/ML 1ML VIAL/SYRINGE SC SCH ×3 (04:59→20:54)
[2023-06-02] MEDS: LEVOTHYROXINE 150MCG TABLET (0.15MG) PO SCH (04:59)
[2023-06-02] MEDS: INSULIN LISPRO (NovoLOG) PER UNIT SC SCH ×4 (05:02→23:38)
[2023-06-02 06:39] LABS: BASO % 0.3 % (0.0-1.0); EOS # 0.1 10^3/uL (0.0-0.5); EOS % 1.6 % (0.0-3.0); HEMOGLOBIN 8.7 g/dl (12.0-15.5); LYMPH % 14.7 % (24.0-44.0); MEAN CORPUSCULAR HGB CONC 31.1 g/dl (32.0-36.5); MEAN CORPUSCULAR VOLUME 96.6 fl (80.0-96.0); MONO # 0.6 10^3/uL (0.0-0.8); MONO % 8.6 % (2.0-8.0); NEUTROPHILS % 74.5 % (36.0-66.0); PLATELET COUNT, AUTOMATED 165 10^3/uL (150-450); WHITE BLOOD COUNT 6.8 10^3/uL (4.0-10.0)
[2023-06-02 06:48] VITALS: BP 163/68; TEMP 98.9; O2SAT 91
[2023-06-02 06:49] VITALS: BP 163/68; TEMP 98.1; O2SAT 91
[2023-06-02 06:51] LABS: CALCIUM LEVEL 8.3 MG/DL (8.3-10.6); CREATININE FOR GFR 1.58 MG/DL (0.55-1.30); GLOMERULAR FILTRATION RATE 33.7 (>39); MAGNESIUM LEVEL 1.6 MG/DL (1.8-2.4); POTASSIUM SERUM 3.7 MMOL/L (3.5-5.1)
[2023-06-02] MEDS: TIOTROPIUM INHALER/CAPSULE (SPIRIVA) INH SCH (07:30)
[2023-06-02] MEDS: ADVAIR HFA 230/21MCG INHALER INH SCH ×2 (07:31→19:14)
[2023-06-02] MEDS: FUROSEMIDE 40 MG TAB PO SCH ×2 (08:26→16:44)
[2023-06-02] MEDS: allopurinoL 300 MG TAB PO SCH (08:26)
[2023-06-02] MEDS: ATORVASTATIN 20 MG TAB PO SCH (08:27)
[2023-06-02] MEDS: OMEPRAZOLE 20MG CAP PO SCH ×2 (08:27→19:47)
[2023-06-02] MEDS: NS 1,000 ML IV SCH ×2 (08:27→19:48)
[2023-06-02] MEDS: LOSARTAN 50MG TABLET PO SCH (08:27)
[2023-06-02] MEDS: GABAPENTIN 300 MG CAP PO SCH ×3 (08:27→19:47)
[2023-06-02] MEDS: SERTRALINE HCL 50 MG TAB PO SCH (08:29)
[2023-06-02] MEDS: BISACODYL 10MG SUPP PR SCH ×2 (10:02→19:48)
[2023-06-02] MEDS: busPIRone 5 MG TAB PO SCH ×2 (12:29→19:48)
[2023-06-02 14:00] VITALS: BP 127/52; TEMP 98.1; O2SAT 94
[2023-06-02 16:45] VITALS: BP 140/50
[2023-06-02 22:00] VITALS: BP 141/60; TEMP 97.5; O2SAT 93
[2023-06-03] MEDS: INSULIN LISPRO (NovoLOG) PER UNIT SC SCH ×4 (05:20→23:53)
[2023-06-03] MEDS: HEPARIN SOD (PORCINE) 5000UNITS/ML 1ML VIAL/SYRINGE SC SCH ×3 (05:24→21:07)
[2023-06-03 06:11] VITALS: BP 151/68; TEMP 98.1; O2SAT 93
[2023-06-03 06:11] LABS: BASO % 0.1 % (0.0-1.0); EOS # 0.1 10^3/uL (0.0-0.5); EOS % 1.4 % (0.0-3.0); HEMATOCRIT 29.4 % (36.0-47.0); HEMOGLOBIN 9.2 g/dl (12.0-15.5); LYMPH % 13.3 % (24.0-44.0); MEAN CORPUSCULAR HEMOGLOBIN 29.8 pg (27.0-33.0); MEAN CORPUSCULAR HGB CONC 31.3 g/dl (32.0-36.5); MEAN CORPUSCULAR VOLUME 95.1 fl (80.0-96.0); MONO # 0.5 10^3/uL (0.0-0.8); MONO % 6.4 % (2.0-8.0); NEUTROPHILS % 78.5 % (36.0-66.0); PLATELET COUNT, AUTOMATED 173 10^3/uL (150-450); RED BLOOD COUNT 3.09 10^6/uL (4.00-5.40); WHITE BLOOD COUNT 7.7 10^3/uL (4.0-10.0)
[2023-06-03 06:42] LABS: CALCIUM LEVEL 8.8 MG/DL (8.3-10.6); CREATININE FOR GFR 1.34 MG/DL (0.55-1.30); GLOMERULAR FILTRATION RATE 40.7 (>39); MAGNESIUM LEVEL 1.5 MG/DL (1.8-2.4); POTASSIUM SERUM 3.6 MMOL/L (3.5-5.1)
[2023-06-03] MEDS: ADVAIR HFA 230/21MCG INHALER INH SCH ×2 (07:37→19:29)
[2023-06-03] MEDS: TIOTROPIUM INHALER/CAPSULE (SPIRIVA) INH SCH (07:37)
[2023-06-03] MEDS: LOSARTAN 50MG TABLET PO SCH (09:26)
[2023-06-03] MEDS: BISACODYL 10MG SUPP PR SCH ×2 (09:26→21:07)
[2023-06-03] MEDS: SERTRALINE HCL 50 MG TAB PO SCH (09:26)
[2023-06-03] MEDS: GABAPENTIN 300 MG CAP PO SCH ×3 (09:26→21:07)
[2023-06-03] MEDS: allopurinoL 300 MG TAB PO SCH (09:26)
[2023-06-03] MEDS: OMEPRAZOLE 20MG CAP PO SCH ×2 (09:27→21:07)
[2023-06-03] MEDS: ATORVASTATIN 20 MG TAB PO SCH (09:27)
[2023-06-03] MEDS: MAG SULF 1GM/100ML (MAG RUN) 1 GM in IV 1 EA IV SCH ×2 (10:30→11:56)
[2023-06-03] MEDS: busPIRone 5 MG TAB PO SCH ×2 (12:00→21:06)
[2023-06-03 14:00] VITALS: BP 135/61; TEMP 97.9; O2SAT 96
[2023-06-03 19:31] VITALS: O2SAT 95
[2023-06-03] MEDS: MICONAZOLE 2 % POWDER (DESENEX) TOP SCH (21:07)
[2023-06-03 22:00] VITALS: BP 157/78; TEMP 97.5; O2SAT 95
[2023-06-04] MEDS ORDERED: amLODIPine 5 MG TAB PO ONE (05:00)
[2023-06-04 05:30] VITALS: BP 170/80; TEMP 97.6; O2SAT 91
[2023-06-04] MEDS: HEPARIN SOD (PORCINE) 5000UNITS/ML 1ML VIAL/SYRINGE SC SCH ×3 (05:38→21:17)
[2023-06-04] MEDS: LEVOTHYROXINE 150MCG TABLET (0.15MG) PO SCH (05:38)
[2023-06-04] MEDS: INSULIN LISPRO (NovoLOG) PER UNIT SC SCH ×4 (05:42→23:31)
[2023-06-04 06:29] LABS: BASO % 0.3 % (0.0-1.0); EOS # 0.2 10^3/uL (0.0-0.5); EOS % 2.6 % (0.0-3.0); HEMATOCRIT 27.1 % (36.0-47.0); HEMOGLOBIN 8.8 g/dl (12.0-15.5); LYMPH # 1.1 10^3/uL (1.5-5.0); LYMPH % 13.9 % (24.0-44.0); MEAN CORPUSCULAR HEMOGLOBIN 30.8 pg (27.0-33.0); MEAN CORPUSCULAR HGB CONC 32.5 g/dl (32.0-36.5); MEAN CORPUSCULAR VOLUME 94.8 fl (80.0-96.0); MONO # 0.7 10^3/uL (0.0-0.8); MONO % 8.4 % (2.0-8.0); NEUTROPHILS # 5.8 10^3/uL (1.5-8.5); NEUTROPHILS % 74.4 % (36.0-66.0); PLATELET COUNT, AUTOMATED 167 10^3/uL (150-450); RED BLOOD COUNT 2.86 10^6/uL (4.00-5.40); WHITE BLOOD COUNT 7.8 10^3/uL (4.0-10.0)
[2023-06-04 06:41] VITALS: BP 156/78
[2023-06-04 06:57] LABS: CALCIUM LEVEL 8.5 MG/DL (8.3-10.6); CREATININE FOR GFR 1.15 MG/DL (0.55-1.30); GLOMERULAR FILTRATION RATE 48.6 (>39); MAGNESIUM LEVEL 1.5 MG/DL (1.8-2.4); POTASSIUM SERUM 3.1 MMOL/L (3.5-5.1)
[2023-06-04] MEDS ORDERED: POTASSIUM CHLORIDE 10MEQ SR TABLET PO ONE (07:30)
[2023-06-04] MEDS: TIOTROPIUM INHALER/CAPSULE (SPIRIVA) INH SCH (08:09)
[2023-06-04] MEDS: ADVAIR HFA 230/21MCG INHALER INH SCH ×2 (08:09→19:53)
[2023-06-04] MEDS: SERTRALINE HCL 50 MG TAB PO SCH (08:30)
[2023-06-04] MEDS: OMEPRAZOLE 20MG CAP PO SCH ×2 (08:30→20:27)
[2023-06-04] MEDS: MAG SULF 1GM/100ML (MAG RUN) 1 GM in IV 1 EA IV SCH ×3 (08:30→10:22)
[2023-06-04] MEDS: ATORVASTATIN 20 MG TAB PO SCH (08:30)
[2023-06-04] MEDS: allopurinoL 300 MG TAB PO SCH (08:33)
[2023-06-04] MEDS: GABAPENTIN 300 MG CAP PO SCH ×3 (08:33→20:27)
[2023-06-04] MEDS: LOSARTAN 50MG TABLET PO SCH (08:33)
[2023-06-04] MEDS: MICONAZOLE 2 % POWDER (DESENEX) TOP SCH ×2 (08:34→20:28)
[2023-06-04] MEDS: BISACODYL 10MG SUPP PR SCH ×2 (08:34→20:27)
[2023-06-04] MEDS: busPIRone 5 MG TAB PO SCH ×2 (12:49→20:27)
[2023-06-04 14:23] VITALS: BP 131/61; TEMP 98.1; O2SAT 93
[2023-06-04 20:10] VITALS: BP 132/63; TEMP 98.1; O2SAT 93
[2023-06-05 05:20] VITALS: BP 130/63; TEMP 98.6; O2SAT 90
[2023-06-05] MEDS: LEVOTHYROXINE 150MCG TABLET (0.15MG) PO SCH (05:33)
[2023-06-05] MEDS: HEPARIN SOD (PORCINE) 5000UNITS/ML 1ML VIAL/SYRINGE SC SCH (05:33)
[2023-06-05] MEDS: INSULIN LISPRO (NovoLOG) PER UNIT SC SCH (05:33)
[2023-06-05 06:11] LABS: BASO % 0.2 % (0.0-1.0); EOS # 0.2 10^3/uL (0.0-0.5); EOS % 1.9 % (0.0-3.0); HEMATOCRIT 29.3 % (36.0-47.0); HEMOGLOBIN 9.4 g/dl (12.0-15.5); LYMPH # 1.2 10^3/uL (1.5-5.0); LYMPH % 13.3 % (24.0-44.0); MEAN CORPUSCULAR HGB CONC 32.1 g/dl (32.0-36.5); MEAN CORPUSCULAR VOLUME 93.6 fl (80.0-96.0); MONO # 0.6 10^3/uL (0.0-0.8); MONO % 7.2 % (2.0-8.0); NEUTROPHILS # 6.6 10^3/uL (1.5-8.5); NEUTROPHILS % 77.1 % (36.0-66.0); PLATELET COUNT, AUTOMATED 184 10^3/uL (150-450); RED BLOOD COUNT 3.13 10^6/uL (4.00-5.40); WHITE BLOOD COUNT 8.6 10^3/uL (4.0-10.0)
[2023-06-05 06:35] LABS: CALCIUM LEVEL 8.1 MG/DL (8.3-10.6); CREATININE FOR GFR 1.28 MG/DL (0.55-1.30); GLOMERULAR FILTRATION RATE 42.9 (>39); MAGNESIUM LEVEL 1.8 MG/DL (1.8-2.4); POTASSIUM SERUM 3.6 MMOL/L (3.5-5.1)
[2023-06-05] MEDS: TIOTROPIUM INHALER/CAPSULE (SPIRIVA) INH SCH (07:35)
[2023-06-05] MEDS: ADVAIR HFA 230/21MCG INHALER INH SCH (07:36)
[2023-06-05] MEDS: OMEPRAZOLE 20MG CAP PO SCH (08:02)
[2023-06-05] MEDS: ATORVASTATIN 20 MG TAB PO SCH (08:02)
[2023-06-05] MEDS: SERTRALINE HCL 50 MG TAB PO SCH (08:02)
[2023-06-05] MEDS: GABAPENTIN 300 MG CAP PO SCH (08:02)
[2023-06-05] MEDS: allopurinoL 300 MG TAB PO SCH (08:02)
[2023-06-05 08:03] VITALS: BP 126/68
[2023-06-05] MEDS: BISACODYL 10MG SUPP PR SCH (08:03)
[2023-06-05] MEDS: LOSARTAN 50MG TABLET PO SCH (08:03)
[2023-06-05] MEDS: MICONAZOLE 2 % POWDER (DESENEX) TOP SCH (08:04)
[2023-06-05] MEDS ORDERED: FUROSEMIDE 40MG/4ML VIAL IV ONE (09:00)
[2023-06-05] MEDS ORDERED: FUROSEMIDE 20 MG TAB PO ONE (11:00)
== END 2023-06-05 11:10 | disposition home or self-care (01) | DRG 389 ==
LOC: M ED 03:02 → EDBD 03:02 → M ED INP 11:08 → ENRESERV 11:51 → M MSPAV 12:45
PROVIDERS: ADMIT Student in an Organized Health Care Education/Training Program; ATTEND Internal Medicine Nephrology
DX: K56.600 Partial intestinal obstruction, unspecified as to cause (principal); N17.9 Acute kidney failure, unspecified; Z68.41 Body mass index [BMI] 40.0-44.9, adult; I50.30 Unspecified diastolic (congestive) heart failure; J44.9 Chronic obstructive pulmonary disease, unspecified; G47.33 Obstructive sleep apnea (adult) (pediatric); I73.9 Peripheral vascular disease, unspecified; E78.5 Hyperlipidemia, unspecified; E66.9 Obesity, unspecified; M10.9 Gout, unspecified; E11.51 Type 2 diabetes mellitus with diabetic peripheral angiopathy without gangrene; E11.42 Type 2 diabetes mellitus with diabetic polyneuropathy; D50.9 Iron deficiency anemia, unspecified; N18.30 Chronic kidney disease, stage 3 unspecified; E11.22 Type 2 diabetes mellitus with diabetic chronic kidney disease; E03.9 Hypothyroidism, unspecified; F41.9 Anxiety disorder, unspecified; I27.20 Pulmonary hypertension, unspecified; K44.9 Diaphragmatic hernia without obstruction or gangrene; E11.43 Type 2 diabetes mellitus with diabetic autonomic (poly)neuropathy; F32.A Depression, unspecified; I08.3 Combined rheumatic disorders of mitral, aortic and tricuspid valves; E83.42 Hypomagnesemia; M19.90 Unspecified osteoarthritis, unspecified site; N28.1 Cyst of kidney, acquired; E11.319 Type 2 diabetes mellitus with unspecified diabetic retinopathy without macular edema; Z90.49 Acquired absence of other specified parts of digestive tract; Z90.79 Acquired absence of other genital organ(s); Z79.4 Long term (current) use of insulin; Z79.890 Hormone replacement therapy; Z79.84 Long term (current) use of oral hypoglycemic drugs; Z79.899 Other long term (current) drug therapy; Z88.0 Allergy status to penicillin; Z88.2 Allergy status to sulfonamides; Z88.8 Allergy status to other drugs, medicaments and biological substances; Z91.040 Latex allergy status; Z20.822 Contact with and (suspected) exposure to COVID-19; Z96.652 Presence of left artificial knee joint; Z96.612 Presence of left artificial shoulder joint; Z66 Do not resuscitate

== ENCOUNTER → 2023-08-05 | Outpatient (REF) | payer MEDICARE, MEDICAID ==
[~2023-08-05] MED LIST changes: +ALLO300T2 PO; +GABA600T4 PO; +INSU100I48 SC; +LEVO150T7 PO; +MAGN400T2 PO; +SENN-186 PO; +[UNRECOGNIZED DRUG - CODE] SC
[2023-08-05 17:06] LABS: HEMATOCRIT 30.9 % (36.0-47.0); HEMOGLOBIN 9.6 g/dl (12.0-15.5); MEAN CORPUSCULAR HEMOGLOBIN 30.3 pg (27.0-33.0); MEAN CORPUSCULAR HGB CONC 31.1 g/dl (32.0-36.5); MEAN CORPUSCULAR VOLUME 97.5 fl (80.0-96.0); PLATELET COUNT, AUTOMATED 239 10^3/uL (150-450); RED BLOOD COUNT 3.17 10^6/uL (4.00-5.40); WHITE BLOOD COUNT 8.2 10^3/uL (4.0-10.0)
[2023-08-05 17:38] LABS: CREATININE, URINE 49.2 MG/DL; MAU/CREAT RATIO 93.4 MCG/MG (0.0-30.0)
[2023-08-05 17:45] LABS: HEMOGLOBIN A1c 5.5 % (4.0-6.0)
[2023-08-05 17:54] LABS: ALBUMIN 3.1 G/DL (3.2-5.2); BILIRUBIN,TOTAL 0.3 MG/DL (0.3-1.2); CALCIUM LEVEL 9.1 MG/DL (8.3-10.6); CHOLESTEROL RISK RATIO 3.22 (<5); CREATININE FOR GFR 1.79 MG/DL (0.55-1.30); GLOMERULAR FILTRATION RATE 29.2 (>39); HDL CHOLESTEROL 57.4 MG/DL (>40); LDL CHOLESTEROL 101.6 MG/DL (<100); NON-HDL-C 127.6 MG/DL; POTASSIUM SERUM 4.6 MMOL/L (3.5-5.1); THYROID STIMULATING HORMONE 5.868 uIU/ML (0.55-4.78); TOTAL 25(OH) VITAMIN D 31.9 NG/ML (20.0-100.0); TOTAL PROTEIN 5.7 G/DL (5.7-8.2)
== END ==
LOC: M SFHCPLAZ 11:41
PROVIDERS: ATTEND Internal Medicine Hematology
DX: E11.21 Type 2 diabetes mellitus with diabetic nephropathy (principal); D63.8 Anemia in other chronic diseases classified elsewhere; Z79.899 Other long term (current) drug therapy

== ENCOUNTER 2023-08-25 13:36 | Outpatient (CLI) | payer MEDICAID, MEDICARE ==
[~2023-08-25 13:36] MED LIST changes: +ALBUTEROL SULFATE 2.5MG/0.5ML INH NEB SOLN INH PRN; +EPINEPHrine INJ 1 MG/ML 1ML AMP IM PRN; +NS 1,000 ML IV SCH; +diphenhydrAMINE 50MG/ML VIAL IV PRN; +methylPREDNISolone 125MG 2ML VIAL IV PRN
[2023-08-25] MEDS ORDERED: IRON SUCROSE 200 MG in NS 100 ML IV ONE (14:00)
[2023-08-25 14:05] VITALS: BP 152/91; O2SAT 99
[2023-08-25 15:40] VITALS: BP 169/79; O2SAT 96
== END 2023-08-25 15:40 ==
LOC: M INFU 13:36
PROVIDERS: ATTEND Internal Medicine Hematology
DX: E03.9 Hypothyroidism, unspecified (principal); D63.8 Anemia in other chronic diseases classified elsewhere; Z88.0 Allergy status to penicillin; Z88.2 Allergy status to sulfonamides; Z88.5 Allergy status to narcotic agent; Z88.8 Allergy status to other drugs, medicaments and biological substances

== ENCOUNTER 2023-09-01 14:00 | Outpatient (CLI) | payer MEDICAID, MEDICARE ==
[~2023-09-01] VITALS: Ht 152.4 cm; Wt 93.0 kg
[~2023-09-01 14:00] MED LIST changes: +IRON SUCROSE 200 MG in NS 100 ML IV ONE
[2023-09-01 14:12] VITALS: BP 116/52; O2SAT 93
[2023-09-01 16:05] VITALS: BP 155/70; O2SAT 96
== END 2023-09-01 16:05 ==
LOC: M INFU 14:00
PROVIDERS: ATTEND Internal Medicine Hematology
DX: E03.9 Hypothyroidism, unspecified (principal); D63.8 Anemia in other chronic diseases classified elsewhere; Z88.0 Allergy status to penicillin; Z88.2 Allergy status to sulfonamides; Z88.5 Allergy status to narcotic agent; Z88.8 Allergy status to other drugs, medicaments and biological substances
CPT/HCPCS: 96365; J1756

== ENCOUNTER 2023-09-08 14:25 | Outpatient (CLI) | payer MEDICAID, MEDICARE ==
[~2023-09-08] VITALS: Ht 152.4 cm; Wt 93.0 kg
[2023-09-08 14:25] VITALS: BP 158/80; O2SAT 97
[~2023-09-08 14:25] MED LIST changes: -IRON SUCROSE 200 MG in NS 100 ML IV ONE
[2023-09-08] MEDS: IRON SUCROSE 200 MG in NS 100 ML IV ONE (14:36)
[2023-09-08 15:45] VITALS: BP 134/61; O2SAT 96
== END 2023-09-08 15:45 ==
LOC: M INFU 14:25
PROVIDERS: ATTEND Internal Medicine Hematology
DX: E03.9 Hypothyroidism, unspecified (principal); D63.8 Anemia in other chronic diseases classified elsewhere; Z88.0 Allergy status to penicillin; Z88.2 Allergy status to sulfonamides; Z88.5 Allergy status to narcotic agent; Z88.8 Allergy status to other drugs, medicaments and biological substances

== ENCOUNTER 2023-09-15 14:05 | Outpatient (CLI) | payer MEDICAID, MEDICARE ==
[~2023-09-15] VITALS: Ht 152.4 cm; Wt 93.0 kg
[~2023-09-15 14:05] MED LIST changes: +IRON SUCROSE 200 MG in NS 100 ML IV ONE; +IRON SUCROSE 200 MG in NS 100 ML OVER 1 HR IV ONE
[2023-09-15 14:10] VITALS: BP 152/67; O2SAT 97
[2023-09-15] MEDS: IRON SUCROSE 200 MG in NS 100 ML IV ONE (14:43)
== END 2023-09-15 15:55 ==
LOC: M INFU 14:05
PROVIDERS: ATTEND Internal Medicine Hematology
DX: D64.9 Anemia, unspecified (principal); D63.8 Anemia in other chronic diseases classified elsewhere; Z88.0 Allergy status to penicillin; Z88.2 Allergy status to sulfonamides; Z88.5 Allergy status to narcotic agent; Z88.8 Allergy status to other drugs, medicaments and biological substances
CPT/HCPCS: 96365; J1756

== ENCOUNTER → 2023-12-15 | Outpatient (REF) | payer MEDICARE, MEDICAID ==
[~2023-12-15] MED LIST changes: -ALBUTEROL SULFATE 2.5MG/0.5ML INH NEB SOLN INH PRN; +DOXY-323; +DOXY-323 PO; -DOXY-443; -DOXY-443 PO; -EPINEPHrine INJ 1 MG/ML 1ML AMP IM PRN; +IMIP1TAB3 PO; -IMIP25TA3 PO; -IRON SUCROSE 200 MG in NS 100 ML IV ONE; -IRON SUCROSE 200 MG in NS 100 ML OVER 1 HR IV ONE; -NS 1,000 ML IV SCH; -diphenhydrAMINE 50MG/ML VIAL IV PRN; -methylPREDNISolone 125MG 2ML VIAL IV PRN
[2023-12-15 18:51] LABS: HEMATOCRIT 28.6 % (36.0-47.0); HEMOGLOBIN 8.9 g/dl (12.0-15.5); MEAN CORPUSCULAR HEMOGLOBIN 30.4 pg (27.0-33.0); MEAN CORPUSCULAR HGB CONC 31.1 g/dl (32.0-36.5); MEAN CORPUSCULAR VOLUME 97.6 fl (80.0-96.0); PLATELET COUNT, AUTOMATED 260 10^3/uL (150-450); RED BLOOD COUNT 2.93 10^6/uL (4.00-5.40); WHITE BLOOD COUNT 8.8 10^3/uL (4.0-10.0)
[2023-12-15 19:07] LABS: C REACTIVE PROTEIN QUANTITATIV 3.2 MG/DL (<1.0)
[2023-12-15 19:10] LABS: ALBUMIN 2.9 G/DL (3.2-5.2); BILIRUBIN,TOTAL 0.3 MG/DL (0.3-1.2); CALCIUM LEVEL 8.6 MG/DL (8.3-10.6); CHOLESTEROL RISK RATIO 3.06 (<5); GLOMERULAR FILTRATION RATE 25.6 (>39); HDL CHOLESTEROL 54.4 MG/DL (>40); HEMOGLOBIN A1c 5.6 % (4.0-6.0); NON-HDL-C 112.6 MG/DL; POTASSIUM SERUM 3.9 MMOL/L (3.5-5.1); TOTAL PROTEIN 5.7 G/DL (5.7-8.2)
[2023-12-15 19:13] LABS: THYROID STIMULATING HORMONE 9.065 uIU/ML (0.55-4.78); TOTAL 25(OH) VITAMIN D 23.4 NG/ML (20.0-100.0)
[2023-12-15 19:15] LABS: FREE T4 0.9 NG/DL (0.89-1.76)
== END ==
LOC: M SFHCPLAZ 11:23
PROVIDERS: ATTEND Internal Medicine Hematology
DX: E11.21 Type 2 diabetes mellitus with diabetic nephropathy (principal)

== ENCOUNTER → 2023-12-16 | Outpatient (REF) | payer MEDICARE, MEDICAID ==
[2023-12-16 15:17] LABS: FERRITIN 471.4 NG/ML (7.3-270.7); PERCENT SATURATION 21.1 % (13.2-45.0)
== END ==
LOC: M LABDRWAD 13:05
PROVIDERS: ATTEND Internal Medicine Hematology
DX: E03.9 Hypothyroidism, unspecified (principal); D63.8 Anemia in other chronic diseases classified elsewhere

== ENCOUNTER → 2023-12-22 | Outpatient (CLI) | payer MEDICAID, MEDICARE, OTHER ==
[2023-12-22 13:07] LABS: HEMATOCRIT 28.9 % (36.0-47.0); HEMOGLOBIN 9.1 g/dl (12.0-15.5); MEAN CORPUSCULAR HEMOGLOBIN 30.5 pg (27.0-33.0); MEAN CORPUSCULAR HGB CONC 31.5 g/dl (32.0-36.5); PLATELET COUNT, AUTOMATED 244 10^3/uL (150-450); RED BLOOD COUNT 2.98 10^6/uL (4.00-5.40); WHITE BLOOD COUNT 8.2 10^3/uL (4.0-10.0)
[2023-12-23 15:14] LABS: IgG P18 AB Absent (.); IgG P23 AB Absent (.); IgG P28 AB Absent (.); IgG P30 AB Absent (.); IgG P39 AB Absent (.); IgG P41 AB Absent (.); IgG P45 AB Absent (.); IgG P66 AB Absent (.); IgG P93 AB Absent (.); IgM P23 AB Absent (.); IgM P39 AB Absent (.); IgM P41 AB Absent (.); LYME IgG WB INTERPRETATION Negative (.); LYME IgM WB INTERPRETATION Negative (.)
== END ==
LOC: M PLALAB 10:41
PROVIDERS: ATTEND Physician Assistant Medical
DX: L28.2 Other prurigo (principal); I50.32 Chronic diastolic (congestive) heart failure; I73.9 Peripheral vascular disease, unspecified; N18.4 Chronic kidney disease, stage 4 (severe); J44.9 Chronic obstructive pulmonary disease, unspecified; T14.8XXA Other injury of unspecified body region, initial encounter; W57.XXXA Bitten or stung by nonvenomous insect and other nonvenomous arthropods, initial encounter; Y99.9 Unspecified external cause status
CPT/HCPCS: 36415; 85027; 86617; 86618; 87468; 87469; 87478; G0463

== ENCOUNTER → 2024-01-04 | Outpatient (REF) | payer MEDICARE, MEDICAID ==
[2024-01-04 13:18] LABS: BASO % 0.4 % (0.0-1.0); EOS # 0.3 10^3/uL (0.0-0.5); EOS % 3.5 % (0.0-3.0); HEMATOCRIT 29.7 % (36.0-47.0); HEMOGLOBIN 9.3 g/dl (12.0-15.5); LYMPH # 1.7 10^3/uL (1.5-5.0); MEAN CORPUSCULAR HEMOGLOBIN 30.6 pg (27.0-33.0); MEAN CORPUSCULAR HGB CONC 31.3 g/dl (32.0-36.5); MEAN CORPUSCULAR VOLUME 97.7 fl (80.0-96.0); MONO # 0.7 10^3/uL (0.0-0.8); MONO % 7.7 % (2.0-8.0); NEUTROPHILS # 5.8 10^3/uL (1.5-8.5); NEUTROPHILS % 67.2 % (36.0-66.0); PLATELET COUNT, AUTOMATED 210 10^3/uL (150-450); RED BLOOD COUNT 3.04 10^6/uL (4.00-5.40); WHITE BLOOD COUNT 8.6 10^3/uL (4.0-10.0)
== END ==
LOC: M SFHCADAM 09:11
PROVIDERS: ATTEND Internal Medicine Hematology
DX: N18.30 Chronic kidney disease, stage 3 unspecified (principal); D63.8 Anemia in other chronic diseases classified elsewhere; E53.8 Deficiency of other specified B group vitamins; L90.0 Lichen sclerosus et atrophicus; E11.22 Type 2 diabetes mellitus with diabetic chronic kidney disease

== ENCOUNTER → 2024-01-26 | Outpatient (REF) | payer MEDICARE, MEDICAID ==
[2024-01-26 18:59] LABS: BILIRUBIN,TOTAL 0.3 MG/DL (0.3-1.2); CALCIUM LEVEL 8.7 MG/DL (8.3-10.6); CREATININE FOR GFR 1.78 MG/DL (0.55-1.30); GLOMERULAR FILTRATION RATE 29.3 (>39); POTASSIUM SERUM 3.9 MMOL/L (3.5-5.1); THYROID STIMULATING HORMONE 2.411 uIU/ML (0.55-4.78); TOTAL PROTEIN 5.7 G/DL (5.7-8.2)
[2024-01-26 19:13] LABS: BASO % 0.4 % (0.0-1.0); EOS # 0.3 10^3/uL (0.0-0.5); EOS % 3.6 % (0.0-3.0); HEMATOCRIT 30.4 % (36.0-47.0); HEMOGLOBIN 9.6 g/dl (12.0-15.5); LYMPH # 1.3 10^3/uL (1.5-5.0); MEAN CORPUSCULAR HEMOGLOBIN 30.5 pg (27.0-33.0); MEAN CORPUSCULAR HGB CONC 31.6 g/dl (32.0-36.5); MEAN CORPUSCULAR VOLUME 96.5 fl (80.0-96.0); MONO # 0.6 10^3/uL (0.0-0.8); MONO % 7.2 % (2.0-8.0); NEUTROPHILS # 6.1 10^3/uL (1.5-8.5); NEUTROPHILS % 72.4 % (36.0-66.0); PLATELET COUNT, AUTOMATED 201 10^3/uL (150-450); RED BLOOD COUNT 3.15 10^6/uL (4.00-5.40); WHITE BLOOD COUNT 8.4 10^3/uL (4.0-10.0)
== END ==
LOC: M SFHCPLAZ 11:38
PROVIDERS: ATTEND Internal Medicine Hematology
DX: N18.9 Chronic kidney disease, unspecified (principal); D63.8 Anemia in other chronic diseases classified elsewhere

== ENCOUNTER → 2024-01-27 | Outpatient (REF) | payer MEDICARE, MEDICAID ==
[2024-01-27 19:33] LABS: PERCENT SATURATION 22.6 % (13.2-45.0)
[2024-01-27 19:37] LABS: FERRITIN 559.9 NG/ML (7.3-270.7)
== END ==
LOC: M LAB REF 17:48
PROVIDERS: ATTEND Internal Medicine Nephrology
DX: N18.30 Chronic kidney disease, stage 3 unspecified (principal); D63.1 Anemia in chronic kidney disease

== ENCOUNTER 2024-02-05 17:21 | Emergency (ER) | payer MEDICARE, MEDICAID ==
[~2024-02-05] VITALS: Ht 152.4 cm; Wt 40.9 kg
[2024-02-05 23:07] LABS: CALCIUM LEVEL 8.6 MG/DL (8.3-10.6); CREATININE FOR GFR 1.98 MG/DL (0.55-1.30); GLOMERULAR FILTRATION RATE 25.9 (>39); POTASSIUM SERUM 3.3 MMOL/L (3.5-5.1)
[2024-02-06 00:16] VITALS: BP 132/77; TEMP 97.4; O2SAT 100
== END 2024-02-06 01:07 | disposition home or self-care (01) ==
LOC: M ED 17:21
DX: M54.12 Radiculopathy, cervical region (principal); R51.9 Headache, unspecified; I50.9 Heart failure, unspecified; E11.9 Type 2 diabetes mellitus without complications; I10 Essential (primary) hypertension; J44.9 Chronic obstructive pulmonary disease, unspecified; F41.9 Anxiety disorder, unspecified; F32.9 Major depressive disorder, single episode, unspecified; N18.30 Chronic kidney disease, stage 3 unspecified; E03.9 Hypothyroidism, unspecified; Z79.4 Long term (current) use of insulin; Z79.899 Other long term (current) drug therapy; Z88.0 Allergy status to penicillin; Z88.2 Allergy status to sulfonamides; Z88.5 Allergy status to narcotic agent; Z88.8 Allergy status to other drugs, medicaments and biological substances; Z91.89 Other specified personal risk factors, not elsewhere classified

== ENCOUNTER → 2024-04-21 | Outpatient (CLI) | payer MEDICARE, MEDICAID ==
[~2024-04-21] MED LIST changes: -DOXY-323; -DOXY-323 PO; +DOXY-441; +DOXY-441 PO; +GABA-1172 PO; +GABA-1490 PO; -GABA-282 PO; -GABA600T4 PO; -IMIP1TAB3 PO; +IMIP25TA13 PO
[2024-04-21 15:18] LABS: BASO % 0.2 % (0.0-1.0); EOS # 0.2 10^3/uL (0.0-0.5); EOS % 1.6 % (0.0-3.0); HEMATOCRIT 35.6 % (36.0-47.0); HEMOGLOBIN 11.3 g/dl (12.0-15.5); LYMPH % 14.8 % (24.0-44.0); MEAN CORPUSCULAR HEMOGLOBIN 30.3 pg (27.0-33.0); MEAN CORPUSCULAR HGB CONC 31.7 g/dl (32.0-36.5); MEAN CORPUSCULAR VOLUME 95.4 fl (80.0-96.0); MONO # 0.8 10^3/uL (0.0-0.8); NEUTROPHILS # 10.3 10^3/uL (1.5-8.5); NEUTROPHILS % 76.8 % (36.0-66.0); PLATELET COUNT, AUTOMATED 225 10^3/uL (150-450); RED BLOOD COUNT 3.73 10^6/uL (4.00-5.40); WHITE BLOOD COUNT 13.5 10^3/uL (4.0-10.0)
[2024-04-21 15:51] LABS: ALBUMIN 3.2 G/DL (3.2-5.2); BILIRUBIN,TOTAL 0.3 MG/DL (0.3-1.2); CALCIUM LEVEL 8.9 MG/DL (8.3-10.6); GLOMERULAR FILTRATION RATE 25.6 (>39); POTASSIUM SERUM 3.3 MMOL/L (3.5-5.1); TOTAL PROTEIN 6.2 G/DL (5.7-8.2)
[2024-04-21 15:52] LABS: FERRITIN 720.1 NG/ML (7.3-270.7); THYROID STIMULATING HORMONE 8.664 uIU/ML (0.55-4.78)
[2024-04-21 15:53] LABS: FREE T4 0.94 NG/DL (0.89-1.76)
== END ==
LOC: M RAD 14:52
PROVIDERS: ATTEND Student in an Organized Health Care Education/Training Program
DX: R63.4 Abnormal weight loss (principal); R53.81 Other malaise; R53.83 Other fatigue; I50.32 Chronic diastolic (congestive) heart failure

== ENCOUNTER → 2024-04-21 | Outpatient (REF) | payer MEDICARE, MEDICAID ==
[~2024-04-21] MED LIST changes: +DOXY-323; +DOXY-323 PO; -DOXY-441; -DOXY-441 PO; -GABA-1172 PO; +GABA-282 PO; +IMIP1TAB3 PO; -IMIP25TA13 PO
== END ==
LOC: M SFHCPLAZ 14:08
PROVIDERS: ATTEND Student in an Organized Health Care Education/Training Program
DX: R63.4 Abnormal weight loss (principal); R35.0 Frequency of micturition; R53.81 Other malaise; R53.83 Other fatigue; I50.32 Chronic diastolic (congestive) heart failure

== ENCOUNTER → 2024-05-02 | Outpatient (REF) | payer MEDICARE, MEDICAID ==
[~2024-05-02] MED LIST changes: -DOXY-323; -DOXY-323 PO; +DOXY-441; +DOXY-441 PO; +GABA-1172 PO; -GABA-282 PO; -IMIP1TAB3 PO; +IMIP25TA13 PO
[2024-05-02 18:21] LABS: CALCIUM LEVEL 7.9 MG/DL (8.3-10.6); CREATININE FOR GFR 1.68 MG/DL (0.55-1.30); GLOMERULAR FILTRATION RATE 31.3 (>39); POTASSIUM SERUM 3.5 MMOL/L (3.5-5.1)
== END ==
LOC: M SFHCADAM 11:08
PROVIDERS: ATTEND Family Medicine
DX: E87.6 Hypokalemia (principal)

== ENCOUNTER → 2024-05-17 | Outpatient (REF) | payer MEDICARE, MEDICAID ==
[2024-05-17 18:54] LABS: ALBUMIN 2.9 G/DL (3.2-5.2); BILIRUBIN,TOTAL 0.4 MG/DL (0.3-1.2); CALCIUM LEVEL 8.6 MG/DL (8.3-10.6); CREATININE FOR GFR 1.85 MG/DL (0.55-1.30); POTASSIUM SERUM 4.5 MMOL/L (3.5-5.1); TOTAL PROTEIN 5.8 G/DL (5.7-8.2)
== END ==
LOC: M LABDRWAD 17:06 → M SFHCPLAZ 17:06
PROVIDERS: ATTEND Internal Medicine Hematology
DX: E11.21 Type 2 diabetes mellitus with diabetic nephropathy (principal); I50.32 Chronic diastolic (congestive) heart failure

== ENCOUNTER → 2024-05-31 | Outpatient (REF) | payer MEDICARE, MEDICAID ==
[2024-05-31 19:44] LABS: CREATININE FOR GFR 1.8 MG/DL (0.55-1.30); GLOMERULAR FILTRATION RATE 28.9 (>39); POTASSIUM SERUM 4.8 MMOL/L (3.5-5.1)
== END ==
LOC: M SFHCADAM 15:05
PROVIDERS: ATTEND Internal Medicine Hematology
DX: E87.6 Hypokalemia (principal)

== ENCOUNTER → 2024-08-29 | Outpatient (REF) | payer MEDICARE, MEDICAID ==
[~2024-08-29] MED LIST changes: -ADV500INH INH; +ADVA1AER10 INH; +NYST1POW3 TOP; -NYST1POW9 TOP
[2024-08-29 18:10] LABS: HEMATOCRIT 32.1 % (36.0-47.0)
[2024-08-29 18:12] LABS: BASO % 0.2 % (0.0-1.0); EOS # 0.2 10^3/uL (0.0-0.5); EOS % 1.6 % (0.0-3.0); HEMATOCRIT 32.3 % (36.0-47.0); HEMOGLOBIN 10.3 g/dl (12.0-15.5); LYMPH # 1.1 10^3/uL (1.5-5.0); LYMPH % 7.3 % (24.0-44.0); MEAN CORPUSCULAR HEMOGLOBIN 30.4 pg (27.0-33.0); MEAN CORPUSCULAR HGB CONC 31.9 g/dl (32.0-36.5); MEAN CORPUSCULAR VOLUME 95.3 fl (80.0-96.0); MONO # 0.7 10^3/uL (0.0-0.8); MONO % 4.6 % (2.0-8.0); NEUTROPHILS # 13.1 10^3/uL (1.5-8.5); NEUTROPHILS % 85.7 % (36.0-66.0); PLATELET COUNT, AUTOMATED 273 10^3/uL (150-450); RED BLOOD COUNT 3.39 10^6/uL (4.00-5.40); WHITE BLOOD COUNT 15.3 10^3/uL (4.0-10.0)
[2024-08-29 18:30] LABS: ALKALINE PHOSPHATASE 90 U/L (35-104); ALT/SGPT < 9 U/L (7.0-40); AST/SGOT 12 U/L (<34); BILIRUBIN,TOTAL 0.3 MG/DL (0.3-1.2); BLOOD UREA NITROGEN 29 MG/DL (9-23); CALCIUM LEVEL 8.7 MG/DL (8.3-10.6); CARBON DIOXIDE LEVEL 33 MMOL/L (20-31); CHLORIDE LEVEL 103 MMOL/L (98-107); CREATININE FOR GFR 1.52 MG/DL (0.55-1.30); GLOMERULAR FILTRATION RATE 35.1 (>39); GLUCOSE, FASTING 90 MG/DL (74-106); IRON (FE) 20 UG/DL (50-170); PERCENT SATURATION 7.9 % (13.2-45.0); POTASSIUM SERUM 4.7 MMOL/L (3.5-5.1); SODIUM LEVEL 142 MMOL/L (136-145); TOTAL IRON BINDING CAPACITY 252 UG/DL (250-425); TOTAL PROTEIN 5.8 G/DL (5.7-8.2)
[2024-08-29 18:32] LABS: FERRITIN 551.6 NG/ML (7.3-270.7); FREE T4 0.82 NG/DL (0.89-1.76)
[2024-08-29 18:33] LABS: VITAMIN B12 LEVEL 620 PG/ML (211-911)
[2024-08-29 18:59] LABS: HEMOGLOBIN A1c 6.1 % (4.0-6.0)
== END ==
LOC: M SFHCPLAZ 13:13
PROVIDERS: ATTEND Student in an Organized Health Care Education/Training Program
DX: E11.21 Type 2 diabetes mellitus with diabetic nephropathy (principal); E03.9 Hypothyroidism, unspecified; E53.8 Deficiency of other specified B group vitamins; D63.8 Anemia in other chronic diseases classified elsewhere

== ENCOUNTER 2024-09-21 10:57 | Outpatient (CLI) | payer MEDICAID, MEDICARE, OTHER ==
[~2024-09-21] VITALS: Ht 152.4 cm; Wt 81.8 kg
[~2024-09-21 10:57] MED LIST changes: +ALBUTEROL SULFATE 2.5MG/0.5ML INH NEB SOLN INH PRN; +EPINEPHrine INJ 1 MG/ML 1ML AMP IM PRN; +diphenhydrAMINE 50MG/ML VIAL IV PRN; +methylPREDNISolone 125MG 2ML VIAL IV PRN
[2024-09-21 11:10] VITALS: BP 134/81; O2SAT 97
[2024-09-21] MEDS: IRON SUCROSE 300 MG in NS 250 ML OVER 90 MIN. IV ONE (11:48)
[2024-09-21 13:20] VITALS: BP 126/68; O2SAT 98
== END 2024-09-21 13:20 ==
LOC: M INFU 10:57
PROVIDERS: ATTEND Internal Medicine Hematology
DX: K64.9 Unspecified hemorrhoids (principal); D63.8 Anemia in other chronic diseases classified elsewhere; Z88.0 Allergy status to penicillin; Z88.2 Allergy status to sulfonamides; Z88.5 Allergy status to narcotic agent; Z88.8 Allergy status to other drugs, medicaments and biological substances; Z91.89 Other specified personal risk factors, not elsewhere classified
CPT/HCPCS: 96365; J1756

== ENCOUNTER 2024-10-05 12:30 | Outpatient (CLI) | payer MEDICAID, MEDICARE ==
[~2024-10-05] VITALS: Ht 154.9 cm; Wt 81.4 kg
[2024-10-05 12:35] VITALS: BP 116/58; O2SAT 100
[2024-10-05] MEDS: IRON SUCROSE 300 MG in NS 250 ML OVER 90 MIN. IV ONE (12:50)
== END 2024-10-05 14:35 ==
LOC: M INFU 12:30
PROVIDERS: ATTEND Internal Medicine Hematology
DX: N18.32 Chronic kidney disease, stage 3b (principal); D63.8 Anemia in other chronic diseases classified elsewhere
CPT/HCPCS: 96365; J1756

== ENCOUNTER → 2024-10-17 | Outpatient (REF) | payer MEDICARE, MEDICAID ==
[~2024-10-17] MED LIST changes: -ALBUTEROL SULFATE 2.5MG/0.5ML INH NEB SOLN INH PRN; -EPINEPHrine INJ 1 MG/ML 1ML AMP IM PRN; -diphenhydrAMINE 50MG/ML VIAL IV PRN; -methylPREDNISolone 125MG 2ML VIAL IV PRN
== END ==
LOC: M SFHCPLAZ 16:54
PROVIDERS: ATTEND Physician Assistant Medical
DX: J40 Bronchitis, not specified as acute or chronic (principal)

== ENCOUNTER → 2024-10-25 | Outpatient (CLI) | payer MEDICARE, MEDICAID | LOC: M PLAIMG 14:21 | PROVIDERS: ATTEND Physician Assistant Medical | DX: J40 Bronchitis, not specified as acute or chronic (principal) ==

== ENCOUNTER → 2024-11-16 | Outpatient (CLI) | payer MEDICARE | LOC: M SLEEP HO 10:55 | PROVIDERS: ATTEND Internal Medicine Cardiovascular Disease | DX: I50.810 Right heart failure, unspecified (principal) ==

== ENCOUNTER → 2024-11-21 | Outpatient (REF) | payer MEDICARE, MEDICAID ==
[2024-11-21 19:31] LABS: BASO % 0.6 % (0.0-1.0); EOS # 0.1 10^3/uL (0.0-0.5); EOS % 1.6 % (0.0-3.0); HEMATOCRIT 30.9 % (36.0-47.0); HEMOGLOBIN 9.6 g/dl (12.0-15.5); LYMPH # 1.5 10^3/uL (1.5-5.0); LYMPH % 22.6 % (24.0-44.0); MEAN CORPUSCULAR HEMOGLOBIN 29.6 pg (27.0-33.0); MEAN CORPUSCULAR HGB CONC 31.1 g/dl (32.0-36.5); MEAN CORPUSCULAR VOLUME 95.4 fl (80.0-96.0); MONO # 0.6 10^3/uL (0.0-0.8); MONO % 9.3 % (2.0-8.0); NEUTROPHILS # 4.4 10^3/uL (1.5-8.5); NEUTROPHILS % 65.5 % (36.0-66.0); PLATELET COUNT, AUTOMATED 187 10^3/uL (150-450); RED BLOOD COUNT 3.24 10^6/uL (4.00-5.40); WHITE BLOOD COUNT 6.8 10^3/uL (4.0-10.0)
[2024-11-21 19:32] LABS: HEMATOCRIT 30.7 % (36.0-47.0)
[2024-11-21 19:38] LABS: ALBUMIN 3.1 G/DL (3.2-5.2); BILIRUBIN,TOTAL 0.2 MG/DL (0.3-1.2); CALCIUM LEVEL 8.9 MG/DL (8.3-10.6); CREATININE FOR GFR 1.59 MG/DL (0.55-1.30); FREE T4 1.33 NG/DL (0.89-1.76); GLOMERULAR FILTRATION RATE 32.7 (>32); PERCENT SATURATION 23.4 % (13.2-45.0); POTASSIUM SERUM 4.1 MMOL/L (3.5-5.1); THYROID STIMULATING HORMONE 0.254 uIU/ML (0.55-4.78); TOTAL PROTEIN 5.6 G/DL (5.7-8.2)
[2024-11-21 19:39] LABS: FERRITIN 681.5 NG/ML (7.3-270.7)
[2024-11-21 19:48] LABS: HEMOGLOBIN A1c 5.9 % (4.0-6.0)
== END ==
LOC: M SFHCPLAZ 14:05
PROVIDERS: ATTEND Student in an Organized Health Care Education/Training Program
DX: E11.21 Type 2 diabetes mellitus with diabetic nephropathy (principal); E03.9 Hypothyroidism, unspecified; E53.8 Deficiency of other specified B group vitamins; D63.8 Anemia in other chronic diseases classified elsewhere

== ENCOUNTER 2024-12-04 12:39 | Outpatient (CLI) | payer MEDICARE, MEDICAID ==
[~2024-12-04] VITALS: Ht 152.4 cm; Wt 80.0 kg
[~2024-12-04 12:39] MED LIST changes: +ALBUTEROL SULFATE 2.5MG/0.5ML INH CONCENTRATE NEB SOLN INH PRN; -CLOT10TR PO; +CLOT10TR11 PO; +EPINEPHrine INJ 1 MG/ML 1ML AMP IM PRN; +diphenhydrAMINE 50MG/ML VIAL IV PRN; +methylPREDNISolone 125MG 2ML VIAL IV PRN
[2024-12-04 13:00] VITALS: BP 133/78; O2SAT 95
[2024-12-04] MEDS: IRON SUCROSE 100 MG, IRON SUCROSE COMPLEX 200 MG in NS 250 ML IV ONE (13:47)
[2024-12-04 15:27] VITALS: BP 130/65; O2SAT 99
== END 2024-12-04 15:30 | disposition home or self-care (01) ==
LOC: M INFU 12:39
PROVIDERS: ATTEND Student in an Organized Health Care Education/Training Program
DX: N18.9 Chronic kidney disease, unspecified (principal); D63.1 Anemia in chronic kidney disease; Z88.0 Allergy status to penicillin; Z88.2 Allergy status to sulfonamides; Z88.5 Allergy status to narcotic agent; Z88.8 Allergy status to other drugs, medicaments and biological substances; Z91.89 Other specified personal risk factors, not elsewhere classified
CPT/HCPCS: 96365; 96366; J1756

== ENCOUNTER → 2024-12-05 | Outpatient (CLI) | payer MEDICARE, MEDICAID ==
[~2024-12-05] MED LIST changes: -ALBUTEROL SULFATE 2.5MG/0.5ML INH CONCENTRATE NEB SOLN INH PRN; -EPINEPHrine INJ 1 MG/ML 1ML AMP IM PRN; -diphenhydrAMINE 50MG/ML VIAL IV PRN; -methylPREDNISolone 125MG 2ML VIAL IV PRN
== END ==
LOC: M PLAIMG 08:31
PROVIDERS: ATTEND Internal Medicine Cardiovascular Disease
DX: I50.32 Chronic diastolic (congestive) heart failure (principal); I08.3 Combined rheumatic disorders of mitral, aortic and tricuspid valves; I50.810 Right heart failure, unspecified; I27.20 Pulmonary hypertension, unspecified

== ENCOUNTER → 2024-12-08 | Outpatient (CLI) | payer MEDICARE, MEDICAID | LOC: M WHC 13:45 | PROVIDERS: ATTEND Student in an Organized Health Care Education/Training Program | DX: Z78.0 Asymptomatic menopausal state (principal); M85.831 Other specified disorders of bone density and structure, right forearm ==

== ENCOUNTER → 2025-02-13 | Outpatient (REF) | payer MEDICARE, MEDICAID ==
[~2025-02-13] MED LIST changes: +CALC0.5C6 PO; +DOXY100C3 PO; +IPRA3SP NARES; +LEVO75TAB PO; +MAGN400T35 PO; +REXU1TAB PO; +SEMA1PEN2 SC; +TOUJ1.2I SC
[2025-02-13 19:12] LABS: BASO # 0.0 10^3/uL (0.0-0.2); BASO % 0.4 % (0.0-1.0); EOS # 0.2 10^3/uL (0.0-0.5); EOS % 3.3 % (0.0-3.0); LYMPH # 1.0 10^3/uL (1.5-5.0); LYMPH % 21.9 % (24.0-44.0); MONO # 0.3 10^3/uL (0.0-0.8); MONO % 7.5 % (2.0-8.0); NEUTROPHILS # 3.0 10^3/uL (1.5-8.5); NEUTROPHILS % 66.5 % (36.0-66.0); PLATELET COUNT, AUTOMATED 210 10^3/uL (150-450)
[2025-02-13 19:17] LABS: CALCIUM LEVEL 8.2 MG/DL (8.3-10.6); CARBON DIOXIDE LEVEL 30.0 MMOL/L (20-31); CHLORIDE LEVEL 103.0 MMOL/L (98-107); CREATININE FOR GFR 1.3 MG/DL (0.55-1.30); GLOMERULAR FILTRATION RATE 41.6 (>32); POTASSIUM SERUM 4.7 MMOL/L (3.5-5.1); SODIUM LEVEL 144.0 MMOL/L (136-145)
== END ==
LOC: M LABDRWAD 17:47
PROVIDERS: ATTEND Physician Assistant
DX: I50.32 Chronic diastolic (congestive) heart failure (principal)

== ENCOUNTER → 2025-02-21 | Outpatient (CLI) | payer MEDICARE, MEDICAID ==
[2025-02-21 13:42] LABS: IRON (FE) 53.0 UG/DL (50-170)
[2025-02-21 13:43] LABS: PERCENT SATURATION 20.2 % (13.2-45.0)
== END ==
LOC: M PLALAB 11:38
PROVIDERS: ATTEND Student in an Organized Health Care Education/Training Program
DX: M79.641 Pain in right hand (principal); D63.8 Anemia in other chronic diseases classified elsewhere

== ENCOUNTER → 2025-02-28 | Outpatient (REF) | payer MEDICARE, MEDICAID ==
[2025-02-28 19:29] LABS: CALCIUM LEVEL 8.6 MG/DL (8.3-10.6); CARBON DIOXIDE LEVEL 30.0 MMOL/L (20-31); CHLORIDE LEVEL 101.0 MMOL/L (98-107); CREATININE FOR GFR 1.71 MG/DL (0.55-1.30); GLOMERULAR FILTRATION RATE 29.9 (>32); POTASSIUM SERUM 4.1 MMOL/L (3.5-5.1); SODIUM LEVEL 144.0 MMOL/L (136-145)
== END ==
LOC: M LABDRWAD 18:27
PROVIDERS: ATTEND Physician Assistant
DX: I50.32 Chronic diastolic (congestive) heart failure (principal)

== ENCOUNTER 2025-03-20 07:25 | Outpatient (CLI) | payer MEDICARE, MEDICAID ==
[~2025-03-20] VITALS: Ht 152.4 cm; Wt 80.9 kg
[~2025-03-20 07:25] MED LIST changes: +ALBUTEROL SULFATE 2.5 MG/0.5 ML INH CONCENTRATE NEB SOLN INH PRN; +EPINEPHrine INJ 1 MG/ML 1ML AMP IM PRN; +NS (Normal Saline) 0.9% 1,000 ML IV SCH; +diphenhydrAMINE 50 MG/ML VIAL IV PRN
[2025-03-20 07:30] VITALS: BP 160/67; O2SAT 98
[2025-03-20] MEDS: IRON SUCROSE 300 MG in NS 250 ML IV ONE (08:25)
[2025-03-20 10:00] VITALS: BP 122/58; O2SAT 97
== END 2025-03-20 10:05 | disposition home or self-care (01) ==
LOC: M INFU 07:25
PROVIDERS: ATTEND Internal Medicine Nephrology
DX: N18.9 Chronic kidney disease, unspecified (principal); D63.1 Anemia in chronic kidney disease; Z88.0 Allergy status to penicillin; Z88.2 Allergy status to sulfonamides; Z88.8 Allergy status to other drugs, medicaments and biological substances; Z88.5 Allergy status to narcotic agent; Z91.89 Other specified personal risk factors, not elsewhere classified
CPT/HCPCS: 96365; J1756

== ENCOUNTER 2025-03-27 10:44 | Outpatient (CLI) | payer MEDICARE, MEDICAID ==
[~2025-03-27] VITALS: Ht 152.4 cm; Wt 81.8 kg
[~2025-03-27 10:44] MED LIST changes: -NS (Normal Saline) 0.9% 1,000 ML IV SCH
[2025-03-27] MEDS ORDERED: NS (Normal Saline) 0.9% 1,000 ML IV SCH (11:00)
[2025-03-27 11:15] VITALS: BP 127/58; O2SAT 97
[2025-03-27] MEDS: IRON SUCROSE 300 MG in NS 250 ML OVER 90 MIN. IV ONE (11:25)
[2025-03-27 13:10] VITALS: BP 148/70; O2SAT 98
== END 2025-03-27 13:10 | disposition home or self-care (01) ==
LOC: M INFU 10:44
PROVIDERS: ATTEND Internal Medicine Nephrology
DX: N18.9 Chronic kidney disease, unspecified (principal); D63.1 Anemia in chronic kidney disease
CPT/HCPCS: 96365; 96366; J1756

== ENCOUNTER 2025-04-03 10:56 | Outpatient (CLI) | payer MEDICAID, MEDICARE ==
[~2025-04-03] VITALS: Ht 152.4 cm; Wt 81.8 kg
[2025-04-03 11:00] VITALS: BP 123/57; O2SAT 97
[2025-04-03] MEDS ORDERED: NS (Normal Saline) 0.9% 1,000 ML IV SCH (11:00)
[2025-04-03] MEDS: IRON SUCROSE 300 MG in NS 250 ML OVER 90 MIN. IV ONE (11:09)
[2025-04-03 12:55] VITALS: BP 131/62; O2SAT 99
== END 2025-04-03 13:00 ==
LOC: M INFU 10:56
PROVIDERS: ATTEND Internal Medicine Nephrology
DX: N18.9 Chronic kidney disease, unspecified (principal); D63.1 Anemia in chronic kidney disease; Z88.0 Allergy status to penicillin; Z88.2 Allergy status to sulfonamides; Z88.5 Allergy status to narcotic agent; Z88.8 Allergy status to other drugs, medicaments and biological substances; Z91.89 Other specified personal risk factors, not elsewhere classified
CPT/HCPCS: 96365; 96366; J1756

== ENCOUNTER 2025-04-26 09:54 | Day surgery (SDC) | payer MEDICARE, MEDICAID ==
[~2025-04-26] VITALS: Ht 152.4 cm; Wt 83.0 kg
[~2025-04-26 09:54] MED LIST changes: -ALBUTEROL SULFATE 2.5 MG/0.5 ML INH CONCENTRATE NEB SOLN INH PRN; +ASPI81TA26 PO; -EPINEPHrine INJ 1 MG/ML 1ML AMP IM PRN; +FARX1TAB3 PO; -diphenhydrAMINE 50 MG/ML VIAL IV PRN
[2025-04-26] MEDS ORDERED: LIDOCAINE 2% INJ 100 MG/5 ML SYRINGE As Ordered ONE (10:24)
[2025-04-26 11:36] VITALS: TEMP 97.5
[2025-04-26 11:54] VITALS: BP 125/59; O2SAT 98
== END 2025-04-26 12:06 | disposition home or self-care (01) ==
LOC: M OPP 09:54
PROVIDERS: ATTEND Surgery
DX: D12.6 Benign neoplasm of colon, unspecified (principal); K57.30 Diverticulosis of large intestine without perforation or abscess without bleeding; K62.5 Hemorrhage of anus and rectum; D50.9 Iron deficiency anemia, unspecified; K22.4 Dyskinesia of esophagus; K31.7 Polyp of stomach and duodenum; R13.10 Dysphagia, unspecified; G47.30 Sleep apnea, unspecified; Z88.0 Allergy status to penicillin; Z88.1 Allergy status to other antibiotic agents; Z88.2 Allergy status to sulfonamides; Z88.5 Allergy status to narcotic agent; Z88.8 Allergy status to other drugs, medicaments and biological substances; Z91.048 Other nonmedicinal substance allergy status; Z79.82 Long term (current) use of aspirin; Z79.899 Other long term (current) drug therapy; Z87.891 Personal history of nicotine dependence
CPT/HCPCS: 43255; 45385; 88305; J3010

== ENCOUNTER → 2025-04-30 | Outpatient (CLI) | payer MEDICARE, MEDICAID ==
[2025-04-30 18:06] LABS: BASO # 0.0 10^3/uL (0.0-0.2); BASO % 0.5 % (0.0-1.0); EOS # 0.3 10^3/uL (0.0-0.5); EOS % 4.4 % (0.0-3.0); LYMPH # 1.6 10^3/uL (1.5-5.0); LYMPH % 20.5 % (24.0-44.0); MONO # 0.5 10^3/uL (0.0-0.8); MONO % 6.6 % (2.0-8.0); NEUTROPHILS # 5.2 10^3/uL (1.5-8.5); NEUTROPHILS % 67.5 % (36.0-66.0); PLATELET COUNT, AUTOMATED 221 10^3/uL (150-450)
[2025-04-30 18:11] LABS: ALT/SGPT 12.0 U/L (7.0-40); AST/SGOT 17.0 U/L (<34); CALCIUM LEVEL 8.7 MG/DL (8.3-10.6); CARBON DIOXIDE LEVEL 31.0 MMOL/L (20-31); CHLORIDE LEVEL 100.0 MMOL/L (98-107); CHOLESTEROL LEVEL 191.0 MG/DL (<200); CHOLESTEROL RISK RATIO 3.33 (<5); CREATININE FOR GFR 2.01 MG/DL (0.55-1.30); GLOMERULAR FILTRATION RATE 24.6 (>32); LDL CHOLESTEROL 100.7 MG/DL (<100); MAGNESIUM LEVEL 1.7 MG/DL (1.8-2.4); NON-HDL-C 133.7 MG/DL; POTASSIUM SERUM 4.3 MMOL/L (3.5-5.1); SODIUM LEVEL 139.0 MMOL/L (136-145); TRIGLYCERIDES LEVEL 165.0 MG/DL (<150)
== END ==
LOC: M LABDRWAD 11:19
PROVIDERS: ATTEND Physician Assistant
DX: I25.10 Atherosclerotic heart disease of native coronary artery without angina pectoris (principal); I50.32 Chronic diastolic (congestive) heart failure

== ENCOUNTER → 2025-05-31 | Outpatient (REF) | payer MEDICARE, MEDICAID ==
[~2025-05-31] MED LIST changes: +ATOR80TA59 PO; +B-121TAB3 PO; +FLUT1BLS6 INH; +IPRA0.00 INH
[2025-05-31 18:30] LABS: ALT/SGPT 16.0 U/L (7.0-40); AST/SGOT 19.0 U/L (<34); CALCIUM LEVEL 9.1 MG/DL (8.3-10.6); CARBON DIOXIDE LEVEL 32.0 MMOL/L (20-31); CHLORIDE LEVEL 98.0 MMOL/L (98-107); CHOLESTEROL LEVEL 180.0 MG/DL (<200); CHOLESTEROL RISK RATIO 3.08 (<5); CREATININE FOR GFR 2.41 MG/DL (0.55-1.30); GLOMERULAR FILTRATION RATE 19.8 (>32); LDL CHOLESTEROL 96.4 MG/DL (<100); MAGNESIUM LEVEL 2.0 MG/DL (1.8-2.4); NON-HDL-C 121.6 MG/DL; POTASSIUM SERUM 4.4 MMOL/L (3.5-5.1); SODIUM LEVEL 140.0 MMOL/L (136-145); TRIGLYCERIDES LEVEL 126.0 MG/DL (<150)
== END ==
LOC: M LABDRWAD 17:26
PROVIDERS: ATTEND Physician Assistant
DX: E78.5 Hyperlipidemia, unspecified (principal); E83.42 Hypomagnesemia

== ENCOUNTER 2025-06-02 15:31 | Emergency (ER) | payer MEDICARE, MEDICAID ==
[~2025-06-02] VITALS: Ht 152.4 cm; Wt 79.5 kg
[~2025-06-02 15:31] MED LIST changes: -ATOR80TA59 PO; -B-121TAB3 PO; -FLUT1BLS6 INH; -IPRA0.00 INH
[2025-06-02 16:17] LABS: BASO # 0.0 10^3/uL (0.0-0.2); BASO % 0.6 % (0.0-1.0); EOS # 0.2 10^3/uL (0.0-0.5); EOS % 2.8 % (0.0-3.0); LYMPH # 1.3 10^3/uL (1.5-5.0); LYMPH % 18.2 % (24.0-44.0); MONO # 0.5 10^3/uL (0.0-0.8); MONO % 6.4 % (2.0-8.0); NEUTROPHILS # 5.2 10^3/uL (1.5-8.5); NEUTROPHILS % 71.9 % (36.0-66.0); PLATELET COUNT, AUTOMATED 222 10^3/uL (150-450)
[2025-06-02 16:40] LABS: ALT/SGPT 18 U/L (7.0-40); AST/SGOT 27 U/L (<34); CALCIUM LEVEL 9.3 MG/DL (8.3-10.6); CARBON DIOXIDE LEVEL 30 MMOL/L (20-31); CHLORIDE LEVEL 97 MMOL/L (98-107); CREATININE FOR GFR 2.16 MG/DL (0.55-1.30); GLOMERULAR FILTRATION RATE 22.6 (>32); POTASSIUM SERUM 4.2 MMOL/L (3.5-5.1); SODIUM LEVEL 139 MMOL/L (136-145)
[2025-06-02 16:51] LABS: INR 0.98
[2025-06-03] MEDS ORDERED: LABETALOL 100 MG/20 ML VIAL IV PRN (00:45)
[2025-06-03] MEDS ORDERED: GLUCOSE 4 GM CHEW PO PRN (00:45)
[2025-06-03] MEDS ORDERED: GLUCAGON INJ 1 MG VIAL SC PRN (00:45)
[2025-06-03] MEDS ORDERED: DEXTROSE 50% 50 ML SYRINGE IV PRN (00:45)
[2025-06-03] MEDS: LR 1,000 ML IV SCH (01:00)
[2025-06-03] MEDS: PANTOPRAZOLE SODIUM 40 MG in DEXTROSE 5% (D5W) ADV/MINI-BAG 50 ML IV SCH (01:00)
[2025-06-03] MEDS ORDERED: ATOR80TA59 PO (01:39)
[2025-06-03] MEDS ORDERED: B-121TAB3 PO (02:06)
[2025-06-03] MEDS ORDERED: MAGN400T35 PO (02:06)
[2025-06-03] MEDS ORDERED: HOME MED LIST COMPLETE! XX SCH (02:10)
[2025-06-03] MEDS ORDERED: IPRA0.00 INH (05:17)
[2025-06-03] MEDS ORDERED: FLUT1BLS6 INH (05:17)
[2025-06-03] MEDS: LEVOTHYROXINE 100 MCG (0.1 MG) 5ML SDV PF (SOLUTION FORM) IV SCH (07:29)
[2025-06-03] MEDS: INSULIN LISPRO (NovoLOG) PER UNIT SC SCH (07:38)
[2025-06-03] MEDS: KCL 40MEQ IN D5/0.45NS 1000ML 1,000 ML IV SCH (07:49)
[2025-06-03 08:30] VITALS: BP 152/65
[2025-06-03] MEDS: FUROSEMIDE 40 MG/4 ML VIAL IV SCH (08:30)
[2025-06-03 08:35] LABS: BASO # 0.0 10^3/uL (0.0-0.2); BASO % 0.5 % (0.0-1.0); EOS # 0.2 10^3/uL (0.0-0.5); EOS % 3.1 % (0.0-3.0); LYMPH # 1.2 10^3/uL (1.5-5.0); LYMPH % 15.8 % (24.0-44.0); MONO # 0.6 10^3/uL (0.0-0.8); MONO % 8.2 % (2.0-8.0); NEUTROPHILS # 5.3 10^3/uL (1.5-8.5); NEUTROPHILS % 72.0 % (36.0-66.0); PLATELET COUNT, AUTOMATED 186 10^3/uL (150-450)
[2025-06-03 09:09] LABS: ALT/SGPT 13.0 U/L (7.0-40); AST/SGOT 24.0 U/L (<34); CALCIUM LEVEL 9.2 MG/DL (8.3-10.6); CARBON DIOXIDE LEVEL 30.0 MMOL/L (20-31); CHLORIDE LEVEL 101.0 MMOL/L (98-107); CREATININE FOR GFR 1.99 MG/DL (0.55-1.30); GLOMERULAR FILTRATION RATE 24.9 (>32); POTASSIUM SERUM 3.9 MMOL/L (3.5-5.1); SODIUM LEVEL 141.0 MMOL/L (136-145)
[2025-06-03 11:27] VITALS: BP 122/58; TEMP 97.8; O2SAT 96
== END 2025-06-03 11:28 | disposition home or self-care (01) ==
LOC: M ED 15:31
DX: K92.2 Gastrointestinal hemorrhage, unspecified (principal); I11.0 Hypertensive heart disease with heart failure; E11.9 Type 2 diabetes mellitus without complications; N18.30 Chronic kidney disease, stage 3 unspecified; E78.5 Hyperlipidemia, unspecified; J45.909 Unspecified asthma, uncomplicated; K57.30 Diverticulosis of large intestine without perforation or abscess without bleeding; Z87.19 Personal history of other diseases of the digestive system; F41.9 Anxiety disorder, unspecified; F32.9 Major depressive disorder, single episode, unspecified; K31.84 Gastroparesis; Z79.01 Long term (current) use of anticoagulants; Z79.899 Other long term (current) drug therapy; Z88.0 Allergy status to penicillin; Z88.2 Allergy status to sulfonamides; Z88.5 Allergy status to narcotic agent; Z91.89 Other specified personal risk factors, not elsewhere classified; Z88.8 Allergy status to other drugs, medicaments and biological substances; E83.42 Hypomagnesemia
CPT/HCPCS: 36415; 71045; 74176; 80047; 80048; 80053; 80061; 80076; 83690; 83735; 83880; 85014; 85018; 85025; 85610; 85730; 86850; 86900; 86901; 87486; 87581; 87633; 87798; 93041; 94760; 96365; 96366; 96367; 96375; 99285; J1938; J2470

== ENCOUNTER → 2025-07-11 | Outpatient (CLI) | payer MEDICAID, MEDICARE, OTHER ==
[~2025-07-11] MED LIST changes: +ATOR80TA59 PO; +B-121TAB3 PO; +FLUT1BLS6 INH; +IPRA0.00 INH
[2025-07-11 14:04] LABS: PLATELET COUNT, AUTOMATED 211 10^3/uL (150-450)
[2025-07-11 14:26] LABS: ALT/SGPT 18.0 U/L (7.0-40); AST/SGOT 20.0 U/L (<34); CALCIUM LEVEL 8.5 MG/DL (8.3-10.6); CARBON DIOXIDE LEVEL 29.0 MMOL/L (20-31); CHLORIDE LEVEL 98.0 MMOL/L (98-107); CREATININE FOR GFR 1.93 MG/DL (0.55-1.30); GLOMERULAR FILTRATION RATE 25.9 (>32); POTASSIUM SERUM 4.0 MMOL/L (3.5-5.1); SODIUM LEVEL 138.0 MMOL/L (136-145)
== END ==
LOC: M PLALAB 11:11
DX: R09.89 Other specified symptoms and signs involving the circulatory and respiratory systems (principal); J40 Bronchitis, not specified as acute or chronic